=== PATIENT | male | born 1955 | race Caucasian/White ===

== ENCOUNTER 2020-09-16 10:00 | Outpatient (RCR) | payer BC, SELFPAY ==
--- NOTE | 2020-08-27 14:05 | HMH.PTOPEV ---
PT Outpatient Evaluation Rehab PT Outpatient Evaluation Start: 08/27/20 13:43 Freq: Status: Active Protocol: Document 08/27/20 13:43 GARY (Rec: 08/27/20 14:05 [email or web address] [id number]) Electronically Signed By Fran Newsome, PT 08/27/20 13:43 Outpatient Therapy Subjective History Subjective History Patient is a 65 year old male presenting to outpatient PT with reports of chronic LBP with RLE radicular symptoms that have progressively gotten worse over the past 4-5 months. Patient underwent L4/ 5 fusion approx 20 years ago, as well as lumbar spine discectomy. Observation indicates R lumbar lateral shift. Radicular symptoms specific to R heel and R anterior thigh/groin areas. Comorbidities inclulde hx of multiple lumbar spine surgeries, R knee pain Chief Complaint Pain,Paresthesia Symptom Type Ache,Sharp,Burning,Shooting Symptoms Relieved By Rest/Positioning Prior Functional Limitations None Current Functional Limitations Lifting,Housework,Standing, Squatting,Recreation Activity, Walking,Bending/Stooping Symptom Description Constant but Variable Level of pain today (0-10) 3 Pain scale - at its best (0-10) 2 Pain scale - at its worst (0-10) 8 Lumbopelvic Eval Posture Thoracic Spine Posture Standing Position Neutral Lumbar Spine Posture Standing Position Neutral Assistive device Assistive Devices None / NA Palapation tenderness right paraspinal tenderness Yes: 2/4 buttock tenderness Yes: 2/4 Lumbar/Sacral Palpation Findings Tenderness Accessory Movement L2 bilateral L3 bilateral L4 bilateral L5 bilateral S1 bilateral Range of Motion Lumbar Spine Active Flexion Range of 70 Motion (degrees) Lumbar Spine Active Extension Range of 18 inc radic Motion (degrees) Left Lumbar Spine Lateral Flexion Active 22 Range of Motion (degrees) Right Lumbar Spine Lateral Flexion 10 inc radic Active Range of Motion (degrees) Manual Muscle Test Bilateral Knee Extension Strength Grade 4 Good Knee Flexion Strength Grade 4 Good Hip Flexion Strength Grade 4 Good Extensor Halluc
== END 2020-09-16 10:05 | disposition home or self-care (01) ==
LOC: PT 10:00
PROVIDERS: PCP Internal Medicine Adolescent Medicine; Visit Provider Nurse Practitioner Family
DX: M54.41 Lumbago with sciatica, right side (principal)
CPT/HCPCS: 97010; 97012; 97014; 97110; 97163; G0283

== ENCOUNTER 2020-09-27 10:31 | Emergency (ER) | payer BC, SELFPAY ==
[2020-09-27] VITALS (7 sets, daily range): BP systolic 143–194; BP diastolic 45–83; PULSE 55–79; RESP 16–20; TEMP 37.2–37.4; O2SAT 95–99; BMI 26.6
--- NOTE | 2020-09-27 10:54 | CT_ITS ---
PROCEDURE: CT LUMBAR SPINE WO CON CLINICAL HISTORY: pain Low back pain with pain going into the right leg, prior lumbar surgery COMPARISON: No exams were available for comparison TECHNIQUE: Axial images obtained with sagittal and coronal reformats. All CT scans at the facility use one or more dose reduction, viz: automated exposure control, ma/kV adjustment per patient size (including targeted exams where dose is matched to indication, i.e. head), or iterative reconstruction technique. FINDINGS: There are no previous exams available for comparison. There is normal alignment. T10-T11: Mild degenerative disc disease. Left-sided facet and uncovertebral hypertrophy with left-sided lateral recess and foraminal narrowing. T11-T12: Degenerative disc disease with facet and ligamentum hypertrophy. 3 mm anterolisthesis of T11. There is mild wedging of T12 with loss of height anteriorly of 20 percent. T12-L1: Degenerative disc disease with endplate hypertrophic change with 2 mm retrolisthesis of T12. There is bulging disc. L1-L2: Degenerative disc disease with endplate hypertrophy with bulging disc eccentric toward the left with facet and ligamentum hypertrophy with mild left-sided foraminal narrowing. L2-L3: Degenerate disc disease with bulging disc along facet and ligamentum hypertrophy. There is a broad-based right paracentral and foraminal disc protrusion along with endplate hypertrophy on the right with moderate right lateral recess and foraminal narrowing. L3-L4: Degenerative disc disease with endplate hypertrophic change. There is bulging disc which is eccentric toward the right with prominent endplate spurring laterally on the right. There is increased soft tissue density within the right-sided neural foramen with enlargement of the foramen. This area measures 2 cm transverse and 0.9 cm AP a neoplastic process is considered such as a nerve sheath tumor. MRI without and with contrast suggested for further evaluation. An extruded herniated disc would be included in the differential diagnosis but should not cause foraminal enlargement. There is right lateral recess narrowing at this level and there is mild bilateral foraminal narrowing from bony hypertrophy. L4-5: Postsurgical changes with prior posterior laminectomy. There are cage disc spacers present with the posterior aspect of the right cage screw projecting slightly into the foraminal area. L5-S1: Degenerate disc disease with bulging disc somewhat eccentric toward the right with right lateral recess and foraminal narrowing. There is an air density present in the anterior aspect of the canal on the right and could be related to air within extruded herniated disc. MRI suggested for further evaluation. There is mild lumbar scoliosis convex left. IMPRESSION: 1. Abnormal CT of the lumbar spine with multilevel lumbar spondylosis with degenerative disc disease with bulging disc, osteophyte formation, and facet and ligamentum hypertrophy causing lateral recess narrowing and foraminal narrowing. Please see above for detailed description at each level. 2. Widening of the right L3-L4 neural foramen with increased soft tissue density in the foramen. 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 Extruded herniated disc would be included in the differential diagnosis. MRI without and with gadolinium enhancement suggested for further evaluation Dictated by: Reece Pritchard MD 09/27/2020 11:55 Reece Pritchard MD in [facility] 09/27/2020 11:55
--- NOTE | 2020-09-27 10:56 | CA_ITS ---
APPROVED REPORT Bilateral Lower Extremity Venous Study for Rate Reviewer: VIVIAN Indications Lower Extremity Pain: Right pain Vein Imaging CFV (R): compressive, spontaneous, phasic, augmentation SFJ (R): compressive, spontaneous, phasic, augmentation FEM (R): compressive, spontaneous, phasic, augmentation POP (R): Partially Compressible, Thrombus DFV (R): compressive, spontaneous, phasic, augmentation PTV (R): Compressible GSV (R): Compressible Peroneals (R):Compressible GAS (R): Compressible Findings A DVT is visualized in the popliteal vein of the right lower extremity. Reported to ED physician Conclusion A DVT is visualized in the popliteal vein of the right lower extremity. Reported to ED physician Electronically signed by : Reece Pritchard MD 09/29/2020 15:54:43
--- NOTE | 2020-09-27 10:57 | PC.NURSE ---
notified RT staff of doppler order, states she will call composition weatherboard installer staff and let us know when they will be here.
--- NOTE | 2020-09-27 11:20 | PC.NURSE ---
per RT, [facility] lab staff state they will be here in approx 1 hour for ordered test.
--- NOTE | 2020-09-27 12:21 | HMH.EDGENADL ---
ED Disposition Clinical Impression: Nerve sheath tumor, Intractable back pain, Degenerative disc disease, lumbar Disposition: Xfer Short-Term Hosp Condition on Discharge: Good Instructions: DI for Low Back Pain Referrals: Harris Romero MD [Primary Care Provider] - - Critical Care Critical Care Time: No Attestation: On 09/27/20, the high probability of a clinically significant, sudden or life threatening deterioration of the following system(s) required my full and direct attention, intervention and personal management. The time I documented below is in addition to time spent performing reported procedures but includes the following listed in this critical care notation. Medical Decision Making - Medical Records Medical records reviewed: Yes: I reviewed the patient's medical records. - Alcon Inquiry Pt receiving controlled substance: No Vital Signs: 09/27/20 10:37 09/27/20 11:15 Temperature 99.3 F Temperature Source Oral Pulse Rate [Right Radial] 79 67 Respiratory Rate 17 18 Blood Pressure [Right Arm] 194/83 H 168/7 H Blood Pressure Mean [Right Arm] 120 60 02 Sat by Pulse Oximetry 97 95 Oxygen Delivery Method Room Air Room Air Orders (Tests/Meds): ED MEDICATIONS Discontinued Medications Generic Name Dose Route Start Last Admin Trade Name Freq PRN Reason Stop Dose Admin Diazepam 5 mg 09/27/20 10:55 09/27/20 11:07 Diazepam 10mg/2ml Syringe IV 09/27/20 10:56 5 mg ONCE ONE Administration Morphine Sulfate 4 mg 09/27/20 10:55 09/27/20 11:07 Morphine 4mg/Ml Syringe IV 09/27/20 10:56 4 mg ONCE ONE Administration ORDERS Category Date Time Status CA venous doppler LE RT Stat Y 09/27/20 10:56 Ordered Medical Decision Narrative: 65-year-old male with known sciatica status post multiple back surgeries presenting with acutely worsening pain without interval trauma to the right lower extremity. Nontoxic, afebrile, hemodynamically stable, nonfocal, neuro intact. CT of the L-spine was obtained and demonstrated multilevel spondylolysis with concern for possible nerve sheath tumor. Pain was controlled with IV morphine and Valium. CBC and CMP are nonactionable. No MRI available at this facility so we will transfer for further work-up and management. Patient remained stable in my care. General Adult HPI - General Chief complaint: Back Pain/Injury Stated complaint: rt leg pain, sciatica Time Seen by Provider: 09/27/20 11:01 Mode of Arrival: Wheelchair Limitations: No Limitations Description of Symptoms (Recalled from ER Triage Doc. by RN): pt presents to ed with c/o sciatic pain that is in his posterior thigh and it radiates into his foot. pt states that he has been seeing dr romero for this complaint and the last few mornings the pain has worsened and it unbearable. no knew injury. back surgery x 2 in the past. - History of Present Illness HPI narrative: 65-year-old male with a history of sciatica presenting with acute on chronic pain to his right lower extremity that feels like electrical shooting pains from his back down into his foot on the posterior aspect of his right lower extremity. He normally takes hydrocodone for this but this has not helped in the last 2 weeks. There has been no interval trauma. He is now unable to ambulate due to the pain. He also has some numbness and tingling in his right foot. No loss or changes in bowel or bladder. No saddle anesthesia. No urinary retention. No fever, chills, nausea, vomiting, diarrhea, constipation. - Related Data Home Medications Medication Instructions Recorded Confirmed No Known Home Medications 09/27/20 09/27/20 Allergies Allergy/AdvReac Type Severity Reaction Status Date / Time No Known Allergies Allergy Verified 06/12/18 08:45 [facility] History - Hepatitis A Screen Drug use history?: No High risk sexual behaviors?: No History of sexually transmitted infection?: No Currently e
--- NOTE | 2020-09-27 12:44 | PC.NURSE ---
Addendum entered by Alyssa Armenta RN 09/27/20 12:49: [facility] Original Note: dr soto consulting with dr hidalgo with spine at [facility]. vascular reports that patient has right popliteal clot. dr soto notified. [facility].
--- NOTE | 2020-09-27 12:57 | PC.NURSE ---
[facility] has no beds available.
--- NOTE | 2020-09-27 12:59 | PC.NURSE ---
PT AND FAMILY UPDATED ON PLAN OF CARE
--- NOTE | 2020-09-27 13:01 | PC.NURSE ---
[facility] Called for pt transfer, paging hospitalist.
--- NOTE | 2020-09-27 13:25 | PC.NURSE ---
consulted with pharmacy to verify lovenox dosing.
--- NOTE | 2020-09-27 14:13 | PC.NURSE ---
dr soto consulting with dr tripp concerning possible transfer.
--- NOTE | 2020-09-27 14:34 | PC.NURSE ---
waiting for neuro surgeon to call back from [facility]
--- NOTE | 2020-09-27 14:36 | PC.NURSE ---
Dr Soto speaking with Dr Cerda from [facility]
--- NOTE | 2020-09-27 14:41 | PC.NURSE ---
patient accepted to [facility] by neurosurgery Dr Cerda. dr Cerda to consult with hospitalist. awaiting return call for bed placement.
--- NOTE | 2020-09-27 15:01 | PC.NURSE ---
called with a bed assignment for pt at this time, pt assigned to [facility] and gave number to give report and requested a face sheet.
== END 2020-09-27 15:44 | disposition short-term general hospital (02) ==
PROVIDERS: Emergency Provider Physician Assistant; PCP Internal Medicine Adolescent Medicine
DX: D49.2 Neoplasm of unspecified behavior of bone, soft tissue, and skin (principal); M51.36 Other intervertebral disc degeneration, lumbar region; Z87.891 Personal history of nicotine dependence; M54.31 Sciatica, right side
CPT/HCPCS: 72131; 93971; 96367; 96372; 96374; 96376; 99284

== ENCOUNTER → 2021-04-28 15:02 | Outpatient (CLI) | payer MEDICARE, BC, SELFPAY ==
[2021-04-28 15:33] LABS: Basophils % 0.3 % (0.1-2.0); Eosinophils # 0.2 K/mm3 (0.0-0.4); Eosinophils % 2.8 % (0.1-12.0); Hematocrit 38.6 % (42.0-52.0); Hemoglobin 12.9 g/dL (14.1-18.0); Lymphocytes % 25.4 % (10-50); Mean Corpuscular HGB Conc 33.3 g/dL (31.8-35.4); Mean Corpuscular Hemoglobin 27.7 pg (27.0-31.2); Mean Corpuscular Volume 83.3 fl (80-94); Mean Platelet Volume 7.5 fl (7.4-10.4); Monocytes # 0.5 K/mm3 (0.1-1.0); Monocytes % 5.5 % (1.7-9.3); Neutrophils # 5.3 K/mm3 (1.8-7.8); Neutrophils % 65.9 % (37.0-80.0); Platelet Count 325 K/mm3 (142-424); Red Blood Count 4.64 M/mm3 (4.60-6.20); Red Cell Distribution Width 16.1 % (11.5-17.5); White Blood Count 8.1 K/mm3 (4.8-10.8)
[2021-04-28 17:21] LABS: Chloride 101 mmol/L (98-107); Potassium 5.4 mmoL/L (3.5-5.1); Sodium 136 mmol/L (136-145)
[2021-04-28 17:24] LABS: Alanine Aminotransferase 22 U/L (12-78); Albumin Level 4.3 g/dl (3.5-5.0); Albumin/Globulin Ratio 1.5 (1.1-1.8); Alkaline Phosphatase 178 U/L (38-126); Anion Gap 15.4 mEq/L (5-15); Aspartate Amino Transferase 31 U/L (17-59); Bilirubin,Total 0.3 mg/dl (0.2-1.3); Blood Urea Nitrogen 21 mg/dl (9-20); Calcium 9.5 mg/dl (8.4-10.2); Carbon Dioxide 25 mmol/L (22.0-30.0); Estimated Glomerular Filt Rate 85 ml/min (>60); GFR (African American) 102 ML/MIN (>60); Globulin 2.9 g/dL (1.3-3.2); Glucose 90 mg/dl (74-100); Total Protein,Serum 7.2 g/dl (6.3-8.2)
== END ==
PROVIDERS: Visit Provider Nurse Practitioner Family
DX: M06.00 Rheumatoid arthritis without rheumatoid factor, unspecified site (principal); Z79.899 Other long term (current) drug therapy
CPT/HCPCS: 36415; 80053; 85025

== ENCOUNTER → 2021-11-25 11:33 | Outpatient (CLI) | payer MEDICARE, BC, SELFPAY ==
[2021-11-25 12:00] LABS: Basophils % 0.6 % (0.1-2.0); Eosinophils # 0.1 K/mm3 (0.0-0.4); Eosinophils % 1.7 % (0.1-12.0); Hematocrit 42.8 % (42.0-52.0); Hemoglobin 13.7 g/dL (14.1-18.0); Lymphocytes # 1.5 K/mm3 (0.7-4.5); Lymphocytes % 27.2 % (10-50); Mean Corpuscular HGB Conc 32.1 g/dL (31.8-35.4); Mean Corpuscular Hemoglobin 29.5 pg (27.0-31.2); Mean Corpuscular Volume 91.8 fl (80-94); Mean Platelet Volume 7.7 fl (7.4-10.4); Monocytes # 0.4 K/mm3 (0.1-1.0); Monocytes % 6.9 % (1.7-9.3); Neutrophils # 3.6 K/mm3 (1.8-7.8); Neutrophils % 63.6 % (37.0-80.0); Platelet Count 331 K/mm3 (142-424); Red Blood Count 4.66 M/mm3 (4.60-6.20); Red Cell Distribution Width 14.9 % (11.5-17.5); White Blood Count 5.6 K/mm3 (4.8-10.8)
[2021-11-25 12:32] LABS: Erythrocyte Sedimentation Rate 21 mm/hr (0-20)
[2021-11-25 12:52] LABS: Chol/HDL Ratio 4.3 (1-3.5); Cholesterol 167 mg/dl (140-200); HDL Cholesterol 39 mg/dl (40-60); Triglycerides 174 mg/dl (30-150); VLDL Cholesterol 35 mg/dL (0-40)
[2021-11-25 12:52] LABS: Alanine Aminotransferase 23 U/L (12-78); Albumin Level 4.3 g/dl (3.5-5.0); Albumin/Globulin Ratio 1.7 (1.1-1.8); Alkaline Phosphatase 117 U/L (38-126); Anion Gap 9.9 mEq/L (5-15); Aspartate Amino Transferase 32 U/L (17-59); Bilirubin,Total 0.4 mg/dl (0.2-1.3); Blood Urea Nitrogen 17 mg/dl (9-20); Calcium 9.5 mg/dl (8.4-10.2); Carbon Dioxide 31 mmol/L (22.0-30.0); Chloride 99 mmol/L (98-107); Estimated Glomerular Filt Rate 85 ml/min (>60); GFR (African American) 102 ML/MIN (>60); Globulin 2.5 g/dL (1.3-3.2); Glucose 97 mg/dl (74-100); Potassium 4.9 mmoL/L (3.5-5.1); Sodium 135 mmol/L (136-145); Total Protein,Serum 6.8 g/dl (6.3-8.2); Uric Acid 6.6 mg/dl (3.5-8.5)
[2021-11-25 13:03] LABS: Direct LDL Cholesterol 95.02 mg/dL (100-129)
[2021-11-25 13:08] LABS: C-Reactive Protein 2.8 mg/L (0-4)
== END ==
PROVIDERS: Internal Medicine; Visit Provider Nurse Practitioner Family
DX: Z00.00 Encounter for general adult medical examination without abnormal findings (principal); E78.5 Hyperlipidemia, unspecified; M06.00 Rheumatoid arthritis without rheumatoid factor, unspecified site; M10.9 Gout, unspecified; M15.9 Polyosteoarthritis, unspecified; Z79.899 Other long term (current) drug therapy
CPT/HCPCS: 36415; 80053; 80061; 84550; 85025; 85651; 86140

== ENCOUNTER 2023-01-01 09:45 | Observation (INO) | payer MEDICARE, BC, SELFPAY ==
[2023-01-01] VITALS (18 sets, daily range): BP systolic 121–155; BP diastolic 51–80; PULSE 61–85; RESP 12–22; TEMP 36.6–37; O2SAT 95–99; BMI 27.4
--- NOTE | 2023-01-01 10:18 | HMH.EDGENADL ---
Discharge Plan Disposition Patient Disposition: Home, Self-Care Prescriptions Prescriptions: No Action No Known Home Medications Referrals Follow up/Referrals: Harris Quinn MD [Primary Care Provider] - See instructions Activity Restrictions/Add. Instructions Additional Instructions/Restrictions: You presented today with nausea vomiting and diarrhea most likely viral in etiology. Please return with any significant abdominal pain or inability to tolerate anything by mouth. Clinical Impressions Clinical Impression: Nausea vomiting and diarrhea Instructions Patient Instructions: DI for Diarrhea and Traveler's Diarrhea -- Adult, DI for Diarrhea and Traveler's Diarrhea -- Child, DI for Nausea -- Adult, DI for Nausea -- Child Discharge ED Provider: Aryan Parrish General Adult HPI General Chief complaint: Nausea/Vomiting/Diarrhea Stated complaint: vomiting,diarrhea,fever,post covid Time Seen by Provider: 01/01/23 10:18 Mode of Arrival: Wheelchair Source of Information: Patient and Relative Limitations: No Limitations Description of Symptoms (Recalled from ER Triage Doc. by RN): Presents from home via POV d/t subjective fever, n/v/d since 9p last night. +COVID x 7 days; completed last dose of antivirals 12/30/22. Denies pain. History of Present Illness HPI narrative: Patient is a 67-year-old male presenting with nausea vomiting diarrhea multiple episodes since last night. States he did have some abdominal crampy discomfort however is having no pain right now currently. Denies any chest pain or shortness of breath. His daughter who accompanies him states he did have some dark emesis however he denies any melena or any hematochezia. Pain currently is at a 0. Denies any fever. States that he thought he had a subjective fever however triage vitals were negative and denies a fever at that point. Has not had any antipyretics. Does take a daily aspirin has a history of DVT but is not on any anticoagulants at this point. No sick contacts at home. Has had recent COVID that he is improving from and recently completed Paxlovid. Denies any respiratory symptoms. Related Data Home Medications Medication Instructions Recorded Confirmed No Known Home Medications 09/27/20 09/27/20 Allergies Allergy/AdvReac Type Severity Reaction Status Date / Time No Known Allergies Allergy Verified 06/12/18 08:45 [facility] Disclaimer: The information contained in this section may have been updated after the patient was seen, as this information can be updated by other users. Social History Smoking Status: Never smoker alcohol intake: never current occupational status: retired Travel in the last 8 weeks: None ROS Obtained: Yes All systems reviewed & no additional complaints except as documented Physical Exam General General appearance: alert and in no apparent distress Head Head exam: atraumatic and normocephalic Respiratory Respiratory exam: Present normal lung sounds bilaterally; Absent respiratory distress, wheezes or stridor Cardiovascular Cardiovascular exam: Absent tachycardia Abdominal Exam Abdominal exam: Present soft; Absent distention or tenderness Neurological Exam Neurological exam: Present alert and oriented X3 Medical Decision Making Alcon Inquiry Pt receiving controlled substance: No Alcon was queried for this patient: No Vital Signs: 01/01/23 09:58 01/01/23 10:31 01/01/23 11:00 Temperature 98.3 F Temperature Source Oral Pulse Rate 75 74 Pulse Rate [Right] 85 Respiratory Rate 18 21 12 Blood Pressure 133/52 L 129/54 L Blood Pressure [Right Arm] 146/75 H Blood Pressure Mean 79 79 Blood Pressure Mean [Right Arm] 98 02 Sat by Pulse Oximetry 99 99 99 Oxygen Delivery Method Room Air Room Air Room Air 01/01/23 11:30 Temperature Temperature Source Pulse Rate 78 Pulse Rate [Right] Respiratory Rate 15 Blood Pressure 124/52 L Blood Pressure [Right Arm] B
[2023-01-01 10:31] LABS: Basophils % 0.5 % (0.1-2.0); Eosinophils % 0.4 % (0.1-12.0); Hematocrit 46.5 % (42.0-52.0); Hemoglobin 15.6 g/dL (14.1-18.0); Lymphocytes # 0.5 K/mm3 (0.7-4.5); Mean Corpuscular HGB Conc 33.6 g/dL (31.8-35.4); Mean Corpuscular Volume 89.4 fl (80-94); Mean Platelet Volume 8.3 fl (7.4-10.4); Monocytes # 0.2 K/mm3 (0.1-1.0); Monocytes % 2.2 % (1.7-9.3); Neutrophils # 7.2 K/mm3 (1.8-7.8); Neutrophils % 90.8 % (37.0-80.0); Platelet Count 392 K/mm3 (142-424); Red Cell Distribution Width 14.5 % (11.5-17.5); White Blood Count 7.9 K/mm3 (4.8-10.8)
[2023-01-01 10:33] LABS: MANUAL DIFFERENTIAL MANUAL DIFFERENTIAL (MANUAL DIFF)
[2023-01-01 10:37] LABS: Alanine Aminotransferase 29 U/L (12-78); Albumin Level 4.7 g/dl (3.5-5.0); Albumin/Globulin Ratio 1.4 (1.1-1.8); Alkaline Phosphatase 143 U/L (38-126); Anion Gap 15.2 mEq/L (5-15); Aspartate Amino Transferase 33 U/L (17-59); Bilirubin,Total 0.7 mg/dl (0.2-1.3); Blood Urea Nitrogen 22 mg/dl (9-20); Calcium 9.9 mg/dl (8.4-10.2); Carbon Dioxide 30 mmol/L (22.0-30.0); Chloride 101 mmol/L (98-107); Creatinine Clearance Estimated 77 mL/min (50-200); Estimated Glomerular Filt Rate 75 ml/min (>60); GFR (African American) 90 ML/MIN (>60); Globulin 3.3 g/dL (1.3-3.2); Glucose 175 mg/dl (74-100); Potassium 4.2 mmoL/L (3.5-5.1); Sodium 142 mmol/L (136-145)
[2023-01-01 10:59] LABS: Lymphocytes % 7 % (10-50); Monocytes % 2 % (2-9); Neutrophils % 91 % (42-76); Platelet Estimate Normal; RBC Morphology Normal; Total Cells Counted 100
--- NOTE | 2023-01-01 11:36 | PC.NURSE ---
Ice chips provided. Pt attempting PO challenge. Pt updated on plan of care.
--- NOTE | 2023-01-01 11:55 | PC.NURSE ---
Pt tolerated PO challenge.
--- NOTE | 2023-01-01 12:41 | PC.NURSE ---
Dr. Parrish at bedside to reassess d/t recurrent vomiting. VO for Zofran 4mg IV.
--- NOTE | 2023-01-01 13:05 | PC.NURSE ---
Maria T provided. Phenergan administered. Daughter/patient updated on plan of care. Daughter left bedside and will return.
--- NOTE | 2023-01-01 13:30 | PC.NURSE ---
VALENTINE SANTOS at for update on POC
--- NOTE | 2023-01-01 13:39 | PC.NURSE ---
Gatorade provided. Attempting PO challenge.
--- NOTE | 2023-01-01 14:49 | PC.NURSE ---
Patient resting at this time. Tolerating oral fluids
--- NOTE | 2023-01-01 15:08 | PC.NURSE ---
Assisted patient to bathroom. +nausea/diarrhea. MD notified.
--- NOTE | 2023-01-01 15:21 | PC.NURSE ---
MD at bedside to reassess.
--- NOTE | 2023-01-01 15:29 | PC.NURSE ---
Rounded on patient; call light within reach. Dentures put in denture cups
--- NOTE | 2023-01-01 15:30 | PC.NURSE ---
Dr Parrish speaking with Dr Carney
--- NOTE | 2023-01-01 15:32 | PC.NURSE ---
ER MD at speaking with patient regarding POC
[2023-01-01 15:36] LABS: Influenza A, PCR Not Detected (NotDetected); Influenza B, PCR Not Detected (NotDetected)
--- NOTE | 2023-01-01 16:06 | PC.NURSE ---
Report called to CLEMENTINA Velasquez. Room 204-1.
[2023-01-01 16:11] LABS: Coronavirus 19, PCR Detected (NotDetected)
--- NOTE | 2023-01-01 16:36 | PC.NURSE ---
Pt arrived to the floor at this time
[2023-01-02] VITALS (7 sets, daily range): BP systolic 132–164; BP diastolic 47–58; PULSE 59–77; RESP 16–18; TEMP 36.9–37.4; O2SAT 95–100; BMI 24.6
[2023-01-02 08:30] LABS: Alanine Aminotransferase 20 U/L (12-78); Albumin Level 3.6 g/dl (3.5-5.0); Albumin/Globulin Ratio 1.4 (1.1-1.8); Alkaline Phosphatase 101 U/L (38-126); Anion Gap 10.8 mEq/L (5-15); Aspartate Amino Transferase 30 U/L (17-59); Bilirubin,Total 0.3 mg/dl (0.2-1.3); Blood Urea Nitrogen 20 mg/dl (9-20); Calcium 8.5 mg/dl (8.4-10.2); Carbon Dioxide 30 mmol/L (22.0-30.0); Chloride 106 mmol/L (98-107); Creatinine Clearance Estimated 69 mL/min (50-200); Estimated Glomerular Filt Rate 84 ml/min (>60); GFR (African American) 102 ML/MIN (>60); Globulin 2.6 g/dL (1.3-3.2); Glucose 94 mg/dl (74-100); Potassium 3.8 mmoL/L (3.5-5.1); Sodium 143 mmol/L (136-145); Total Protein,Serum 6.2 g/dl (6.3-8.2)
--- NOTE | 2023-01-02 08:59 | EXP.HP ---
History of Present Illness *Admission Date: 01/01/23 *Reason for visit:: Intractable nausea and vomiting *History of present illness: 67-year-old male with overall good health except for chronic back pain/DJD/sciatic issues who I saw last week in my office with COVID-19 infection. Given his age was placed on Paxlovid and did well over the next 3 to 4 days. He felt much better but about 36 hours ago began to suffer intractable vomiting along with diarrhea. He notes that many of his family members also had COVID-19 infection but their symptom complex had GI symptoms at the beginning of the disease. He lives at home with daughter and grandson who have been ill with a diarrheal illness but this was several days ago. He denies melena or hematochezia or fever. Work-up in the ER showed fairly normal labs and a benign abdomen exam but was admitted for IV fluids and antiemetics given his significant volume of emesis in the ER. [facility] Disclaimer: The information contained in this section may have been updated after the patient was seen, as this information can be updated by other users. Medical History (Updated 01/01/23 @ 16:53 by Eva Gomez RN) DVT (deep venous thrombosis) Surgical History Previous back surgery Family History (Updated 01/01/23 @ 16:53 by Eva Gomez RN) No significant family history Social History Smoking Status: Never smoker alcohol intake: never current occupational status: retired Travel in the last 8 weeks: None Review of Systems Review of Systems Review of systems:: pertinent systems reviewed and negative unless documented below Review of systems (narrative): Denies fevers currently, pulmonary symptoms, anginal symptoms or leg swelling. Meds Home Medications and Allergies Home Medications Medication Instructions Recorded Confirmed Type amlodipine 5 mg tablet 5 mg PO DAILY Hypertension 01/01/23 01/01/23 History aspirin 81 mg tablet,delayed 81 mg PO DAILY Heart failure 01/01/23 01/01/23 History release atorvastatin 80 mg tablet 40 mg PO DAILY Cholesterol 01/01/23 01/01/23 History bisoprolol fumarate 10 mg tablet 10 mg PO DAILY Hypertension 01/01/23 01/01/23 History folic acid 1 mg tablet 1 mg PO DAILY Supplement 01/01/23 01/01/23 History gabapentin 300 mg capsule 300 mg PO PM Rheumatoid arthritis 01/01/23 01/01/23 History hydrocodone 10 mg-acetaminophen 1 tab PO Q6HP PRN PAIN 01/01/23 01/02/23 History 325 mg tablet losartan 100 mg tablet 100 mg PO DAILY Hypertension 01/01/23 01/01/23 History methotrexate sodium 2.5 mg tablet 20 mg PO WEEKLY Arthritis 01/01/23 01/01/23 History New Prescriptions to Start Prescriptions: Allergies Allergy/AdvReac Type Severity Reaction Status Date / Time No Known Allergies Allergy Verified 06/12/18 08:45 Exam Data for Last 24 hours Vital signs and Labs for Last 24 Hours: Temp Pulse Resp BP Pulse Ox 98.5 F 70 17 138/53 L 95 01/02/23 07:47 01/02/23 07:47 01/02/23 07:47 01/02/23 07:47 01/02/23 07:47 Laboratory Results - last 24 hr 01/01/23 10:04: WBC 7.9, RBC 5.20, Hgb 15.6, Hct 46.5, MCV 89.4, MCH 30.0, MCHC 33.6, RDW 14.5, Plt Count 392, MPV 8.3, Neut % (Auto) 90.8 H, Lymph % (Auto) 6.0 L, [place] % (Auto) 2.2, Eos % (Auto) 0.4, Baso % (Auto) 0.5, Neut # (Auto) 7.2, Lymph # (Auto) 0.5 L, [place] # (Auto) 0.2, Eos # (Auto) 0.0, Baso # (Auto) 0.0, Total Counted 100, Neutrophils % (Manual) 91 H, Lymphocytes % (Manual) 7 L, Monocytes % (Manual) 2, Platelet Estimate Normal, RBC Morphology Normal 01/01/23 10:04: Sodium 142, Potassium 4.2, Chloride 101, Carbon Dioxide 30, Anion Gap 15.2 H, BUN 22 H, Creatinine 1.00, Estimated Creat Clear 77, Estimated GFR 75, Est GFR ( Amer) 90, Glucose 175 H, Calcium 9.9, Total Bilirubin 0.7, AST 33, ALT 29, Alkaline Phosphatase 143 H, Total Protein 8.0, Albumin 4.7, Globulin 3.3 H, Albumin/Globulin Ratio 1.4 02/11/23 15:27: SARS-CoV-2 (PCR
[2023-01-02 09:06] LABS: Adenovirus F 40/41, stool Not Detected (NotDetected); Astrovirus Not Detected (NotDetected); Campylobacter Not Detected (NotDetected); Clostridium Difficile A/B, PCR Not Detected (NotDetected); Cryptosporidium Not Detected (NotDetected); Cyclospora Cayetanesis Not Detected (NotDetected); Entamoeba histolytica Not Detected (NotDetected); Enteroaggregative E coli Not Detected (NotDetected); Enteropathogenic E coli Not Detected (NotDetected); Enterotoxigenic E coli Not Detected (NotDetected); Giardia lamblia Not Detected (NotDetected); Plesimonas Shigalloides, PCR Not Detected (NotDetected); Rotavirus A Not Detected (NotDetected); Salmonella, PCR Not Detected (NotDetected); Sapovirus Not Detected (NotDetected); Shiga-like toxin E coli Not Detected (NotDetected); Shigella Enterovasive E coli Not Detected (NotDetected); Vibrio Cholerae Not Detected (NotDetected); Vibrio, PCR Not Detected (NotDetected); Yersinia Entercolitica, PCR Not Detected (NotDetected)
[2023-01-02 09:49] LABS: Anion Gap 6.8 mEq/L (5-15); Blood Urea Nitrogen 20 mg/dl (9-20); Calcium 8.4 mg/dl (8.4-10.2); Carbon Dioxide 31 mmol/L (22.0-30.0); Chloride 108 mmol/L (98-107); Creatinine Clearance Estimated 69 mL/min (50-200); Estimated Glomerular Filt Rate 84 ml/min (>60); GFR (African American) 102 ML/MIN (>60); Glucose 91 mg/dl (74-100); Magnesium 1.7 mg/dl (1.6-2.3); Potassium 3.8 mmoL/L (3.5-5.1); Sodium 142 mmol/L (136-145)
[2023-01-02 11:55] LABS: Norovirus Detected (NotDetected)
[2023-01-03 03:50] VITALS: BP 142/63; PULSE 85; RESP 16; TEMP 37.1; O2SAT 97
[2023-01-03 03:51] VITALS: BMI 25.0
--- NOTE | 2023-01-03 06:03 | PC.NURSE ---
pt rested well through the night. no n/v. only 1 episode of diarrhea at the beginning of shift. stable on room air. no complaints. receiving iv fluids.
[2023-01-03 06:25] LABS: Basophils # 0.1 K/mm3 (0-0.2); Basophils % 0.8 % (0.1-2.0); Eosinophils # 0.1 K/mm3 (0.0-0.4); Eosinophils % 1.6 % (0.1-12.0); Hemoglobin 13.3 g/dL (14.1-18.0); Lymphocytes % 22.4 % (10-50); Mean Corpuscular HGB Conc 33.2 g/dL (31.8-35.4); Mean Corpuscular Hemoglobin 29.5 pg (27.0-31.2); Mean Platelet Volume 7.5 fl (7.4-10.4); Monocytes # 0.6 K/mm3 (0.1-1.0); Neutrophils % 68.2 % (37.0-80.0); Platelet Count 420 K/mm3 (142-424); Red Blood Count 4.49 M/mm3 (4.60-6.20); Red Cell Distribution Width 14.6 % (11.5-17.5); White Blood Count 8.8 K/mm3 (4.8-10.8)
[2023-01-03 06:36] LABS: Alanine Aminotransferase 18 U/L (12-78); Albumin Level 3.3 g/dl (3.5-5.0); Albumin/Globulin Ratio 1.3 (1.1-1.8); Alkaline Phosphatase 97 U/L (38-126); Anion Gap 8.5 mEq/L (5-15); Aspartate Amino Transferase 33 U/L (17-59); Bilirubin,Total 0.5 mg/dl (0.2-1.3); Blood Urea Nitrogen 13 mg/dl (9-20); Calcium 8.5 mg/dl (8.4-10.2); Carbon Dioxide 27 mmol/L (22.0-30.0); Chloride 104 mmol/L (98-107); Creatinine Clearance Estimated 70 mL/min (50-200); Estimated Glomerular Filt Rate 135 ml/min (>60); GFR (African American) 163 ML/MIN (>60); Globulin 2.5 g/dL (1.3-3.2); Glucose 87 mg/dl (74-100); Potassium 3.5 mmoL/L (3.5-5.1); Sodium 136 mmol/L (136-145); Total Protein,Serum 5.8 g/dl (6.3-8.2)
--- NOTE | 2023-01-03 07:18 | HMH.PHAINT1 ---
Pharmacy Intervention Comments: Home medication reconciliation completed using external fill history
[2023-01-03 08:00] VITALS: BP 131/56; PULSE 86; RESP 19; O2SAT 98
--- NOTE | 2023-01-03 08:45 | EXP.DC.SUM ---
General Admission date:: 01/01/23 Discharge date: 01/03/23 HPI HPI HPI: 67-year-old male with overall good health except for chronic back pain/DJD/sciatic issues who I saw last week in my office with COVID-19 infection. Given his age was placed on Paxlovid and did well over the next 3 to 4 days. He felt much better but about 36 hours ago began to suffer intractable vomiting along with diarrhea. He notes that many of his family members also had COVID-19 infection but their symptom complex had GI symptoms at the beginning of the disease. He lives at home with daughter and grandson who have been ill with a diarrheal illness but this was several days ago. He denies melena or hematochezia or fever. Work-up in the ER showed fairly normal labs and a benign abdomen exam but was admitted for IV fluids and antiemetics given his significant volume of emesis in the ER. Hospital Course Hospital Course Hospital Course: Patient did well over the last couple of days admission. Did well with clear liquids. Diarrhea resolved. PCR testing was done which showed norovirus. Patient this morning is able to take clear liquids down. No further emesis or diarrhea for the past 8 to 12 hours. He will be discharged home with supportive care. Instructed on a low-fat/no milk diet for the next 3 to 4 days. We will have appointment made in the office. Exam Data for Last 24 hours Vital signs and Labs for Last 24 Hours: Temp Pulse Resp BP Pulse Ox 98.8 F 86 19 131/56 L 98 01/03/23 03:50 01/03/23 08:00 01/03/23 08:00 01/03/23 08:00 01/03/23 08:00 Laboratory Results - last 24 hr 01/02/23 08:40: Stl Aeromonas (PCR) Not detected, Stl C. cayetanensis PCR Not detected, Stool Rotavirus (PCR) Not detected, Stl Adenov F 40/41 PCR Not detected, Stool Astrovirus (PCR) Not detected, Stool Campylobacter PCR Not detected, Stl C.difficile Tox PCR Not detected, Stool Cryptosporidium PCR Not detected, Stl E.coli Shiga Tox PCR Not detected, Stool E coli O157 PCR Not detected, Stl Enterotoxigenic E PCR Not detected, Stool EPEC (PCR) Not detected, Stool EAEC (PCR) Not detected, Stl E. histolytica PCR Not detected, Stool Giardia Lamblia PCR Not detected, Stool Salmonella PCR Not detected, Stool Sapovirus (PCR) Not detected, Stl P. shigelloides PCR Not detected, Stl Shigella/EIEC PCR Not detected, St Y.enterocolitica PCR Not detected, Stool Vibrio (PCR) Not detected, Stl Vibrio cholerae PCR Not detected, Stl Norovirus GI/GII PCR Detected A 01/02/23 09:35: Sodium 142, Potassium 3.8, Chloride 108 H, Carbon Dioxide 31 H, Anion Gap 6.8, BUN 20, Creatinine 0.90, Estimated Creat Clear 69, Estimated GFR 84, Est GFR ( Amer) 102, Glucose 91, Calcium 8.4, Magnesium 1.7 01/03/23 06:14: WBC 8.8, RBC 4.49 L, Hgb 13.3 L, Hct 40.0 L, MCV 89.0, MCH 29.5, MCHC 33.2, RDW 14.6, Plt Count 420, MPV 7.5, Neut % (Auto) 68.2, Lymph % (Auto) 22.4, [place] % (Auto) 7.0, Eos % (Auto) 1.6, Baso % (Auto) 0.8, Neut # (Auto) 6.0, Lymph # (Auto) 2.0, [place] # (Auto) 0.6, Eos # (Auto) 0.1, Baso # (Auto) 0.1 01/03/23 06:14: Sodium 136, Potassium 3.5, Chloride 104, Carbon Dioxide 27, Anion Gap 8.5, BUN 13 D, Creatinine 0.60 L D, Estimated Creat Clear 70, Estimated GFR 135, Est GFR ( Amer) 163 D, Glucose 87, Calcium 8.5, Total Bilirubin 0.5, AST 33, ALT 18, Alkaline Phosphatase 97, Total Protein 5.8 L, Albumin 3.3 L, Globulin 2.5, Albumin/Globulin Ratio 1.3 I & O for Last 24 hours: Intake & Output 12/31/22 01/01/23 01/02/23 01/03/23 11:59 11:59 11:59 11:59 Intake Total 1495 / 1495 840 / 840 Output Total 0 / 0 0 / 0 Balance 1495 / 1495 840 / 840 Weight 165 lb 147 lb 11.2 oz 150 lb 9 oz Microbiology Reports for the Last 24 Hours: Microbiology 01/02/23 08:40 Stool WBC Smear - Final Constitutional Constitutional: no acute distress *Routine HEENT Exam Head: Present normocephalic Eye: Present EOMI and PERRL ENT: Present mucous membranes moist *Routine Neck Exam Neck: Pre
--- NOTE | 2023-01-03 09:04 | HMH.PHAINT1 ---
Pharmacy Intervention Comments: Discussed discharge medications with patient. Patient verbalized understanding and had no questions at this time
--- NOTE | 2023-01-04 11:34 | CARE MANAGER ---
Contacted patient related to hospital discharge. He states he picked up his medication and is aware of follow up appointments. Denies questions and concerns. CLEMENTINA Michelle
== END 2023-01-03 10:16 | disposition home or self-care (01) ==
LOC: ER 12:08 → 2ND 15:45
PROVIDERS: Admitting Provider Family Medicine; Emergency Provider Student in an Organized Health Care Education/Training Program; PCP Internal Medicine Adolescent Medicine; Visit Provider Internal Medicine Adolescent Medicine
DX: R11.2 Nausea with vomiting, unspecified (principal); Z79.899 Other long term (current) drug therapy; I10 Essential (primary) hypertension; U07.1 COVID-19; M54.9 Dorsalgia, unspecified; M51.36 Other intervertebral disc degeneration, lumbar region; Z20.822 Contact with and (suspected) exposure to COVID-19; M51.17 Intervertebral disc disorders with radiculopathy, lumbosacral region
CPT/HCPCS: G0378; 36415; 80048; 80053; 83735; 85007; 85025; 87205; 87507; 99285; C9803; J2405; U0003; U0005

== ENCOUNTER → 2023-03-10 11:55 | Outpatient (CLI) | payer MEDICARE, BC, SELFPAY ==
--- NOTE | 2023-03-10 11:58 | XR_ITS ---
FINAL REPORT CLINICAL HISTORY: rt shoulder pain COMPARISON: None FINDINGS: RIGHT SHOULDER Three views demonstrate chronic deformity of the proximal humerus consistent with chronic fracture. No acute fracture or dislocation. There is mild AC and mild glenohumeral joint degenerative change. The visualized bony structures are well aligned. No soft tissue abnormality is seen. IMPRESSION: Degenerative changes with no acute bony abnormality. Reviewed, Interpreted and Dictated by Ramiro Duarte III, MD Transcribed by Alexandra Mercado Authenticated and [facility]
== END ==
PROVIDERS: PCP Internal Medicine Adolescent Medicine; Visit Provider Orthopaedic Surgery
DX: M25.511 Pain in right shoulder (principal)
CPT/HCPCS: 73030

== ENCOUNTER 2023-11-09 14:23 | Emergency (ER) | payer MEDICARE, BC, SELFPAY ==
--- NOTE | 2023-11-09 14:23 | ECG_ITS ---
APPROVED REPORT Exam: Resting ECG HR:75 bpm ECG Measurements Heart Rate 75 AXES QRSd 101 QRS 83 QT 339 T 120 QTc 368 Conclusion ATRIAL FIBRILLATION MODERATE T-WAVE ABNORMALITY, CONSIDER INFERIOR ISCHEMIA [-0.1+ mV T-WAVE IN II/aVF] ABNORMAL ECG UNCONFIRMED REPORT Electronically signed by : Harris Quinn MD 11/10/2023 19:47:35
[2023-11-09 14:24] VITALS: BP 164/79; PULSE 90; RESP 18; TEMP 36.9; O2SAT 99; BMI 27.4
[2023-11-09 14:34] LABS: POC Glucose,Bedside 125 (70-110)
--- NOTE | 2023-11-09 14:41 | CT_ITS ---
FINAL REPORT TECHNIQUE: NASCET technique utilized for stenosis evaluation. CLINICAL HISTORY: word finding difficulty FINDINGS: RIGHT CAROTID: There is moderate vascular calcification at the carotid bifurcation without significant stenosis. LEFT CAROTID: There is moderate vascular calcification at the carotid bifurcation. There is about 50% stenosis. VERTEBRALS: The vertebrals are patent. No significant stenosis is present. IMPRESSION: 50% stenosis of the left carotid artery. Reviewed, Interpreted and Dictated by Vega Grant MD Transcribed by Ines Burdick Authenticated and [facility]
--- NOTE | 2023-11-09 14:41 | CT_ITS ---
FINAL REPORT TECHNIQUE: Axial CT images were performed through the head. Coronal reformatted images were submitted. This study was performed with techniques to keep radiation doses as low as reasonably achievable (ALARA). Individualized dose reduction techniques using automated exposure control or adjustment of mA and/or kV according to the patient's size were employed. CLINICAL HISTORY: word finding difficulty FINDINGS: The head is asymmetrically positioned in the gantry. There is a large region of encephalomalacia in the posterior left frontal lobe consistent with sequela of prior infarct. The ventricles are normal in size. There is no evidence of hemorrhage. There is no mass or edema identified. There is no abnormal extra-axial fluid seen. The sinuses are well aerated. IMPRESSION: Chronic appearing findings without acute intracranial abnormality. Reviewed, Interpreted and Dictated by Vega Grant MD Transcribed by Ines Burdick Authenticated and [facility]
--- NOTE | 2023-11-09 14:41 | XR_ITS ---
FINAL REPORT CLINICAL HISTORY: dyspnea FINDINGS: SINGLE-VIEW CHEST The heart size is normal. The mediastinum is normal. The lungs are clear. There is no pneumothorax. IMPRESSION: No acute cardiopulmonary process. Reviewed, Interpreted and Dictated by Vega Grant MD Transcribed by Ines Burdick Authenticated and [facility]
--- NOTE | 2023-11-09 14:41 | CT_ITS ---
FINAL REPORT TECHNIQUE: thin section axial CT with and without IV contrast supplemented with multiplanar 3-D reconstruction of the head. This study was performed with techniques to keep radiation doses as low as reasonably achievable, (ALARA)individualized dose reduction techniques using automated exposure control or adjustment of mA and/or kV according to the patient's size were employed. CLINICAL HISTORY: word finding difficulty FINDINGS: The cranial circulation is unremarkable. There is no significant stenosis, aneurysm or occlusion. IMPRESSION: No acute process. Reviewed, Interpreted and Dictated by Vega Grant MD Transcribed by Ines Burdick Authenticated and [facility]
--- NOTE | 2023-11-09 14:43 | HMH.EDGENADL ---
Discharge Plan Disposition Patient Disposition: Home, Self-Care Condition: Good Prescriptions Prescriptions: New Eliquis 5 mg tablet 5 mg PO BID Qty: 60 0RF No Action methylprednisolone [Medrol (Vance)] 4 mg tablets,dose pack See Rx Instructions PO PER PKG DIR Qty: 21 0RF Rx Instructions: PO PER PKG DIR. May substitute dose equivilent Prednisone pack. losartan 100 mg Tablet 100 mg PO DAILY amlodipine 5 mg tablet 5 mg PO DAILY gabapentin 300 mg Capsule 300 mg PO PM atorvastatin 80 mg Tablet 40 mg PO DAILY bisoprolol fumarate 10 mg Tablet 10 mg PO DAILY folic acid 1 mg Tablet 1 mg PO DAILY methotrexate sodium 2.5 mg Tablet 20 mg PO WEEKLY Rx Instructions: take 8 2.5 mg pills once weekly Wednesdays hydrocodone-acetaminophen 10-325 mg Tablet 1 tab PO Q6HP PRN (Reason: PAIN) aspirin 81 mg Tablet,Delayed Release (Dr/Ec) 81 mg PO DAILY promethazine 25 mg tablet 25 mg PO Q6H PRN (Reason: nausea and vomiting) Qty: 20 0RF diphenoxylate-atropine [Lomotil] 2.5-0.025 mg tablet 1 tab PO Q6H PRN (Reason: diarrhea) Qty: 10 0RF Referrals Follow up/Referrals: John Lopes MD [Staff Physician] - See instructions Provider,MD Carmen [Referring] - See instructions Activity Restrictions/Add. Instructions Additional Instructions/Restrictions: You were evaluated in the emergency department today. On your scan, it looks like you have had an old stroke at some point in the past. You also have a 50% narrowing of your left carotid artery. You were found to have atrial fibrillation on EKG, so we are starting you on a blood thinner as discussed. Please strip picker your prescription for this and take as prescribed. Follow-up very closely with your primary care provider as well as cardiology. Your primary care provider will be able to refer you to neurology for further evaluation and management given your evidence of stroke. Return to the emergency department for new or worsening symptoms. Continue taking your aspirin and your statin at home. Clinical Impressions Clinical Impression: Word finding difficulty, A-fib, Carotid artery stenosis, Remote history of stroke Instructions Patient Instructions: DI for Stroke-Ischemic, DI for Atrial Fibrillation, Apixaban Discharge ED Provider: Meggan Cat General Adult HPI <J Aryan Parrish MD - Last Filed: 11/09/23 14:51> General Chief complaint: Neuro Symptoms/Deficit Stated complaint: Slurred speech, possible stroke Time Seen by Provider: 11/09/23 14:35 Mode of Arrival: Ambulatory Source of Information: Patient Limitations: No Limitations Description of Symptoms (Recalled from ER Triage Doc. by RN): c/o having to say his words 3/4 times before getting them out, symptoms started at 1:00. Daughter thought he was having a stroke. History of Present Illness HPI narrative: Patient is a 68-year-old male presenting today with word finding difficulty. 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 Patient denies any difficulty with speaking but does state every once a while he has a hard time with getting words out and feels like he is stuttering. Patient denies any headaches patient denies any neurologic symptoms including any changes in voice articulation, facial strength, other cranial nerve deficits, upper or lower extremity strength or sensation or any type of coordination or vision changes. Patient states because his daughter wanted him come to the emergency department this is what prompted his visit. He initially went to the urgent treatment clinic and they sent him to the emergency department. Related Data Home Medications Medic
[2023-11-09 14:51] LABS: Basophils % 0.3 % (0.1-2.0); Eosinophils # 0.1 K/mm3 (0.0-0.4); Eosinophils % 2.1 % (0.1-12.0); Hematocrit 42.3 % (42.0-52.0); Hemoglobin 14.3 g/dL (14.1-18.0); Lymphocytes # 1.7 K/mm3 (0.7-4.5); Lymphocytes % 29.4 % (10-50); Mean Corpuscular HGB Conc 33.8 g/dL (31.8-35.4); Mean Corpuscular Hemoglobin 31.1 pg (27.0-31.2); Mean Corpuscular Volume 91.7 fl (80-94); Monocytes # 0.3 K/mm3 (0.1-1.0); Monocytes % 5.5 % (1.7-9.3); Neutrophils # 3.6 K/mm3 (1.8-7.8); Neutrophils % 62.7 % (37.0-80.0); Platelet Count 311 K/mm3 (142-424); Red Blood Count 4.61 M/mm3 (4.60-6.20); Red Cell Distribution Width 15.5 % (11.5-17.5); White Blood Count 5.8 K/mm3 (4.8-10.8)
[2023-11-09 14:56] LABS: Chloride 100 mmol/L (98-107); Sodium 139 mmol/L (136-145)
[2023-11-09 14:57] LABS: Potassium 3.9 mmoL/L (3.5-5.1)
[2023-11-09 14:59] LABS: Alanine Aminotransferase 31 U/L (12-78); Alkaline Phosphatase 136 U/L (38-126); Anion Gap 13.9 mEq/L (5-15); Aspartate Amino Transferase 35 U/L (17-59); Bilirubin,Total 0.6 mg/dl (0.2-1.3); Blood Urea Nitrogen 12 mg/dl (9-20); Carbon Dioxide 29 mmol/L (22.0-30.0); Creatinine Clearance Estimated 74 mL/min (50-200); Estimated Glomerular Filt Rate 75 ml/min (>60); GFR (African American) 90 ML/MIN (>60)
[2023-11-09 15:00] LABS: Albumin Level 4.6 g/dl (3.5-5.0); Albumin/Globulin Ratio 1.7 (1.1-1.8); Calcium 9.5 mg/dl (8.4-10.2); Globulin 2.7 g/dL (1.3-3.2); Glucose 110 mg/dl (74-100); Total Protein,Serum 7.3 g/dl (6.3-8.2)
[2023-11-09 15:31] VITALS: BP 122/73; PULSE 63; O2SAT 98
--- NOTE | 2023-11-09 15:34 | PC.NURSE ---
checked on pt no needs at this time,call light at bs
[2023-11-09 16:00] VITALS: BP 127/53; PULSE 63; O2SAT 98
[2023-11-09 16:49] VITALS: BP 126/55; PULSE 69; RESP 17; TEMP 36.9; O2SAT 99
== END 2023-11-09 16:50 | disposition home or self-care (01) ==
PROVIDERS: Student in an Organized Health Care Education/Training Program; Emergency Provider Emergency Medicine; PCP Internal Medicine Adolescent Medicine
DX: I48.91 Unspecified atrial fibrillation (principal); I65.23 Occlusion and stenosis of bilateral carotid arteries; R47.89 Other speech disturbances; I10 Essential (primary) hypertension; E78.5 Hyperlipidemia, unspecified; Z86.73 Personal history of transient ischemic attack (TIA), and cerebral infarction without residual deficits; Z86.718 Personal history of other venous thrombosis and embolism; Z87.891 Personal history of nicotine dependence
CPT/HCPCS: 70450; 70496; 70498; 71045; 80053; 82962; 85025; 93005; 96360; 99285; Q9967

== ENCOUNTER 2023-11-22 07:30 | Day surgery (SDC) | payer MEDICARE, BC, SELFPAY ==
[2023-11-18 10:21] VITALS: BMI 27.4
[2023-11-22] VITALS (7 sets, daily range): BP systolic 89–151; BP diastolic 40–58; PULSE 52–69; RESP 15–17; TEMP 36.2–36.6; O2SAT 95–99
--- NOTE | 2023-11-22 07:42 | ECG_ITS ---
APPROVED REPORT Exam: Resting ECG HR:63 bpm ECG Measurements Heart Rate 63 AXES QRSd 97 QRS 61 QT 388 T 65 QTc 396 Conclusion ATRIAL FIBRILLATION ABNORMAL RHYTHM ECG UNCONFIRMED REPORT Electronically signed by : Harris Quinn MD 11/24/2023 20:39:01
--- NOTE | 2023-11-22 07:48 | CA_ITS ---
APPROVED REPORT EXAM: Comprehensive 2D, Doppler, and color-flow Echocardiogram Outside Plant Engineer: RT [place](R) Ht: 5 ft 4 in Wt: 160lbs BSA: 1.78 BP: 137/79 mmHg Indications: CP, ex smoker, SOB, HTN, AFIB, abn EKG Procedure After obtaining informed consent, patient underwent transesophageal echo in the [facility]. Type of Sedation : MAC Sedation was administered by Carmelo Sawyer C.R.N.A. Sedation start time: 9:30 Case end Time: 10:00 Sedation was achieved intravenously with: Transesophageal probe was inserted and advanced into esophagus without difficulty by Dr. Edilson Landry. Echo enhancement indication: R/O Thrombus. The GLORIA was performed without complications. Synchronized Cardioversion acheived with 150 Joules after 1 attempt(s). Rhythm following Synchronized Cardioversion: Normal Sinus Rhythm Throughout the procedure, the blood pressure, pulse oximetry, cardiac rhythm, and rate were monitored. The patient tolerated the procedure without adverse effects. Recovery from conscious sedation was uneventful and vital signs were stable. Left Ventricle The left ventricle is normal size. The left ventricular systolic function is normal. The left ventricular ejection fraction is within the normal range. There is increased LV wall thickness. There is normal LV segmental wall motion. LVEF is 55%. Right Ventricle The right ventricle is normal size. The right ventricular systolic function is normal. Atria The left atrium size is dilated. There is no thrombus suspected in the left atrium or the left atrial appendage. Spontaneous contrast was noted in the left atrial appendage. Ultrasound enhancing agent (UAE) demonstrated full opacification of the JOE with no evidence of filling defects, confirming the absence of JOE thrombus. The right atrium is dilated. Interatrial septum is intact without evidence of ASD or PFO. Aortic Valve The aortic valve is trileaflet. The aortic valve opens well. There is no aortic valvular stenosis. Trace aortic regurgitation. Mitral Valve The mitral valve is normal in structure. No evidence of mitral valve stenosis. Trace mitral regurgitation. Tricuspid Valve The tricuspid valve leaflets are thin and pliable. Mild tricuspid regurgitation. RVSP is 20-25 mmHg. Pulmonic Valve The pulmonary valve is normal in structure. Trace pulmonic regurgitation. Great Vessels The aortic root is normal in size. The ascending aorta is normal in size. Pericardium There is no pericardial effusion. Other Information Study Quality: Adequate Conclusion Normal biventricular systolic function. No significant valvular stenosis or regurgitation. Biatrial dilation. Spontaneous contrast was noted in the left atrial appendage. Ultrasound enhancing agent (UAE) demonstrated full opacification of the JOE with no evidence of filling defects, confirming the absence of JOE thrombus. Following the GLORIA, the patient underwent successful DCCV with 150J, after which he converted to NSR. Electronically signed by : Tiara Landry MD 11/22/2023 17:45:00
[2023-11-22] MEDS: LACTATED RINGERS 1000ML 1,000 ML 25 ML IV (08:04)
[2023-11-22 08:24] LABS: Basophils % 0.3 % (0.1-2.0); Eosinophils # 0.1 K/mm3 (0.0-0.4); Eosinophils % 1.6 % (0.1-12.0); Hematocrit 44.2 % (42.0-52.0); Hemoglobin 14.5 g/dL (14.1-18.0); Lymphocytes # 1.5 K/mm3 (0.7-4.5); Lymphocytes % 22.1 % (10-50); Mean Corpuscular HGB Conc 32.8 g/dL (31.8-35.4); Mean Corpuscular Hemoglobin 30.5 pg (27.0-31.2); Mean Corpuscular Volume 93.1 fl (80-94); Mean Platelet Volume 7.5 fl (7.4-10.4); Monocytes # 0.4 K/mm3 (0.1-1.0); Monocytes % 5.3 % (1.7-9.3); Neutrophils # 4.8 K/mm3 (1.8-7.8); Neutrophils % 70.6 % (37.0-80.0); Platelet Count 273 K/mm3 (142-424); Red Blood Count 4.75 M/mm3 (4.60-6.20); Red Cell Distribution Width 15.4 % (11.5-17.5); White Blood Count 6.8 K/mm3 (4.8-10.8)
[2023-11-22 08:27] LABS: Anion Gap 8.5 mEq/L (5-15); Blood Urea Nitrogen 19 mg/dl (9-20); Calcium 9.1 mg/dl (8.4-10.2); Carbon Dioxide 28 mmol/L (22.0-30.0); Chloride 104 mmol/L (98-107); Creatinine Clearance Estimated 67 mL/min (50-200); Estimated Glomerular Filt Rate 67 ml/min (>60); GFR (African American) 81 ML/MIN (>60); Glucose 97 mg/dl (74-100); Potassium 4.5 mmoL/L (3.5-5.1); Sodium 136 mmol/L (136-145)
[2023-11-22 08:27] LABS: INR 1.07 (0.9-1.1); Prothrombin Time 11.5 seconds (10.1-12.5)
--- NOTE | 2023-11-22 09:40 | EXP.ANES.CKL ---
[facility] Disclaimer: The information contained in this section may have been updated after the patient was seen, as this information can be updated by other users. Medical History Abnormal electrocardiogram [ECG] [EKG] DVT (deep venous thrombosis) History of atrial fibrillation History of hypertension History of rheumatoid arthritis Pre-op evaluation Surgical History History of foot surgery History of heart surgery Previous back surgery Family History Other Family history of coronary artery disease Social History Smoking Status: Former smoker alcohol intake: never substance use type: denies use current occupational status: retired Travel in the last 8 weeks: None [facility] Anesthesia Checklist Patient Identification Patient Identification: Verbal (Name & ) Structural Data Admitted From: Home Planned Operative Procedure/s: mirella,cardioversion Consent for Planned Operative Procedure(s) Verified: Yes Airway Assessment Mallampati Score:: Class I C-Spine Mobility Assessed: Yes TMJ Mobility Assessed: Yes Dentition: Partials Neurological Assessment Level of Consciousness: Awake, Alert and Appropriate Anesthesia Plan Anesthesia Risk discussed: Yes Anesthesia Plan: Verified ASA Class: III Anesthesia Type: MAC
[2023-11-22] MEDS: DEFINITY US ECHO CONTRAST 2ML INJ 2 MG IV (10:05)
--- NOTE | 2023-11-22 10:06 | ECG_ITS ---
APPROVED REPORT Exam: Resting ECG HR:55 bpm ECG Measurements Heart Rate 55 AXES GA 198 P 67 QRSd 106 QRS 28 QT 438 T 63 QTc 426 Conclusion SINUS BRADYCARDIA LOW QRS VOLTAGE IN PRECORDIAL LEADS [QRS DEFLECTION < 1.0 mV IN CHEST LEADS] BORDERLINE ECG UNCONFIRMED REPORT Electronically signed by : Harris Quinn MD 11/24/2023 20:38:56
== END 2023-11-22 11:00 | disposition home or self-care (01) ==
PROVIDERS: PCP Internal Medicine Adolescent Medicine; Visit Provider Internal Medicine
DX: I48.0 Paroxysmal atrial fibrillation (principal); I65.22 Occlusion and stenosis of left carotid artery; R94.31 Abnormal electrocardiogram [ECG] [EKG]; Z79.01 Long term (current) use of anticoagulants; Z79.899 Other long term (current) drug therapy
CPT/HCPCS: 80048; 85025; 85610; 92960; 93005; 93270; 93312; 93319; Q9957

== ENCOUNTER 2023-11-23 10:05 | Outpatient (CLI) | payer MEDICARE, BC, SELFPAY ==
--- NOTE | 2023-11-23 10:05 | CA_ITS ---
APPROVED REPORT EXAM: Comprehensive 2D, Doppler, and color-flow Echocardiogram Anesthesia Director: Erika Mckeon, RCS, RVS Ht: 5 ft 4 in Wt: 160lbs BSA: 1.78 BP: 137/79 mmHg Indications: Hx pediatric OHS with valve repair in 1968, AFIB, Pre-op clearance, HTN 2D Dimensions Aortic Root 2.70 cm LVEF (Rowe's) 53.50 % Left Atrium 3.36 cm LV Volume 93.40 mL RVID Base (AP4) 2.04 cm (M/F) 2.5-4.1 LV Volume Index 52.945566 mL/m2 M: 34 - 74 LVOT 1.61 cm (M/F) 1.5-2.5 EF AP4 55.70 % EF AP2 44.3 % EF BP 53.5 % GL Strain -15.1 % M-Mode Dimensions RVDd 2.03 cm (0.9-2.6) LVDd 5.06 cm (3.5-5.7) Ao Diam 3.12 cm (2.0-3.7) LVDs 2.66 cm (3.5-5.7) IVSd 0.94 cm (0.6-1.1) PWd 0.78 cm (0.6-1.1) EF (Teich) 78.60% EPSs 0.11 cm FS 47.40% EDV (Teich) 121.60 mL TAPSE 2.86 (<1.7) ESV (Teich) 26.00 mL LV Diastology E Decel Time 167 (160-240 msec) E/A Ratio 2.28 MED E' 9.2 (>= 7 cm/sec) MED A' 6.80 cm/s E'/MED E' Ratio 14.54 (<= 14) LAT E' 13.8 (>= 10 cm/sec) LAT A' 8.10 cm/s E/LAT E' Ratio 9.70 (<= 14) Aortic Valve LVOT Max 93.0 (70-110 cm/s) RAGHU Index 0.55 cm2/m2 LVOT VTI 22.25 cm AoV Peak Zachariah. 182.0 (50-130 cm/s) AI PHT 339.00 ms AO Mean GR. 7.40 (<5 mmHg) AO VTI 46.3 (18-25 cm) RAGHU (VTI) 0.98 (2.5-4.5 cm2) Mitral Valve MV E Max Zachariah. 134.0 (40-130 cm/s) MV A Velocity 59.0 (40-130 cm/s) E/A Ratio 2.28 MV Decel. Time 167 (160-240 ms) MV Mean Gr. 2.50 (<2mmHg) Tricuspid Valve TR P. Velocity 300.00 cm/s RAP Estimate 10.00 mmHg RVSP 46.00 mmHg Left Ventricle The left ventricle is normal size. The left ventricular systolic function is normal. The left ventricular ejection fraction is within the normal range. There is normal left ventricular wall thickness. There is normal LV segmental wall motion. Diastolic function is indeterminate. LVEF is 50-55%. Right Ventricle The right ventricle is normal size. The right ventricular systolic function is normal. Atria Left atrium is moderately dilated. Right atrium is moderately dilated. There is no Doppler evidence of interatrial shunt. Aortic Valve The aortic valve is mildly thickened. There is no aortic valvular stenosis. Mild aortic regurgitation. Mitral Valve There is mild mitral annular calcification (MAC). The mitral valve leaflets are mildly thickened. No evidence of mitral valve stenosis. Mild to moderate mitral regurgitation. Tricuspid Valve The tricuspid valve leaflets are thin and pliable. There is no tricuspid valve stenosis. Mild tricuspid regurgitation. RVSP is 35-40 mmHg. Pulmonic Valve The pulmonary valve is normal in structure. Trace pulmonic regurgitation. Great Vessels The aortic root is normal in size. The ascending aorta is normal in size. IVC is normal in size and collapses >50% with inspiration. Pericardium There is no pericardial effusion. Other Information Study Quality: Fair Conclusion Normal biventricular systolic function. Moderate biatrial dilation. Mild MR. Mild AI. Mild TR. Elevated RVSP 35-40 mmHg. Electronically signed by : Tiara Landry MD 11/26/2023 16:12:49
== END 2023-11-23 23:59 ==
LOC: RAD 10:05
PROVIDERS: PCP Internal Medicine Adolescent Medicine; Visit Provider Physician Assistant
DX: I48.91 Unspecified atrial fibrillation (principal); I65.29 Occlusion and stenosis of unspecified carotid artery; R94.31 Abnormal electrocardiogram [ECG] [EKG]; Z87.891 Personal history of nicotine dependence
CPT/HCPCS: 93306

== ENCOUNTER 2023-11-25 06:32 | Outpatient (CLI) | payer MEDICARE, BC, SELFPAY ==
--- NOTE | 2023-11-25 | CA_ITS ---
APPROVED REPORT Exam: Pharmacologic Technologist: Jazmine Guidry, Ht: 5 ft 4 in Wt: 160 lbs BSA: 1.78 m2 HR: 57 bpm BP: 120/40 mmHg Rhythm: sinus bradycardia Medical History Medications: Amlodipine,,,,, Aspirin,,,,, Gabapentin,,,,, Losartan,,,,, Atorvastatin,,,,, FOLIC ACID,,,,, Methotrexate,,,,, BisOPROLOL Fumarate,,,,, ElIQUIS,,,,, Hydrocodone Acetaminophen,,,,, Stress Test Details Test: LEXISCAN HR Resting HR: 57 bpm Max Heart Rate (APMHR): 153 bpm Max HR Achieved: 96 bpm Target HR (85% APMHR): 130 bpm % of APMHR: 63 Recovery HR: 74 bpm BP Resting BP: 120/40 mmHg Max BP: 132/41 mmHg Recovery BP: 115.0/39.0 mmHg ECG Resting ECG: sinus bradycardia Stress ECG: No significant ST changes Arrhythmia: None Clinical Exercise duration: 04:00 min Highest Stage Achieved: Exercise capacity: 1.0 METs Stress ECG Conclusion During lexiscan pt experinced mild chest discomfort, stomach and head discomfort. No arrhytmias noted. No significant ST changes. Conclusion: Unremarkable lexiscan stress. Myoview images reported separately. Test Summary REST . . . . . . . Sitting REST 05:23 . . 57 . 120/ 40 . . Stage 1 01:00 . . 82 . . . . Stage 2 01:00 . . 90 . 131/ 46 . . Stage 3 01:00 . . 78 . 132/ 41 . . Stage 4 01:00 . . 73 . 122/ 46 . Stop exercise at 04:00 RECOVERY 01:00 . . 71 . 115/ 39 . . RECOVERY 02:00 . . 67 . 116/ 39 . . RECOVERY 02:13 . . 72 . 116/ 39 . . Electronically signed by : Tiara Landry MD 11/27/2023 19:24:42
--- NOTE | 2023-11-25 06:48 | NM_ITS ---
APPROVED REPORT Exam: Nuclear Stress Test Indication: a-fib Patient Location: Outpatient Stress Tech: Jazmine SINHA Tech:CATHERINE Rodríguez RT(R)(N) Ht: 5 ft 10 in Wt: 200 lbs HR: 57 bpm BP: 120/40 mmHg BSA: 2.09 m2 Rhythm: Sinus bradycardia TID: 1.17 BMI: 28.6 History: Afib Procedure: Patient received 0.4 mg of intravenous Lexiscan, resting heart rate 57 bpm, resting blood pressure 120/40 mmHg, with Lexiscan maximum heart rate achieved was 96 bpm which is 85 % of the maximum predicted heart rate and blood pressure was 132/41 mmHg. With Lexiscan, patient denied any complaint of chest pain. Cardiac Stress and Resting SPECT Images: Cardiac Stress and Resting SPECT images were obtained using technetium 99m Myoview 32.6 mCi stress and 10.55 mCi at rest. Raw images demonstrate significant diaphragmatic overlap with the cardiac borders. This may affect the diagnostic interpretation of the study findings. Resting and stress imaging in supine position demonstrate a medium-sized, mild, fixed and tapered perfusion defect in the basal inferior LV wall. This is no longer visualized with prone stress imaging. Findings are suggestive of diaphragmatic attenuation. Gated imaging demonstrates normal global and regional LV systolic function. LVEF is calculated at 61%. Conclusion: Diaphragmatic attenuation is present. No definite evidence of fixed or reversible perfusion defects. Gated imaging demonstrates normal global and regional LV systolic function. LVEF is calculated at 61%. Electronically signed by : Tiara Landry MD 11/27/2023 19:29:39
[2023-11-25] MEDS: ISOTOPE MYOVIEW (PER STUDY) 1 DOSE IV (08:45)
[2023-11-25] MEDS: REGADENOSON 0.4MG/5ML SYRINGE 0.400000000000000022 MG IV (08:45)
[2023-11-25] MEDS: SODIUM CHLORIDE 0.9% 10ML SYR (RAD ONLY) 10 ML IV ×2 (08:45)
== END 2023-11-25 23:59 ==
LOC: RAD 06:33
PROVIDERS: PCP Internal Medicine Adolescent Medicine; Visit Provider Physician Assistant
DX: I48.91 Unspecified atrial fibrillation (principal); I65.29 Occlusion and stenosis of unspecified carotid artery; R94.31 Abnormal electrocardiogram [ECG] [EKG]
CPT/HCPCS: 78452; 93017; 93018; A9502; J2785

== ENCOUNTER 2023-12-21 10:24 | Outpatient (CLI) | payer MEDICARE, BC, SELFPAY ==
--- NOTE | 2023-12-21 10:27 | CA_ITS ---
FINAL REPORT TECHNIQUE: Multiple transverse and longitudinal images were performed of right the femoral-popliteal deep venous system with augmentation and compression maneuvers. CLINICAL HISTORY: RT LEG PAIN,HX DVT,PT ON ELIQUS FINDINGS: Right lower extremity duplex ultrasound demonstrates normal flow in the deep venous system. There is no abnormal echogenicity to suggest thrombus. There is normal compression and augmentation. IMPRESSION: No evidence of right DVT. Reviewed, Interpreted and Dictated by Aury Craig MD Transcribed by Lashon Scott Authenticated and [facility]
== END 2023-12-21 23:59 ==
LOC: RT 10:25
PROVIDERS: PCP Internal Medicine Adolescent Medicine; Visit Provider Specialist
DX: I48.0 Paroxysmal atrial fibrillation (principal); I48.91 Unspecified atrial fibrillation; M79.604 Pain in right leg; Z86.718 Personal history of other venous thrombosis and embolism
CPT/HCPCS: 93971

== ENCOUNTER 2023-12-23 09:43 | Outpatient (CLI) | payer MEDICARE, BC, SELFPAY ==
--- NOTE | 2023-12-23 | CA_ITS ---
FINAL REPORT CLINICAL HISTORY: SHER bruit COMPARISON: None FINDINGS: RIGHT CAROTID: CCA PSV -65 cm/sec ICA PSV -89 cm/sec ICA/CCA PSV ratio -1.5. Comments: Moderate plaque disease is noted. LEFTCAROTID: CCA PSV -94. cm/sec ICA PSV -125. cm/sec ICA/CCA PSV ratio -1.65. Comments: Moderate plaque disease is noted. Antegrade flow is seen within the vertebral arteries. IMPRESSION: Carotid stenosis classified less than 50%, with moderate plaque. Antegrade flow present in the vertebral arteries bilaterally. Reviewed, Interpreted and Dictated by Aury Craig MD Transcribed by Chary Del Cid Authenticated and [facility]
[2023-12-23 11:00] LABS: Chloride 104 mmol/L (98-107); Sodium 138 mmol/L (136-145)
[2023-12-23 11:02] LABS: Blood Urea Nitrogen 16 mg/dl (9-20); Estimated Glomerular Filt Rate 84 ml/min (>60); GFR (African American) 102 ML/MIN (>60)
[2023-12-23 11:03] LABS: Alanine Aminotransferase 29 U/L (12-78); Albumin Level 4.2 g/dl (3.5-5.0); Albumin/Globulin Ratio 1.8 (1.1-1.8); Alkaline Phosphatase 119 U/L (38-126); Aspartate Amino Transferase 35 U/L (17-59); Bilirubin,Total 0.5 mg/dl (0.2-1.3); Calcium 9.5 mg/dl (8.4-10.2); Carbon Dioxide 30 mmol/L (22.0-30.0); Globulin 2.4 g/dL (1.3-3.2); Glucose 94 mg/dl (74-100); Total Protein,Serum 6.6 g/dl (6.3-8.2)
== END 2023-12-23 23:59 ==
LOC: RT 09:43
PROVIDERS: PCP Internal Medicine Adolescent Medicine; Visit Provider Specialist
DX: I48.91 Unspecified atrial fibrillation; I63.9 Cerebral infarction, unspecified; R09.89 Other specified symptoms and signs involving the circulatory and respiratory systems
CPT/HCPCS: 36415; 80053; 93880

== ENCOUNTER 2024-01-02 15:28 | Outpatient (CLI) | payer MEDICARE, BC, SELFPAY | END 2024-01-02 23:59 | LOC: RAD 15:28 | PROVIDERS: PCP Internal Medicine Adolescent Medicine; Visit Provider Specialist | DX: I63.9 Cerebral infarction, unspecified (principal) ==

== ENCOUNTER 2024-03-20 08:44 | Outpatient (CLI) | payer MEDICARE, BC, SELFPAY ==
--- NOTE | 2024-03-20 08:58 | MR_ITS ---
FINAL REPORT TECHNIQUE: Multiplanar MR without contrast CLINICAL HISTORY: STROKE, FOLLOW UP MEMORY LOSS COMPARISON: None FINDINGS: Diffusion sequences show no signal abnormality to indicate acute infarct. There is encephalomalacia with gliosis in the right frontal lobe, likely secondary to a remote right middle cerebral artery distribution infarct. There is a chronic lacunar infarct in the right basal ganglia, and mild increased signal in the right occipital lobe, likely a small focus of encephalomalacia. There is a small old left cerebellar infarct present as well. Scattered periventricular white matter signal changes are seen compatible with mild moderate chronic ischemic gliotic disease. Mild generalized atrophy is present. No mass, hemorrhage or edema is seen. Ventricles are normal. Major vascular flow voids are intact. 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 No evidence of mass or hydrocephalus. Reviewed, Interpreted and Dictated by Aury Craig MD Transcribed by Chary Del Cid Authenticated and . [facility]
== END 2024-03-20 23:59 | disposition home or self-care (01) ==
LOC: RAD 08:46
PROVIDERS: PCP Internal Medicine Adolescent Medicine; Visit Provider Nurse Practitioner
DX: R41.3 Other amnesia (principal); I63.9 Cerebral infarction, unspecified
CPT/HCPCS: 70551

== ENCOUNTER 2024-04-30 04:13 | Emergency (ER) | payer MEDICARE, BC, SELFPAY ==
[2024-04-30 04:14] VITALS: BP 186/64; PULSE 61; RESP 20; TEMP 36.7; O2SAT 100; BMI 26.6
--- NOTE | 2024-04-30 04:17 | HMH.EDGENADL ---
Discharge Plan Disposition Patient Disposition: Home, Self-Care Condition: Good Prescriptions Prescriptions: New diclofenac sodium [Voltaren Arthritis Pain] 1 % gel 4 g topical QID Qty: 100 0RF Rx Instructions: apply to single knee, ankle, foot; for foot includes sole/toes/top of foot No Action loratadine [Claritin] 10 mg tablet 10 mg PO DAILY cholecalciferol (vitamin D3) 125 mcg (5,000 unit) capsule 125 mcg PO DAILY fish mpo-[id number]-4-vit C-vit E 2,000-650-12 mg/2.5 gram emulsion in packet See Rx Instructions PO .COMPLEX Rx Instructions: orally daily; famotidine [Pepcid] 20 mg tablet 20 mg PO DAILY buspirone 5 mg tablet 5 mg PO ONCE MDD 10 mg PRN (Reason: anxiety) Qty: 2 2RF Rx Instructions: 5 mg as needed for brain MRI. May repeat 5 mg as needed for anxiety. Eliquis 5 mg tablet See Rx Instructions .ROUTE .COMPLEX Qty: 180 3RF Dose Instruction: TAKE ONE TABLET BY MOUTH TWICE DAILY Rx Instructions: TAKE ONE TABLET BY MOUTH TWICE DAILY bisoprolol fumarate 5 mg tablet 5 mg PO DAILY Qty: 30 2RF losartan 100 mg Tablet 100 mg PO DAILY amlodipine 5 mg tablet 5 mg PO DAILY gabapentin 300 mg Capsule 300 mg PO PM atorvastatin 80 mg Tablet 40 mg PO DAILY folic acid 1 mg Tablet 1 mg PO DAILY methotrexate sodium 2.5 mg Tablet 20 mg PO WEEKLY Rx Instructions: take 8 2.5 mg pills once weekly Wednesdays hydrocodone-acetaminophen 10-325 mg Tablet 1 tab PO Q6HP PRN (Reason: PAIN) aspirin 81 mg Tablet,Delayed Release (Dr/Ec) 81 mg PO DAILY Referrals Follow up/Referrals: Harris Quinn MD [Primary Care Provider] - See instructions Activity Restrictions/Add. Instructions Additional Instructions/Restrictions: Please follow-up with the orthopedic doctor as discussed. Please return with any new or worsening symptoms. Clinical Impressions Clinical Impression: Acute pain of right shoulder Discharge ED Provider: Magnus Scott General Adult HPI General Chief complaint: Extremity Injury, Upper Stated complaint: R shoulder,R wrist, back pain Time Seen by Provider: 04/30/24 04:17 History of Present Illness HPI narrative: The patient presents with a chief complaint of severe shoulder pain that started yesterday. The patient has a history of arthritis and has been told he needs a shoulder replacement. The pain began while sitting in the living room and has worsened over the course of the evening. He denies any specific injury or event that may have caused the pain to worsen. The pain is now radiating down to the hand and wrist. The patient has tried using an ice pack and a lidocaine patch for relief, but the pain persists. He is right-handed and usually experiences pain around the shoulder joint. There is no reported swelling noted in the shoulder area. The patient takes hydrocodone (10 mg) for pain management, but it has not provided relief for the current shoulder pain. Occasional numbness in the hands is reported, but not currently. He also experiences pain in the back of the neck, which is attributed to lying down for extended periods. Please note that above description of symptoms, in this electronic medical record under categorization of recalled from ER triage doctor by RN are reflective of an initial nursing assessment, however, is not reflective of my full history and physical exam that was personally taken and clarified. Consequentially, this preceding description of symptoms, which may include the patient's categorized chief complaint in the EMR, do not reflect my personal clinical impression, and the ultimate description of history of present illness and patient stated complaints should be deferred to this section of the note. Unless stated otherwise or congruent with this section of the note, additional signs, symptoms, or incongruence should be interpreted as inaccurate with my clinical impression. Related Data Home Medications Medication Instructions Recorded Confirmed amlodipine 5 mg tablet 5 mg PO DAILY Hypertension 01/01/23 01/10/24 aspirin 81 mg tablet,delayed 81 mg PO DAILY Heart failure 01/01/23 01/10/24 release atorvastatin 80 mg tablet 40 mg PO DAILY Cholesterol 01/01/23 01/10/24 folic acid 1 mg tablet 1 mg PO DAILY Supplement 01/01/23 01/10/24 gabapentin 300 mg capsule 300 mg PO PM Rheumatoid arthritis 01/01/23 01/10/24 hydrocodone 10 mg-acetaminophen 1 tab PO Q6HP PRN PAIN 01/01/23 01/10/24 325 mg tablet losartan 100 mg tablet 100 mg PO DAILY Hypertension 01/01/23 01/10/24 methotrexate sodium 2.5 mg tablet 20 mg PO WEEKLY Arthritis 01/01/23 01/10/24 cholecalciferol (vitamin D3) 125 125 mcg PO DAILY 12/21/23 01/10/24 mcg (5,000 unit) capsule famotidine 20 mg tablet (Pepcid) 20 mg PO DAILY 12/21/23 01/10/24 fish emn--jwz C-vit E 2,000 See Rx Instructions PO .COMPLEX 12/21/23 01/10/24 mg-650 mg-12 mg/2.5 g emulsion packt loratadine 10 mg tablet (Claritin) 10 mg PO DAILY 12/21/23 01/10/24 Previous Rx's Medication Instructions Recorded buspirone 5 mg tablet 5 mg PO ONCE PRN anxiety #2 tabs 01/02/24 apixaban 5 mg tablet (Eliquis) See Rx Instructions .Route 02/14/24 .COMPLEX #180 tabs bisoprolol fumarate 5 mg tablet 5 mg PO DAILY #30 tabs 03/09/24 diclofenac sodium 1 % topical gel 4 g topical QID #100 grams 04/30/24 (Voltaren Arthritis Pain) Allergies Allergy/AdvReac Type Severity Reaction Status Date / Time No Known Allergies Allergy Verified 01/10/24 09:25 [facility] Disclaimer: The information contained in this section may have been updated after the patient was seen, as this information can be updated by other users. Medical History (Updated 04/30/24 @ 05:28 by Magnus Scott MD) Hyperlipidemia Hypertension History of hypertension History of rheumatoid arthritis History of atrial fibrillation Pre-op evaluation Abnormal electrocardiogram [ECG] [EKG] Carotid artery stenosis A-fib DVT (deep venous thrombosis) Surgical History History of foot surgery History of heart surgery Previous back surgery Family History Other Family history of coronary artery disease Social History Smoking Status: Never smoker alcohol intake: never substance use type: denies use current occupational status: retired Travel in the last 8 weeks: None ROS Obtained: Yes other As per HPI Physical Exam General General appearance: alert and in no apparent distress Head Head exam: atraumatic and normocephalic Eye Eye exam: Present normal appearance Neck Neck exam: Present normal inspection Chest Chest inspection: Present normal inspection and symmetric chest wall rise Respiratory Respiratory exam: Present normal lung sounds bilaterally; Absent respiratory distress Cardiovascular Cardiovascular exam: Present regular rate and normal rhythm Abdominal Exam Abdominal exam: Present soft Neurological Exam Neurological exam: Present alert and oriented X3 Psychiatric Psychiatric exam: Present normal affect and normal mood Skin Skin exam: Present warm and dry Other Other exam information: Tenderness to palpation of right shoulder, diffuse, distally neurovascularly intact. Medical Decision Making Medical Records Medical records reviewed: Yes I reviewed the patient's medical records. [place] Inquiry Pt receiving controlled substance: No Vital Signs: 04/30/24 04:14 04/30/24 05:44 Temperature 98.1 F 98.1 F Temperature Source Oral Oral Pulse Rate 88 Pulse Rate [Left] 61 Respiratory Rate 20 16 Blood Pressure 154/62 H Blood Pressure [Left Arm] 186/64 H Blood Pressure Mean [Left Arm] 104 Blood Pressure Source Automatic Cuff Blood Pressure Source [Left Arm] Automatic Cuff Blood Pressure Position Sitting Blood Pressure Position [Left Arm] Sitting 02 Sat by Pulse Oximetry 100 Oxygen Delivery Method Room Air Room Air Orders (Tests/Meds): ED MEDICATIONS Discontinued Medications Generic Name Dose Route Start Last Admin Trade Name Rosie PRN Reason Stop Dose Admin Diazepam 2 mg 04/30/24 05:27 04/30/24 05:35 Diazepam 2mg Tablet PO 04/30/24 05:28 Not Given ONCE ONE Diazepam 2.5 mg 04/30/24 05:35 04/30/24 05:40 Diazepam 5mg Tablet PO 04/30/24 05:36 2.5 mg ONCE ONE Administration Ibuprofen 600 mg 04/30/24 04:28 04/30/24 04:35 Ibuprofen 600 Mg Tablet PO 04/30/24 04:29 600 mg ONCE ONE Administration Methocarbamol 500 mg 04/30/24 04:28 04/30/24 04:35 Methocarbamol 500mg Tablet PO 04/30/24 04:29 500 mg ONCE STA Administration Oxycodone HCl 5 mg 04/30/24 04:28 04/30/24 04:35 Oxycodone 5mg Immediate Release Tablet PO 04/30/24 04:29 5 mg ONCE ONE Administration ORDERS Category Date Time Status XR shoulder RT min 2V Stat Exams 04/30/24 04:28 Completed Medical Decision Narrative: Patient with history and exam per above presenting for evaluation of shoulder pain Diagnoses considered include fracture, rotator cuff injury, dislocation, no clinical evidence of neck injury, vascular injury, nerve injury, stroke ED workup and treatment included: ED MEDICATIONS Discontinued Medications Generic Name Dose Route Start Last Admin Trade Name Rosie PRN Reason Stop Dose Admin Diazepam 2 mg 04/30/24 05:27 04/30/24 05:35 Diazepam 2mg Tablet PO 04/30/24 05:28 Not Given ONCE ONE Diazepam 2.5 mg 04/30/24 05:35 04/30/24 05:40 Diazepam 5mg Tablet PO 04/30/24 05:36 2.5 mg ONCE ONE Administration Ibuprofen 600 mg 04/30/24 04:28 04/30/24 04:35 Ibuprofen 600 Mg Tablet PO 04/30/24 04:29 600 mg ONCE ONE Administration Methocarbamol 500 mg 04/30/24 04:28 04/30/24 04:35 Methocarbamol 500mg Tablet PO 04/30/24 04:29 500 mg ONCE STA Administration Oxycodone HCl 5 mg 04/30/24 04:28 04/30/24 04:35 Oxycodone 5mg Immediate Release Tablet PO 04/30/24 04:29 5 mg ONCE ONE Administration ORDERS Category Date Time Status XR shoulder RT min 2V Stat Exams 04/30/24 04:28 Completed Imaging was independently visualized and interpreted by me, significant for no acute osseous abnormality, however likely rotator cuff injury. Please refer to radiology report for full details. My clinical impression at this time is most consistent with acute on chronic shoulder pain in the setting of known rotator cuff injury. Patient will follow-up with orthopedic surgery I discussed my clinical impression with patient and answered all questions. At this time, the evidence for any other entities in the differential is insufficient to warrant any further testing or ED observation. This was explained to the patient. The patient was advised that persistent or worsening symptoms require further evaluation. I confirmed the patient's understanding of this discussion. Critical Care Critical Care Time Critical Care Time: No
--- NOTE | 2024-04-30 04:28 | XR_ITS ---
PROCEDURE INFORMATION: Exam: XR Right Shoulder Exam date and time: 04/30/2024 4:31 AM Age: 69 years old Clinical indication: Pain; Shoulder; Right; Additional info: Shoulder pain TECHNIQUE: Imaging protocol: Radiologic exam of the right shoulder. Views: 2 or more views. COMPARISON: CR XR SHOULDER RT MIN 2V 03/10/2023 12:23 PM FINDINGS: Bones/joints: There is narrowing of the humeral acromial joint space with a downward sloping acromion. . Soft tissues: Normal. IMPRESSION: There is narrowing of the humeral acromial joint space with a downward sloping acromion. Consider MRI for further evaluation of possible rotator cuff tear.
[2024-04-30] MEDS: IBUPROFEN 600 MG TABLET PO (04:35)
[2024-04-30] MEDS: METHOCARBAMOL 500MG TABLET 500 MG PO (04:35)
[2024-04-30] MEDS: OXYCODONE 5MG IMMEDIATE RELEASE TABLET 5 MG PO (04:35)
[2024-04-30] MEDS: diazePAM 5MG TABLET 2.5 MG PO (05:40)
[2024-04-30 05:44] VITALS: BP 154/62; PULSE 88; RESP 16; TEMP 36.7; O2SAT 98
== END 2024-04-30 05:46 | disposition home or self-care (01) ==
PROVIDERS: Emergency Provider Emergency Medicine; PCP Internal Medicine Adolescent Medicine
DX: M25.511 Pain in right shoulder (principal); M25.531 Pain in right wrist; M79.641 Pain in right hand; M19.011 Primary osteoarthritis, right shoulder; M06.00 Rheumatoid arthritis without rheumatoid factor, unspecified site
CPT/HCPCS: 73030; 99283

== ENCOUNTER 2024-05-03 18:58 | Outpatient (CLI) | payer MEDICARE, BC, SELFPAY ==
--- NOTE | 2024-05-03 19:00 | MR_ITS ---
FINAL REPORT CLINICAL HISTORY: RIGHT SHOULDER PAIN FINDINGS: Multiplanar MR imaging of the right shoulder was performed without contrast. There are complete tears of the distal supraspinatus and infraspinatus tendons. Tendons are retracted medial to the glenoid. There is severe supraspinatus and infraspinatus muscle atrophy. There is a full-thickness tear of the superior distal subscapularis tendon with moderate to severe muscle atrophy. There is superior subluxation of the humerus with subacromial space narrowing. Large amount of fluid is seen in the subacromial/subdeltoid bursa. There is moderate AC joint degenerative change. Large joint effusion is identified. There is diffuse labral degeneration with a posterior labral tear. The long head of the biceps tendon is not seen consistent with a tear. There is abnormal T2 signal in the anterior and lateral muscle, may be related to muscle injury or myositis. Abnormal soft tissue is seen in the joint space and bursa, may represent synovitis or possible blood clot. IMPRESSION: Tears of the supraspinatus, infraspinatus, and subscapularis tendons with muscle atrophy as detailed above. Posterior labral tear. Tear of the long head of the biceps tendon. Muscle injury versus myositis. Abnormal soft tissue which may represent synovitis or possible blood clot. Reviewed, Interpreted and Dictated by Ramiro Duarte III, MD Transcribed by Ines Burdick Authenticated and [facility]
== END 2024-05-03 23:59 | disposition home or self-care (01) ==
LOC: RAD 18:58
PROVIDERS: PCP Internal Medicine Adolescent Medicine; Visit Provider Nurse Practitioner Family
DX: M25.511 Pain in right shoulder (principal)
CPT/HCPCS: 73221

== ENCOUNTER 2024-10-04 10:32 | Outpatient (CLI) | payer MEDICARE, BC, SELFPAY ==
--- NOTE | 2024-10-04 | CA_ITS ---
FINAL REPORT TECHNIQUE: Color Doppler, duplex Doppler and lopez scale sonography of the bilateral neck vasculature was performed. Velocities were measured in the carotid arteries. Stenosis evaluation based on velocity criteria. CLINICAL HISTORY: Bruit, SHER COMPARISON: None FINDINGS: The peak systolic velocity of the right common carotid artery is 65 cm/sec and internal carotid artery 104 cm/sec. The diastolic velocity in the internal carotid artery is 30 cm/sec. The ICA/CCA ratio is 1.6. Visually, a small to moderate amount of plaque is seen. These findings are consistent with less than 50% stenosis. The external carotid artery is patent. The right vertebral artery is patent with antegrade flow. The peak systolic velocity of the left common carotid artery is 91 cm/sec and internal carotid artery 113 cm/sec. The diastolic velocity in the internal carotid artery is 33 cm/sec. The ICA/CCA ratio is 1.86. Visually, a small to moderate amount of plaque is seen. These findings are consistent with less than 50% stenosis. The external carotid artery is patent. The left vertebral artery is patent with antegrade flow. IMPRESSION: Less than 50% diameter stenosis of the carotid arteries, with mild to moderate plaque. Bilateral patent vertebral arteries. If indicated, CTA or catheter angiography could further evaluate. Reviewed, Interpreted and Dictated by Ramiro Duarte III, MD Transcribed by Chary Del Cid Authenticated and [facility]
== END 2024-10-04 23:59 | disposition home or self-care (01) ==
LOC: RT 10:34
PROVIDERS: PCP Internal Medicine Adolescent Medicine; Visit Provider Nurse Practitioner
DX: I65.23 Occlusion and stenosis of bilateral carotid arteries (principal)
CPT/HCPCS: 93880

== ENCOUNTER 2024-11-16 09:00 | Outpatient (RCR) | payer MEDICARE, BC, SELFPAY | END 2024-11-16 23:59 | disposition home or self-care (01) | LOC: OT 09:00 | PROVIDERS: PCP Internal Medicine Adolescent Medicine; Visit Provider Physician Assistant | DX: M25.511 Pain in right shoulder (principal); Z96.611 Presence of right artificial shoulder joint | CPT/HCPCS: 97014; 97110; 97140; 97166; G0283 ==

== ENCOUNTER 2024-11-20 10:00 | Outpatient (RCR) | payer MEDICARE, BC, SELFPAY | END 2024-11-20 23:59 | disposition home or self-care (01) | LOC: PT 10:00 | PROVIDERS: PCP Internal Medicine Adolescent Medicine; Visit Provider Nurse Practitioner Family | DX: M54.41 Lumbago with sciatica, right side (principal) | CPT/HCPCS: 97110; 97163 ==

== ENCOUNTER 2024-12-19 15:00 | Outpatient (RCR) | payer MEDICARE, BC, SELFPAY | END 2024-12-19 23:59 | disposition home or self-care (01) | LOC: OT 15:00 | PROVIDERS: PCP Internal Medicine Adolescent Medicine; Visit Provider Physician Assistant | DX: Z96.611 Presence of right artificial shoulder joint (principal) | CPT/HCPCS: 97014; 97110; 97140; G0283 ==

== ENCOUNTER 2024-12-21 11:00 | Outpatient (RCR) | payer MEDICARE, BC, SELFPAY | END 2024-12-21 23:59 | disposition home or self-care (01) | LOC: PT 11:00 | PROVIDERS: PCP Internal Medicine Adolescent Medicine; Visit Provider Nurse Practitioner Family | DX: M54.41 Lumbago with sciatica, right side (principal) | CPT/HCPCS: 97110 ==

== ENCOUNTER 2025-01-10 10:00 | Outpatient (RCR) | payer MEDICARE, BC, SELFPAY | END 2025-01-10 23:59 | disposition home or self-care (01) | LOC: OT 10:00 | PROVIDERS: PCP Internal Medicine Adolescent Medicine; Visit Provider Physician Assistant | DX: Z96.611 Presence of right artificial shoulder joint (principal); Z98.890 Other specified postprocedural states | CPT/HCPCS: 97014; 97110; 97140; G0283 ==

== ENCOUNTER 2025-01-17 14:00 | Outpatient (RCR) | payer MEDICARE, BC, SELFPAY ==
--- NOTE | 2025-01-02 11:55 | HMH.RHREAS ---
Rehab Reassessment Rehab OP Re-assessment Start: 01/02/25 10:58 Freq: Status: Active Protocol: Document 01/02/25 11:45 PHOMiQUIN (Rec: 01/02/25 11:55 PHORNE [id number]) E-signed By Maurizio Crane, PT Oswestry Index Section 1 Pain Intensity The pain comes and goes and is moderate Section 2 Personal Care (Washing,[place]ing) increase the pain and I find it necessary to change my way of doing it Section 3 Lifting I can lift heavy weights, but it gives me extra pain Section 4 Walking I cannot walk more than 1/4 mile without increasing pain Section 5 Sitting I can sit in my favorite chair for as long as I like Section 6 Standing I cannot stand more than 1/2 hour without increasing pain Section 7 Sleeping I get pain in bed, but it does not prevent me from sleeping well Section 8 Social Life Pain has no significant effect on my social life apart from limiting Section 9 Traveling I get extra pain while traveling, but it does not compel me to seek al Section 10 Changing Degreee of Pain My pain seems to be getting better, but improvement is slow Score and Risk Level Oswestry Sc 21 Oswestry Risk Level Moderate Disability Rehab Re-assessment Subjective Subjective Pt reports he does feel better overall since initiating treatment, but continues to have increased pain with walking and standing while reaching type activities. Objective Objective Notes Pain: past 48 hr average low back pain was 4/10, at worst 7 /10. Lumbar AROM (in deg): FLEX 0- 70, EXT 0-15, R SB 0-20, L SB 0-15. MMT B LE: HIP FLEX 4+/5, HIP ABD 4+/5, KNEE EXT 4+/5, KNEE FLEX 4+/5 TTP: 0/4 lumbar spine throughout this date. Oswestry: 22 on IE vs 21 this date. Assessment Progress Assessment Progressing as Expected Assessment Notes Pt has shown improvements in overall lumbar spine AROM and B LE strength. However, he continues to have increased pain with walking and most of his ADLs, especially while using his arms in standing. Skilled therapy remains indicated to further improve core stability and reduce pain in an effort to improve pt QOL and return pt to PLOF. Patient goals met ST/5 LT/8 Plan Plan Continue per initial POC. Frequency of Therapy 2 x/wk Duration of therapy 4 wks Time and Billing Re-Eval Time 12 Re-Eval Billing Units 0 Charge for PT reassessment? No PHYSICIAN CERTIFICATION: I certify the specified therapy services for Eliza Lambert are required, authorized, and reviewed every 30 days.
== END 2025-01-17 23:59 | disposition home or self-care (01) ==
LOC: PT 14:00
PROVIDERS: PCP Internal Medicine Adolescent Medicine; Visit Provider Nurse Practitioner Family
DX: M54.41 Lumbago with sciatica, right side (principal)
CPT/HCPCS: 97014; 97110; G0283

== ENCOUNTER 2025-01-22 09:55 | Outpatient (RCR) | payer MEDICARE, BC, SELFPAY | END 2025-01-22 23:59 | disposition home or self-care (01) | LOC: PT 09:55 | PROVIDERS: PCP Internal Medicine Adolescent Medicine; Visit Provider Nurse Practitioner Family | DX: M54.41 Lumbago with sciatica, right side (principal) | CPT/HCPCS: 97014; 97110; G0283 ==

== ENCOUNTER 2025-01-30 09:55 | Emergency (ER) | payer MEDICARE, BC, SELFPAY ==
[2025-01-30] VITALS (11 sets, daily range): BP systolic 140–163; BP diastolic 58–69; PULSE 66–86; RESP 11–14; TEMP 36.6–36.9; O2SAT 96–100; BMI 28.3
--- NOTE | 2025-01-30 10:01 | ECG_ITS ---
APPROVED REPORT Exam: Resting ECG HR:69 bpm ECG Measurements Heart Rate 69 AXES NJ 172 P 61 QRSd 105 QRS 67 QT 383 T 86 QTc 401 Conclusion SINUS RHYTHM NORMAL ECG No STEMI Electronically signed by : AMARIS SWIFT, 01/31/2025 07:39:43
--- NOTE | 2025-01-30 10:13 | XR_ITS ---
FINAL REPORT TECHNIQUE: Chest PA & Lateral CLINICAL HISTORY: Right sided chest pain COMPARISON: 01/13/2021 FINDINGS: 2 views of the chest were performed. The heart size is normal. The mediastinum is within normal limits. There are mild chronic changes noted in both lungs. There is no acute cardiopulmonary process. There are no pleural effusions. There is no pneumothorax. The bony thorax appears intact. A right shoulder prosthesis is present. IMPRESSION: No acute cardiopulmonary process. Reviewed, Interpreted and Dictated by Vega Grant MD Transcribed by Airam Gonzalez Authenticated and [facility]
--- NOTE | 2025-01-30 10:14 | ED_ITS ---
Discharge Plan Disposition Patient Disposition: Home, Self-Care Condition: Good Prescriptions Prescriptions: New methocarbamol 1,000 mg tablet 1,000 mg PO QID PRN (Reason: Spasms) 3 Days Qty: 12 0RF lidocaine 5 % adhesive patch,medicated 1 patch topical DAILY Qty: 15 0RF Rx Instructions: leave on most painful area for up to 12 hrs No Action pyridoxine (vitamin B6) 50 mg tablet 50 mg PO DAILY Patient Comments: TAKE ONE TABLET BY MOUTH EVERY DAY atorvastatin 40 mg tablet 40 mg PO DAILY Patient Comments: TAKE ONE TABLET BY MOUTH EVERY DAY cyanocobalamin (vitamin B-12) 1,000 mcg/mL solution 1,000 mcg SQ MONTHLY Patient Comments: INJECT 1 ML SUBCUTANEOUSLY ONCE monthly DIRECTED (DME) BD Luer-Magdalena Syringe 3 mL 25 gauge x 1 syringe See Rx Instructions .ROUTE .MEDSUPPLY Qty: 1 Patient Comments: USE DIRECTED with b12 injection Rx Instructions: As directed loratadine [Claritin] 10 mg tablet 10 mg PO DAILY cholecalciferol (vitamin D3) 125 mcg (5,000 unit) capsule 125 mcg PO DAILY fish [id number]-[id number]-vit C-vit E 2,000-650-12 mg/2.5 gram emulsion in packet See Rx Instructions PO .COMPLEX Rx Instructions: orally daily; famotidine [Pepcid] 20 mg tablet 20 mg PO DAILY Eliquis 5 mg tablet See Rx Instructions .ROUTE .COMPLEX Qty: 180 3RF Dose Instruction: TAKE ONE TABLET BY MOUTH TWICE DAILY Rx Instructions: TAKE ONE TABLET BY MOUTH TWICE DAILY bisoprolol fumarate 5 mg tablet See Rx Instructions .ROUTE .COMPLEX Qty: 90 3RF Dose Instruction: TAKE ONE TABLET BY MOUTH EVERY DAY Rx Instructions: TAKE ONE TABLET BY MOUTH EVERY DAY losartan 100 mg Tablet 100 mg PO DAILY amlodipine 5 mg tablet 5 mg PO DAILY gabapentin 300 mg Capsule 300 mg PO PM folic acid 1 mg Tablet 1 mg PO DAILY hydrocodone-acetaminophen 10-325 mg Tablet 1 tab PO Q6HP PRN (Reason: PAIN) Referrals Follow up/Referrals: Harris Quinn MD [Primary Care Provider] - See instructions Activity Restrictions/Add. Instructions Additional Instructions/Restrictions: You likely have a muscle strain. You can take the Robaxin as prescribed. You could also use the lidocaine patches to help with symptoms. Continue the prednisone that was previously prescribed to you. Follow-up with your primary care physician if symptoms do not improve. If you develop any new or worsening symptoms, or if you become concerned for your health for any reason, return to the emergency department for evaluation Clinical Impressions Clinical Impression: Right-sided chest wall pain Print Language Print Language: Azeri Discharge ED Provider: Brad Burk General Adult HPI General Chief complaint: PAIN Stated complaint: sharp stabbing pain under R arm and pectoral muscl Time Seen by Provider: 01/30/25 10:07 History of Present Illness HPI narrative: Eliza Lambert is a 70y male with a past medical history of A-fib on Eliquis, hypertension, right shoulder surgery in July 2024 who presents to the emergency department for complaints of right-sided chest pain. Patient states that he was previously followed by occupational therapy and 5 weeks ago developed pain on the right side of his chest underneath his right armpit. He states that some of the exercises made this worse. He states that it is worse with certain movements. He states that he was seen by his primary care physician yesterday for these complaints and was told that is likely a muscle strain and was put on prednisone. He has taken 1 dose. He states that today, the pain is more sharp in nature as opposed to dull in his radiating more toward the middle of his chest. He denies any cough or fever. He denies any shortness of breath or abdominal pain or vomiting or diarrhea. Related Data Home Medications ?Medication ?Instructions ?Recorded ?Confirmed amlodipine 5 mg tablet 5 mg PO DAILY Hypertension 01/01/23 01/15/25 folic acid 1 mg tablet 1 mg PO DAILY Supplement 01/01/23 01/15/25 gabapentin 300 mg capsule 300 mg PO PM Rheumatoid arthritis 01/01/23 01/15/25 hydrocodone 10 mg-acetaminophen 1 tab PO Q6HP PRN PAIN 01/01/23 01/15/25 325 mg tablet losartan 100 mg tablet 100 mg PO DAILY Hypertension 01/01/23 01/15/25 cholecalciferol (vitamin D3) 125 125 mcg PO DAILY 12/21/23 01/15/25 mcg (5,000 unit) capsule famotidine 20 mg tablet (Pepcid) 20 mg PO DAILY 12/21/23 01/15/25 fish vor--ebz C-vit E 2,000 See Rx Instructions PO .COMPLEX 12/21/23 01/15/25 mg-650 mg-12 mg/2.5 g emulsion packt loratadine 10 mg tablet (Claritin) 10 mg PO DAILY 12/21/23 01/15/25 pyridoxine (vitamin B6) 50 mg 50 mg PO DAILY 07/17/24 01/15/25 tablet atorvastatin 40 mg tablet 40 mg PO DAILY 01/15/25 01/15/25 cyanocobalamin (vitamin B-12) 1,000 mcg SQ MONTHLY 01/15/25 01/15/25 1,000 mcg/mL injection solution syringe with needle 3 mL 25 gauge #1 ea 01/15/25 01/15/25 x 1 (BD Luer-Magdalena Syringe) Previous Rx's ?Medication ?Instructions ?Recorded apixaban 5 mg tablet (Eliquis) See Rx Instructions .Route 02/14/24 .COMPLEX #180 tabs bisoprolol fumarate 5 mg tablet See Rx Instructions .Route 06/13/24 .COMPLEX #90 tabs lidocaine 5 % topical patch 1 patch topical DAILY #15 ea 01/30/25 methocarbamol 1,000 mg tablet 1,000 mg PO QID PRN Spasms 72 01/30/25 hours #12 tabs Allergies Allergy/AdvReac Type Severity Reaction Status Date / Time No Known Allergies Allergy Verified 01/30/25 10:18 [facility] Disclaimer: The information contained in this section may have been updated after the patient was seen, as this information can be updated by other users. Medical History Hyperlipidemia Hypertension History of hypertension History of rheumatoid arthritis History of atrial fibrillation Pre-op evaluation Abnormal electrocardiogram [ECG] [EKG] Carotid artery stenosis A-fib DVT (deep venous thrombosis) Surgical History History of foot surgery History of heart surgery Previous back surgery Family History Other Family history of coronary artery disease Social History Smoking Status: Never smoker alcohol intake: never substance use type: denies use current occupational status: retired Travel in the last 8 weeks: None Have you lived/traveled outside [place] in past 30 days?: No Contact w/someone who lives/traveled outside [place] past 30 days?: No Exposure to someone with infectious disease in past 14 days?: No Do you have a fever (greater than 100.4 F or 38 C)?: No Have you tested positive for COVID-19: No Exposed to someone with COVID-19 in past 14 days?: No Do you have a sore throat?: No Do you have a cough?: No Do you have any weakness?: No Do you have any diarrhea?: No Are you experiencing any unusual bleeding?: No Do you have any muscle aches/pain?: No Do you have any abdominal pain?: No Are you experiencing loss of taste or smell?: No Other Medical History Have you received the Flu Vaccine for this season: No Have you received the Pneumonia Vaccine: Yes ROS Obtained: Yes Systems reviewed as appropriate & no additional complaints except as documented Physical Exam General General appearance: alert and in no apparent distress Comment: Appears mildly uncomfortable Head Head exam: atraumatic Eye Eye exam: Present normal appearance ENT ENT exam: Present normal external ear exam Neck Neck exam: Present full ROM Chest Chest inspection: Present symmetric chest wall rise and tenderness (Right anterior lateral chest wall just beneath the right breast but no rash or deformity.); Absent rash Respiratory Respiratory exam: Present normal lung sounds bilaterally; Absent respiratory distress Cardiovascular Cardiovascular exam: Present regular rate and normal rhythm Abdominal Exam Abdominal exam: Present soft; Absent tenderness or guarding exam: Present deferred Extremities Exam Extremities exam: Present normal inspection Back Exam Back exam: Present normal inspection Neurological Exam Neurological exam: Present alert and oriented X3 Psychiatric Psychiatric exam: Present normal affect Skin Skin exam: Present warm and dry Medical Decision Making Medical Records Screening: Per USPSTF and CDC recommendations, given the prevalence of disease in our region, it is our hospital?s policy to screen for HIV and viral Hepatitis for all patients aged 18 and over and those with ongoing risk factors. [place] Inquiry Pt receiving controlled substance: No Vital Signs: 01/30/25 09:59 01/30/25 10:00 01/30/25 10:04 Temperature 98.5 F Temperature Source Oral Pulse Rate 80 76 Pulse Rate [Right] 75 Respiratory Rate 14 Blood Pressure 163/69 H Blood Pressure [Right Arm] 163/69 H Blood Pressure Mean Blood Pressure Mean [Right Arm] 100 Blood Pressure Source Blood Pressure Source [Right Arm] Automatic Cuff Blood Pressure Position Blood Pressure Position [Right Arm] Sitting 02 Sat by Pulse Oximetry 98 96 97 Oxygen Delivery Method Room Air 01/30/25 10:15 01/30/25 10:30 01/30/25 10:31 Temperature Temperature Source Pulse Rate 66 Pulse Rate [Right] Respiratory Rate 11 L 13 Blood Pressure 163/59 H Blood Pressure [Right Arm] Blood Pressure Mean 83 Blood Pressure Mean [Right Arm] Blood Pressure Source Blood Pressure Source [Right Arm] Blood Pressure Position Blood Pressure Position [Right Arm] 02 Sat by Pulse Oximetry 100 Oxygen Delivery Method 01/30/25 10:31 01/30/25 10:45 01/30/25 11:01 Temperature Temperature Source Pulse Rate Pulse Rate [Right] Respiratory Rate 11 L 12 13 Blood Pressure 158/58 H Blood Pressure [Right Arm] Blood Pressure Mean Blood Pressure Mean [Right Arm] Blood Pressure Source Blood Pressure Source [Right Arm] Blood Pressure Position Blood Pressure Position [Right Arm] 02 Sat by Pulse Oximetry 97 Oxygen Delivery Method Room Air 01/30/25 11:30 01/30/25 12:00 01/30/25 12:18 Temperature 97.8 F Temperature Source Oral Pulse Rate 86 78 Pulse Rate [Right] Respiratory Rate 12 13 14 Blood Pressure 160/64 H 160/64 H 140/65 Blood Pressure [Right Arm] Blood Pressure Mean Blood Pressure Mean [Right Arm] Blood Pressure Source Automatic Cuff Blood Pressure Source [Right Arm] Blood Pressure Position Sitting Blood Pressure Position [Right Arm] 02 Sat by Pulse Oximetry 97 Oxygen Delivery Method Room Air Lab Data Lab Results 01/30/25 10:06: WBC 8.9, RBC 4.63, Hgb 13.4 L, Hct 40.5 L, MCV 87.5, MCH 28.9, MCHC 33.1, RDW 13.2, Plt Count 291, MPV 8.9, Neut % (Auto) 77.4, Lymph % (Auto) 18.0, [place] % (Auto) 4.2, Eos % (Auto) 0.1, Baso % (Auto) 0.1, Neut # (Auto) 6.9, Lymph # (Auto) 1.6, [place] # (Auto) 0.4, Eos # (Auto) 0.0, Baso # (Auto) 0.0, Sodium 139, Potassium 4.3, Chloride 104, Carbon Dioxide 24, Anion Gap 15.3 H, B UN 22 H, Creatinine 0.90, Estimated Creat Clear 76, Estimated GFR 84, Est GFR ( Amer) 101, Glucose 151 H, Calcium 9.6, Total Bilirubin 0.3, AST 42, ALT 37, Alkaline Phosphatase 121, Troponin I < 0.01, Total Protein 7.1, Albumin 4.6, Globulin 2.5, Albumin/Globulin Ratio 1.8, HCV Ab LARRY w/Rflx PCR Qn Negative, HIV Ag/Ab Combo Qual Negative 01/30/25 10:06 01/30/25 10:06 Orders (Tests/Meds): ED MEDICATIONS Discontinued Medications Generic Name Dose Route Start Last Admin Trade Name Freq PRN Reason Stop Dose Admin Acetaminophen 1,000 mg 01/30/25 10:17 01/30/25 10:22 Acetaminophen 500mg Tab PO 01/30/25 10:18 1,000 mg ONCE ONE Administration Ibuprofen 600 mg 01/30/25 10:13 01/30/25 10:21 Ibuprofen 600 Mg Tablet PO 01/30/25 10:14 600 mg ONCE ONE Administration Lidocaine 1 each 01/30/25 10:13 01/30/25 10:21 Lidocaine 5% Transdermal Patch TP 01/30/25 10:14 1 each ONCE ONE Administration ORDERS Category Date Time Status CXR 2 view (NOT portable) [XR chest 2V] Stat Exams 01/30/25 10:13 Completed CBC w/Auto Diff [Complete Blood Count Auto Diff] Stat Lab 01/30/25 10:06 Completed CMP [Comprehensive Metabolic Panel] Stat Lab 01/30/25 10:06 Completed HIV Combo Stat Lab 01/30/25 10:06 Completed Hepatitis C Ab Qual. W/ RFX Stat Lab 01/30/25 10:06 Completed Troponin I Stat Lab 01/30/25 10:06 Completed ECG Data Tracing #1: I reviewed this ECG and interpreted as documented below: EKG interpreted by me personally. Normal sinus rhythm ventricular rate of [address] elevation or depression. QTc normal at 401. MI interval normal at 172. Medical Decision Narrative: Eliza Lambert is a 70y male with a past medical history of A-fib on Eliquis, hypertension, right shoulder surgery in July 2024 who presents to the emergency department for complaints of right-sided chest pain. Patient states that he was previously followed by occupational therapy and 5 weeks ago developed pain on the right side of his chest underneath his right armpit. He states that some of the exercises made this worse. He states that it is worse with certain movements. He states that he was seen by his primary care physician yesterday for these complaints and was told that is likely a muscle strain and was put on prednisone. He has taken 1 dose. He states that today, the pain is more sharp in nature as opposed to dull in his radiating more toward the middle of his chest. He denies any cough or fever. He denies any shortness of breath or abdominal pain or vomiting or diarrhea. On arrival, patient is hypertensive with blood pressure 163/69, heart rate within normal limits, breathing comfortably on room air with oxygen saturation at 97% SpO2. Physical exam, stated above, revealed an uncomfortable appearing male who is in no acute distress. Cardiopulmonary exam is unremarkable with no murmurs, wheezing rales or rhonchi. He has some mild point tenderness over the right anterior lateral chest wall underneath the right breast. No swelling or erythema is noted. No rashes are appreciated. Abdomen is soft, nontender nondistended. Differential diagnosis includes, but is not limited to: ACS, pneumonia, empyema, muscle strain, pericarditis, among others. Workup in the emergency department included: 2 view chest x-ray, EKG, troponin, CMP, CBC. Patient was treated symptomatically with a lidocaine patch as well as 600 mg of ibuprofen and 1000 mg of Tylenol. Patient's EKG was grossly unremarkable without evidence of pericarditis. See interpretation above. Chest x-ray interpreted by me personally demonstrated no focal consolidation, no pneumothorax, no pulmonary effusion, no widening of the mediastinum or pneumomediastinum. See radiology report for final details. Laboratory studies revealed no leukocytosis, no significant anemia. CMP with mildly elevated anion gap of 15.3 but electrolytes otherwise within normal limits. Glucose mildly elevated 151. Liver enzymes and total bilirubin within normal limits. Initial troponin less than 0.01. On reassessment, patient reported that he has had some relief with medications and lidocaine patches provided today. Is felt that his symptoms are likely musculoskeletal in nature and unlikely to be cardiac given they are reproducible and negative workup today. Will have patient continue prednisone as prescribed and will give muscle relaxer and lidocaine patches for symptomatic relief. Instructed to follow-up with his primary care physician. Return precautions were given. All questions were answered. He demonstrated understanding and was agreed with this plan. He was then discharged from the emergency department in stable condition. Critical Care Critical Care Time Critical Care Time: No
[2025-01-30 10:19] LABS: Basophils % 0.1 % (0.1-2.0); Eosinophils % 0.1 % (0.1-12.0); Hematocrit 40.5 % (42.0-52.0); Hemoglobin 13.4 g/dL (14.1-18.0); Lymphocytes # 1.6 K/mm3 (0.7-4.5); Mean Corpuscular HGB Conc 33.1 g/dL (31.8-35.4); Mean Corpuscular Hemoglobin 28.9 pg (27.0-31.2); Mean Corpuscular Volume 87.5 fl (80-94); Mean Platelet Volume 8.9 fl (7.4-10.4); Monocytes # 0.4 K/mm3 (0.1-1.0); Monocytes % 4.2 % (1.7-9.3); Neutrophils # 6.9 K/mm3 (1.8-7.8); Neutrophils % 77.4 % (37.0-80.0); Platelet Count 291 K/mm3 (142-424); Red Blood Count 4.63 M/mm3 (4.60-6.20); Red Cell Distribution Width 13.2 % (11.5-17.5); White Blood Count 8.9 K/mm3 (4.8-10.8)
[2025-01-30] MEDS: LIDOCAINE 5% TRANSDERMAL PATCH 1 EACH TP (10:21)
[2025-01-30] MEDS: IBUPROFEN 600 MG TABLET PO (10:21)
[2025-01-30] MEDS: ACETAMINOPHEN 500MG TAB 1000 MG PO (10:22)
--- NOTE | 2025-01-30 10:22 | PC.NURSE ---
PT AMBULATORY TO RADIOLOGY
[2025-01-30 11:22] LABS: Alanine Aminotransferase 37 U/L (12-78); Albumin Level 4.6 g/dl (3.5-5.0); Alkaline Phosphatase 121 U/L (38-126); Anion Gap 15.3 mEq/L (5-15); Aspartate Amino Transferase 42 U/L (17-59); Bilirubin,Total 0.3 mg/dl (0.2-1.3); Blood Urea Nitrogen 22 mg/dl (9-20); Calcium 9.6 mg/dl (8.4-10.2); Carbon Dioxide 24 mmol/L (22.0-30.0); Chloride 104 mmol/L (98-107); Creatinine Clearance Estimated 76 mL/min (50-200); Estimated Glomerular Filt Rate 84 ml/min (>60); GFR (African American) 101 ML/MIN (>60); Glucose 151 mg/dl (74-100); Potassium 4.3 mmoL/L (3.5-5.1); Sodium 139 mmol/L (136-145)
[2025-01-30 11:29] LABS: HIV Combo NEGATIVE (Negative)
[2025-01-30 11:35] LABS: Troponin I < 0.01 ng/ml (0.00-0.034)
[2025-01-30 11:37] LABS: Hepatitis C Ab Qual. W/ RFX NEGATIVE (Negative)
[2025-01-30 11:52] LABS: Albumin/Globulin Ratio 1.8 (1.1-1.8); Globulin 2.5 g/dL (1.3-3.2); Total Protein,Serum 7.1 g/dl (6.3-8.2)
== END 2025-01-30 12:20 | disposition home or self-care (01) ==
PROVIDERS: Emergency Provider Student in an Organized Health Care Education/Training Program; PCP Internal Medicine Adolescent Medicine
DX: R07.89 Other chest pain (principal)
CPT/HCPCS: 71046; 80053; 84484; 85025; 86803; 87389; 93005; 99284

== ENCOUNTER 2025-02-19 10:08 | Outpatient (CLI) | payer MEDICARE, BC, SELFPAY ==
--- NOTE | 2025-02-19 10:09 | CT_ITS ---
FINAL REPORT TECHNIQUE: Axial CT images of the chest were obtained without contrast. Low-dose protocol was utilized. This study was performed with techniques to keep radiation doses as low as reasonably achievable (ALARA). Individualized dose reduction techniques using automated exposure control or adjustment of mA and/or kV according to the patient's size were employed. CLINICAL HISTORY: HX OF TOBACCO former smoker quit 15 years ago, 1 ppd for 56 years COMPARISON: None FINDINGS: CT CHEST WITHOUT, LOW DOSE SCREENING CTDl vol(mGy): 2.90 DLP (mGy-cm): 96.38 There is no axillary adenopathy. There is no hilar or mediastinal adenopathy. The heart size is normal. There is no pericardial or pleural effusion. Lung window images demonstrate a 2 mm nodule in the posterior right upper lobe on image 26 of series 3. Granuloma is favored given the presence of calcified granulomas in the right middle lobe. Limited images of the upper abdomen are unremarkable. IMPRESSION: No suspicious pulmonary nodule. Lung RADS category 2. Recommend 12 month follow-up low-dose chest CT per Fleischner criteria. Reviewed, Interpreted and Dictated by Aury Craig MD Transcribed by Airam Gonzalez Authenticated and [facility]
== END 2025-02-19 23:59 | disposition home or self-care (01) ==
LOC: RAD 10:09
PROVIDERS: PCP Internal Medicine Adolescent Medicine; Visit Provider Nurse Practitioner Family
DX: Z87.891 Personal history of nicotine dependence (principal)
CPT/HCPCS: 71271

== ENCOUNTER 2025-05-15 10:58 | Outpatient (CLI) | payer MEDICARE, BC, SELFPAY ==
[2025-05-15 11:45] LABS: Blood Urea Nitrogen 15 mg/dl (9-20); Estimated Glomerular Filt Rate 84 ml/min (>60); GFR (African American) 101 ML/MIN (>60)
== END 2025-05-15 23:59 | disposition home or self-care (01) ==
LOC: LAB 10:59
PROVIDERS: PCP Nurse Practitioner Family; Visit Provider Nurse Practitioner Family
DX: Z01.812 Encounter for preprocedural laboratory examination (principal)
CPT/HCPCS: 36415; 82565; 84520

== ENCOUNTER 2025-05-16 08:49 | Outpatient (POV) | payer MEDICARE, BC, SELFPAY ==
[2025-05-16 09:08] VITALS: BP 132/76; PULSE 75; RESP 18; O2SAT 96; BMI 29.2
--- NOTE | 2025-05-16 09:27 | EXP.PAIN.OV ---
HPI Data of Consult Patient: new to practice Consult date: 05/16/25 Requesting Physician: Meggan Ott APRN Primary Care Provider: Harris Quinn MD Reason for consult: Low back pain History of present illness: Mr. Lambert is a 70 year old male who presents today as a new patient. He is a referral from [facility]. Today he rates his pain a 2 out of 10 currently however with any type of increased activity such as bending twisting or walking the pain does go to at least a 5 or more. Patient states that he has had chronic back pain for years and it is progressively worsened. He denies any radiating symptoms into his legs currently. He states that he has had 3 previous back fusions and that these really did help and resolved his leg issues. He does describe the ongoing pain as an aching sensation and it does interfere with his ability perform activities of daily living such as cooking and cleaning. Patient denies any previous injection history. He has tried physical therapy and states that it did help however then he started to experience significant pain in a different area and had to stop. Patient has continued at home stretching exercise for longer than 12 weeks. Patient has also continue to use heat for temporary relief along with topicals such as capsaicin cream. He is also prescribed Powhattan and gabapentin from an outside provider. He states that the Powhattan does not really seem to work as well as he has been on it for such a long time. Patient is interested in any help we may be able to provide. Pain at rest (0-10 scale): 5 Has patient had previous pain injection?: No Conservative treatment options previously tried: Home exercise plan (Longer than 12 weeks) and Physical Therapy (Longer than 6 weeks) cc:: CC: Meggan Ott APRN [facility] Disclaimer: The information contained in this section may have been updated after the patient was seen, as this information can be updated by other users. Medical History Hyperlipidemia Hypertension History of hypertension History of rheumatoid arthritis History of atrial fibrillation Pre-op evaluation Abnormal electrocardiogram [ECG] [EKG] Carotid artery stenosis A-fib DVT (deep venous thrombosis) Surgical History History of foot surgery History of heart surgery Previous back surgery Family History Other Family history of coronary artery disease Social History (Updated 05/16/25 @ 09:09 by Summer Brady RN) Smoking Status: Never smoker alcohol intake: never substance use type: denies use current occupational status: retired Travel in the last 8 weeks?: None Review of Systems Review of Systems Review of systems:: pertinent systems reviewed and negative unless documented below Review of systems (narrative): Review of Systems: General: No recent weight changes, no fever, no sleep disturbances Respiratory: No cough, no shortness of air, no recurring pulmonary infections Cardiovascular/peripheral vascular: No chest pain, no palpitations, no edema, no shortness of breath Gastrointestinal: No new onset incontinence, normal bowel movements reported Genitourinary: No new onset incontinence Musculoskeletal: Low back pain Psychiatric: [Normal mood/affect] Neurological: [Denies weakness in extremities], [denies balance issues] Meds Home Medications and Allergies Home Medications ?Medication ?Instructions ?Recorded ?Confirmed ?Type amlodipine 5 mg tablet 5 mg PO DAILY Hypertension 01/01/23 05/16/25 History folic acid 1 mg tablet 1 mg PO DAILY Supplement 01/01/23 05/16/25 History gabapentin 300 mg capsule 300 mg PO PM Rheumatoid arthritis 01/01/23 05/16/25 History hydrocodone 10 mg-acetaminophen 1 tab PO Q6HP PRN PAIN 01/01/23 05/16/25 History 325 mg tablet losartan 100 mg tablet 100 mg PO DAILY Hypertension 01/01/23 05/16/25 History cholecalciferol (vitamin D3) 125 125 mcg PO DAILY 12/21/23 05/16/25 History mcg (5,000 unit) capsule famotidine 20 mg tablet (Pepcid) 20 mg PO DAILY 12/21/23 05/16/25 History fish jki--mer C-vit E 2,000 See Rx Instructions PO .COMPLEX 12/21/23 05/16/25 History mg-650 mg-12 mg/2.5 g emulsion packt loratadine 10 mg tablet (Claritin) 10 mg PO DAILY 12/21/23 05/16/25 History bisoprolol fumarate 5 mg tablet See Rx Instructions .Route 06/13/24 05/16/25 Rx .COMPLEX #90 tabs pyridoxine (vitamin B6) 50 mg 50 mg PO DAILY 07/17/24 05/16/25 History tablet atorvastatin 40 mg tablet 40 mg PO DAILY 01/15/25 05/16/25 History cyanocobalamin (vitamin B-12) 1,000 mcg SQ MONTHLY 01/15/25 05/16/25 History 1,000 mcg/mL injection solution syringe with needle 3 mL 25 gauge #1 ea 01/15/25 05/16/25 History x 1 (BD Luer-Magdalena Syringe) lidocaine 5 % topical patch 1 patch topical DAILY #15 ea 01/30/25 05/16/25 Rx methocarbamol 1,000 mg tablet 1,000 mg PO QID PRN Spasms 72 01/30/25 05/16/25 Rx hours #12 tabs apixaban 5 mg tablet (Eliquis) See Rx Instructions .Route 02/25/25 05/16/25 Rx .COMPLEX #180 tabs New Prescriptions to Start Prescriptions: Allergies Allergy/AdvReac Type Severity Reaction Status Date / Time No Known Allergies Allergy Verified 01/30/25 10:18 Objective Vital signs: Pulse Resp BP Pulse Ox O2 Del Method 75 18 132/76 96 Room Air 05/16/25 09:08 05/16/25 09:08 05/16/25 09:08 05/16/25 09:08 05/16/25 09:08 Narrative: Physical Exam: General: Alert and oriented x3, no acute distress, pleasant and cooperative Lungs: Respirations even and unlabored, symmetrical chest expansion Eyes: PERRL Musculoskeletal: Flexion and extension of lumbar [spine] somewhat guarded secondary to pain, [antalgic gait noted] positive Kemps test Neurological: Speech clear, no gross sensory deficit Additional findings Additional findings: FINDINGS: There are no previous exams available for comparison. There is normal alignment. T10-T11: Mild degenerative disc disease. Left-sided facet and uncovertebral hypertrophy with left-sided lateral recess and foraminal narrowing. T11-T12: Degenerative disc disease with facet and ligamentum hypertrophy. 3 mm anterolisthesis of T11. There is mild wedging of T12 with loss of height anteriorly of 20 percent. T12-L1: Degenerative disc disease with endplate hypertrophic change with 2 mm retrolisthesis of T12. There is bulging disc. L1-L2: Degenerative disc disease with endplate hypertrophy with bulging disc eccentric toward the left with facet and ligamentum hypertrophy with mild left-sided foraminal narrowing. L2-L3: Degenerate disc disease with bulging disc along facet and ligamentum hypertrophy. There is a broad-based right paracentral and foraminal disc protrusion along with endplate hypertrophy on the right with moderate right lateral recess and foraminal narrowing. L3-L4: Degenerative disc disease with endplate hypertrophic change. There is bulging disc which is eccentric toward the right with prominent endplate spurring laterally on the right. There is increased soft tissue density within the right-sided neural foramen with enlargement of the foramen. This area measures 2 cm transverse and 0.9 cm AP a neoplastic process is considered such as a nerve sheath tumor. MRI without and with contrast suggested for further evaluation. An extruded herniated disc would be included in the differential diagnosis but should not cause foraminal enlargement. There is right lateral recess narrowing at this level and there is mild bilateral foraminal narrowing from bony hypertrophy. L4-5: Postsurgical changes with prior posterior laminectomy. There are cage disc spacers present with the posterior aspect of the right cage screw projecting slightly into the foraminal area. L5-S1: Degenerate disc disease with bulging disc somewhat eccentric toward the right with right lateral recess and foraminal narrowing. There is an air density present in the anterior aspect of the canal on the right and could be related to air within extruded herniated disc. MRI suggested for further evaluation. There is mild lumbar scoliosis convex left. IMPRESSION: 1. Abnormal CT of the lumbar spine with multilevel lumbar spondylosis with degenerative disc disease with bulging disc, osteophyte formation, and facet and ligamentum hypertrophy causing lateral recess narrowing and foraminal narrowing. Please see above for detailed description at each level. 2. Widening of the right L3-L4 neural foramen with increased soft tissue density in the foramen. 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 Extruded herniated disc would be included in the differential diagnosis. MRI without and with gadolinium enhancement suggested for further evaluation Dictated by: Reece Pritchard MD 09/27/2020 11:55 Reece Pritchard MD in OV 09/27/2020 11:55 Assessment and Plan *Assessment and plan (1) Degenerative disc disease: Status: Acute Category: Medical (2) Lumbar facet arthropathy: Status: Acute Category: Medical Code(s): M47.816 - Spondylosis without myelopathy or radiculopathy, lumbar region (3) History of lumbar fusion: Status: Acute Category: Surgical Code(s): Z98.1 - Arthrodesis status (4) Chronic back pain: Status: Acute Category: Medical Code(s): M54.9 - Dorsalgia, unspecified; G89.29 - Other chronic pain Plan Patient is experiencing significant pain in his low back that is worse with bending, twisting or lifting. Patient did have limited range of motion of his lumbar spine with a positive Kemps test during today's visit. I did discuss with the patient that I do believe he would benefit from a lumbar medial branch block. Risk and benefits were discussed with the patient and he would like to proceed forward with this plan of care. Patient has tried and failed conservative therapy including oral medications, heat and ice, topicals, at home stretching exercise for longer than 12 weeks. Patient has been experiencing chronic low back pain for years. Patient has had 3 previous back surgeries. Patient was counseled that if he does get significant relief with his first lumbar medial branch block that we will plan on repeating it with the plan to progress forward to a lumbar RFA at a later date. Patient agrees with this plan of care. Patient will be scheduled for [his] first diagnostic lumbar medial branch block bilaterally L4-L5 and L5-S1 under fluoroscopy. I will also order the patient a compounded cream I did also discuss with the patient in future if with his chronic back history and history of fusions that he may be a beneficial candidate of a intrathecal pump trial. We will continue to monitor this in future. Patient has been instructed to contact the clinic with any concerns before the next appointment. Dr. Joy has reviewed this note and agrees with this plan of care. This note was dictated using voice recognition software and make contain errors or omissions. All injections are used with Lidocaine, Bupivacaine and dexamethasone unless diagnostic in which there is no steroids injected. Occasionally urine drug screen is needed to verify patient's compliance with our office pain contract. This is ordered based off specific treatments related to chronic pain with the potential to abuse certain medications.
== END 2025-05-16 23:59 | disposition home or self-care (01) ==
LOC: SC.PAIN 08:52
PROVIDERS: PCP Internal Medicine Adolescent Medicine; Visit Provider Nurse Practitioner Family
DX: M51.360 Other intervertebral disc degeneration, lumbar region with discogenic back pain only (principal); G89.29 Other chronic pain; M47.816 Spondylosis without myelopathy or radiculopathy, lumbar region; Z98.1 Arthrodesis status; Z79.899 Other long term (current) drug therapy; Z79.891 Long term (current) use of opiate analgesic
CPT/HCPCS: 99202; G0463

== ENCOUNTER 2025-05-17 12:50 | Outpatient (CLI) | payer MEDICARE, BC, SELFPAY ==
--- OUTSIDE RECORDS SUMMARY | 2025-05-17 12:52 | XMS_ITS | Encounter Summary ---
Author Organization [employer] Address [address] [place] [address] Care Team Providers Care Chiller Operator Name Role Phone Harris Quinn MD Primary Care Provider + [phone] Jackie Prado INSULATION WORKER INTERIOR SURFACE Unavailable + [phone] Encounter Details Date Type Department Care Team (Late st Contact Info) Description 09/27/2020 Transcribed Document [facility] Family Medicine [address] [place] [address] ProviderJerrica MD [address] [place] [address] Social History Tobacco Use Types Packs/Day Years Used Date Smoking Tobacco: Never Assessed Sex and Gender Information Value Date Recorded Sex Assigned at Male 06/20/2024 10:08 AM CDT Legal Sex Male 7:36 AM VOCATIONAL TRAINING DIRECTOR Gender Identity Male 06/20/2024 10:08 AM CDT Sexual Orientation Not on file documented as of this encounter Miscellaneous Notes * [employer]ner Conversion Note - Historical ProviderMD - 09/27/2020 5:07 PM VOCATIONAL TRAINING DIRECTOR Meds to Bed Enrollment Entered On: 09/29/2020 7:14 EST Performed On: 09/27/2020 17:07 EST by Magnus Ash SHAPER SET UP OPERATOR LEAD Meds to Bed Enrollment Patient Enrollment Decision: : Yes/enroll in meds to bed program Magnus Ash PHARMACY TECH LEAD - 09/29/2020 7:14 EST documented in this encounter Plan of Treatment Not on file documented as of this encounter Visit Diagnoses Not on filedocumented in this encounter Care Teams Chiller Operator Relationship Specialty Start Date End Date Harris Quinn MD [address] [place] [facility] [address] [place] [address] PCP - General Adolescent Medicine 01/12/24 Jackie Prado, INSULATION WORKER INTERIOR SURFACE [address] [place] [facility] [address], [place] [address] Referring Physician Nurse Practitioner 01/12/24 documented as of this encounter
--- OUTSIDE RECORDS SUMMARY | 2025-05-17 12:53 | XMS_ITS | Encounter Summary ---
Author Organization [employer] Address [address] [place] [address] Care Team Providers Care Petroleum Inspector Name Role Phone Harris Quinn MD Primary Care Provider + [phone] Jackie Prado HAIR DRESSER Unavailable + [phone] Encounter Details Date Type Department Care Team (Late st Contact Info) Description 09/28/2020 Transcribed Document [facility] Family Medicine [address] [place] [address] ProviderJerrica MD [address] [place] [address] Social History Tobacco Use Types Packs/Day Years Used Date Smoking Tobacco: Never Assessed Sex and Gender Information Value Date Recorded Sex Assigned at Male 06/20/2024 10:08 AM CDT Legal Sex Male 7:36 AM ASSOCIATE MANAGER AFFILIATE MARKETING Gender Identity Male 06/20/2024 10:08 AM CDT Sexual Orientation Not on file documented as of this encounter Miscellaneous Notes * Cerner Conversion Note - Historical ProviderMD - 09/28/2020 11:19 AM ASSOCIATE MANAGER AFFILIATE MARKETING Therapy Screen, OT Entered On: 09/28/2020 13:25 EST Performed On: 09/28/2020 11:19 EST by JAYNE MENDOZA OTR/[place]ien Therapy Screen, OT Medical Chart Reviewed : Yes Person Providing Information : Nurse, Patient Screen Completed : Yes Therapy Screen Findings, OT : Patient with recent functional decline Additional Therapy Screen Comment : Pt reported his RLE pain has improved since admission. Pt and RN Galindo report pt has been up in room, performing ADL I'ly. Sx planned, possibly Tues. Pt agreed w/ decision to hold OT eval until after sx. OT will screen this order. REJI JAYNE, OTR/L - 09/28/2020 13:24 EST documented in this encounter Plan of Treatment Not on file documented as of this encounter Visit Diagnoses Not on filedocumented in this encounter Care Teams Petroleum Inspector Relationship Specialty Start Date End Date Harris Quinn MD [address] [place] [facility] [address] [place] [address] PCP - General Adolescent Medicine 01/12/24 Jackie Prado, HAIR DRESSER [address] [facility] [address], [place] [address] Referring Physician Nurse Practitioner 01/12/24 documented as of this encounter
--- OUTSIDE RECORDS SUMMARY | 2025-05-17 12:53 | XMS_ITS | Encounter Summary ---
Author Organization [employer] Address [address] [place] [address] Care Team Providers Care Armor Senior Sergeant Name Role Phone Harris Quinn MD Primary Care Provider + [phone] Jackie Prado RESIDENTIAL TEAM LEADER Unavailable + [phone] Encounter Details Date Type Department Care Team (Late st Contact Info) Description 10/01/2020 Transcribed Document [facility] Family Medicine [address] [place] [address] ProviderJerrica MD [address] [place] [address] Social History Tobacco Use Types Packs/Day Years Used Date Smoking Tobacco: Never Assessed Sex and Gender Information Value Date Recorded Sex Assigned at Male 06/20/2024 10:08 AM CDT Legal Sex Male 7:36 AM PER DIEM INTERPRETER Gender Identity Male 06/20/2024 10:08 AM CDT Sexual Orientation Not on file documented as of this encounter Miscellaneous Notes * Cerner Conversion Note - Historical ProviderMD - 10/01/2020 6:00 PM PER DIEM INTERPRETER Pain Assessment Entered On: 10/02/2020 3:37 EST Performed On: 10/01/2020 19:35 EST by Armando Armenta Rn Intervention Information: acetaminophen Performed by Jessica Boyer RN on 10/01/2020 18:35:00 EST acetaminophen,650mg Oral Pain Assessment Pain Scale Goal : 2 Armando Armenta Rn - 10/02/2020 3:37 EST Electronically signed by [facility] Conversion Teletypesetter Monitor [employer]ner at 03/08/2023 11:50 PM CDT documented in this encounter Plan of Treatment Not on file documented as of this encounter Visit Diagnoses Not on filedocumented in this encounter Care Teams Armor Senior Sergeant Relationship Specialty Start Date End Date Harris Quinn MD [address] [place] [facility] [address] [place] [address] PCP - General Adolescent Medicine 01/12/24 Jackie Prado, RESIDENTIAL TEAM LEADER [address] [place] [facility] [address], [place] [address] Referring Physician Nurse Practitioner 01/12/24 documented as of this encounter
--- OUTSIDE RECORDS SUMMARY | 2025-05-17 12:53 | XMS_ITS | Encounter Summary ---
Author Organization [employer] Address [address] [place] [address] Care Team Providers Care Radiation Therapy Technician Name Role Phone Harris Quinn MD Primary Care Provider + [phone] Jackie Prado NUTRITION COUNSELOR Unavailable + [phone] Encounter Details Date Type Department Care Team (Late st Contact Info) Description 10/02/2020 Transcribed Document [facility] [address] [place] [address] Stu Liang MD [address] [place] [address] [address] [place] [address] Social History Tobacco Use Types Packs/Day Years Used Date Smoking Tobacco: Never Assessed Sex and Gender Information Value Date Recorded Sex Assigned at Male 06/20/2024 10:08 AM CDT 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 Harris Quinn DOA: 09/27/2020 DOD: HPI: Admitted with back pain and right radiculopathy CODE STATUS: Full code CONSULTS: Neurosurgery WORKUP / PROCEDURES: MRI Spine Lumbar WO W (09/27/2020 18:49) Result: MRI LUMBAR SPINE WITHOUT CONTRASTHISTORY: Severe low back pain with right leg pain, history of lumbarsurgery TECHNIQUE: Multiplanar, multisequence images of the lumbar spine wereperformed without contrast administration. Repeat T1 weighted imageswere performed with 15 mL of Dotarem gadolinium intravenously.FINDINGS: There is leftward curvature of the lumbar spine centered atthe L3 level. There is old mild anterior wedging of T12. The vertebralbodies are otherwise normal in height. There are postoperative changeswith discectomy and cage placement L4-L5. There are laminectomies at L4and L5. The STIR sequences demonstrate no bone marrow edema. There isdiffuse disc desiccation and degeneration throughout the vertebraldiscs. The conus medullaris has normal contour and normal signal withnormal termination at T12-L1. There is no abnormal contrast enhancement.T12-L1: There is mild annular bulging with slight asymmetry to the left.There is no canal stenosis. There is moderate inferior foraminalnarrowing.L1-L2: There is mild concentric annular bulge and mild facethypertrophy. There is no canal stenosis. There is mild inferiorforaminal narrowing without nerve root compression.L2-L3: There is moderate annular bulging with asymmetry to the right.There is moderate facet and mild ligamentum flavum hypertrophy. Thiscauses right lateral recess and moderate right foraminal stenosis. Thereis contact of the exiting L2 nerve root. There is contact of the [id number] root in the lateral recess.L3-L4: There is a large annular bulge. There is moderate to severe facethypertrophy with moderate central canal narrowing. There is flatteningof the right aspect of the thecal sac. There is right lateral recessstenosis. There is severe bilateral foraminal stenosis with compressionof the exiting L3 nerve roots.L4-L5: Postoperative changes at this level. There is no discabnormality. There is moderate facet hypertrophy. There is minimalinferior foraminal narrowing with no nerve root compression.L5-S1: There is a large concentric annular bulge. There is moderatefacet hypertrophy. There is a focal right paracentral protrusion causingright lateral recess stenosis. This contacts and displaces the right [id number] root. There is mild right foraminal narrowing. There is moderateleft foraminal stenosis with compression of the exiting left L5 nerveroot.IMPRESSION:1. Postoperative changes from discectomy, cage placement, andlaminectomies at L4-L5.2. No acute bony abnormalities with no abnormal enhancement.3. Diffuse degenerative disc changes with annular bulging and posteriorelement hypertrophy. There is multilevel canal and foraminal stenosis.4. There is severe bilateral foraminal stenosis and right lateral recessstenosis at L3-L4. There is severe right lateral recess stenosis atL5-S1 and moderate left foraminal stenosis at L5-S1.Images reviewed, interpreted, and dictated by Jaquan Carey MD Operative Report DATE OF PROCEDURE: 09/30/2020 SURGEON: John Cerda MD PRIMARY CARE PHYSICIAN: Harris Quinn. PREOPERATIVE DIAGNOSES: 1. Previous L4-5 fusion. 2. L2 through S1 instability and stenosis. POSTOPERATIVE DIAGNOSES: 1. Previous L4-5 fusion. 2. L2 through S1 instability and stenosis. INDICATION FOR PROCEDURE: Mr. Kay is a 65-year-old gentleman who was admitted over the weekend with intractable back and posterior right leg pain. An MRI was performed, which showed multilevel stenosis both above and below his previous fusion. Due to the severity of his pain, we elected to proceed with surgical intervention. The risks and benefits of the surgery were explained in detail. He voiced good understanding and wished to proceed. PROCEDURES: 1. L2-3, L3-4, and L5-S1 posterior laminectomy. 2. L2-3 and L3-4 posterior lumbar interbody fusion. 3. Bilateral pelvic fixation. 4. L2-3 iliac posterior instrumentation. 5. L2 through S1 posterolateral fusion. 6. Intraoperative CT scan with stereotactic navigation. HOSPITAL FOLLOWUP: 09/28/2020 Patient seen and examined, chart and H&P reviewed. Consults noted. Lab and scans reviewed. Patient is resting in bed, looks comfortable. He says that his right lower extremity pain is better. He denies any bowel or bladder symptoms. He denies any tingling or weakness. 09/29/2020 Patient is resting, complaining of right lower extremity pain and got a morphine shot this morning. Surgery plan is a still pending and neurosurgery following. He is afebrile. No chest pain or shortness of breath noted. 09/30/2020 Patient is awake alert and feeling better. Pain better than yesterday. Plan for surgery noted for today. 10/01/2020 Patient underwent back surgery as outlined above. Today he is complaining of leg bit of headache. He has not started the physical therapy. Overall feeling better, pain is improving. 10/02/2020 Patient is awake alert and responsive. No chest pain or shortness of breath. Discussed with the neurosurgery. They are planning to remove the drain today. Continue to monitor with PT and OT. Hopefully DC tomorrow. Health Status Allergies: Allergic Reactions (Selected) No Known Allergies Current medications: (Selected) Inpatient Medications Ordered Dilaudid: 0.25 mg, IV Push, Q1H, PRN: Pain (Moderate 4-6) Dilaudid: 0.5 mg, IV Push, Q1H, PRN: Pain (Moderate 4-6) Dulcolax Laxative: 10 mg, Oral, BID, PRN: Constipation Dulcolax Laxative: 10 mg, Rectal, BID, PRN: Constipation Fleet Enema: 133 mL, Rectal, Daily, PRN: Constipation Flexeril: 10 mg, Oral, TID, PRN: Spasms Lactated Ringers Injection intravenous solution 1,000 mL: 125 mL/Hr, IntraVENous Lipitor: 40 mg, Oral, Daily Lovenox: 70 mg, SubCutaneous, [id number] MiraLax: 17 Gram, Oral, Daily, PRN: Constipation Tylenol: 650 mg, Oral, Q4H Valium: 5 mg, Oral, Q8H, PRN: Muscle Spasms Zebeta: 10 mg, Oral, Daily Zofran: 4 mg, IV Push, Q4H, PRN: Nausea amLODIPine: 5 mg, Oral, Daily aspirin: 81 mg, Oral, Daily cloNIDine: 0.1 mg, Oral, Q6H, PRN: Hypertension dexAMETHasone: 2 mg, IV Push, Q8H docusate sodium: 200 mg, Oral, BID gabapentin: 300 mg, Oral, At Bedtime hydroCHLOROthiazide: 6.25 mg, Oral, Daily ketotifen ophthalmic: 1 Drop, Eyes Both, BID, PRN: Allergies morphine: 2 mg, IV Push, Q2H, PRN: Pain (Severe 7-10) oxyCODONE: 10 mg, Oral, Q4H, PRN: Pain (Moderate 4-6) oxyCODONE: 5 mg, Oral, Q4H, PRN: Pain (Mild 1-3) Prescriptions Prescribed Percocet 7.5/325 oral tablet: 1 Tab, Oral, Q4H, PRN: for pain, 50 Tab, 0 Refill(s) cyclobenzaprine 10 mg oral tablet: 1 Tab, Oral, TID, PRN: as needed for spasm, 30 Tab, 1 Refill(s) Documented Medications Documented Fish Oil 1000 mg oral capsule: 1 Cap, Oral, Daily, 0 Refill(s) acetaminophen-HYDROcodone 325 mg-10 mg oral tablet: 1 Tab, Oral, QID, PRN: for pain, 0 Refill(s) amLODIPine 5 mg oral tablet: 1 Tab, Oral, Daily, 0 Refill(s) aspirin 81 mg oral delayed release tablet: 1 Tab, Oral, Daily, 30 Tab, 0 Refill(s) atorvastatin 80 mg oral tablet: 0.5 Tab, Oral, At Bedtime, 0 Refill(s) bisoprolol-hydroCHLOROthiazide 10 mg-6.25 mg oral tablet: 1 Tab, Oral, Daily, 0 Refill(s) diclofenac sodium 75 mg oral delayed release tablet: 1 Tab, Oral, BID, 0 Refill(s) gabapentin 300 mg oral capsule: 1 Cap, Oral, At Bedtime, 0 Refill(s) olopatadine 0.1% ophthalmic solution: 1 Drop, Eyes Both, BID, PRN: Allergies, 0 Refill(s), Home Medications (11) Active acetaminophen-HYDROcodone 325 mg-10 mg oral tablet 1 Tab, PRN, Oral, QID amLODIPine 5 mg oral tablet 5 mg = 1 Tab, Oral, Daily aspirin 81 mg oral delayed release tablet 81 mg = 1 Tab, Oral, Daily atorvastatin 80 mg oral tablet 40 mg = 0.5 Tab, Oral, At Bedtime bisoprolol-hydroCHLOROthiazide 10 mg-6.25 mg oral tablet 1 Tab, Oral, Daily cyclobenzaprine 10 mg oral tablet 10 mg = 1 Tab, PRN, Oral, TID diclofenac sodium 75 mg oral delayed release tablet 75 mg = 1 Tab, Oral, BID Fish Oil 1000 mg oral capsule 1,000 mg = 1 Cap, Oral, Daily gabapentin 300 mg oral capsule 300 mg = 1 Cap, Oral, At Bedtime olopatadine 0.1% ophthalmic solution 1 Drop, PRN, Eyes Both, BID Percocet 7.5/325 oral tablet 1 Tab, PRN, Oral, Q4H Problem list: Active Problems (11) Arthritis At risk for sleep apnea Back pain Deep vein thrombosis Deviated septum GERD - Gastro-esophageal reflux disease Hiatal hernia High blood pressure Hyperlipidemia Murmur Restless legs syndrome Objective VS/Measurements Vitals Signs (last 24 hrs) Last Charted Minimum Maximum Temp 98.3 (OCT 02:) 97.9 (OCT 01 22:30) 98.2 (OCT 01:) Mon HR 65 (OCT 02:) 65 (OCT 02:) 79 (OCT 02:49) Resp Rate 18 (OCT 02:) 16 (OCT 01:51) 19 (OCT 01 22:30) SBP H 147 (OCT 02:) 128 (OCT 02:49) H 156 (OCT 01:) DBP L 48 (OCT 02:) L 44 (OCT 01:) 67 (OCT 01:51) MAP 69 (OCT 02:) 66 (OCT 01:) 90 (OCT 01:) SpO2 95 (OCT 02:) 94 (OCT 01:) 98 (OCT 01:) General: Alert and oriented, No acute distress. Eye: Pupils are equal, round and reactive to light, Extraocular movements are intact, Normal conjunctiva. HENT: Normocephalic, Oral mucosa is moist. Neck: Supple, Non-tender, No carotid bruit. Respiratory: Lungs are clear to auscultation, Respirations are non-labored, Breath sounds are equal. Cardiovascular: Normal rate, Regular rhythm. Gastrointestinal: Soft, Non-tender, Normal bowel sounds. Genitourinary: No costovertebral angle tenderness. Integumentary: Warm. Neurologic: Alert, Oriented, Normal motor function, No focal deficits. Psychiatric: Cooperative. Results Review Radiology Results (Last 48 hours) [id number] -- 09/29/2020 14:[address] in OR (09/30/2020 19:28) Result: CT SPINE LUMBAR IN THE ORINDICATION: Intraoperative exam. Back pain.TECHNIQUE: Thin section axial images were obtained through the lumbarspine with the patient in prone position. This was obtained in theoperating room to assist with surgical planning.COMPARISON: None.FINDINGS: There is a large posterior soft tissue defect. There arechanges from posterior lumbar fusion. Multilevel degenerative disease ispresent. Limited evaluation of the abdomen is unremarkable. There is anelongated nodular density at the right lung base probably representingatelectasis.IMPRESSION: Intraoperative exam during lumbar spine surgery. Please seethe operative report for further details.Images reviewed, interpreted, and dictated by Dr. Julio Craig.Transcribed by Carmelo Fontenot PA-C.I have personally viewed, interpreted and dictated the examination. Ihave read and agree with the above final transcribed report. OCT 02 03:15 \ L 9.1 / H 10.2 221 / L 29.5 \ Impression and Plan Assessment and Plan: Diagnosis. DIAGNOSIS: Acute back pain with right radiculopathy, MRI abnormality is noted. S/p lumbar laminectomies and fusion surgery as outlined above on 09/30/2020. Degenerative disc disease and has had 2 back surgeries. Acute right lower extremity DVT as per outlying venous Doppler and documented in H&P. Patient was on subcu Lovenox which is changed to subcu heparin for now. Will restart full dose of Lovenox when okay with neurosurgery Leukocytosis, likely due to steroid use. Essential hypertension / Hyperlipidemia Osteoarthritis History of some kind of cardiac valve surgery in childhood PLAN Continue with Lovenox for DVT treatment, if okay with neurosurgery Tapering off IV steroid and postoperative pain management per neurosurgery Follow with neurosurgery recommendations for post surgery care. PT and OT Follow labs and electrolytes as needed. Discussed with the patient and nursing staff this morning. documented in this encounter Plan of Treatment Not on file documented as of this encounter Visit Diagnoses Not on filedocumented in this encounter Care Teams Radiation Therapy Technician Relationship Specialty Start Date End Date Harris Quinn MD [address] [place] [address] PCP - General Adolescent Medicine 01/12/24 McNees, Jackie S Medrano, NUTRITION COUNSELOR [address], [facility] [address], [place] [id number] Referring Physician Nurse Practitioner 01/12/24 documented as of this encounter
--- OUTSIDE RECORDS SUMMARY | 2025-05-17 12:53 | XMS_ITS | Encounter Summary ---
Author Organization [employer] Address [address] [place] [address] Care Team Providers Care Workforce Analyst Name Role Phone Harris Quinn MD Primary Care Provider + [phone] Jackie Prado STORAGE BRINE WORKER Unavailable + [phone] Encounter Details Date Type Department Care Team (Late st Contact Info) Description 10/01/2020 Transcribed Document [facility] [place] [address] [place] [address] ProviderJerrica MD [address] [place] [address] Social History Tobacco Use Types Packs/Day Years Used Date Smoking Tobacco: Never Assessed Sex and Gender Information Value Date Recorded Sex Assigned at Male 06/20/2024 10:08 AM CDT 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 Gender Identity Male 06/20/2024 10:08 AM CDT Sexual Orientation Not on file documented as of this encounter Miscellaneous Notes * Cerner Conversion Note - Historical ProviderMD - 10/01/2020 11:40 AM TRAFFIC ENGINEERING DIRECTOR Treatment Intervention, OT Entered On: 10/02/2020 14:36 EST Performed On: 10/02/2020 13:25 EST by CHRISTIAN FONTANEZ OTR/Sebastien General Information, OT Visit Type, OT : Treatment Note Patient Orders : Order Date Order Ordering 09/27/2020 17:26 OT Evaluation and Treatment Ordered By: KATERINE CHUNG MD-INT 09/30/2020 20:15 Occupational Therapy Evaluation and Treatme Ordered By: TROY MCCLURE MD-SNU 10/01/2020 11:40 OT Additional Treatment Ordered By: Active Diagnoses : 09/27/2020 12:00 Pain, unspecified Therapy Diagnosis, OT : decreased independence with ADLs due to weakness Admission Date : 09/29/2020 14:34 Co-treated by, OT : Physical Therapist Personal Devices : Personal Devices No Devices Recorded Assistive Devices : Assistive Devices No Devices Recorded Precautions in Place : Log roll precautions, Other: Headache precautions CHRISTIAN FONTANEZ OTR/Sebastien - 10/02/2020 14:34 EST General Status Patient Received Status : Other: ambulating in hallway with PT Treatment Start Time : 10/02/2020 13:15 EST Patient Left Status : Up in chair, RN/PCT informed, All needs met and within reach Treatment End Time : 10/02/2020 13:25 EST Treatment Time : 10 Minute(s) CHRISTIAN FONTANEZ OTR/Sebastien - 10/02/2020 14:34 EST Self Care/Home Management, OT Lower Body Dressing Assist Level, OT : Supervision or set-up CHRISTIAN FONTANEZ OTR/Sebastien - 10/02/2020 14:34 EST Functional Mobility Mobility Grid Sit to Stand : Supervision/set-up Bed to Chair : Supervision/set-up Stand to Sit : Supervision/set-up CHRISTIAN FONTANEZ OTR/Sebastien - 10/02/2020 14:34 EST Plan of Care, OT OT Tx Plan/Goals Established w Patient : Yes CHRISTIAN FONTANEZ OTR/L - 10/02/2020 14:34 EST Usp Goals, OT Grooming LTG Grid Goal #1 Activity : Grooming Assist : Independent, modified Date to Meet : 10/15/2020 EST Goal Status : Initial goal CHRISTIAN FONTANEZ OTR/Sebastien - 10/02/2020 14:34 EST Bathing LTG Grid Goal #1 Activity : Bathing Assist : Independent, modified Date to Meet : 10/15/2020 EST Goal Status : Initial goal CHRISTIAN FONTANEZ OTR/Sebastien - 10/02/2020 14:34 EST Dressing, Lower Body LTG Grid Goal #1 Activity : Dressing, Lower Body Assist : Independent, modified Date to Meet : 10/15/2020 EST Goal Status : Initial goal CHRISTIAN FONTANEZ OTR/Sebastien - 10/02/2020 14:34 EST Toileting LTG Grid Goal #1 Activity : Toileting Assist : Independent, modified Date to Meet : 10/15/2020 EST Goal Status : Initial goal CHRISTIAN FONTANEZ OTR/L - 10/02/2020 14:34 EST Toilet Transfer LTG Grid Goal #1 Activity : Toilet Transfer, Ambulatory Assist : Independent, modified Date to Meet : 10/15/2020 EST Goal Status : Initial goal CHRISTIAN FONTANEZ OTR/L - 10/02/2020 14:34 EST Bed Mobility/ Bed Transfer LTG Grid Goal #1 Activity : Bed Mobility/Bed Transfer Assist : Independent, modified Date to Meet : 10/15/2020 EST Goal Status : Initial goal CHRISTIAN FONTANEZ OTR/L - 10/02/2020 14:34 EST Treatment Note Subjective Comment : Pt agreeable Patient's Response to Treatment : Pt tolerated tx well Additional Objective Information : Pt ambuating with PT upon arrival. Pt educated on use of AE for LB ADLs, pt verbalized and demo understanding of use. Pt left in chiar with needs met and CL in reach. Assessment : Pt progressing Plan for Treatment : Cont OT POC CHRISTIAN FONTANEZ OTR/L - 10/02/2020 14:34 EST Pain Assessment Pain Score Pre-Intervention : 4 HUSEYIN CHRISTIAN OTR/L - 10/02/2020 14:34 EST Image 1 - Images currently included in the form version of this document have not been included in the text rendition version of the form. [facility] OT Charges OT Selfcare/Hm Mgmt Ea 15 Min : 1 HUSEYIN CHRISTIAN OTR/L - 10/02/2020 14:34 EST documented in this encounter Plan of Treatment Not on file documented as of this encounter Visit Diagnoses Not on filedocumented in this encounter Care Teams Workforce Analyst Relationship Specialty Start Date End Date Harris Quinn MD [address] [place] [address] PCP - General Adolescent Medicine 01/12/24 Jackie Prado, STORAGE BRINE WORKER [address], [place] [address] Referring Physician Nurse Practitioner 01/12/24 documented as of this encounter
--- OUTSIDE RECORDS SUMMARY | 2025-05-17 12:53 | XMS_ITS | Encounter Summary ---
Author Organization [employer] Address [address] [place] [address] Care Team Providers Care Public School Teacher Name Role Phone Harris Quinn MD Primary Care Provider + [phone] Jackie Prado PHYSICAL ANTHROPOLOGIST Unavailable + [phone] Encounter Details Date Type Department Care Team (Late st Contact Info) Description 10/02/2020 Transcribed Document [facility] [place] Family Medicine [address] [place] [address] ProviderJerrica MD [address] [place] [address] Social History Tobacco Use Types Packs/Day Years Used Date Smoking Tobacco: Never Assessed Sex and Gender Information Value Date Recorded Sex Assigned at Male 06/20/2024 10:08 AM CDT 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 Conversion Spring Production Supervisor Cerner at 03/08/2023 11:35 PM CDT documented in this encounter Plan of Treatment Not on file documented as of this encounter Visit Diagnoses Not on filedocumented in this encounter Care Teams Public School Teacher Relationship Specialty Start Date End Date Harris Quinn MD [address] [facility] [address] [place] [address] PCP - General Adolescent Medicine 01/12/24 Jackie Prado, PHYSICAL ANTHROPOLOGIST [address] [facility] [address], [place] [address] Referring Physician Nurse Practitioner 01/12/24 documented as of this encounter
--- OUTSIDE RECORDS SUMMARY | 2025-05-17 12:53 | XMS_ITS | Encounter Summary ---
Author Organization [employer] Address [address] [place] [address] Care Team Providers Care Biofuels Research Scientist Name Role Phone Harris Quinn MD Primary Care Provider + [phone] Jackie Prado DUST BRUSH ASSEMBLER Unavailable + [phone] Encounter Details Date Type Department Care Team (Late st Contact Info) Description 10/01/2020 Transcribed Document [facility] [place] Family Medicine [address] [place] [address] ProviderJerrica MD [address] [place] [address] Social History Tobacco Use Types Packs/Day Years Used Date Smoking Tobacco: Never Assessed Sex and Gender Information Value Date Recorded Sex Assigned at Male 06/20/2024 10:08 AM CDT Legal Sex Male 7:36 AM PRINT PRODUCTION MANAGER Gender Identity Male 06/20/2024 10:08 AM CDT Sexual Orientation Not on file documented as of this encounter Miscellaneous Notes * Cerner Conversion Note - Historical ProviderMD - 10/01/2020 11:39 AM PRINT PRODUCTION MANAGER Treatment Intervention, PT Entered On: 10/02/2020 15:18 EST Performed On: 10/02/2020 15:01 EST by MARY BURKETT, Student-Physical Therapist General Information, PT Visit Type, PT : Treatment Note Patient Orders : Order Date Order Ordering 09/27/2020 17:26 PT Evaluation and Treatment Ordered By: KATERINE CHUNG MD-INT 09/30/2020 20:15 Physical Therapy Eval and Treat Ordered By: TROY MCCLURE MD-SNU 10/01/2020 11:39 Physical Therapy Additional Tx Ordered By: ANGÉLICA LARSEN, PT Active Diagnoses : 09/27/2020 12:00 Pain, unspecified Therapy Diagnosis, PT : decreased endurance and loss independent mobility after back sx Onset of Problem, PT : 09/29/2020 EST Admission Date : 09/29/2020 14:34 Personal Devices : Personal Devices No Devices Recorded Assistive Devices : Assistive Devices No Devices Recorded Precautions in Place : Log roll precautions, Other: Headache precautions MARY BURKETT Student-Physical Therapist - 10/02/2020 15:01 EST General Status Patient Received Status : Up in chair, Other: Back brace donned Treatment Start Time : 10/02/2020 13:05 EST Patient Left Status : Up in chair, Communication board completed, All needs met and within reach, Other: Back brace donned RN/PCT Informed Comment : Nsg. Crouch approved treatment. Treatment End Time : 10/02/2020 13:31 EST Treatment Time : 26 Minute(s) Actual Treatment Time : 26 Minute(s) MARY BURKETT Student-Physical Therapist - 10/02/2020 15:01 EST Intervention Summary O2 Pre-Intervention : Room air O2 During Intervention : Room air O2 Post-Intervention : Room air MARY BURKETT Student-Physical Therapist - 10/02/2020 15:01 EST Therapeutic Exercises Therapeutic Exercise Comment, PT : Ther ex: LAQ x20 Marching x20 MARY BURKETT Student-Physical Therapist - 10/02/2020 15:01 EST Functional Mobility Mobility Grid Sit to Stand : Supervision/set-up Stand to Sit : Supervision/set-up MARY BURKETT Student-Physical Therapist - 10/02/2020 15:01 EST Sit to Stand Device : Belt, gait Stand to Sit Device : Belt, gait MARY BURKETT Student-Physical Therapist - 10/02/2020 15:01 EST Gait Training/Assessment, PT Weight Bearing Status Maintained : Yes Weight Bearing Status : Full Gait Assistance Level : Supervision Walking Distance : 280' with back brace donned MARY BURKETT Student-Physical Therapist - 10/02/2020 15:01 EST Ambulatory Devices : None, Gait belt ILV RICHARDSON, PT - 10/02/2020 15:19 EST Cognitive Treatment, PT Orientation : Oriented x 4 MARY BURKETT Student-Physical Therapist - 10/02/2020 15:01 EST Edu Topics Physical Therapy Education Grid Gait Training : Verbalizes understanding, Returns demonstration, Needs further teaching Role of Physical Therapy : Verbalizes understanding Safety : Verbalizes understanding Stair Training : Verbalizes understanding, Returns demonstration, Needs further teaching Therapeutic Exercises : Verbalizes understanding, Returns demonstration, Needs further teaching Transfer Training : Verbalizes understanding, Returns demonstration MARY BURKETT Student-Physical Therapist - 10/02/2020 15:01 EST Indication Assesessment, PT Physical Therapy Indicated : Yes Potential Barriers To Therapy : None evident Rehabilitation Potential : Good MARY BURKETT Student-Physical Therapist - 10/02/2020 15:01 EST Plan of Care, PT PT Tx Plan/Goals Established w Patient : Yes MARY BURKETT Student-Physical Therapist - 10/02/2020 15:01 EST Marine Plumber Goals Mobility/Bed Mobility LTG PT Grid Goal #1 Goal #2 Goal #3 Activity : Supine to sit Sit to stand Sit to stand Assist : Independent, modified Independent, modified Supervision or set-up Equipment : Bed, standard Walker, front wheel Belt, gait Date to Meet : 10/15/2020 EST 10/15/2020 EST 10/02/2020 EST Goal Status : Progressing, continue Goal met Goal met Date Met : 10/02/2020 EST MARY BURKETT Student-Physical Therapist - 10/02/2020 15:01 EST MARY BURKETT, Student-Physical Therapist - 10/02/2020 15:01 EST MARY BURKETT, Student-Physical Therapist - 10/02/2020 15:01 EST Transfer LTG Grid Goal #1 Destination : Chair, with arms Assist : Independent, modified Equipment : Walker, front wheel Date to Meet : 10/15/2020 EST Goal Status : Progressing, continue MARY BURKETT Student-Physical Therapist - 10/02/2020 15:01 EST Ambulation LTG Grid Goal #1 Device : Walker, front wheel Distance : 350 ft Assist : Independent, modified Date to Meet : 10/16/2020 EST Goal Status : Progressing, continue MARY BURKETT Student-Physical Therapist - 10/02/2020 15:01 EST Stairs LTG Grid Goal #1 Device : None Number of Steps : 11 Handrail(s) : No handrails Assist : Supervision or set-up Date to Meet : 10/15/2020 EST Goal Status : Goal met Date Met : 10/02/2020 EST MARY BURKETT Student-Physical Therapist - 10/02/2020 15:01 EST Treatment Note Subjective Comment : Pt agreed to treatment. Nsg. Crouch approved treatment. Additional Objective Information : Pt verbalized his BLT percautions. Pt was supervision for sit to stand. Pt ambulated 140' to the gym with supervision and no AD. Pt performed 10 steps without handrails and supervision. Pt ambulated with supervision 140' back to his room w/o AD. Pt perfromed a stand to sit with supervision. Pt performed seated marching and LAQ. BLT precautions were maintained during treatment. MARY BURKETT Student-Physical Therapist - 10/02/2020 15:01 EST Assessment : Pt presented with decreased endurance and slow gait. Pt reported that his quads were a little sore from treatment this morning. Pt requires skilled physical therapy to improve strength and ensure a safe disch home. Plan for Treatment : Cont. PTx. PT has reviewed and agrees with note. LIV RICHARDSON, PT - 10/02/2020 15:19 EST Pain Assessment Pain Scaled Used : 0-10 Pain scale Pain Score Pre-Intervention : 2 Location : Back Pain Improved by : Medication MARY BURKETT Student-Physical Therapist - 10/02/2020 15:01 EST Image 1 - Images currently included in the form version of this document have not been included in the text rendition version of the form. Anticipated Discharge Needs, OT/PT Anticipated Discharge to : Home, with home health (Comment: S1 [LIV RICHARDSON, PT - 10/02/2020 15:19 EST] ) LIV RICHARDSON, PT - 10/02/2020 15:19 EST Anticipated Home Equipment : Belt, gait, Walker Recommend Continued Therapy at Discharge : Yes MARY BURKETT Student-Physical Therapist - 10/02/2020 15:01 EST [place] [facility] Charges PT Therap. Exercise 15 min : 1 Gait Training Each 15 Min : 1 MARY BURKETT Student-Physical Therapist - 10/02/2020 15:01 EST Electronically signed by [facility] Conversion Branch Lending Officer Cerner at 03/11/2023 9:23 AM CDT documented in this encounter Plan of Treatment Not on file documented as of this encounter Visit Diagnoses Not on filedocumented in this encounter Care Teams Biofuels Research Scientist Relationship Specialty Start Date End Date Harris Quinn MD [address] [place] [facility] [address] [place] [address] PCP - General Adolescent Medicine 01/12/24 Jackie Prado, DUST BRUSH ASSEMBLER [address] [place] [address], [place] [address] Referring Physician Nurse Practitioner 01/12/24 documented as of this encounter
--- OUTSIDE RECORDS SUMMARY | 2025-05-17 12:53 | XMS_ITS | Encounter Summary ---
Author Organization [employer] Address [address] [place] [address] Care Team Providers Care Cardiology Technologist Name Role Phone Harris Quinn MD Primary Care Provider + [phone] Jackie Prado PUBLICATIONS PRODUCTION SUPERVISOR Unavailable + [phone] Encounter Details Date Type Department Care Team (Late st Contact Info) Description 10/02/2020 Transcribed Document [facility] [place] Medicine [address] [place] [address] ProviderJerrica MD [address] [place] [address] Social History Tobacco Use Types Packs/Day Years Used Date Smoking Tobacco: Never Assessed Sex and Gender Information Value Date Recorded Sex Assigned at Male 06/20/2024 10:08 AM CDT Legal Sex Male 7:36 AM DENTAL SCHEDULER Gender Identity Male 06/20/2024 10:08 AM CDT Sexual Orientation Not on file documented as of this encounter Miscellaneous Notes * Cerner Conversion Note - Historical ProviderMD - 10/02/2020 10:00 AM DENTAL SCHEDULER Pain Assessment Entered On: 10/02/2020 13:20 EST Performed On: 10/02/2020 12:12 EST by Miko Perdomo RN Intervention Information: acetaminophen Performed by Miko Perdomo RN on 10/02/2020 11:12:00 EST acetaminophen,650mg Oral Pain Assessment Pain Scale Goal : 2 Miko Perdomo RN - 10/02/2020 13:20 EST Electronically signed by Bailey [facility] Conversion Electrical Instrument Maker Cerner at 03/08/2023 11:34 PM CDT documented in this encounter Plan of Treatment Not on file documented as of this encounter Visit Diagnoses Not on filedocumented in this encounter Care Teams Cardiology Technologist Relationship Specialty Start Date End Date Harris Quinn MD [address] [place] [facility] [address] [place] [address] PCP - General Adolescent Medicine 01/12/24 Jackie Prado, PUBLICATIONS PRODUCTION SUPERVISOR [address] [place] [facility] [address], [place] [address] Referring Physician Nurse Practitioner 01/12/24 documented as of this encounter
--- OUTSIDE RECORDS SUMMARY | 2025-05-17 12:53 | XMS_ITS | Encounter Summary ---
Author Organization [employer] Address [address] [place] [address] Care Team Providers Care Replenishment Merchandising Associate Name Role Phone Harris Quinn MD Primary Care Provider + [phone] Jackie Prado FEATHER STITCHER Unavailable + [phone] Encounter Details Date Type Department Care Team (Late st Contact Info) Description 10/01/2020 Transcribed Document [facility] [address] [address] John Cerda MD [address] [place] [address] Social History Tobacco Use Types Packs/Day Years Used Date Smoking Tobacco: Never Assessed Sex and Gender Information Value Date Recorded Sex Assigned at Male 06/20/2024 10:08 AM CDT 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 Incisional back pain. No headache. Objective VS/Measurements Vitals Signs (last 24 hrs) Last Charted Minimum Maximum Temp 97.7 (OCT 01:) 97.7 (OCT 01:) 98.6 (SEP 30:08) Mon HR 66 (OCT 01 06:15) 56 (SEP 30 10:29) 85 (SEP 30 20:08) Periph HR 49 (SEP 30 15:02) 49 (SEP 30 15:02) 49 (SEP 30 15:02) Resp Rate 16 (OCT 01:) 14 (SEP 30 15:02) 18 (SEP 30:17) SBP 121 (OCT 01:) 99 (OCT 01 02:00) H 165 (SEP 30:) DBP L 45 (OCT 01:) L 39 (OCT 01:00) 64 (SEP 30:00) MAP 63 (OCT 01:) 53 (OCT 01 02:00) 92 (SEP 30 21:00) SpO2 97 (OCT 01:) 96 (SEP 30:00) 99 (SEP 30:) AAOx3. Incision clean, dry, and intact. FREDDY with bloody drainage. Moving lower extremities well. Impression and Plan POD 1 L2-iliac fusion. Patient can sit up and participate with PT. If he develops headache while up, lay flat again. Will put FREDDY drain to suction. PT/OT. Will start heparin 500mg Q8H. documented in this encounter Plan of Treatment Not on file documented as of this encounter Visit Diagnoses Not on filedocumented in this encounter Care Teams Replenishment Merchandising Associate Relationship Specialty Start Date End Date Harris Quinn MD [address] [facility] [address] [place] [address] PCP - General Adolescent Medicine 01/12/24 Jackie Prado APRN [address] [place] [address], [place] [address] Referring Physician Nurse Practitioner 01/12/24 documented as of this encounter
--- OUTSIDE RECORDS SUMMARY | 2025-05-17 12:53 | XMS_ITS | Encounter Summary ---
Author Organization [employer] Address [address] [place] [address] Care Team Providers Care Donor Processor Name Role Phone Harris Quinn MD Primary Care Provider + [phone] Jackie Prado MEDICAL INSURANCE BILLER Unavailable + [phone] Encounter Details Date Type Department Care Team (Late st Contact Info) Description 10/01/2020 Transcribed Document [facility] [address] [place] [address] Stu Liang MD [address] [place] [address] [address] [place] [address] Social History Tobacco Use Types Packs/Day Years Used Date Smoking Tobacco: Never Assessed Sex and Gender Information Value Date Recorded Sex Assigned at Male 06/20/2024 10:08 AM CDT Legal Sex Male 7:36 AM BREAD SUPERVISOR Gender Identity Male 06/20/2024 10:08 AM CDT Sexual Orientation Not on file documented as of this encounter Miscellaneous Notes * Cerner Conversion Note - Stu Liang MD - 10/01/2020 11:38 AM EST Patient: ELIZA GUARDADO Age: 65 [...] nerve root. There is contact of the [id number] root in the lateral recess.L3-L4: There is [...] stenosis. This contacts and displaces the right [id number] root. There is mild right foraminal narrowing. [...] therapy. Overall feeling better, pain is improving. Health Status Allergies: Allergic Reactions (Selected) No Known Allergies Current medications: (Selected) Inpatient Medications Ordered Ancef: 2 Gram, 50 mL, 100 mL/Hr, IV Piggyback, Q6HInt Dilaudid: 0.25 mg, IV Push, Q1H, PRN: [...] mL/Hr, IntraVENous Lipitor: 40 mg, Oral, Daily MiraLax: 17 Gram, Oral, Daily, PRN: Constipation Tylenol: 650 mg, Oral, Q4H Valium: 5 mg, Oral, Q8H, PRN: Muscle Spasms Zebeta: 10 mg, Oral, Daily Zofran: 4 mg, IV Push, Q4H, PRN: Nausea amLODIPine: 5 mg, Oral, Daily aspirin: 81 mg, Oral, Daily cloNIDine: 0.1 mg, Oral, Q6H, PRN: Hypertension dexAMETHasone: 4 mg, IV Push, Q8H docusate sodium: 200 mg, Oral, BID gabapentin: 300 mg, Oral, At Bedtime heparin: 5,000 Units, SubCutaneous, Q8H hydroCHLOROthiazide: 6.25 mg, Oral, Daily ketotifen ophthalmic: [...] 98.6 (SEP 30:08) Mon HR 66 (OCT 01:) 62 (SEP 30:) 85 (SEP 30:08) Periph HR 49 (SEP 30 15:) 49 (SEP 30 15:02) 49 (SEP 30 15:02) Resp Rate 16 (OCT 01:) 14 (SEP 30:02) 18 (SEP 30:) SBP 121 (OCT 01:) 99 (OCT 01 02:00) H 165 (SEP 30:) DBP L 45 (OCT 01:) L 39 (OCT 01 02:00) 64 (SEP 30:00) MAP 63 (OCT 01:) 53 (OCT 01 02:00) 92 (SEP 30:00) SpO2 97 (OCT 01) 96 (SEP 30:) 99 (SEP 30:) General: Alert and oriented, No acute distress. [...] Results Review Radiology Results (Last 48 hours) [id number] -- 09/29/2020 14:[address] in OR [...] personally viewed, interpreted and dictated the examination. Jonatan read and agree with the above final transcribed report. OCT 01 03:02 137 103 H 27 / H 138 4.2 29 0.90 \ OCT 01 03:02 \ L 9.7 / H 15.0 294 / L 29.4 \ Impression and Plan Assessment and Plan: [...] for DVT treatment, if okay with neurosurgery Taper IV steroids if okay with neurosurgery Follow with neurosurgery recommendations for post surgery care. PT and OT Follow labs and electrolytes as needed. Discussed with the patient and nursing staff this morning. documented in this encounter Plan of Treatment Not on file documented as of this encounter Visit Diagnoses Not on filedocumented in this encounter Care Teams Donor Processor Relationship Specialty Start Date End Date Harris Quinn MD [address] [place] [address] [place] [address] PCP - General Adolescent Medicine 01/12/24 Jackie Prado, MEDICAL INSURANCE BILLER [address] [place] [address], [place] [address] Referring Physician Nurse Practitioner 01/12/24 documented as of this encounter
--- OUTSIDE RECORDS SUMMARY | 2025-05-17 12:53 | XMS_ITS | Encounter Summary ---
Author Organization [employer] Address [address] [place] [address] Care Team Providers Care General Administrator Name Role Phone Harris Qiunn MD Primary Care Provider + [phone] Jackie Prado SAMPLE SHOE INSPECTOR AND REWORKER Unavailable + [phone] Encounter Details Date Type Department Care Team (Late st Contact Info) Description 10/01/2020 Transcribed Document [facility] [place] Medicine [address] [place] [address] ProviderJerrica MD [address] [place] [address] Social History Tobacco Use Types Packs/Day Years Used Date Smoking Tobacco: Never Assessed Sex and Gender Information Value Date Recorded Sex Assigned at Male 06/20/2024 10:08 AM CDT Legal Sex Male 7:36 AM MOVIE STAR Gender Identity Male 06/20/2024 10:08 AM CDT Sexual Orientation Not on file documented as of this encounter Miscellaneous Notes * Cerner Conversion Note - Historical ProviderMD - 10/01/2020 10:00 AM MOVIE STAR Pain Assessment Entered On: 10/01/2020 14:41 EST Performed On: 10/01/2020 11:15 EST by Jessica Boyer RN Intervention Information: acetaminophen Performed by Jessica Boyer RN on 10/01/2020 10:15:00 EST acetaminophen,650mg Oral Pain Assessment Pain Assessment : Follow-up assessment Pain Scale Goal : 2 Pain Scale Used : 0-10 Scale Location : Back Onset : Acute Quality : Aching Pain Radiation : No Pain Worsened by : Movement Pain Intervention, Drug : Medicated Pain Improved by Intervention : Yes Jessica Boyer RN - 10/01/2020 14:40 EST Pain Scale Intensity : 4 Jessica Boyer RN - 10/01/2020 14:40 EST Image 4 - Images currently included in the form version of this document have not been included in the text rendition version of the form. Electronically signed by [facility], [facility] Conversion Permastone Installer Cerner at 03/08/2023 11:31 PM CDT documented in this encounter Plan of Treatment Not on file documented as of this encounter Visit Diagnoses Not on filedocumented in this encounter Care Teams General Administrator Relationship Specialty Start Date End Date Harris Quinn MD [address] [place] [facility] [address] [place] [address] PCP - General Adolescent Medicine 01/12/24 Jackie Prado, SAMPLE SHOE INSPECTOR AND REWORKER [address] [place] [address], [place] [address] Referring Physician Nurse Practitioner 01/12/24 documented as of this encounter
--- OUTSIDE RECORDS SUMMARY | 2025-05-17 12:53 | XMS_ITS | Encounter Summary ---
Author Organization [employer] Address [address] [place] [address] Care Team Providers Care Learning Support Assistant Name Role Phone Harris Quinn MD Primary Care Provider + [phone] Jackie Prado CARTON CATCHER Unavailable + [phone] Encounter Details Date Type Department Care Team (Late st Contact Info) Description 10/02/2020 Transcribed Document [facility] [place] Family Medicine [address] [place] [address] ProviderJerrica MD [address] [place], [place] [address] Social History Tobacco Use Types Packs/Day Years Used Date Smoking Tobacco: Never Assessed Sex and Gender Information Value Date Recorded Sex Assigned at Male 06/20/2024 10:08 AM CDT Legal Sex Male 7:36 AM ORTHO ASSISTANT Gender Identity Male 06/20/2024 10:08 AM CDT Sexual Orientation Not on file documented as of this encounter Miscellaneous Notes * Cerner Conversion Note - Historical ProviderMD - 10/02/2020 10:00 PM ORTHO ASSISTANT Pain Assessment Entered On: 10/03/2020 0:13 EST Performed On: 10/02/2020 23:00 EST by Xin Lambert RN Intervention Information: acetaminophen Performed by Xin Lambert RN on 10/02/2020 22:00:00 EST acetaminophen,650mg Oral Pain Assessment Pain Assessment : Follow-up assessment Pain Scale Goal : 2 Pain Scale Used : 0-10 Scale Xin Lambert RN - 10/03/2020 0:13 EST Pain Scale Intensity : 2 Xin Lambert RN - 10/03/2020 0:13 EST Image 4 - Images currently included in the form version of this document have not been included in the text rendition version of the form. documented in this encounter Plan of Treatment Not on file documented as of this encounter Visit Diagnoses Not on filedocumented in this encounter Care Teams Learning Support Assistant Relationship Specialty Start Date End Date Harris Quinn MD [address] [place] [facility] [address] [place] [address] PCP - General Adolescent Medicine 01/12/24 Jackie Prado, LEORA [address] [facility] [address] [place], [place] [address] Referring Physician Nurse Practitioner 01/12/24 documented as of this encounter
--- OUTSIDE RECORDS SUMMARY | 2025-05-17 12:53 | XMS_ITS | Encounter Summary ---
Author Organization [employer] Address [address] [place] [address] Care Team Providers Care Project Planner Name Role Phone Harris Quinn MD Primary Care Provider + [phone] Jackie Prado ROOFER VINYL COATING Unavailable + [phone] Encounter Details Date Type Department Care Team (Late st Contact Info) Description 09/30/2020 Transcribed Document [facility] [place] [address] [place] [address] ProviderJerrica MD [address] [place] [address] Social History Tobacco Use Types Packs/Day Years Used Date Smoking Tobacco: Never Assessed Sex and Gender Information Value Date Recorded Sex Assigned at Male 06/20/2024 10:08 AM CDT Legal Sex Male 7:36 AM 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 Gender Identity Male 06/20/2024 10:08 AM CDT Sexual Orientation Not on file documented as of this encounter Miscellaneous Notes * Cerner Conversion Note - Historical ProviderMD - 09/30/2020 8:15 PM NASCAR 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 Pain Assessment Entered On: 10/02/2020 19:28 EST Performed On: 10/02/2020 12:12 EST by Miko Perdomo RN Intervention Information: oxyCODONE Performed by Miko Perdomo RN on 10/02/2020 11:12:00 EST oxyCODONE,10mg Oral,Pain (Moderate 4-6) Pain Assessment Pain Assessment : Follow-up assessment Pain Scale Goal : 2 Miko Perdomo RN - 10/02/2020 19:28 EST Electronically signed by Bailey, [facility] Conversion Fall Internship Cerner at 03/11/2023 9:23 AM CDT documented in this encounter Plan of Treatment Not on file documented as of this encounter Visit Diagnoses Not on filedocumented in this encounter Care Teams Project Planner Relationship Specialty Start Date End Date Harris Quinn MD [address] [facility] [address] [place] [address] PCP - General Adolescent Medicine 01/12/24 Jackie Prado, ROOFER VINYL COATING [address] [facility] [address], [place] [address] Referring Physician Nurse Practitioner 01/12/24 documented as of this encounter
--- OUTSIDE RECORDS SUMMARY | 2025-05-17 12:53 | XMS_ITS | Encounter Summary ---
Author Organization [employer] Address [address] [place] [address] Care Team Providers Care Executive Director Name Role Phone Harris Quinn MD Primary Care Provider + [phone] Jackie Prado BUILDING CONSTRUCTION FOREMAN Unavailable + [phone] Encounter Details Date Type Department Care Team (Late st Contact Info) Description 10/01/2020 Transcribed Document [facility] [place] [address] [place] [address] ProviderJerrica MD [address] [place] [address] Social History Tobacco Use Types Packs/Day Years Used Date Smoking Tobacco: Never Assessed Sex and Gender Information Value Date Recorded Sex Assigned at Male 06/20/2024 10:08 AM CDT Legal Sex Male 7:36 AM REPOSSESSOR Gender Identity Male 06/20/2024 10:08 AM CDT Sexual Orientation Not on file documented as of this encounter Miscellaneous Notes * Cerner Conversion Note - Historical ProviderMD - 10/01/2020 6:00 AM REPOSSESSOR Pain Assessment Entered On: 10/01/2020 6:49 EST Performed On: 10/01/2020 7:12 EST by Armando Armenta Rn Intervention Information: acetaminophen Performed by Armando Armenta Rn on 10/01/2020 06:12:00 EST acetaminophen,650mg Oral Pain Assessment Pain Scale Goal : 2 Armando Armenta Rn - 10/01/2020 6:49 EST Electronically signed by Bailey [facility] Conversion Fingerprint Expert Cerner at 03/08/2023 11:45 PM CDT documented in this encounter Plan of Treatment Not on file documented as of this encounter Visit Diagnoses Not on filedocumented in this encounter Care Teams Executive Director Relationship Specialty Start Date End Date Harris Quinn MD [address] [place] [facility] [address] [place] [address] PCP - General Adolescent Medicine 01/12/24 Jackie Prado, BUILDING CONSTRUCTION FOREMAN [address] [place] [facility] [address], [place] [address] Referring Physician Nurse Practitioner 01/12/24 documented as of this encounter
--- OUTSIDE RECORDS SUMMARY | 2025-05-17 12:53 | XMS_ITS | Encounter Summary ---
Author Organization [employer] Address [address] [place] [address] Care Team Providers Care Director Supplier Quality Name Role Phone Harris Quinn MD Primary Care Provider + [phone] Jackie Prado BARK SKINNER Unavailable + [phone] Encounter Details Date Type Department Care Team (Late st Contact Info) Description 09/28/2020 Transcribed Document [facility] [place] [address] [place] [address] ProviderJerrica MD [address] [place] [address] Social History Tobacco Use Types Packs/Day Years Used Date Smoking Tobacco: Never Assessed Sex and Gender Information Value Date Recorded Sex Assigned at Male 06/20/2024 10:08 AM CDT Legal Sex Male 7:36 AM ADMITTING INTERVIEWER Gender Identity Male 06/20/2024 10:08 AM CDT Sexual Orientation Not on file documented as of this encounter Miscellaneous Notes * Cerner Conversion Note - Historical ProviderMD - 09/28/2020 12:09 PM ADMITTING INTERVIEWER UM Authorization Entered On: 09/28/2020 12:09 EST Performed On: 09/28/2020 12:09 EST by Rema Dawn Rn-Utilization Review Primary Insurance Authorization Authorization and Policy Numbers : Insurance 1 Health Plan: Active Tax [employer] Accounting Policy Number: [id number] Authorization Number: Insurance Primary Name : Active Tax [employer] Accounting Policy Number: [id number] Authorized Service Begin Date-Primary : 09/27/2020 EST Historical Authorization Comments-Primary : No Authorization Comments Found López, Rema L, Rn-Utilization Review - 09/28/2020 12:09 EST Electronically signed by [facility], [facility] Conversion Airplane Pilot Chief Cerner at 03/08/2023 11:33 PM CDT documented in this encounter Plan of Treatment Not on file documented as of this encounter Visit Diagnoses Not on filedocumented in this encounter Care Teams Director Supplier Quality Relationship Specialty Start Date End Date Harris Quinn MD [address] [place] [facility] [address] [place] [address] PCP - General Adolescent Medicine 01/12/24 Jackie Prado, BARK SKINNER [address] [place] [address], [place] [address] Referring Physician Nurse Practitioner 01/12/24 documented as of this encounter
--- OUTSIDE RECORDS SUMMARY | 2025-05-17 12:53 | XMS_ITS | Encounter Summary ---
Author Organization [email or web address] Address [address] [place] [address] Care Team Providers Care Drink Mixer Name Role Phone Harris Quinn MD Primary Care Provider + [phone] Jackie Prado HAND FABRIC CUTTER Unavailable + [phone] Encounter Details Date Type Department Care Team (Late st Contact Info) Description 10/02/2020 Transcribed Document [facility] [place] [address] [place] [address] ProviderJerrica MD [address] [place] [address] Social History Tobacco Use Types Packs/Day Years Used Date Smoking Tobacco: Never Assessed Sex and Gender Information Value Date Recorded Sex Assigned at Male 06/20/2024 10:08 AM CDT Legal Sex Male 7:36 AM TAPER OPERATOR Gender Identity Male 06/20/2024 10:08 AM CDT Sexual Orientation Not on file documented as of this encounter Miscellaneous Notes * Cerner Conversion Note - Historical ProviderMD - 10/02/2020 5:00 PM TAPER OPERATOR Chart Check - Review Order Profile Entered On: 10/02/2020 19:28 EST Performed On: 10/02/2020 17:00 EST by Miko Perdomo, RN Chart Check All Active Orders Reviewed : Yes Miko Perdomo RN - 10/02/2020 19:28 EST Electronically signed by Bailey [facility] Conversion Manager Telemetry Cerner at 03/08/2023 11:28 PM CDT documented in this encounter Plan of Treatment Not on file documented as of this encounter Visit Diagnoses Not on filedocumented in this encounter Care Teams Drink Mixer Relationship Specialty Start Date End Date Harris Quinn MD [address] [place] [address] [place] [address] PCP - General Adolescent Medicine 01/12/24 Jackie Prado, HAND FABRIC CUTTER [address] [place] [address], [place] [address] Referring Physician Nurse Practitioner 01/12/24 documented as of this encounter
--- OUTSIDE RECORDS SUMMARY | 2025-05-17 12:53 | XMS_ITS | Encounter Summary ---
Author Organization [employer] Address [address] [place] [address] Care Team Providers Care Ceramic Tile Installer Name Role Phone Harris Quinn MD Primary Care Provider + [phone] Jackie Prado PEOPLESOFT CRM DEVELOPER Unavailable + [phone] Encounter Details Date Type Department Care Team (Late st Contact Info) Description 09/28/2020 Transcribed Document [facility] [place] [address] [place] [address] ProviderJerrica MD [address] [place] [address] Social History Tobacco Use Types Packs/Day Years Used Date Smoking Tobacco: Never Assessed Sex and Gender Information Value Date Recorded Sex Assigned at Male 06/20/2024 10:08 AM CDT Legal Sex Male 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 OT Charges Entered On: 09/28/2020 13:26 EST Performed On: 09/28/2020 11:19 EST by JAYNE MENDOZA OTR/Sebastien Mcmanus OT Charges Screen For Database Security Administrator : 1 JAYNE MENDOZA OTR/Sebastien - 09/28/2020 13:24 EST documented in this encounter Plan of Treatment Not on file documented as of this encounter Visit Diagnoses Not on filedocumented in this encounter Care Teams Ceramic Tile Installer Relationship Specialty Start Date End Date Harris Quinn MD [address] [place] [address] [place] [address] PCP - General Adolescent Medicine 01/12/24 Jackie Prado, PEOPLESOFT CRM DEVELOPER [address] [place] [address], [place] [address] Referring Physician Nurse Practitioner 01/12/24 documented as of this encounter
--- OUTSIDE RECORDS SUMMARY | 2025-05-17 12:53 | XMS_ITS | Encounter Summary ---
Author Organization [employer] Address [address] [place] [address] Care Team Providers Care Aircraft Maintenance Technician Name Role Phone Harris Quinn MD Primary Care Provider + [phone] Jackie Prado RV MECHANIC Unavailable + [phone] Encounter Details Date Type Department Care Team (Late st Contact Info) Description 09/28/2020 Transcribed Document [facility] [place] [address] [place] [address] ProviderJerrica MD [address] [place] [address] Social History Tobacco Use Types Packs/Day Years Used Date Smoking Tobacco: Never Assessed Sex and Gender Information Value Date Recorded Sex Assigned at Male 06/20/2024 10:08 AM CDT Legal Sex Male 7:36 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 PT Charges Entered On: 09/28/2020 12:35 EST Performed On: 09/28/2020 11:24 EST by JOS PATEL PT [facility] PT Charges Physical Therapy Screen : 1 JOS PATEL PT - 09/28/2020 12:35 EST Electronically signed by Bailey [facility] Conversion Blade Groover Cerner at 03/08/2023 11:29 PM CDT documented in this encounter Plan of Treatment Not on file documented as of this encounter Visit Diagnoses Not on filedocumented in this encounter Care Teams Aircraft Maintenance Technician Relationship Specialty Start Date End Date Harris Quinn MD [address] [place] [address] [place] [address] PCP - General Adolescent Medicine 01/12/24 Jackie Prado, RV MECHANIC [address] [place] [address], [place] [address] Referring Physician Nurse Practitioner 01/12/24 documented as of this encounter
--- OUTSIDE RECORDS SUMMARY | 2025-05-17 12:53 | XMS_ITS | Encounter Summary ---
Author Organization [employer] Address [address] [place] [address] Care Team Providers Care Supervisor Patching Name Role Phone Harris Quinn MD Primary Care Provider + [phone] Jackie Prado COCOA ROASTER Unavailable + [phone] Encounter Details Date Type Department Care Team (Late st Contact Info) Description 10/02/2020 Transcribed Document [facility] Neurology - [facility] [address] [address] John Cerda MD [address] [place] [address] Social History Tobacco Use Types Packs/Day Years Used Date Smoking Tobacco: Never Assessed Sex and Gender Information Value Date Recorded Sex Assigned at Male 06/20/2024 10:08 AM CDT Legal Sex Male 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 Objective VS/Measurements Vitals Signs (last 24 hrs) Last Charted Minimum Maximum Temp 98.3 (OCT 02:10) 97.9 (OCT 01:30) 98.2 (OCT 01:) Mon HR 65 (OCT 02 06:10) 65 (OCT 02 06:10) 86 (OCT 01 08:30) Resp Rate 18 (OCT 02 06:10) 16 (OCT 01 14:51) 19 (OCT 01:30) SBP H 147 (OCT 02:) 119 (OCT 01 08:30) H 156 (OCT 01 14:51) DBP L 48 (OCT 02:10) L 44 (OCT 01:) 67 (OCT 01 14:51) MAP 69 (OCT 02:) 63 (OCT 01 08:30) 90 (OCT 01 14:51) SpO2 95 (OCT 02:) L 93 (OCT 01 08:30) 98 (OCT 01 14:51) AAOx3. Sitting up in bed. Incision clean, dry, and intact. FREDDY with 160cc last 24 hours. Ambulated with PT 280' yesterday. Impression and Plan POD 2 L2-iliac fusion. Will d/c FREDDY drain this afternoon. Continue PT/OT. Decreased dexamethasone. Likely discharge home tomorrow. documented in this encounter Plan of Treatment Not on file documented as of this encounter Visit Diagnoses Not on filedocumented in this encounter Care Teams Supervisor Patching Relationship Specialty Start Date End Date Harris Quinn MD [address] [place] [facility] [address] [place] [address] PCP - General Adolescent Medicine 01/12/24 Jackie Prado, COCOA ROASTER [address] [place] [facility] [address] [place] [address] Referring Physician Nurse Practitioner 01/12/24 documented as of this encounter
--- OUTSIDE RECORDS SUMMARY | 2025-05-17 12:53 | XMS_ITS | Encounter Summary ---
Author Organization [employer] Address [address] [place] [address] Care Team Providers Care Equity Research Associate Name Role Phone Harris Quinn MD Primary Care Provider + [phone] Jackie Prado GRINDER OUTSIDE DIAMETER Unavailable + [phone] Encounter Details Date Type Department Care Team (Late st Contact Info) Description 09/28/2020 Transcribed Document [facility] [place] [address] [place] [address] ProviderJerrica MD [address] [place] [address] Social History Tobacco Use Types Packs/Day Years Used Date Smoking Tobacco: Never Assessed Sex and Gender Information Value Date Recorded Sex Assigned at Male 06/20/2024 10:08 AM CDT Legal Sex Male 7:36 AM THIRD HAND Gender Identity Male 06/20/2024 10:08 AM CDT Sexual Orientation Not on file documented as of this encounter Miscellaneous Notes * Cerner Conversion Note - Historical ProviderMD - 09/28/2020 12:09 PM THIRD HAND UM Authorization Entered On: 09/28/2020 12:10 EST Performed On: 09/28/2020 12:09 EST by Rema Dawn Rn-Utilization Review Primary Insurance Authorization Authorization and Policy Numbers : Insurance 1 Health Plan: [employer] Policy Number: [id number] Authorization Number: Insurance Primary Name : [employer] Policy Number: [id number] Authorized Service Begin Date-Primary : 09/27/2020 EST Authorization Comments-Primary : EM TO UR TEAM TO UPGRADE TO IP IF PATIENT HAS SURGERY Historical Authorization Comments-Primary : No Authorization Comments Found Rema Dawn, Rn-Utilization Review - 09/28/2020 12:09 EST Electronically signed by Bailey [facility] Conversion Wastewater Plant Operator Cerner at 03/08/2023 11:37 PM CDT documented in this encounter Plan of Treatment Not on file documented as of this encounter Visit Diagnoses Not on filedocumented in this encounter Care Teams Equity Research Associate Relationship Specialty Start Date End Date Harris Quinn MD [address] [place] [facility] [address] [place] [address] PCP - General Adolescent Medicine 01/12/24 Jackie Prado, GRINDER OUTSIDE DIAMETER [address] [place] [facility] [address] [place], [place] [address] Referring Physician Nurse Practitioner 01/12/24 documented as of this encounter
--- OUTSIDE RECORDS SUMMARY | 2025-05-17 12:53 | XMS_ITS | Encounter Summary ---
Author Organization [employer] Address [address] [place] [address] Care Team Providers Care Visitor Services Representative Name Role Phone Harris Quinn MD Primary Care Provider + [phone] Jackie Prado RELIEF CAPTAIN Unavailable + [phone] Encounter Details Date Type Department Care Team (Late st Contact Info) Description 09/29/2020 Transcribed Document [facility] [address] [place] [address] Stu Liang MD [address] [place] [address] [address] [place] [address] Social History Tobacco Use Types Packs/Day Years Used Date Smoking Tobacco: Never Assessed Sex and Gender Information Value Date Recorded Sex Assigned at Male 06/20/2024 10:08 AM CDT 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 Harrsi Quinn DOA: 09/27/2020 DOD: HPI: Admitted with back pain and right radiculopathy CODE STATUS: Full code CONSULTS: Neurosurgery WORKUP / PROCEDURES: HOSPITAL FOLLOWUP: 09/28/2020 Patient seen and examined, [...] chest pain or shortness of breath noted. Health Status Allergies: Allergic Reactions (Selected) No Known Allergies Current medications: (Selected) Inpatient Medications Ordered Colace: 100 mg, Oral, BID, PRN: Constipation Fish Oil: 1,000 mg, Oral, Daily Flexeril: 5 mg, Oral, TID, PRN: Spasms Lipitor: 40 mg, Oral, Daily Lovenox: 70 mg, SubCutaneous, [id number] MiraLax: 17 Gram, Oral, Daily, PRN: Constipation Roxicodone: 10 mg, Oral, Q4H, PRN: Pain (Moderate 4-6) Tylenol: 650 mg, Oral, Q4H, PRN: Pain (Mild 1-3) Zebeta: 10 mg, Oral, Daily Zofran: 4 mg, IV Push, Q4H, PRN: Nausea amLODIPine: 5 mg, Oral, Daily aspirin: 81 mg, Oral, Daily cloNIDine: 0.1 mg, Oral, Q6H, PRN: Hypertension dexAMETHasone: 4 mg, IV Push, Q8H gabapentin: 300 mg, Oral, At Bedtime hydroCHLOROthiazide: 6.25 mg, Oral, Daily ketotifen ophthalmic: 1 Drop, Eyes Both, BID, PRN: Allergies morphine: 2 mg, IV Push, Q2H, PRN: Pain (Severe 7-10) Documented Medications Documented Fish Oil 1000 mg [...] BID, PRN: Allergies, 0 Refill(s), Home Medications (9) Active acetaminophen-HYDROcodone 325 mg-10 mg oral tablet 1 Tab, PRN, Oral, QID amLODIPine 5 mg oral tablet 5 mg = 1 Tab, Oral, Daily aspirin 81 mg oral delayed release tablet 81 mg = 1 Tab, Oral, Daily atorvastatin 80 mg oral tablet 40 mg = 0.5 Tab, Oral, At Bedtime bisoprolol-hydroCHLOROthiazide 10 mg-6.25 mg oral tablet 1 Tab, Oral, Daily diclofenac sodium 75 mg oral delayed release tablet 75 mg = 1 Tab, Oral, BID Fish Oil 1000 mg oral capsule 1,000 mg = 1 Cap, Oral, Daily gabapentin 300 mg oral capsule 300 mg = 1 Cap, Oral, At Bedtime olopatadine 0.1% ophthalmic solution 1 Drop, PRN, Eyes Both, BID Problem list: Active Problems (1) At risk for sleep apnea Objective VS/Measurements Vitals Signs (last 24 hrs) Last Charted Minimum Maximum Temp 97.9 (SEP 29:45) 97.9 (SEP 29:45) 98.2 (SEP 28 11:00) Mon HR 66 (SEP 29:45) 60 (SEP 29 02:30) 89 (SEP 28 18:47) Resp Rate 14 (SEP 29:45) 14 (SEP 29 06:45) 16 (SEP 28 23:00) SBP H 152 (SEP 29:45) H 146 (SEP 29 02:30) H 167 (SEP 28 15:00) DBP L 56 (SEP 29:45) L 56 (SEP 29 06:45) 70 (SEP 28 11:00) MAP 81 (SEP 29 06:45) 81 (SEP 29 06:45) 89 (SEP 28 18:47) SpO2 98 (SEP 29 06:45) L 92 (SEP 28 18:47) 98 (SEP 29 06:45) General: Alert and oriented, No acute distress. [...] Results Review Radiology Results (Last 48 hours) [id number] -- 09/27/2020 17:07 MRI Spine Lumbar WO W (09/27/2020 18:49) [...] nerve root. There is contact of the T1rsnhk root in the lateral recess.L3-L4: There is [...] stenosis. This contacts and displaces the right L2fivcw root. There is mild right foraminal narrowing. [...] interpreted, and dictated by Jaquan Carey MD No qualifying data available Impression and Plan Assessment and Plan: Diagnosis. DIAGNOSIS: Degenerative disc disease and has had 2 back surgeries. Acute back pain with right radiculopathy, MRI abnormality is noted. Acute right lower extremity DVT as per outlying venous Doppler and documented in H&P. Essential hypertension Hyperlipidemia Osteoarthritis History of some kind of cardiac valve surgery in childhood PLAN Continue current management as outlined above and reviewed. Continue with Lovenox for DVT management. Continue with IV steroids as per neurosurgery recommendations. Follow with neurosurgery regarding surgical recommendations. PT and OT Follow labs and electrolytes as needed. Pain management. Discussed with the patient this morning and he is anxiously waiting for his surgery plans. documented in this encounter Plan of Treatment Not on file documented as of this encounter Visit Diagnoses Not on filedocumented in this encounter Care Teams Visitor Services Representative Relationship Specialty Start Date End Date Harris Quinn MD [address] [place] [facility] [address] [place] [address] PCP - General Adolescent Medicine 01/12/24 Jackie Prado, LEORA [address] [place] [facility] [address], [place] [address] Referring Physician Nurse Practitioner 01/12/24 documented as of this encounter
--- OUTSIDE RECORDS SUMMARY | 2025-05-17 12:53 | XMS_ITS | Encounter Summary ---
Author Organization [employer] Address [address] [place] [address] Care Team Providers Care Cnc Mill Programmer Name Role Phone Harris Quinn MD Primary Care Provider + [phone] Jackie rPado FOUNTAIN WORKER Unavailable + [phone] Encounter Details Date Type Department Care Team (Late st Contact Info) Description 09/29/[address] 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 Gender Identity Male 06/20/2024 10:08 AM CDT Sexual Orientation Not on file documented as of this encounter Miscellaneous Notes * Cerner Conversion Note - Historical ProviderMD - 09/29/2020 2:46 PM ADMINISTRATIVE ACCOUNTANT UM Authorization Entered On: 09/29/2020 14:47 EST Performed On: 09/29/2020 14:46 EST by AUSTIN KENNEY RN-Utilization Review Primary Insurance Authorization Authorization and Policy Numbers : Insurance 1 Health Plan: [employer] Policy Number: [id number] Authorization Number: Insurance Primary Name : [employer] Policy Number: [id number] Authorization Status-Primary : Awaiting callback Authorized Service Begin Date-Primary : 09/27/2020 EST Authorization Comments-Primary : plan is for OR 09/30/2020; upgraded to IP, email to dt to update status, secure email sent to steph rick w/ demographics and initial packet attached Historical Authorization Comments-Primary : Comment 1: EM TO UR TEAM TO UPGRADE TO IP IF PATIENT HAS SURGERY (Rema Dawn, Rn-Utilization Review 09/28/2020 12:09) AUSTIN KENNEY, RN-Utilization Review - 09/29/2020 14:46 EST Electronically signed by [facility] Conversion Client Technologies Analyst Cerner at 03/08/2023 11:42 PM CDT documented in this encounter Plan of Treatment Not on file documented as of this encounter Visit Diagnoses Not on filedocumented in this encounter Care Teams Cnc Mill Programmer Relationship Specialty Start Date End Date Harris Quinn MD [address] [facility] [address] [place] [address] PCP - General Adolescent Medicine 01/12/24 Jackie Prado, FOUNTAIN WORKER [address] [facility] [address] [place] [address] Referring Physician Nurse Practitioner 01/12/24 documented as of this encounter
--- OUTSIDE RECORDS SUMMARY | 2025-05-17 12:53 | XMS_ITS | Data Portability ---
Author Organization [facility] Address [address] [facility] [address] [place] [address] Care Team Providers Care Rn Quality Name Role Phone PIYUSH ÁLVAREZ Primary Care Provider [phone] Assessment Encounter Date Assessment Date Assessment LastModified by Organization Details LastModified Time 10/22/2020 10/22/2020 Pt is s/p L2-4 PLIF 09/30/20, Dr. Bill Mcrae. Pt is in the office for staple removal. His incision healed nicely . Marco Antonio removed, steri strips applied. Pt tolerated the procedure well. [email or web address] Not available 10/23/2020 14:46:58 11/10/2020 11/10/2020 Mr. Guardado is doing well after a L2 through iliac fusion. His x-rays today look great. I gave him a printed copy of the AP and lateral views. I encouraged him to walk is much as possible. He will continue to use his brace as instructed for another couple weeks, then use it as needed [id number] ter coming months. We will see him back in 2 months to monitor his progress. [email or web address] Not available 11/10/2020 12:29:17 Plan of Treatment Reminders Order Date Submit Date Provider Last Modified By Organization Details Last Modified Time Details Appointments None record ed. Lab None record ed. Referral None record ed. Procedures None record ed. Surgeries None record ed. Imaging None record ed. Medication Orders None record ed. Patient TargetsNo targets recorded. Patient InstructionsNo instructions recorded. Reason for Referral None Reported. Results Created Date Observation Date Name Description Value Unit Range Abnormal Flag Note LastModifiedBy Organization Detail LastModifiedTime 09/27/20 20 09/27/2020 MRI, lumba r spine , w/o contr ast No observ ation record ed. [email or web address] [facility] [address] [facility] , [place], [address], 10/06/2020 08:37:59 11/10/20 20 11/10/2020 XR, lumbo sacra l spine , 2 or 3 view [facility] [address] [place] [address] [place] [address] Patidario t Name: PRABHA márquez : [birth year] 57 Patidario t 08 Orderi ng Provid er: ANABEL MALLORYT EXAM DATE: 2019 EXAM: XR LUMBAR AP/LAT CLINIC AL INFORM ATION: Back pain. IMAGES PROVID ED: AP, latera l and coned down views of the lumbar spine. COMPAR FAYE: None. FINDIN GS: There is L2 throug h sacral ballast inspector ior fixati on and interb paola fusion . No comp occasi ons are presen t. No hardwa re loosen ing or discon tinuit y. Broad scolio sis convex to the left roughl y 14 degree s. No parasp inal soft tissue diseas e. Very mild compre ssion of T12. Diffus e degene rative endpla te spurri ng is noted. IMPRES MICHAELLE: Uncomp licate d appear ing L2 throug h sacral fusion Interp reted By: Renard Worthington MD Electr onical ly Signed By: Renard Worthington MD on 2019 10:51 AM [email or web address] [facility] Radiology [facility] [address] [place] [address], [id number], 11/12/2020 14:19:59 02/06/20 21 02/05/2021 XR, lumbo sacra l spine , 2 or 3 view [facility] [address] [place] [address] [place] [address] Patidario t Name: PRABHA márquez : [birth year] 57 Patidario t 08 Orderi ng Provid er: ANABEL COLVIN EXAM DATE: 2020 EXAM: XR LUMBAR AP/LAT CLINIC AL INFORM ATION: Postop erativ e. IMAGES PROVID ED: AP, latera l, and coned- down views of the lumbar spine. COMPAR FAYE: None. FINDIN GS AND IMPRES MICHAELLE: Spinal fusion is noted at L2-S2 level with pedicu lar screws and connec ting rods. Surgic al hardwa re is satisf actori ly placed . No eviden ce of loosen ing or infect ion is seen. Degene rative change s are seen at other levels . Interp reted By: Natasha Slade MD Electr onical ly Signed By: Natasha Slade MD on 021 12:29 PM [email or web address] [facility] Radiology [address], [address], 02/05/2021 15:06:58 Result Notes Documentation Provider Name and Address Organization Details Recorded Time Xr, Lumbosacral Spine, 2 Or 3 View : [place] [address] Patient Name: ELIZA GUARDADO Patient : 1955 Patient Ordering Provider: TROY COLVIN EXAM DATE: 11/10/2020 EXAM: XR LUMBAR AP/LAT CLINICAL INFORMATION: Back pain. IMAGES PROVIDED: AP, lateral and coned down views of the lumbar spine. COMPARISON: None. FINDINGS: There is L2 through sacral posterior fixation and interbody fusion. No comp occasions are present. No hardware loosening or discontinuity. Broad scoliosis convex to the left roughly 14 degrees. No paraspinal soft tissue disease. Very mild compression of T12. Diffuse degenerative endplate spurring is noted. IMPRESSION: Uncomplicated appearing L2 through sacral fusion Interpreted By: Renard Worthington MD COLVIN MD [address] [place] [address], [phone], [facility] 11/12/2020 14:19:59 Xr, Lumbosacral Spine, 2 Or 3 View : [address] [address] Patient Name: ELIZA GUARDADO Patient : 1955 Patient Ordering Provider: TROY COLVIN EXAM DATE: 02/05/2021 EXAM: XR LUMBAR AP/LAT CLINICAL INFORMATION: Postoperative. IMAGES PROVIDED: AP, lateral, and coned-down views of the lumbar spine. COMPARISON: None. FINDINGS AND IMPRESSION: Spinal fusion is noted at L2-S2 level with pedicular screws and connecting rods. Surgical hardware is satisfactorily placed. No evidence of loosening or infection is seen. Degenerative changes are seen at other levels. Interpreted By: Demetrio Slade MD COLVIN MD [address] [place] [address], [phone] 02/05/2021 15:06:58 Medical Equipment None Reported. Allergies No known drug allergies Medications Name Sig Start Date Stop Date Status Note LastModified by Organization Details LastModified Time celecoxib 200 mg capsule TAKE ONE CAPSULE BY MOUTH EVERY DAY active Not Available Not Available No t Available cyclobenzapr ine 10 mg tablet active Not Available Not Available Not Available atorvastatin 80 mg tablet TAKE 1/2 TABLET BY MOUTH EVERY DAY active Not Available Not Available No t Available bisoprolol 10 mg-hydrochlo rothiazide 6.25 mg tablet active Not Available Not Available Not Available hydrocodone 5 mg-acetamino phen 325 mg tablet TAKE TWO TABLETS BY MOUTH EVERY 6 HOURS MAY CAUSE DROWSINESS active Not Available Not Available N ot Available prednisone 20 mg tablet TAKE THREE TABLETS BY MOUTH ONCE DAILY FOR 2 DAYS, TAKE TWO TABLETS BY MOUTH ONCE DAILY FOR 2 DAYS, TAKE ONE TABLET ONCE DAILY FOR ONE DAY --TAKE WITH FOOD-- active Not Available Not Available No t Available diphenoxylat e-atropine 2.5 mg-0.025 mg tablet TAKE ONE TABLET BY MOUTH EVERY 6 HOURS NEEDED FOR diarrhea MAY CAUSE DROWSINESS active Not Available Not Available N ot Available amlodipine 5 mg tablet TAKE ONE TABLET BY MOUTH EVERY DAY active Not Available Not Available No t Available hydrocodone 10 mg-acetamino phen 325 mg tablet TAKE ONE TABLET BY MOUTH FOUR TIMES DAILY NEEDED FOR PAIN MAY CAUSE DROWSINESS active Not Available Not Available N ot Available bisoprolol fumarate 10 mg tablet TAKE ONE TABLET BY MOUTH EVERY DAY active Not Available Not Available No t Available bisoprolol fumarate 5 mg tablet TAKE ONE TABLET BY MOUTH EVERY DAY active Not Available Not Available No t Available methotrexate sodium 2.5 mg tablet TAKE EIGHT TABLETS BY MOUTH ONCE A WEEK active Not Available Not Available No t Available dexamethason e 2 mg tablet active Not Available Not Available Not Available olopatadine 0.1 % eye drops active Not Available Not Available Not Available promethazine 25 mg tablet TAKE ONE TABLET BY MOUTH EVERY 6 HOURS NEEDED FOR NAUSEA AND VOMITING MAY CAUSE DROWSINESS active Not Available Not Available N ot Available gabapentin 300 mg capsule TAKE ONE CAPSULE BY MOUTH EVERY DAY AT BEDTIME MAY CAUSE DROWSINESS active Not Available Not Available N ot Available diclofenac sodium 75 mg tablet,delay ed release active Not Available Not Available N ot Available folic acid 1 mg tablet TAKE ONE TABLET BY MOUTH EVERY DAY active Not Available Not Available No t Available gabapentin 100 mg capsule active Not Available Not Available Not Available oxycodone-ac etaminophen 7.5 mg-325 mg tablet active Not Available Not Available No t Available methylpredni solone 4 mg tablets in a dose pack TAKE ACCORDING TO PACKAGE INSTRUCTION S --TAKE WITH FOOD-- -- FINISH ALL MEDICINE -- active Not Available Not Available Not Available losartan 100 mg tablet TAKE ONE TABLET BY MOUTH EVERY DAY active Not Available Not Available No t Available amoxicillin 875 mg-potassium clavulanate 125 mg tablet TAKE ONE TABLET BY MOUTH EVERY TWELVE HOURS FOR 10 DAYS -- FINISH ALL MEDICINE -- active Not Available Not Available Not Available cyclobenzapr ine 5 mg tablet active Not Available Not Available Not Available Eliquis 5 mg tablet TAKE ONE TABLET BY MOUTH TWICE DAILY active Not Available Not Available No t Available BinaxNOW COVID-19 Ag Self Test kit TEST DIRECTED TODAY active Not Available Not Available No t Available Vitals Date Recorded Systolic blood pressure Diastolic blood pressure Provider Name and Address Organization Details Last Updated DateTime 11/10/2020 130 mm[Hg] 80 mm[Hg] Marci Greene [facility] 11/10/2020 11:24:44 Social History None recorded. Functional Status None recorded. Mental Status None recorded. Family History Nothing Reported. Medical History No medical history recorded. Past Encounters Encounter ID Performer Location Encounter Start Date Encounter Closed Date Diagnosis/Indication Diagnosis SNOMED-CT Code Diagnosis ICD10 Code Diagnosis Note [id number] TROY COLVIN MD SURGERY SCHEDULE [address] [place] [address] 10/03/2020 15:34:22 10/06/2020 16:29:57 [id number] TROY COLVIN MD [facility] [address] [place] [address] 10/22/2020 14:54:49 10/23/2020 12:22:13 [id number] TROY COLVIN [facility] [address] [place] [address] 11/10/2020 11:08:18 11/10/2020 12:38:43 Postoperative care [id number] Z48.89 [id number] MARYLU ALEJANDRO PA-C [facility] [address] [place] [address] 02/05/2021 10:36:28 02/06/2021 12:59:52 Postoperative care [id number] Z48.89 66-year-ol d male status post extension of fusion L2 to iliac September 30, [address] Colvin here for postoperat leah follow-up. X-rays reviewed show stable placement of the hardware without evidence of loosening. I've given the patient a copy of these. Reassured the patient that he may continue to see kenroy márquez in his back pain as he continues to progress his walking tolerance and gets further from surgery. Also reassured him it may take a whole year to see kenroy willi in his lower extremity symptoms. We discussed proper body mechanics. Encouraged him to progress his activity as tolerated. We'll als briefly discussed side effects of chronic steroid use and to avoid chronic steroid use of all possible. We will allow Mr. Guardado to follow up with us as needed moving forward. pt seen by myself and dr colvin Health Concerns Section Related Observation LastModified by Organization Detai ls LastModified Time None Recorded Concern Status LastModified by Organization Details LastModified Time None Recorded Advance Directives Directive None Recorded Payers Insurance Date Sequence Insurance Name Policy Number Policy Marques Covered Member ID Marques Member ID Guarantor Name 12/29/2023 2 [place] 111 Eliza Cobos Fausto [id number] Eliza Cobos Fausto 12/29/2023 1 MEDICARE-[employer] (MEDICARE) Eliza Cobos Fausto [id number] Eliza Cobos Fausto Notes Date Note Type Note Provider Name and Address Organization Details Recorded Time 11/10/2020 text/html Mr. Guardado is recovering well from an L2 to iliac fusion. He presents today for his first visit with x-rays. He denies any significant nerve pain, just post operative soreness. TROY COLVIN MD [address] [place], [address], [facility] 11/10/2020 12:29:26 02/05/2021 text/html 66-year-old male status post extension of fusion L2 to iliac on 09/30/[address] Colvin here for postoperative follow-up. The patient states that overall he is doing well since surgery. Still has some left-sided low back pain and numbness in the right anterior lateral thigh but his severePreoperative right leg pain is much better. Is pleased with his result thus far. Of note the patient is also possibly been diagnosed with rheumatoid arthritis, He is still awaiting his blood work. He's been on 5 mg of prednisone daily, but plans to come off of this as his hand swelling pain and joint pain is improving. MARYLU ALEJANDRO PA-C [address] [place], [address], [facility] 02/05/2021 11:23:23
--- OUTSIDE RECORDS SUMMARY | 2025-05-17 12:53 | XMS_ITS | Encounter Summary ---
Author Organization [employer] Address [address] [place] [address] Care Team Providers Care Magnet Maker Name Role Phone Harris Álvarez MD Primary Care Provider + [phone] Jackie Prado TECHNICAL SUPPORT DIRECTOR Unavailable + [phone] Encounter Details Date Type Department Care Team (Late st Contact Info) Description 09/29/2020 Transcribed Document [facility] Family Medicine [address] [place] [address] ProviderJerrica MD [address] [place] [address] Social History Tobacco Use Types Packs/Day Years Used Date Smoking Tobacco: Never Assessed Sex and Gender Information Value Date Recorded Sex Assigned at Male 06/20/2024 10:08 AM CDT Legal Sex Male 7:36 AM CLERICAL SPECIALIST Gender Identity Male 06/20/2024 10:08 AM CDT Sexual Orientation Not on file documented as of this encounter Miscellaneous Notes * Cerner Conversion Note - Historical ProviderMD - 09/29/2020 3:41 PM CLERICAL SPECIALIST Initial Discharge Planning Entered On: 09/29/2020 15:43 EST Performed On: 09/29/2020 15:41 EST by RICHIE GLASGOW RN-Deputy [employer] [place] Marshal Initial Assessment I Previously Documented Living Environment : No qualifying data available. Living Situation : Home Patient Lives With : Alone Is the Patient a Caregiver at Home? : No Emergency Contact #1 : n Emergency Contact #1 Phone Number : n Emergency Contact #1 Relationship : n Emergency Contact #2 : n Emergency Contact #2 Phone Number : n Emergency Contact #2 Relationship : n Enter Doctors Name : HARRIS ÁLVAREZ (REF)MD-[facility] Does Patient have PCP Listed? : Yes RICHIE GLASGOW RN-Deputy [place] Marshal - 09/29/2020 15:41 EST Initial Assessment II Sensory and Motor Deficits : Weakness RICHIE GLASGOW RN-Deputy [place] Marshal - 09/29/2020 15:41 EST Discharge Needs I Anticipated Discharge To, CM : Home with home health, nursing home facility Current Home Treatment/Equipment : Current Home Treatment/Equipment No qualifying data available. Post Acute/Home Treatments : Walker Documentation Status Complete : Yes RICHIE GLASGOW RN-Deputy [employer] Marshal - 09/29/2020 15:41 EST Discharge Needs II Professional Skilled Services : Professional Skilled Services No qualifying data available. RICHIE GLASGOW RN-Deputy [place] Marshal - 09/29/2020 15:41 EST Narrative Note Narrative Note : 65yo male pt transferred from [facility] with c/o LBP. MRI--severe canal stenosis. NSY--pt going to OR tomorrow for L2-iliac fusion. DCP dependent upon how pt does with therapy after dc. CM will follow. RICHIE GLASGOW RN-Deputy [place] Marshal - 09/29/2020 15:41 EST Electronically signed by [email or web address], [facility] Conversion Sales Correspondence Clerk Cerner at 03/08/2023 11:41 PM CDT documented in this encounter Plan of Treatment Not on file documented as of this encounter Visit Diagnoses Not on filedocumented in this encounter Care Teams Magnet Maker Relationship Specialty Start Date End Date Harris Álvarez MD [address] [place] [address] [place] [address] PCP - General Adolescent Medicine 01/12/24 Jackie Prado, TECHNICAL SUPPORT DIRECTOR [address] [place] [address] [place] [address] [place], [place] [address] Referring Physician Nurse Practitioner 01/12/24 documented as of this encounter
--- OUTSIDE RECORDS SUMMARY | 2025-05-17 12:53 | XMS_ITS | Encounter Summary ---
Author Organization [employer] Address [address] [place] [address] Care Team Providers Care Briquette Molder Name Role Phone Harris Quinn MD Primary Care Provider + [phone] Jackie Prado CHIEF LIBRARIAN WORK WITH BLIND Unavailable + [phone] Encounter Details Date Type Department Care Team (Late st Contact Info) Description 10/02/2020 Transcribed Document [facility] [place] Medicine [address] [place] [address] ProviderJerrica MD [address] [place], [place] [address] Social History Tobacco Use Types Packs/Day Years Used Date Smoking Tobacco: Never Assessed Sex and Gender Information Value Date Recorded Sex Assigned at Male 06/20/2024 10:08 AM CDT Legal Sex Male 7:36 AM LABORATORY SECRETARY Gender Identity Male 06/20/2024 10:08 AM CDT Sexual Orientation Not on file documented as of this encounter Miscellaneous Notes * Cerner Conversion Note - Historical ProviderMD - 10/02/2020 1:49 PM LABORATORY SECRETARY On Going Discharge Planning Entered On: 10/02/2020 13:51 EST Performed On: 10/02/2020 13:49 EST by RICHIE GLASGOW RN-Test Cell TechnicianSupervisor [employer] Progress Note Discharge Arrangements : Patient Post-Acute Information Patient Name: ELIZA GUARDADO Gender: Male : [birth year] Age: 65 Years No Post-Acute Placement(s) Listed No Post-Acute Service(s) Listed No [place] Referral(s) Listed Discharge Options Discussed with Patient : DME, Home Health, Short term rehabilitation Barriers to Discharge Identified : Clinical Condition of Patient Barriers to Discharge Unresolved : Clinical Condition of Patient Is the Patient Meeting Medical Necessity : Yes RICHIE GLASGOW, RN-Test Cell Technician - 10/02/2020 13:49 EST Narrative Progress Note Narrative Progress Note : FREDDY drain continued today. Met with pt at bedside to discuss DCP. At this time, he declines HH services. He requests FRW and has no DME provider pref. Likely dc home tomorrow 10/03. CM will arrange DME/HH?? at time of dc. CM will continue to follow. Historical Progress Note : Pt is s/p L2-S1 lami and L2-4 PLIF with bilateral pelvic fixation and L2-S1 posterolateral fusion with incidental durotomy. Pt ambulated 220ft this am with PT. Likely dc home tomorrow 10/02 with HH and will obtained FRW for pt as well. CM will continue to follow. RICHIE GLASGOW RN-Test Cell Technician - 10/01/20 15:17:37 Pt going to OR this afternoon for L2-iliac fusion. Met with pt at bedside to discuss DCP. Pt lives alone. He is retired from the [employer]. His daughter and family live about 1/4 mile away. He denies use of AD/HH/Rehab stays. He had been going to [facility] outpatient PT but with no relief. He states it is crowded there and will likely go to a different outpatient PT place if appropriate. CM will continue to follow. RICHIE GLASGOW RN-Test Cell Technician - 09/30/20 11:43:19 RICHIE GLASGOW RN-Test Cell Technician - 10/02/2020 13:49 EST documented in this encounter Plan of Treatment Not on file documented as of this encounter Visit Diagnoses Not on filedocumented in this encounter Care Teams Briquette Molder Relationship Specialty Start Date End Date Harris Quinn MD [address] [place] [address] [place] [address] PCP - General Adolescent Medicine 01/12/24 Jackie Prado, CHIEF LIBRARIAN WORK WITH BLIND [address] [place] [address], [facility] [address], [place], [place] [id number] Referring Physician Nurse Practitioner 01/12/24 documented as of this encounter
--- OUTSIDE RECORDS SUMMARY | 2025-05-17 12:53 | XMS_ITS | Encounter Summary ---
Author Organization [employer] Address [address] [place] [address] Care Team Providers Care Forming Tube Selector Name Role Phone Harris Quinn MD Primary Care Provider + [phone] Jackie Prado FLOW WORKER Unavailable + [phone] Encounter Details Date Type Department Care Team (Late st Contact Info) Description 09/29/2020 Transcribed Document [facility] Neurology - [facility] [address] [address] John Cerda MD [address] [place] [address] Social History Tobacco Use Types Packs/Day Years Used Date Smoking Tobacco: Never Assessed Sex and Gender Information Value Date Recorded Sex Assigned at Male 06/20/2024 10:08 AM CDT Legal Sex Male 7:36 AM CAREER DEVELOPMENT SPECIALIST Gender Identity Male 06/20/2024 10:08 AM CDT Sexual Orientation Not on file documented as of this encounter Miscellaneous Notes * Cerner Conversion Note - John Cerda MD - 09/29/2020 2:42 PM EST Patient: ELIZA GUARDADO Age: 65 years Sex: Male : 1955 Associated Diagnoses: None Author: JENNIFER WRIGHT PA Subjective Seen this morning. Had increased right leg pain early this morning, improved with pain meds. Objective VS/Measurements Vitals Signs (last 24 hrs) Last Charted Minimum Maximum Temp 98.3 (SEP 29:) 97.9 (SEP 29:45) 98.2 (SEP 28 15:00) Mon HR 74 (SEP 29:) 60 (SEP 29 02:30) 89 (SEP 28 18:47) Resp Rate 17 (SEP 29:) 14 (SEP 29:45) 17 (SEP 29:) SBP H 156 (SEP 29:) H 146 (SEP 29 02:30) H 167 (SEP 28 15:00) DBP 64 (SEP 29:) L 56 (SEP 29:45) 68 (SEP 28 18:47) MAP 86 (SEP 29:) 81 (SEP 29:45) 89 (SEP 28 18:47) SpO2 97 (SEP 29:) L 92 (SEP 28 18:47) 98 (SEP 29 06:45) Lying in bed in NAD. 5/5 strength in bilateral LEs. Impression and Plan 65 year old male with previous L4-5 fusion, admitted with severe back and right radicular leg pain. MRI shows right L3-4 and L5-S1 lateral recess and foraminal stenosis. There is significant degeneration at L2-[address] Cerda discussed with him an L2-iliac fusion. Discussed operative plan again with patient. Plan on OR tomorrow. documented in this encounter Plan of Treatment Not on file documented as of this encounter Visit Diagnoses Not on filedocumented in this encounter Care Teams Forming Tube Selector Relationship Specialty Start Date End Date Harris Quinn MD [address] [place] [facility] [address] [place] [address] PCP - General Adolescent Medicine 01/12/24 Jackie Prado, FLOW WORKER [address] [place] [address] [place] [address], [place] [address] Referring Physician Nurse Practitioner 01/12/24 documented as of this encounter
--- OUTSIDE RECORDS SUMMARY | 2025-05-17 12:53 | XMS_ITS | Encounter Summary ---
Author Organization [employer] Address [address] [place] [address] Care Team Providers Care Shaker Operator Name Role Phone Harris Quinn MD Primary Care Provider + [phone] Jackie Prado CLAY SHOP SUPERVISOR Unavailable + [phone] Encounter Details Date Type Department Care Team (Late st Contact Info) Description 09/28/2020 Transcribed Document [facility] [address] [place] [address] Stu Liang MD [address] [place] [address] [address] [place] [address] Social History Tobacco Use Types Packs/Day Years Used Date Smoking Tobacco: Never Assessed Sex and Gender Information Value Date Recorded Sex Assigned at Male 06/20/2024 10:08 AM CDT Legal Sex Male 7:36 AM DENTAL 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 He denies any tingling or weakness. Health Status Allergies: Allergic Reactions (Selected) No Known Allergies Current medications: (Selected) Inpatient Medications Ordered Colace: 100 mg, Oral, BID, PRN: Constipation Fish Oil: 1,000 mg, Oral, Daily Flexeril: 5 mg, Oral, TID, PRN: Spasms Lipitor: 40 mg, Oral, Daily Lovenox: 70 mg, SubCutaneous, [id number] MiraLax: 17 Gram, Oral, Daily, PRN: Constipation [...] capsule: 1 Cap, Oral, Daily, 0 Refill(s) Lipitor 40 mg oral tablet: 1 Tab, Oral, Daily, 0 Refill(s) acetaminophen-HYDROcodone 325 mg-10 mg oral tablet: 1 Tab, Oral, Q6H, PRN: as needed for pain, 0 Refill(s) amLODIPine 5 mg oral tablet: 1 Tab, Oral, Daily, 0 Refill(s) aspirin 81 mg oral delayed release tablet: 1 Tab, Oral, Daily, 30 Tab, 0 Refill(s) bisoprolol-hydroCHLOROthiazide 10 mg-6.25 mg oral [...] mg oral tablet 1 Tab, PRN, Oral, Q6H amLODIPine 5 mg oral tablet 5 mg = 1 Tab, Oral, Daily aspirin 81 mg oral delayed release tablet 81 mg = 1 Tab, Oral, Daily bisoprolol-hydroCHLOROthiazide 10 mg-6.25 mg oral tablet 1 Tab, Oral, Daily diclofenac sodium 75 mg oral delayed release tablet 75 mg = 1 Tab, Oral, BID Fish Oil 1000 mg oral capsule 1,000 mg = 1 Cap, Oral, Daily gabapentin 300 mg oral capsule 300 mg = 1 Cap, Oral, At Bedtime Lipitor 40 mg oral tablet 40 mg = 1 Tab, Oral, Daily olopatadine 0.1% ophthalmic solution 1 Drop, PRN, Eyes Both, BID Problem list: Active Problems (1) At risk for sleep apnea Objective VS/Measurements Vitals Signs (last 24 hrs) Last Charted Minimum Maximum Temp 98.3 (SEP 28:30) 98.3 (SEP 28:30) 98.4 (SEP 27:20) Mon HR 74 (SEP 28:30) 68 (SEP 27:20) 74 (SEP 28:30) Resp Rate 16 (SEP 28:30) 16 (SEP 27:20) 18 (SEP 27 22:00) SBP H 155 (SEP 28:30) H 148 (SEP 27 22:00) H 155 (SEP 28 02:00) DBP 71 (SEP 28:30) L 53 (SEP 27 19:20) 71 (SEP 28:30) MAP 92 (SEP 28:30) 73 (SEP 27 19:20) 92 (SEP 28 06:30) SpO2 98 (SEP 28:30) 98 (SEP 28:30) 98 (SEP 28:) General: Alert and oriented, No acute distress. [...] Results Review Radiology Results (Last 48 hours) [id number] -- 09/27/2020 17:07 MRI Spine Lumbar WO [...] nerve root. There is contact of the O0wfkus root in the lateral recess.L3-L4: There is [...] stenosis. This contacts and displaces the right U7yoypl root. There is mild right foraminal narrowing. [...] interpreted, and dictated by Jaquan Carey MD SEP 28 02:34 136 104 22 / H 247 4.3 27 1.00 \ SEP 28 02:34 \ L 12.6 / 6.3 345 / L 39.7 \ Impression and Plan Assessment and Plan: [...] with the patient this morning and he understands the plan. documented in this encounter Plan of Treatment Not on file documented as of this encounter Visit Diagnoses Not on filedocumented in this encounter Care Teams Shaker Operator Relationship Specialty Start Date End Date Harris Quinn MD [address] [place] [facility] [address] [place] [address] PCP - General Adolescent Medicine 01/12/24 Jackie Prado, CLAY SHOP SUPERVISOR [address] [place] [facility] [address], [place] [address] Referring Physician Nurse Practitioner 01/12/24 documented as of this encounter
--- OUTSIDE RECORDS SUMMARY | 2025-05-17 12:53 | XMS_ITS | Encounter Summary ---
Author Organization [email or web address] Address [address] [place] [address] Care Team Providers Care Energy Consultant Name Role Phone Harris Quinn MD Primary Care Provider + [phone] Jackie Prado BARREL ROLLER Unavailable + [phone] Encounter Details Date Type Department Care Team (Late st Contact Info) Description 09/28/2020 Transcribed Document [facility] Family Medicine [address] [place] [address] ProviderJerrica MD [address] [place] [address] Social History Tobacco Use Types Packs/Day Years Used Date Smoking Tobacco: Never Assessed Sex and Gender Information Value Date Recorded Sex Assigned at Male 06/20/2024 10:08 AM CDT Legal Sex Male 7:36 AM SMASH FIXER Gender Identity Male 06/20/2024 10:08 AM CDT Sexual Orientation Not on file documented as of this encounter Miscellaneous Notes * Cerner Conversion Note - Historical ProviderMD - 09/28/2020 11:24 AM SMASH FIXER Therapy Screen, PT Entered On: 09/28/2020 12:34 EST Performed On: 09/28/2020 11:24 EST by JOS PATEL PT Therapy Screen, PT Medical Chart Reviewed : Yes Person Providing Information : Nurse, Patient Screen Completed : Yes Recommendation for Evaluation, PT : None Recommendations Upon Discharge : None Additional Therapy Screen Comment : Spoke with RN and pt. Both report pt moving independently in his room. Pt reports he is limited somewhat by pain, but has been able to ambulate to/from the bathroom without assistance. He agrees with PTx signing off until after surgery that is planned. JOS PATEL, PT - 09/28/2020 12:26 EST Electronically signed by Bailey, [facility] Conversion Aircraft Engine Mechanic Supervisor Lakisha at 03/08/2023 11:49 PM CDT documented in this encounter Plan of Treatment Not on file documented as of this encounter Visit Diagnoses Not on filedocumented in this encounter Care Teams Energy Consultant Relationship Specialty Start Date End Date Harris Quinn MD [address] [place] [facility] [address] [place] [address] PCP - General Adolescent Medicine 01/12/24 Jackie Prado, BARREL ROLLER [address] [place] [facility] [address], [place] [address] Referring Physician Nurse Practitioner 01/12/24 documented as of this encounter
--- OUTSIDE RECORDS SUMMARY | 2025-05-17 12:53 | XMS_ITS | Encounter Summary ---
Author Organization [employer] Address [address] [place] [address] Care Team Providers Care Newborn Photographer Name Role Phone Harris Álvarez MD Primary Care Provider + [phone] Jackie Prado Medrano CRAFT ARTIST Unavailable + [phone] Encounter Details Date Type Department Care Team (Late st Contact Info) Description 09/28/2020 Transcribed Document [facility] Neu[facility] - [facility] [address] [address] Troy Mcclure MD [address] [place] [address] Social History Tobacco Use Types Packs/Day Years Used Date Smoking Tobacco: Never Assessed Sex and Gender Information Value Date Recorded Sex Assigned at Male 06/20/2024 10:08 AM CDT Legal Sex Male 7:36 AM CURTAIN CUTTER Gender Identity Male 06/20/2024 10:08 AM CDT Sexual Orientation Not on file documented as of this encounter Miscellaneous Notes * Cerner Conversion Note - Troy Mcclure MD - 09/28/2020 10:36 AM EST Patient: ELIZA GUARDADO Age: 65 years Sex: Male : 1955 Associated Diagnoses: None Author: TROY MCCLURE MD-U Basic Information Source of history: Self. Referral source: [facility]LVAREZ (REF[facility]. Chief Complaint Severe back pain, right leg pain and weakness. History of Present Illness Mr. Guardado is a 65-year-old gentleman with a history of [place] ray cage [place] [address] Shaver. He has had chronic low back pain, but over the past few days his pain has been intractable with inability to walk. The pain is mainly down the posterior right leg, with significant numbness and tingling. 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 He was sent to [facility] for further pain control, and MR imaging. Review of Systems Reviewed in admitting H&P. Health Status Allergies: Allergic Reactions (Selected) No Known Allergies, Allergies (1) Active Reaction No Known Allergies None Documented Current medications: (Selected) Inpatient Medications Ordered Colace: 100 mg, Oral, BID, PRN: Constipation Fish Oil: 1,000 mg, Oral, Daily Flexeril: 5 mg, Oral, TID, PRN: Spasms Lipitor: 40 mg, Oral, Daily Lovenox: 70 mg, SubCutaneous, [id number] MiraLax: 17 Gram, Oral, Daily, PRN: Constipation [...] Eyes Both, BID, PRN: Allergies, 0 Refill(s), Medications (18) Active Scheduled: (9) amLODIPine 5 mg tab 5 mg 1 Tab, Oral, Daily aspirin EC 81 mg tab 81 mg 1 Tab, Oral, Daily atorvastatin 40 mg tab 40 mg 1 Tab, Oral, Daily bisoprolol 5 mg tab 10 mg 2 Tab, Oral, Daily dexAMETHasone 4 mg/1 mL inj 4 mg 1 mL, IV Push, Q8H enoxaparin 80 mg/0.8 mL inj 70 mg 0.7 mL, SubCutaneous, [id number] gabapentin 300 mg cap 300 mg 1 Cap, Oral, At Bedtime hydrochlorothiazide 25 mg tab 6.25 mg 0.25 Tab, Oral, Daily omega-3 fish oil 1,000 mg cap 1,000 mg 1 Cap, Oral, Daily Continuous: (0) PRN: (9) acetaminophen 325 mg tab 650 mg 2 Tab, Oral, Q4H cloNIDine 0.1 mg tab 0.1 mg 1 Tab, Oral, Q6H cyclobenzaprine 10 mg tab 5 mg 0.5 Tab, Oral, TID docusate sodium 100 mg cap 100 mg 1 Cap, Oral, BID ketotifen fum 0.025% ophth soln 5 mL 1 Drop, Eyes Both, BID morphine 2 mg/1 ml inj 2 mg 1 mL, IV Push, Q2H ondansetron 4 mg/2 mL inj 4 mg 2 mL, IV Push, Q4H oxyCODONE 5 mg tab 10 mg 2 Tab, Oral, Q4H polyethylene glycol 3350 pwd 17 g pkt 17 Gram 1 Packet, Oral, Daily Problem list: Medical At risk for sleep apnea / IMO [id number] / Confirmed, Active Problems (1) At risk for sleep apnea Histories Past Medical History: No active or resolved past medical history items have been selected or recorded. Family History: No family history items have been selected or recorded. Procedure history: No active procedure history items have been selected or recorded. Social History Social & Psychosocial Habits No Data Available . Physical Examination VS/Measurements Vitals Signs (last 24 hrs) Last Charted Minimum Maximum Temp 98.3 (SEP 28:30) 98.3 (SEP 28:30) 98.4 (SEP 27 19:20) Mon HR 74 (SEP 28:30) 68 (SEP 27 19:20) 74 (SEP 28:30) Resp Rate 16 (SEP 28:30) 16 (SEP 27 19:20) 18 (SEP 27 22:00) SBP H 155 (SEP 28:30) H 148 (SEP 27 22:00) H 155 (SEP 28 02:00) DBP 71 (SEP 28:30) L 53 (SEP 27:20) 71 (SEP 28:30) MAP 92 (SEP 28:30) 73 (SEP 27 19:20) 92 (SEP 28 06:30) SpO2 98 (SEP 28:30) 98 (SEP 28 06:30) 98 (SEP 28 06:30) General: NAD HEENT: Normal alert & oriented x3 perrl, eom intact face symmetric, V1-3 intact to LT bilaterally hearing grossly intact bilaterally motor: Grossly motor intact sensation: intact to light tough bilaterally UE and LE toes down going bilaterally Chest: Clear with no wheezes. Heart: Regular rate and rhythm with no rubs gallops or murmur. Abdomen: Soft and nontender. and rectal: Deferred. Extremities: No cyanosis clubbing or edema. Skin: Unremarkable. Review / Management Results review: Labs (Last four charted values) WBC 6.3 (SEP 28) HB L 12.6 (SEP 28) HCT L 39.7 (SEP 28) Plt 345 (SEP 28) Na 136 (SEP 28) L 135 (SEP 27) K 4.3 (SEP 28) 4.2 (SEP 27) Cl 104 (SEP 28) L 101 (SEP 27) CO2 27 (SEP 28) 30 (SEP 27) BUN 22 (SEP 28) 21 (SEP 27) Cr 1.00 (SEP 28) 1.00 (SEP 27) Glu R H 247 (SEP 28) H 265 (SEP 27) Ca 9.6 (SEP 28) 9.6 (SEP 27) . Impression and Plan Mr. 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 He has a small right L3 pedicle with significant degeneration at the L2-3 level also. At this point, in order to solve his problem I am recommending an L2 to iliac fusion. This will reestablish to space height and decompress the exiting nerve roots at L3-4 and L5-S1 on the right. I described this procedure in great detail to him. We discussed the risks and benefits of the operation. He understands that his back will be more stiff, but there is significant loss of flexibility at this point already, due to his previous fusion and significant arthritic changes. Specific risks of the surgery that we discussed included general anesthesia, infection, hardware failure, pseudoarthrosis, spinal fluid leakage, nerve damage and other unforeseen events. He is currently been diagnosed with a right lower extremity DVT. I will speak with the hospitalist about holding his Lovenox during surgery. We could certainly compromise on continuing the aspirin. This point, we will continue steroids and pain management. If we can get his pain under control tomorrow there would be the option of discharge and scheduling this on an outpatient basis in the next couple weeks. documented in this encounter Plan of Treatment Not on file documented as of this encounter Visit Diagnoses Not on filedocumented in this encounter Care Teams Newborn Photographer Relationship Specialty Start Date End Date Harris Álvarez MD [address] [place] [facility] [address] [place] [address] PCP - General Adolescent Medicine 01/12/24 Jackie Prado APRN [address] [place] [address] [place] [address] Referring Physician Nurse Practitioner 01/12/24 documented as of this encounter
--- OUTSIDE RECORDS SUMMARY | 2025-05-17 12:53 | XMS_ITS | Encounter Summary ---
Author Organization [employer] Address [address] [place] [address] Care Team Providers Care Blending Operator Name Role Phone Harris Quinn MD Primary Care Provider + [phone] Jackie Prado PHARMACOVIGILANCE SPECIALIST Unavailable + [phone] Encounter Details Date Type Department Care Team (Late st Contact Info) Description 10/01/2020 Transcribed Document [facility] [place] [address] [place] [address] ProviderJerrica MD [address] [place], [place] [address] Social History Tobacco Use Types Packs/Day Years Used Date Smoking Tobacco: Never Assessed Sex and Gender Information Value Date Recorded Sex Assigned at Male 06/20/2024 10:08 AM CDT Legal Sex Male 7:36 AM YARN TESTER Gender Identity Male 06/20/2024 10:08 AM CDT Sexual Orientation Not on file documented as of this encounter Miscellaneous Notes * Cerner Conversion Note - Historical ProviderMD - 10/01/2020 3:15 PM YARN TESTER On Going Discharge Planning Entered On: 10/01/2020 15:17 EST Performed On: 10/01/2020 15:15 EST by RICHIE GLASGOW RN-Self Rising Flour MixerProduct Designer Progress Note Discharge Arrangements : Patient Post-Acute Information Patient Name: ELIZA GUARDADO Gender: Male : [birth year] Age: 65 Years No Post-Acute Placement(s) Listed No Post-Acute Service(s) Listed No [place] Referral(s) Listed Discharge Options Discussed with Patient : DME, Home Health, Short term rehabilitation Barriers to Discharge Identified : Clinical Condition of Patient Barriers to Discharge Unresolved : Clinical Condition of Patient Does the Patient have a Floor to SNF Benefit? : No Is the Patient Meeting Medical Necessity : Yes RICHIE GLASGOW RN-Self Rising Flour Mixer - 10/01/2020 15:15 EST Narrative Progress Note Narrative Progress Note : Pt is s/p L2-S1 lami and L2-4 PLIF with bilateral pelvic fixation and L2-S1 posterolateral fusion with incidental durotomy. Pt ambulated 220ft this am with PT. Likely dc home tomorrow 10/02 with HH and will obtained FRW for pt as well. CM will continue to follow. Historical Progress Note : Pt going to OR this afternoon for L2-iliac fusion. Met with pt at bedside to discuss DCP. Pt lives alone. He is retired from the [employer]. His daughter and family live about 1/4 mile away. He denies use of AD/HH/Rehab stays. He had been going to [facility] outpatient PT but with no relief. He states it is crowded there and will likely go to a different outpatient PT place if appropriate. CM will continue to follow. RICHIE GLASGOW RN-Self Rising Flour Mixer - 09/30/20 11:43:19 RICHIE GLASGOW RN-Self Rising Flour Mixer - 10/01/2020 15:15 EST documented in this encounter Plan of Treatment Not on file documented as of this encounter Visit Diagnoses Not on filedocumented in this encounter Care Teams Blending Operator Relationship Specialty Start Date End Date Harris Quinn MD [address] [place] [address] [place] [address] PCP - General Adolescent Medicine 01/12/24 Jackie Prado, PHARMACOVIGILANCE SPECIALIST [address] [place] [address], [place] [address] Referring Physician Nurse Practitioner 01/12/24 documented as of this encounter
--- OUTSIDE RECORDS SUMMARY | 2025-05-17 12:53 | XMS_ITS | Encounter Summary ---
Author Organization [employer] Address [address] [place] [address] Care Team Providers Care Blast Furnace Keeper Helper Name Role Phone Harris Quinn MD Primary Care Provider + [phone] Jackie Prado PASS WORKER Unavailable + [phone] Encounter Details Date Type Department Care Team (Late st Contact Info) Description 09/27/2020 Transcribed Document [facility] [place] Family Medicine [address] [place] [address] ProviderJerrica MD [address] [place] [address] Social History Tobacco Use Types Packs/Day Years Used Date Smoking Tobacco: Never Assessed Sex and Gender Information Value Date Recorded Sex Assigned at Male 06/20/2024 10:08 AM CDT Legal Sex Male 7:36 AM SLIVER FORMER Gender Identity Male 06/20/2024 10:08 AM CDT Sexual Orientation Not on file documented as of this encounter Miscellaneous Notes * Cerner Conversion Note - Historical ProviderMD - 09/27/2020 5:26 PM SLIVER FORMER Pain Assessment Entered On: 09/30/2020 6:28 EST Performed On: 09/30/2020 4:30 EST by Armando Armenta Rn Intervention Information: oxyCODONE Performed by Armando Armenta Rn on 09/30/2020 03:30:00 EST oxyCODONE,10mg Oral,Pain (Moderate 4-6) Pain Assessment Pain Assessment : Follow-up assessment Pain Scale Used : 0-10 Scale Location : Leg, right Pain Worsened by : Movement Pain Improved by : Medication Armando Armenta Rn - 09/30/2020 6:28 EST Pain Scale Intensity : 2 Armando Armenta Rn - 09/30/2020 6:28 EST Image 4 - Images currently included in the form version of this document have not been included in the text rendition version of the form. documented in this encounter Plan of Treatment Not on file documented as of this encounter Visit Diagnoses Not on filedocumented in this encounter Care Teams Blast Furnace Keeper Helper Relationship Specialty Start Date End Date Harris Quinn MD [address] [place] [facility] [address] [place] [address] PCP - General Adolescent Medicine 01/12/24 Jackie Prado, LEORA [address] [place] [address], [place] [address] Referring Physician Nurse Practitioner 01/12/24 documented as of this encounter
--- OUTSIDE RECORDS SUMMARY | 2025-05-17 12:53 | XMS_ITS | Encounter Summary ---
Author Organization [employer] Address [address] [place] [address] Care Team Providers Care Fixing Carpenter Name Role Phone Harris Quinn MD Primary Care Provider + [phone] Jackie Prado SURFACE TO AIR WEAPONS OFFICER Unavailable + [phone] Encounter Details Date Type Department Care Team (Late st Contact Info) Description 10/02/2020 Transcribed Document [facility] Family Medicine [address] [place] [address] ProviderJerrica MD [address] [place] [address] Social History Tobacco Use Types Packs/Day Years Used Date Smoking Tobacco: Never Assessed Sex and Gender Information Value Date Recorded Sex Assigned at Male 06/20/2024 10:08 AM CDT Legal Sex Male 7:36 AM SHIM PLUG CUTTER Gender Identity Male 06/20/2024 10:08 AM CDT Sexual Orientation Not on file documented as of this encounter Miscellaneous Notes * Cerner Conversion Note - Historical ProviderMD - 10/02/2020 2:00 AM SHIM PLUG CUTTER Pain Assessment Entered On: 10/02/2020 3:37 EST Performed On: 10/02/2020 3:41 EST by Armando Armenta Rn Intervention Information: acetaminophen Performed by Armando Armenta, Rn on 10/02/2020 02:41:00 EST acetaminophen,650mg Oral Pain Assessment Pain Scale Goal : 2 Armando Armenta Rn - 10/02/2020 3:37 EST Electronically signed by Bailey [facility] Conversion Brand Protection Manager Cerheidi at 03/08/2023 11:29 PM CDT documented in this encounter Plan of Treatment Not on file documented as of this encounter Visit Diagnoses Not on filedocumented in this encounter Care Teams Fixing Carpenter Relationship Specialty Start Date End Date Harris Quinn MD [address] [place] [facility] [address] [place] [address] PCP - General Adolescent Medicine 01/12/24 Jackie Prado, SURFACE TO AIR WEAPONS OFFICER [address] [place] [facility] [address], [place] [address] Referring Physician Nurse Practitioner 01/12/24 documented as of this encounter
--- NOTE | 2025-05-17 12:54 | MR_ITS ---
FINAL REPORT TECHNIQUE: Multiplanar MR, without and with gadolinium enhancement CLINICAL HISTORY: LUMBARGO W SCIATICA/OTHER CHRONIC PAIN bilateral leg pain back surgery 2020 COMPARISON: None FINDINGS: There are extensive postoperative changes with spinal fixation extending from L2 through S1 causing severe artifact limiting assessment of the marrow. Alignment is grossly normal. T12-L1: Minimal annular disc bulge. L1-2: Borderline central canal stenosis. Hardware artifact limits exam. L2-3: Status post laminectomy without canal stenosis. L3-4: Status post laminectomy without canal stenosis. Mild bilateral neural foraminal narrowing. L4-5: Status post laminectomy without canal stenosis. Mild neural foraminal narrowing. L5-S1: Bilateral hypertrophic changes from facets causing borderline central canal stenosis. Status post laminectomy. Mild neural foraminal narrowing. IMPRESSION: Extensive postoperative changes. Mild canal stenosis at L1-2 level with remaining operative levels showing no significant canal stenosis. Reviewed, Interpreted and Dictated by Aury Craig MD Transcribed by Alexandra Mercado Authenticated and [facility]
--- OUTSIDE RECORDS SUMMARY | 2025-05-17 12:54 | XMS_ITS | Encounter Summary ---
Author Organization [employer] Address [address] [place] [address] Care Team Providers Care Digital Marketing Analyst Name Role Phone Harris Quinn MD Primary Care Provider + [phone] Jackie Prado AIR BRUSH DECORATOR Unavailable + [phone] Encounter Details Date Type Department Care Team (Late st Contact Info) Description 09/30/2020 Transcribed Document [facility] [place] [address] [place] [address] ProviderJerrica MD [address] [place] [address] Social History Tobacco Use Types Packs/Day Years Used Date Smoking Tobacco: Never Assessed Sex and Gender Information Value Date Recorded Sex Assigned at Male 06/20/2024 10:08 AM CDT Legal Sex Male 7:36 AM DESKTOP SPECIALIST Gender Identity Male 06/20/2024 10:08 AM CDT Sexual Orientation Not on file documented as of this encounter Miscellaneous Notes * Cerner Conversion Note - Historical ProviderMD - 09/30/2020 10:00 PM DESKTOP SPECIALIST Pain Assessment Entered On: 10/01/2020 2:35 EST Performed On: 09/30/2020 23:06 EST by Armando Armenta Rn Intervention Information: acetaminophen Performed by Armando Armenta Rn on 09/30/2020 22:06:00 EST acetaminophen,650mg Oral Pain Assessment Pain Scale Goal : 2 Armando Armenta Rn - 10/01/2020 2:35 EST Electronically signed by Bailey [facility] Conversion Market Research Executive Cerner at 03/08/2023 11:26 PM CDT documented in this encounter Plan of Treatment Not on file documented as of this encounter Visit Diagnoses Not on filedocumented in this encounter Care Teams Digital Marketing Analyst Relationship Specialty Start Date End Date Harris Quinn MD [address] [place] [facility] [address] [place] [address] PCP - General Adolescent Medicine 01/12/24 Jackie Prado, AIR BRUSH DECORATOR [address] [place] [facility] [address], [place] [address] Referring Physician Nurse Practitioner 01/12/24 documented as of this encounter
--- OUTSIDE RECORDS SUMMARY | 2025-05-17 12:54 | XMS_ITS | Referral Summary ---
Author Organization [employer] [facility] [employer] Address [address] [place] [address] Care Team Providers Care Pump Room Operator Name Role Phone Harris Quinn MD Primary Care Provider + [phone] Jackie Prado J2EE SOFTWARE ENGINEER Unavailable + [phone] Allergies No known active allergies Medications * This document contains information received from the source organization and may not represent a complete record from that organization. amLODIPine (NORVASC) 5 MG tablet Take 1 tablet (5 mg total) by mouth daily. 4 Active Eliquis 5 MG tablet Take 1 tablet (5 mg total) by mouth 2 (two) times daily. 4 Active atorvastatin (LIPITOR) 80 MG tablet Take 0.5 tablets (40 mg total) by mouth daily. 4 Active folic acid (FOLVITE) 1 MG tablet Take 1 tablet (1,000 mcg total) by mouth daily. 4 Active gabapentin (NEURONTIN) 300 MG capsule Take 1 capsule (300 mg total) by mouth nightly. 4 Active HYDROcodone-sandra taminophen (NORCO 5-325) 5-325 mg per tablet Take 2 tablets by mouth every 6 (six) hours. 4 Active methotrexate 2.5 MG tablet Take 8 tablets (20 mg total) by mouth once a week. 4 Active calcium carbonate-vitam in D3 (OSCAL) 250 mg-3.125 mcg (125 unit) Tab per tablet Take 1 tablet by mouth daily. Active aspirin 81 MG chewable tablet Take 1 tablet (81 mg total) by mouth daily. Active omega 6-cuu-vcw-fish oil capsule Take 1 capsule (1,000 mg total) by mouth daily. Active famotidine (PEPCID) 10 MG tablet Take 1 tablet (10 mg total) by mouth 2 (two) times daily. Active losartan-hydroc hlorothiazide (HYZAAR) 100-12.5 mg per tablet Take 1 tablet by mouth daily. Active loratadine 10 mg Cap Take by mouth. Activ e LORazepam (ATIVAN) 1 MG tablet Take 1 tab an hour before MRI and can repeat 15 minutes before MRI. 2 tablet 4 Active Additional Information Patient not taking.Reported on 09/27/2024 predniSONE (DELTASONE) 20 MG tablet Take by mouth. 4 Active bisoprolol (ZEBETA) 5 MG tablet Take 1 tablet (5 mg total) by mouth daily. 4 Active losartan (COZAAR) 100 MG tablet Take 1 tablet (100 mg total) by mouth daily. 4 Active cyanocobalamin (VITAMIN B-12) 1,000 mcg/mL injection Take 1 dose every week for 8 weeks then once monthly. 12 mL 1 4 Active syringe with needle (BD Luer-Magdalena Syringe) 3 mL 25 gauge x 1 syrg With b12. 12 each 1 4 Active pyridoxine, vitamin B6, (vitamin B-6) 50 MG tablet Take 1 tablet (50 mg total) by mouth daily. 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 Gender Identity Male 06/20/2024 10:08 AM CDT Sexual Orientation Not on file Last Filed Vital Signs Vital Sign Reading Time Taken Comments Blood Pressure 124/60 09/27/2024 11:02 AM EST Pulse 68 09/27/2024 11:02 AM EST Temperature - - Respiratory Rate 16 06/20/2024 11:34 AM EDT Oxygen Saturation 98% 09/27/2024 11:02 AM EST Inhaled Oxygen Concentration - - Weight 76.7 kg (169 lb) 09/27/2024 11:02 AM EST Height 165.1 cm (5' 5 ) 09/27/2024 11:02 AM EST Body Mass Index 28.12 09/27/2024 11:02 AM EST Plan of Treatment Not on file Insurance [facility] [place]OWN [id number] MEDICARE PART A B /[facility] Member Subscriber Plan / Payer (Ef fective 2019-Present) Name:Eliza Lambert Relation to Subscriber:Self Name:Eliza Lambert Payer ID:Not on file Group ID:[id number] Type:Not on file Address: [facility] [id number] [place] [id number] Care Teams Pump Room Operator Relationship Specialty Start Date End Date Harris Quinn MD [address] [place] [address] PCP - General Adolescent Medicine 01/12/24 Jackie Prado, J2EE SOFTWARE ENGINEER [address], [place] [address] Referring Physician Nurse Practitioner 01/12/24
--- OUTSIDE RECORDS SUMMARY | 2025-05-17 12:54 | XMS_ITS | Encounter Summary ---
Author Organization [employer] [facility] [employer] Address [address] [place] [address] Care Team Providers Care Life Scientist Name Role Phone Harris Quinn MD Primary Care Provider + [phone] Jackie Prado AUTO TRANSMISSION SPECIALIST Unavailable + [phone] Encounter Details Date Type Department Care Team (Late st Contact Info) Description 09/30/2020 Transcribed Document [facility] Family Medicine [address] [place] [address] ProviderJerrica MD [address] [place] [address] Social History Tobacco Use Types Packs/Day Years Used Date Smoking Tobacco: Never Assessed Sex and Gender Information Value Date Recorded Sex Assigned at Male 06/20/2024 10:08 AM CDT Legal Sex 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 Provided supportive presence. KALYAN VIEIRA - 09/30/2020 8:48 EST Electronically signed by [facility] Conversion Line Staker Cerner at 03/08/2023 11:30 PM CDT documented in this encounter Plan of Treatment Not on file documented as of this encounter Visit Diagnoses Not on filedocumented in this encounter Care Teams Life Scientist Relationship Specialty Start Date End Date Harris Quinn MD [address] [facility] [address] [place] [address] PCP - General Adolescent Medicine 01/12/24 Jackie Prado, AUTO TRANSMISSION SPECIALIST [address] [place] [facility] [address], [place] [address] Referring Physician Nurse Practitioner 01/12/24 documented as of this encounter
--- OUTSIDE RECORDS SUMMARY | 2025-05-17 12:54 | XMS_ITS | Encounter Summary ---
Author Organization [employer] Address [address] [place] [address] Care Team Providers Care Commodity Loan Clerk Name Role Phone Harris Quinn MD Primary Care Provider + [phone] Jackie Prado ANATOMY AND PHYSIOLOGY INSTRUCTOR Unavailable + [phone] Encounter Details Date Type Department Care Team (Late st Contact Info) Description 09/30/2020 Transcribed Document [facility] Family Medicine [address] [place] [address] ProviderJerrica MD [address] [place] [address] Social History Tobacco Use Types Packs/Day Years Used Date Smoking Tobacco: Never Assessed Sex and Gender Information Value Date Recorded Sex Assigned at Male 06/20/2024 10:08 AM CDT Legal Sex Male 7:36 AM HEAD OF DRAMA Gender Identity Male 06/20/2024 10:08 AM CDT Sexual Orientation Not on file documented as of this encounter Miscellaneous Notes * Cerner Conversion Note - Historical ProviderMD - 09/30/2020 5:03 PM HEAD OF DRAMA [facility] Main OR IntraOp Summary Primary Physician: TROY MCCLURE MD-SNU Finalized Date/Time: 10/02/20 07:54:38 Pt. Name: ELIZA LAMBERT D.O.B./Sex: 1955 Male Med Rec #: [id number] Physician: HERMINIA KNOWLES MD-INT Financial #: [id number] Pt. Type: I Room/Bed: [facility]/1 Admit/Disch: 09/29/20 14:34:00 - Institution: [facility] IntraOp Case Attendance Entry 1 Entry 2 Entry 3 Case Attendee REN, NIXON GARCIA LAURIE, MD-CHRISTIAN NIEVES APRN MD-LUISA Role Performed Surgeon/Proceduralist, Anesthesiologist of BISQUE BRUSHER/Nurse Manufacturers Service Representative First Record Time In 09/30/20 16:16:00 09/30/20 16:16:00 09/30/20 16:16:00 Time Out 09/30/20 20:05:00 09/30/20 20:05:00 09/30/20 17:44:00 Procedure Lumbar Fusion Posterior Lumbar Fusion Posterior Lumbar Fusion Posterior 3 Level 3 Level 3 Level Other Attendee Superficial Wound Closed By: Last Modified By: Vanesa Webster Rn Parker, Gwendolyn, Rn Parker, Gwendolyn, Rn 09/30/20 20:08:20 09/30/20 20:08:20 09/30/20 20:08:20 Entry 4 Entry 5 Entry 6 Case Attendee Vanesa Webster Rn LONG, PAULA R., JONATHAN YUEN RN Role Performed Design Supervisor, First Scrub, First Design Supervisor, Second Time In 09/30/20 16:16:00 09/30/20 16:16:00 09/30/20 16:16:00 Time Out 09/30/20 20:05:00 09/30/20 18:37:00 09/30/20 16:40:00 Procedure Lumbar Fusion Posterior Lumbar Fusion Posterior Lumbar Fusion Posterior 3 Level 3 Level 3 Level Other Attendee Superficial Wound Closed By: Last Modified By: Vanesa Webster Rn Parker, Gwendolyn, Rn Parker, Gwendolyn, Rn 09/30/20 20:08:20 09/30/20 20:08:20 09/30/20 20:08:20 Entry 7 Entry 8 Entry 9 Case Attendee Aysha Morel Hensley, Karen, SCHNELLE, JENNIFER, ALEC Hang Gliding Instructor Diagnostic Vacuum Truck Driver Role Performed Rock Wool Insulator Rock Wool Insulator Scrub, Second Time In 09/30/20 16:48:00 09/30/20 16:16:00 09/30/20 16:16:00 Time Out 09/30/20 20:05:00 09/30/20 20:05:00 09/30/20 20:05:00 Procedure Lumbar Fusion Posterior Lumbar Fusion Posterior Lumbar Fusion Posterior 3 Level 3 Level 3 Level Other Attendee Superficial Wound Closed By: Last Modified By: Vanesa Webster Rn Parker, Gwendolyn, Rn Parker, Gwendolyn, Rn 09/30/20 20:08:20 09/30/20 20:08:20 09/30/20 20:08:20 Entry 10 Entry 11 Entry 12 Case Attendee Sushma Maldonado, MEKA CRAFT, SC ARI MCCANN MD-ANS TECH Role Performed Design Supervisor, Second Scrub, First Anesthesiologist Time In 09/30/20 17:20:00 09/30/20 18:30:00 09/30/20 17:44:00 Time Out 09/30/20 17:35:00 09/30/20 20:05:00 09/30/20 20:05:00 Procedure Lumbar Fusion Posterior Lumbar Fusion Posterior Lumbar Fusion Posterior 3 Level 3 Level 3 Level Other Attendee RELIEF TRAVELER Superficial Wound Closed By: Last Modified By: Vanesa Webster Rn Parker, Gwendolyn, Rn Parker, Gwendolyn, Rn 09/30/20 20:08:20 09/30/20 20:08:20 09/30/20 20:08:20 [facility] IntraOp Case Attendance Audit 09/30/20 20:08:20 Mergers And Acquisitions Consultant: VALERY Modifier: CHAVEZOLYKALEB 1 <+> Time Out 1 <*> Procedure Lumbar Fusion Posterior 3 Level 2 <+> Time Out 2 <*> Procedure Lumbar Fusion Posterior 3 Level 3 <*> Procedure Lumbar Fusion Posterior 3 Level 4 <+> Time Out 4 <*> Procedure Lumbar Fusion Posterior 3 Level 5 <*> Procedure Lumbar Fusion Posterior 3 Level 6 <*> Procedure Lumbar Fusion Posterior 3 Level 7 <+> Time Out 7 <*> Procedure Lumbar Fusion Posterior 3 Level 8 <+> Time Out 8 <*> Procedure Lumbar Fusion Posterior 3 Level 9 <+> Time Out 9 <*> Procedure Lumbar Fusion Posterior 3 Level 10 <*> Procedure Lumbar Fusion Posterior 3 Level 11 <+> Time Out 11 <*> Procedure Lumbar Fusion Posterior 3 Level 12 <+> Time Out 12 <*> Procedure Lumbar Fusion Posterior 3 Level 09/30/20 19:48:33 Mergers And Acquisitions Consultant: VINITAARKER Modifier: YANAENDOLYNPARKER 3 <+> Time Out 3 <*> Procedure Lumbar Fusion Posterior 3 Level <+> 12 Case Attendee <+> 12 Role Performed <+> 12 Time In <+> 12 Procedure 09/30/20 19:02:23 Mergers And Acquisitions Consultant: VINITAARKVALENTINE Modifier: YANAENDOLYNPARKER 10 <+> Time Out 10 <*> Procedure Lumbar Fusion Posterior 3 Level 09/30/20 18:52:49 Mergers And Acquisitions Consultant: DENNISNPARKER Modifier: YANAENDOLYNPARKER 5 <+> Time Out 5 <*> Procedure Lumbar Fusion Posterior 3 Level <+> 11 Case Attendee <+> 11 Role Performed <+> 11 Time In <+> 11 Procedure <+> 11 Other Attendee 09/30/20 17:52:28 Mergers And Acquisitions Consultant: VINITAARKER Modifier: YANAENDOLYNPARKER <+> 1 Procedure 2 <*> Procedure Lumbar Fusion Posterior 3 Level 3 <*> Procedure Lumbar Fusion Posterior 3 Level 4 <*> Procedure Lumbar Fusion Posterior 3 Level 5 <*> Procedure Lumbar Fusion Posterior 3 Level 6 <*> Procedure Lumbar Fusion Posterior 3 Level 7 <*> Procedure Lumbar Fusion Posterior 3 Level 8 <*> Procedure Lumbar Fusion Posterior 3 Level 9 <*> Procedure Lumbar Fusion Posterior 3 Level 10 <*> Procedure Lumbar Fusion Posterior 3 Level 09/30/20 17:22:03 Mergers And Acquisitions Consultant: DENNISNPARKER Modifier: YANAENDOLYNPARKER 2 <*> Procedure Lumbar Fusion Posterior 3 Level 3 <*> Procedure Lumbar Fusion Posterior 3 Level 4 <*> Procedure Lumbar Fusion Posterior 3 Level 5 <*> Procedure Lumbar Fusion Posterior 3 Level 6 <*> Procedure Lumbar Fusion Posterior 3 Level 7 <*> Procedure Lumbar Fusion Posterior 3 Level 8 <*> Procedure Lumbar Fusion Posterior 3 Level 9 <+> Time In 9 <*> Procedure Lumbar Fusion Posterior 3 Level <+> 10 Case Attendee <+> 10 Role Performed <+> 10 Time In <+> 10 Procedure <+> 10 Other Attendee 09/30/20 17:11:51 Mergers And Acquisitions Consultant: VINITAARKVALENTINE Modifier: YANAENDOLYNPARKER 2 <*> Procedure Lumbar Fusion Posterior 3 Level 3 <*> Procedure Lumbar Fusion Posterior 3 Level 4 <*> Procedure Lumbar Fusion Posterior 3 Level 5 <*> Procedure Lumbar Fusion Posterior 3 Level 6 <*> Procedure Lumbar Fusion Posterior 3 Level 7 <*> Procedure Lumbar Fusion Posterior 3 Level 8 <+> Time In 8 <*> Procedure Lumbar Fusion Posterior 3 Level <+> 9 Case Attendee <+> 9 Role Performed <+> 9 Procedure 09/30/20 17:08:40 Mergers And Acquisitions Consultant: VALERY Modifier: VALERY 2 <+> Time In 2 <*> Procedure Lumbar Fusion Posterior 3 Level 3 <+> Time In 3 <*> Procedure Lumbar Fusion Posterior 3 Level 4 <+> Time In 4 <*> Procedure Lumbar Fusion Posterior 3 Level 5 <+> Time In 5 <*> Procedure Lumbar Fusion Posterior 3 Level 6 <+> Time In 6 <+> Time Out 6 <*> Procedure Lumbar Fusion Posterior 3 Level <+> 7 Case Attendee <+> 7 Role Performed <+> 7 Time In <+> 7 Procedure <+> 8 Case Attendee <+> 8 Role Performed <+> 8 Procedure [facility] IntraOp Case Times Entry 1 Patient In Room Time 09/30/20 16:16:00 Out Room Time 09/30/20 20:05:00 Anesthesia Start Time 09/30/20 16:16:00 Stop Time 09/30/20 20:05:00 Surgery / Procedure Times Start Time 09/30/20 17:03:00 Stop Time 09/30/20 19:53:00 Last Modified By: Vanesa Webster Rn 09/30/20 20:08:18 [facility] IntraOp Case Times Audit 09/30/20 20:08:18 Mergers And Acquisitions Consultant: VALERY Modifier: VALERY <+> 1 Out Room Time <+> 1 Stop Time <+> 1 Stop Time 09/30/20 17:10:31 Mergers And Acquisitions Consultant: VALERY Modifier: VALERY <+> 1 Start Time [facility] IntraOp Cautery Entry 1 ESU Identification Cautery Type Monopolar ESU ID Number [id number] ID Type Hospital Number Cautery Settings Cut Setting 8 Coag Setting 50 ESU Grounding Pad Ground Pad Type Adult Grounding Pad Site Right thigh Grounding Pad Vanesa Webster Rn Applied By Grounding Pad Site Warm, dry and intact Skin Condition Before Cautery Grounding Pad Site Warm, dry and intact Skin Condition After Cautery Last Modified By: Vanesa Webster Rn 09/30/20 17:09:48 [facility] IntraOp Communication Entry 1 Communication To Family/Significant other Comment START Communication By Vanesa Webster Rn Date and Time 09/30/20 17:03:00 Last Modified By: Vanesa Webster Rn 09/30/20 17:10:13 [facility] IntraOp Counts Verification Entry 1 Procedure Lumbar Fusion Posterior 3 Level Count Info Count Type Sponge, Sharps, Miscellaneous Counts Verification Baseline/pre-procedure Sequence Counts Performed By Count Performed By PILO ALEX[address] (Scrub) Count Performed By Vanesa Webster Rn (RN) Last Modified By: Vanesa Webster Rn 09/30/20 16:23:20 [facility] IntraOp Counts Final Entry 1 Procedure Lumbar Fusion Posterior 3 Level Final Count Info Count Type Sponge, Sharps, Miscellaneous Counts Verification Skin Closure/end of Sequence procedure Count Results Correct, surgeon notified Counts Performed By Count Performed By MEKA ALY SC RUB (Scrub) TECH Count Performed By Vanesa Webster Rn (RN) Last Modified By: Vanesa Webster Rn 09/30/20 19:32:13 [facility] IntraOp Counts Final Audit 09/30/20 19:32:13 M[employer]ers And Acquisitions Consultant: VALERY Modifier: CHAVEZOLYNPARKER 1 <*> Procedure Lumbar Fusion Posterior 3 Level 1 <+> Count Performed By (Scrub) 1 <+> Count Performed By (RN) [facility] IntraOp Departure from OR Entry 1 Integumentary Assessment Integumentary WDL with patient Assessment WDL specific variances Patient's Normal OPSITE Integumentary Variance(s) Transfer/Handoff Transfer to PACU Phase I Handoff Method Bedside/Face to face, Phone call Post-op Transport Sulma/Khalif Via Patient Transport Vanesa Webster Rn, Accompanied by CHRISTIAN OLIVER APRN Last Modified By: Vanesa Webster Rn 09/30/20 17:12:37 [facility] IntraOp Drains and Tubes Entry 1 Device Type Angelo Altman round drain Size 10 Drain/Tube Activity Inserted Drain/Tube Suction Bulb Drain/Tube Drainage Sanguineous Tube Dressing Dry, Intact Condition Surgical Drains and Continuous [place] Tubes Irrigation Last Modified By: Vanesa Webster Rn 09/30/20 19:50:00 [facility] IntraOp Dressing and Packing Entry 1 Type Dressing Location OPSITE Applied By TROY MCCLURE MD-U Last Modified By: Vanesa Webster Rn 09/30/20 17:13:17 [facility] IntraOp Fire Risk Assessment Entry 1 Fire Info Surgical Site or 0- No Incision Above the Xyphoid Open O2 Source 0- No (Mask or Cannula) Available Ignition 1- Yes (ESU, Laser, Light Source) Fire Risk 1 Assessment Score Fire Score Fire Risk Yes Assessment Complete Fire Risk Vanesa Webster Rn Assessment Verified By Fire Risk 09/30/20 16:16:00 Assessment Verified Date/Time Fire Risk Standard Fire Yes Safety Precautions Followed Last Modified By: Vanesa Webster Rn 09/30/20 17:13:53 [facility] IntraOp General Case Bobbin Drier 1 Case Information OR OR 10 [facility] Case Level 1 Room Verified Yes Wound Class I - Clean Specialty SN Neurosurgery Anesthesia Type General ASA Class 3 Diagnosis Preop Diagnosis CHRONIC EMBOLISM AND THROMBOSIS OUNSPECIFIED VEIN Postop Same As Preop No Postop Diagnosis CHRONIC EMBOLISM AND THROMBOSIS OUNSPECIFIED VEIN SEE SURGEON POST OP NOTES Last Modified By: Vanesa Webster Rn 09/30/20 17:17:05 [facility] IntraOp General Case Data Audit 09/30/20 17:17:05 Mergers And Acquisitions Consultant: VALERY Modifier: YANAENDOLYNPARKER <+> 1 Postop Same As Preop <+> 1 Postop Diagnosis 09/30/20 17:16:40 Mergers And Acquisitions Consultant: YANAENDOLYNPARKER Modifier: GWENDOLYNPARKER 1 <*> Preop Diagnosis CHRONIC EMBOLISM AND THROMBOSIS OUNSPECIFIED VEIN 09/30/20 17:16:21 Mergers And Acquisitions Consultant: YANAENDOLYNPARKER Modifier: GWENDOLYNPARKER <+> 1 Preop Diagnosis [facility] IntraOp Implant Log Entry 1 Entry 2 Entry 3 Type Implant (Synthetic) Implant (Synthetic) Implant (Synthetic) Implant Log Implant Type Other Other Other Tissue Implant Type Implant SCR SPNE CHRISTIAN FIX SCR SPNE CHRISTIAN FIX SCR SPNE CHRISTIAN FIX Identification [id number] Description Implant Quantity 2 4 2 Implant Site OPSITE OPSITE OPSITE Implant Identification Model Number Implant Identification Serial Number Implant Identification Lot Number Implant J&J:Depuy:Depuy Spine J&J:Depuy:Depuy Spine J&J:Depuy:Depuy Spine Identification Morning Show Producer Name: Implant [id number] Identification Catalog Number Implant Size [id number] 6X55MM 6X50MM Implant Has an Expiration Date Implant Expiration Date Wasted Radioactive Material Time Implanted Tissue Implant Continue for Tissue Implant Documentation Tissue Identification Number Graft Prep Per Morning Show Producer Instructions: Tissue Preparation Method: Reconstitution Solution: Reconstitution Solution Lot Number Reconstitution Solution Expiration Date: Thawing Solution Thawing Solution Lot Number Thawing Solution Expiration Date Preparation Materials, Other Preparation Materials, Other Lot Number Preparation Materials, Other Expiration Date Tissue Prepared/Processed By Morning Show Producer Paperwork Completed Implant Type Comment Last Modified By: Vanesa Webster Rn Parker, Gwendolyn, Rn Parker, Gwendolyn, Rn 09/30/20 19:43:17 09/30/20 19:43:17 09/30/20 19:43:17 Entry 4 Entry 5 Entry 6 Type Implant (Synthetic) Implant (Synthetic) Implant (Synthetic) Implant Log Implant Type Other Other Other Tissue Implant Type Implant SCR SPNE CHRISTIAN FIX SCR ILIAM [id number] SCR ILIAM 8MM X 90MM Identification [id number] Description Implant Quantity 2 1 1 Implant Site OPSITE OPSITE OPSITE Implant Identification Model Number Implant Identification Serial Number Implant Identification Lot Number Implant J&J:Depuy:Depuy Spine J&J:Depuy:Depuy Spine J&J:Depuy:Depuy Spine Identification Morning Show Producer Name: Implant [id number] Identification Catalog Number Implant Size [id number] [id number] Implant Has an Expiration Date Implant Expiration Date Wasted Radioactive Material Time Implanted Tissue Implant Continue for Tissue Implant Documentation Tissue Identification Number Graft Prep Per Morning Show Producer Instructions: Tissue Preparation Method: Reconstitution Solution: Reconstitution Solution Lot Number Reconstitution Solution Expiration Date: Thawing Solution Thawing Solution Lot Number Thawing Solution Expiration Date Preparation Materials, Other Preparation Materials, Other Lot Number Preparation Materials, Other Expiration Date Tissue Prepared/Processed By Morning Show Producer Paperwork Completed Implant Type Comment Last Modified By: Vanesa Webster Rn Parker, Gwendolyn, Rn Parker, Gwendolyn, Rn 09/30/20 19:43:17 09/30/20 19:43:17 09/30/20 19:43:17 Entry 7 Entry 8 Entry 9 Type Implant (Synthetic) Implant (Synthetic) Implant (Synthetic) Implant Log Implant Type Other Other Other Tissue Implant Type Implant MIS PARAG PLY SCRW SET CONCORDE BUL BRANDEN CONCORDE BUL BRANDEN [id number] Identification [id number] Description Implant Quantity 12 1 1 Implant Site OPSITE OPSITE OPSITE Implant Identification Model Number Implant Identification Serial Number Implant Identification Lot Number Implant J&J:Depuy:Depuy Spine J&J:Depuy:Depuy Spine J&J:Depuy:Depuy Spine Identification Morning Show Producer Name: Implant [id number] Identification Catalog Number Implant Size [id number] 9 X27 Implant Has an Expiration Date Implant Expiration Date Wasted Radioactive Material Time Implanted Tissue Implant Continue for Tissue Implant Documentation Tissue Identification Number Graft Prep Per Morning Show Producer Instructions: Tissue Preparation Method: Reconstitution Solution: Reconstitution Solution Lot Number Reconstitution Solution Expiration Date: Thawing Solution Thawing Solution Lot Number Thawing Solution Expiration Date Preparation Materials, Other Preparation Materials, Other Lot Number Preparation Materials, Other Expiration Date Tissue Prepared/Processed By Morning Show Producer Paperwork Completed Implant Type Comment Last Modified By: Vanesa Webster Rn Parker, Gwendolyn, Rn Parker, Gwendolyn, Rn 09/30/20 19:43:17 09/30/20 19:43:17 09/30/20 19:43:17 Entry 10 Type Implant (Synthetic) Implant Log Implant Type Other Tissue Implant Type Implant MOOSE SPINAL Identification [id number] Description Implant Quantity 2 Implant Site OPSITE Implant Identification Model Number Implant Identification Serial Number Implant Identification Lot Number Implant J&J:Depuy:Depuy Spine Identification Morning Show Producer Name: Implant [id number] Identification Catalog Number Implant Size 135MM Implant Has an Expiration Date Implant Expiration Date Wasted Radioactive Material Time Implanted Tissue Implant Continue for Tissue Implant Documentation Tissue Identification Number Graft Prep Per Morning Show Producer Instructions: Tissue Preparation Method: Reconstitution Solution: Reconstitution Solution Lot Number Reconstitution Solution Expiration Date: Thawing Solution Thawing Solution Lot Number Thawing Solution Expiration Date Preparation Materials, Other Preparation Materials, Other Lot Number Preparation Materials, Other Expiration Date Tissue Prepared/Processed By Morning Show Producer Paperwork Completed Implant Type Comment Last Modified By: Vanesa Webster Rn 09/30/20 19:43:17 [facility] IntraOp Implant Log Audit 09/30/20 19:43:17 Mergers And Acquisitions Consultant: VALERY Modifier: VALERY 1 <*> Implant Identification Description SCR SPNE CHRISTIAN FIX [id number] <*> Implant Quantity 1 <+> 2 Implant Identification Description <+> 2 Implant Identification Morning Show Producer Name: <+> 2 Implant Size <+> 2 Implant Site <+> 2 Implant Quantity <+> 2 Implant Identification Catalog Number <+> 2 Implant Type <+> 2 Type <+> 3 Implant Identification Description <+> 3 Implant Identification Morning Show Producer Name: <+> 3 Implant Size <+> 3 Implant Site <+> 3 Implant Quantity <+> 3 Implant Identification Catalog Number <+> 3 Implant Type <+> 3 Type <+> 4 Implant Identification Description <+> 4 Implant Identification Morning Show Producer Name: <+> 4 Implant Size <+> 4 Implant Site <+> 4 Implant Quantity <+> 4 Implant Identification Catalog Number <+> 4 Implant Type <+> 4 Type <+> 5 Implant Identification Description <+> 5 Implant Identification Morning Show Producer Name: <+> 5 Implant Site <+> 5 Implant Quantity <+> 5 Implant Identification Catalog Number <+> 5 Implant Type <+> 5 Type <+> 6 Implant Identification Description <+> 6 Implant Identification Morning Show Producer Name: <+> 6 Implant Size <+> 6 Implant Site <+> 6 Implant Quantity <+> 6 Implant Identification Catalog Number <+> 6 Implant Type <+> 6 Type <+> 7 Implant Identification Description <+> 7 Implant Identification Morning Show Producer Name: <+> 7 Implant Site <+> 7 Implant Quantity <+> 7 Implant Identification Catalog Number <+> 7 Implant Type <+> 7 Type <+> 8 Implant Identification Description <+> 8 Implant Identification Morning Show Producer Name: <+> 8 Implant Size <+> 8 Implant Site <+> 8 Implant Quantity <+> 8 Implant Identification Catalog Number <+> 8 Implant Type <+> 8 Type <+> 9 Implant Identification Description <+> 9 Implant Identification Morning Show Producer Name: <+> 9 Implant Size <+> 9 Implant Site <+> 9 Implant Quantity <+> 9 Implant Identification Catalog Number <+> 9 Implant Type <+> 9 Type <+> 10 Implant Identification Description <+> 10 Implant Identification Morning Show Producer Name: <+> 10 Implant Size <+> 10 Implant Site <+> 10 Implant Quantity <+> 10 Implant Identification Catalog Number <+> 10 Implant Type <+> 10 Type [facility] IntraOp Intraoperative Assessment Entry 1 Handoff Method Bedside/Face to face, Online nursing summary Valid History / Yes Physical in Chart Preoperative Yes Checklist Reviewed/Evaluated Allergies Reviewed Yes Patient is Latex No Sensitive Skin Assessment No Verified Present Upon IVs Arrival to OR Last Modified By: Vanesa Webster Rn 09/30/20 17:17:31 [facility] IntraOp Intraoperative Equipment Entry 1 Type Monitoring Equipment Equipment Nomi Suction System ID Number [id number] Setting HIGH Intraop Monitoring Electrocardiogram Five lead placement (ECG) Electrode Placement Blood Pressure Non-Invasive BP Device Source Blood Pressure Arm, left upper Location Pulse Oximeter Hand, right Probe Site Antiembolic Devices Scopes Photo/Video Documentation Last Modified By: Vanesa Webster Rn 09/30/20 17:18:41 [facility] IntraOp Medication Admin Entry 1 Entry 2 Entry 3 Medication/Irrigant Marcaine 0.25% 30ml lidocaine 1% w/ thrombin 5000units vial - [id number] epinephrine 1:100,000 topical powder - 30ml vial - [id number] Combo Med List Time Administered Route of LOCAL LOCAL LOCAL Administration Dose Dose 30 20 5000 Unit of Measure ml ml units Volume Administered By TROY MCCLURE TUTT, MATTHEW PAIGE, TUTT, MATTHEW PAIGE, MD-SNU MD-U -SNU Procedure Irrigation Irrigant Volume In Irrigant Volume Out Last Modified By: Vanesa Webster Rn Parker, Gwendolyn, Rn Parker, Gwendolyn, Rn 09/30/20 17:49:37 09/30/20 17:49:37 09/30/20 17:49:37 Entry 4 Entry 5 Entry 6 Medication/Irrigant Bacitracin 50,00units Neosporin 15Gm ointment vancomycin 1Gm - powder vial - [id number] Combo Med List Time Administered Route of LOCAL TOPICAL Administration Dose Dose 73453 1 Unit of Measure units pkt gram Volume Administered By TROY MCCLURE TUTT, MATTHEW PAIGE, TUTT, MATTHEW PAIGE, MD-SNU MD-SNU MD-SNU Procedure Irrigation Irrigant Volume In Irrigant Volume Out Last Modified By: Vnaesa Webster Rn Parker, Gwendolyn, Rn Parker, Gwendolyn, Rn 09/30/20 17:49:37 09/30/20 18:04:30 09/30/20 19:31:54 [facility] IntraOp Medication Admin Audit 09/30/20 19:31:54 [employer]ers And Acquisitions Consultant: GWENDOLYNPARKER Modifier: GWENDOLYNPARKER <+> 6 Medication/Irrigant <+> 6 Administered By <+> 6 Dose <+> 6 Unit of Measure 09/30/20 18:04:30 [employer]ers And Acquisitions Consultant: GWENDOLYNPARKER Modifier: GWENDOLYNPARKER <+> 5 Medication/Irrigant <+> 5 Route of Administration <+> 5 Administered By <+> 5 Unit of Measure [facility] IntraOp Patient Positioning Entry 1 Procedure Lumbar Fusion Posterior 3 Level Body Position Prone Left Arm Position Secured on padded arm board Right Arm Position Secured on padded arm board Left Leg Position Uncrossed, parallel Right Leg Position Uncrossed, parallel Feet Uncrossed Yes Pressure Points Yes Checked Positioning Devices Head Rest, Pad, Mattress, Pad, Elbow, Pad, Arm Positioned By TROY MCCLURE MD-SNU, Vanesa Webster Rn, CHRISTIAN OLIVER APRN Position Verified Positioning Yes Verified by Anesthesia Positioning Yes Verified by Surgeon Last Modified By: Vanesa Webster Rn 09/30/20 17:51:42 [facility] IntraOp Sign In Entry 1 Patient, Site, Yes Procedure Identified Surgical Consent Yes Confirmed Relevant Surgical Yes Documents Available Surgical Site Yes Marked by person performing procedure Anesthesia Machine Yes Check Completed Medication Checks Yes Completed Allergies Yes Airway Difficult No Airway/Aspiration Risk Difficult Yes Airway/Aspiration Intervention Equipment Available Blood Loss Risk No Blood Loss Yes Intervention Equipment Prepared and Ready Hypothermia Risk No Warming Measures Yes Taken Last Modified By: Vanesa Webster Rn 09/30/20 17:54:42 [facility] IntraOp Sign Out Entry 1 RN Confirmation Surgical Yes Procedure(s) Identified Instrument, Sponge Yes and Sharps Counts Correct/Documented Equipment Problems N/A Documented Specimen Labeled N/A Correctly Urinary Catheter Yes Documented in IView Lindsey Patient Yes Recovery Concerns Reviewed with Anesthesia Provider, Surgeon and RN Lindsey Patient Yes Management Concerns Reviewed with Anesthesia Provider, Surgeon and RN Safety Checklist Yes Elements Complete? RN Sign Out Vanesa Webster Rn Signature RN Sign Out 09/30/20 20:08:00 Signature Date/Time Plan of Care Outcome - Fire Risk OUTCOME STATEMENT: Goal met Patient is free from injury related to surgical fire Plan of Care Outcome - Pt Positioning OUTCOME STATEMENT: Goal met Absence of signs and symptoms of positioning injury. Plan of Care Outcome - Skin Prep OUTCOME STATEMENT: Goal met Intraoperative care is consistent with measures to prevent infection Plan of Care Outcome - Xray/Images OUTCOME STATEMENT: Goal met Absence of observable signs or symptoms of radiation injury Plan of Care Outcome - Counts OUTCOME STATEMENT: Goal met Absence of signs and symptoms of injury related to extraneous objects Last Modified By: Vanesa Webster Rn 09/30/20 20:08:31 [facility] IntraOp Sign Out Audit 09/30/20 20:08:31 [employer] Consultant: VALERY Modifier: VALERY <+> 1 RN Sign Out Signature Date/Time [facility] IntraOp Skin Prep Entry 1 Procedure Lumbar Fusion Posterior 3 Level Prescribed Yes Pre-Surgical Prep Completed Prep Area OPSITE Intraop Prep Prep Agents DuraPrep Prep by Vanesa Webster Rn Hair Removal Last Modified By: Vanesa Webster Rn 09/30/20 17:53:59 [facility] IntraOp Surgical Procedures Entry 1 Procedure Lumbar Fusion Posterior 3 Level Additional L2 - ILIAC FUSION USING Procedure AIRO Description Primary Procedure Yes Primary Surgeon TROY MCCLURE MD-SNU Start 09/30/20 17:03:00 Stop 09/30/20 19:53:00 Anesthesia Type General Specialty SN Neurosurgery Wound Class I - Clean Last Modified By: Vanesa Webster Rn 09/30/20 20:08:23 [facility] IntraOp Surgical Procedures Audit 09/30/20 20:08:23 Mergers And Acquisitions Consultant: VALERY Modifier: VALERY <+> 1 Stop [facility] IntraOp Temp Regulation Devices Entry 1 Temp Regulation Temperature Forced Air Warming Regulation Device device Temperature Upper body Regulation Site Temperature Device 43 C Setting Temperature CHRISTIAN OLIVER APRN Regulation Device Applied by Last Modified By: Vanesa Webster Rn 09/30/20 17:53:02 [facility] IntraOP Time Out Entry 1 Procedure to be Lumbar Fusion Posterior Performed 3 Level Time Out Time Out Pause Time 09/30/20 17:02:00 All activity Yes suspended (unless life threatening emergency) Team Verbally Correct patient Confirms Information identity, Correct side and site are marked, Consent form is present and accurate, Agreement on the procedure to be done, Correct patient position, Relevant images/results properly labeled/appropriately displayed, Confirm antibiotics have been administered, Confirm the skin prep has dried, Confirm prosthesis/implant/devic e is present, Performed in location of procedure after prepped/draped Antibiotic Yes Prophylaxis Administered Or In Progress Within the Last 60 Minutes Beta Nohemi N/A Administered Venous N/A Thromboembolism Prophylaxis Required Anticipated Critical Events Surgeon None expected Anesthesia Provider None expected Nursing Assures Sterility of instruments, Equipment concerns or issues, Other Essential Imaging Yes Labeled and Displayed Last Modified By: Vanesa Webster Rn 09/30/20 17:04:48 Case Comments <None> Finalized By: JAN CARPENTER Document Signatures Signed By: Vanesa Webster Rn 09/30/20 20:08 JAN CARPENTER 10/02/20 07:54 Unfinalized History Date/Time Username Reason for Unfinalizing Freetext Reason for Unfinalizing 10/02/20 07:52 [email or web address] Correct Billing Electronically signed by Bailey [facility] Conversion Tv News Director Cerner at 03/08/2023 11:47 PM CDT documented in this encounter Plan of Treatment Not on file documented as of this encounter Visit Diagnoses Not on filedocumented in this encounter Care Teams Commodity Loan Clerk Relationship Specialty Start Date End Date Harris Quinn MD [address] [place] [address] PCP - General Adolescent Medicine 01/12/24 Jackie Prado, ANATOMY AND PHYSIOLOGY INSTRUCTOR [address], [place] [id number] Referring Physician Nurse Practitioner 01/12/24 documented as of this encounter
--- OUTSIDE RECORDS SUMMARY | 2025-05-17 12:54 | XMS_ITS | Encounter Summary ---
Author Organization [employer] Address [address] [place] [address] Care Team Providers Care Marketing Administrative Assistant Name Role Phone Harris Quinn MD Primary Care Provider + [phone] Jackie Prado LOAF COUNTER Unavailable + [phone] Encounter Details Date Type Department Care Team (Late st Contact Info) Description 10/01/2020 Transcribed Document [facility] [place] Family Medicine [address] [place] [address] ProviderJerrica MD [address] [place] [address] Social History Tobacco Use Types Packs/Day Years Used Date Smoking Tobacco: Never Assessed Sex and Gender Information Value Date Recorded Sex Assigned at Male 06/20/2024 10:08 AM CDT Legal Sex Male 7:36 AM ACTIVITY DIRECTOR Gender Identity Male 06/20/2024 10:08 AM CDT Sexual Orientation Not on file documented as of this encounter Miscellaneous Notes * Cerner Conversion Note - Historical ProviderMD - 10/01/2020 2:00 AM ACTIVITY DIRECTOR Pain Assessment Entered On: 10/01/2020 2:35 EST Performed On: 10/01/2020 2:55 EST by Armando Armenta Rn Intervention Information: acetaminophen Performed by Armando Armenta, Rn on 10/01/2020 01:55:00 EST acetaminophen,650mg Oral Pain Assessment Pain Scale Goal : 2 Armando Armenta Rn - 10/01/2020 2:35 EST documented in this encounter Plan of Treatment Not on file documented as of this encounter Visit Diagnoses Not on filedocumented in this encounter Care Teams Marketing Administrative Assistant Relationship Specialty Start Date End Date Harris Quinn MD [address] [place] [facility] [address] [place] [address] PCP - General Adolescent Medicine 01/12/24 Jackie Prado, LOAF COUNTER [address] [place] [facility] [address], [place] [address] Referring Physician Nurse Practitioner 01/12/24 documented as of this encounter
--- OUTSIDE RECORDS SUMMARY | 2025-05-17 12:54 | XMS_ITS | Encounter Summary ---
Author Organization [employer] Address [address] [place] [address] Care Team Providers Care Optical Advisor Name Role Phone Harris Quinn MD Primary Care Provider + [phone] Jackie Prado VAMP STITCHER Unavailable + [phone] Encounter Details Date Type Department Care Team (Late st Contact Info) Description 09/30/2020 Transcribed Document [facility] [place] Family Medicine [address] [place] [address] ProviderJerrica MD [address] [place] [address] Social History Tobacco Use Types Packs/Day Years Used Date Smoking Tobacco: Never Assessed Sex and Gender Information Value Date Recorded Sex Assigned at Male 06/20/2024 10:08 AM CDT Legal Sex Male 7:36 AM AERONAUTICAL TEST 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 Gender Identity Male 06/20/2024 10:08 AM CDT Sexual Orientation Not on file documented as of this encounter Miscellaneous Notes * Cerner Conversion Note - Historical ProviderMD - 09/30/2020 8:15 PM AERONAUTICAL TEST ENGINEER Pain Assessment Entered On: 10/01/2020 2:35 EST Performed On: 09/30/2020 21:55 EST by Armando Armenta Rn Intervention Information: HYDROmorphone Performed by Armando Armenta Rn on 09/30/2020 21:25:00 EST HYDROmorphone,0.5mg IV Push,Right Hand,Pain (Moderate 4-6) Pain Assessment Pain Assessment : Follow-up assessment Pain Scale Goal : 2 Pain Scale Used : 0-10 Scale Location : Back Pain Worsened by : Movement Pain Improved by : Medication Armando Armenta Rn - 10/01/2020 2:35 EST Pain Scale Intensity : 4 Armando Armenta Rn - 10/01/2020 2:35 EST Image 4 - Images currently included in the form version of this document have not been included in the text rendition version of the form. documented in this encounter Plan of Treatment Not on file documented as of this encounter Visit Diagnoses Not on filedocumented in this encounter Care Teams Optical Advisor Relationship Specialty Start Date End Date Harris Quinn MD [address] [place] [facility] [address] [place] [address] PCP - General Adolescent Medicine 01/12/24 Jackie Prado, VAMP STITCHER [address], [place] [address] Referring Physician Nurse Practitioner 01/12/24 documented as of this encounter
--- OUTSIDE RECORDS SUMMARY | 2025-05-17 12:54 | XMS_ITS | Clinical Summary ---
Author Organization [employer] Address [address] [place] [address] Care Team Providers Care Clinic Specialist Name Role Phone Harris Quinn MD Primary Care Provider + [phone] Jackie Prado GI ASST Unavailable + [phone] Allergies No known active allergies Medications * [...] mg total) by mouth daily. Active omega 3-vto-hpn-fish oil capsule Take 1 capsule (1,000 mg [...] 25 Active Problems No known active problems Family History Medical History Relation Name Comments Heart disease Father Arthritis Mother Heart disease Mother Down syndrome Other Heart disease Other Relation Name Status Comments Father Mother Other Social History Tobacco Use Types Packs/Day Years [...] AM CDT Legal Sex Male 7:36 AM BROOM MAKER Gender Identity Male 06/20/2024 10:08 AM CDT [...] 09/27/2024 11:02 AM EST Plan of Treatment Health Maintenance Due Date Last Done Comments CT Colonography 1956 Colonoscopy 1955 Colorectal Cancer Screening 1956 FOBT/FIT 1956 Fit-DNA (Cologuard) 1956 Sigmoidoscopy 1956 Depression Screening (12+) 1968 Hepatitis C Screening 01/23/1974 Shingles Vaccine (Zoster) (1 of 2) 01/23/1975 Respiratory Syncytial Virus (RSV) Adult or (1 - Risk 60-74 years 1-dose series) 2016 Abdominal Aortic Aneurysm (A AA) Screen 01/23/2021 Medicare Initial AWV [id number] 01/20/2022 Pneumococcal 50+ years (2 of 2 - PCV) 10/08/2022 10/08/2021 COVID-19 VACCINE (4 - 2023-2 5 season) 2024 11/04/2021, 02/25/2021, 01/23/2021 Falls Risk Screening 11/21/2024 Influenza Vaccine (Season Ended) 2025 08/16/2023, 10/11/2022, 10/08/2021, Additional history exists Tobacco Cessation Counseling and Screening (12+) 09/27/2025 09/27/2024 DTAP/TDAP/TD VACCINES (2 - T d or Tdap) 07/21/2026 07/21/2016 Insurance MEDICARE PART A B /[facility] Care Teams Clinic Specialist Relationship Specialty Start Date End Date Harris Quinn MD [address] [facility] [address] [place] [address] PCP - General Adolescent Medicine 01/12/24 Jackie Prado, GI ASST [address] [place] [address], [place] [address] Referring Physician Nurse Practitioner 01/12/24
--- OUTSIDE RECORDS SUMMARY | 2025-05-17 12:54 | XMS_ITS | Encounter Summary ---
Author Organization [employer] Address [address] [place] [address] Care Team Providers Care Immigration Officer Name Role Phone Harris Quinn MD Primary Care Provider + [phone] Jackie Prado SOIL CONSERVATION TECHNICIAN Unavailable + [phone] Encounter Details Date Type Department Care Team (Late st Contact Info) Description 09/27/2020 Transcribed Document [facility] [place] [address] [place] [address] ProviderJerrica MD [address] [place] [address] Social History Tobacco Use Types Packs/Day Years Used Date Smoking Tobacco: Never Assessed Sex and Gender Information Value Date Recorded Sex Assigned at Male 06/20/2024 10:08 AM CDT Legal Sex Male 7:36 AM SOLAR HOT WATER 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 Gender Identity Male 06/20/2024 10:08 AM CDT Sexual Orientation Not on file documented as of this encounter Miscellaneous Notes * Cerner Conversion Note - Historical ProviderMD - 09/27/2020 5:27 PM SOLAR HOT WATER INSTALLER Consult Phone Call Documentation Entered On: 09/27/2020 18:53 EST Performed On: 09/27/2020 17:27 EST by KATHY MOTLEY, RN Phone Call for Consults Consult Phone Call/Page Attempt : First call Physician Covering for Consult : TROY MCCLURE MD-SNU Date and Time Call Returned : 09/27/2020 18:00 EST Physician Returning Call : TROY MCCLURE MD-U KATHY MOTLEY, RN - 09/27/2020 18:52 EST documented in this encounter Plan of Treatment Not on file documented as of this encounter Visit Diagnoses Not on filedocumented in this encounter Care Teams Immigration Officer Relationship Specialty Start Date End Date Harris Quinn MD [address] [place] [facility] [address] [place] [address] PCP - General Adolescent Medicine 01/12/24 Jackie Prado, SOIL CONSERVATION TECHNICIAN [address] [place] [facility] [address], [place] [address] Referring Physician Nurse Practitioner 01/12/24 documented as of this encounter
--- OUTSIDE RECORDS SUMMARY | 2025-05-17 12:54 | XMS_ITS | Encounter Summary ---
Author Organization [employer] Address [address] [place] [address] Care Team Providers Care Hematology Nurse Name Role Phone Harris Quinn MD Primary Care Provider + [phone] Jackie Prado BLIND TEACHER Unavailable + [phone] Encounter Details Date Type Department Care Team (Late st Contact Info) Description 10/03/2020 Transcribed Document [facility] [place] Family Medicine [address] [place] [address] ProviderJerrica MD [address] [place] [address] Social History Tobacco Use Types Packs/Day Years Used Date Smoking Tobacco: Never Assessed Sex and Gender Information Value Date Recorded Sex Assigned at Male 06/20/2024 10:08 AM CDT Legal Sex Male 7:36 AM TEEN COUNSELOR Gender Identity Male 06/20/2024 10:08 AM CDT Sexual Orientation Not on file documented as of this encounter Miscellaneous Notes * Cerner Conversion Note - Historical ProviderMD - 10/03/2020 2:25 PM TEEN COUNSELOR Stroke/Warfarin Instructions Entered On: 10/03/2020 14:25 EST Performed On: 10/03/2020 14:25 EST by GABY GRAVES RN Stroke/Warfarin Instructions Stroke/TIA Discharge Ins : N/A Warfarin Discharge Ins : N/A GABY GRAVES RN - 10/03/2020 14:25 EST Electronically signed by Bailey [facility] Conversion Horticultural Specialty Grower Inside Cerner at 03/08/2023 11:39 PM CDT documented in this encounter Plan of Treatment Not on file documented as of this encounter Visit Diagnoses Not on filedocumented in this encounter Care Teams Hematology Nurse Relationship Specialty Start Date End Date Harris Quinn MD [address] [place] [address] [place] [address] PCP - General Adolescent Medicine 01/12/24 Jackie Prado, BLIND TEACHER [address], [place] [address] Referring Physician Nurse Practitioner 01/12/24 documented as of this encounter
--- OUTSIDE RECORDS SUMMARY | 2025-05-17 12:54 | XMS_ITS | Encounter Summary ---
Author Organization [employer] Address [address] [place] [address] Care Team Providers Care Boiler Shop Supervisor Name Role Phone Harris Quinn MD Primary Care Provider + [phone] Jackie Prado CHIEF CONCIERGE Unavailable + [phone] Encounter Details Date Type Department Care Team (Late st Contact Info) Description 09/30/2020 Transcribed Document [facility] [place] [address] [place] [address] ProviderJerrica MD [address] [place] [address] Social History Tobacco Use Types Packs/Day Years Used Date Smoking Tobacco: Never Assessed Sex and Gender Information Value Date Recorded Sex Assigned at Male 06/20/2024 10:08 AM CDT Legal Sex Male 7:36 AM GEOLOGICAL SURVEY FIELD ASSISTANT Gender Identity Male 06/20/2024 10:08 AM CDT Sexual Orientation Not on file documented as of this encounter Miscellaneous Notes * Cerner Conversion Note - Historical ProviderMD - 09/30/2020 2:05 PM GEOLOGICAL SURVEY FIELD ASSISTANT UM Authorization Entered On: 09/30/2020 14:07 EST Performed On: 09/30/2020 14:05 EST by Lyric Gerard, Tearer Primary Insurance Authorization Authorization and Policy Numbers : Insurance 1 Health Plan: [employer] Policy Number: [id number] Authorization Number: Insurance Primary Name : [employer] Policy Number: [id number] Authorization Status-Primary : Admit approved Reference Number-Primary : [id number] Number of Days Authorized-Primary : 10 Day(s) Authorized Service Begin Date-Primary : 09/27/2020 EST Authorized Service End Date-Primary : 10/07/2020 EST Authorization Comments-Primary : Authorized per fax 09/30/2020 @ 1014. Approved inpatient stay x11 days. Next review due 10/08/2020. Historical Authorization Comments-Primary : Comment 1: plan is for OR 09/30/2020; upgraded to IP, email to dt to update status, secure email sent to [facility] w/ demographics and initial packet attached (AUSTIN KENNEY, RN-Utilization Review 09/29/2020 14:46) Comment 2: EM TO UR TEAM TO UPGRADE TO IP IF PATIENT HAS SURGERY (Rema Dawn, Rn-Utilization Review 09/28/2020 12:09) Lyric Gerard, Tearer - 09/30/2020 14:05 EST Electronically signed by [facility] Conversion Corporate Job Titles Cerner at 03/08/2023 11:37 PM CDT documented in this encounter Plan of Treatment Not on file documented as of this encounter Visit Diagnoses Not on filedocumented in this encounter Care Teams Boiler Shop Supervisor Relationship Specialty Start Date End Date Harris Quinn MD [address] [facility] [address] [place] [address] PCP - General Adolescent Medicine 01/12/24 Jackie Prado, CHIEF CONCIERGE [address] [place] [address] Referring Physician Nurse Practitioner 01/12/24 documented as of this encounter
--- OUTSIDE RECORDS SUMMARY | 2025-05-17 12:54 | XMS_ITS | Encounter Summary ---
Author Organization [employer] Address [address] [place] [address] Care Team Providers Care Structural Layout Worker Name Role Phone Harris Qunin MD Primary Care Provider + [phone] Jackie Prado Mitchell TALENT ACQUISITION RELATIONSHIP MANAGER Unavailable + [phone] Encounter Details Date Type Department Care Team (Late st Contact Info) Description 09/30/2020 Transcribed Document [facility] [address] [id number] John Cerda MD [address] [place] [address] Social History Tobacco Use Types Packs/Day Years Used Date Smoking Tobacco: Never Assessed Sex and Gender Information Value Date Recorded Sex Assigned at Male 06/20/2024 10:08 AM CDT Legal Sex Male 7:36 AM METER AND REGULATOR SHOP SUPERVISOR Gender Identity Male 06/20/2024 10:08 AM CDT Sexual Orientation Not on file documented as of this encounter Miscellaneous Notes * Cerner Conversion Note - John Cerda MD - 09/30/2020 9:13 PM EST DATE OF PROCEDURE: 09/30/2020 SURGEON: John Cerda [...] interbody fusion. 3. Bilateral pelvic fixation. 4. L2 to iliac posterior instrumentation. 5. L2 through S1 posterolateral fusion. 6. Intraoperative CT scan with stereotactic navigation. ENVIRONMENTAL SCIENCE PROGRAM DIRECTOR: None. TYPE OF ANESTHESIA: GEA. DESCRIPTION OF PROCEDURE IN DETAIL: Once consent was noted to be on chart, Mr. Lambert was taken to the operating room. He was anesthetized and placed into the prone position on a Angelo spine frame. A Jordan catheter had been placed. All pressure points were carefully checked and padded. Preoperative antibiotics were given. A time-out was called. A low-dose CT scan was performed to plan the skin incision as well as placed 2 Steinmann pins into the right iliac crest. A two-pin fixator was placed on these pins and reference array for further stereotactic navigation. A 10 blade was used to make a midline incision from L2-S2. Bovie electrocautery was used to dissect down to into the lumbosacral fascia. A subperiosteal dissection was performed throughout and scar tissue was resected off the previous L4-5 laminectomy. Once retractors were placed, a CT scan was performed for stereotactic navigation. The usual freehand techniques, the Monkey Puzzle Mediaium system, and the navigation were utilized to place pedicle screws at L2, L3, L4, L5, and S1 bilaterally. S2AI screws were placed bilaterally using stereotactic navigation. Repeat CT scan showed good placement of all instrumentation. The laminectomy was then performed at L2-3, L3-4, and L5-S1. Full decompression of each segment was achieved. A diskectomy was performed from the left-sided approach at L2-3 and a right-sided approach to L3-4. Carbon fiber cages were placed into the disk space at each of these levels. The cages were packed with recycled lamina spinous process and ViviGen. The cages showed good placement across the midline with stereotactic navigation. Full decompression was achieved of the pinched right S1 nerve. A free fragment of disk was resected from underneath the nerve. There was an incidental durotomy along the S1 nerve and this was closed with a single 4-0 Nurolon and some fat autograft was placed along it. No further CSF was visualized throughout the procedure. Posterolateral bone was decorticated at L2-3, L3-4, L4-5, and L5-S1 bilaterally. Allograft and autograft were laid in place bilaterally for posterolateral fusion. DuraSeal was used to reinforce the area of the CSF leak over top of the autograft. A mariela was placed from L2-S2 and setscrews torqued to factory specifications. A FREDDY drain was left into the epidural space and vancomycin powder was also left into the wound. 1 Vicryl reapproximated the paraspinous muscles and fascia. 2-0 Vicryl closed the space and closed the skin subcuticularly. The skin was stapled. Bacitracin and Covaderm were applied. SPECIMEN SENT: None. ESTIMATED BLOOD LOSS: 450 mL. DRAINS: Angelo Altman. COMPLICATIONS: None. /[id number] John Cerda MD MPT/AQ / MPT / MODL /[id number] CC: Harris Quinn documented in this encounter Plan of Treatment Not on file documented as of this encounter Visit Diagnoses Not on filedocumented in this encounter Care Teams Structural Layout Worker Relationship Specialty Start Date End Date Harris Quinn MD [address] [place] [facility] [address] [place] [address] PCP - General Adolescent Medicine 01/12/24 Jackie Prado APRN [address] [place] [address], [place] [address] Referring Physician Nurse Practitioner 01/12/24 documented as of this encounter
--- OUTSIDE RECORDS SUMMARY | 2025-05-17 12:54 | XMS_ITS | Encounter Summary ---
Author Organization [employer] Address [address] [place] [address] Care Team Providers Care Oxide Furnace Tender Name Role Phone Harris Quinn MD Primary Care Provider + [phone] Jackie Prado CHANCELLOR Unavailable + [phone] Encounter Details Date Type Department Care Team (Late st Contact Info) Description 09/30/2020 Transcribed Document [facility] [place] Family Medicine [address] [place] [address] ProviderJerrica MD [address] [place] [address] Social History Tobacco Use Types Packs/Day Years Used Date Smoking Tobacco: Never Assessed Sex and Gender Information Value Date Recorded Sex Assigned at Male 06/20/2024 10:08 AM CDT Legal Sex Male 7:36 AM SOUND CONTROLLER Gender Identity Male 06/20/2024 10:08 AM CDT Sexual Orientation Not on file documented as of this encounter Miscellaneous Notes * Cerner Conversion Note - Historical ProviderMD - 09/30/2020 3:02 PM SOUND CONTROLLER Procedural Documentation Entered On: 09/30/2020 15:03 EST Performed On: 09/30/2020 15:02 EST by TIM Guardado RN Procedure Documentation Procedure to be Performed : Lef tradial arterial line Time Out Pause Time : 09/30/2020 15:00 EST All Activity Suspended : Yes Team Verbally Confirms Information : Correct patient identity, Correct side and site are marked, Consent form is present and accurate, Agreement on the procedure to be done, Correct patient position, Confirm the skin prep has dried, Performed in location of procedure after prepped/draped Procedure Case Attendee : ÁLVARO WHILTEY MD-ANS Procedure Case Attendee Role : Anesthesiologist Procedure Case Attendee Role 2 : hand bookbinder Case Attendee 2 : TIM Guardado, TIM Eng RN - 09/30/2020 15:02 EST Laura Level I Post Anesthesia Assessment Laura I Activity Status : Moves 4 extremities voluntarily or on command Laura l Respiratory Component : Able to deep breathe and cough freely Laura I Circulation Component : BP 20% of preanesthetic level Laura I Consciousness : Fully awake Laura l Oxygen Saturation : Can maintain > 92% on room air Laura l Score : 10 TIM Guardado RN - 09/30/2020 15:02 EST Vital Measurements Systolic Blood Pressure : 165 mmHg (HI) Diastolic Blood Pressure : 55 mmHg (LOW) TIM Guardado RN - 09/30/2020 15:12 EST Peripheral Pulse Rate : 49 bpm (LOW) Respiratory Rate : 14 Breaths/Min Blood Pressure Location : Arterial Blood Pressure Source : Arterial Pressure Line Oxygen Saturation : 98 % Oxygen Therapy Mode : Nasal cannula Oxygen Flow Rate : 2 Liter/Min TIM Guardado RN - 09/30/2020 15:02 EST Electronically signed by [facility], [facility] Conversion Professor Of Marketing Cerner at 03/08/2023 11:49 PM CDT documented in this encounter Plan of Treatment Not on file documented as of this encounter Visit Diagnoses Not on filedocumented in this encounter Care Teams Oxide Furnace Tender Relationship Specialty Start Date End Date Harris Quinn MD [address] [place] [address] [place] [address] PCP - General Adolescent Medicine 01/12/24 Jackie Prado, LEORA [address] [place] [address], [place] [address] Referring Physician Nurse Practitioner 01/12/24 documented as of this encounter
--- OUTSIDE RECORDS SUMMARY | 2025-05-17 12:54 | XMS_ITS | Encounter Summary ---
Author Organization [employer] Address [address] [address] Care Team Providers Care Slice Cutting Machine Operator Name Role Phone Harris Quinn MD Primary Care Provider + [phone] Jackie Prado BROADCAST NEWS PRODUCER Unavailable + [phone] Encounter Details Date Type Department Care Team (Late st Contact Info) Description 10/03/2020 Transcribed Document [facility] [place] [address] [place] [address] ProviderJerrica MD [address] [place] [address] Social History Tobacco Use Types Packs/Day Years Used Date Smoking Tobacco: Never Assessed Sex and Gender Information Value Date Recorded Sex Assigned at Male 06/20/2024 10:08 AM CDT Legal Sex Male 7:36 AM GRAILS WEB APPLICATION DEVELOPER Gender Identity Male 06/20/2024 10:08 AM CDT Sexual Orientation Not on file documented as of this encounter Miscellaneous Notes * Cerner Conversion Note - Historical ProviderMD - 10/03/2020 3:48 PM GRAILS WEB APPLICATION DEVELOPER Discharge Summary, PT Entered On: 10/03/2020 15:54 EST Performed On: 10/03/2020 15:48 EST by MARY BURKETT Student-Physical Therapist Discharge Summary Reason for Discharge : Discharged from hospital Discharged to, Therapy : Home, with home health (Comment: S3 [MARY BURKETT Student-Physical Therapist - 10/03/2020 15:48 EST] ) Discharge Equipment, PT : Belt, gait, Walker MARY BURKETT, Student-Physical Therapist - 10/03/2020 15:48 EST Discharge Summary Comment, PT : Pt was supervision for sit to stand, stand to sit and bed mobility. Pt verbalized his BLT and log roll precautions. Pt ambulated 300' with no AD. Pt performed GS, QS, heel slides, marching, bent knee fall outs, and pelvic tilts. Pt was educated on his HEP and using walker to community ambulation. Pt requires home health physical therpay but no further inpatient physical therpay is required becaseu pt was discharged today. Physical therapy is signing off at this time. PT has reviewed and agrees with note. LIV RCIHARDSON, PT - 10/03/2020 15:54 EST Doctor Of Pharmacy Goals Mobility/Bed Mobility LTG PT Grid Goal #1 Goal #2 Goal #3 Activity : Supine to sit Sit to stand Sit to stand Assist : Independent, modified Independent, modified Supervision or set-up Equipment : Bed, standard Walker, front wheel Belt, gait Date to Meet : 10/15/2020 EST 10/15/2020 EST 10/02/2020 EST Goal Status : Goal met Goal met Goal met Date Met : 10/03/2020 EST 10/02/2020 EST MARY BURKETT Student-Physical Therapist - 10/03/2020 15:48 EST MARY BURKETT Student-Physical Therapist - 10/03/2020 15:48 EST MARY BURKETT Student-Physical Therapist - 10/03/2020 15:48 EST Transfer LTG Grid Goal #1 Destination : Chair, with arms Assist : Independent, modified Equipment : Walker, front wheel Date to Meet : 10/15/2020 EST Goal Status : Not met MARY BURKETT Student-Physical Therapist - 10/03/2020 15:48 EST Ambulation LTG Grid Goal #1 Device : Walker, front wheel Distance : 350 ft Assist : Independent, modified Date to Meet : 10/16/2020 EST Goal Status : Not met MARY BURKETT Student-Physical Therapist - 10/03/2020 15:48 EST Stairs LTG Grid Goal #1 Device : None Number of Steps : 11 Handrail(s) : No handrails Assist : Supervision or set-up Date to Meet : 10/15/2020 EST Goal Status : Goal met Date Met : 10/02/2020 EST MARY BURKETT Student-Physical Therapist - 10/03/2020 15:48 EST Electronically signed by Bailey, [facility] Conversion [employer] Flatbed Truck Driver Cerner at 03/08/2023 11:30 PM CDT documented in this encounter Plan of Treatment Not on file documented as of this encounter Visit Diagnoses Not on filedocumented in this encounter Care Teams Slice Cutting Machine Operator Relationship Specialty Start Date End Date Harris Quinn MD [address] [place] [facility] [address] [place] [address] PCP - General Adolescent Medicine 01/12/24 Jackie Prado, BROADCAST NEWS PRODUCER [address] [place] [facility] [address], [place] [address] Referring Physician Nurse Practitioner 01/12/24 documented as of this encounter
--- OUTSIDE RECORDS SUMMARY | 2025-05-17 12:54 | XMS_ITS | Encounter Summary ---
Author Organization [employer] Address [address] [place] [address] Care Team Providers Care Batch Plant Supervisor Name Role Phone Harris Quinn MD Primary Care Provider + [phone] Jackie Prado SKIN DRIER Unavailable + [phone] Encounter Details Date Type Department Care Team (Late st Contact Info) Description 10/03/2020 Transcribed Document [facility] Neurology - [facility] [address] [id number] John Cerda MD [address] [place] [address] Social History Tobacco Use Types Packs/Day Years Used Date Smoking Tobacco: Never Assessed Sex and Gender Information Value Date Recorded Sex Assigned at Male 06/20/2024 10:08 AM CDT Legal Sex Male 7:36 AM DRILL HAND Gender Identity Male 06/20/2024 10:08 AM CDT Sexual Orientation Not on file documented as of this encounter Miscellaneous Notes * Cerner Conversion Note - John Cerda MD - 10/03/2020 8:43 AM EST Patient: ELIZA GUARDADO Age: 65 years Sex: Male : 1955 Associated Diagnoses: None Author: JENNIFER WRIGHT PA Subjective Back pain well controlled. Leg pain improved since surgery. Objective Sitting in bed in NAD. AAOx3. Incision clean, dry, and intact. Ambulated with PT 280' yesterday. Impression and Plan POD 3 L2-iliac fusion. Ok for discharge from NS standpoint. Rx for percocet on chart. Short steroid taper. Discussed wound care and follow up. documented in this encounter Plan of Treatment Not on file documented as of this encounter Visit Diagnoses Not on filedocumented in this encounter Care Teams Batch Plant Supervisor Relationship Specialty Start Date End Date Harris Quinn MD [address] [facility] [address] [place] [address] PCP - General Adolescent Medicine 01/12/24 Jackie Prado, SKIN DRIER [address] [facility] [address], [place] [address] Referring Physician Nurse Practitioner 01/12/24 documented as of this encounter
--- OUTSIDE RECORDS SUMMARY | 2025-05-17 12:54 | XMS_ITS | Encounter Summary ---
Author Organization [employer] Address [address] [place] [address] Care Team Providers Care Industrial Cleaning Technician Name Role Phone Harris Quinn MD Primary Care Provider + [phone] Jackie Prado SANFORIZER Unavailable + [phone] Encounter Details Date Type Department Care Team (Late st Contact Info) Description 10/01/2020 Transcribed Document [facility] Family Medicine [address] [place] [address] ProviderJerrica MD [address] [place] [address] Social History Tobacco Use Types Packs/Day Years Used Date Smoking Tobacco: Never Assessed Sex and Gender Information Value Date Recorded Sex Assigned at Male 06/20/2024 10:08 AM CDT Legal Sex Male 7:36 AM MOLASSES FEED MIXER Gender Identity Male 06/20/2024 10:08 AM CDT Sexual Orientation Not on file documented as of this encounter Miscellaneous Notes * Cerner Conversion Note - Historical ProviderMD - 10/01/2020 2:00 PM MOLASSES FEED MIXER Pain Assessment Entered On: 10/01/2020 17:59 EST Performed On: 10/01/2020 15:30 EST by Jessica Boyer RN Intervention Information: acetaminophen Performed by Jessica Boyer RN on 10/01/2020 14:30:00 EST acetaminophen,650mg Oral Pain Assessment Pain Assessment : Follow-up assessment Pain Scale Goal : 2 Pain Scale Used : 0-10 Scale Location : Back Onset : Acute Jessica Boyer RN - 10/01/2020 17:58 EST Pain Scale Intensity : 4 Jessica Boyer RN - 10/01/2020 17:58 EST Image 4 - Images currently included in the form version of this document have not been included in the text rendition version of the form. documented in this encounter Plan of Treatment Not on file documented as of this encounter Visit Diagnoses Not on filedocumented in this encounter Care Teams Industrial Cleaning Technician Relationship Specialty Start Date End Date Harris Quinn MD [address] [facility] [address] [place] [address] PCP - General Adolescent Medicine 01/12/24 Jackie Prado, LEORA [address] [facility] [address], [place] [address] Referring Physician Nurse Practitioner 01/12/24 documented as of this encounter
--- OUTSIDE RECORDS SUMMARY | 2025-05-17 12:54 | XMS_ITS | Encounter Summary ---
Author Organization [employer] Address [address] [place] [address] Care Team Providers Care Cnc Mill Programmer Name Role Phone Harris Quinn MD Primary Care Provider + [phone] Jackie Prado PAPER FOLDING MACHINE OPERATOR Unavailable + [phone] Encounter Details Date Type Department Care Team (Late st Contact Info) Description 09/30/2020 Transcribed Document [facility] [place] [address] [place] [address] ProviderJerrica MD [address] [place] [address] Social History Tobacco Use Types Packs/Day Years Used Date Smoking Tobacco: Never Assessed Sex and Gender Information Value Date Recorded Sex Assigned at Male 06/20/2024 10:08 AM CDT Legal Sex Male 7:36 AM TEACHING SUPERVISOR Gender Identity Male 06/20/2024 10:08 AM CDT Sexual Orientation Not on file documented as of this encounter Miscellaneous Notes * Cerner Conversion Note - Historical ProviderMD - 09/30/2020 8:15 PM TEACHING SUPERVISOR Evaluation, Physical Therapy Entered On: 10/01/2020 11:39 EST Performed On: 10/01/2020 10:09 EST by ANGÉLICA LARSEN, PT General Information, PT Visit Type, PT : Initial evaluation Patient Orders : Order Date Order Ordering 09/27/2020 17:26 PT Evaluation and Treatment Ordered By: KATERINE CHUNG MD-INT 09/30/2020 20:15 Physical Therapy Eval and Treat Ordered By: TROY MCCLURE MD-SNU Active Diagnoses : 09/27/2020 12:00 Pain, unspecified Therapy Diagnosis, PT : decreased endurance and loss independent mobility after back sx Onset of Problem, PT : 09/30/2020 EST Admission Date : 09/29/2020 14:34 Co-treated by, PT : Occupational Therapist Personal Devices : Personal Devices No Devices Recorded Assistive Devices : Assistive Devices No Devices Recorded Precautions in Place : Other: Headache precautions General Information Comment, PT : 65 yo male adm to [facility] 09/29 for Intractable back pain, and R DVT HAD SURGERY 09/30 for L2-S1 Fusion/Lami PMHx significant for Rag Cage Fusion 1998 ANGÉLICA LARSEN, PT - 10/01/2020 11:25 EST General Status Patient Received Status : Supine in bed, Other: daughter present Treatment Start Time : 10/01/2020 9:47 EST Patient Left Status : Up in chair, RN/PCT informed, Family/Visitors at bedside, Communication board completed, All needs met and within reach RN/PCT Informed Comment : yes per RN Jessica he had to lay flat all night, we already sat him up and he had NO headache, but watch for a headache, and lay him back down IF he gets one Treatment End Time : 10/01/2020 10:09 EST Treatment Time : 22 Minute(s) Actual Treatment Time : 22 Minute(s) ANGÉLICA LARSEN, PT - 10/01/2020 11:25 EST History and Environment Living Situation, Therapy : Home Patient Lives With : Alone Persons Assisting Patient at Home : Alone, Family member(s) Professional Skilled Services : None Persons Providing Information : Patient, Family member(s) Home Equipment Therapy, PT : Crutches Crutches : Crutches, axillary Home Setup : Two story Bedroom Location : Upstairs Bathroom #1 Location : Upstairs Bathroom #1 Features : Toilet, Tub/Shower Bathroom #2 Location : Main level Bathroom #2 Features : Toilet Stairs : Yes Stair Location(s) : Inside, Outside Inside Stairs, Number of Steps : 11 Outside Stairs, Number of Steps : 1 Railing Inside : No Railing Outside : No Ramp : No ANGÉLICA LARSEN, PT - 10/01/2020 11:25 EST Prior Level of Function PT GRID Prior LOF Ambulation, Household : Independent Prior LOF Ambulation, Community : Independent Prior LOF Bed Mobility : Independent Prior LOF Toileting : Independent Prior LOF Transfer : Independent CHAVA ANGÉLICA, PT - 10/01/2020 11:25 EST History and Environment Comment, PT : daughter lives near by and has been assisting pt with shopping due to CoVid 19 situation ANGÉLICA LARSEN, PT - 10/01/2020 11:25 EST Upper Extremity Right UE Active ROM : WFL Right UE Strength : WFL Left UE Active ROM : WFL Left UE Strength : WFL ANGÉLICA LARSEN, PT - 10/01/2020 11:25 EST Lower Extremity RLE Active ROM : WFL Right LE Strength : WFL LLE Active ROM : WFL Left LE Strength : WFL Lower Extremity Comment : pain limits ROM and MMT ANGÉLICA LARSEN, PT - 10/01/2020 11:25 EST Functional Mobility Mobility Grid Bed Roll Left : Supervision/set-up Bed Scooting : Supervision/set-up Supine to Sit : Supervision/set-up Sit to Stand : Supervision/set-up Stand to Sit : Supervision/set-up ANGÉLICA LARSEN, PT - 10/01/2020 11:25 EST Supine to Sit Device : Rails Sit to Stand Device : Belt, gait, Walker, front wheel Stand to Sit Device : Belt, gait, Walker, front wheel Functional MobilityComment : no back brace, verbal cues for log roll ANGÉLICA LARSEN, PT - 10/01/2020 11:25 EST Gait Training/Assessment, PT Weight Bearing Status : Full Gait Assistance Level : Supervision Walking Distance : approx 220 ft Ambulatory Devices : Gait belt, Walker, front wheel, Other: IV, FREDDY Drain Gait Deviations : Yes Left Lower Gait Deviation : [place]se, decreased, Foot clearance, decreased Right Lower Gait Deviation : [place], decreased, Foot clearance, decreased Gait Training Comment : stopped periodically for rest breaks ANGÉLICA LARSEN, PT - 10/01/2020 11:25 EST Cognition Assessment, PT Orientation : Oriented x 4 Safety/Judgment Comment : good Follows Basic Command Assessment : yes Attention Assessment : Present ANGÉLICA LARSEN, PT - 10/01/2020 11:25 EST Edu Topics Physical Therapy Education Grid Balance Training : Returns demonstration Bed Mobility Training : Returns demonstration, Needs reinforcement Gait Training : Returns demonstration, Needs reinforcement Home Program/Exercises : Needs further teaching Precaution/Contraindication : Verbalizes understanding, Returns demonstration, Needs reinforcement Role of Physical Therapy : Verbalizes understanding Safety : Verbalizes understanding, Returns demonstration, Needs reinforcement Therapeutic Exercises : Needs further teaching Transfer Training : Returns demonstration, Needs reinforcement Use of Assistive Device : Returns demonstration, Needs reinforcement ANGÉLICA LARSEN, PT - 10/01/2020 11:25 EST Indication Assesessment, PT Physical Therapy Indicated : Yes PT Problem List : Impaired, bed mobility, Impaired, endurance tolerance, Impaired, gait, Impaired, stair mobility, Impaired, transfers, Pain limiting function Potential Barriers To Therapy : Acuity of Illness, Pain Rehabilitation Potential : Good ANGÉLICA LARSEN, PT - 10/01/2020 11:25 EST Plan of Care, PT PT Tx Plan/Goals Established w Patient : Yes PT Frequency Rehab : Daily, twice (bid) PT Duration Rehab : Fourteen days PT Treatments Planned : Bed mobility training, Gait training, Pain management, Safety education, Stair training, Therapeutic exercises, Transfer training ANGÉLICA LARSEN, PT - 10/01/2020 11:25 EST Shelter Goals Mobility/Bed Mobility LTG PT Grid Goal #1 Goal #2 Activity : Supine to sit Sit to stand Assist : Independent, modified Independent, modified Equipment : Bed, standard Walker, front wheel Date to Meet : 10/15/2020 EST 10/15/2020 EST Goal Status : Intial Goal Intial Goal ANGÉLICA LARSEN, PT - 10/01/2020 11:25 EST ANGÉLICA LARSEN, PT - 10/01/2020 11:25 EST Transfer LTG Grid Goal #1 Destination : Chair, with arms Assist : Independent, modified Equipment : Walker, front wheel Date to Meet : 10/15/2020 EST Goal Status : Intial Goal ANGÉLICA LARSEN, PT - 10/01/2020 11:25 EST Ambulation LTG Grid Goal #1 Device : Walker, front wheel Distance : 350 ft Assist : Independent, modified Date to Meet : 10/16/2020 EST Goal Status : Intial Goal ANGÉLICA LARSEN, PT - 10/01/2020 11:25 EST Stairs LTG Grid Goal #1 Device : Crutches, axillary Number of Steps : 11 Handrail(s) : No handrails Assist : Supervision or set-up Date to Meet : 10/15/2020 EST Goal Status : Intial Goal Comment : ONE or TWO crutches ANGÉLICA LARSEN, PT - 10/01/2020 11:25 EST Treatment Note Subjective Comment : agreed to PTx/OTx and getting OOB Patient's Response to Treatment : good Assessment : good effort, attentive to ed for log roll low endurance with several standing rest breaks with amb needs further rehab to ensure safety with return home alone with 11 stairs to bedroom and NO HANDRAILS Plan for Treatment : initate POC for mobility ANGÉLICA LARSEN, PT - 10/01/2020 11:25 EST Pain Assessment Pain Scaled Used : 0-10 Pain scale Pain Score Pre-Intervention : 3 Location : Back, lower, Incisional Onset : Constant ANGÉLICA LARSEN, PT - 10/01/2020 11:25 EST Image 1 - Images currently included in the form version of this document have not been included in the text rendition version of the form. Anticipated Discharge Needs, OT/PT Anticipated Discharge to : Home, with family care, Home, with home health Anticipated Home Equipment : Walker Recommend Continued Therapy at Discharge : Yes Walker : Walker, front wheel ANGÉLICA LARSEN, PT - 10/01/2020 11:25 EST Burgin PT Charges PT Eval Low Complexity : 1 ANGÉLICA LARSEN, PT - 10/01/2020 11:25 EST documented in this encounter Plan of Treatment Not on file documented as of this encounter Visit Diagnoses Not on filedocumented in this encounter Care Teams Cnc Mill Programmer Relationship Specialty Start Date End Date Harris Quinn MD [address] [facility] [address] [place] [address] PCP - General Adolescent Medicine 01/12/24 Jackie Prado, PAPER FOLDING MACHINE OPERATOR [address] [facility] [address], [place] [address] Referring Physician Nurse Practitioner 01/12/24 documented as of this encounter
--- OUTSIDE RECORDS SUMMARY | 2025-05-17 12:54 | XMS_ITS | Encounter Summary ---
Author Organization [employer] Address [address] [place] [address] Care Team Providers Care Radiological Engineer Name Role Phone Harris Quinn MD Primary Care Provider + [phone] Jackie Prado PLANIMETER OPERATOR Unavailable + [phone] Encounter Details Date Type Department Care Team (Late st Contact Info) Description 10/03/2020 Transcribed Document [facility] [address] [place] [address] Stu Liang MD [address] [place] [address] [address] [place] [address] Social History Tobacco Use Types Packs/Day Years Used Date Smoking Tobacco: Never Assessed Sex and Gender Information Value Date Recorded Sex Assigned at Male 06/20/2024 10:08 AM CDT Legal Sex Male 7:36 AM DRAWER IN JACQUARD LOOM Gender Identity Male 06/20/2024 10:08 AM CDT Sexual Orientation Not on file documented as of this encounter Miscellaneous Notes * Cerner Conversion Note - Stu Liang MD - 10/03/2020 12:19 PM EST Patient: ELIZA GUARDADO Age: 65 years Sex: Male : 1955 Associated Diagnoses: None Author: STU LIANG MD-INT Subjective PCP: Dr. Harris Quinn DOA: 09/27/2020 DOD: 10/03/2020 HPI: Admitted with back pain and right [...] nerve root. There is contact of the N8vdwth root in the lateral recess.L3-L4: There is [...] stenosis. This contacts and displaces the right B7cmsze root. There is mild right foraminal narrowing. [...] at L5-S1.Images reviewed, interpreted, and dictated by aJquan Carey MD Operative Report DATE OF PROCEDURE: [...] with PT and OT. Hopefully DC tomorrow. 10/03/2020 Patient is awake alert responsive no distress. No chest pain or shortness of breath. Ambulating and pain is well controlled. Cleared by neurosurgery for discharge. Health Status Allergies: Allergic Reactions (Selected) No [...] mg, Oral, Daily Lovenox: 70 mg, SubCutaneous, [id number] MiraLax: 17 Gram, Oral, Daily, PRN: Constipation [...] hrs) Last Charted Minimum Maximum Temp 97.9 (OCT 03:) 97.9 (OCT 03) 98.0 (OCT 03) Mon HR 71 (OCT 03) 60 (OCT 03:30) 74 (OCT 03) Resp Rate 16 (OCT 03) 16 (OCT 02 20:41) 16 (OCT 02:41) SBP H 155 (OCT 03:) 124 (OCT 03:) H 155 (OCT 03) DBP L 56 (OCT 03:) L 46 (OCT 03) L 56 (OCT 02:) MAP 81 (OCT 03:) 66 (OCT 03:) 81 (OCT 03:) SpO2 97 (OCT 03) 94 (OCT 03:) 97 (OCT 03) General: Alert and oriented, No acute distress. [...] No focal deficits. Psychiatric: Cooperative. Results Review No Radiology Results FoundNo qualifying data available Impression and Plan Assessment and Plan: Diagnosis. DIAGNOSIS: Acute back pain with right radiculopathy, MRI abnormality is noted. S/p lumbar laminectomies and fusion surgery as outlined above on 09/30/2020. Degenerative disc disease and has had 2 back surgeries. Acute right lower extremity DVT as per outlying venous Doppler and documented in H&P. Will start Eliquis he probably needed at least for 6 months recommended follow-up with PCP Leukocytosis, likely due to steroid use. Improving Essential hypertension / Hyperlipidemia Osteoarthritis History of some kind of cardiac valve surgery in childhood DC instructions 1- DC home today, if okay with neurosurgery 2- Follow-up with PCP in 1 week 3- Follow-up with neurosurgery as recommended Discharge Medications (12) Active amLODIPine 5 mg oral tablet 5 mg = 1 Tab, Oral, Daily aspirin 81 mg oral delayed release tablet 81 mg = 1 Tab, Oral, Daily atorvastatin 80 mg oral tablet 40 mg = 0.5 Tab, Oral, At Bedtime bisoprolol-hydroCHLOROthiazide 10 mg-6.25 mg oral tablet 1 Tab, Oral, Daily cyclobenzaprine 10 mg oral tablet 10 mg = 1 Tab, PRN, Oral, TID dexAMETHasone 2 mg oral tablet See Instructions. Per neurosurgery recommendations diclofenac sodium 75 mg oral delayed release tablet 75 mg = 1 Tab, Oral, BID Eliquis 5 mg oral tablet 5 mg = 1 Tab, Oral, BID - 2 tablets that is 10 mg twice a day x7 days then 1 tablet twice a day and follow with PCP Fish Oil 1000 mg oral capsule 1,000 mg = 1 Cap, Oral, Daily gabapentin 300 mg oral capsule 300 mg = 1 Cap, Oral, At Bedtime olopatadine 0.1% ophthalmic solution 1 Drop, PRN, Eyes Both, BID Percocet 7.5/325 oral tablet 1 Tab, PRN, Oral, Q4H. Per neurosurgery recommendations. DC time spent 36 minutes CC DC summary to PCP, neurosurgery documented in this encounter Plan of Treatment Not on file documented as of this encounter Visit Diagnoses Not on filedocumented in this encounter Care Teams Radiological Engineer Relationship Specialty Start Date End Date Harris Quinn MD [address] [place] [address] [place] [address] PCP - General Adolescent Medicine 01/12/24 Jackie Prado, PLANIMETER OPERATOR [address] [place] [address], [facility] [address], [place] [id number] Referring Physician Nurse Practitioner 01/12/24 documented as of this encounter
--- OUTSIDE RECORDS SUMMARY | 2025-05-17 12:54 | XMS_ITS | Encounter Summary ---
Author Organization [employer] Address [address] [place] [address] Care Team Providers Care Mixer Blender Name Role Phone Harris Quinn MD Primary Care Provider + [phone] Jackie Prado ORDER PLANNER Unavailable + [phone] Encounter Details Date Type Department Care Team (Late st Contact Info) Description 10/01/2020 Transcribed Document [facility] Family Medicine [address] [place] [address] ProviderJerrica MD [address] [place] [address] Social History Tobacco Use Types Packs/Day Years Used Date Smoking Tobacco: Never Assessed Sex and Gender Information Value Date Recorded Sex Assigned at Male 06/20/2024 10:08 AM CDT Legal Sex Male 7:36 AM BRANCH SERVICE SPECIALIST Gender Identity Male 06/20/2024 10:08 AM CDT Sexual Orientation Not on file documented as of this encounter Miscellaneous Notes * Cerner Conversion Note - Historical ProviderMD - 10/01/2020 5:00 PM BRANCH SERVICE SPECIALIST Chart Check - Review Order Profile Entered On: 10/01/2020 18:58 EST Performed On: 10/01/2020 17:00 EST by Jessica Boyer RN Chart Check Powerplans Initiated/Discontinued as Appropriate : Yes All Active Orders Reviewed : Yes Jessica Boyer RN - 10/01/2020 18:58 EST Electronically signed by Bailey [facility] Conversion Senior Payroll Specialist Cerner at 03/08/2023 11:24 PM CDT documented in this encounter Plan of Treatment Not on file documented as of this encounter Visit Diagnoses Not on filedocumented in this encounter Care Teams Mixer Blender Relationship Specialty Start Date End Date Harris Quinn MD [address] [place] [facility] [address] [place] [address] PCP - General Adolescent Medicine 01/12/24 Jackie Prado, ORDER PLANNER [address] [place] [facility] [address], [place] [address] Referring Physician Nurse Practitioner 01/12/24 documented as of this encounter
--- OUTSIDE RECORDS SUMMARY | 2025-05-17 12:54 | XMS_ITS | Encounter Summary ---
Author Organization [employer] Address [address] [place] [address] Care Team Providers Care Personal Care Aide Name Role Phone Harris Quinn MD Primary Care Provider + [phone] Jackie Prado HABITAT BIOLOGIST Unavailable + [phone] Encounter Details Date Type Department Care Team (Late st Contact Info) Description 09/27/[address] 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 Sonu Alexis Date of admission 09/27/[address] Larios Transferring facility [facility] Chief complaint right leg and back pain History of present illness Patient is 65-year-old gentleman presents as a transfer from [facility] where he presented earlier today With severe thigh calf and right lower leg pain. Patient reports a chronic back problems. He takes Lortab on chronic basis He had prior couple of back surgeries Although none since 1998. He also takes Neurontin on chronic basis. He tells me for the past 4 to 6 weeks he developed worsening posterior right thigh pain which radiates towards the calf and all the way down to the foot. This has been more pronounced in the past 2 to 3 days. Worse with ambulation and weightbearing He does not report any significant numbness tingling or weakness of lower extremity. Denies bladder or bowel function control loss. Denies any injury trauma or recent falls Denies any fever chills chest pain shortness of air cough or sputum production. Denies any prior history of blood clots or DVTs. Denies any long trip or airline journeys Due to excruciating pain, he presented at [facility]. 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 He also underwent lower extremity venous duplex which showed acute right popliteal deep venous thrombosis per verbal report Patient received morphine, Decadron, and Lovenox in the emergency room at outlying facility. Dr. Palacios the neurosurgeon on-call requested Patient be transported here for further inpatient management and our service was therefore consulted. Patient just arrived here in room 650. His daughter is present at bedside. Patient still reports some pain although does not report any tingling numbness or weakness at the moment. Past medical history is significant for prior back surgeries x2 none since 1998, some sort of cardiac valve surgery when he was 11 years old hypertension, hyperlipidemia, and osteoarthritis Social history patient is , he has 1 daughter, denies alcohol tobacco or drug abuse Family history positive for heart disease negative for blood clots or DVTs His usual home medications he tells me he is taking Lortab, bisoprolol, Neurontin, aspirin, and Lipitor Health Status Allergies: Allergic Reactions (Selected) No Known Allergies, Allergies (1) Active Reaction No Known Allergies None Documented Current medications: (Selected) Inpatient Medications Ordered Colace: 100 mg, Oral, BID, PRN: Constipation Fish Oil: 1,000 mg, Oral, Daily Flexeril: 5 mg, Oral, TID, PRN: Spasms Lipitor: 40 mg, Oral, Daily Lovenox: 1 mg/kg, SubCutaneous, U12OTim MiraLax: 17 Gram, Oral, Daily, PRN: Constipation Roxicodone: 10 mg, Oral, Q4H, PRN: Pain (Moderate 4-6) Tylenol: 650 mg, Oral, Q4H, PRN: Pain (Mild 1-3) Zofran: 4 mg, IV Push, Q4H, PRN: Nausea amLODIPine: 5 mg, Oral, Daily bisoprolol-hydroCHLOROthiazide 10 mg-6.25 mg oral tablet: 1 Tab, Oral, Daily cloNIDine: 0.1 mg, Oral, Q6H, PRN: Hypertension dexAMETHasone: 4 mg, IV Push, Q8H gabapentin: 300 mg, Oral, At Bedtime morphine: 2 mg, IV Push, Q2H, PRN: Pain (Severe 7-10) olopatadine 0.1% ophthalmic solution: 1 Drop, Eyes Both, BID, PRN: Allergies Incomplete aspirin 81 mg oral delayed release tablet: 81 mg, 1 Tab, Oral, Daily Documented Medications Documented Fish Oil 1000 mg [...] solution 1 Drop, PRN, Eyes Both, BID , Medications (16) Active Scheduled: (7) amLODIPine 5 mg tab 5 mg 1 Tab, Oral, Daily atorvastatin 40 mg tab 40 mg 1 Tab, Oral, Daily bisoprolol/hctz 10/6.25 mg tab 1 Tab, Oral, Daily dexAMETHasone 4 mg, IV Push, Q8H enoxaparin 1 mg/kg, SubCutaneous, L25PZds gabapentin 300 mg cap 300 mg 1 Cap, Oral, At Bedtime omega-3 fish oil 1,000 mg cap 1,000 mg 1 Cap, Oral, Daily Continuous: (0) PRN: (9) acetaminophen 325 mg tab 650 mg 2 Tab, Oral, Q4H cloNIDine 0.1 mg tab 0.1 mg 1 Tab, Oral, Q6H cyclobenzaprine 10 mg tab 5 mg 0.5 Tab, Oral, TID docusate sodium 100 mg cap 100 mg 1 Cap, Oral, BID morphine 2 mg/1 ml inj 2 mg 1 mL, IV Push, Q2H olopatadine 0.1% ophth soln 5 mL 1 Drop, Eyes Both, BID ondansetron 4 mg/2 mL inj 4 mg 2 mL, IV Push, Q4H oxyCODONE 5 mg tab 10 mg 2 Tab, Oral, Q4H polyethylene glycol 3350 pwd 17 g pkt 17 Gram 1 Packet, Oral, Daily Problem list: No qualifying data available Objective VS/Measurements No qualifying data available General: No acute distress. Eye: Normal conjunctiva. HENT: Normocephalic. Neck: Supple, Non-tender, No carotid bruit, No jugular venous distention. Respiratory: Lungs are clear to auscultation, Respirations are non-labored, Breath sounds are equal. Cardiovascular: Regular rhythm, No gallop, S1+ S2 No S3 or S4 [place].. Gastrointestinal: Soft, Non-tender, Non-distended, Normal bowel sounds. Genitourinary: No costovertebral angle tenderness, No inguinal tenderness. Lymphatics: No lymphadenopathy neck, axilla, groin. Musculoskeletal: Normal range of motion, Normal strength, He has tenderness in the lower lumbar spine area as well as some in the right calf and right posterior thigh area. Integumentary: Warm, No rash. Neurologic: Alert, Oriented, Normal sensory, Normal motor function, No focal deficits. Psychiatric: Cooperative, Appropriate mood & affect, Normal judgment. 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 Furthermore, he was noted to have what appears to be acute right lower extremity popliteal deep venous thrombosis. His other medical problems include hypertension dyslipidemia and osteoarthritis Patient is being admitted at this time. Will initiate dexamethasone as well as therapeutic dose of Lovenox. Also add opioid And muscle relaxants. He will be seen by neurosurgical service. I have discussed CODE STATUS with the patient and he elected full CODE STATUS I have discussed plan of care with the patient as well as his daughter and they both expressed understanding. documented in this encounter Plan of Treatment Not on file documented as of this encounter Visit Diagnoses Not on filedocumented in this encounter Care Teams Personal Care Aide Relationship Specialty Start Date End Date Harris Qiunn MD [address] [place] [facility] [address] [place] [address] PCP - General Adolescent Medicine 01/12/24 Jackie Prado, LEORA [address] [place] [address] [place] [address] Referring Physician Nurse Practitioner 01/12/24 documented as of this encounter
--- OUTSIDE RECORDS SUMMARY | 2025-05-17 12:54 | XMS_ITS | Encounter Summary ---
Author Organization [employer] Address [address] [place] [address] Care Team Providers Care Seasoning Sprayer Name Role Phone Harris Quinn MD Primary Care Provider + [phone] Jackie Prado PYTHON CONSULTANT Unavailable + [phone] Encounter Details Date Type Department Care Team (Late st Contact Info) Description 10/06/2020 Transcribed Document [facility] Family Medicine [address] [place] [address] ProviderJerrica MD [address] [place], [place] [address] Social History Tobacco Use Types Packs/Day Years Used Date Smoking Tobacco: Never Assessed Sex and Gender Information Value Date Recorded Sex Assigned at Male 06/20/2024 10:08 AM CDT 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 Gender Identity Male 06/20/2024 10:08 AM CDT Sexual Orientation Not on file documented as of this encounter Miscellaneous Notes * Cerner Conversion Note - Historical ProviderMD - 10/06/2020 1:40 PM SERVICE DIRECTOR UM Authorization Entered On: 10/06/2020 13:40 EST Performed On: 10/06/2020 13:40 EST by Rema Dawn Rn-Utilization Review Primary Insurance Authorization Authorization and Policy Numbers : Insurance 1 Health Plan: [employer] [facility] Policy Number: [id number] Authorization Number: Insurance Primary Name : [employer] [facility] Policy Number: [id number] Authorization Status-Primary : Admit approved Reference Number-Primary : [id number] Number of Days Authorized-Primary : 10 Day(s) Authorized Service Begin Date-Primary : 09/27/2020 EST Authorized Service End Date-Primary : 10/07/2020 EST Authorization Comments-Primary : D/C SUMMARY FAXED PER LAINE SOUSA ENTERED IN STAR Historical Authorization Comments-Primary : Comment 1: Authorized per fax 09/30/2020 @ 1014. Approved inpatient stay x11 days. Next review due 10/08/2020. (Lyric Gerard, Airport Manager 09/30/2020 14:05) Comment 2: plan is for OR 09/30/2020; upgraded to IP, email to dt to update status, secure email sent to [facility] w/ demographics and initial packet attached (AUSTIN KENNEY, RN-Utilization Review 09/29/2020 14:46) Comment 3: EM TO UR TEAM TO UPGRADE TO IP IF PATIENT HAS SURGERY (Rema Dawn, Rn-Utilization Review 09/28/2020 12:09) Rema Dawn, Rn-Utilization Review - 10/06/2020 13:40 EST Electronically signed by Bailey [facility] Conversion Fha Underwriter Lakisha at 03/08/2023 11:46 PM CDT documented in this encounter Plan of Treatment Not on file documented as of this encounter Visit Diagnoses Not on filedocumented in this encounter Care Teams Seasoning Sprayer Relationship Specialty Start Date End Date Harris Quinn MD [address] [facility] [address] [place] [address] PCP - General Adolescent Medicine 01/12/24 Jackie Prado, PYTHON CONSULTANT [address] [facility] [address] [place] [address] Referring Physician Nurse Practitioner 01/12/24 documented as of this encounter
--- OUTSIDE RECORDS SUMMARY | 2025-05-17 12:54 | XMS_ITS | Encounter Summary ---
Author Organization [facility] Address [address] [place] [id number] Care Team Providers Care Assistant Department Manager Name Role Phone Harris Álvarez MD Primary Care Provider [phone] Jackie Prado [employer] Unavailable + [phone] Encounter Details Date Type Department Care Team (Late st Contact Info) Description 10/03/2020 Transcribed Document [facility] [place] [facility] Family Medicine [address] [place] [address] ProviderJerrica MD [address] [place] [address] Social History Tobacco Use Types Packs/Day Years Used Date Smoking Tobacco: Never Assessed Sex and Gender Information Value Date Recorded Sex Assigned at Male 06/20/2024 10:08 AM CDT 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 Gender Identity Male 06/20/2024 10:08 AM CDT Sexual Orientation Not on file documented as of this encounter Miscellaneous Notes * Cerner Conversion Note - Jerrica ProviderMD - 10/03/2020 2:25 PM HOUSEKEEPING ASSISTANT [facility] ELIAZAR Malone [address] ELIZA GUARDADO :1955 Visit Time:09/29/2020 Your Visit Summary Your Care Team Admitting Physician - HERMINIA KNOWLES MD-INT Attending Physician - HERMINIA KNOWLES MD-INT Primary Care Physician - HARRIS ÁLVAREZ (REF)MD-[facility] Referring Physician - KNOWLES, HERMINIA K, MD-INT Your Diagnosis Chronic embolism and thrombosis of unspecified vein, Chronic embolism and thrombosis of unspecified vein Pain What to do next Instructions From Your Care Team Please STOP taking these home medications: 1. [place] (Acetaminophen -Hydrocodone) 2. Diclofenac Diet after Discharge: Resume usual diet as tolerated Activity after Discharge: As tolerated, No strenuous activity Lifting Restrictions: No heavy lifting over 10 pounds Weight Bearing: Full weight bearing Driving after Discharge: Do not drive Showering/Bathing: May shower, No tub bathing, soaking or swimming; Do not allow water to saturate incision, cover with plastic wrap as needed Notify Provider of: Fever above 100.5 for 24 hours, increase in pain, redness, swelling, drainage or foul smell at incision site Wound/Incision Care after Discharge: Keep operative site/wound site clean and dry, Change dressing with dry dressing daily and as needed Medical Equipment for Home Use: Home Health Services: Community Services: Discharge Follow Up Instructions: Follow-Up Appointments Follow Up with TROY MCCLURE When 11/10/2020 11:30 AM EST Comments Please go to [facility] at 10:30 for x-rays before going to your appointment at 11:30. Where: [address] [place] [address] [phone]- Business (1) Follow Up with TROY MCCLURE When 10/20/2020 03:30 PM EST Comments Appointment has been made for staple removal Where: [address] [place] [address] [phone]- Business (1) Medications What How Much When Instructions Next Dose acetaminophen-oxyCODONE (Percocet 7.5/ 325 oral tablet) 1 Tablet(s) Oral Every 4 Hours as needed for for pain Printed Prescription apixaban (Eliquis 5 mg oral tablet) See instructions 2 tab oral twice daily for 7 days then 1 tab oral twice daily. [facility] as directed cyclobenzaprine (cyclobenzaprine 10 mg oral tablet) 1 Tablet(s) Oral Three Times A Day as needed for as needed for spasm Refills: 1 Printed Prescription as needed dexAMETHasone (dexAMETHasone 2 mg oral tablet) See instructions 1 tab oral twice daily x 3 days, then 1 tablet daily x 3 days, then stop Pickup at [facility] tonight amLODIPine (amLODIPine 5 mg oral tablet) 1 Tablet(s) Oral Every Day in am aspirin (aspirin 81 mg oral delayed release tablet) 1 Tablet(s) Oral Every Day in am atorvastatin (atorvastatin 80 mg oral tablet) 0.5 Tablet(s) Oral At Bedtime tonight bisoprolol-hydrochlorothiazide (bisoprolol-hydroCHLOROthiazide 10 mg-6.25 mg oral tablet) 1 Tablet(s) Oral Every Day in am gabapentin (gabapentin 300 mg oral capsule) 1 Capsule(s) Oral At Bedtime tonight olopatadine ophthalmic (olopatadine 0.1% ophthalmic solution) 1 Drop(s) Eyes Both Two Times A Day as needed for Allergies tonight if needed omega-3 polyunsaturated fatty acids (Fish Oil 1000 mg oral capsule) 1 Capsule(s) Oral Every Day in am Pharmacy Information [facility] [place] [facility]: [address] [place], [place] [id number] [phone] Take your medications faithfully. Do NOT skip medication. Do NOT stop taking medications without the direction of a physician. Carry a list of your medications with you at all times, and take this medication list with you to your first follow up visit. Report any side effects. Avoid herbal remedies unless discussed with your physician. As part of your treatment plan, your physician may have prescribed a limited course of a controlled substance. This medication may be given to help people with moderate or severe pain or for other medical conditions, but there are risks involved with treatment. Common side effects may include nausea, constipation, drowsiness, sweating, itching, dry mouth, and rash. More serious side effects may include cognitive and motor impairment, like problems with thinking, concentrating, alertness, and movement (e.g. slowed reflexes), and driving and operating heavy machinery can be dangerous. It is important for you to talk to your physician if you have these side effects or questions. These controlled substances can produce physical dependence and be habit-forming if taken for an extended period of time, which means that the body has gotten used to them and may experience withdrawal symptoms if they are abruptly stopped. Withdrawal symptoms can include runny nose, sweating, goose bumps, diarrhea, abdominal cramping, rapid heartbeat, difficulty sleeping, and nervousness. Please dispose of unused and medications per your retail pharmacy guidance. Allergies No Known Allergies Immunizations This Visit No Immunizations Found Education Materials Spinal Fusion, Adult Spinal fusion is a procedure to make two or more bones in your spine (vertebrae) grow together (fuse). This procedure stops the two bones from rubbing on each other. This can help: ??? Lessen pain. ??? Prevent your spine from getting weaker or changing shape. Bone material (graft) will be put in between the spine bones that need to grow together. What happens before the procedure? Staying hydrated Follow instructions from your doctor about hydration, which may include: ??? Up to 2 hours before the procedure ??? you may continue to drink clear liquids, such as: ? Water. ? Clear fruit juice. ? Black coffee. ? Plain tea. Eating and drinking restrictions Follow instructions from your doctor about eating and drinking, which may include: ??? 8 hours before the procedure ??? stop eating heavy meals or foods such as meat, fried foods, or fatty foods. ??? 6 hours before the procedure ??? stop eating light meals or foods, such as toast or cereal. ??? 6 hours before the procedure ??? stop drinking milk or drinks that have milk in them. ??? 2 hours before the procedure ??? stop drinking clear liquids. Medicines ??? Ask your doctor about: ? Changing or stopping your normal medicines. This is important if you take diabetes medicines or blood thinners. ? Taking medicines such as aspirin and ibuprofen. These medicines can thin your blood. Do not take these medicines unless your doctor tells you to take them. ? Taking wkfu-tod-akezjba medicines, vitamins, herbs, and supplements. ??? You may be given antibiotic medicine to help prevent infection. General instructions ??? Ask your doctor how your surgery site will be marked. ??? You will have blood and pee (urine) samples taken. ??? You may also have tests that take pictures, such as: ? X-rays. ? CT scan. ? MRI. ??? Plan to have someone take you home from the hospital or clinic. ??? Plan to have a responsible adult care for you for at least 24 hours after you leave the hospital or clinic. This is important. ??? Do not use any products that have nicotine or tobacco in them. These include cigarettes and e-cigarettes. These can make your bones take longer to heal. If you need help quitting, ask your doctor. What happens during the procedure? To lower your risk of infection: ? Your health care team will wash or sanitize their hands. ? Your skin will be washed with soap. ? Hair may be removed where you will have surgery. ??? An IV tube will be put into one of your veins. ??? You will be given one or more of the following: ? A medicine to help you relax (sedative). ? A medicine to make you fall asleep (general anesthetic). ??? If bone from another part of your body is being used to fill the space between the bones of your spine: ? A surgery cut (incision) will be made over the site of the bone graft. ? A small part of the bone will be taken out. ??? A surgery cut will be made over the spine bones that will be worked on. This cut may be in one of these areas: ? Your back. ? Your belly (abdomen). ? Your side. ??? The muscles will be moved over so the doctor can see the bones of your spine. ??? If you are having this procedure because a disk in your spine bulges out too far (herniated disk), part of the disk will be taken out. ??? The space between the bones of your spine will be filled with one of these: ? Bone from another part of your body. ? Bone from someone else (bone donor). ? Bone that is not real (is artificial). ??? Screws and rods or metal plates may be used in the bones. This is to keep the spine bones still while they grow together. ??? Your muscles will be moved back into place. ??? A small tube (drain) may be put near your surgery cut(s) to help drain extra fluid. ??? Your surgery cut(s) will be closed. ??? A bandage (dressing) may be used to cover your surgery cut(s). The procedure may vary among doctors and hospitals. What happens after the procedure? Your blood pressure, heart rate, breathing rate, and blood oxygen level will be checked until the medicines you were given have worn off. ??? You will: ? Be given medicine for pain if you need it. ? Keep getting fluids and medicines through an IV tube. ? Be helped to turn in bed often by log rolling. This is when you move your whole body without twisting your back. ? Be taught how to move the right way and how to stand and walk. ??? You may be given a brace to wear while you heal. ??? You may have to wear compression stockings. These stockings help to prevent blood clots. They also lessen swelling in your legs. ??? Do not drive for 24 hours if you were given a medicine to help you relax. Summary ??? Spinal fusion is a procedure to make two or more of the bones in your spine (vertebrae) grow together (fuse). ??? Before the procedure, follow instructions from your doctor about what you can eat, drink, and take for medicine. ??? After surgery, you will be helped to turn in bed often without twisting your back. This is called log rolling. You will also be taught how to move, stand, and walk the right way. This information is not intended to replace advice given to you by your health care provider. Make sure you discuss any questions you have with your health care provider. Document Released: 03/02/2012 Document Revised: 01/03/2020 Document Reviewed: 02/21/2018 [employer] Patient Education ?? 2020 [employer]. dexamethasone (oral) (dex a METH a sone) [place], Dexamethasone Intensol, DexPak 10 Day Taperpak, DexPak 13 DayTaperpak, DexPak 6 DayTaperpak What is the most important information I should know about dexamethasone? You should not use this medicine if you have a fungal infection anywhere in your body. Tell your doctor about all your medical conditions, and all the medicines you are using. There are many other diseases that can be affected by steroid use, and many other medicines that can interact with steroids. What is dexamethasone? Dexamethasone is a steroid that prevents the release of substances in the body that cause inflammation. Dexamethasone is used to treat many different conditions such as allergic disorders, skin conditions, ulcerative colitis, arthritis, lupus, psoriasis, or breathing disorders. Dexamethasone may also be used for purposes not listed in this medication guide. What should I discuss with my healthcare provider before taking dexamethasone? You should not use dexamethasone if you are allergic to it, or if you have: ?? a fungal infection anywhere in your body. Tell your doctor if you have ever had: ?? liver disease (such as cirrhosis); ?? kidney disease; ?? a thyroid disorder; ?? malaria; ?? tuberculosis; ?? osteoporosis; ?? a muscle disorder such as myasthenia gravis; ?? diabetes (steroid medicine may increase glucose levels in your blood or urine); ?? glaucoma or cataracts; ?? herpes infection of the eyes; ?? stomach ulcers, ulcerative colitis, diverticulitis, inflammatory bowel disease; ?? depression or mental illness; ?? congestive heart failure; or ?? high blood pressure. Steroid medication affects your immune system. You may get infections more easily. Steroids can also worsen or reactivate an infection you've already had. Tell your doctor about any illness or infection you have had within the past several weeks. It is not known whether this medicine will harm an unborn baby. Tell your doctor if you are . You should not breast-feed while using dexamethasone. How should I take dexamethasone? Follow all directions on your prescription label and read all medication guides or instruction sheets. Your doctor may occasionally change your dose. Use the medicine exactly as directed. Your dose needs may change due to surgery, illness, stress, or a medical emergency. Tell your doctor about any such situation that affects you. This medicine can affect the results of certain medical tests. Tell any doctor who treats you that you are using dexamethasone. Do not stop using dexamethasone suddenly, or you could have unpleasant withdrawal symptoms. Ask your doctor how to safely stop using this medicine. In case of emergency, wear or carry medical identification to let others know you use dexamethasone. Store at room temperature away from moisture and heat. What happens if I miss a dose? Call your doctor for instructions if you miss a dose of dexamethasone. What happens if I overdose? Seek emergency medical attention or call the Poison Help line at . An overdose of dexamethasone is not expected to produce life threatening symptoms. terminal superintendent use of high doses can lead to thinning skin, easy bruising, changes in body fat (especially in your face, neck, back, and waist), increased acne or facial hair, menstrual problems, impotence, or loss of interest in sex. What should I avoid while taking dexamethasone? Avoid being near people who are sick or have infections. Call your doctor for preventive treatment if you are exposed to chickenpox or measles. These conditions can be serious or even fatal in people who are using steroid medicine. Avoid drinking alcohol while you are taking dexamethasone. Do not receive a 'live' vaccine while using dexamethasone. The vaccine may not work as well during this time, and may not fully protect you from disease. Live vaccines include measles, mumps, rubella (MMR), polio, rotavirus, typhoid, yellow fever, varicella (chickenpox), and zoster (shingles). What are the possible side effects of dexamethasone? Get emergency medical help if you have signs of an allergic reaction: hives; difficulty breathing; swelling of your face, lips, tongue, or throat. Call your doctor at once if you have: ?? muscle tightness, weakness, or limp feeling; ?? blurred vision, tunnel vision, eye pain, or seeing halos around lights; ?? shortness of breath (even with mild exertion), swelling, rapid weight gain; ?? severe depression, unusual thoughts or behavior; ?? a seizure (convulsions); ?? bloody or tarry stools, coughing up blood; ?? fast or slow heart rate, weak pulse; ?? pancreatitis--severe pain in your upper stomach spreading to your back, nausea and vomiting; ?? low potassium level--leg cramps, constipation, irregular heartbeats, fluttering in your chest, increased thirst or urination, numbness or tingling; or ?? increased blood pressure--severe headache, blurred vision, pounding in your neck or ears, anxiety, nosebleed. Dexamethasone can affect growth in children. Tell your doctor if your child is not growing at a normal rate while using this medicine. Common side effects may include: ?? fluid retention (swelling in your hands or ankles); ?? increased appetite; ?? mood changes, trouble sleeping; ?? skin rash, bruising or discoloration; ?? acne, increased sweating, increased hair growth; ?? headache, dizziness; ?? nausea, vomiting, upset stomach; ?? changes in your menstrual periods; or ?? changes in the shape or location of body fat (especially in your arms, legs, face, neck, breasts, and waist). This is not a complete list of side effects and others may occur. Call your doctor for medical advice about side effects. You may report side effects to FDA at 8-339-XGD-5844. What other drugs will affect dexamethasone? Sometimes it is not safe to use certain medications at the same time. Some drugs can affect your blood levels of other drugs you take, which may increase side effects or make the medications less effective. Tell your doctor about all your current medicines. Many drugs can affect dexamethasone, especially: ?? an antibiotic or antifungal medicine; ?? control pills or hormone replacement therapy; ?? insulin or diabetes medications you take by mouth; ?? medicine to treat dementia or Parkinson's disease; ?? a blood thinner--warfarin, Coumadin, Jantoven; or ?? NSAIDs (nonsteroidal anti-inflammatory drugs)--aspirin, ibuprofen (Advil, Motrin), naproxen (Aleve), celecoxib, diclofenac, indomethacin, meloxicam, and others. This list is not complete and many other drugs may affect dexamethasone. This includes prescription and qcps-ynw-kzsihko medicines, vitamins, and herbal products. Not all possible drug interactions are listed here. Where can I get more information? Your pharmacist can provide more information about dexamethasone. Remember, keep this and all other medicines out of the reach of children, never share your medicines with others, and use this medication only for the indication prescribed. Every effort has been made to ensure that the information provided by [employer]. ('[employer]') is accurate, up-to-date, and complete, but no guarantee is made to that effect. Drug information contained herein may be time sensitive. [employer] information has been compiled for use by healthcare practitioners and consumers in the [place] and therefore [employer] does not warrant that uses outside of the [place] are appropriate, unless specifically indicated otherwise. [employer] drug information does not endorse drugs, diagnose patients or recommend therapy. [employer] drug information is an informational resource designed to assist licensed healthcare practitioners in caring for their patients and/or to serve consumers viewing this service as a supplement to, and not a substitute for, the expertise, skill, knowledge and judgment of healthcare practitioners. The absence of a warning for a given drug or drug combination in no way should be construed to indicate that the drug or drug combination is safe, effective or appropriate for any given patient. [employer] does not assume any responsibility for any aspect of healthcare administered with the aid of information [employer] provides. The information contained herein is not intended to cover all possible uses, directions, precautions, warnings, drug interactions, allergic reactions, or adverse effects. If you have questions about the drugs you are taking, check with your doctor, nurse or pharmacist. Copyright 2195-5811 [employer]. Version: 7.01. Revision Date: 03/15/2018. apixaban (a PIX a ban) Luis Antonio What is the most important information I should know about apixaban? Apixaban increases your risk of severe or fatal bleeding, especially if you take certain medicines at the same time (including some aluu-zbv-fogqsgb medicines). It is very important to tell your doctor about all medicines you have recently used. Call your doctor at once if you have signs of bleeding such as: swelling, pain, feeling very weak or dizzy, bleeding gums, nosebleeds, heavy menstrual periods or abnormal vaginal bleeding, blood in your urine, bloody or tarry stools, coughing up blood or vomit that looks like coffee grounds, or any bleeding that will not stop. Apixaban can cause a very serious blood clot around your spinal cord if you undergo a spinal tap or receive spinal anesthesia (epidural), especially if you have a genetic spinal defect, if you have a spinal catheter in place, if you have a history of spinal surgery or repeated spinal taps, or if you are also using other drugs that can affect blood clotting. This type of blood clot can lead to long-term or permanent paralysis. Get emergency medical help if you have symptoms of a spinal cord blood clot such as back pain, numbness or muscle weakness in your lower body, or loss of bladder or bowel control. Do not stop taking apixaban unless your doctor tells you to. Stopping suddenly can increase your risk of blood clot or stroke. What is apixaban? Apixaban is used to lower the risk of stroke caused by a blood clot in people with a heart rhythm disorder called atrial fibrillation. Apixaban is also used after hip or knee replacement surgery to prevent a type of blood clot called deep vein thrombosis (DVT), which can lead to blood clots in the lungs (pulmonary embolism). Apixaban is also used to treat DVT or pulmonary embolism (PE), and to lower your risk of having a repeat DVT or PE. Apixaban may also be used for purposes not listed in this medication guide. What should I discuss with my healthcare provider before taking apixaban? You should not take apixaban if you are allergic to it, or if you have active bleeding from a surgery, injury, or other cause. Apixaban may cause you to bleed more easily, especially if you have a bleeding disorder that is inherited or caused by disease. Tell your doctor if you have an artificial heart valve, or if you have ever had: ?? liver or kidney disease; ?? if you are older than 80; or ?? if you weigh less than 132 pounds (60 kilograms). Apixaban can cause a very serious blood clot around your spinal cord if you undergo a spinal tap or receive spinal anesthesia (epidural). This type of blood clot could cause long-term paralysis, and may be more likely to occur if: ?? you have a spinal catheter in place or if a catheter has been recently removed; ?? you have a history of spinal surgery or repeated spinal taps; ?? you have recently had a spinal tap or epidural anesthesia; ?? you are taking an NSAID (nonsteroidal anti-inflammatory drug)--aspirin, ibuprofen (Advil, Motrin), naproxen (Aleve), diclofenac, indomethacin, meloxicam, and others; or ?? you are using other medicines to treat or prevent blood clots. Taking apixaban may increase the risk of bleeding while you are or during your delivery. Tell your doctor if you are or plan to become . You should not breast-feed while using this medicine. How should I take apixaban? Follow all directions on your prescription label and read all medication guides or instruction sheets. Your doctor may occasionally change your dose. Use the medicine exactly as directed. You may take apixaban with or without food. If you cannot swallow a tablet whole, crush and mix it with water, apple juice, or a spoonful of applesauce. Swallow the mixture right away without chewing. Do not save it for later use. A crushed tablet mixture may also be given through a nasogastric (NG) feeding tube. Read and carefully follow any Instructions for Use provided with your medicine. Ask your doctor or pharmacist if you do not understand these instructions. Apixaban can make it easier for you to bleed, even from a minor injury. Seek medical attention if you have bleeding that will not stop. If you need surgery or dental work, tell the doctor or dentist ahead of time if you have taken apixaban within the past 24 hours. You may need to stop taking apixaban for a short time. Do not stop taking apixaban unless your doctor tells you to. Stopping suddenly can increase your risk of blood clot or stroke. If you stop taking apixaban for any reason, your doctor may prescribe another medication to prevent blood clots until you start taking apixaban again. Store at room temperature away from moisture and heat. What happens if I miss a dose? Take the missed dose on the same day you remember it. Take your next dose at the regular time and stay on your twice-daily schedule. Do not take two doses at one time. Get your prescription refilled before you run out of medicine completely. What happens if I overdose? Seek emergency medical attention or call the Poison Help line at . What should I avoid while taking apixaban? Avoid activities that may increase your risk of bleeding or injury. Use extra care to prevent bleeding while shaving or brushing your teeth. What are the possible side effects of apixaban? Get emergency medical help if you have signs of an allergic reaction: hives; chest pain, wheezing, difficult breathing; feeling light-headed; swelling of your face, lips, tongue, or throat. Also seek emergency medical attention if you have symptoms of a spinal blood clot: back pain, numbness or muscle weakness in your lower body, or loss of bladder or bowel control. Call your doctor at once if you have: ?? easy bruising, unusual bleeding (nose, mouth, vagina, or rectum), bleeding from wounds or needle injections, any bleeding that will not stop; ?? heavy menstrual periods; ?? headache, dizziness, weakness, feeling like you might pass out; ?? urine that looks red, pink, or brown; or ?? black or bloody stools, coughing up blood or vomit that looks like coffee grounds. This is not a complete list of side effects and others may occur. Call your doctor for medical advice about side effects. You may report side effects to FDA at 7-783-UKG-8053. What other drugs will affect apixaban? Sometimes it is not safe to use certain medications at the same time. Some drugs can affect your blood levels of other drugs you take, which may increase side effects or make the medications less effective. Many other drugs (including some faqo-zbt-ofqjhsp medicines) can increase your risk of bleeding or blood clots, or your risk of developing blood clots around the brain or spinal cord during a spinal tap or epidural. It is very important to tell your doctor about all medicines you have recently used, especially: ?? any other medicines to treat or prevent blood clots; ?? a blood thinner such as heparin or warfarin (Coumadin, Jantoven); ?? an antidepressant; or ?? an NSAID (nonsteroidal anti-inflammatory drug) used parts counterman. This list is not complete and many other drugs may affect apixaban. This includes prescription and wfcq-pwv-vnbfxha medicines, vitamins, and herbal products. Not all possible drug interactions are listed here. Where can I get more information? Your pharmacist can provide more information about apixaban. Remember, keep this and all other medicines out of the reach of children, never share your medicines with others, and use this medication only for the indication prescribed. Every effort has been made to ensure that the information provided by [employer] is accurate, up-to-date, and complete, but no guarantee is made to that effect. Drug information contained herein may be time sensitive. [employer] information has been compiled for use by healthcare practitioners and consumers in the [place] and therefore [employer] does not warrant that uses outside of the [place] are appropriate, unless specifically indicated otherwise. [employer]'s drug information does not endorse drugs, diagnose patients or recommend therapy. [employer] drug information is an informational resource designed to assist licensed healthcare practitioners in caring for their patients and/or to serve consumers viewing this service as a supplement to, and not a substitute for, the expertise, skill, knowledge and judgment of healthcare practitioners. The absence of a warning for a given drug or drug combination in no way should be construed to indicate that the drug or drug combination is safe, effective or appropriate for any given patient. [employer] does not assume any responsibility for any aspect of healthcare administered with the aid of information [employer] provides. The information contained herein is not intended to cover all possible uses, directions, precautions, warnings, drug interactions, allergic reactions, or adverse effects. If you have questions about the drugs you are taking, check with your doctor, nurse or pharmacist. Copyright 2131-7847 [employer]. Version: 4.01. Revision Date: 05/11/2019. acetaminophen and oxycodone (a SEET a MIN oh fen and OX i KOE done) Endocet 10/325, Endocet 2.5/325, Endocet 5/325, Endocet 7.5/325, Nalocet, Percocet, Primlev What is the most important information I should know about acetaminophen and oxycodone? MISUSE OF OPIOID MEDICINE CAN CAUSE ADDICTION, OVERDOSE, OR . Keep the medication in a place where others cannot get to it. An overdose of acetaminophen can damage your liver or cause . Call your doctor at once if you have pain in your upper stomach, loss of appetite, dark urine, or jaundice (yellowing of your skin or eyes). Taking opioid medicine during may cause life-threatening withdrawal symptoms in the . Fatal side effects can occur if you use opioid medicine with alcohol, or with other drugs that cause drowsiness or slow your breathing. Stop taking this medicine and call your doctor right away if you have skin redness or a rash that spreads and causes blistering and peeling. What is acetaminophen and oxycodone? Acetaminophen and oxycodone is a combination medicine used to relieve moderate to severe pain. Acetaminophen and oxycodone may also be used for purposes not listed in this medication guide. What should I discuss with my healthcare provider before taking acetaminophen and oxycodone? You should not use this medicine if you are allergic to acetaminophen or oxycodone, or if you have: ?? severe asthma or breathing problems; or ?? a blockage in your stomach or intestines. Tell your doctor if you have ever had: ?? breathing problems, sleep apnea; ?? liver disease; ?? a drug or alcohol addiction; ?? kidney disease; ?? a head injury or seizures; ?? urination problems; or ?? problems with your thyroid, pancreas, or gallbladder. If you use opioid medicine while you are , your baby could become dependent on the drug. This can cause life-threatening withdrawal symptoms in the baby after it is born. Babies born dependent on opioids may need medical treatment for several weeks. Do not breastfeed. This medicine can pass into breast milk and cause drowsiness, breathing problems, or in a nursing baby. How should I take acetaminophen and oxycodone? Follow all directions on your prescription label. Never take this medicine in larger amounts, or for longer than prescribed. An overdose can damage your liver or cause . Tell your doctor if you feel an increased urge to use more of this medicine. Never share this medicine with another person, especially someone with a history of drug abuse or addiction. MISUSE CAN CAUSE ADDICTION, OVERDOSE, OR . Keep the medicine in a place where others cannot get to it. Selling or giving away acetaminophen and oxycodone is against the law. Measure liquid medicine carefully. Use the dosing syringe provided, or use a medicine dose-measuring device (not a kitchen spoon). If you need surgery or medical tests, tell the doctor ahead of time that you are using this medicine. You should not stop using this medicine suddenly. Follow your doctor's instructions about tapering your dose. Store at room temperature away from moisture and heat. Keep track of your medicine. You should be aware if anyone is using it improperly or without a prescription. Do not keep leftover opioid medication. Just one dose can cause in someone using this medicine accidentally or improperly. Ask your pharmacist where to locate a drug take-back disposal program. If there is no take-back program, flush the unused medicine down the toilet. What happens if I miss a dose? Since this medicine is used for pain, you are not likely to miss a dose. Skip any missed dose if it is almost time for your next dose. Do not use two doses at one time. What happens if I overdose? Seek emergency medical attention or call the Poison Help line at . An overdose of acetaminophen and oxycodone can be fatal. The first signs of an acetaminophen overdose include loss of appetite, nausea, vomiting, stomach pain, sweating, and confusion or weakness. Later symptoms may include pain in your upper stomach, dark urine, and yellowing of your skin or the whites of your eyes. Overdose can also cause severe muscle weakness, pinpoint pupils, very slow breathing, extreme drowsiness, or coma. What should I avoid while taking acetaminophen and oxycodone? Avoid driving or operating machinery until you know how this medicine will affect you. Dizziness or drowsiness can cause falls, accidents, or severe injuries. Do not drink alcohol. Dangerous side effects or could occur. Ask a doctor or pharmacist before using any other medicine that may contain acetaminophen (sometimes abbreviated as APAP). Taking certain medications together can lead to a fatal overdose. What are the possible side effects of acetaminophen and oxycodone? Get emergency medical help if you have signs of an allergic reaction: hives; difficulty breathing; swelling of your face, lips, tongue, or throat. Opioid medicine can slow or stop your breathing, and may occur. A person caring for you should seek emergency medical attention if you have slow breathing with long pauses, blue colored lips, or if you are hard to wake up. In rare cases, acetaminophen may cause a severe skin reaction that can be fatal. This could occur even if you have taken acetaminophen in the past and had no reaction. Stop taking this medicine and call your doctor right away if you have skin redness or a rash that spreads and causes blistering and peeling. Call your doctor at once if you have: ?? noisy breathing, sighing, shallow breathing, breathing that stops during sleep; ?? a light-headed feeling, like you might pass out; ?? weakness, tiredness, fever, unusual bruising or bleeding; ?? confusion, unusual thoughts or behavior; ?? problems with urination; ?? liver problems--nausea, upper stomach pain, tiredness, loss of appetite, dark urine, rita-colored stools, jaundice (yellowing of the skin or eyes); or ?? low cortisol levels-- nausea, vomiting, loss of appetite, dizziness, worsening tiredness or weakness. Seek medical attention right away if you have symptoms of serotonin syndrome, such as: agitation, hallucinations, fever, sweating, shivering, fast heart rate, muscle stiffness, twitching, loss of coordination, nausea, vomiting, or diarrhea. Serious side effects may be more likely in older adults and those who are overweight, malnourished, or debilitated. Long-term use of opioid medication may affect fertility (ability to have children) in men or women. It is not known whether opioid effects on fertility are permanent. Common side effects include: ?? dizziness, drowsiness, feeling tired; ?? feelings of extreme happiness or sadness; ?? nausea, vomiting, stomach pain; ?? constipation; or ?? headache. This is not a complete list of side effects and others may occur. Call your doctor for medical advice about side effects. You may report side effects to FDA at 5-629-RJZ-1088. What other drugs will affect acetaminophen and oxycodone? You may have breathing problems or withdrawal symptoms if you start or stop taking certain other medicines. Tell your doctor if you also use an antibiotic, antifungal medication, heart or blood pressure medication, seizure medication, or medicine to treat HIV or hepatitis C. Opioid medication can interact with many other drugs and cause dangerous side effects or . Be sure your doctor knows if you also use: ?? cold or allergy medicines, bronchodilator asthma/COPD medication, or a diuretic ('water pill'); ?? medicines for motion sickness, irritable bowel syndrome, or overactive bladder; ?? other narcotic medications--opioid pain medicine or prescription cough medicine; ?? a sedative like Valium--diazepam, alprazolam, lorazepam, Xanax, Klonopin, Versed, and others; ?? drugs that make you sleepy or slow your breathing--a sleeping pill, muscle relaxer, medicine to treat mood disorders or mental illness; ?? drugs that affect serotonin levels in your body--a stimulant, or medicine for depression, Parkinson's disease, migraine headaches, serious infections, or nausea and vomiting. This list is not complete. Other drugs may affect acetaminophen and oxycodone, including prescription and spiv-pae-ruxwyaj medicines, vitamins, and herbal products. Not all possible interactions are listed here. Where can I get more information? Your doctor or pharmacist can provide more information about acetaminophen and oxycodone. Remember, keep this and all other medicines out of the reach of children, never share your medicines with others, and use this medication only for the indication prescribed. Every effort has been made to ensure that the information provided by [employer] is accurate, up-to-date, and complete, but no guarantee is made to that effect. Drug information contained herein may be time sensitive. [employer] information has been compiled for use by healthcare practitioners and consumers in the [place] and therefore [employer] does not warrant that uses outside of the [place] are appropriate, unless specifically indicated otherwise. [employer] drug information does not endorse drugs, diagnose patients or recommend therapy. [employer] drug information is an informational resource designed to assist licensed healthcare practitioners in caring for their patients and/or to serve consumers viewing this service as a supplement to, and not a substitute for, the expertise, skill, knowledge and judgment of healthcare practitioners. The absence of a warning for a given drug or drug combination in no way should be construed to indicate that the drug or drug combination is safe, effective or appropriate for any given patient. [facility] does not assume any responsibility for any aspect of healthcare administered with the aid of information [facility] provides. The information contained herein is not intended to cover all possible uses, directions, precautions, warnings, drug interactions, allergic reactions, or adverse effects. If you have questions about the drugs you are taking, check with your doctor, nurse or pharmacist. Copyright 1869-9337 [facility]. Version: .. Revision Date: 12/12/2019. cyclobenzaprine (janel sanz) Gloria, Rosalinda Pac with Cyclobenzaprine, Fexmid What is the most important information I should know about cyclobenzaprine? You should not use cyclobenzaprine if you have a thyroid disorder, heart block, congestive heart failure, a heart rhythm disorder, or you have recently had a heart attack. Do not use cyclobenzaprine if you have taken an MAO inhibitor in the past 14 days, such as isocarboxazid, linezolid, phenelzine, rasagiline, selegiline, or tranylcypromine. What is cyclobenzaprine? Cyclobenzaprine is a muscle relaxant. It works by blocking nerve impulses (or pain sensations) that are sent to your brain. Cyclobenzaprine is used together with rest and physical therapy to relieve muscle spasms caused by painful conditions such as an injury. Cyclobenzaprine may also be used for purposes not listed in this medication guide. What should I discuss with my healthcare provider before taking cyclobenzaprine? You should not use cyclobenzaprine if you are allergic to it, or if you have: ?? a thyroid disorder; ?? heart block, heart rhythm disorder, congestive heart failure; or ?? if you have recently had a heart attack. Cyclobenzaprine is not approved for use by anyone younger than 15 years old. Do not use cyclobenzaprine if you have taken an MAO inhibitor in the past 14 days. A dangerous drug interaction could occur. MAO inhibitors include isocarboxazid, linezolid, phenelzine, rasagiline, selegiline, and tranylcypromine. Some medicines can interact with cyclobenzaprine and cause a serious condition called serotonin syndrome. Be sure your doctor knows if you also take stimulant medicine, opioid medicine, herbal products, or medicine for depression, mental illness, Parkinson's disease, migraine headaches, serious infections, or prevention of nausea and vomiting. Ask your doctor before making any changes in how or when you take your medications. Tell your doctor if you have ever had: ?? liver disease; ?? glaucoma; ?? enlarged prostate; or ?? problems with urination. It is not known whether this medicine will harm an unborn baby. Tell your doctor if you are or plan to become . It may not be safe to breast-feed while using this medicine. Ask your doctor about any risk. Older adults may be more sensitive to the effects of this medicine. How should I take cyclobenzaprine? Follow all directions on your prescription label and read all medication guides or instruction sheets. Your doctor may occasionally change your dose. Use the medicine exactly as directed. Cyclobenzaprine is usually taken once daily for only 2 or 3 weeks. Follow your doctor's dosing instructions very carefully. Swallow the capsule whole and do not crush, chew, break, or open it. Take the medicine at the same time each day. Call your doctor if your symptoms do not improve after 3 weeks, or if they get worse. Store at room temperature away from moisture, heat, and light. What happens if I miss a dose? Take the medicine as soon as you can, but skip the missed dose if it is almost time for your next dose. Do not take two doses at one time. What happens if I overdose? Seek emergency medical attention or call the Poison Help line at . An overdose of cyclobenzaprine can be fatal. Overdose symptoms may include severe drowsiness, vomiting, fast heartbeats, tremors, agitation, or hallucinations. What should I avoid while taking cyclobenzaprine? Avoid driving or hazardous activity until you know how this medicine will affect you. Your reactions could be impaired. Avoid drinking alcohol. Dangerous side effects could occur. What are the possible side effects of cyclobenzaprine? Get emergency medical help if you have signs of an allergic reaction: hives; difficult breathing; swelling of your face, lips, tongue, or throat. Stop using cyclobenzaprine and call your doctor at once if you have: ?? fast or irregular heartbeats; ?? chest pain or pressure, pain spreading to your jaw or shoulder; or ?? sudden numbness or weakness (especially on one side of the body), slurred speech, balance problems. Seek medical attention right away if you have symptoms of serotonin syndrome, such as: agitation, hallucinations, fever, sweating, shivering, fast heart rate, muscle stiffness, twitching, loss of coordination, nausea, vomiting, or diarrhea. Serious side effects may be more likely in older adults. Common side effects may include: ?? drowsiness, tiredness; ?? headache, dizziness; ?? dry mouth; or ?? upset stomach, nausea, constipation. This is not a complete list of side effects and others may occur. Call your doctor for medical advice about side effects. You may report side effects to FDA at 2-129-WND-6309. What other drugs will affect cyclobenzaprine? Using cyclobenzaprine with other drugs that make you drowsy can worsen this effect. Ask your doctor before using opioid medication, a sleeping pill, a muscle relaxer, or medicine for anxiety or seizures. Tell your doctor about all your other medicines, especially: ?? bupropion (Zyban, for smoking cessation); ?? meperidine; ?? tramadol; ?? verapamil; ?? cold or allergy medicine that contains an antihistamine (Benadryl and others); ?? medicine to treat Parkinson's disease; ?? medicine to treat excess stomach acid, stomach ulcer, motion sickness, or irritable bowel syndrome; ?? medicine to treat overactive bladder; or ?? bronchodilator asthma medication. This list is not complete. Other drugs may affect cyclobenzaprine, including prescription and dgyu-dlq-bxggiwj medicines, vitamins, and herbal products. Not all possible drug interactions are listed here. Where can I get more information? Your pharmacist can provide more information about cyclobenzaprine. Remember, keep this and all other medicines out of the reach of children, never share your medicines with others, and use this medication only for the indication prescribed. Every effort has been made to ensure that the information provided by [employer] is accurate, up-to-date, and complete, but no guarantee is made to that effect. Drug information contained herein may be time sensitive. [employer] information has been compiled for use by healthcare practitioners and consumers in the [place] and therefore [employer] does not warrant that uses outside of the [place] are appropriate, unless specifically indicated otherwise. [employer] drug information does not endorse drugs, diagnose patients or recommend therapy. [employer] drug information is an informational resource designed to assist licensed healthcare practitioners in caring for their patients and/or to serve consumers viewing this service as a supplement to, and not a substitute for, the expertise, skill, knowledge and judgment of healthcare practitioners. The absence of a warning for a given drug or drug combination in no way should be construed to indicate that the drug or drug combination is safe, effective or appropriate for any given patient. [employer] does not assume any responsibility for any aspect of healthcare administered with the aid of information [employer] provides. The information contained herein is not intended to cover all possible uses, directions, precautions, warnings, drug interactions, allergic reactions, or adverse effects. If you have questions about the drugs you are taking, check with your doctor, nurse or pharmacist. Copyright 2416-9084 [employer]. Version: 5.01. Revision Date: 08/16/2018. Emergency Awareness and Preventative Care STROKE is an EMERGENCY Every Minute Counts Act FAST and Check for these signs: FACE Does the face look uneven? ARM Does one arm drift down? SPEECH Does their speech sound strange? TIME Call at any sign of stroke Stroke Risk Factors Atrial Fibrillation (irregular heartbeat) Diabetes Family history of stroke Heart Disease Heavy alcohol use High Blood Pressure High Cholesterol Physical inactivity and obesity Smoking Cigarette Smoking The facts are clear, cigarette smoking will shorten your life. Smoking can cause many illnesses along the way. As a healthcare provider, we recommend that you stop smoking. Assistance with quitting is available by contacting 1-462-LRNH-NOW. This is a free resource providing counseling, support, and referral. Or you may contact your personal physician. National Suicide Prevention Lifeline: The National Suicide Prevention Lifeline is a national network of local crisis centers that provides free and confidential emotional support to people in suicidal crisis or emotional distress 24 hours a day, 7 days a week. Don't Wait! Stop a Heart Attack Before it Starts What is a heart attack? A heart attack is damage or to a part of the heart from severely decreased or lack of blood flow to the heart. Over time, arteries can become narrow from the buildup of fat and cholesterol, which is called plaque. The plaque can rupture causing a blood clot to form. When the blood clot forms, the artery can become severely narrowed or completely blocked, causing a heart attack. Heart attack is the leading cause of in the [place]. 85% of muscle damage occurs within the first 2 hours. Delay in the recognition of heart attack symptoms increases the chances of . Know the early symptoms of a heart attack: Nausea Feeling of fullness in chest Jaw Pain Pain that travels down one or both arms Fatigue/being tired Anxiety Back Pain Chest pressure, squeezing, or discomfort Shortness of breath Sweating, or a cold sweat Feeling of impending doom There are unusual signs of a heart attack, too! Women, the elderly, and diabetics may present with atypical symptoms: Fainting/dizziness Weakness Confusion Risk Factors for a Heart Attack Some heart disease risk factors, such as age and family history, cannot be changed. Others, like smoking and lack of exercise, can be changed. Smoking High Cholesterol High Blood Pressure Family History Obesity Age Gender (Males are at higher risk) Lack of Exercise Diabetes Diet Stress Excessive Alcohol Intake If you or someone you know is experiencing the signs and symptoms of a heart attack, DON???T DELAY. Call immediately and seek help. If someone collapses, perform CPR! Do not attempt to drive if you are having symptoms of heart attack. Hands-Only CPR Why Hands-Only CPR? Hands-Only CPR has been shown to be as effective as conventional CPR for cardiac arrests that occur outside of a hospital. Survival depends on immediately receiving CPR from someone nearby. How do you perform Hands-Only CPR? There are two easy steps: Call if you see a teen or adult collapse Push hard and fast in the center of the chest at a beat of 100 beats per minute. Save a life! 4 WAYS TO GET AHEAD OF SEPSIS SEPSIS is a MEDICAL EMERGENCY. Time matters! Infections put you and your family at risk for a life-threatening condition called sepsis. Sepsis is the body's extreme response to an infection. It is life-threatening, and without timely treatment, sepsis can rapidly lead to tissue damage, organ failure, and . Sepsis happens when an infection you already have-in your skin, lungs, urinary tract or somewhere else-triggers a chain reaction throughout your body. 1 PREVENT INFECTIONS Take good care of chronic conditions. Talk to your doctor about getting the recommended vaccines. 2 PRACTICE GOOD HYGIENE Wash your hands frequently. Keep cuts or open sores clean and covered until they are healed. 3 KNOW THE SYMPTOMS Confusion or disorientation Shortness of breath High heart rate Fever, shivering, or feeling very cold Extreme pain or discomfort Clammy or sweaty skin 4 ACT FAST Get medical care IMMEDIATELY if you suspect sepsis or if you have an infection that is not getting better or is getting worse. To learn more about sepsis and how to prevent infections, visit www.cdc.gov/sepsis. Test Results Laboratory or Other Results This Visit (last charted value for your 09/29/2020 visit) Hematology 10/02/2020 3:15 AM WBC: 10.2 K/uL -- Normal range between ( 3.6 and 9.5 ) RBC: 3.25 Million/uL -- Normal range between ( 4.20 and 5.70 ) Hct: 29.5 % -- Normal range between ( 40.1 and 51.0 ) Hgb: 9.1 g/dL -- Normal range between ( 13.5 and 17.3 ) Platelet Count: 221 K/uL -- Normal range between ( 163 and 369 ) MCH: 28.0 pg -- Normal range between ( 25.6 and 32.2 ) MCHC: 30.8 Gram/dL -- Normal range between ( 32.2 and 36.5 ) MCV: 90.8 fL -- Normal range between ( 79.0 and 94.8 ) Slide Review: No Eos %: 0.0 % -- Normal range between ( 0.0 and 7.0 ) Canyon #: 0.50 K/uL -- Normal range between ( 0.16 and 1.00 ) Eos #: 0.00 x10(3)/uL -- Normal range between ( 0.00 and 0.80 ) Canyon %: 4.9 % -- Normal range between ( 3.0 and 9.0 ) Baso %: 0.1 % -- Normal range between ( 0.0 and 1.5 ) Baso #: 0.01 x10(3)/uL -- Normal range between ( 0.00 and 0.20 ) RDW: 12.3 % -- Normal range between ( 11.7 and 14.9 ) Neut %: 83.7 % -- Normal range between ( 34.0 and 71.0 ) Neut #: 8.57 K/uL -- Normal range between ( 1.56 and 6.13 ) Lymph %: 10.5 % -- Normal range between ( 19.3 and 53.1 ) Lymph #: 1.08 x10(3)/uL -- Normal range between ( 1.00 and 3.90 ) MPV: 9.6 fL -- Normal range between ( 9.4 and 12.4 ) IG#: 0.08 x10(3)/uL -- Normal range between ( 0.00 and 0.05 ) IG%: 0.80 % -- Normal range between ( 0.00 and 0.60 ) nRBC: 0.030 -- Normal range between ( 0.000 and 0.012 ) Microbiology 09/29/2020 1:48 PM Novel Coronavirus 2019: Negative Blood Bank 09/30/2020 2:54 PM ABO/Rh (ECHO): B POS Antibody Screen: Negative ABSC 09/28/2020 2:34 AM ABO/Rh Repeat: B POS General Chemistry 10/01/2020 3:02 AM Creatinine Level: 0.90 mg/dL -- Normal range between ( 0.70 and 1.30 ) Sodium Level: 137 mmol/L -- Normal range between ( 136 and 146 ) Potassium Level: 4.2 mmol/L -- Normal range between ( 3.5 and 5.1 ) Chloride Level: 103 mmol/L -- Normal range between ( 102 and 112 ) Carbon Dioxide Level: 29 mmol/L -- Normal range between ( 21 and 32 ) Anion Gap: 9 -- Normal range between ( 9 and 20 ) Bilirubin Total: 0.2 mg/dL -- Normal range between ( 0.2 and 1.2 ) A/G Ratio: 0.8 -- Normal range between ( 1.1 and 2.5 ) ALT: 77 Units/Liter -- Normal range between ( 16 and 61 ) AST: 95 Units/Liter -- Normal range between ( 5 and 37 ) Globulin: 3.0 Gram/dL -- Normal range between ( 1.5 and 4.5 ) Alk Phos: 93 Units/Liter -- Normal range between ( 27 and 136 ) Bun/Creatinine: 30.0 -- Normal range between ( 8.0 and 20.0 ) Calcium Level: 8.2 mg/dL -- Normal range between ( 8.4 and 10.1 ) eGFR : >60 mL/min/1.73m2 eGFR NonAfrican: >60 mL/min/1.73m2 Glucose Level: 138 mg/dL -- Normal range between ( 74 and 106 ) Blood Urea Nitrogen: 27 mg/dL -- Normal range between ( 7 and 22 ) Protein Total: 5.4 Gram/dL -- Normal range between ( 6.4 and 8.2 ) Albumin Level: 2.4 Gram/dL -- Normal range between ( 3.4 and 5.0 ) 09/27/2020 6:41 PM Creatinine POC: 0.7 mg/dL -- Normal range between ( 0.6 and 1.3 ) Diagnostic Radiology 09/30/2020 7:[address] in OR: CR CT in OR Magnetic Resonance Imaging 09/27/2020 6:49 PM MRI Spine Lumbar WO W: MRI Spine Lumbar WO W Echo 09/29/2020 5:53 PM EC Echo Complete: EC Echo Complete Patient Name:GUARDADOELIZA I have received and understand this information and was given the opportunity to ask questions. Patient/Training And Development Rep Name: Patient/Training And Development Rep Signature: Relationship to Patient: Clinician/Hospital Training And Development Rep Signature: Date: documented in this encounter Plan of Treatment Not on file documented as of this encounter Visit Diagnoses Not on filedocumented in this encounter Care Teams Assistant Department Manager Relationship Specialty Start Date End Date Harris Álvarez MD [address] [place] [facility] [address] [place] [address] PCP - General Adolescent Medicine 01/12/24 Jackie Prado, LEORA [address] [place] [facility] [address] [place], [place] [address] Referring Physician Nurse Practitioner 01/12/24 documented as of this encounter
--- OUTSIDE RECORDS SUMMARY | 2025-05-17 12:54 | XMS_ITS | Encounter Summary ---
Author Organization [employer] Address [address] [place] [address] Care Team Providers Care Fast Food Manager Name Role Phone Harris Quinn MD Primary Care Provider + [phone] Jackie Prado CASSANDRA DEVELOPER Unavailable + [phone] Encounter Details Date Type Department Care Team (Late st Contact Info) Description 10/03/2020 Transcribed Document [facility] [place] [address] [place] [address] ProviderJerrica MD [address] [place] [address] Social History Tobacco Use Types Packs/Day Years Used Date Smoking Tobacco: Never Assessed Sex and Gender Information Value Date Recorded Sex Assigned at Male 06/20/2024 10:08 AM CDT Legal Sex Male 7:36 AM SUPERINTENDENT TESTS Gender Identity Male 06/20/2024 10:08 AM CDT Sexual Orientation Not on file documented as of this encounter Miscellaneous Notes * Cerner Conversion Note - Historical ProviderMD - 10/03/2020 3:53 PM SUPERINTENDENT TESTS On Going Discharge Planning Entered On: 10/03/2020 15:53 EST Performed On: 10/03/2020 15:53 EST by RICHIE GLASGOW RN-Maintenance FitterSenior Principal Progress Note Discharge Arrangements : Patient Post-Acute Information Patient Name: ELIZA GUARDADO Gender: Male : [birth year] Age: 65 Years No Post-Acute Placement(s) Listed No Post-Acute Service(s) Listed No Curaspan Referral(s) Listed Discharge Options Discussed with Patient : DME, Home Health, Short term rehabilitation Barriers to Discharge Identified : Clinical Condition of Patient Barriers to Discharge Unresolved : All resolved Designation of Choice Signed : Yes Patient Offered Choice/Affiliations Explained : Yes List/Info Provided Pt/Fam/Support Person : Durable medical equipment Were Referrals Sent to Post Acute Providers : Yes Does the Patient have a Floor to SNF Benefit? : No Physician Agreeable to Move Forward with D/C Plan? : Yes Did you Attend Multidisciplinary Rounds? : Yes RICHIE GLASGOW RN-Maintenance Fitter - 10/03/2020 15:53 EST Electronically signed by [facility] Conversion Medical Photographer Cerner at 03/08/2023 11:26 PM CDT documented in this encounter Plan of Treatment Not on file documented as of this encounter Visit Diagnoses Not on filedocumented in this encounter Care Teams Fast Food Manager Relationship Specialty Start Date End Date Harris Quinn MD [address] [place] [facility] [address] [place] [address] PCP - General Adolescent Medicine 01/12/24 Jackie Prado, CASSANDRA DEVELOPER [address] [place] [facility] [address] [place] [address] Referring Physician Nurse Practitioner 01/12/24 documented as of this encounter
--- OUTSIDE RECORDS SUMMARY | 2025-05-17 12:54 | XMS_ITS | Encounter Summary ---
Author Organization [employer] Address [address] [place] [address] Care Team Providers Care City Surveyor Name Role Phone Harris Quinn MD Primary Care Provider + [phone] Jackie Prado LOCK SETTER Unavailable + [phone] Encounter Details Date Type Department Care Team (Late st Contact Info) Description 09/30/2020 Transcribed Document [facility] [place] [address] [place] [address] ProviderJerrica MD [address] [place] [address] Social History Tobacco Use Types Packs/Day Years Used Date Smoking Tobacco: Never Assessed Sex and Gender Information Value Date Recorded Sex Assigned at Male 06/20/2024 10:08 AM CDT Legal Sex Male 7:36 AM LAY OUT CARPENTER Gender Identity Male 06/20/2024 10:08 AM CDT Sexual Orientation Not on file documented as of this encounter Miscellaneous Notes * Cerner Conversion Note - Historical ProviderMD - 09/30/2020 5:03 PM LAY OUT CARPENTER [facility] Main OR PACU Summary Primary Physician: TROY MCCLURE MD-SNU Finalized Date/Time: 09/30/20 21:20:47 Pt. Name: ELIZA GUARDADO D.O.B./Sex: 1955 Male Med Rec #: [id number] Physician: HERMINIA KNOWLES MD-INT Financial #: [id number] Pt. Type: I Room/Bed: [facility]/1 Admit/Disch: 09/29/20 14:34:00 - Institution: [facility] Main OR PACU I Case Times Entry 1 In PACU I 09/30/20 20:08:00 Ready for PACU 09/30/20 21:00:00 Discharge Discharge from PACU 09/30/20 21:00:00 I Last Modified By: STAR DAVILA 09/30/20 21:20:02 Finalized By: STAR DAVILA Document Signatures Signed By: STAR DAVILA 09/30/20 21:20 Electronically signed by [facility] Conversion Mailing Machine Helper Cerner at 03/08/2023 11:36 PM CDT documented in this encounter Plan of Treatment Not on file documented as of this encounter Visit Diagnoses Not on filedocumented in this encounter Care Teams City Surveyor Relationship Specialty Start Date End Date Harris Quinn MD [address] [facility] [address] [place] [address] PCP - General Adolescent Medicine 01/12/24 Jackie Prado, LOCK SETTER [address] [facility] [address], [place] [address] Referring Physician Nurse Practitioner 01/12/24 documented as of this encounter
--- OUTSIDE RECORDS SUMMARY | 2025-05-17 12:54 | XMS_ITS | Encounter Summary ---
Author Organization [employer] Address [address] [place] [address] Care Team Providers Care Medical Office Receptionist Name Role Phone Harris Quinn MD Primary Care Provider + [phone] Jackie Prado TRAINING TECHNICIAN Unavailable + [phone] Encounter Details Date Type Department Care Team (Late st Contact Info) Description 10/01/2020 Transcribed Document [facility] Family Medicine [address] [place] [address] ProviderJerrica MD [address] [place] [address] Social History Tobacco Use Types Packs/Day Years Used Date Smoking Tobacco: Never Assessed Sex and Gender Information Value Date Recorded Sex Assigned at Male 06/20/2024 10:08 AM CDT Legal Sex Male 7:36 AM CLEANING SUPERVISOR Gender Identity Male 06/20/2024 10:08 AM CDT Sexual Orientation Not on file documented as of this encounter Miscellaneous Notes * Cerner Conversion Note - Historical ProviderMD - 10/01/2020 12:47 PM CLEANING SUPERVISOR Patient: ELIZA GUARDADO Age: 65 years Sex: Male : 1955 Associated Diagnoses: None Author: TISHA RENEE, [facility] Mr. Guardado is a 65 yo male who is 1 day s/p neurosurgery for laminictomy/fusion, who also has an acute RLE DVT. Pharmacy was asked to assist with lovenox dosing in the setting of recent NS. Ht: 165cm Wt: ~72kg NKDA Vitals Signs (last 24 hrs) Last Charted Minimum Maximum Temp 98.2 (SEP 11 11:26) 97.7 (NOV 11 06:15) 98.6 (SEP 10 20:08) Mon HR 77 (OCT 01 11:26) 62 (NOV 10 14:17) 85 (SEP 10 20:08) Periph HR 49 (NOV 10 15:02) 49 (NOV 10 15:02) 49 (SEP 10 15:02) Resp Rate 18 (SEP 11 11:) 14 (SEP 30 15:02) 18 (NOV 14:17) SBP 131 (SEP 11 11:26) 99 (OCT 01 02:00) H 165 (SEP 30 15:02) DBP L 44 (OCT 01 11:) L 39 (OCT 01 02:00) 64 (SEP 30 21:00) MAP 66 (OCT 01 11:) 53 (OCT 01 02:00) 92 (SEP 30 21:00) SpO2 94 (OCT 01:) 94 (OCT 01 11:) 99 (SEP 30 14:17) Labs (Last four charted values) WBC H 15.0 (NOV 11) 6.3 (NOV 08) HB L 9.7 (NOV 11) L 12.6 (NOV 08) HCT L 29.4 (NOV 11) L 39.7 (NOV 08) Plt 294 (NOV 11) 345 (NOV 08) Na 137 (NOV 11) 136 (NOV 08) L 135 (NOV 07) K 4.2 (NOV 11) 4.3 (NOV 08) 4.2 (NOV 07) Cl 103 (NOV 11) 104 (NOV 08) L 101 (NOV 07) CO2 29 (NOV 11) 27 (NOV 08) 30 (NOV 07) BUN H 27 (NOV 11) 22 (NOV 08) 21 (NOV 07) Cr 0.90 (NOV 11) 1.00 (NOV 08) 1.00 (NOV 07) Glu R H 138 (NOV 11) H 247 (NOV 08) H 265 (NOV 07) Ca L 8.2 (NOV 11) 9.6 (NOV 08) 9.6 (NOV 07) AST H 95 (NOV 11) ALT H 77 (NOV 11) ALK P 93 (NOV 11) T Bili 0.2 (NOV 11) PTN L 5.4 (OCT 01) ALB L 2.4 (OCT 01) Creatinine Clearance (Current Encounter/Past 24 Hours) Creatinine Level 0.90 mg/dL 10/01/2020 03:43 Bun/Creatinine 30.0 HI 10/01/2020 03:43 Estimated Creatinine Clearance 72.13 mL/Min 10/01/2020 03:43 Plan: S/W NS, OK to resume full dose lovenox when OK with attending. S/W Attending, OK to resume full dose lovenox once approved by NS. Will resume lovenox 70mg SQ BID for acute RLE DVT. Thank You, Tisha Renee, PharmD documented in this encounter Plan of Treatment Not on file documented as of this encounter Visit Diagnoses Not on filedocumented in this encounter Care Teams Medical Office Receptionist Relationship Specialty Start Date End Date Harris Quinn MD [address] [place] [facility] [address] [place] [address] PCP - General Adolescent Medicine 01/12/24 Jackie Prado, TRAINING TECHNICIAN [address] [place] [facility] [address] [place] [address] Referring Physician Nurse Practitioner 01/12/24 documented as of this encounter
--- OUTSIDE RECORDS SUMMARY | 2025-05-17 12:54 | XMS_ITS | Encounter Summary ---
Author Organization [employer] Address [address] [place] [address] Care Team Providers Care Retail Service Lead Merchandiser Name Role Phone Harris Quinn MD Primary Care Provider + [phone] Jackie Prado PUMP HOUSE ENGINEER Unavailable + [phone] Encounter Details Date Type Department Care Team (Late st Contact Info) Description 10/03/[address] [facility] [place] Family Medicine [address] [place] [address] ProviderJerrica MD [address] [place] [address] Social History Tobacco Use Types Packs/Day Years Used Date Smoking Tobacco: Never Assessed Sex and Gender Information Value Date Recorded Sex Assigned at Male 06/20/2024 10:08 AM CDT Legal Sex Male 7:36 AM COUNTER SALES PERSON Gender Identity Male 06/20/2024 10:08 AM CDT Sexual Orientation Not on file documented as of this encounter Miscellaneous Notes * Cerner Conversion Note - Historical ProviderMD - 10/03/2020 3:53 PM COUNTER SALES PERSON Final Discharge Planning Entered On: 10/03/2020 15:54 EST Performed On: 10/03/2020 15:53 EST by RICHIE GLASGOW RN-Stone Banker Final Discharge Planning Discharge Arrangements : Patient Post-Acute Information Patient Name: ELIZA GUARDADO Gender: Male : [birth year] Age: 65 Years No Post-Acute Placement(s) Listed No Post-Acute Service(s) Listed No Curaspan Referral(s) Listed Patient Offered Choice/Affiliations Explained : Yes Designation of Choice Signed : Yes Important Medicare Message Reviewed With : Other: Commercial Transportation Needs : Family/Friend Follow Up Appointment Scheduled : Yes Is Patient High/Moderate Readmission Risk? : No Patient/Family Notified of Plan : Yes Is Patient Ready for Discharge? : Yes Physician Notified Patient is Ready for Discharge? : Yes Discharge To Care Management : Home/Residential/Halfway or Self Care - RICHEI GLASGOW RN-Stone Banker - 10/03/2020 15:53 EST Final Narrative Note Final Narrative Note : DC orders noted. FRW obtained from [employer] as he has no dme provider pref and it has been delivered. Pt still declining HH services. No other CM needs noted. RICHIE GLASGOW RN-Stone Banker - 10/03/2020 15:53 EST documented in this encounter Plan of Treatment Not on file documented as of this encounter Visit Diagnoses Not on filedocumented in this encounter Care Teams Retail Service Lead Merchandiser Relationship Specialty Start Date End Date Harris Quinn MD [address] [place] [address] [place] [address] PCP - General Adolescent Medicine 01/12/24 Jackie Prado, LEORA [address] [place] [address], [place] [address] Referring Physician Nurse Practitioner 01/12/24 documented as of this encounter
--- OUTSIDE RECORDS SUMMARY | 2025-05-17 12:54 | XMS_ITS | Encounter Summary ---
Author Organization [employer] Address [address] [place] [address] Care Team Providers Care Treatment Manager Name Role Phone Harris Quinn MD Primary Care Provider + [phone] Jackie Prado SCENARIO WRITER Unavailable + [phone] Encounter Details Date Type Department Care Team (Late st Contact Info) Description 09/30/2020 Transcribed Document [facility] [place] Family Medicine [address] [place] [address] ProviderJerrica MD [address] [place] [address] Social History Tobacco Use Types Packs/Day Years Used Date Smoking Tobacco: Never Assessed Sex and Gender Information Value Date Recorded Sex Assigned at Male 06/20/2024 10:08 AM CDT Legal Sex Male 7:36 AM ACCOUNT PLANNER Gender Identity Male 06/20/2024 10:08 AM CDT Sexual Orientation Not on file documented as of this encounter Miscellaneous Notes * Cerner Conversion Note - Historical ProviderMD - 09/30/2020 11:39 AM ACCOUNT PLANNER On Going Discharge Planning Entered On: 09/30/2020 11:43 EST Performed On: 09/30/2020 11:39 EST by RICHIE GLASGOW RN-Nursing TeacherAnesthesia Tech Progress Note Discharge Arrangements : Patient Post-Acute [...] Meeting Medical Necessity : Yes RICHIE GLASGOW, RN-Nursing Teacher - 09/30/2020 11:39 EST Narrative Progress Note Narrative Progress Note : Pt going to OR this afternoon for L2-iliac fusion. Met with pt at bedside to discuss DCP. Pt lives alone. He is retired from the [employer]. His daughter and family live about 1/4 mile away. He denies use of AD/HH/Rehab stays. He had been going to [facility] outpatient PT but with no relief. He states it is crowded there and will likely go to a different outpatient PT place if appropriate. CM will continue to follow. RICHIE GLASGOW RN-Nursing Teacher - 09/30/2020 11:39 EST Electronically signed by [facility] Conversion Wharfinger Chief Cerner at 03/08/2023 11:45 PM CDT documented in this encounter Plan of Treatment Not on file documented as of this encounter Visit Diagnoses Not on filedocumented in this encounter Care Teams Treatment Manager Relationship Specialty Start Date End Date Harris Quinn MD [address] [place] [facility] [address] [place] [address] PCP - General Adolescent Medicine 01/12/24 Jackie Prado, SCENARIO WRITER [address] [place] [facility] [address] [place] [address] Referring Physician Nurse Practitioner 01/12/24 documented as of this encounter
--- OUTSIDE RECORDS SUMMARY | 2025-05-17 12:54 | XMS_ITS | Encounter Summary ---
Author Organization [employer] Address [address] [place] [address] Care Team Providers Care Program Project Manager Name Role Phone Harris Quinn MD Primary Care Provider + [phone] Jackie Prado SENIOR MANAGEMENT CONSULTANT Unavailable + [phone] Encounter Details Date Type Department Care Team (Late st Contact Info) Description 09/30/2020 Transcribed Document [facility] [place] Family Medicine [address] [place] [address] ProviderJerrica MD [address] [place] [address] Social History Tobacco Use Types Packs/Day Years Used Date Smoking Tobacco: Never Assessed Sex and Gender Information Value Date Recorded Sex Assigned at Male 06/20/2024 10:08 AM CDT Legal Sex Male 7:36 AM NUTRITION THERAPIST Gender Identity Male 06/20/2024 10:08 AM CDT Sexual Orientation Not on file documented as of this encounter Miscellaneous Notes * Cerner Conversion Note - Historical ProviderMD - 09/30/2020 8:15 PM NUTRITION THERAPIST Evaluation, Occupational Therapy Entered On: 10/01/2020 11:40 EST Performed On: 10/01/2020 10:01 EST by CHRISTIAN FONTANEZ OTR/[place] General Information, OT Visit Type, OT : Initial evaluation Patient Orders : Order Date Order Ordering 09/27/2020 17:26 OT Evaluation and Treatment Ordered By: KATERINE CHUNG MD-INT 09/30/2020 20:15 Occupational Therapy Evaluation and Treatme Ordered By: TROY MCCLURE MD-SNU Active Diagnoses : 09/27/2020 12:00 Pain, unspecified Therapy Diagnosis, OT : decreased independence with ADLs due to weakness Onset of Problem, OT : 09/29/2020 EST Admission Date : 09/29/2020 14:34 Co-treated by, OT : Physical Therapist Personal Devices : Personal Devices No Devices Recorded Assistive Devices : Assistive Devices No Devices Recorded General Information Comment, OT : Diagnosis: L2-4 fusion, dural tear CHRISTIAN FONTANEZ OTR/Sebastien - 10/01/2020 11:36 EST General Status Patient Received Status : Supine in bed Treatment Start Time : 10/01/2020 9:47 EST Patient Left Status : Up in chair, RN/PCT informed, Family/Visitors at bedside, All needs met and within reach Treatment End Time : 10/01/2020 10:01 EST Treatment Time : 14 Minute(s) CHRISTIAN FONTANEZ OTR/L - 10/01/2020 11:36 EST History and Environment, OT Living Situation, Therapy : Home Patient Lives With : Alone Home Equipment, Therapy : Crutches Crutches : Crutches, axillary Home Setup : One story Stairs : Yes Stair Location(s) : Outside Outside Stairs, Number of Steps : 1 CHRISTIAN FONTANEZ OTR/L - 10/01/2020 11:36 EST Prior LOF Bathing, OT : Independent Prior LOF Bed Mobility : Independent Prior LOF Upper Body Dressing, OT : Independent Prior LOF Lower Body Dressing, OT : Independent Prior LOF Toileting : Independent Prior LOF Transfer : Independent Prior LOF Grooming, OT : Independent Prior LOF for IADLs, OT : Independent CHRISTIAN FONTANEZ OTR/Sebastien - 10/01/2020 11:36 EST Upper Extremity Right UE Active ROM : WFL Right UE Strength : WFL Left UE Active ROM : WFL Left UE Strength : WFL CHRISTIAN FONTANEZ OTR/Sebastien - 10/01/2020 11:36 EST Self Care/Home Management, OT Self Feeding Assist Level, OT : Supervision or set-up Grooming Assist Level, OT : Supervision or set-up Bathing Assist Level, OT : Assist, minimal Upper Body Dressing Assist Level, OT : Assist, minimal Lower Body Dressing Assist Level, OT : Assist, minimal Toileting Assist Level : Assist, minimal CHRISTIAN FONTANEZ OTR/Sebastien - 10/01/2020 11:36 EST Functional Mobility Mobility Grid Supine to Sit : Supervision/set-up Sit to Stand : Supervision/set-up Bed to Chair : Supervision/set-up Stand to Sit : Supervision/set-up CHRISTIAN FONTANEZ OTR/Sebastien - 10/01/2020 11:36 EST Cognition Assessment, OT Orientation : Oriented x 4 CHRISTIAN FONTANEZ OTR/Sebastien - 10/01/2020 11:36 EST Indication Assessment, OT Occupational Therapy Indicated : Yes Problem List, OT : Impaired, bed mobility, Impaired, activities daily living, Impaired functional mobility Potential Barriers, OT : None evident Rehabilitation Potential, OT : Good CHRISTIAN FONTANEZ OTR/Sebastien - 10/01/2020 11:36 EST Plan of Care, OT OT Tx Plan/Goals Established w Patient : Yes OT Frequency Rehab : Five days per week OT Duration Rehab : Fourteen days OT Treatments Planned : Activities of daily living, Functional mobility training, Therapeutic activities CHRISTIAN FONTANEZ OTR/Sebastien - 10/01/2020 11:36 EST Half-Way Goals, OT Grooming LTG Grid Goal #1 Activity : Grooming Assist : Independent, modified Date to Meet : 10/15/2020 EST Goal Status : Initial goal CHRISTIAN FONTANEZ OTR/Sebastien - 10/01/2020 11:36 EST Bathing LTG Grid Goal #1 Activity : Bathing Assist : Independent, modified Date to Meet : 10/15/2020 EST Goal Status : Initial goal CHRISTIAN FONTANEZ OTR/Sebastien - 10/01/2020 11:36 EST Dressing, Lower Body LTG Grid Goal #1 Activity : Dressing, Lower Body Assist : Independent, modified Date to Meet : 10/15/2020 EST Goal Status : Initial goal CHRISTIAN FONTANEZ OTR/Sebastien - 10/01/2020 11:36 EST Toileting LTG Grid Goal #1 Activity : Toileting Assist : Independent, modified Date to Meet : 10/15/2020 EST Goal Status : Initial goal CHRISTIAN FONTANEZ OTR/Sebastien - 10/01/2020 11:36 EST Toilet Transfer LTG Grid Goal #1 Activity : Toilet Transfer, Ambulatory Assist : Independent, modified Date to Meet : 10/15/2020 EST Goal Status : Initial goal CHRISTIAN FONTANEZ OTR/Sebastien - 10/01/2020 11:36 EST Bed Mobility/ Bed Transfer LTG Grid Goal #1 Activity : Bed Mobility/Bed Transfer Assist : Independent, modified Date to Meet : 10/15/2020 EST Goal Status : Initial goal CHRISTIAN FONTANEZ OTR/Sebastien - 10/01/2020 11:36 EST Treatment Note Subjective Comment : Pt agreeable Patient's Response to Treatment : Pt tolerated evaluation well Additional Objective Information : Pt supine upon arrival. Pt SBA supine to sit. Pt ambulated in room and hallway with SBA. Pt returned to room, left in chair with needs met and CL in reach. Pt reports no headache after mobility. Assessment : Pt will benefit from OT services during hospital admission Plan for Treatment : See goals CHRISTIAN FONTANEZ OTR/Sebastien - 10/01/2020 11:36 EST Pain Assessment Pain Score Pre-Intervention : 3 CHRISTIAN FONTANEZ OTR/L - 10/01/2020 11:36 EST Image 1 - Images currently included in the form version of this document have not been included in the text rendition version of the form. [place] OT Charges OT Eval Low Complexity : 1 CHRISTIAN FONTANEZ OTR/Sebastien - 10/01/2020 11:36 EST Electronically signed by [facility] Conversion Mobile Equipment Servicer Cerner at 03/08/2023 11:45 PM CDT documented in this encounter Plan of Treatment Not on file documented as of this encounter Visit Diagnoses Not on filedocumented in this encounter Care Teams Program Project Manager Relationship Specialty Start Date End Date Harris Quinn MD [address] [place] [address] PCP - General Adolescent Medicine 01/12/24 Jackie Prado, SENIOR MANAGEMENT CONSULTANT [address] [place] [address], [place] [address] Referring Physician Nurse Practitioner 01/12/24 documented as of this encounter
--- OUTSIDE RECORDS SUMMARY | 2025-05-17 12:54 | XMS_ITS | Encounter Summary ---
Author Organization [employer] Address [address] [place] [address] Care Team Providers Care Human Resources Office Assistant Name Role Phone Harris Quinn MD Primary Care Provider + [phone] Jackie Prado AGRICULTURAL EQUIPMENT SALES ENGINEER Unavailable + [phone] Encounter Details Date Type Department Care Team (Late st Contact Info) Description 10/03/2020 Transcribed Document [facility] [place] Medicine [address] [place] [address] ProviderJerrica MD [address] [place] [address] Social History Tobacco Use Types Packs/Day Years Used Date Smoking Tobacco: Never Assessed Sex and Gender Information Value Date Recorded Sex Assigned at Male 06/20/2024 10:08 AM CDT Legal Sex Male 7:36 AM LOCKSTITCH SHOULDER JOINER Gender Identity Male 06/20/2024 10:08 AM CDT Sexual Orientation Not on file documented as of this encounter Miscellaneous Notes * Cerner Conversion Note - Historical ProviderMD - 10/03/2020 2:21 PM LOCKSTITCH SHOULDER JOINER Patient Education Materials Follows: Spinal Fusion, Adult Spinal fusion is a [...] Up to 2 hours before the procedure ? you may continue to drink clear liquids, such as: ? Water. ? Clear fruit juice. ? Black coffee. ? Plain tea. Eating and drinking restrictions Follow instructions from your doctor about eating and drinking, which may include: ??? 8 hours before the procedure ? stop eating heavy meals or foods such as meat, fried foods, or fatty foods. ??? 6 hours before the procedure ? stop eating light meals or foods, such as toast or cereal. ??? 6 hours before the procedure ? stop drinking milk or drinks that have milk in them. ??? 2 hours before the procedure ? stop drinking clear liquids. Medicines ??? Ask your doctor about: ? Changing or stopping your normal medicines. This is important if you take diabetes medicines or blood thinners. ? Taking medicines such as aspirin and ibuprofen. These medicines can thin your blood. Do not take these medicines unless your doctor tells you to take them. ? Taking myel-ucf-fryride medicines, vitamins, herbs, and supplements. ??? You [...] 03/02/2012 Document Revised: 01/03/2020 Document Reviewed: 02/21/2018 [employer] Patient Education ? 2020 [employer]. documented in this encounter Plan of Treatment Not on file documented as of this encounter Visit Diagnoses Not on filedocumented in this encounter Care Teams Human Resources Office Assistant Relationship Specialty Start Date End Date Harris Quinn MD [address] [place] [facility] [address] [place] [address] PCP - General Adolescent Medicine 01/12/24 Jackie Prado, AGRICULTURAL EQUIPMENT SALES ENGINEER [address] [place] [address] [place], [place] [address] Referring Physician Nurse Practitioner 01/12/24 documented as of this encounter
--- OUTSIDE RECORDS SUMMARY | 2025-05-17 12:54 | XMS_ITS | Encounter Summary ---
Author Organization [employer] Address [address] [place] [address] Care Team Providers Care Software Engineering Associate Manager Name Role Phone Harris Quinn MD Primary Care Provider + [phone] Jackie Prado CAR REPAIRER APPRENTICE Unavailable + [phone] Encounter Details Date Type Department Care Team (Late st Contact Info) Description 09/27/2020 Transcribed Document [facility] [place] [address] [place] [address] ProviderJerrica MD [address] [place] [address] Social History Tobacco Use Types Packs/Day Years Used Date Smoking Tobacco: Never Assessed Sex and Gender Information Value Date Recorded Sex Assigned at Male 06/20/2024 10:08 AM CDT Legal Sex Male 7:36 AM COMMERCIAL LINES ACCOUNT MANAGER Gender Identity Male 06/20/2024 10:08 AM CDT Sexual Orientation Not on file documented as of this encounter Miscellaneous Notes * Cerner Conversion Note - Historical ProviderMD - 09/27/2020 5:04 PM COMMERCIAL LINES ACCOUNT MANAGER Admission History, Adult Entered On: 09/27/2020 17:13 EST Performed On: 09/27/2020 17:04 EST by KATHY MOTLEY RN Advance Directive Patient has Advance Directive *Q : No, patient refuses Advance Directive information KATHY MOTLEY RN - 09/27/2020 17:11 EST Anesthesia/Transfusion History Family History of Anesthesia Reaction : Prior transfusion without reaction Transfusion History : Prior anesthesia without reaction Family History of Anesthesia Reaction : None KATHY MOTLEY RN - 09/27/2020 17:11 EST Anticipated Discharge Needs Discharge To, Anticipated : Home Anticipated Discharge Needs at This Time : Occupational therapy, Physical Therapy KATHY MOTLEY RN - 09/27/2020 17:11 EST Education Topics, Admission Orientation DCP GENERIC CODE Advance Directives : Verbalizes understanding Allergy Band Applied : Verbalizes understanding Assessment/Vital Signs : Verbalizes understanding Bed Control : Verbalizes understanding Call Light : Verbalizes understanding Confidentiality : Verbalizes understanding Diet/Room Service : Verbalizes understanding Fall Prevention : Verbalizes understanding Hand Hygiene : Verbalizes understanding Healthcare Provider Visit : Verbalizes understanding ID Band Applied : Verbalizes understanding Isolation Precautions : Verbalizes understanding Orientation to Room/Bathroom : Verbalizes understanding Patient Bill of Rights : Verbalizes understanding Patient Rights/Responsibilities : Verbalizes understanding Patient Safety : Verbalizes understanding Personal Privacy Code : Verbalizes understanding Rapid Response Initiated by Patient/Family : Verbalizes understanding Rounding : Verbalizes understanding Siderails use/risks : Verbalizes understanding Skin Precautions : Verbalizes understanding Smoking Policy : Verbalizes understanding Telemetry Monitoring : Verbalizes understanding Television/Phone : Verbalizes understanding Visiting Policy : Verbalizes understanding KATHY MOTLEY RN - 09/27/2020 17:11 EST Functional Assessment Living Situation : Home Current Home Treatments : None KATHY MOTLEY RN - 09/27/2020 17:11 EST General Info Support Person/Pt Rep Name : mannie lambert [phone] Contact Password : heather christianson Support Person/Pt Rep Contact Information : daughter Want Family/Rep/Phys Notified of Admit : No Emergency Contact #1 : n Emergency Contact #1 Phone Number : n Emergency Contact #1 Relationship : n Emergency Contact #2 : n Emergency Contact #2 Phone Number : n Emergency Contact #2 Relationship : n Primary Language : Stateless Communication Barrier : None Solar Energy Engineer Needed : No KATHY MOTLEY RN - 09/27/2020 17:35 EST Fall Risk Scales ABCs Fall Injury Risk Identification : Age, Bones ABC Fall Injury Risk : Moderate to high injury risk LEE Hx Falls Immediate/Within 3 Months : No Lee Secondary Diagnosis : Yes LEE Use of Ambulatory Aid : Bed rest/Nurse assist LEE IV Therapy or IV Access : Yes Lee Gait/Transferring : Weak Lee Mental Status : Oriented to own ability Lee Fall Risk Score : 45 LEE Fall Scale Risk Level : 25-45 Medium Risk [place] Fall Interventions : Adequate lighting, Assistive devices within reach, Bed in low position, Call device within reach, Fall prevention handout/education per facility policy, Hourly comfort/safety rounds, Non-slip footwear, Personal items within reach, Reinforced to call for assistance before getting out of bed, Room free of clutter/spills, Upper side-rails up, Wheels locked, Wires/Cords secured Fall Moderate to High Risk Interventions : Supervise toileting as indicated, Transport methods appropriate to patient Fall Risk Scale Calc Temp : 0 KATHY MOTLEY RN - 09/27/2020 17:35 EST Health Histories Smoking Status : Former smoker, quit more than 30 days ago Smokeless Tobacco Status : Never KATHY MOTLEY RN - 09/27/2020 17:35 EST Social History (As Of: 09/27/2020 17:41:46 EST) Height and Weight, Clinical Dosing Height Source : Stated Height Entry Format : [place] Height, Feet : 5 ft(Converted to: 152 cm, 60 Inch) Height, Inches : 5 Inch(Converted to: 0 ft 5 Inch, 12.70 cm) Clinical Height : 165.1 cm Weight Source : Bed scale Weight Entry Format : [place] Clinical Dosing Weight : 72.77 kg Weight, Pounds : 160.1 lb Body Surface Area (BSA) : 1.8 m2 Body Mass Index : 26.7 kg/m2 (HI) [place] Body Weight : 61 kg KATHY MOTLEY, RN - 09/27/2020 17:35 EST Infectious Disease History Has the patient ever been tested for COVID-19? : No, Patient stated Does patient have symptoms of COVID-19? : No COVID19 Screening : No Experiencing Infectious Disease Symptoms : No symptoms Physical contact outside [place] in the last 30 days : No Infectious Disease History : Chicken pox/Shingles, Influenza, Measles, Mumps Tuberculosis Symptoms : None KATHY MOTLEY RN - 09/27/2020 17:35 EST Influenza Vaccine Asmt, Adult Previous Vaccines from Immunization Schedule : No qualifying data available. Influenza Immunization, Current Season : Yes KATHY MOTLEY RN - 09/27/2020 17:35 EST Pneumococcal Vaccine Previous Vaccines from Immunization Schedule : No qualifying data available. Pneumonia Immunization Received : Yes KATHY MOTLEY RN - 09/27/2020 17:35 EST Order Details Order Detail : N/A Patient Needs Meds Crushed/Liquid : No KATHY MOTLEY RN - 09/27/2020 17:35 EST Nutrition History Eating Poorly Due to Decreased Appetite : No Unplanned Weight Loss in Past 3-6 Months : No Malnutrition Screening Tool Total(mal) : 0 Malnutrition Screening Tool Risk Level : Patient not at risk KATHY MOTLEY RN - 09/27/2020 17:35 EST [place] Suicide Severity Rating Scale (C-SSRS) CSSRS Past Month Wish to be : No CSSRS Past Month Suicidal Thoughts : No CSSRS Lifetime Suicide Behavior : No Suicide Severity Rating Score : 0 Suicide Severity Rating : No Additional Care Required at this time KATHY MOTLEY RN - 09/27/2020 17:35 EST Psychosocial History Currently in Unsafe Situation : No KATHY MOTLEY RN - 09/27/2020 17:35 EST Sleep Apnea Risk Assmt Hx of Obstructive Sleep Apnea Diagnosis : No Snore Loudly : No Tired, Fatigued, or Sleepy During Day : No Observed Stopping Breathing During Sleep : No Have/Are Being Treated for Hypertension : No BMI Greater Than 35 kg/m2 : No Age over 50 Years Old : Yes Neck Circumference Greater Than 40 cm : No Gender Male : Yes STOP-BANG Sleep Apnea Risk Level Score : 2 KATHY MOTLEY RN - 09/27/2020 17:35 EST Valuables and Belongings Valuables and Belongings : Clothing Clothing : Common streetwear Clothing Disposition : Bedside KATHY MOTLEY RN - 09/27/2020 17:35 EST Electronically signed by [facility] Conversion Forestry Worker Cerner at 03/08/2023 11:43 PM CDT documented in this encounter Plan of Treatment Not on file documented as of this encounter Visit Diagnoses Not on filedocumented in this encounter Care Teams Software Engineering Associate Manager Relationship Specialty Start Date End Date Harris Quinn MD [address] [place] [address] [place] [address] PCP - General Adolescent Medicine 01/12/24 Jackie Prado, LEORA [address], [place] [address] Referring Physician Nurse Practitioner 01/12/24 documented as of this encounter
--- OUTSIDE RECORDS SUMMARY | 2025-05-17 12:54 | XMS_ITS | Encounter Summary ---
Author Organization [employer] Address [address] [place] [address] Care Team Providers Care Car Mover Name Role Phone Harris Quinn MD Primary Care Provider + [phone] Jackie Prado BOARD SETTER Unavailable + [phone] Encounter Details Date Type Department Care Team (Late st Contact Info) Description 09/30/2020 Transcribed Document [facility] [address] [place] [address] Stu Liang MD [address] [place] [address] [address] [place] [address] Social History Tobacco Use Types Packs/Day Years Used Date Smoking Tobacco: Never Assessed Sex and Gender Information Value Date Recorded Sex Assigned at Male 06/20/2024 10:08 AM CDT Legal Sex Male 7:36 AM INSTRUCTIONAL SYSTEMS SPECIALIST Gender Identity Male 06/20/2024 10:08 AM CDT Sexual Orientation Not on file documented as of this encounter Miscellaneous Notes * Cerner Conversion Note - Stu Liang MD - 09/30/2020 11:11 AM EST Patient: ELIZA GUARDADO Age: 65 [...] yesterday. Plan for surgery noted for today. Health Status Allergies: Allergic Reactions (Selected) No Known Allergies Current medications: (Selected) Inpatient Medications Ordered Colace: 100 mg, Oral, BID, PRN: Constipation Flexeril: 5 mg, Oral, TID, PRN: Spasms Lipitor: 40 mg, Oral, Daily MiraLax: 17 [...] hrs) Last Charted Minimum Maximum Temp 97.7 (SEP 30:) 97.7 (SEP 30:) 98.3 (SEP 29 11:21) Apical HR 73 (SEP 29 18:23) 73 (SEP 29 18:23) 73 (SEP 29 18:23) Mon HR 55 (SEP 30:00) 46 (SEP 30 01:36) 74 (SEP 29 11:21) Resp Rate 18 (SEP 30:00) 16 (SEP 29 14:39) 19 (SEP 30 01:36) SBP 135 (SEP 30:00) 135 (SEP 30 06:00) H 180 (SEP 29 18:22) DBP L 48 (SEP 30:) L 48 (SEP 30:) 89 (SEP 29:) MAP 68 (SEP 30:) 68 (SEP 30 06:00) 113 (SEP 29:) SpO2 96 (SEP 30:) 96 (SEP 30 01:36) 99 (SEP 29 17:00) General: Alert and oriented, No acute distress. [...] of cardiac valve surgery in childhood PLAN Patient is going for surgery today per neurosurgery notes. Continue with Lovenox for DVT management postsurgically.. Continue with IV steroids as per neurosurgery recommendations. Follow with neurosurgery regarding surgical recommendations. PT and OT Follow labs and electrolytes as needed. Pain management. Discussed with the patient this morning. documented in this encounter Plan of Treatment Not on file documented as of this encounter Visit Diagnoses Not on filedocumented in this encounter Care Teams Car Mover Relationship Specialty Start Date End Date Harris Quinn MD [address] [place] [facility] [address] [place] [address] PCP - General Adolescent Medicine 01/12/24 Jackie Prado, BOARD SETTER [address] [place] [facility] [address] [place] [address] Referring Physician Nurse Practitioner 01/12/24 documented as of this encounter
--- OUTSIDE RECORDS SUMMARY | 2025-05-17 12:54 | XMS_ITS | Encounter Summary ---
Author Organization [employer] [facility] Address [address] [place] [address] Care Team Providers Care Sports Therapist Name Role Phone Harris Quinn MD Primary Care Provider + [phone] Jackie Prado CROP CONSULTANT Unavailable + [phone] Encounter Details Date Type Department Care Team (Late st Contact Info) Description 09/30/2020 Transcribed Document [facility] Neurology - [facility] [address] [id number] John Cerda MD [facility] [place] [address] Social History Tobacco Use Types Packs/Day Years Used Date Smoking Tobacco: Never Assessed Sex and Gender Information Value Date Recorded Sex Assigned at Male 06/20/2024 10:08 AM CDT Legal Sex Male 7:36 AM 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 Objective VS/Measurements Vitals Signs (last 24 hrs) Last Charted Minimum Maximum Temp 97.7 (SEP 30:) 97.7 (SEP 30:) 98.3 (SEP 29 11:21) Apical HR 73 (SEP 29 18:23) 73 (SEP 29 18:23) 73 (SEP 29 18:23) Mon HR 55 (SEP 30 06:00) 46 (SEP 30:36) 74 (SEP 29 11:21) Resp Rate 18 (SEP 30:) 16 (SEP 29 14:39) 19 (SEP 30:36) SBP 135 (SEP 30:) 135 (SEP 30:) H 180 (SEP 29:) DBP L 48 (SEP 30:) L 48 (SEP 30:) 89 (SEP 29:) MAP 68 (SEP 30:) 68 (SEP 30:) 113 (SEP 29:) SpO2 96 (SEP 30:) 96 (SEP 30:36) 99 (SEP 29 17:00) Lying in bed in NAD. AAOx3. Moving lower extremities well. Impression and Plan 65 year old male with previous L4-5 fusion, admitted with severe back and right radicular leg pain. MRI shows right L3-4 and L5-S1 lateral recess and foraminal stenosis. There is significant degeneration at L2-3 as well. Plan for L2-iliac fusion this afternoon. Discussed again with patient. No questions. Hold lovenox and fish oil today. documented in this encounter Plan of Treatment Not on file documented as of this encounter Visit Diagnoses Not on filedocumented in this encounter Care Teams Sports Therapist Relationship Specialty Start Date End Date Harris Quinn MD [address] [place] [facility] [address] [place] [address] PCP - General Adolescent Medicine 01/12/24 Jackie Prado, CROP CONSULTANT [address] [place] [address], [place] [address] Referring Physician Nurse Practitioner 01/12/24 documented as of this encounter
[2025-05-17] MEDS: GADOTERIDOL INJ 20ML SYRINGE 15 ML IV (14:02)
[2025-05-17] MEDS: 0.9 % SODIUM CHLORIDE 50 ML VIAL 10 ML IV (14:02)
== END 2025-05-17 23:59 | disposition home or self-care (01) ==
LOC: RAD 12:51
PROVIDERS: PCP Internal Medicine Adolescent Medicine; Visit Provider Nurse Practitioner Family
DX: M48.061 Spinal stenosis, lumbar region without neurogenic claudication (principal); Z98.890 Other specified postprocedural states
CPT/HCPCS: 72158; A9576

== ENCOUNTER 2025-06-11 13:08 | Day surgery (SDC) | payer MEDICARE, BC, SELFPAY ==
[2025-06-11 13:20] VITALS: BP 124/47; PULSE 60; RESP 18; O2SAT 97; BMI 27.4
[2025-06-11 13:29] VITALS: BP 145/63; PULSE 74; PULSE 75; RESP 18; O2SAT 98
[2025-06-11] MEDS: BUPIVACAINE 0.25% 10ML INJ 25 MG IJ (13:30)
[2025-06-11] MEDS: LIDOCAINE 1% 5ML PF VIAL 5 ML (13:30)
--- NOTE | 2025-06-11 13:35 | EXP.PAIN.PRO ---
Procedure Date: 06/11/25 Time: 13:20 Anesthesiologist:: Edd Aguilar CRNA Complications:: None Pre-procedure Diagnosis:: Degenerative disc lumbar spine multilevels. Lumbar radiculopathy. Lumbar postlaminectomy syndrome. Lumbar spondylosis. Multilevel lumbar facet arthropathy. Post-procedure Diagnosis:: Same. Indications for Procedure:: Is a very pleasant 70-year-old male who comes our clinic today for round 1 diagnostic medial branch blocks/facet injections L4-5, L5-S1 level. Patient describes low lumbar back pain as constant, dull, aching. Patient reports having difficulty ambulating to the mailbox and back without severe low lumbar back pain as well as bilateral hip and leg radicular symptoms. Patient has had 3 separate lumbar fusion surgeries. He rates his pain 8/10. Procedure Details:: Informed consent was obtained and the risk and benefits of the procedure was explained to the patient. Patient was taken to the procedure room where noninvasive monitors were placed, including noninvasive blood pressure cuff as well as pulse oximeter. The area over the lumbar spine was cleansed using chlorhexidine as a cleansing solution. I anesthetized the skin and subcutaneous tissues with 1% Lidocaine. I placed 22-gauge spinal needles into the facet joint/ medial branches of L4-L5, and L5-S1 bilaterally. Needle placement was confirmed with fluoroscopy. After confirmation of needle placement, each site was injected with 1 mL of 1% lidocaine and 0.25 % Marcaine 1 mL. Patient tolerated the procedure without difficulty. There were no complications. Plan and Disposition:: Patient was reevaluated 10 minutes post procedure. He reports significant improvement in terms of his low back pain with standing, ambulating, sitting. He was discharged without incident.
[2025-06-11 13:38] VITALS: BP 143/63; PULSE 64; RESP 18; O2SAT 97
== END 2025-06-11 13:38 | disposition home or self-care (01) ==
PROVIDERS: PCP Internal Medicine Adolescent Medicine; Visit Provider Nurse Anesthetist, Certified Registered
DX: M51.16 Intervertebral disc disorders with radiculopathy, lumbar region (principal); M96.1 Postlaminectomy syndrome, not elsewhere classified; M47.26 Other spondylosis with radiculopathy, lumbar region; I65.29 Occlusion and stenosis of unspecified carotid artery; I48.91 Unspecified atrial fibrillation; I10 Essential (primary) hypertension; M06.9 Rheumatoid arthritis, unspecified; Z79.891 Long term (current) use of opiate analgesic; Z79.899 Other long term (current) drug therapy
CPT/HCPCS: 64493; 64494; 64495; J0665; J2003

== ENCOUNTER 2025-06-25 14:46 | Outpatient (POV) | payer MEDICARE, BC, SELFPAY ==
[2025-06-25 14:55] VITALS: BP 125/66; PULSE 62; RESP 14; O2SAT 97; BMI 26.6
--- OUTSIDE RECORDS SUMMARY | 2025-06-25 14:58 | XMS_ITS | Clinical Summary ---
[facility] Address [address] [place] [address] Care Team Providers Care Linotype Operator Name Role Phone Harris Quinn MD Primary Care Provider + [phone] Allergies No known active allergies Medications gabapentin (NEURONTIN) 300 MG capsule Take 1 capsule by mouth Every Evening. Active amLODIPine (NORVASC) 5 MG tablet Take 1 tablet by mouth Daily. Active atorvastatin (LIPITOR) 80 MG tablet Take 0.5 tablets by mouth Daily. Active vitamin B-6 (PYRIDOXINE) 50 MG tablet Take 1 tablet by mouth Daily. Active bisoprolol (ZEBeta) 5 MG tablet Take 1 tablet by mouth Daily. 4 Active famotidine (PEPCID) 10 MG tablet Take 2 tablets by mouth Daily As Needed for Heartburn or Indigestion. Active folic acid (FOLVITE) 1 MG tablet Take 1 tablet by mouth Daily. Active Loratadine 10 MG capsule Take 1 capsule by mouth Daily. Active losartan (COZAAR) 100 MG tablet Take 1 tablet by mouth Daily. 4 Active Pony-3 Fatty Acids (fish oil) 1000 MG capsule capsule Take 2 capsules by mouth Daily With Breakfast. Active Menthol-Methyl Salicylate (SALONPAS PAIN RELIEF PATCH EX) Apply 1 patch topically Daily As Needed (shoulder pain). Active Eliquis 5 MG tablet tablet Take 1 tablet by mouth 2 (Two) Times a Day. Resume this evening. 08/07/24 4 Active ropivacaine (NAROPIN) 0.2 % infusion (INFUSYSTEM) 2 mg/hr by Peripheral Nerve route Continuous. 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 Never 08/06/2024 Q2: How many drinks containi ng alcohol do you have on a typical day when you are drinking? Patient does not drink Q3: How often do you have si x or more drinks on one occasion? Never 08/06/2024 Hunger Vital Sign Answer Date Recorded Within the past 12 months, y ou worried that your food would run out before you got the money to buy more. Never true 08/07/20 24 Within the past 12 months, t he food you bought just didn't last and you didn't have money to get more. Never true 08/07/2024 Abuse Screen Answer Date Recorded Feels Unsafe at Home or Work/School no 08/06/2024 Feels Threatened by Someone no 07/22 Does Anyone Try to Keep You From Having Contact with Others or Doing Things Outside Your Home? no 08/06/2024 Physical Signs of Abuse Present no 08/06/2024 Housing Stability Answer Date Recorded Current Living Arrangements home 07/22 Potentially Unsafe Housing Conditions none 08/07/2024 Family and Community Support Answer Martell e Recorded Help with Day-to-Day Activities Not on file 08/29/2023 Lonely or Isolated Not on file 08/29/2023 Employment Answer Date Recorded Do you want help finding or keeping work or a victor manuel b? Not on file 08/29/2023 Disabilities Answer Date Recorded Difficulty Concentrating, Remembering or Making Decisions no 08/06/2024 Difficulty Managing Errands Independently no 08/06/2024 Education Answer Date Recorded Help with school or training? Not on file Preferred Language Iraqi 07/24/2024 Sex and Gender Information Value Date Recorded Sex Assigned at Not on file Legal Sex Male 11:20 AM EDT Gender Identity Not on file Sexual Orientation Not on file Last Filed Vital Signs Vital Sign Reading Time Taken Comments Blood Pressure 130/81 08/07/2024 10:30 AM EDT Pulse 65 08/07/2024 10:30 AM EDT Temperature 36.8 C (98.3 F) 08/07/2024 10:30 AM EDT Respiratory Rate 18 08/07/2024 10:30 AM EDT Oxygen Saturation 98% 08/07/2024 10:30 AM EDT Inhaled Oxygen Concentration - - Weight 75.3 kg (166 lb) 08/06/2024 8:35 AM EDT Height 165.1 cm (5' 5 ) 08/06/2024 8:35 AM EDT Body Mass Index 27.62 08/06/2024 8:35 AM EDT Plan of Treatment Health Maintenance Due Date Last Done Comments LIPID PANEL 1955 COLON CANCER SCREENING 5 GUERITAA R SIGMOIDOSCOPY 01/23/2001 COLONOSCOPY 01/23/2001 CT COLONOGRAPHY 01/23/2001 FECAL OCCULT BLOOD TEST 01/23/2001 FIT Testing (1 year) 01/23/2001 ZOSTER VACCINE (1 of 2) 01/23/2006 AAA SCREEN ONCE 01/23/2021 ANNUAL WELLNESS VISIT 07/18/2024 HEPATITIS C SCREENING 07/18/2024 COVID-19 Vaccine (4 - 2023-2 5 season) 2024 11/04/2021, 02/25/2021, 01/23/2021 COLOGUARD 10/30/2024 10/30/2021 COLORECTAL CANCER SCREENING 10/30/2024 INFLUENZA VACCINE 08/21/2025 08/16/2023, , 10/08/2021, Additional history exists TDAP/TD VACCINES (2 - Td or Tdap) 07/21/2026 016 Pneumococcal Vaccine 50+ Completed 02/08/2023, 09/21 Goals Goal Patient Goal Type Associated Problems Recent Progress Patient-Stated? Author Autogenera kun Goal Care Plan Autogenerated Problem No [employer] Implanted Type Area File System Installer Device Identifier Shelf Expiration Date Model / Serial / Lot Stem Hum Equinoxe Preserve 7mm - [id number] - [id number] Implanted:Qt y: 1 on 08/06/2024 by Anup Louis MD at [facility] Implant Right: Shoulder EXACTECH [id number] 02/01/2034 [id number] / [id number] / N/A Scrw Equinoxe Torq Define Rev Shldr Kt - [id number] - [id number] Implanted:Qt y: 1 on 08/06/2024 by Anup Louis MD at [facility] Implant Right: Shoulder EXACTECH [id number] 05/13/2029 [id number] / [id number] / N/A Liner Hum/Shldr Equinoxe/Rev 38mm Pls0 - [id number] - [id number] Implanted:Qt y: 1 on 08/06/2024 by Anup Louis MD at [facility] Implant Right: Shoulder EXACTECH [id number] 03/06/2029 [id number] / [id number] / N/A Try Adapt Hum/Shldr Equinoxe For/Rev/Totl Pls0 - [id number] - [id number] Implanted:Qt y: 1 on 08/06/2024 by Anup Louis MD at [facility] Implant Right: Shoulder EXACTECH [id number] 05/17/2034 [id number] / [id number] / N/A Totl Shldr Rev Jun [id number] Implanted:Qt y: 1 on 08/06/2024 by Anup Louis MD at [facility] Implant Right: Shoulder EXACTECH CAPSHOULDREVAUGE X AC / / Plt Fred Jnt Equinoxe Aug/Superior 10deg - [id number] - [id number] Implanted:Qt y: 1 on 08/06/2024 by Anup Louis MD at [facility] Implant Right: Shoulder EXACTECH [id number] 10/16/2028 [id number] / [id number] / N/A Scrw Compr Equinoxe Lk 4.5x30mm - [id number] - [id number] Implanted:Qt y: 1 on 08/06/2024 by Anup Louis MD at [facility] Implant Right: Shoulder EXACTECH [id number] 02/28/2029 [id number] / [id number] / Scrw Compr Equinoxe Lk 4.5x26mm - [id number] - [id number] Implanted:Qt y: 1 on 08/06/2024 by Anup Louis MD at [facility] Implant Right: Shoulder EXACTECH [id number] 07/27/2028 [id number] / [id number] / N/A Scrw Compr Equinoxe Lk 4.5x34mm - [id number] - [id number] Implanted:Qt y: 1 on 08/06/2024 by Anup Louis MD at [facility] Implant Right: Shoulder EXACTECH [id number] 11/09/2028 [id number] / [id number] / N/A Glenosphere Shldr/Rev Equinoxe W/Cp/Lk/Ext 38mm - [id number] - [id number] Implanted:Qt y: 1 on 08/06/2024 by Anup Louis MD at [facility] Implant Right: Shoulder EXACTECH [id number] 03/21/2034 [id number] / [id number] / N/A Scrw Lk Equinoxe Glenosphere Rev/Shldr - [id number] - [id number] Implanted:Qt y: 1 on 08/06/2024 by Anup Louis MD at [facility] Implant Right: Shoulder EXACTECH [id number] 03/18/2029 [id number] / [id number] / N/A Scrw Compr Equinoxe Lk 4.5x42mm - [id number] - [id number] Implanted:Qt y: 1 on 08/06/2024 by Anup Louis MD at [facility] Implant Right: Shoulder EXACTECH [id number] 09/23/2025 [id number] / [id number] / N/A Sut Fw #2 W/Tpr Ndl 1/2 Cir 38in 97cm 26.5mm Darryn - [id number] Implanted:Qt y: 1 on 08/06/2024 by Anup Louis MD at [facility] Implant Right: Shoulder ARTHREX [id number] 04/20/2028 [id number] / / [id number] Additional Health Concerns Active Problems Noted Date Diagnosed Date Autogenerated Problem 06/03/2025 Insurance MEDICARE A & B Member Subscriber Plan / Payer (Ef fective 2021-Present) Name:Eliza Lambert Member ID:[id number] Relation to Subscriber:Self Name:Eliza Lambert Subscriber ID:[id number] Payer ID:[id number] Group ID:Not on file Type:Not on file Address: [facility] [id number] [address] Care Teams Linotype Operator Relationship Specialty Start Date End Date Harris Quinn MD [address] [facility] [address] [place] [address] PCP - General Adolescent Medicine 07/24/24
--- NOTE | 2025-06-25 15:28 | EXP.PAIN.SOA ---
[facility] Disclaimer: The information contained in this section may have been updated after the patient was seen, as this information can be updated by other users. Medical History Hyperlipidemia Hypertension History of hypertension History of rheumatoid arthritis History of atrial fibrillation Pre-op evaluation Abnormal electrocardiogram [ECG] [EKG] Carotid artery stenosis A-fib DVT (deep venous thrombosis) Surgical History History of foot surgery History of heart surgery Previous back surgery Family History Other Family history of coronary artery disease Social History Smoking Status: Never smoker alcohol intake: never substance use type: denies use current occupational status: other Travel in the last 8 weeks?: None PM Subjective & Objective Subjective Subjective:: Patient is a pleasant 70-year-old male who presents today for follow-up of his first lumbar medial branch block bilaterally L4-L5 and L5-S1 that was a diagnostic injection on 06/11/2025. Today he rates his pain a 5 out of 10. He denies any new falls or injuries. He does state that that injection did give 95% relief and lasted for a full day. Patient states that he really had no pain during that time and felt like he was much more functional. He was able to move around easier. Patient does state that he is back to his baseline today and states the pain is worse with certain movements such as bending, twisting and lifting. Patient does state the pain is back to interfering with his ability perform activities of daily living such as cooking and cleaning. Patient would like to progress onto the next injection. Patient has tried and failed conservative therapy including oral medication, heat and ice, topicals, physical therapy and continued at home stretching exercise that was physician guided for longer than 12 weeks. His Alcon has been reviewed and is appropriate. He did get the compounded cream and states that is difficult to get onto his back but has noticed significant improvement around his wrist. Review of Systems: General: No recent weight changes, no fever, no sleep disturbances Respiratory: No cough, no shortness of air, no recurring pulmonary infections Cardiovascular/peripheral vascular: No chest pain, no palpitations, no edema, no shortness of breath Gastrointestinal: No new onset incontinence, normal bowel movements reported Genitourinary: No new onset incontinence Musculoskeletal: Low back pain Psychiatric: [Normal mood/affect] Neurological: [Denies weakness in extremities], [denies balance issues] Pain at rest (0-10 scale): 5 Objective Objective:: Physical Exam: General: Alert and oriented x3, no acute distress, pleasant and cooperative Lungs: Respirations even and unlabored, symmetrical chest expansion Eyes: PERRL Musculoskeletal: Flexion and extension of lumbar [spine] somewhat guarded secondary to pain, [antalgic gait noted] positive Kemps test Neurological: Speech clear, no gross sensory deficit Has patient had previous pain injection?: Yes Percent improvement in pain since last injection: 95% Conservative treatment options previously tried: Home exercise plan Length of treatment: Longer than 12 weeks Meds Home Medications and Allergies Home Medications ?Medication ?Instructions ?Recorded ?Confirmed ?Type amlodipine 5 mg tablet 5 mg PO DAILY Hypertension 01/01/23 06/25/25 History folic acid 1 mg tablet 1 mg PO DAILY Supplement 01/01/23 06/25/25 History gabapentin 300 mg capsule 300 mg PO PM Rheumatoid arthritis 01/01/23 06/25/25 History hydrocodone 10 mg-acetaminophen 1 tab PO Q6HP PRN PAIN 01/01/23 06/25/25 History 325 mg tablet losartan 100 mg tablet 100 mg PO DAILY Hypertension 01/01/23 06/25/25 History cholecalciferol (vitamin D3) 125 125 mcg PO DAILY 12/21/23 06/25/25 History mcg (5,000 unit) capsule famotidine 20 mg tablet (Pepcid) 20 mg PO DAILY 12/21/23 06/25/25 History fish [id number] C-vit E 2,000 See Rx Instructions PO .COMPLEX 12/21/23 06/25/25 History mg-650 mg-12 mg/2.5 g emulsion packt loratadine 10 mg tablet (Claritin) 10 mg PO DAILY 12/21/23 06/25/25 History bisoprolol fumarate 5 mg tablet See Rx Instructions .Route 06/13/24 06/25/25 Rx .COMPLEX #90 tabs pyridoxine (vitamin B6) 50 mg 50 mg PO DAILY 07/17/24 06/25/25 History tablet atorvastatin 40 mg tablet 40 mg PO DAILY 01/15/25 06/25/25 History cyanocobalamin (vitamin B-12) 1,000 mcg SQ MONTHLY 01/15/25 06/25/25 History 1,000 mcg/mL injection solution syringe with needle 3 mL 25 gauge #1 ea 01/15/25 06/25/25 History x 1 (BD Luer-Magdalena Syringe) lidocaine 5 % topical patch 1 patch topical DAILY #15 ea 01/30/25 06/25/25 Rx methocarbamol 1,000 mg tablet 1,000 mg PO QID PRN Spasms 72 01/30/25 06/25/25 Rx hours #12 tabs apixaban 5 mg tablet (Eliquis) See Rx Instructions .Route 02/25/25 06/25/25 Rx .COMPLEX #180 tabs New Prescriptions to Start Prescriptions: Allergies Allergy/AdvReac Type Severity Reaction Status Date / Time No Known Allergies Allergy Verified 01/30/25 10:18 Assessment and Plan *Assessment and plan (1) Lumbar facet arthropathy: Status: Acute Category: Medical Code(s): M47.816 - Spondylosis without myelopathy or radiculopathy, lumbar region (2) History of lumbar fusion: Status: Acute Category: Surgical Code(s): Z98.1 - Arthrodesis status (3) Degenerative disc disease: Status: Acute Category: Medical Plan Patient did have a successful first lumbar medial branch block and I did review with him regarding repeat diagnostic block. Risk and benefits were discussed with patient and he would like to proceed forward with this plan of care. Patient did have limited range of motion of his lumbar spine during today's visit with a positive Kemps test. Patient was counseled if he does get significant improvement with this second diagnostic block we will proceed forward with the lumbar RFA at a later date. Patient acknowledges understanding agrees with plan of care. Patient has continued at home stretching and exercise for longer than 12 weeks with no additional changes. Patient has had chronic low back pain for longer than 6 months and denies any radiating symptoms into his legs. Patient has failed oral medications, heat and ice, topicals. We will schedule him for the second lumbar medial branch block bilaterally L4-L5 and L5-S1 under fluoroscopy. Patient has been instructed to contact the clinic with any concerns before the next appointment. Dr. Joy has reviewed this note and agrees with this plan of care. This note was dictated using voice recognition software and make contain errors or omissions. All injections are used with Lidocaine, Bupivacaine and dexamethasone unless diagnostic in which no steroids are used. Occasionally urine drug screen is needed to verify patient's compliance with our office pain contract. This is ordered based off specific treatments related to chronic pain with the potential to abuse certain medications.
== END 2025-06-25 23:59 | disposition home or self-care (01) ==
LOC: SC.PAIN 14:48
PROVIDERS: PCP Internal Medicine Adolescent Medicine; Visit Provider Nurse Practitioner Family
DX: M47.816 Spondylosis without myelopathy or radiculopathy, lumbar region (principal); Z98.1 Arthrodesis status
CPT/HCPCS: 99212; G0463

== ENCOUNTER 2025-07-15 10:36 | Outpatient (POV) | payer MEDICARE, BC, SELFPAY ==
--- NOTE | 2025-07-15 10:55 | EXP.PAIN.SOA ---
[facility] Disclaimer: The information contained in this section may have been updated after the patient was seen, as this information can be updated by other users. Medical History Hyperlipidemia Hypertension History of hypertension History of rheumatoid arthritis History of atrial fibrillation Pre-op evaluation Abnormal electrocardiogram [ECG] [EKG] Carotid artery stenosis A-fib DVT (deep venous thrombosis) Surgical History History of foot surgery History of heart surgery Previous back surgery Family History Other Family history of coronary artery disease Social History Smoking Status: Never smoker alcohol intake: never substance use type: denies use current occupational status: other Travel in the last 8 weeks?: None Have you lived/traveled outside US in past 30 days?: No Contact w/someone who lives/traveled outside US past 30 days?: No Exposure to someone with infectious disease in past 14 days?: No Do you have a fever (greater than 100.4 F or 38 C)?: No Have you tested positive for COVID-19?: No Exposed to someone with COVID-19 in past 14 days?: No Do you have a sore throat?: No Do you have a cough?: No Do you have any weakness?: No Do you have any diarrhea?: No Are you experiencing any unusual bleeding?: No Do you have any muscle aches/pain?: No Do you have any abdominal pain?: No Are you experiencing loss of taste or smell?: No PM Subjective & Objective Subjective Subjective:: Patient is a pleasant 70-year-old male who presents today for insurance denial of his second lumbar medial branch blocks. Patient denies any new falls or injuries. He rates his pain a 7 out of 10. Patient does state he still would like to get back in for repeat injections as the first ones really did make significant improvements lasting 24 hours. Patient did right 95% relief and rated his pain during the time when it was working may be a 1 out of 10. Patient denies any new changes. He states its all they are in his low back and denies any radiating symptoms to his legs. Review of Systems: General: No recent weight changes, no fever, no sleep disturbances Respiratory: No cough, no shortness of air, no recurring pulmonary infections Cardiovascular/peripheral vascular: No chest pain, no palpitations, no edema, no shortness of breath Gastrointestinal: No new onset incontinence, normal bowel movements reported Genitourinary: No new onset incontinence Musculoskeletal: Low back pain Psychiatric: [Normal mood/affect] Neurological: [Denies weakness in extremities], [denies balance issues] Pain at rest (0-10 scale): 7 Objective Objective:: Physical Exam: General: Alert and oriented x3, no acute distress, pleasant and cooperative Lungs: Respirations even and unlabored, symmetrical chest expansion Eyes: PERRL Musculoskeletal: Flexion and extension of lumbar [spine] somewhat guarded secondary to pain, [antalgic gait noted] positive Kemps test Neurological: Speech clear, no gross sensory deficit Has patient had previous pain injection?: No Conservative treatment options previously tried: Home exercise plan Length of treatment: Longer than 12 weeks Meds Home Medications and Allergies Home Medications ?Medication ?Instructions ?Recorded ?Confirmed ?Type folic acid 1 mg tablet 1 mg PO DAILY Supplement 01/01/23 07/15/25 History gabapentin 300 mg capsule 300 mg PO PM Rheumatoid arthritis 01/01/23 07/15/25 History hydrocodone 10 mg-acetaminophen 1 tab PO Q6HP PRN PAIN 01/01/23 07/15/25 History 325 mg tablet cholecalciferol (vitamin D3) 125 125 mcg PO DAILY 12/21/23 07/15/25 History mcg (5,000 unit) capsule famotidine 20 mg tablet (Pepcid) 20 mg PO DAILY 12/21/23 07/15/25 History fish piv-yzjil2-xcy C-vit E 2,000 See Rx Instructions PO .COMPLEX 12/21/23 07/15/25 History mg-650 mg-12 mg/2.5 g emulsion packt loratadine 10 mg tablet (Claritin) 10 mg PO DAILY 12/21/23 07/15/25 History pyridoxine (vitamin B6) 50 mg 50 mg PO DAILY 07/17/24 07/15/25 History tablet atorvastatin 40 mg tablet 40 mg PO DAILY 01/15/25 07/15/25 History cyanocobalamin (vitamin B-12) 1,000 mcg SQ MONTHLY 01/15/25 07/15/25 History 1,000 mcg/mL injection solution syringe with needle 3 mL 25 gauge #1 ea 01/15/25 06/25/25 History x 1 (BD Luer-Magdalena Syringe) lidocaine 5 % topical patch 1 patch topical DAILY #15 ea 01/30/25 07/15/25 Rx methocarbamol 1,000 mg tablet 1,000 mg PO QID PRN Spasms 72 01/30/25 07/15/25 Rx hours #12 tabs apixaban 5 mg tablet (Eliquis) See Rx Instructions .Route 02/25/25 07/15/25 Rx .COMPLEX #180 tabs bisoprolol fumarate 5 mg tablet See Rx Instructions .Route 06/27/25 07/15/25 Rx .COMPLEX #90 tabs amlodipine 2.5 mg tablet 2.5 mg PO DAILY #30 tabs 07/15/25 07/15/25 Rx methotrexate sodium 2.5 mg tablet 20 mg PO WEEKLY 07/15/25 07/15/25 History valsartan 320 mg tablet 320 mg PO DAILY #30 tabs 07/15/25 07/15/25 Rx New Prescriptions to Start Prescriptions: Allergies Allergy/AdvReac Type Severity Reaction Status Date / Time No Known Allergies Allergy Verified 07/15/25 09:58 Assessment and Plan *Assessment and plan (1) History of lumbar fusion: Status: Acute Category: Surgical Code(s): Z98.1 - Arthrodesis status (2) Chronic back pain: Status: Acute Category: Medical Code(s): M54.9 - Dorsalgia, unspecified; G89.29 - Other chronic pain (3) Lumbar facet arthropathy: Status: Acute Category: Medical Code(s): M47.816 - Spondylosis without myelopathy or radiculopathy, lumbar region Plan Patient did have a successful first lumbar medial branch block and I did review with him regarding repeat diagnostic block. Patient had 95% relief lasting 24 hours with his first lumbar medial branch block. Patient stated today that he had maybe 1 out of 10 pain but it was very minimal. He had improved function with decreased pain. I do think that the patient would benefit from a second block. Risk and benefits were discussed with patient and he would like to proceed forward with this plan of care. Patient did have limited range of motion of his lumbar spine during today's visit with a positive Kemps test. Patient was counseled if he does get significant improvement with this second diagnostic block we will proceed forward with the lumbar RFA at a later date. Patient acknowledges understanding agrees with plan of care. Patient has continued at home stretching and exercise for longer than 12 weeks with no additional changes. Patient has had chronic back pain for longer than 6 months. Patient has also had previous back surgery. Patient has failed oral medications, heat and ice, topicals. We will schedule him for the second lumbar medial branch block bilaterally L4-L5 and L5-S1 under fluoroscopy. Patient has been instructed to contact the clinic with any concerns before the next appointment. Dr. Joy has reviewed this note and agrees with this plan of care. This note was dictated using voice recognition software and make contain errors or omissions. All injections are used with Lidocaine, Bupivacaine and dexamethasone unless diagnostic in which no steroids are used. Occasionally urine drug screen is needed to verify patient's compliance with our office pain contract. This is ordered based off specific treatments related to chronic pain with the potential to abuse certain medications.
--- OUTSIDE RECORDS SUMMARY | 2025-07-15 11:21 | XMS_ITS | Encounter Summary ---
Author Organization [employer] ([place], [place], [place], [place]) Address [address] [place] [address] Care Team Providers Care Messenger Copy Name Role Phone Harris Quinn MD Primary Care Provider + [phone] Jackie Prado DIRECTOR OF AVIATION Unavailable + [phone] Encounter Details Date Type Department Care Team (Late st Contact Info) Description 10/01/2020 Transcribed Document [facility] [place] Family Medicine [address] [place] [address] ProviderJerrica MD [address] [place], [place] [address] Social History Tobacco Use Types Packs/Day Years Used Date Smoking Tobacco: Never Assessed Sex and Gender Information Value Date Recorded Sex Assigned at Male 06/20/2024 10:08 AM CDT 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 Electronically signed by [facility] Conversion Screen Vent Binder Cerner at 03/08/2023 11:31 PM CDT documented in this encounter Plan of Treatment Not on file documented as of this encounter Visit Diagnoses Not on filedocumented in this encounter Care Teams Messenger Copy Relationship Specialty Start Date End Date Harris Quinn MD [address] [place] [facility] [address] [place] [address] PCP - General Adolescent Medicine 01/12/24 Jackie Prado, DIRECTOR OF AVIATION [address] [place] [facility] [address], [place] [address] Referring Physician Nurse Practitioner 01/12/24 documented as of this encounter
--- OUTSIDE RECORDS SUMMARY | 2025-07-15 11:21 | XMS_ITS | Encounter Summary ---
Author Organization [employer] ([place], [place], [place], [place]) Address [address] [place] [address] Care Team Providers Care Director Immunology Name Role Phone Harris Quinn MD Primary Care Provider + [phone] Jackie Prado MOLD OPERATOR Unavailable + [phone] Encounter Details Date Type Department Care Team (Late st Contact Info) Description 09/29/2020 Transcribed Document [facility] Neurology - [facility] [address] [id number] John Cerda MD [address] [place] [address] [address] [place] [address] Social History Tobacco Use Types Packs/Day Years Used Date Smoking Tobacco: Never Assessed Sex and Gender Information Value Date Recorded Sex Assigned at Male 06/20/2024 10:08 AM CDT 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 5/5 strength [...] filedocumented in this encounter Care Teams Director Immunology Relationship Specialty Start Date End Date Harris Quinn MD [address] [place] [facility] [address] [place] [address] PCP - General Adolescent Medicine 01/12/24 Jackie Prado, MOLD OPERATOR [address] [place] [address], [place] [address] Referring Physician Nurse Practitioner 01/12/24 documented as of this encounter
--- OUTSIDE RECORDS SUMMARY | 2025-07-15 11:21 | XMS_ITS | Encounter Summary ---
Author Organization [employer] ([place], [place], [place], [place]) Address [address] [place] [address] Care Team Providers Care Lime Supervisor Name Role Phone Harris Quinn MD Primary Care Provider + [phone] Jackie Prado ELECTRICAL CONTROLS ENGINEER Unavailable + [phone] Encounter Details Date Type Department Care Team (Late st Contact Info) Description 10/01/2020 Transcribed Document [facility] Radiology [address] [place] [phone] Stu Liang MD [address] [place] [address] [address] [place] [address] Social History Tobacco Use Types Packs/Day Years Used Date Smoking Tobacco: Never Assessed Sex and Gender Information Value Date Recorded Sex Assigned at Male 06/20/2024 10:08 AM CDT 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 There is contact of the [id number] root in the lateral recess.L3-L4: There is [...] stenosis. This contacts and displaces the right Q0lixke root. There is mild right foraminal narrowing. [...] Mon HR 66 (OCT 01:) 62 (SEP 30:17) 85 (SEP 30:08) Periph HR 49 (SEP 30:) 49 (SEP 30 15:) 49 (SEP 30 15:) Resp Rate 16 (OCT 01:) 14 (SEP 30:02) 18 (SEP 30:) SBP 121 (OCT 01:) 99 (OCT 01 02:00) H 165 (SEP 30:) DBP L 45 (OCT 01:) L 39 (OCT 01 02:00) 64 (SEP 30 21:00) MAP 63 (OCT 01:) 53 (OCT 01 02:00) 92 (SEP 30:) SpO2 97 (OCT 01:) 96 (SEP 30:00) 99 (SEP 30:) General: Alert and oriented, [...] Results Review Radiology Results (Last 48 hours) [id number] -- 09/29/2020 14:[address] in OR [...] on filedocumented in this encounter Care Teams Lime Supervisor Relationship Specialty Start Date End Date Harris Quinn MD [address] [place] [address] [place] [address] PCP - General Adolescent Medicine 01/12/24 Jackie Prado, ELECTRICAL CONTROLS ENGINEER [address] [place] [address], [place] [address] Referring Physician Nurse Practitioner 01/12/24 documented as of this encounter
--- OUTSIDE RECORDS SUMMARY | 2025-07-15 11:21 | XMS_ITS | Encounter Summary ---
Author Organization [employer] ([place], [place], [place], [place]) Address [address] [place] [address] Care Team Providers Care Software Asset Management Analyst Name Role Phone Harris Quinn MD Primary Care Provider + [phone] Jackie Prado WHITE SUGAR BOILER Unavailable + [phone] Encounter Details Date Type Department Care Team (Late st Contact Info) Description 09/28/2020 Transcribed Document [facility] [place] Family Medicine [address] [place] [address] ProviderJerrica MD [address] [place], [place] [id number] Social History Tobacco Use Types Packs/Day Years Used Date Smoking Tobacco: Never Assessed Sex and Gender Information Value Date Recorded Sex Assigned at Male 06/20/2024 10:08 AM CDT 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 Gender Identity Male 06/20/2024 10:08 AM CDT Sexual Orientation Not on file documented as of this encounter Miscellaneous Notes * Cerner Conversion Note - Jerrica ProviderMD - 09/28/2020 12:09 PM EGG SORTER UM Authorization Entered On: 09/28/2020 12:10 EST Performed On: 09/28/2020 12:09 EST by Rema Dawn Rn-Utilization Review Primary Insurance Authorization Authorization and Policy Numbers : Insurance 1 Health Plan: [employer] Policy Number: [id number] Authorization Number: Insurance Primary Name : [employer] Policy Number: [id number] Authorized Service Begin Date-Primary : 09/27/2020 EST Authorization Comments-Primary : EM TO UR TEAM TO UPGRADE TO IP IF PATIENT HAS SURGERY Historical Authorization Comments-Primary : No Authorization Comments Found Rema Dawn Rn-Utilization Review - 09/28/2020 12:09 EST Electronically signed by [facility] Conversion Medical Engineer Cerner at 03/08/2023 11:37 PM CDT documented in this encounter Plan of Treatment Not on file documented as of this encounter Visit Diagnoses Not on filedocumented in this encounter Care Teams Software Asset Management Analyst Relationship Specialty Start Date End Date Harris Quinn MD [address] [facility] [address] [place] [address] PCP - General Adolescent Medicine 01/12/24 Jackie Prado, WHITE SUGAR BOILER [address] [facility] [address], [place] [address] Referring Physician Nurse Practitioner 01/12/24 documented as of this encounter
--- OUTSIDE RECORDS SUMMARY | 2025-07-15 11:21 | XMS_ITS | Encounter Summary ---
Author Organization [employer] ([place], [place], [place], [place]) Address [address] [place] [address] Care Team Providers Care Electronic Transaction Implementer Name Role Phone Harris Quinn MD Primary Care Provider + [phone] Jackie Prado CROSS TIE MAKER Unavailable + [phone] Encounter Details Date Type Department Care Team (Late st Contact Info) Description 09/28/[address] 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 PT Charges Entered On: 09/28/2020 12:35 EST Performed On: 09/28/2020 11:24 EST by JOS PATEL PT [facility] PT Charges Physical Therapy Screen : 1 JOS PATEL PT - 09/28/2020 12:35 EST Electronically signed by [facility] Conversion Inset Cutter Cerner at 03/08/2023 11:29 PM CDT documented in this encounter Plan of Treatment Not on file documented as of this encounter Visit Diagnoses Not on filedocumented in this encounter Care Teams Electronic Transaction Implementer Relationship Specialty Start Date End Date Harris Quinn MD [address] [place] [facility] [address] [place] [address] PCP - General Adolescent Medicine 01/12/24 Jackie Prado, CROSS TIE MAKER [address] [place] [facility] [address], [place] [address] Referring Physician Nurse Practitioner 01/12/24 documented as of this encounter
--- OUTSIDE RECORDS SUMMARY | 2025-07-15 11:21 | XMS_ITS | Encounter Summary ---
Author Organization [employer] ([place], [place], [place], [place]) Address [address] [place] [address] Care Team Providers Care Upper Stitcher Name Role Phone Harris Quinn MD Primary Care Provider + [phone] Jackie Prado CEMENT CRUSHER OPERATOR Unavailable + [phone] Encounter Details Date Type Department Care Team (Late st Contact Info) Description 09/29/2020 Transcribed Document [facility] Radiology [address] [place] [phone] Stu Liang MD [address] [place] [address] [address] [place] [address] Social History Tobacco Use Types Packs/Day Years Used Date Smoking Tobacco: Never Assessed Sex and Gender Information Value Date Recorded Sex Assigned at Male 06/20/2024 10:08 AM CDT 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 Gender Identity Male 06/20/2024 10:08 AM CDT [...] mg, Oral, Daily Lovenox: 70 mg, SubCutaneous, [id number] MiraLax: 17 Gram, Oral, Daily, PRN: Constipation [...] Last Charted Minimum Maximum Temp 97.9 (SEP 29 06:45) 97.9 (SEP 29 06:45) 98.2 (SEP 28 11:00) Mon HR 66 (SEP 29 06:45) 60 (SEP 29 02:30) 89 (SEP 28 18:47) Resp Rate 14 (SEP 29:45) 14 (SEP 29 06:45) 16 (SEP 28 23:00) SBP H 152 (SEP 29 06:45) H 146 (SEP 29 02:30) H 167 (SEP 28 15:00) DBP L 56 (SEP 29:45) L 56 (SEP 29 06:45) 70 (SEP 28 11:00) MAP 81 (SEP 29 06:45) 81 (SEP 29:45) 89 (SEP 28 18:47) SpO2 98 (SEP 29:45) L 92 (SEP 28 18:47) 98 (SEP [...] Results Review Radiology Results (Last 48 hours) [id number] -- 09/27/2020 17:07 MRI Spine Lumbar WO [...] nerve root. There is contact of the T3liiwh root in the lateral recess.L3-L4: There is [...] stenosis. This contacts and displaces the right Y1ciuqd root. There is mild right foraminal narrowing. [...] on filedocumented in this encounter Care Teams Upper Stitcher Relationship Specialty Start Date End Date Harris Quinn MD [address] [place] [facility] [address] [place] [address] PCP - General Adolescent Medicine 01/12/24 Jackie Prado, CEMENT CRUSHER OPERATOR [address] [place] [facility] [address], [place] [address] Referring Physician Nurse Practitioner 01/12/24 documented as of this encounter
--- OUTSIDE RECORDS SUMMARY | 2025-07-15 11:21 | XMS_ITS | Encounter Summary ---
Author Organization [employer] ([place], [place], [place], [place]) Address [address] [place] [address] Care Team Providers Care It Engineer Name Role Phone Harris Quinn MD Primary Care Provider + [phone] Jackie Prado PHYSICS PROFESSOR Unavailable + [phone] Encounter Details Date Type Department Care Team (Late st Contact Info) Description 10/01/2020 Transcribed Document [facility] [place] [address] [place] [address] ProviderJerrica MD [address] [place] [address] Social History Tobacco Use Types Packs/Day Years Used Date Smoking Tobacco: Never Assessed Sex and Gender Information Value Date Recorded Sex Assigned at Male 06/20/2024 10:08 AM CDT Legal Sex Male 7:36 AM PSYCHOLOGY ASSISTANT Gender Identity Male 06/20/2024 10:08 AM CDT Sexual Orientation Not on file documented as of this encounter Miscellaneous Notes * [employer] Conversion Note - Historical ProviderMD - 10/01/2020 11:40 AM PSYCHOLOGY ASSISTANT Treatment Intervention, OT Entered On: 10/02/2020 14:36 [...] Treatment Time : 10 Minute(s) CHRISTIAN FONTANEZ OTR/L - 10/02/2020 14:34 EST Self Care/Home Management, OT Lower Body Dressing Assist Level, OT : Supervision or set-up CHRISTIAN FONTANEZ OTR/L - 10/02/2020 14:34 EST Functional Mobility Mobility Grid Sit to Stand : Supervision/set-up Bed to Chair : Supervision/set-up Stand to Sit : Supervision/set-up CHRISTIAN FONTANEZ OTR/L - 10/02/2020 14:34 EST Plan of Care, OT OT Tx Plan/Goals Established w Patient : Yes CHRISTIAN FONTANEZ OTR/L - 10/02/2020 14:34 EST Boot Lace Cutter Machine Goals, OT Grooming LTG Grid Goal #1 Activity : Grooming Assist : Independent, modified Date to Meet : 10/15/2020 EST Goal Status : Initial goal CHRISTIAN FONTANEZ OTR/L - 10/02/2020 14:34 EST Bathing LTG Grid Goal #1 Activity : Bathing Assist : Independent, modified Date to Meet : 10/15/2020 EST Goal Status : Initial goal CHRISTIAN FONTANEZ OTR/L - 10/02/2020 14:34 EST Dressing, Lower Body LTG Grid Goal #1 Activity : Dressing, Lower Body Assist : Independent, modified Date to Meet : 10/15/2020 EST Goal Status : Initial goal CHRISTIAN FONTANEZ OTR/L - 10/02/2020 14:34 EST Toileting LTG Grid Goal #1 Activity : Toileting Assist : Independent, modified Date to Meet : 10/15/2020 EST Goal Status : Initial goal CHRISTIAN FONTANEZ OTR/L - 10/02/2020 14:34 EST Toilet Transfer LTG Grid Goal #1 Activity : Toilet Transfer, Ambulatory Assist : Independent, modified Date to Meet : 10/15/2020 EST Goal Status : Initial goal HUSEYIN CHRISTIAN OTR/L - 10/02/2020 14:34 EST Bed Mobility/ Bed Transfer LTG Grid Goal #1 Activity : Bed Mobility/Bed Transfer Assist : Independent, modified Date to Meet : 10/15/2020 EST Goal Status : Initial goal HUSEYIN CHRISTIAN OTR/L - 10/02/2020 14:34 EST Treatment Note [...] Treatment : Cont OT POC CHRISTIAN FONTANEZ OTR/Sebastien - 10/02/2020 14:34 EST Pain Assessment Pain Score Pre-Intervention : 4 CHRISTIAN FONTANEZ OTR/L - 10/02/2020 14:34 EST Image 1 - Images currently included in the form version of this document have not been included in the text rendition version of the form. [facility] OT Charges OT Selfcare/Hm Mgmt Ea 15 Min : 1 CHRISTIAN FONTANEZ OTR/Sebastien - 10/02/2020 14:34 EST documented in this encounter Plan of Treatment Not on file documented as of this encounter Visit Diagnoses Not on filedocumented in this encounter Care Teams It Engineer Relationship Specialty Start Date End Date Harris Quinn MD [address] [place] [address] [place] [address] PCP - General Adolescent Medicine 01/12/24 Jackie Prado, PHYSICS PROFESSOR [address] [place] [address], [place] [address] Referring Physician Nurse Practitioner 01/12/24 documented as of this encounter
--- OUTSIDE RECORDS SUMMARY | 2025-07-15 11:21 | XMS_ITS | Encounter Summary ---
Author Organization [employer] ([place], [place], [place], [place]) Address [address] [place] [address] Care Team Providers Care Crystallography Teacher Name Role Phone Harris Quinn MD Primary Care Provider + [phone] Jackie Prado HADOOP ADMINISTRATOR Unavailable + [phone] Encounter Details Date Type Department Care Team (Late st Contact Info) Description 10/02/2020 Transcribed Document [facility] [place] [address] [place] [address] ProviderJerrica MD [address] [place], [place] [id number] Social History Tobacco Use Types Packs/Day Years Used Date Smoking Tobacco: Never Assessed Sex and Gender Information Value Date Recorded Sex Assigned at Male 06/20/2024 10:08 AM CDT Legal Sex Male 7:36 AM COMMISSARY REPRESENTATIVE Gender Identity Male 06/20/2024 10:08 AM CDT Sexual Orientation Not on file documented as of this encounter Miscellaneous Notes * Cerner Conversion Note - Jerrica ProviderMD - 10/02/2020 2:00 AM COMMISSARY REPRESENTATIVE Pain Assessment Entered On: 10/02/2020 3:37 EST Performed On: 10/02/2020 3:41 EST by Armando Armenta Rn Intervention Information: acetaminophen Performed by Armando Armenta Rn on 10/02/2020 02:41:00 EST acetaminophen,650mg Oral Pain Assessment Pain Scale Goal : 2 Armando Armenta Rn - 10/02/2020 3:37 EST Electronically signed by Bailey [facility] Conversion Margarine Maker Cerner at 03/08/2023 11:29 PM CDT documented in this encounter Plan of Treatment Not on file documented as of this encounter Visit Diagnoses Not on filedocumented in this encounter Care Teams Crystallography Teacher Relationship Specialty Start Date End Date Harris Quinn MD [address] [place] [facility] [address] [place] [address] PCP - General Adolescent Medicine 01/12/24 Jackie Prado, HADOOP ADMINISTRATOR [address] [place] [facility] [address], [place] [address] Referring Physician Nurse Practitioner 01/12/24 documented as of this encounter
--- OUTSIDE RECORDS SUMMARY | 2025-07-15 11:21 | XMS_ITS | Encounter Summary ---
Author Organization [employer] ([place], [place], [place], [place]) Address [address] [place] [address] Care Team Providers Care Customer Quality Specialist Name Role Phone Harris Quinn MD Primary Care Provider + [phone] Jackie Prado REPOSSESSOR Unavailable + [phone] Encounter Details Date Type Department Care Team (Late st Contact Info) Description 09/28/2020 Transcribed Document [facility] [place] [address] [place] [address] ProviderJerrica MD [address] [place], [place] [address] Social History Tobacco Use Types Packs/Day Years Used Date Smoking Tobacco: Never Assessed Sex and Gender Information Value Date Recorded Sex Assigned at Male 06/20/2024 10:08 AM CDT Legal Sex Male 7:36 AM SALES ADMINISTRATION MANAGER Gender Identity Male 06/20/2024 10:08 AM CDT Sexual Orientation Not on file documented as of this encounter Miscellaneous Notes * Cerner Conversion Note - Jerrica ProviderMD - 09/28/2020 12:09 PM SALES ADMINISTRATION MANAGER UM Authorization Entered On: 09/28/2020 12:09 EST Performed On: 09/28/2020 12:09 EST by Rema Dawn Rn-Utilization Review Primary Insurance Authorization Authorization and Policy Numbers : Insurance 1 Health Plan: [employer] Policy Number: [id number] Authorization Number: Insurance Primary Name : JOAQUIM [employer] Policy Number: [id number] Authorized Service Begin Date-Primary : 09/27/2020 EST Historical Authorization Comments-Primary : No Authorization Comments Found Rema Dawn, Rn-Utilization Review - 09/28/2020 12:09 EST Electronically signed by Bailey, [facility] Conversion Roll Tender Cerner at 03/08/2023 11:33 PM CDT documented in this encounter Plan of Treatment Not on file documented as of this encounter Visit Diagnoses Not on filedocumented in this encounter Care Teams Customer Quality Specialist Relationship Specialty Start Date End Date Harris Quinn MD [address] [place] [facility] [address] [place] [address] PCP - General Adolescent Medicine 01/12/24 Jackie Prado, REPOSSESSOR [address] [place] [facility] [address], [place] [address] Referring Physician Nurse Practitioner 01/12/24 documented as of this encounter
--- OUTSIDE RECORDS SUMMARY | 2025-07-15 11:21 | XMS_ITS | Encounter Summary ---
Author Organization [employer] ([place], [place], [place], [place]) Address [address] [place] [address] Care Team Providers Care Talent Development Consultant Name Role Phone Harris Quinn MD Primary Care Provider + [phone] Jackie Prado RELIEF MANAGER Unavailable + [phone] Encounter Details Date Type Department Care Team (Late st Contact Info) Description 10/01/2020 Transcribed Document [facility] [place] [address] [place] [address] ProviderJerrica MD [address] [place], [place] [address] Social History Tobacco Use Types Packs/Day Years Used Date Smoking Tobacco: Never Assessed Sex and Gender Information Value Date Recorded Sex Assigned at Male 06/20/2024 10:08 AM CDT Legal Sex Male 7:36 AM PATIENT ACCESS COORDINATOR Gender Identity Male 06/20/2024 10:08 AM CDT Sexual Orientation Not on file documented as of this encounter Miscellaneous Notes * Cerner Conversion Note - Historical ProviderMD - 10/01/2020 6:00 PM PATIENT ACCESS COORDINATOR Pain Assessment Entered On: 10/02/2020 3:37 EST Performed On: 10/01/2020 19:35 EST by Armando Armenta Rn Intervention Information: acetaminophen Performed by Jessica Boyer RN on 10/01/2020 18:35:00 EST acetaminophen,650mg Oral Pain Assessment Pain Scale Goal : 2 Armando Armenta Rn - 10/02/2020 3:37 EST Electronically signed by Bailey [facility] Conversion Culinary Internship Cerner at 03/08/2023 11:50 PM CDT documented in this encounter Plan of Treatment Not on file documented as of this encounter Visit Diagnoses Not on filedocumented in this encounter Care Teams Talent Development Consultant Relationship Specialty Start Date End Date Harris Quinn MD [address] [place] [facility] [address] [place] [address] PCP - General Adolescent Medicine 01/12/24 Jackie Prado, RELIEF MANAGER [address] [place] [facility] [address], [place] [address] Referring Physician Nurse Practitioner 01/12/24 documented as of this encounter
--- OUTSIDE RECORDS SUMMARY | 2025-07-15 11:21 | XMS_ITS | Encounter Summary ---
Author Organization [employer] ([place], [place], [place], [place]) Address [address] [place] [address] Care Team Providers Care Floor Installer Name Role Phone Harris Quinn MD Primary Care Provider + [phone] Jackie Prado KEYCASE ASSEMBLER Unavailable + [phone] Encounter Details Date Type Department Care Team (Late st Contact Info) Description 09/28/2020 Transcribed Document [facility] [place] [address] [place] [address] ProviderJerrica MD [address] [place], [place] [id number] Social History Tobacco Use Types Packs/Day Years Used Date Smoking Tobacco: Never Assessed Sex and Gender Information Value Date Recorded Sex Assigned at Male 06/20/2024 10:08 AM CDT Legal Sex Male 7:36 AM PUBLIC SERVICES LIBRARIAN Gender Identity Male 06/20/2024 10:08 AM CDT Sexual Orientation Not on file documented as of this encounter Miscellaneous Notes * Cerner Conversion Note - Historical ProviderMD - 09/28/2020 11:19 AM [address] LIBRARIAN [facility] OT Charges Entered On: 09/28/2020 13:26 EST Performed On: 09/28/2020 11:19 EST by JAYNE MENDOZA OTR/Sebastien Mcmanus OT Charges Screen For Linecasting Machine Keyboard Operator : 1 JAYNE MENDOZA OTR/Sebastien - 09/28/2020 13:24 EST documented in this encounter Plan of Treatment Not on file documented as of this encounter Visit Diagnoses Not on filedocumented in this encounter Care Teams Floor Installer Relationship Specialty Start Date End Date Harris Quinn MD [address] [place] [facility] [address] [place] [address] PCP - General Adolescent Medicine 01/12/24 Jackie Prado, KEYCASE ASSEMBLER [address] [place] [facility] [address], [place] [address] Referring Physician Nurse Practitioner 01/12/24 documented as of this encounter
--- OUTSIDE RECORDS SUMMARY | 2025-07-15 11:21 | XMS_ITS | Encounter Summary ---
Author Organization [employer] ([place], [place], [place], [place]) Address [address] [place] [address] Care Team Providers Care Leather Stamper Name Role Phone Harris Quinn MD Primary Care Provider + [phone] Jackie Prado CLINIC MANAGER Unavailable + [phone] Encounter Details Date Type Department Care Team (Late st Contact Info) Description 09/28/2020 Transcribed Document [facility] [place] [facility] [place] [address] [place] [address] ProviderJerrica MD [address] [place], [place] [id number] Social History Tobacco Use Types Packs/Day Years Used Date Smoking Tobacco: Never Assessed Sex and Gender Information Value Date Recorded Sex Assigned at Male 06/20/2024 10:08 AM CDT Legal Sex Male 7:36 AM COOK FISH [employer] CHIPS Gender Identity Male 06/20/2024 10:08 AM CDT Sexual Orientation Not on file documented as of this encounter Miscellaneous Notes * Cerner Conversion Note - Historical ProviderMD - 09/28/2020 11:19 AM [employer] Therapy Screen, OT Entered On: 09/28/2020 13:25 [...] after sx. OT will screen this order. JAYNE MENDOZA, OTR/L - 09/28/2020 13:24 EST Electronically signed by Bailey, [facility] Conversion Engineering Technical Writer Cerner at 03/08/2023 11:25 PM CDT documented in this encounter Plan of Treatment Not on file documented as of this encounter Visit Diagnoses Not on filedocumented in this encounter Care Teams Leather Stamper Relationship Specialty Start Date End Date Harris Quinn MD [address] [facility] [address] [place] [address] PCP - General Adolescent Medicine 01/12/24 Jackie Prado, CLINIC MANAGER 12[address] [facility] [address], [place] [address] Referring Physician Nurse Practitioner 01/12/24 documented as of this encounter
--- OUTSIDE RECORDS SUMMARY | 2025-07-15 11:21 | XMS_ITS | Encounter Summary ---
Author Organization [employer] ([place], [place], [place], [place]) Address [address] [place] [address] Care Team Providers Care Environmental Compliance Engineer Name Role Phone Harris Quinn MD Primary Care Provider + [phone] Jackie Prado PAINTING TECHNICIAN Unavailable + [phone] Encounter Details Date Type Department Care Team (Late st Contact Info) Description 10/01/2020 Transcribed Document [facility] Neurology - [facility] [address] [id number] John Cerda MD [address] [place] [address] [address] [place] [address] Social History Tobacco Use Types Packs/Day Years Used Date Smoking Tobacco: Never Assessed Sex and Gender Information Value Date Recorded Sex Assigned at Male 06/20/2024 10:08 AM CDT Legal Sex Male 7:36 AM HISTORIOGRAPHER Gender Identity Male 06/20/2024 10:08 AM CDT [...] (SEP 30:08) Mon HR 66 (OCT 01:) 56 (SEP 30 10:29) 85 (SEP 30 20:08) Periph HR 49 (SEP 30 15:02) 49 (SEP 30 15:02) 49 (SEP 30 15:02) Resp Rate 16 (OCT 01:) 14 (SEP 30 15:02) 18 (SEP 30:) SBP 121 (OCT 01:) 99 (OCT 01 02:00) H 165 (SEP 30:) DBP L 45 (OCT 01:) L 39 (OCT 01 02:00) 64 (SEP 30:00) MAP 63 (OCT 01:) 53 (OCT 01 02:00) 92 (SEP 30:00) SpO2 97 (OCT 01) 96 (SEP 30:00) 99 (SEP 30:) AAOx3. [...] on filedocumented in this encounter Care Teams Environmental Compliance Engineer Relationship Specialty Start Date End Date Harris Quinn MD [address] [place] [facility] [address] [place] [address] PCP - General Adolescent Medicine 01/12/24 Jackie Prado, PAINTING TECHNICIAN [address] [place] [address], [place] [address] Referring Physician Nurse Practitioner 01/12/24 documented as of this encounter
--- OUTSIDE RECORDS SUMMARY | 2025-07-15 11:21 | XMS_ITS | Encounter Summary ---
Author Organization [employer] ([place], [place], [place], [place]) Address [address] [place] [address] Care Team Providers Care Cash Application Clerk Name Role Phone Harris Quinn MD Primary Care Provider + [phone] Jackie Prado CASE TECHNICIAN Unavailable + [phone] Encounter Details Date Type Department Care Team (Late st Contact Info) Description 09/27/2020 Transcribed Document [facility] [place] [address] [place] [address] ProviderJerrica MD [address] [place], [place] [address] Social History Tobacco Use Types Packs/Day Years Used Date Smoking Tobacco: Never Assessed Sex and Gender Information Value Date Recorded Sex Assigned at Male 06/20/2024 10:08 AM CDT Legal Sex Male 7:36 AM CORROSION ENGINEER Gender Identity Male 06/20/2024 10:08 AM CDT Sexual Orientation Not on file documented as of this encounter Miscellaneous Notes * Cerner Conversion Note - Jerrica ProviderMD - 09/27/2020 5:07 PM CORROSION ENGINEER Meds to Bed Enrollment Entered On: 09/29/2020 7:14 EST Performed On: 09/27/2020 17:07 EST by Magnus Ash IMPREGNATOR [employer]ODU[employer] LEAD Meds to Bed Enrollment Patient Enrollment Decision: : Yes/enroll in meds to bed program Magnus Ash PHARMACY TECH LEAD - 09/29/2020 7:14 EST documented in this encounter Plan of Treatment Not on file documented as of this encounter Visit Diagnoses Not on filedocumented in this encounter Care Teams Cash Application Clerk Relationship Specialty Start Date End Date Harris Quinn MD [address] [place] [facility] [address] [place] [address] PCP - General Adolescent Medicine 01/12/24 Jackie Prado, CASE TECHNICIAN [address] [place] [facility] [address], [place] [address] Referring Physician Nurse Practitioner 01/12/24 documented as of this encounter
--- OUTSIDE RECORDS SUMMARY | 2025-07-15 11:21 | XMS_ITS | Encounter Summary ---
Author Organization [employer] ([place], [place], [place], [place]) Address [address] [place] [address] Care Team Providers Care Cable Repairer Name Role Phone Harris Quinn MD Primary Care Provider + [phone] Jackie Prado CPHT Unavailable + [phone] Encounter Details Date Type Department Care Team (Late st Contact Info) Description 09/28/2020 Transcribed Document [facility] Radiology [address] [place] [phone] Stu Liang MD [address] [place] [address] [address] [place] [address] Social History Tobacco Use Types Packs/Day Years Used Date Smoking Tobacco: Never Assessed Sex and Gender Information Value Date Recorded Sex Assigned at Male 06/20/2024 10:08 AM CDT Legal Sex Male 7:36 AM COLOR ARTIST Gender Identity Male 06/20/2024 10:08 AM CDT [...] mg, Oral, Daily Lovenox: 70 mg, SubCutaneous, Q37MBtc MiraLax: 17 Gram, Oral, Daily, PRN: Constipation [...] (SEP 27 22:00) SBP H 155 (SEP 28 06:30) H 148 (SEP 27 22:00) H 155 (SEP 28 02:00) DBP 71 (SEP 28:30) L 53 (SEP 27 19:20) 71 (SEP 28 06:30) MAP 92 (SEP 28 06:30) 73 (SEP 27 19:20) 92 (SEP 28 06:30) SpO2 98 (SEP 28:30) 98 (SEP 28 06:30) 98 (SEP 28 06:30) General: Alert and oriented, No acute distress. [...] Results Review Radiology Results (Last 48 hours) [id number] -- 09/27/2020 17:07 MRI Spine Lumbar WO [...] nerve root. There is contact of the W5wopmz root in the lateral recess.L3-L4: There is [...] stenosis. This contacts and displaces the right M0waesz root. There is mild right foraminal narrowing. [...] on filedocumented in this encounter Care Teams Cable Repairer Relationship Specialty Start Date End Date Harris Quinn MD [address] [place] [facility] [address] [place] [address] PCP - General Adolescent Medicine 01/12/24 Jackie Prado, CPHT [address] [place] [address], [place] [address] Referring Physician Nurse Practitioner 01/12/24 documented as of this encounter
--- OUTSIDE RECORDS SUMMARY | 2025-07-15 11:21 | XMS_ITS | Encounter Summary ---
Author Organization [employer] ([place], [place], [place], [place]) Address [address] [place] [address] Care Team Providers Care Brusher Name Role Phone Harris Quinn MD Primary Care Provider + [phone] Jackie Prado CALL CENTER RECEPTIONIST Unavailable + [phone] Encounter Details Date Type Department Care Team (Late st Contact Info) Description 10/01/2020 Transcribed Document [facility] [place] [address] [place] [address] ProviderJerrica MD [address] [place] [address] Social History Tobacco Use Types Packs/Day Years Used Date Smoking Tobacco: Never Assessed Sex and Gender Information Value Date Recorded Sex Assigned at Male 06/20/2024 10:08 AM CDT Legal Sex Male 7:36 AM JINRIKISHA DRIVER Gender Identity Male 06/20/2024 10:08 AM CDT Sexual Orientation Not on file documented as of this encounter Miscellaneous Notes * Cerner Conversion Note - Historical ProviderMD - 10/01/2020 11:39 AM JINRIKISHA DRIVER Treatment Intervention, PT Entered On: 10/02/2020 15:18 [...] EST Ambulatory Devices : None, Gait belt LIV RICHARDSON, PT - 10/02/2020 15:19 EST Cognitive [...] BURKETT Student-Physical Therapist - 10/02/2020 15:01 EST Correction Goals Mobility/Bed Mobility LTG PT Grid Goal [...] BURKETT Student-Physical Therapist - 10/02/2020 15:01 EST [place] PT Charges PT Therap. Exercise 15 min : 1 Gait Training Each 15 Min : 1 MARY BURKETT Student-Physical Therapist - 10/02/2020 15:01 EST Electronically signed by Bailey [facility] Conversion Molder Labels Cerner at 03/11/2023 9:23 AM CDT documented in this encounter Plan of Treatment Not on file documented as of this encounter Visit Diagnoses Not on filedocumented in this encounter Care Teams Brusher Relationship Specialty Start Date End Date Harris Quinn MD [address] [place] [facility] [address] [place] [address] PCP - General Adolescent Medicine 01/12/24 Jackie Prado, CALL CENTER RECEPTIONIST [address] [place] [facility] [address], [place] [address] Referring Physician Nurse Practitioner 01/12/24 documented as of this encounter
--- OUTSIDE RECORDS SUMMARY | 2025-07-15 11:21 | XMS_ITS | Encounter Summary ---
Author Organization [employer] ([place], [place], [place], [place]) Address [address] [place] [address] Care Team Providers Care Gluing Machine Offbearer Name Role Phone Harris Quinn MD Primary Care Provider + [phone] Jackie Prado POWER PLANT SUPERVISOR Unavailable + [phone] Encounter Details Date Type Department Care Team (Late st Contact Info) Description 09/30/2020 Transcribed Document [facility] [place] [address] [place] [address] ProviderJerrica MD [address] [place] [address] Social History Tobacco Use Types Packs/Day Years Used Date Smoking Tobacco: Never Assessed Sex and Gender Information Value Date Recorded Sex Assigned at Male 06/20/2024 10:08 AM CDT Legal Sex Male 7:36 AM KNURLING MACHINE OPERATOR Gender Identity Male 06/20/2024 10:08 AM CDT Sexual Orientation Not on file documented as of this encounter Miscellaneous Notes * Cerner Conversion Note - Jerrica ProviderMD - 09/30/2020 8:15 PM KNURLING MACHINE OPERATOR Pain Assessment Entered On: 10/02/2020 19:28 EST Performed On: 10/02/2020 12:12 EST by Miko Perdomo RN Intervention Information: oxyCODONE Performed by Miko Perdomo, RN on 10/02/2020 11:12:00 EST oxyCODONE,10mg Oral,Pain (Moderate 4-6) Pain Assessment Pain Assessment : Follow-up assessment Pain Scale Goal : 2 Miko Perdomo RN - 10/02/2020 19:28 EST Electronically signed by Bailey, [facility] Conversion Horseback Riding Instructor Cerner at 03/11/2023 9:23 AM CDT documented in this encounter Plan of Treatment Not on file documented as of this encounter Visit Diagnoses Not on filedocumented in this encounter Care Teams Gluing Machine Offbearer Relationship Specialty Start Date End Date Harris Quinn MD [address] [place] [facility] [address] [place] [address] PCP - General Adolescent Medicine 01/12/24 Jackie Prado, POWER PLANT SUPERVISOR [address] [place] [address], [place] [address] Referring Physician Nurse Practitioner 01/12/24 documented as of this encounter
--- OUTSIDE RECORDS SUMMARY | 2025-07-15 11:21 | XMS_ITS | Encounter Summary ---
Author Organization [employer] ([place], [place], [place], [place]) Address [address] [place] [address] Care Team Providers Care Signaling Project Engineer Name Role Phone Harris Álvarez MD Primary Care Provider + [phone] Jackie Prado SUPERVISOR RICE MILLING Unavailable + [phone] Encounter Details Date Type Department Care Team (Late st Contact Info) Description 09/29/2020 Transcribed Document [facility] [place] [address] [place] [address] ProviderJerrica MD [address] [place] [address] Social History Tobacco Use Types Packs/Day Years Used Date Smoking Tobacco: Never Assessed Sex and Gender Information Value Date Recorded Sex Assigned at Male 06/20/2024 10:08 AM CDT Legal Sex Male 7:36 AM BLOOD BANK BUSINESS MANAGER Gender Identity Male 06/20/2024 10:08 AM CDT Sexual Orientation Not on file documented as of this encounter Miscellaneous Notes * Cerner Conversion Note - Historical ProviderMD - 09/29/2020 3:41 PM BLOOD BANK BUSINESS MANAGER Initial Discharge Planning Entered On: 09/29/2020 15:43 EST Performed On: 09/29/2020 15:41 EST by RICHIE GLASGOW RN-Decorator Inspector Initial Assessment I Previously Documented Living Environment [...] n Enter Doctors Name : HARRIS ÁLVAREZ (REF), -SERGIO Does Patient have PCP Listed? : Yes RICHIE GLASGOW RN-Decorator Inspector - 09/29/2020 15:41 EST Initial Assessment II Sensory and Motor Deficits : Weakness RICHIE GLASGOW RN-Decorator Inspector - 09/29/2020 15:41 EST Discharge Needs I Anticipated Discharge To, CM : Home with home health, [facility] facility Current Home Treatment/Equipment : Current Home Treatment/Equipment No qualifying data available. Post Acute/Home Treatments : Walker Documentation Status Complete : Yes RICHIE GLASGOW RN-Decorator Inspector - 09/29/2020 15:41 EST Discharge Needs II Professional Skilled Services : Professional Skilled Services No qualifying data available. RICHIE GLASGOW RN-Decorator Inspector - 09/29/2020 15:41 EST Narrative Note Narrative Note : 65yo male pt transferred from [facility] with c/o LBP. MRI--severe canal stenosis. NSY--pt going to OR tomorrow for L2-iliac fusion. DCP dependent upon how pt does with therapy after dc. CM will follow. RICHIE GLASGOW RN-Decorator Inspector - 09/29/2020 15:41 EST Electronically signed by [facility] Conversion Numerical Control Programmer Cerner at 03/08/2023 11:41 PM CDT documented in this encounter Plan of Treatment Not on file documented as of this encounter Visit Diagnoses Not on filedocumented in this encounter Care Teams Signaling Project Engineer Relationship Specialty Start Date End Date Harris Álvarez MD [address] [place] [address] [place] [address] PCP - General Adolescent Medicine 01/12/24 Jackie Prado, SUPERVISOR RICE MILLING [address] [place] [address] [place] [address] Referring Physician Nurse Practitioner 01/12/24 documented as of this encounter
--- OUTSIDE RECORDS SUMMARY | 2025-07-15 11:21 | XMS_ITS | Encounter Summary ---
Author Organization [employer] ([place], [place], [place], [place]) Address [address] [place] [address] Care Team Providers Care Photocomposing Keyboard Operator Name Role Phone Harris Quinn MD Primary Care Provider + [phone] Jackie Prado RN FACULTY Unavailable + [phone] Encounter Details Date Type Department Care Team (Late st Contact Info) Description 10/01/2020 Transcribed Document [facility] Family Medicine [address] [place] [address] ProviderJerrica MD [address] [place], [place] [id number] Social History Tobacco Use Types Packs/Day Years Used Date Smoking Tobacco: Never Assessed Sex and Gender Information Value Date Recorded Sex Assigned at Male 06/20/2024 10:08 AM CDT Legal Sex Male 7:36 AM COOKEE Gender Identity Male 06/20/2024 10:08 AM CDT Sexual Orientation Not on file documented as of this encounter Miscellaneous Notes * Cerner Conversion Note - Jerrica ProviderMD - 10/01/2020 6:00 AM COOKEE Pain Assessment Entered On: 10/01/2020 6:49 EST Performed On: 10/01/2020 7:12 EST by Armando Armenta Rn Intervention Information: acetaminophen Performed by Armando Armenta Rn on 10/01/2020 06:12:00 EST acetaminophen,650mg Oral Pain Assessment Pain Scale Goal : 2 Armando Armenta Rn - 10/01/2020 6:49 EST Electronically signed by Bailey [facility] Conversion Clinical Athletic Instructor Cerner at 03/08/2023 11:45 PM CDT documented in this encounter Plan of Treatment Not on file documented as of this encounter Visit Diagnoses Not on filedocumented in this encounter Care Teams Photocomposing Keyboard Operator Relationship Specialty Start Date End Date Harris Quinn MD [address] [place] [facility] [address] [place] [address] PCP - General Adolescent Medicine 01/12/24 Jackie Prado, RN FACULTY [address] [place] [facility] [address], [place] [address] Referring Physician Nurse Practitioner 01/12/24 documented as of this encounter
--- OUTSIDE RECORDS SUMMARY | 2025-07-15 11:21 | XMS_ITS | Encounter Summary ---
Author Organization [employer] ([place], [place], [place], [place]) Address [address] [place] [address] Care Team Providers Care Head Teller Name Role Phone Harris Álvarez MD Primary Care Provider + [phone] Jackie Prado Mitchell HEMATOLOGY SPECIALIST Unavailable + [phone] Encounter Details Date Type Department Care Team (Late st Contact Info) Description 09/28/2020 Transcribed Document [facility] Neurology - [address] [phone] Troy Mcclure MD [address] [place] [address] [address] [place] [address] Social History Tobacco Use Types Packs/Day Years Used Date Smoking Tobacco: Never Assessed Sex and Gender Information Value Date Recorded Sex Assigned at Male 06/20/2024 10:08 AM CDT 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 Referral source: HARRIS ÁLVAREZ (REF)MDDEBBIE. Chief Complaint Severe back pain, right leg [...] and tingling. 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 He was sent to [facility] for further pain control, and MR [...] mg, Oral, Daily Lovenox: 70 mg, SubCutaneous, [id number] MiraLax: 17 Gram, Oral, Daily, PRN: Constipation [...] mL inj 70 mg 0.7 mL, SubCutaneous, [id number] gabapentin 300 mg cap 300 mg 1 [...] At risk for sleep apnea / IMO [id number] / Confirmed, Active Problems (1) At risk [...] Last Charted Minimum Maximum Temp 98.3 (SEP 28 06:30) 98.3 (SEP 28:30) 98.4 (SEP 27 19:20) [...] 28:30) 73 (SEP 27 19:20) 92 (SEP 28:30) SpO2 98 (SEP 28:30) 98 (SEP 28:30) 98 (SEP 28 06:30) General: NAD HEENT: [...] on filedocumented in this encounter Care Teams Head Teller Relationship Specialty Start Date End Date Harris Álvarez MD [address] [place] [facility] [address] [place] [address] PCP - General Adolescent Medicine 01/12/24 Jackie Prado, HEMATOLOGY SPECIALIST [address] [place] [address], [place] [address] Referring Physician Nurse Practitioner 01/12/24 documented as of this encounter
--- OUTSIDE RECORDS SUMMARY | 2025-07-15 11:21 | XMS_ITS | Encounter Summary ---
Author Organization [employer] ([place], [place], [place], [place]) Address [address] [place] [address] Care Team Providers Care On Site Coordinator Name Role Phone Harris Quinn MD Primary Care Provider + [phone] Jackie Prado AERODYNAMIC CONSULTANT Unavailable + [phone] Encounter Details Date Type Department Care Team (Late st Contact Info) Description 10/01/2020 Transcribed Document [facility] Family Medicine [address] [place] [address] ProviderJerrica MD [address] [place], [place] [address] Social History Tobacco Use Types Packs/Day Years Used Date Smoking Tobacco: Never Assessed Sex and Gender Information Value Date Recorded Sex Assigned at Male 06/20/2024 10:08 AM CDT 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 He is retired from the [employer]. His daughter and family live about 1/4 mile away. He denies use of AD/HH/Rehab stays. He had been going to [facility] outpatient PT but with no relief. He states it is crowded there and will likely go to a different outpatient PT place if appropriate. CM will continue to follow. RICHIE GLASGOW RN-Application Architect - 09/30/20 11:43:19 RICHIE GLASGOW RN-Application Architect - 10/01/2020 15:15 EST Electronically signed by Bailey [facility] Conversion Commissioner Of Internal Revenue Cerner at 03/08/2023 11:40 PM CDT documented in this encounter Plan of Treatment Not on file documented as of this encounter Visit Diagnoses Not on filedocumented in this encounter Care Teams On Site Coordinator Relationship Specialty Start Date End Date Harris Quinn MD [address] [place] [address] [place], [place] [address] PCP - General Adolescent Medicine 01/12/24 Jackie Prado, AERODYNAMIC CONSULTANT [address] [place] [address], [place] [address] Referring Physician Nurse Practitioner 01/12/24 documented as of this encounter
--- OUTSIDE RECORDS SUMMARY | 2025-07-15 11:21 | XMS_ITS | Encounter Summary ---
Author Organization [employer] ([place], [place], [place], [place]) Address [address] [place] [address] Care Team Providers Care Fuse Maker Name Role Phone Harris Quinn MD Primary Care Provider + [phone] Jackie Prado CERTIFIED MEDICAL TECHNICIAN ASSISTANT Unavailable + [phone] Encounter Details Date Type Department Care Team (Late st Contact Info) Description 09/28/2020 Transcribed Document [facility] Family Medicine [address] [place] [address] ProviderJerrica MD [address] [place], [place] [id number] Social History Tobacco Use Types Packs/Day Years Used Date Smoking Tobacco: Never Assessed Sex and Gender Information Value Date Recorded Sex Assigned at Male 06/20/2024 10:08 AM CDT 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 Gender Identity Male 06/20/2024 10:08 AM CDT Sexual Orientation Not on file documented as of this encounter Miscellaneous Notes * Cerner Conversion Note - Historical ProviderMD - 09/28/2020 11:24 AM V BELT CURER Therapy Screen, PT Entered On: 09/28/2020 12:34 EST Performed On: 09/28/2020 11:24 EST by JOS PATEL, PT Therapy Screen, PT Medical Chart Reviewed [...] 09/28/2020 12:26 EST Electronically signed by Bailey, [facility] Conversion Electromechanic Nedner at 03/08/2023 11:49 PM CDT documented in this encounter Plan of Treatment Not on file documented as of this encounter Visit Diagnoses Not on filedocumented in this encounter Care Teams Fuse Maker Relationship Specialty Start Date End Date Harris Quinn MD [address] [facility] [address] [place] [address] PCP - General Adolescent Medicine 01/12/24 Jackie Prado, ELORA [address] [facility] [address], [place] [address] Referring Physician Nurse Practitioner 01/12/24 documented as of this encounter
--- OUTSIDE RECORDS SUMMARY | 2025-07-15 11:21 | XMS_ITS | Encounter Summary ---
Author Organization [employer] ([place], [place], [place], [place]) Address [address] [place] [address] Care Team Providers Care Modeling Instructor Name Role Phone Harris Quinn MD Primary Care Provider + [phone] Jackie Prado MEDICAL DIRECTOR Unavailable + [phone] Encounter Details Date Type Department Care Team (Late st Contact Info) Description 10/02/2020 Transcribed Document [facility] [place] [address] [place] [address] ProviderJerrica MD [address] [place] [address] Social History Tobacco Use Types Packs/Day Years Used Date Smoking Tobacco: Never Assessed Sex and Gender Information Value Date Recorded Sex Assigned at Male 06/20/2024 10:08 AM CDT 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 Gender Identity Male 06/20/2024 10:08 AM CDT Sexual Orientation Not on file documented as of this encounter Miscellaneous Notes * Cerner Conversion Note - Historical ProviderMD - 10/02/2020 5:00 PM EXCELLENCE LEADER Chart Check - Review Order Profile Entered On: 10/02/2020 19:28 EST Performed On: 10/02/2020 17:00 EST by Miko Pedromo, RN Chart Check All Active Orders Reviewed : Yes Miko Perdomo RN - 10/02/2020 19:28 EST Electronically signed by Bailey [facility] Conversion Title Abstractor Cerner at 03/08/2023 11:28 PM CDT documented in this encounter Plan of Treatment Not on file documented as of this encounter Visit Diagnoses Not on filedocumented in this encounter Care Teams Modeling Instructor Relationship Specialty Start Date End Date Harris Quinn MD [address] [place] [facility] [address] [place] [address] PCP - General Adolescent Medicine 01/12/24 Jackie Prado, MEDICAL DIRECTOR [address] [place] [address], [place] [address] Referring Physician Nurse Practitioner 01/12/24 documented as of this encounter
--- OUTSIDE RECORDS SUMMARY | 2025-07-15 11:22 | XMS_ITS | Encounter Summary ---
Author Organization [employer] ([place], [place], [place], [place]) Address [address] [place] [address] Care Team Providers Care Rooming House Operator Name Role Phone Harris Quinn MD Primary Care Provider + [phone] Jackie Prado SILK SCREEN PRINTING RACKER Unavailable + [phone] Encounter Details Date Type Department Care Team (Late st Contact Info) Description 09/27/2020 Transcribed Document [facility] Radiology [address] [place] [phone] Yefri Mojica MD [address] [place] [address] [address] [place] [address] Social History Tobacco Use Types Packs/Day Years Used Date Smoking Tobacco: Never Assessed Sex and Gender Information Value Date Recorded Sex Assigned at Male 06/20/2024 10:08 AM CDT 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 Larios Transferring facility [facility] Chief complaint right leg and back pain History of present illness Patient is 65-year-old gentleman presents as a transfer from [facility] where he presented earlier today With [...] Due to excruciating pain, he presented at [facility]. He underwent CT scan of the [...] mg, Oral, Daily Lovenox: 1 mg/kg, SubCutaneous, [id number] MiraLax: 17 Gram, Oral, Daily, PRN: Constipation [...] IV Push, Q8H enoxaparin 1 mg/kg, SubCutaneous, [id number] gabapentin 300 mg cap 300 mg 1 [...] gallop, S1+ S2 No S3 or S4 [place].. Gastrointestinal: Soft, Non-tender, Non-distended, Normal bowel sounds. [...] on filedocumented in this encounter Care Teams Rooming House Operator Relationship Specialty Start Date End Date Harris Quinn MD [address] [place] [facility] [address] [place] [address] PCP - General Adolescent Medicine 01/12/24 Jackie Prado APRN [address] [place] [address], [place] [address] Referring Physician Nurse Practitioner 01/12/24 documented as of this encounter
--- OUTSIDE RECORDS SUMMARY | 2025-07-15 11:22 | XMS_ITS | Encounter Summary ---
Author Organization [employer] ([place], [place], [place], [place]) Address [address] [place] [address] Care Team Providers Care Boiler Tube Reamer Name Role Phone Harris Quinn MD Primary Care Provider + [phone] Jackie Prado BRICK CHIMNEY BUILDER Unavailable + [phone] Encounter Details Date Type Department Care Team (Late st Contact Info) Description 09/30/2020 Transcribed Document [facility] [place] [address] [place] [address] ProviderJerrica MD [address] [place] [address] Social History Tobacco Use Types Packs/Day Years Used Date Smoking Tobacco: Never Assessed Sex and Gender Information Value Date Recorded Sex Assigned at Male 06/20/2024 10:08 AM CDT 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 Gender Identity Male 06/20/2024 10:08 AM CDT Sexual Orientation Not on file documented as of this encounter Miscellaneous Notes * Cerner Conversion Note - Historical ProviderMD - 09/30/2020 8:15 PM MOTORCYCLE SUBASSEMBLER Evaluation, Physical Therapy Entered On: 10/01/2020 11:39 [...] PT : 65 yo male adm to [facility] 09/29 for Intractable back pain, and R [...] reach RN/PCT Informed Comment : yes per CLEMENTINA Lopez he had to lay flat all night, [...] with shopping due to CoVid 19 situation CHAVA ANGÉLICA, PT - 10/01/2020 11:25 EST Upper Extremity [...] ANGÉLICA LARSEN, PT - 10/01/2020 11:25 EST Senior Living Goals Mobility/Bed Mobility LTG PT Grid Goal [...] ANGÉLICA LARSEN, PT - 10/01/2020 11:25 EST [place] [facility] Charges PT Eval Low Complexity : 1 ANGÉLICA LARSEN, PT - 10/01/2020 11:25 EST Electronically signed by Bailey [facility] Conversion Fashion Coordinator Cerner at 03/08/2023 11:41 PM CDT documented in this encounter Plan of Treatment Not on file documented as of this encounter Visit Diagnoses Not on filedocumented in this encounter Care Teams Boiler Tube Reamer Relationship Specialty Start Date End Date Harris Quinn MD [address] [place] [facility] [address] [place] [address] PCP - General Adolescent Medicine 01/12/24 Jackie Prado, BRICK CHIMNEY BUILDER [address] [place] [address], [place] [address] Referring Physician Nurse Practitioner 01/12/24 documented as of this encounter
--- OUTSIDE RECORDS SUMMARY | 2025-07-15 11:22 | XMS_ITS | Encounter Summary ---
Author Organization [employer] ([place], [place], [place], [place]) Address [address] [place] [address] Care Team Providers Care System Software Programmer Name Role Phone Harris Quinn MD Primary Care Provider + [phone] Jackie Prado TRUCK RENTAL CLERK Unavailable + [phone] Encounter Details Date Type Department Care Team (Late st Contact Info) Description 10/02/2020 Transcribed Document [facility] [place] [address] [place] [address] ProviderJerrica MD [address] [place] [address] Social History Tobacco Use Types Packs/Day Years Used Date Smoking Tobacco: Never Assessed Sex and Gender Information Value Date Recorded Sex Assigned at Male 06/20/2024 10:08 AM CDT 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 Gender Identity Male 06/20/2024 10:08 AM CDT Sexual Orientation Not on file documented as of this encounter Miscellaneous Notes * Cerner Conversion Note - Jerrica ProviderMD - 10/02/2020 6:00 AM LAND APPRAISER Pain Assessment Entered On: 10/02/2020 9:52 EST Performed On: 10/02/2020 7:42 EST by Miko Perdomo RN Intervention Information: acetaminophen Performed by Armando Armenta Rn on 10/02/2020 06:42:00 EST acetaminophen,650mg Oral Pain Assessment Pain Assessment : Follow-up assessment Pain Scale Goal : 2 Miko Perdomo RN - 10/02/2020 9:52 EST Electronically signed by Bailey [facility] Conversion Learning Disabilities Resource Teacher Cerner at 03/08/2023 11:35 PM CDT documented in this encounter Plan of Treatment Not on file documented as of this encounter Visit Diagnoses Not on filedocumented in this encounter Care Teams System Software Programmer Relationship Specialty Start Date End Date Harris Quinn MD [address] [place] [facility] [address] [place] [address] PCP - General Adolescent Medicine 01/12/24 Jackie Prado, TRUCK RENTAL CLERK [address] [place] [facility] [address], [place] [address] Referring Physician Nurse Practitioner 01/12/24 documented as of this encounter
--- OUTSIDE RECORDS SUMMARY | 2025-07-15 11:22 | XMS_ITS | Encounter Summary ---
Author Organization [employer] ([place], [place], [place], [place]) Address [address] [place] [address] Care Team Providers Care Select Banker Name Role Phone Harris Quinn MD Primary Care Provider + [phone] Jackie Prado JOURNEYMAN POWER PLANT OPERATOR Unavailable + [phone] Encounter Details Date Type Department Care Team (Late st Contact Info) Description 09/30/2020 Transcribed Document [facility] Neurology - [facility] [address] [phone] John Cerda MD [address] [place] [address] [address] [place] [address] Social History Tobacco Use Types Packs/Day Years Used Date Smoking Tobacco: Never Assessed Sex and Gender Information Value Date Recorded Sex Assigned at Male 06/20/2024 10:08 AM CDT 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 Intraoperative CT scan with stereotactic navigation. ASSEMBLY CLEANER: None. TYPE OF ANESTHESIA: GEA. DESCRIPTION OF [...] stereotactic navigation. The usual freehand techniques, the sabio labsium system, and the navigation were utilized to [...] 450 mL. DRAINS: Angelo Altman. COMPLICATIONS: None. /[id number] John Cerda MD MPT/AQ / MPT / MODL /[id number] CC: Harris Quinn documented in this encounter Plan of Treatment Not on file documented as of this encounter Visit Diagnoses Not on filedocumented in this encounter Care Teams Select Banker Relationship Specialty Start Date End Date Harris Quinn MD [address] [place] [facility] [address] [place] [address] PCP - General Adolescent Medicine 01/12/24 Jackie Prado, JOURNEYMAN POWER PLANT OPERATOR [address] [place] [address], [place] [address] Referring Physician Nurse Practitioner 01/12/24 documented as of this encounter
--- OUTSIDE RECORDS SUMMARY | 2025-07-15 11:22 | XMS_ITS | Encounter Summary ---
Author Organization [employer] ([place], [place], [place], [place]) Address [address] [place] [address] Care Team Providers Care Multimedia Services Manager Name Role Phone Harris Quinn MD Primary Care Provider + [phone] Jackie Prado TECHNICAL COMMUNICATOR Unavailable + [phone] Encounter Details Date Type Department Care Team (Late st Contact Info) Description 09/30/2020 Transcribed Document [facility] Family Medicine [address] [place] [address] ProviderJerrica MD [address] [place], [place] [id number] Social History Tobacco Use Types Packs/Day Years Used Date Smoking Tobacco: Never Assessed Sex and Gender Information Value Date Recorded Sex Assigned at Male 06/20/2024 10:08 AM CDT 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 Electronically signed by Bailey, [facility] Conversion Muck Miner Blasting Cerner at 03/08/2023 11:26 PM CDT documented in this encounter Plan of Treatment Not on file documented as of this encounter Visit Diagnoses Not on filedocumented in this encounter Care Teams Multimedia Services Manager Relationship Specialty Start Date End Date Harris Quinn MD [address] [place] [facility] [address] [place] [address] PCP - General Adolescent Medicine 01/12/24 Jackie Prado, LEORA [address] [place] [address] [place] [address] Referring Physician Nurse Practitioner 01/12/24 documented as of this encounter
--- OUTSIDE RECORDS SUMMARY | 2025-07-15 11:22 | XMS_ITS | Encounter Summary ---
Author Organization [employer] ([place], [place], [place], [place]) Address [address] [place] [address] Care Team Providers Care Slat Basket Maker Name Role Phone Harris Quinn MD Primary Care Provider + [phone] Jackie Prado MOTOR VEHICLES INSPECTOR Unavailable + [phone] Encounter Details Date Type Department Care Team (Late st Contact Info) Description 10/02/2020 Transcribed Document [facility] Radiology [address] [place] [phone] Stu Liang MD [address] [place] [address] [address] [place] [address] Social History Tobacco Use Types Packs/Day Years Used Date Smoking Tobacco: Never Assessed Sex and Gender Information Value Date Recorded Sex Assigned at Male 06/20/2024 10:08 AM CDT 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 There is contact of the C8jodvb root in the lateral recess.L3-L4: There is [...] stenosis. This contacts and displaces the right L4cfjqt root. There is mild right foraminal narrowing. [...] mg, Oral, Daily Lovenox: 70 mg, SubCutaneous, [id number] MiraLax: 17 Gram, Oral, Daily, PRN: Constipation [...] 98.2 (OCT 01:) Mon HR 65 (OCT 02:10) 65 (OCT 02:10) 79 (OCT 02:49) Resp Rate 18 (OCT 02:) 16 (OCT 01:51) 19 (OCT 01 22:30) SBP H 147 (OCT 02:) 128 (OCT 02:49) H 156 (OCT 01:51) DBP L 48 (OCT 02:) L 44 (OCT 01:) 67 (OCT 01:51) MAP 69 (OCT 02:10) 66 (OCT 01:) 90 (OCT 01:) SpO2 [...] Results Review Radiology Results (Last 48 hours) [id number] -- 09/29/2020 14:[address] in [place] [...] on filedocumented in this encounter Care Teams Slat Basket Maker Relationship Specialty Start Date End Date Harris Quinn MD [address] [place] [address] [place] [address] PCP - General Adolescent Medicine 01/12/24 Jackie Prado, MOTOR VEHICLES INSPECTOR [address] [place] [address], [facility] [address], [place], [place] [id number] Referring Physician Nurse Practitioner 01/12/24 documented as of this encounter
--- OUTSIDE RECORDS SUMMARY | 2025-07-15 11:22 | XMS_ITS | Encounter Summary ---
Author Organization [employer] ([place], [place], [place], [place]) Address [address] [place] [address] Care Team Providers Care Branch Examiner Name Role Phone Harris Quinn MD Primary Care Provider + [phone] Jackie Prado WORKFORCE MANAGER Unavailable + [phone] Encounter Details Date Type Department Care Team (Late st Contact Info) Description 10/03/2020 Transcribed Document [facility] [place] Family Medicine [address] [place] [address] ProviderJerrica MD [address] [place], [place] [address] Social History Tobacco Use Types Packs/Day Years Used Date Smoking Tobacco: Never Assessed Sex and Gender Information Value Date Recorded Sex Assigned at Male 06/20/2024 10:08 AM CDT Legal Sex Male 7:36 AM TRIAGE RN Gender Identity Male 06/20/2024 10:08 AM CDT Sexual Orientation Not on file documented as of this encounter Miscellaneous Notes * Cerner Conversion Note - Historical ProviderMD - 10/03/2020 3:48 PM TRIAGE RN Discharge Summary, PT Entered On: 10/03/2020 15:54 [...] agrees with note. LIV RICHARDSON, PT - 10/03/2020 15:54 EST Half-Way Goals Mobility/Bed Mobility LTG PT Grid Goal [...] Student-Physical Therapist - 10/03/2020 15:48 EST MARY BURKETT, Student-Physical Therapist - 10/03/2020 15:48 EST MARY [...] 10/03/2020 15:48 EST Electronically signed by Bailey, [facility] Conversion Catalog Librarian Cerner at 03/08/2023 11:30 PM CDT documented in this encounter Plan of Treatment Not on file documented as of this encounter Visit Diagnoses Not on filedocumented in this encounter Care Teams Branch Examiner Relationship Specialty Start Date End Date Harris Quinn MD [address] [place] [facility] [address] [place] [address] PCP - General Adolescent Medicine 01/12/24 Jackie Prado, LEORA [address] [place] [address], [place] [address] Referring Physician Nurse Practitioner 01/12/24 documented as of this encounter
--- OUTSIDE RECORDS SUMMARY | 2025-07-15 11:22 | XMS_ITS | Encounter Summary ---
Author Organization [employer] ([place], [place], [place], [place]) Address [address] [place] [address] Care Team Providers Care Strings Teacher Name Role Phone Harris Quinn MD Primary Care Provider + [phone] Jackie Prado VAULT MECHANIC Unavailable + [phone] Encounter Details Date Type Department Care Team (Late st Contact Info) Description 09/30/2020 Transcribed Document [facility] Radiology [address] [place] [id number] Stu Liang MD [address] [place] [address] [address] [place] [address] Social History Tobacco Use Types Packs/Day Years Used Date Smoking Tobacco: Never Assessed Sex and Gender Information Value Date Recorded Sex Assigned at Male 06/20/2024 10:08 AM CDT 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 Sex Male 7:36 AM ASSOCIATE PROFESSOR OF ART Gender Identity Male 06/20/2024 10:08 AM CDT [...] HR 55 (SEP 30 06:00) 46 (SEP 30 01:36) 74 (SEP 29 11:21) Resp Rate 18 (SEP 30:00) 16 (SEP 29 14:39) 19 (SEP 30 01:36) SBP 135 (SEP 30:) 135 (SEP 30:00) H 180 (SEP 29:) DBP L 48 (SEP 30 06:) L 48 (SEP 30:) 89 (SEP 29:) MAP 68 (SEP 30:) 68 (SEP 30:00) 113 (SEP 29:) SpO2 96 (SEP 30:) [...] on filedocumented in this encounter Care Teams Strings Teacher Relationship Specialty Start Date End Date Harris Quinn MD [address] [place] [address] [place] [address] PCP - General Adolescent Medicine 01/12/24 Jackie Prado, VAULT MECHANIC [address] [place] [address], [place] [address] Referring Physician Nurse Practitioner 01/12/24 documented as of this encounter
--- OUTSIDE RECORDS SUMMARY | 2025-07-15 11:22 | XMS_ITS | Encounter Summary ---
Author Organization [employer] ([place], [place], [place], [place]) Address [address] [place] [address] Care Team Providers Care Skin Fitter Name Role Phone Harris Quinn MD Primary Care Provider + [phone] Jackie Prado TRAFFIC SURVEY TECHNICIAN Unavailable + [phone] Encounter Details Date Type Department Care Team (Late st Contact Info) Description 09/29/2020 Transcribed Document [facility] [place] [address] [place] [address] ProviderJerrica MD [address] [place], [place] [address] Social History Tobacco Use Types Packs/Day Years Used Date Smoking Tobacco: Never Assessed Sex and Gender Information Value Date Recorded Sex Assigned at Male 06/20/2024 10:08 AM CDT Legal Sex Male 7:36 AM BELT PUNCHER Gender Identity Male 06/20/2024 10:08 AM CDT Sexual Orientation Not on file documented as of this encounter Miscellaneous Notes * Cerner Conversion Note - Jerrica ProviderMD - 09/29/2020 2:46 PM BELT PUNCHER UM Authorization Entered On: 09/29/2020 14:47 EST Performed On: 09/29/2020 14:46 EST by AUSTIN KENNEY RN-Utilization Review Primary Insurance Authorization Authorization and Policy Numbers : Insurance 1 Health Plan: [employer] Policy Number: [id number] Authorization Number: Insurance Primary Name : STEPH [employer] Policy Number: [id number] Authorization Status-Primary : Awaiting callback Authorized Service [...] - 09/29/2020 14:46 EST Electronically signed by [facility], [facility] Conversion Revenue Field Auditor Cerner at 03/08/2023 11:42 PM CDT documented in this encounter Plan of Treatment Not on file documented as of this encounter Visit Diagnoses Not on filedocumented in this encounter Care Teams Skin Fitter Relationship Specialty Start Date End Date Harris Quinn MD [address] [facility] [address] [place] [address] PCP - General Adolescent Medicine 01/12/24 Jackie Prado, TRAFFIC SURVEY TECHNICIAN [address] [facility] [address], [place] [address] Referring Physician Nurse Practitioner 01/12/24 documented as of this encounter
--- OUTSIDE RECORDS SUMMARY | 2025-07-15 11:22 | XMS_ITS | Encounter Summary ---
Author Organization [employer] ([place], [place], [place], [place]) Address [address] [place] [address] Care Team Providers Care Bag Bundler Name Role Phone Harris Quinn MD Primary Care Provider + [phone] Jackie Prado PREPAROLE COUNSELING AIDE Unavailable + [phone] Encounter Details Date Type Department Care Team (Late st Contact Info) Description 10/02/2020 Transcribed Document [facility] [place] Family Medicine [address] [place] [address] ProviderJerrica MD [address] [place], [place] [address] Social History Tobacco Use Types Packs/Day Years Used Date Smoking Tobacco: Never Assessed Sex and Gender Information Value Date Recorded Sex Assigned at Male 06/20/2024 10:08 AM CDT Legal Sex Male 7:36 AM HOSPICE COMMUNITY LIAISON Gender Identity Male 06/20/2024 10:08 AM CDT Sexual Orientation Not on file documented as of this encounter Miscellaneous Notes * Cerner Conversion Note - Jerrica ProviderMD - 10/02/2020 1:49 PM HOSPICE COMMUNITY LIAISON On Going Discharge Planning Entered On: 10/02/2020 13:51 EST Performed On: 10/02/2020 13:49 EST by RICHIE GLASGOW RN-Metalizer Field OperationLens Mold Setter Progress Note Discharge Arrangements : Patient Post-Acute [...] Meeting Medical Necessity : Yes RICHIE GLASGOW RN-Metalizer Field Operation - 10/02/2020 13:49 EST Narrative Progress Note [...] CM will continue to follow. RICHIE GLASGOW RN-Metalizer Field Operation - 10/01/20 15:17:37 Pt going to OR this afternoon for L2-iliac fusion. Met with pt at bedside to discuss DCP. Pt lives alone. He is retired from the [employer]. His daughter and family live about 1/4 mile away. He denies use of AD/HH/Rehab stays. He had been going to [facility] outpatient PT but with no relief. He states it is crowded there and will likely go to a different outpatient PT place if appropriate. CM will continue to follow. RICHIE GLASGOW RN-Metalizer Field Operation - 09/30/20 11:43:19 RICHIE GLASGOW RN-Metalizer Field Operation - 10/02/2020 13:49 EST documented in this encounter Plan of Treatment Not on file documented as of this encounter Visit Diagnoses Not on filedocumented in this encounter Care Teams Bag Bundler Relationship Specialty Start Date End Date Harris Quinn MD [address] [place] [address] [place] [id number] PCP - General Adolescent Medicine 2/22/24 Jackie Prado, PREPAROLE COUNSELING AIDE [address] [place] [facility] [address], [facility] [address], [place], [facility], [place] Referring Physician Nurse Practitioner 01/12/24 documented as of this encounter
--- OUTSIDE RECORDS SUMMARY | 2025-07-15 11:22 | XMS_ITS | Encounter Summary ---
Author Organization [employer] ([place], [place], [place], [place]) Address [address] [place] [address] Care Team Providers Care Roving Court Reporter Name Role Phone Harris Quinn MD Primary Care Provider + [phone] Jackie Prado BILINGUAL TEACHER Unavailable + [phone] Encounter Details Date Type Department Care Team (Late st Contact Info) Description 09/30/2020 Transcribed Document [facility] [place] [address] [place] [address] ProviderJerrica MD [address] [place], [place] [id number] Social History Tobacco Use Types Packs/Day Years Used Date Smoking Tobacco: Never Assessed Sex and Gender Information Value Date Recorded Sex Assigned at Male 06/20/2024 10:08 AM CDT Legal Sex Male 7:36 AM STOCK SAW OPERATOR Gender Identity Male 06/20/2024 10:08 AM CDT Sexual Orientation Not on file documented as of this encounter Miscellaneous Notes * Cerner Conversion Note - Historical ProviderMD - 09/30/2020 8:20 AM STOCK SAW OPERATOR Spiritual Care Short Form Entered On: 09/30/2020 8:49 EST Performed On: 09/30/2020 8:20 EST by KALYAN VIEIRA General Information, Spiritual Care Spiritual Care Referred by : Mechanical Design Drafter initiated Reason for Visit : Referral/Consult Ministry Provided to : Patient Intervention/Comment/Summary Points : Pre-surgery visit. Provided supportive presence. KALYAN VIEIRA - 09/30/2020 8:48 EST documented in this encounter Plan of Treatment Not on file documented as of this encounter Visit Diagnoses Not on filedocumented in this encounter Care Teams Roving Court Reporter Relationship Specialty Start Date End Date Harris Quinn MD [address] [place] [facility] [address] [place] [address] PCP - General Adolescent Medicine 01/12/24 Jackie Prado, BILINGUAL TEACHER [address] [place] [facility] [address], [place] [address] Referring Physician Nurse Practitioner 01/12/24 documented as of this encounter
--- OUTSIDE RECORDS SUMMARY | 2025-07-15 11:22 | XMS_ITS | Encounter Summary ---
Author Organization [employer] ([place], [place], [place], [place]) Address [address] [place] [address] Care Team Providers Care Warehouse Shipping Clerk Name Role Phone Harris Quinn MD Primary Care Provider + [phone] Jackie Prado PERFECT BINDER OPERATOR Unavailable + [phone] Encounter Details Date Type Department Care Team (Late st Contact Info) Description 09/30/2020 Transcribed Document [facility] [place] [address] [place] [address] ProviderJerrica MD [address] [place], [place] [address] Social History Tobacco Use Types Packs/Day Years Used Date Smoking Tobacco: Never Assessed Sex and Gender Information Value Date Recorded Sex Assigned at Male 06/20/2024 10:08 AM CDT Legal Sex Male 7:36 AM BANDAGE WRAPPING MACHINE OPERATOR Gender Identity Male 06/20/2024 10:08 AM CDT Sexual Orientation Not on file documented as of this encounter Miscellaneous Notes * Cerner Conversion Note - Jerrica ProviderMD - 09/30/2020 2:05 PM BANDAGE WRAPPING MACHINE OPERATOR UM Authorization Entered On: 09/30/2020 14:07 EST Performed On: 09/30/2020 14:05 EST by Lyric Gerard, [employer] Primary Insurance Authorization Authorization and Policy Numbers : Insurance 1 Health Plan: [employer] Policy Number: [id number] Authorization Number: Insurance Primary Name : [employer] Policy Number: [id number] Authorization Status-Primary : Admit approved Reference Number-Primary : [id number] Number of Days Authorized-Primary : 10 Day(s) [...] rick w/ demographics and initial packet attached (AUSTIN KENNEY, RN-Utilization Review 09/29/2020 14:46) Comment 2: EM TO UR TEAM TO UPGRADE TO IP IF PATIENT HAS SURGERY (Rema Dawn, Rn-Utilization Review 09/28/2020 12:09) Lyric Gerard, [employer] D[employer] - 09/30/2020 14:05 EST Electronically signed by [facility], [facility] Conversion Bail Bondsman Cerner at 03/08/2023 11:37 PM CDT documented in this encounter Plan of Treatment Not on file documented as of this encounter Visit Diagnoses Not on filedocumented in this encounter Care Teams Warehouse Shipping Clerk Relationship Specialty Start Date End Date Harris Quinn MD [address] [place] [facility] [address] [place] [address] PCP - General Adolescent Medicine 01/12/24 Jackie Prado, PERFECT BINDER OPERATOR [address], [place] [address] Referring Physician Nurse Practitioner 01/12/24 documented as of this encounter
--- OUTSIDE RECORDS SUMMARY | 2025-07-15 11:22 | XMS_ITS | Encounter Summary ---
Author Organization [employer] ([place], [place], [place], [place]) Address [address] [place] [address] Care Team Providers Care Er Physician Name Role Phone Harris Álvarez MD Primary Care Provider + [phone] Jackie Prado FACTORY HAND Unavailable + [phone] Encounter Details Date Type Department Care Team (Late st Contact Info) Description 10/03/2020 Transcribed Document [facility] [place] Family Medicine [address] [place] [address] ProviderJerrica MD [address] [place] [address] Social History Tobacco Use Types Packs/Day Years Used Date Smoking Tobacco: Never Assessed Sex and Gender Information Value Date Recorded Sex Assigned at Male 06/20/2024 10:08 AM CDT Legal Sex Male 7:36 AM KITCHEN CHEF Gender Identity Male 06/20/2024 10:08 AM CDT Sexual Orientation Not on file documented as of this encounter Miscellaneous Notes * Cerner Conversion Note - Jerrica Clayton MD - 10/03/2020 2:25 PM KITCHEN CHEF [facility] [address] ELIZA GUARDADO :1955 Visit Time:09/29/2020 Your Visit Summary Your Care Team Admitting Physician - HERMINIA KNOWLES MD-INT Attending Physician - HERMINIA KNOWLSE MD-INT Primary Care Physician - HARRIS ÁLVAREZ (REF)MD-SERGIO Referring Physician - KNOWLES, HERMINIA K, MD-INT Your Diagnosis Chronic embolism and thrombosis of unspecified vein, Chronic embolism and thrombosis of unspecified vein Pain What to do next Instructions From Your Care Team Please STOP taking these home medications: 1. Cyril (Acetaminophen -Hydrocodone) 2. Diclofenac Diet after Discharge: [...] 11:30 AM EST Comments Please go to [facility] at 10:30 for x-rays before going to your appointment at 11:30. Where: [address] [place] [address] [address]- [facility] (1) Follow Up with TROY MCCLURE When 10/20/2020 03:30 PM EST Comments Appointment has been made for staple removal Where: [address] [place] [address] [address]- [place] (1) Medications What How Much When Instructions Next Dose acetaminophen-oxyCODONE (Percocet 7.5/ 325 oral tablet) 1 Tablet(s) Oral Every 4 Hours as needed for for pain Printed Prescription apixaban (Eliquis 5 mg oral tablet) See instructions 2 tab oral twice daily for 7 days then 1 tab oral twice daily. [facility] as directed cyclobenzaprine (cyclobenzaprine 10 mg oral tablet) 1 Tablet(s) Oral Three Times A Day as needed for as needed for spasm Refills: 1 Printed Prescription as needed dexAMETHasone (dexAMETHasone 2 mg oral tablet) See instructions 1 tab oral twice daily x 3 days, then 1 tablet daily x 3 days, then stop Pickup at [facility] tonight amLODIPine (amLODIPine 5 mg oral tablet) [...] Oral Every Day in am Pharmacy Information On License Of [facility] [place]: [address] [facility] [address] [place], [place] [id number] [phone] Take your medications faithfully. Do NOT skip [...] tells you to take them. ? Taking tdyn-eqp-vlzjaen medicines, vitamins, herbs, and supplements. ??? You [...] 03/02/2012 Document Revised: 01/03/2020 Document Reviewed: 02/21/2018 Cloud Floor Patient Education ?? 2020 [employer]. dexamethasone (oral) (dex a METH a sone) [...] not expected to produce life threatening symptoms. remote computer terminal operator use of high doses can lead to [...] may report side effects to FDA at 1-130-AGL-2117. What other drugs will affect dexamethasone? Sometimes [...] may affect dexamethasone. This includes prescription and paww-cxt-rqxqkjz medicines, vitamins, and herbal products. Not all [...] to ensure that the information provided by [employer]. ('[employer]') is accurate, up-to-date, and complete, but no guarantee is made to that effect. Drug information contained herein may be time sensitive. [employer] information has been compiled for use by healthcare practitioners and consumers in the [place] and therefore [employer] does not warrant that uses outside of the [place] are appropriate, unless specifically indicated otherwise. [employer] drug information does not endorse drugs, diagnose patients or recommend therapy. [employer] drug information is an informational resource designed [...] effective or appropriate for any given patient. [employer] does not assume any responsibility for any aspect of healthcare administered with the aid of information [employer] provides. The information contained herein is not intended to cover all possible uses, directions, precautions, warnings, drug interactions, allergic reactions, or adverse effects. If you have questions about the drugs you are taking, check with your doctor, nurse or pharmacist. Copyright 7455-2236 [employer]. Version: 7.01. Revision Date: 03/15/2018. apixaban (a PIX a ban) Luis Antonio What is the most important information I should know about apixaban? Apixaban increases your risk of severe or fatal bleeding, especially if you take certain medicines at the same time (including some wkof-ymg-txjobyf medicines). It is very important to tell [...] may report side effects to FDA at 0-363-RBT-7867. What other drugs will affect apixaban? Sometimes it is not safe to use certain medications at the same time. Some drugs can affect your blood levels of other drugs you take, which may increase side effects or make the medications less effective. Many other drugs (including some zrnf-lqf-bpwpxap medicines) can increase your risk of bleeding [...] ?? an NSAID (nonsteroidal anti-inflammatory drug) used remote computer terminal operator. This list is not complete and many other drugs may affect apixaban. This includes prescription and wwgg-qji-gfvgxos medicines, vitamins, and herbal products. Not all [...] to ensure that the information provided by [employer]. ('[employer]') is accurate, up-to-date, and complete, but no guarantee is made to that effect. Drug information contained herein may be time sensitive. [employer] information has been compiled for use by healthcare practitioners and consumers in the [place] and therefore [employer] does not warrant that uses outside of the [place] are appropriate, unless specifically indicated otherwise. [employer]'s drug information does not endorse drugs, diagnose patients or recommend therapy. [employer] drug information is an informational resource designed [...] effective or appropriate for any given patient. [employer] does not assume any responsibility for any aspect of healthcare administered with the aid of information [employer] provides. The information contained herein is not intended to cover all possible uses, directions, precautions, warnings, drug interactions, allergic reactions, or adverse effects. If you have questions about the drugs you are taking, check with your doctor, nurse or pharmacist. Copyright 9037-8407 [employer]. Version: 4.01. Revision Date: 05/11/2019. acetaminophen and [...] may report side effects to FDA at 9-943-SLV-7760. What other drugs will affect acetaminophen and [...] affect acetaminophen and oxycodone, including prescription and ggnb-czr-pvgtqod medicines, vitamins, and herbal products. Not all [...] to ensure that the information provided by [employer]. ('[employer]') is accurate, up-to-date, and complete, but no guarantee is made to that effect. Drug information contained herein may be time sensitive. [employer] information has been compiled for use by healthcare practitioners and consumers in the [place] and therefore [employer] does not warrant that uses outside of the [place] are appropriate, unless specifically indicated otherwise. [employer]'s drug information does not endorse drugs, diagnose patients or recommend therapy. [employer] drug information is an informational resource designed [...] effective or appropriate for any given patient. [facility] does not assume any responsibility for any aspect of healthcare administered with the aid of information [facility] provides. The information contained herein is not intended to cover all possible uses, directions, precautions, warnings, drug interactions, allergic reactions, or adverse effects. If you have questions about the drugs you are taking, check with your doctor, nurse or pharmacist. Copyright 0307-5282 [employer]. Version: .. Revision Date: 12/12/2019. cyclobenzaprine (janel [...] may report side effects to FDA at 4-295-LGT-5389. What other drugs will affect cyclobenzaprine? Using [...] drugs may affect cyclobenzaprine, including prescription and yfqf-ozi-fhvrauv medicines, vitamins, and herbal products. Not all [...] to ensure that the information provided by [employer]. ('Mult[employer]') is accurate, up-to-date, and complete, but no guarantee is made to that effect. Drug information contained herein may be time sensitive. [employer] information has been compiled for use by healthcare practitioners and consumers in the [place] and therefore [employer] does not warrant that uses outside of the [place] are appropriate, unless specifically indicated otherwise. [employer] drug information does not endorse drugs, diagnose patients or recommend therapy. [employer] drug information is an informational resource designed [...] effective or appropriate for any given patient. [employer] does not assume any responsibility for any aspect of healthcare administered with the aid of information [employer] provides. The information contained herein is not intended to cover all possible uses, directions, precautions, warnings, drug interactions, allergic reactions, or adverse effects. If you have questions about the drugs you are taking, check with your doctor, nurse or pharmacist. Copyright 8818-8311 [employer]. Version: 5.01. Revision Date: 08/16/2018. Emergency Awareness [...] Assistance with quitting is available by contacting 5-596-FXVC-NOW. This is a free resource providing counseling, [...] range between ( 0.0 and 7.0 ) [place] #: 0.50 K/uL -- Normal range between ( 0.16 and 1.00 ) Eos #: 0.00 x10(3)/uL -- Normal range between ( 0.00 and 0.80 ) [place] %: 4.9 % -- Normal range between [...] EC Echo Complete: EC Echo Complete Patient Name:ELIZA GUARDADO I have received and understand this information and was given the opportunity to ask questions. Patient/Leather Belt Shaper Name: Patient/Leather Belt Shaper Signature: Relationship to Patient: Clinician/Hospital Leather Belt Shaper Signature: Date: Electronically signed by Bailey, [facility] Conversion Sales Relationship Manager Cerner at 03/08/2023 11:33 PM CDT documented in this encounter Plan of Treatment Not on file documented as of this encounter Visit Diagnoses Not on filedocumented in this encounter Care Teams Er Physician Relationship Specialty Start Date End Date Harris Álvarez MD [address] [place] [facility] [address] [place] [address] PCP - General Adolescent Medicine 01/12/24 Jackie Prado, LEORA [address] [facility] [address], [place] [address] Referring Physician Nurse Practitioner 01/12/24 documented as of this encounter
--- OUTSIDE RECORDS SUMMARY | 2025-07-15 11:22 | XMS_ITS | Encounter Summary ---
Author Organization [employer] ([place], [place], [place], [place]) Address [address] [place] [address] Care Team Providers Care Clinical Research Manager Name Role Phone Harirs Quinn MD Primary Care Provider + [phone] Jackie Prado SUPERVISOR NUT PROCESSING Unavailable + [phone] Encounter Details Date Type Department Care Team (Late st Contact Info) Description 09/30/2020 Transcribed Document [facility] [address] [place] [address] ProviderJerrica MD [address] [place] [address] Social History Tobacco Use Types Packs/Day Years Used Date Smoking Tobacco: Never Assessed Sex and Gender Information Value Date Recorded Sex Assigned at Male 06/20/2024 10:08 AM CDT Legal Sex Male 7:36 AM MENTAL HEALTH NURSE Gender Identity Male 06/20/2024 10:08 AM CDT Sexual Orientation Not on file documented as of this encounter Miscellaneous Notes * Cerner Conversion Note - Jerrica ProviderMD - 09/30/2020 5:03 PM MENTAL HEALTH NURSE [facility] Main OR PACU Summary Primary Physician: TROY MCCLURE MD-SNU Finalized Date/Time: 09/30/20 21:20:47 Pt. Name: ELIZA GUARDADO./Sex: 1955 Male Med Rec #: [id number] Physician: HERMINIA KNOWLES MD-INT Financial #: [id number] Pt. Type: I Room/Bed: 650/1 Admit/Disch: 11/09/20 14:34:00 - Institution: [facility] Main OR PACU I Case Times Entry 1 In PACU I 09/30/20 20:08:00 Ready for PACU 09/30/20 21:00:00 Discharge Discharge from PACU 09/30/20 21:00:00 I Last Modified By: STAR DAVILA 09/30/20 21:20:02 Finalized By: STAR DAVILA Document Signatures Signed By: STAR DAVILA 09/30/20 21:20 Electronically signed by [facility] Conversion Open Cut Examiner Cerner at 03/08/2023 11:36 PM CDT documented in this encounter Plan of Treatment Not on file documented as of this encounter Visit Diagnoses Not on filedocumented in this encounter Care Teams Clinical Research Manager Relationship Specialty Start Date End Date Hraris Quinn MD [address] [place] [facility] [address] [place] [address] PCP - General Adolescent Medicine 01/12/24 Jackie Prado, SUPERVISOR NUT PROCESSING [address] [facility] [address], [place] [address] Referring Physician Nurse Practitioner 01/12/24 documented as of this encounter
--- OUTSIDE RECORDS SUMMARY | 2025-07-15 11:22 | XMS_ITS | Encounter Summary ---
Author Organization [employer] ([place], [place], [place], [place]) Address [address] [place] [address] Care Team Providers Care Tax Investigator Name Role Phone Harris Quinn MD Primary Care Provider + [phone] Jackie Prado UNIVERSITY LIBRARIAN Unavailable + [phone] Encounter Details Date Type Department Care Team (Late st Contact Info) Description 10/03/2020 Transcribed Document [facility] Radiology [address] [place] [id number] Stu Liang MD [address] [place] [address] [address] [place] [address] Social History Tobacco Use Types Packs/Day Years Used Date Smoking Tobacco: Never Assessed Sex and Gender Information Value Date Recorded Sex Assigned at Male 06/20/2024 10:08 AM CDT Legal Sex Male 7:36 AM [employer] SALESPERSON Gender Identity Male 06/20/2024 10:08 AM CDT [...] nerve root. There is contact of the [id number] root in the lateral recess.L3-L4: There is [...] stenosis. This contacts and displaces the right S8cfgwy root. There is mild right foraminal narrowing. [...] mg, Oral, Daily Lovenox: 70 mg, SubCutaneous, [id number] MiraLax: 17 Gram, Oral, Daily, PRN: Constipation [...] Mon HR 71 (OCT 03) 60 (OCT 03:) 74 (OCT 03) Resp Rate 16 (OCT 03) 16 (OCT 02 20:41) 16 (OCT 02:41) SBP H 155 (OCT 03) 124 (OCT 03:) H 155 (OCT 03) DBP L 56 (OCT 03) L 46 (OCT 03) L 56 (OCT 02:) MAP 81 (OCT 03) 66 (OCT 03:) 81 (OCT 03:) SpO2 97 (OCT 03) 94 (OCT 03:) 97 (OCT 03:) General: Alert and oriented, No acute distress. [...] on filedocumented in this encounter Care Teams Tax Investigator Relationship Specialty Start Date End Date Harris Quinn MD [address] [place] [address] [place] [address] PCP - General Adolescent Medicine 01/12/24 Jackie Prado, UNIVERSITY LIBRARIAN [address], [place] [address] Referring Physician Nurse Practitioner 01/12/24 documented as of this encounter
--- OUTSIDE RECORDS SUMMARY | 2025-07-15 11:22 | XMS_ITS | Encounter Summary ---
Author Organization [employer] ([place], [place], [place], [place]) Address [address] [place] [address] Care Team Providers Care Superior Court Judge Name Role Phone Harris Quinn MD Primary Care Provider + [phone] Jackie Prado GREEN PLUMBER Unavailable + [phone] Encounter Details Date Type Department Care Team (Late st Contact Info) Description 09/30/2020 Transcribed Document [facility] [place] [address] [place] [address] ProviderJerrica MD [address] [place], [place] [id number] Social History Tobacco Use Types Packs/Day Years Used Date Smoking Tobacco: Never Assessed Sex and Gender Information Value Date Recorded Sex Assigned at Male 06/20/2024 10:08 AM CDT Legal Sex Male 7:36 AM MEDICAL EDUCATOR Gender Identity Male 06/20/2024 10:08 AM CDT Sexual Orientation Not on file documented as of this encounter Miscellaneous Notes * [employer] Conversion Note - Jerrica ProviderMD - 09/30/2020 11:39 AM MEDICAL EDUCATOR On Going Discharge Planning Entered On: 09/30/2020 11:43 EST Performed On: 09/30/2020 11:39 EST by RICHIE GLASGOW RN-Manager Of Disaster RecoveryTechnical Report Writer Progress Note Discharge Arrangements : Patient Post-Acute [...] Meeting Medical Necessity : Yes RICHIE GLASGOW, RN-Manager Of Disaster Recovery - 09/30/2020 11:39 EST Narrative Progress Note Narrative Progress Note : Pt going to OR this afternoon for L2-iliac fusion. Met with pt at bedside to discuss DCP. Pt lives alone. He is retired from the [employer]. His daughter and family live about 1/4 mile away. He denies use of AD/HH/Rehab stays. He had been going to [facility] outpatient PT but with no relief. He states it is crowded there and will likely go to a different outpatient PT place if appropriate. CM will continue to follow. RICHIE GLASGOW RN-Manager Of Disaster Recovery - 09/30/2020 11:39 EST Electronically signed by Bailey [facility] Conversion Admission Discharge Rn Cerner at 03/08/2023 11:45 PM CDT documented in this encounter Plan of Treatment Not on file documented as of this encounter Visit Diagnoses Not on filedocumented in this encounter Care Teams Superior Court Judge Relationship Specialty Start Date End Date Harris Quinn MD [address] [facility] [address] [place] [address] PCP - General Adolescent Medicine 01/12/24 Jackie Prado, GREEN PLUMBER [address] [facility] [address] [place] [address] Referring Physician Nurse Practitioner 01/12/24 documented as of this encounter
--- OUTSIDE RECORDS SUMMARY | 2025-07-15 11:22 | XMS_ITS | Encounter Summary ---
Author Organization [employer] ([place], [place], [place], [place]) Address [address] [place] [address] Care Team Providers Care Rug Setter Velvet Name Role Phone Harris Quinn MD Primary Care Provider + [phone] Jackie Prado BONE CHAR KILN TENDER Unavailable + [phone] Encounter Details Date Type Department Care Team (Late st Contact Info) Description 09/30/2020 Transcribed Document [facility] Family Medicine [address] [place] [address] ProviderJerrica MD [address], [place] [address] Social History Tobacco Use Types Packs/Day Years Used Date Smoking Tobacco: Never Assessed Sex and Gender Information Value Date Recorded Sex Assigned at Male 06/20/2024 10:08 AM CDT Legal Sex Male 7:36 AM NEON SIGN ERECTOR Gender Identity Male 06/20/2024 10:08 AM CDT Sexual Orientation Not on file documented as of this encounter Miscellaneous Notes * Cerner Conversion Note - Jerrica ProviderMD - 09/30/2020 5:03 PM NEON SIGN ERECTOR [facility] Main OR IntraOp Summary Primary Physician: TROY MCCLURE MD-U Finalized Date/Time: 10/02/20 07:54:38 Pt. Name: ELIZA LAMBERT./Sex: 1955 Male Med Rec #: [id number] Physician: HERMINIA KNOWLES MD-INT Financial #: [id number] Pt. Type: I Room/Bed: 650/1 Admit/Disch: 11/09/20 14:34:00 - Institution: [facility] IntraOp Case Attendance Entry 1 Entry 2 Entry 3 Case Attendee TROY MCCLURE BARRETT, LAURIE, MD-CHRISTIAN NIEVES APRN MD-LUISA Role Performed Surgeon/Proceduralist, Anesthesiologist of MANUFACTURING TECH/Nurse Blood Bank Manager First Record Time In 09/30/20 16:16:00 09/30/20 16:16:00 09/30/20 16:16:00 Time Out 09/30/20 20:05:00 09/30/20 20:05:00 09/30/20 17:44:00 Procedure Lumbar Fusion Posterior Lumbar Fusion Posterior Lumbar Fusion Posterior 3 Level 3 Level 3 Level Other Attendee Superficial Wound Closed By: Last Modified By: Vanesa Webster, Vanesa Pugh Rn Parker, Gwendolyn, Rn 09/30/20 20:08:20 09/30/20 20:08:20 09/30/20 20:08:20 Entry 4 Entry 5 Entry 6 Case Attendee Vanesa Webster Rn LONG, PAULA R., [facility] RN Role Performed Drill Press Operator Helper, First Scrub, First Drill Press Operator Helper, Second Time In 09/30/20 16:16:00 09/30/20 16:16:00 [...] Aysha Morel Hensley, Karen, SCHNELLE, JENNIFER, ALEC Medical Staff Services Manager Diagnostic Medical Staff Credentialing Coordinator Role Performed Financial Institution Branch Manager Financial Institution Branch Manager Scrub, Second Time In 09/30/20 16:48:00 09/30/20 [...] Sushma Maldonado, MEKA CRAFT, SC ARI MCCANN MD-RADHA TECH Role Performed Drill Press Operator Helper, Second Scrub, First Anesthesiologist Time In 09/30/20 17:20:00 09/30/20 18:30:00 09/30/20 17:44:00 Time Out 09/30/20 17:35:00 09/30/20 20:05:00 09/30/20 20:05:00 Procedure Lumbar Fusion Posterior Lumbar Fusion Posterior Lumbar Fusion Posterior 3 Level 3 Level 3 Level Other Attendee RELIEF TRAVELER Superficial Wound Closed By: Last Modified By: Vanesa Webster Rn Parker, Gwendolyn, Rn Parker, Gwendolyn, Rn 09/30/20 20:08:20 09/30/20 20:08:20 09/30/20 20:08:20 [facility] IntraOp Case Attendance Audit 09/30/20 20:08:20 Electric Motor Assembler: VALERY Modifier: [email or web address] 1 <+> Time Out [...] Lumbar Fusion Posterior 3 Level 09/30/20 19:48:33 Electric Motor Assembler: DENNISNPARKER Modifier: [email or web address] 3 <+> Time Out 3 <*> Procedure Lumbar Fusion Posterior 3 Level <+> 12 Case Attendee <+> 12 Role Performed <+> 12 Time In <+> 12 Procedure 09/30/20 19:02:23 Electric Motor Assembler: DENNISNPARKER Modifier: [email or web address] 10 <+> Time Out 10 <*> Procedure Lumbar Fusion Posterior 3 Level 09/30/20 18:52:49 Electric Motor Assembler: CHAVEZOLYNPARKER Modifier: [email or web address] 5 <+> Time Out 5 <*> Procedure Lumbar Fusion Posterior 3 Level <+> 11 Case Attendee <+> 11 Role Performed <+> 11 Time In <+> 11 Procedure <+> 11 Other Attendee 09/30/20 17:52:28 Electric Motor Assembler: DENNISNPARKER Modifier: [email or web address] <+> 1 Procedure 2 <*> [...] Lumbar Fusion Posterior 3 Level 09/30/20 17:22:03 Electric Motor Assembler: DENNISNPARKER Modifier: [email or web address] 2 <*> Procedure Lumbar Fusion Posterior 3 [...] Procedure <+> 10 Other Attendee 09/30/20 17:11:51 Electric Motor Assembler: CHAVEZOLYNPARKER Modifier: [email or web address] 2 <*> Procedure Lumbar Fusion Posterior 3 [...] Role Performed <+> 9 Procedure 09/30/20 17:08:40 Electric Motor Assembler: VALERY Modifier: VALERY 2 <+> Time In [...] <+> 8 Role Performed <+> 8 Procedure [facility] IntraOp Case Times Entry 1 Patient In Room Time 09/30/20 16:16:00 Out Room Time 09/30/20 20:05:00 Anesthesia Start Time 09/30/20 16:16:00 Stop Time 09/30/20 20:05:00 Surgery / Procedure Times Start Time 09/30/20 17:03:00 Stop Time 09/30/20 19:53:00 Last Modified By: Vanesa Webster Rn 09/30/20 20:08:18 [facility] IntraOp Case Times Audit 09/30/20 20:08:18 Electric Motor Assembler: VALERY Modifier: VALERY <+> 1 Out Room Time <+> 1 Stop Time <+> 1 Stop Time 09/30/20 17:10:31 Electric Motor Assembler: VALERY Modifier: VALERY <+> 1 Start Time [facility] IntraOp Cautery Entry 1 ESU Identification Cautery Type Monopolar ESU ID Number [id number] ID Type Hospital Number Cautery Settings Cut Setting 8 Coag Setting 50 ESU Grounding Pad Ground Pad Type Adult Grounding Pad Site Right thigh Grounding Pad Vanesa Webster Rn Applied By Grounding Pad Site Warm, dry and intact Skin Condition Before Cautery Grounding Pad Site Warm, dry and intact Skin Condition After Cautery Last Modified By: Vanesa Webster Rn 09/30/20 17:09:48 [facility] IntraOp Communication Entry 1 Communication To Family/Significant other Comment START Communication By Vanesa Webster Rn Date and Time 09/30/20 17:03:00 Last Modified By: Vanesa Webster Rn 09/30/20 17:10:13 [facility] IntraOp Counts Verification Entry 1 Procedure Lumbar Fusion Posterior 3 Level Count Info Count Type Sponge, Sharps, Miscellaneous Counts Verification Baseline/pre-procedure Sequence Counts Performed By Count Performed By PILO ALEX[address]ER [address] (Scrub) Count Performed By Vanesa Webster Rn (RN) Last Modified By: Vanesa Webster Rn 09/30/20 16:23:20 [facility] IntraOp Counts Final Entry 1 Procedure Lumbar Fusion Posterior 3 Level Final Count Info Count Type Sponge, Sharps, Miscellaneous Counts Verification Skin Closure/end of Sequence procedure Count Results Correct, surgeon notified Counts Performed By Count Performed By MEKA ALY SC RUB (Scrub) TECH Count Performed By Vanesa Webster Rn (RN) Last Modified By: Vanesa Webster Rn 09/30/20 19:32:13 [facility] IntraOp Counts Final Audit 09/30/20 19:32:13 Electric Motor Assembler: DENNISNPARKER Modifier: [email or web address] 1 <*> Procedure Lumbar Fusion Posterior 3 Level 1 <+> Count Performed By (Scrub) 1 <+> Count Performed By (RN) [facility] IntraOp Departure from OR Entry 1 Integumentary Assessment Integumentary WDL with patient Assessment WDL specific variances Patient's Normal OPSITE Integumentary Variance(s) Transfer/Handoff Transfer to PACU Phase I Handoff Method Bedside/Face to face, Phone call Post-op Transport Stretcher/Khalif Via Patient Transport Vanesa Webster Rn, Accompanied by CHRISTIAN OLIVER APRN Last Modified By: Vanesa Webster Rn 09/30/20 17:12:37 [facility] IntraOp Drains and Tubes Entry 1 Device Type Angelo Altman round drain Size 10 Drain/Tube Activity Inserted Drain/Tube Suction Bulb Drain/Tube Drainage Sanguineous Tube Dressing Dry, Intact Condition Surgical Drains and Continuous [place] Tubes Irrigation Last Modified By: Vanesa Webster Rn 09/30/20 19:50:00 [facility] IntraOp Dressing and Packing Entry 1 Type Dressing Location OPSITE Applied By TROY MCCLURE MD-[facility] Last Modified By: Vanesa Webster Rn 09/30/20 17:13:17 [facility] IntraOp Fire Risk Assessment Entry 1 Fire [...] Modified By: Vanesa Webster Rn 09/30/20 17:13:53 [facility] IntraOp General Case Access Liaison 1 Case Information OR OR 10 [facility] Case Level 1 Room Verified Yes Wound Class I - Clean Specialty SN Neurosurgery Anesthesia Type General ASA Class 3 Diagnosis Preop Diagnosis CHRONIC EMBOLISM AND THROMBOSIS OUNSPECIFIED VEIN Postop Same As Preop No Postop Diagnosis CHRONIC EMBOLISM AND THROMBOSIS OUNSPECIFIED VEIN SEE SURGEON POST OP NOTES Last Modified By: Vanesa Webster Rn 09/30/20 17:17:05 [facility] IntraOp General Case Data Audit 09/30/20 17:17:05 Electric Motor Assembler: [email or web address] Modifier: [email or web address] <+> 1 Postop Same As Preop <+> 1 Postop Diagnosis 09/30/20 17:16:40 Electric Motor Assembler: [email or web address] Modifier: [email or web address] 1 <*> Preop Diagnosis CHRONIC EMBOLISM AND THROMBOSIS OUNSPECIFIED VEIN 09/30/20 17:16:21 Electric Motor Assembler: YANAENDOLYNPARKER Modifier: [email or web address] <+> 1 Preop Diagnosis [facility] IntraOp Implant Log Entry 1 Entry 2 Entry 3 Type Implant (Synthetic) Implant (Synthetic) Implant (Synthetic) Implant Log Implant Type Other Other Other Tissue Implant Type Implant SCR SPNE CHRISTIAN FIX SCR SPNE CHRISTIAN FIX SCR SPNE CHRISTIAN FIX Identification [id number] Description Implant Quantity 2 4 2 Implant Site OPSITE OPSITE OPSITE Implant Identification Model Number Implant Identification Serial Number Implant Identification Lot Number Implant J&J:Depuy:Depuy Spine J&J:Depuy:Depuy Spine J&J:Depuy:Depuy Spine Identification Registered Nurse Bone Marrow Transplant Name: Implant [id number] Identification Catalog Number Implant Size 7X55MM 6X55MM 6X50MM Implant Has an Expiration Date Implant Expiration Date Wasted Radioactive Material Time Implanted Tissue Implant Continue for Tissue Implant Documentation Tissue Identification Number Graft Prep Per Registered Nurse Bone Marrow Transplant Instructions: Tissue Preparation Method: Reconstitution Solution: Reconstitution Solution Lot Number Reconstitution Solution Expiration Date: Thawing Solution Thawing Solution Lot Number Thawing Solution Expiration Date Preparation Materials, Other Preparation Materials, Other Lot Number Preparation Materials, Other Expiration Date Tissue Prepared/Processed By Registered Nurse Bone Marrow Transplant Paperwork Completed Implant Type Comment Last Modified By: Vanesa Webster Rn Parker, Gwendolyn, Rn Parker, Gwendolyn, Rn 09/30/20 19:43:17 09/30/20 19:43:17 09/30/20 19:43:17 Entry 4 Entry 5 Entry 6 Type Implant (Synthetic) Implant (Synthetic) Implant (Synthetic) Implant Log Implant Type Other Other Other Tissue Implant Type Implant SCR SPNE CHRISTIAN FIX SCR ILIAM [id number] SCR ILIAM 8MM X 90MM Identification [id number] Description Implant Quantity 2 1 1 Implant Site OPSITE OPSITE OPSITE Implant Identification Model Number Implant Identification Serial Number Implant Identification Lot Number Implant J&J:Depuy:Depuy Spine J&J:Depuy:Depuy Spine J&J:Depuy:Depuy Spine Identification Registered Nurse Bone Marrow Transplant Name: Implant -[id number] Identification Catalog Number Implant Size 7X50MM 8X90 Implant Has an Expiration Date Implant Expiration Date Wasted Radioactive Material Time Implanted Tissue Implant Continue for Tissue Implant Documentation Tissue Identification Number Graft Prep Per Registered Nurse Bone Marrow Transplant Instructions: Tissue Preparation Method: Reconstitution Solution: Reconstitution Solution Lot Number Reconstitution Solution Expiration Date: Thawing Solution Thawing Solution Lot Number Thawing Solution Expiration Date Preparation Materials, Other Preparation Materials, Other Lot Number Preparation Materials, Other Expiration Date Tissue Prepared/Processed By Registered Nurse Bone Marrow Transplant Paperwork Completed Implant Type Comment Last Modified By: Vanesa Webster Rn Parker, Gwendolyn, Rn Parker, Gwendolyn, Rn 09/30/20 19:43:17 09/30/20 19:43:17 09/30/20 19:43:17 Entry 7 Entry 8 Entry 9 Type Implant (Synthetic) Implant (Synthetic) Implant (Synthetic) Implant Log Implant Type Other Other Other Tissue Implant Type Implant MIS PARAG PLY SCRW SET CONCORDE BUL BRANDEN CONCORDE BUL BRANDEN [id number] Identification [id number] Description Implant Quantity 12 1 1 Implant Site OPSITE OPSITE OPSITE Implant Identification Model Number Implant Identification Serial Number Implant Identification Lot Number Implant J&J:Depuy:Depuy Spine J&J:Depuy:Depuy Spine J&J:Depuy:Depuy Spine Identification Registered Nurse Bone Marrow Transplant Name: Implant [id number] Identification Catalog Number Implant Size [id number] 9 X27 Implant Has an Expiration Date Implant Expiration Date Wasted Radioactive Material Time Implanted Tissue Implant Continue for Tissue Implant Documentation Tissue Identification Number Graft Prep Per Registered Nurse Bone Marrow Transplant Instructions: Tissue Preparation Method: Reconstitution Solution: Reconstitution Solution Lot Number Reconstitution Solution Expiration Date: Thawing Solution Thawing Solution Lot Number Thawing Solution Expiration Date Preparation Materials, Other Preparation Materials, Other Lot Number Preparation Materials, Other Expiration Date Tissue Prepared/Processed By Registered Nurse Bone Marrow Transplant Paperwork Completed Implant Type Comment Last Modified By: Vanesa Webster Rn Parker, Gwendolyn, Rn Parker, Gwendolyn, Rn 09/30/20 19:43:17 09/30/20 19:43:17 09/30/20 19:43:17 Entry 10 Type Implant (Synthetic) Implant Log Implant Type Other Tissue Implant Type Implant MOOSE SPINAL Identification [id number] Description Implant Quantity 2 Implant Site OPSITE Implant Identification Model Number Implant Identification Serial Number Implant Identification Lot Number Implant J&J:Depuy:Depuy Spine Identification Registered Nurse Bone Marrow Transplant Name: Implant [id number] Identification Catalog Number Implant Size 135MM Implant Has an Expiration Date Implant Expiration Date Wasted Radioactive Material Time Implanted Tissue Implant Continue for Tissue Implant Documentation Tissue Identification Number Graft Prep Per Registered Nurse Bone Marrow Transplant Instructions: Tissue Preparation Method: Reconstitution Solution: Reconstitution Solution Lot Number Reconstitution Solution Expiration Date: Thawing Solution Thawing Solution Lot Number Thawing Solution Expiration Date Preparation Materials, Other Preparation Materials, Other Lot Number Preparation Materials, Other Expiration Date Tissue Prepared/Processed By Registered Nurse Bone Marrow Transplant Paperwork Completed Implant Type Comment Last Modified By: Vanesa Webster Rn 09/30/20 19:43:17 [facility] IntraOp Implant Log Audit 09/30/20 19:43:17 Electric Motor Assembler: FIORDALIZAVALENTINE Modifier: VALERY 1 <*> Implant Identification Description SCR SPNE CHRISTIAN FIX [id number] <*> Implant Quantity 1 <+> 2 Implant Identification Description <+> 2 Implant Identification Registered Nurse Bone Marrow Transplant Name: <+> 2 Implant Size <+> 2 Implant Site <+> 2 Implant Quantity <+> 2 Implant Identification Catalog Number <+> 2 Implant Type <+> 2 Type <+> 3 Implant Identification Description <+> 3 Implant Identification Registered Nurse Bone Marrow Transplant Name: <+> 3 Implant Size <+> 3 Implant Site <+> 3 Implant Quantity <+> 3 Implant Identification Catalog Number <+> 3 Implant Type <+> 3 Type <+> 4 Implant Identification Description <+> 4 Implant Identification Registered Nurse Bone Marrow Transplant Name: <+> 4 Implant Size <+> 4 Implant Site <+> 4 Implant Quantity <+> 4 Implant Identification Catalog Number <+> 4 Implant Type <+> 4 Type <+> 5 Implant Identification Description <+> 5 Implant Identification Registered Nurse Bone Marrow Transplant Name: <+> 5 Implant Site <+> 5 Implant Quantity <+> 5 Implant Identification Catalog Number <+> 5 Implant Type <+> 5 Type <+> 6 Implant Identification Description <+> 6 Implant Identification Registered Nurse Bone Marrow Transplant Name: <+> 6 Implant Size <+> 6 Implant Site <+> 6 Implant Quantity <+> 6 Implant Identification Catalog Number <+> 6 Implant Type <+> 6 Type <+> 7 Implant Identification Description <+> 7 Implant Identification Registered Nurse Bone Marrow Transplant Name: <+> 7 Implant Site <+> 7 Implant Quantity <+> 7 Implant Identification Catalog Number <+> 7 Implant Type <+> 7 Type <+> 8 Implant Identification Description <+> 8 Implant Identification Registered Nurse Bone Marrow Transplant Name: <+> 8 Implant Size <+> 8 Implant Site <+> 8 Implant Quantity <+> 8 Implant Identification Catalog Number <+> 8 Implant Type <+> 8 Type <+> 9 Implant Identification Description <+> 9 Implant Identification Registered Nurse Bone Marrow Transplant Name: <+> 9 Implant Size <+> 9 Implant Site <+> 9 Implant Quantity <+> 9 Implant Identification Catalog Number <+> 9 Implant Type <+> 9 Type <+> 10 Implant Identification Description <+> 10 Implant Identification Registered Nurse Bone Marrow Transplant Name: <+> 10 Implant Size <+> 10 Implant Site <+> 10 Implant Quantity <+> 10 Implant Identification Catalog Number <+> 10 Implant Type <+> 10 Type [facility] IntraOp Intraoperative Assessment Entry 1 Handoff Method Bedside/Face to face, Online nursing summary Valid History / Yes Physical in Chart Preoperative Yes Checklist Reviewed/Evaluated Allergies Reviewed Yes Patient is Latex No Sensitive Skin Assessment No Verified Present Upon IVs Arrival to OR Last Modified By: Vanesa Webster Rn 09/30/20 17:17:31 [facility] IntraOp Intraoperative Equipment Entry 1 Type Monitoring Equipment Equipment Garrett Suction System ID Number [id number] Setting HIGH Intraop Monitoring Electrocardiogram Five lead placement (ECG) Electrode Placement Blood Pressure Non-Invasive BP Device Source Blood Pressure Arm, left upper Location Pulse Oximeter Hand, right Probe Site Antiembolic Devices Scopes Photo/Video Documentation Last Modified By: Vanesa Webster Rn 09/30/20 17:18:41 [facility] IntraOp Medication Admin Entry 1 Entry 2 Entry 3 Medication/Irrigant Marcaine 0.25% 30ml lidocaine 1% w/ thrombin 5000units vial - [id number] epinephrine 1:100,000 topical powder - 30ml vial - [id number] Combo Med List Time Administered Route of LOCAL LOCAL LOCAL Administration Dose Dose 30 20 5000 Unit of Measure ml ml units Volume Administered By TROY MCCLURE TUTT, MATTHEW PAIGE, TUTT, MATTHEW PAIGE, MD-SNU MD-SNU -SNU Procedure Irrigation Irrigant Volume In Irrigant Volume Out Last Modified By: Vanesa Webster Rn Parker, Gwendolyn, Rn Parker, Gwendolyn, Rn 09/30/20 17:49:37 09/30/20 17:49:37 09/30/20 17:49:37 Entry 4 Entry 5 Entry 6 Medication/Irrigant Bacitracin 50,00units Neosporin 15Gm ointment vancomycin 1Gm - powder vial - [id number] Combo Med List Time Administered Route of LOCAL TOPICAL Administration Dose Dose 79529 1 Unit of Measure units pkt gram Volume Administered By TROY MCCLURE TUTT, MATTHEW PAIGE, TUTT, MATTHEW PAIGE, MD-SNU MD-SNU MD-SNU Procedure Irrigation Irrigant Volume In Irrigant Volume Out Last Modified By: Vanesa Webster Rn Parker, Gwendolyn, Rn Parker, Gwendolyn, Rn 09/30/20 17:49:37 09/30/20 18:04:30 09/30/20 19:31:54 [facility] IntraOp Medication Admin Audit 09/30/20 19:31:54 Electric Motor Assembler: [email or web address] Modifier: [email or web address] <+> 6 Medication/Irrigant <+> 6 Administered By <+> 6 Dose <+> 6 Unit of Measure 09/30/20 18:04:30 Electric Motor Assembler: [email or web address] Modifier: [email or web address] <+> 5 Medication/Irrigant <+> 5 Route of Administration <+> 5 Administered By <+> 5 Unit of Measure [facility] IntraOp Patient Positioning Entry 1 Procedure Lumbar [...] Modified By: Vanesa Webster Rn 09/30/20 17:51:42 [facility] IntraOp Sign In Entry 1 Patient, Site, [...] Modified By: Vanesa Webster Rn 09/30/20 17:54:42 [facility] IntraOp Sign Out Entry 1 RN Confirmation [...] Modified By: Vanesa Webster Rn 09/30/20 20:08:31 [facility] IntraOp Sign Out Audit 09/30/20 20:08:31 Electric Motor Assembler: VALERY Modifier: VALERY <+> 1 RN Sign Out Signature Date/Time [facility] IntraOp Skin Prep Entry 1 Procedure Lumbar Fusion Posterior 3 Level Prescribed Yes Pre-Surgical Prep Completed Prep Area OPSITE Intraop Prep Prep Agents DuraPrep Prep by Vanesa Webster Rn Hair Removal Last Modified By: Vanesa Webster Rn 09/30/20 17:53:59 [facility] IntraOp Surgical Procedures Entry 1 Procedure Lumbar Fusion Posterior 3 Level Additional L2 - ILIAC FUSION USING Procedure AIRO Description Primary Procedure Yes Primary Surgeon TROY MCCLURE MD-SNU Start 09/30/20 17:03:00 Stop 09/30/20 19:53:00 Anesthesia Type General Specialty SN Neurosurgery Wound Class I - Clean Last Modified By: Vanesa Webster Rn 09/30/20 20:08:23 [facility] IntraOp Surgical Procedures Audit 09/30/20 20:08:23 Electric Motor Assembler: VALERY Modifier: VALERY <+> 1 Stop [facility] IntraOp Temp Regulation Devices Entry 1 Temp Regulation Temperature Forced Air Warming Regulation Device device Temperature Upper body Regulation Site Temperature Device 43 C Setting Temperature CHRISTIAN OLIVER APRN Regulation Device Applied by Last Modified By: Vanesa Webster Rn 09/30/20 17:53:02 [facility] IntraOP Time Out Entry 1 Procedure to [...] Unfinalizing Freetext Reason for Unfinalizing 10/02/20 07:52 WATTSDR Correct Billing documented in this encounter Plan of Treatment Not on file documented as of this encounter Visit Diagnoses Not on filedocumented in this encounter Care Teams Rug Setter Velvet Relationship Specialty Start Date End Date Harris Quinn MD [address] [place] [address] [place] [address] PCP - General Adolescent Medicine 01/12/24 Jackie Prado APRN [address], [place] [address] Referring Physician Nurse Practitioner 01/12/24 documented as of this encounter
--- OUTSIDE RECORDS SUMMARY | 2025-07-15 11:22 | XMS_ITS | Encounter Summary ---
Author Organization [employer] ([place], [place], [place], [place]) Address [address] [place] [address] Care Team Providers Care Message And Delivery Service Pricer Name Role Phone Harris Quinn MD Primary Care Provider + [phone] Jackie Prado BI LEAD Unavailable + [phone] Encounter Details Date Type Department Care Team (Late st Contact Info) Description 10/03/2020 Transcribed Document [facility] Neurology - [address] [id number] John Cerda MD [address] [place] [address] [address] [place] [address] Social History Tobacco Use Types Packs/Day Years Used Date Smoking Tobacco: Never Assessed Sex and Gender Information Value Date Recorded Sex Assigned at Male 06/20/2024 10:08 AM CDT 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 [address], [place] [address] Referring Physician Nurse Practitioner 01/12/24 documented as of this encounter
--- OUTSIDE RECORDS SUMMARY | 2025-07-15 11:22 | XMS_ITS | Referral Summary ---
Author Organization [employer] ([place], [place], [place], [place]) Address [address] [place] [address] Care Team Providers Care Powerhouse Tender Name Role Phone Harris Quinn MD Primary Care Provider + [phone] Jackie Prdao ACADEMIC COMPUTING DIRECTOR Unavailable + [phone] Allergies No known active allergies Medications * [...] mg total) by mouth daily. Active omega 2-rmw-pcj-fish oil capsule Take 1 capsule (1,000 mg [...] With b12. 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
--- OUTSIDE RECORDS SUMMARY | 2025-07-15 11:22 | XMS_ITS | Encounter Summary ---
Author Organization [employer] ([place], [place], [place], [place]) Address [address] [place] [address] Care Team Providers Care Lead Cargoman Name Role Phone Harris Quinn MD Primary Care Provider + [phone] Jackie Prado GRAPHICS EDIT TECHNICIAN Unavailable + [phone] Encounter Details Date Type Department Care Team (Late st Contact Info) Description 09/30/2020 Transcribed Document [facility] [place] [address] [place] [address] ProviderJerrica MD [address] [place], [place] [id number] Social History Tobacco Use Types Packs/Day Years Used Date Smoking Tobacco: Never Assessed Sex and Gender Information Value Date Recorded Sex Assigned at Male 06/20/2024 10:08 AM CDT 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 Gender Identity Male 06/20/2024 10:08 AM CDT Sexual Orientation Not on file documented as of this encounter Miscellaneous Notes * Cerner Conversion Note - Jerrica ProviderMD - 09/30/2020 10:00 PM PAINT BRUSH MAKER Pain Assessment Entered On: 10/01/2020 2:35 EST Performed On: 09/30/2020 23:06 EST by Armando Armenta Rn Intervention Information: acetaminophen Performed by Armando Armenta Rn on 09/30/2020 22:06:00 EST acetaminophen,650mg Oral Pain Assessment Pain Scale Goal : 2 Armando Armenta Rn - 10/01/2020 2:35 EST Electronically signed by Bailey [facility] Conversion Scouring Train Operator Chief Cerner at 03/08/2023 11:26 PM CDT documented in this encounter Plan of Treatment Not on file documented as of this encounter Visit Diagnoses Not on filedocumented in this encounter Care Teams Lead Cargoman Relationship Specialty Start Date End Date Harris Quinn MD [address] [place] [facility] [address] [place] [address] PCP - General Adolescent Medicine 01/12/24 Jackie Prado, GRAPHICS EDIT TECHNICIAN [address] [place] [facility] [address], [place] [address] Referring Physician Nurse Practitioner 01/12/24 documented as of this encounter
--- OUTSIDE RECORDS SUMMARY | 2025-07-15 11:22 | XMS_ITS | Encounter Summary ---
Author Organization [employer] ([place], [place], [place], [place]) Address [address] [place] [address] Care Team Providers Care Medical Surgical Tech Name Role Phone Harris Quinn MD Primary Care Provider + [phone] Jackie Prado LENS GRINDING MACHINE OPERATOR Unavailable + [phone] Encounter Details Date Type Department Care Team (Late st Contact Info) Description 10/02/2020 Transcribed Document [facility] - [facility] [address] [id number] John Cerda MD [address] [place] [address] [address] [place] [address] Social History Tobacco Use Types Packs/Day Years Used Date Smoking Tobacco: Never Assessed Sex and Gender Information Value Date Recorded Sex Assigned at Male 06/20/2024 10:08 AM CDT 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 Sitting up in bed. Incision clean, [...] filedocumented in this encounter Care Teams Medical Surgical Tech Relationship Specialty Start Date End Date Harris Quinn MD [address] [place] [facility] [address] [place] [address] PCP - General Adolescent Medicine 01/12/24 Jackie Prado, LENS GRINDING MACHINE OPERATOR [address] [place] [address], [place] [address] Referring Physician Nurse Practitioner 01/12/24 documented as of this encounter
--- OUTSIDE RECORDS SUMMARY | 2025-07-15 11:22 | XMS_ITS | Clinical Summary ---
Author Organization [employer] ([place], [place], [place], [place]) Address [address] [place] [address] Care Team Providers Care Maintenance Technician 2Nd Shift Name Role Phone Harris uQinn MD Primary Care Provider + [phone] Jackie Prado PIZZA BAKER Unavailable + [phone] Allergies No known active allergies Medications * [...] mg total) by mouth daily. 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 Gender Identity Male 06/20/2024 10:08 AM CDT [...] 01/23/2021 Falls Risk Screening 11/21/2024 Influenza Vaccine (#1) 2025 , 10/11/2022, 10/08/2021, Additional history exists Tobacco Cessation Counseling and Screening (12+) 09/27/2025 09/27/2024 DTAP/TDAP/TD VACCINES (2 - T d or Tdap) 07/21/2026 07/21/2016 Insurance MEDICARE PART A B BLUE CROSS/BLUE SHIELD Care Teams Maintenance Technician 2Nd Shift Relationship Specialty Start Date End Date Harris Quinn MD [address] [facility] [address] [place] [address] PCP - General Adolescent Medicine 01/12/24 Jackie Prado, PIZZA BAKER [address] [facility] [address], [place] [address] Referring Physician Nurse Practitioner 01/12/24
--- OUTSIDE RECORDS SUMMARY | 2025-07-15 11:22 | XMS_ITS | Encounter Summary ---
Author Organization [employer] ([place], [place], [place], [place]) Address [address] [place] [address] Care Team Providers Care Poultry Raiser Name Role Phone Harris Quinn MD Primary Care Provider + [phone] Jackie Prado CATERING SALES MANAGER Unavailable + [phone] Encounter Details Date Type Department Care Team (Late st Contact Info) Description 09/27/2020 Transcribed Document [facility] [place] Family Medicine [address] [place] [address] ProviderJerrica MD [address] [place] [address] Social History Tobacco Use Types Packs/Day Years Used Date Smoking Tobacco: Never Assessed Sex and Gender Information Value Date Recorded Sex Assigned at Male 06/20/2024 10:08 AM CDT 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 Gender Identity Male 06/20/2024 10:08 AM CDT Sexual Orientation Not on file documented as of this encounter Miscellaneous Notes * Cerner Conversion Note - Jerrica ProviderMD - 09/27/2020 5:04 PM FILLING STATION LABORER Admission History, Adult Entered On: 09/27/2020 17:13 [...] Support Person/Pt Rep Name : mannie lambert [phone] Contact Password : heather christianson Support Person/Pt Rep Contact Information : daughter Want Family/Rep/Phys Notified of Admit : No Emergency Contact #1 : n Emergency Contact #1 Phone Number : n Emergency Contact #1 Relationship : n Emergency Contact #2 : n Emergency Contact #2 Phone Number : n Emergency Contact #2 Relationship : n Primary Language : Hungarian Communication Barrier : None Director Of Veterans Affairs Needed : No KATHY MOTLEY RN - [...] Scale Risk Level : 25-45 Medium Risk Scribner Fall Interventions : Adequate lighting, Assistive devices [...] Source : Stated Height Entry Format : [place] Height, Feet : 5 ft(Converted to: 152 cm, 60 Inch) Height, Inches : 5 Inch(Converted to: 0 ft 5 Inch, 12.70 cm) Clinical Height : 165.1 cm Weight Source : Bed scale Weight Entry Format : [place] Clinical Dosing Weight : 72.77 kg Weight, Pounds : 160.1 lb Body Surface Area (BSA) : 1.8 m2 Body Mass Index : 26.7 kg/m2 (HI) Micro Body Weight : 61 kg KATHY MOTLEY RN - 09/27/2020 17:35 EST Infectious Disease [...] KATHY MOTLEY RN - 09/27/2020 17:35 EST [place] Suicide Severity Rating Scale (C-SSRS) CSSRS Past [...] - 09/27/2020 17:35 EST Electronically signed by [facility] Conversion Dry Man Cerner at 03/08/2023 11:43 PM CDT documented in this encounter Plan of Treatment Not on file documented as of this encounter Visit Diagnoses Not on filedocumented in this encounter Care Teams Poultry Raiser Relationship Specialty Start Date End Date Harris Quinn MD [address] [place] [address] [place] [address] PCP - General Adolescent Medicine 01/12/24 Jackie Prado, CATERING SALES MANAGER [address] [place] [address], [place] [address] Referring Physician Nurse Practitioner 01/12/24 documented as of this encounter
--- OUTSIDE RECORDS SUMMARY | 2025-07-15 11:22 | XMS_ITS | Encounter Summary ---
Author Organization [employer] ([place], [place], [place], [place]) Address [address] [place] [address] Care Team Providers Care Theology Professor Name Role Phone Harris Quinn MD Primary Care Provider + [phone] Jackie Prado RAG WASHER Unavailable + [phone] Encounter Details Date Type Department Care Team (Late st Contact Info) Description 10/02/2020 Transcribed Document [facility] [place] [address] [place] [address] ProviderJerrica MD [address] [place] [address] Social History Tobacco Use Types Packs/Day Years Used Date Smoking Tobacco: Never Assessed Sex and Gender Information Value Date Recorded Sex Assigned at Male 06/20/2024 10:08 AM CDT 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 Gender Identity Male 06/20/2024 10:08 AM CDT Sexual Orientation Not on file documented as of this encounter Miscellaneous Notes * Cerner Conversion Note - Jerrica ProviderMD - 10/02/2020 10:00 AM ROCKET ENGINE MECHANIC Pain Assessment Entered On: 10/02/2020 13:20 EST Performed On: 10/02/2020 12:12 EST by Miko Perdomo RN Intervention Information: acetaminophen Performed by Miko Perdomo RN on 10/02/2020 11:12:00 EST acetaminophen,650mg Oral Pain Assessment Pain Scale Goal : 2 Miko Perdomo RN - 10/02/2020 13:20 EST Electronically signed by Bailey [facility] Conversion Spinning Doffer Cerner at 03/08/2023 11:34 PM CDT documented in this encounter Plan of Treatment Not on file documented as of this encounter Visit Diagnoses Not on filedocumented in this encounter Care Teams Theology Professor Relationship Specialty Start Date End Date Harris Quinn MD [address] [place] [facility] [address] [place] [address] PCP - General Adolescent Medicine 01/12/24 Jackie Prado, RAG WASHER [address] [place] [facility] [address], [place] [address] Referring Physician Nurse Practitioner 01/12/24 documented as of this encounter
--- OUTSIDE RECORDS SUMMARY | 2025-07-15 11:22 | XMS_ITS | Encounter Summary ---
Author Organization [employer] ([place], [place], [place], [place]) Address [address] [place] [address] Care Team Providers Care Restaurant Recruiter Name Role Phone Harris Quinn MD Primary Care Provider + [phone] Jackie Prado FUNERAL DIRECTOR/EMBALMER/OWNER Unavailable + [phone] Encounter Details Date Type Department Care Team (Late st Contact Info) Description 09/27/2020 Transcribed Document [facility] [place] [address] [place] [address] ProviderJerrica MD [address] [place] [address] Social History Tobacco Use Types Packs/Day Years Used Date Smoking Tobacco: Never Assessed Sex and Gender Information Value Date Recorded Sex Assigned at Male 06/20/2024 10:08 AM CDT Legal Sex Male 7:36 AM SENIOR ART DIRECTOR Gender Identity Male 06/20/2024 10:08 AM CDT Sexual Orientation Not on file documented as of this encounter Miscellaneous Notes * Cerner Conversion Note - Jerrica Clayton MD - 09/27/2020 5:27 PM SENIOR ART DIRECTOR Consult Phone Call Documentation Entered On: 09/27/2020 18:53 EST Performed On: 09/27/2020 17:27 EST by KATHY MOTLEY, RN Phone Call for Consults Consult Phone Call/Page Attempt : First call Physician Covering for Consult : TROY MCCLURE MD-LUISA Date and Time Call Returned : 09/27/2020 18:00 EST Physician Returning Call : TROY MCCLURE MD-U KATHY MOTLEY, RN - 09/27/2020 18:52 EST Electronically signed by Brenda Avalos Conversion Associate Professor Of Musicology Cerner at 03/08/2023 11:35 PM CDT documented in this encounter Plan of Treatment Not on file documented as of this encounter Visit Diagnoses Not on filedocumented in this encounter Care Teams Restaurant Recruiter Relationship Specialty Start Date End Date Harris Quinn MD [address] [place] [facility] [address] [place] [address] PCP - General Adolescent Medicine 01/12/24 Jackie Prado, FUNERAL DIRECTOR/EMBALMER/OWNER [address] [place] [address], [place] [address] Referring Physician Nurse Practitioner 01/12/24 documented as of this encounter
--- OUTSIDE RECORDS SUMMARY | 2025-07-15 11:22 | XMS_ITS | Encounter Summary ---
Author Organization [employer] ([place], [place], [place], [place]) Address [address] [place] [address] Care Team Providers Care Director Community Organization Name Role Phone Harris Quinn MD Primary Care Provider + [phone] Jackie Prado SUPERVISOR SOUND TECHNICIAN Unavailable + [phone] Encounter Details Date Type Department Care Team (Late st Contact Info) Description 09/27/2020 Transcribed Document [facility] [place] Family Medicine [address] [place] [address] ProviderJerrica MD [address] [place], [place] [address] Social History Tobacco Use Types Packs/Day Years Used Date Smoking Tobacco: Never Assessed Sex and Gender Information Value Date Recorded Sex Assigned at Male 06/20/2024 10:08 AM CDT 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 Electronically signed by Bailey, [facility] Conversion Drip Box Tender Cerner at 03/11/2023 9:23 AM CDT documented in this encounter Plan of Treatment Not on file documented as of this encounter Visit Diagnoses Not on filedocumented in this encounter Care Teams Director Community Organization Relationship Specialty Start Date End Date Harris Quinn MD [address] [place] [facility] [address] [place] [address] PCP - General Adolescent Medicine 01/12/24 Jackie Prado APRN [address] [place] [address], [place] [address] Referring Physician Nurse Practitioner 01/12/24 documented as of this encounter
--- OUTSIDE RECORDS SUMMARY | 2025-07-15 11:22 | XMS_ITS | Encounter Summary ---
Author Organization [id number] ([place], [place], [place], [place]) Address [address] [place] [address] Care Team Providers Care Veneer Glue Jointer Feedback Name Role Phone Harris Quinn MD Primary Care Provider + [phone] Jackie Prado ENGINEER PROCESS Unavailable + [phone] Encounter Details Date Type Department Care Team (Late st Contact Info) Description 10/03/2020 Transcribed Document [facility] [place] [address] [place] [address] ProviderJerrica MD [address] [place], [place] [address] Social History Tobacco Use Types Packs/Day Years Used Date Smoking Tobacco: Never Assessed Sex and Gender Information Value Date Recorded Sex Assigned at Male 06/20/2024 10:08 AM CDT 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 : Yes RICHIE GLASGOW RN-Loan Operations Manager - 10/03/2020 15:53 EST Electronically signed by [facility] Conversion Flat Sorting Machine Clerk Cerner at 03/08/2023 11:26 PM CDT documented in this encounter Plan of Treatment Not on file documented as of this encounter Visit Diagnoses Not on filedocumented in this encounter Care Teams Veneer Glue Jointer Feedback Relationship Specialty Start Date End Date Harris Quinn MD [address] [facility] [address] [place] [address] PCP - General Adolescent Medicine 01/12/24 Jackie Prado, ENGINEER PROCESS 1210 [facility] [address], [place] [address] Referring Physician Nurse Practitioner 01/12/24 documented as of this encounter
--- OUTSIDE RECORDS SUMMARY | 2025-07-15 11:22 | XMS_ITS | Clinical Summary ---
[facility] Address [address] [place] [address] Care Team Providers Care Band Presser Name Role Phone Harris Quinn MD Primary Care Provider + [phone] Allergies No known active allergies Medications gabapentin [...] 1 tablet by mouth Daily. 4 Active Kensal-3 Fatty Acids (fish oil) 1000 MG capsule [...] or training? Not on file Preferred Language Surinamese 07/24/2024 Sex and Gender Information Value Date [...] [employer] Implanted Type Area Manager Of Global Device Identifier Shelf Expiration Date Model / Serial / Lot Stem Hum Equinoxe Preserve 7mm - [id number] - [id number] Implanted:Qt y: 1 on 08/06/2024 by Anup Louis MD at [facility] Implant Right: Shoulder EXACTECH [id number] 02/01/2034 [id number] / [id number] / N/A Scrw Equinoxe Torq Define Rev Shldr Kt - [id number] - [id number] Implanted:Qt y: 1 on 08/06/2024 by Anup Louis MD at [facility] Implant Right: Shoulder EXACTECH [id number] 05/13/2029 [id number] / [id number] / N/A Liner Hum/Shldr Equinoxe/Rev 38mm Pls0 - [id number] - [id number] Implanted:Qt y: 1 on 08/06/2024 by Anup Louis MD at [facility] Implant Right: Shoulder EXACTECH [id number] 03/06/2029 [id number] / [id number] / N/A Try Adapt Hum/Shldr Equinoxe For/Rev/Totl Pls0 - [id number] - [id number] Implanted:Qt y: 1 on 08/06/2024 by Anup Louis MD at [facility] Implant Right: Shoulder EXACTECH [id number] 05/17/2034 [id number] / [id number] / N/A Totl Shldr Rev Jun [id number] Implanted:Qt y: 1 on 08/06/2024 by Anup Louis MD at [facility] Implant Right: Shoulder EXACTECH CAPSHOULDREVAUGE X AC / / Plt Fred Jnt Equinoxe Aug/Superior 10deg - [id number] - [id number] Implanted:Qt y: 1 on 08/06/2024 by Anup Louis MD at [facility] Implant Right: Shoulder EXACTECH [id number] 10/16/2028 [id number] / [id number] / N/A Scrw Compr Equinoxe Lk 4.5x30mm - [id number] - [id number] Implanted:Qt y: 1 on 08/06/2024 by Anup Louis MD at [facility] Implant Right: Shoulder EXACTECH [id number] 02/28/2029 [id number] / [id number] / Scrw Compr Equinoxe Lk 4.5x26mm - [id number] - [id number] Implanted:Qt y: 1 on 08/06/2024 by Anup Louis MD at [facility] Implant Right: Shoulder EXACTECH [id number] 07/27/2028 [id number] / [id number] / N/A Scrw Compr Equinoxe Lk 4.5x34mm - [id number] - [id number] Implanted:Qt y: 1 on 08/06/2024 by Anup Louis MD at [facility] Implant Right: Shoulder EXACTECH [id number] 11/09/2028 [id number] / [id number] / N/A Glenosphere Shldr/Rev Equinoxe W/Cp/Lk/Ext 38mm - [id number] - [id number] Implanted:Qt y: 1 on 08/06/2024 by Anup Louis MD at [facility] Implant Right: Shoulder EXACTECH [id number] 03/21/2034 [id number] / [id number] / N/A Scrw Lk Equinoxe Glenosphere Rev/Shldr - [id number] - [id number] Implanted:Qt y: 1 on 08/06/2024 by Anup Louis MD at [facility] Implant Right: Shoulder EXACTECH [id number] 03/18/2029 [id number] / [id number] / N/A Scrw Compr Equinoxe Lk 4.5x42mm - [id number] - [id number] Implanted:Qt y: 1 on 08/06/2024 by Anup Louis MD at [facility] Implant Right: Shoulder EXACTECH [id number] 09/23/2025 [id number] / [id number] / N/A Sut Fw #2 W/Tpr Ndl 1/2 Cir 38in 97cm 26.5mm Darryn - [id number] Implanted:Qt y: 1 on 08/06/2024 by Anup Louis MD at [facility] Implant Right: Shoulder ARTHREX [id number] 04/20/2028 [id number] / / [id number] Additional Health Concerns Active Problems Noted Date Diagnosed Date Autogenerated Problem 06/03/2025 Insurance MEDICARE A & B Member Subscriber Plan / Payer (Ef fective 2021-Present) Name:Eliza Lambert Member ID:[id number] Relation to Subscriber:Self Name:Eliza Lambert Subscriber ID:[id number] Payer ID:[id number] Group ID:Not on file Type:Not on file Address: [facility] [id number] Care Teams Band Presser Relationship Specialty Start Date End Date Harris Quinn MD [address] [facility] [address] [place] [address] PCP - General Adolescent Medicine 07/24/24
--- OUTSIDE RECORDS SUMMARY | 2025-07-15 11:22 | XMS_ITS | Encounter Summary ---
Author Organization [employer] ([place], [place], [place], [place]) Address [address] [place] [address] Care Team Providers Care Manager Furniture Name Role Phone Harris Quinn MD Primary Care Provider + [phone] Jackie Prado PILE DRIVER OPERATOR BARGE MOUNTED Unavailable + [phone] Encounter Details Date Type Department Care Team (Late st Contact Info) Description 10/02/2020 Transcribed Document [facility] [place] Family Medicine [address] [place] [address] ProviderJerrica MD [address] [place], [place] [address] Social History Tobacco Use Types Packs/Day Years Used Date Smoking Tobacco: Never Assessed Sex and Gender Information Value Date Recorded Sex Assigned at Male 06/20/2024 10:08 AM CDT Legal Sex Male 7:36 AM FUEL EFFICIENT AIRCRAFT DESIGNER Gender Identity Male 06/20/2024 10:08 AM CDT Sexual Orientation Not on file documented as of this encounter Miscellaneous Notes * Cerner Conversion Note - Jerrica ProviderMD - 10/02/2020 10:00 PM FUEL EFFICIENT AIRCRAFT DESIGNER Pain Assessment Entered On: 10/03/2020 0:13 EST [...] on filedocumented in this encounter Care Teams Manager Furniture Relationship Specialty Start Date End Date Harris Quinn MD [address] [facility] [address] [place] [address] PCP - General Adolescent Medicine 01/12/24 Jackie Prado, LEORA 1210 [facility] [address], [place] [address] Referring Physician Nurse Practitioner 01/12/24 documented as of this encounter
--- OUTSIDE RECORDS SUMMARY | 2025-07-15 11:22 | XMS_ITS | Encounter Summary ---
Author Organization [employer] ([place], [place], [place], [place]) Address [address] [place] [address] Care Team Providers Care Wool Fleece Grader Name Role Phone Harris Quinn MD Primary Care Provider + [phone] Jackie Prado DESIGN DRAFTER CHIEF Unavailable + [phone] Encounter Details Date Type Department Care Team (Late st Contact Info) Description 09/30/2020 Transcribed Document [facility] Family Medicine [address] [place] [address] ProviderJerrica MD [address] [place] [address] Social History Tobacco Use Types Packs/Day Years Used Date Smoking Tobacco: Never Assessed Sex and Gender Information Value Date Recorded Sex Assigned at Male 06/20/2024 10:08 AM CDT Legal Sex Male 7:36 AM SILVERWARE BUFFING MACHINE OPERATOR Gender Identity Male 06/20/2024 10:08 AM CDT Sexual Orientation Not on file documented as of this encounter Miscellaneous Notes * Cerner Conversion Note - Historical ProviderMD - 09/30/2020 8:15 PM SILVERWARE BUFFING MACHINE OPERATOR Evaluation, Occupational Therapy Entered On: 10/01/2020 11:40 [...] Number of Steps : 1 CHRISTIAN FONTANEZ OTR/Sebastien - 10/01/2020 11:36 EST Prior LOF Bathing, OT : Independent Prior LOF Bed Mobility : Independent Prior LOF Upper Body Dressing, OT : Independent Prior LOF Lower Body Dressing, OT : Independent Prior LOF Toileting : Independent Prior LOF Transfer : Independent Prior LOF Grooming, OT : Independent Prior LOF for IADLs, OT : Independent CHRISTIAN FONTANEZ OTR/L - 10/01/2020 11:36 EST Upper Extremity Right UE Active ROM : WFL Right UE Strength : WFL Left UE Active ROM : WFL Left UE Strength : WFL CHRISTIAN FONTANEZ OTR/L - 10/01/2020 11:36 EST Self Care/Home Management, OT Self Feeding Assist Level, OT : Supervision or set-up Grooming Assist Level, OT : Supervision or set-up Bathing Assist Level, OT : Assist, minimal Upper Body Dressing Assist Level, OT : Assist, minimal Lower Body Dressing Assist Level, OT : Assist, minimal Toileting Assist Level : Assist, minimal CHRISTIAN FONTANEZ OTR/L - 10/01/2020 11:36 EST Functional Mobility Mobility [...] CHRISTIAN FONTANEZ OTR/Sebastien - 10/01/2020 11:36 EST Dosimetrist Goals, OT Grooming LTG Grid Goal #1 [...] 10/15/2020 EST Goal Status : Initial goal HUSEYIN, OSMAN GONZALES/Sebastien - 10/01/2020 11:36 EST Treatment Note Subjective [...] Pain Score Pre-Intervention : 3 CHRISTIAN FONTANEZ OTR/Sebastien - 10/01/2020 11:36 EST Image 1 - Images currently included in the form version of this document have not been included in the text rendition version of the form. [place] OT Charges OT Eval Low Complexity : 1 CHRISTIAN FONTANEZ OTR/Sebastien - 10/01/2020 11:36 EST Electronically signed by [facility] Conversion Box Press Operator Cerner at 03/08/2023 11:45 PM CDT documented in this encounter Plan of Treatment Not on file documented as of this encounter Visit Diagnoses Not on filedocumented in this encounter Care Teams Wool Fleece Grader Relationship Specialty Start Date End Date Harris Quinn MD [address] [place] [facility] [address] [place] [address] PCP - General Adolescent Medicine 01/12/24 Jackie Prado, DESIGN DRAFTER CHIEF [address] [place] [address], [place] [address] Referring Physician Nurse Practitioner 01/12/24 documented as of this encounter
--- OUTSIDE RECORDS SUMMARY | 2025-07-15 11:23 | XMS_ITS | Encounter Summary ---
Author Organization [employer] ([place], [place], [place], [place]) Address [address] [place] [address] Care Team Providers Care Paper Hanger Name Role Phone Harris Quinn MD Primary Care Provider + [phone] Jackie Prado FURNITURE REPAIRER Unavailable + [phone] Encounter Details Date Type Department Care Team (Late st Contact Info) Description 10/06/2020 Transcribed Document [facility] Family Medicine [address] [place] [address] ProviderJerrica MD [address] [place], [place] [address] Social History Tobacco Use Types Packs/Day Years Used Date Smoking Tobacco: Never Assessed Sex and Gender Information Value Date Recorded Sex Assigned at Male 06/20/2024 10:08 AM CDT Legal Sex Male 7:36 AM TRAUMA PROGRAM MANAGER Gender Identity Male 06/20/2024 10:08 AM CDT Sexual Orientation Not on file documented as of this encounter Miscellaneous Notes * Cerner Conversion Note - Historical ProviderMD - 10/06/2020 1:40 PM TRAUMA PROGRAM MANAGER UM Authorization Entered On: 10/06/2020 13:40 EST Performed On: 10/06/2020 13:40 EST by Rema Dawn Rn-Utilization Review Primary Insurance Authorization Authorization and Policy Numbers : Insurance 1 Health Plan: [employer] Policy Number: [id number] Authorization Number: Insurance Primary Name : [employer] Policy Number: [id number] Authorization Status-Primary : Admit approved Reference Number-Primary : [id number] Number of Days Authorized-Primary : 10 Day(s) Authorized Service Begin Date-Primary : 09/27/2020 EST Authorized Service End Date-Primary : 10/07/2020 EST Authorization Comments-Primary : D/C SUMMARY FAXED PER LAINE SOUSA ENTERED IN STAR Historical Authorization Comments-Primary : Comment 1: Authorized per fax 09/30/2020 @ 1014. Approved inpatient stay x11 days. Next review due 10/08/2020. (Lyric Gerard, Flamer After Lasting 09/30/2020 14:05) Comment 2: plan is for OR 09/30/2020; upgraded to IP, email to dt to update status, secure email sent to [facility] w/ demographics and initial packet attached (AUSTIN KENNEY, RN-Utilization Review 09/29/2020 14:46) Comment 3: EM TO UR TEAM TO UPGRADE TO IP IF PATIENT HAS SURGERY (Rema Dawn, Rn-Utilization Review 09/28/2020 12:09) Rema Dawn, Rn-Utilization Review - 10/06/2020 13:40 EST documented in this encounter Plan of Treatment Not on file documented as of this encounter Visit Diagnoses Not on filedocumented in this encounter Care Teams Paper Hanger Relationship Specialty Start Date End Date Harris Quinn MD [address] [facility] [address] [place] [address] PCP - General Adolescent Medicine 01/12/24 Jackie Prado, FURNITURE REPAIRER [address] [facility] [address], [place] [address] Referring Physician Nurse Practitioner 01/12/24 documented as of this encounter
--- OUTSIDE RECORDS SUMMARY | 2025-07-15 11:23 | XMS_ITS | Encounter Summary ---
Author Organization [employer] ([place], [place], [place], [place]) Address [address] [place] [address] Care Team Providers Care Throat Cutter Name Role Phone Harris Quinn MD Primary Care Provider + [phone] Jackie Prado IP TECHNOLOGY TRANSACTIONS ATTORNEY Unavailable + [phone] Encounter Details Date Type Department Care Team (Late st Contact Info) Description 10/01/2020 Transcribed Document [facility] Family Medicine [address] [place] [address] ProviderJerrica MD [address] [place] [id number] Social History Tobacco Use Types Packs/Day Years Used Date Smoking Tobacco: Never Assessed Sex and Gender Information Value Date Recorded Sex Assigned at Male 06/20/2024 10:08 AM CDT Legal Sex Male 7:36 AM INSPECTOR EYEGLASS Gender Identity Male 06/20/2024 10:08 AM CDT Sexual Orientation Not on file documented as of this encounter Miscellaneous Notes * Cerner Conversion Note - Jerrica ProviderMD - 10/01/2020 12:47 PM INSPECTOR EYEGLASS Patient: ELIZA GUARDADO Age: 65 years Sex: Male : 1955 Associated Diagnoses: None Author: TISHA RENEE, [facility] Mr. Guardado is a 65 yo male who is 1 day s/p neurosurgery for laminictomy/fusion, who also has an acute RLE DVT. Pharmacy was asked to assist with lovenox dosing in the setting of recent NS. Ht: 165cm Wt: ~72kg NKDA Vitals Signs (last 24 hrs) Last Charted Minimum Maximum Temp 98.2 (OCT 01:) 97.7 (OCT 01 06:15) 98.6 (SEP 30 20:08) Mon HR 77 (OCT 01:) 62 (SEP 30 14:17) 85 (SEP 30 20:08) Periph HR 49 (SEP 30 15:02) 49 (SEP 30 15:02) 49 (SEP 30 15:02) Resp Rate 18 (OCT 01:) 14 (SEP 30 15:02) 18 (SEP 30 14:17) SBP 131 (OCT 01:) 99 (OCT 01 02:00) H 165 (SEP 30 15:02) DBP L 44 (OCT 01:) L 39 (OCT 01 02:00) 64 (SEP 30 21:00) MAP 66 (OCT 01:) 53 (OCT 01 02:00) 92 (SEP 30 21:00) SpO2 94 (OCT 01:) 94 (OCT 01:) 99 (SEP 30 14:17) Labs (Last four charted values) WBC H 15.0 (NOV ) 6.3 (NOV ) HB L 9.7 (NOV ) L 12.6 (NOV 08) HCT L 29.4 (NOV 11) L 39.7 (NOV 08) Plt 294 (NOV ) 345 (NOV 08) Na 137 (NOV 11) 136 (NOV 08) L 135 (NOV ) K 4.2 (NOV 11) 4.3 (NOV 08) [...] P 93 (NOV 11) T Bili 0.2 (OCT 01) PTN L 5.4 (OCT 01) ALB L [...] acute RLE DVT. Thank You, Tisha Renee, JamesD documented in this encounter Plan of Treatment Not on file documented as of this encounter Visit Diagnoses Not on filedocumented in this encounter Care Teams Throat Cutter Relationship Specialty Start Date End Date Harris Quinn MD [address] [facility] [address] [place] [address] PCP - General Adolescent Medicine 01/12/24 Jackie Prado, IP TECHNOLOGY TRANSACTIONS ATTORNEY [address] [facility] [address] [place] [address] Referring Physician Nurse Practitioner 01/12/24 documented as of this encounter
--- OUTSIDE RECORDS SUMMARY | 2025-07-15 11:23 | XMS_ITS | Encounter Summary ---
Author Organization [employer] ([place], [place], [place], [place]) Address [address] [place] [address] Care Team Providers Care Steward/Stewardess Dining Room Name Role Phone Harris Quinn MD Primary Care Provider + [phone] Jackie Prado EMBROIDERY OPERATOR Unavailable + [phone] Encounter Details Date Type Department Care Team (Late st Contact Info) Description 10/01/2020 Transcribed Document [facility] Family Medicine [address] [place] [address] ProviderJerrica MD [address] [place], [place] [id number] Social History Tobacco Use Types Packs/Day Years Used Date Smoking Tobacco: Never Assessed Sex and Gender Information Value Date Recorded Sex Assigned at Male 06/20/2024 10:08 AM CDT Legal Sex Male 7:[address] COMMISSIONER Gender Identity Male 06/20/2024 10:08 AM CDT Sexual Orientation Not on file documented as of this encounter Miscellaneous Notes * Cerner Conversion Note - Jerrica ProviderMD - 10/01/2020 2:[address] COMMISSIONER Pain Assessment Entered On: 10/01/2020 2:35 EST Performed On: 10/01/2020 2:55 EST by Armando Armenta Rn Intervention Information: acetaminophen Performed by Armando Armenta Rn on 10/01/2020 01:55:00 EST acetaminophen,650mg Oral Pain Assessment Pain Scale Goal : 2 Armando Armenta Rn - 10/01/2020 2:35 EST Electronically signed by Bailey [facility] Conversion [employer] Executive Director Cerner at 03/08/2023 11:24 PM CDT documented in this encounter Plan of Treatment Not on file documented as of this encounter Visit Diagnoses Not on filedocumented in this encounter Care Teams Steward/Stewardess Dining Room Relationship Specialty Start Date End Date Harris Quinn MD [address] [place] [facility] [address] [place] [address] PCP - General Adolescent Medicine 01/12/24 Jackie Prado, EMBROIDERY OPERATOR [address] [place] [facility] [address], [place] [address] Referring Physician Nurse Practitioner 01/12/24 documented as of this encounter
--- OUTSIDE RECORDS SUMMARY | 2025-07-15 11:23 | XMS_ITS | Encounter Summary ---
Author Organization [employer] ([place], [place], [place], [place]) Address [address] [place] [address] Care Team Providers Care Pet Ambassador Name Role Phone Harris Quinn MD Primary Care Provider + [phone] Jackie Prado EQUINE MANAGER Unavailable + [phone] Encounter Details Date Type Department Care Team (Late st Contact Info) Description 10/01/2020 Transcribed Document [facility] Family Medicine [address] [place] [address] ProviderJerrica MD [address] [place], [place] [address] Social History Tobacco Use Types Packs/Day Years Used Date Smoking Tobacco: Never Assessed Sex and Gender Information Value Date Recorded Sex Assigned at Male 06/20/2024 10:08 AM CDT Legal Sex Male 7:36 AM DIGITAL SALES MANAGER Gender Identity Male 06/20/2024 10:08 AM CDT Sexual Orientation Not on file documented as of this encounter Miscellaneous Notes * Cerner Conversion Note - Jerrica ProviderMD - 10/01/2020 2:00 PM DIGITAL SALES MANAGER Pain Assessment Entered On: 10/01/2020 17:59 EST [...] EST Pain Scale Intensity : 4 Jessica Boyer, RN - 10/01/2020 17:58 EST Image 4 - Images currently included in the form version of this document have not been included in the text rendition version of the form. documented in this encounter Plan of Treatment Not on file documented as of this encounter Visit Diagnoses Not on filedocumented in this encounter Care Teams Pet Ambassador Relationship Specialty Start Date End Date Harris Quinn MD [address] [facility] [address] [place] [address] PCP - General Adolescent Medicine 01/12/24 Jackie Prado, EQUINE MANAGER [address] [place] [facility] [address], [place] [address] Referring Physician Nurse Practitioner 01/12/24 documented as of this encounter
--- OUTSIDE RECORDS SUMMARY | 2025-07-15 11:23 | XMS_ITS | Encounter Summary ---
Author Organization [employer] ([place], [place], [place], [place]) Address [address] [place] [address] Care Team Providers Care Corporate Administrative Assistant Name Role Phone Harris Quinn MD Primary Care Provider + [phone] Jackie Prado RN CLINICAL RESOURCE Unavailable + [phone] Encounter Details Date Type Department Care Team (Late st Contact Info) Description 10/03/2020 Transcribed Document [facility] Family Medicine [address] [place] [address] ProviderJerrica MD [address] [place], [place] [address] Social History Tobacco Use Types Packs/Day Years Used Date Smoking Tobacco: Never Assessed Sex and Gender Information Value Date Recorded Sex Assigned at Male 06/20/2024 10:08 AM CDT Legal Sex Male 7:36 AM BUSINESS LIAISON OFFICER Gender Identity Male 06/20/2024 10:08 AM CDT Sexual Orientation Not on file documented as of this encounter Miscellaneous Notes * Cerner Conversion Note - Jerrica Clayton MD - 10/03/2020 3:53 PM BUSINESS LIAISON OFFICER Final Discharge Planning Entered On: 10/03/2020 15:54 EST Performed On: 10/03/2020 15:53 EST by RICHIE GLASGOW RN-Mud Analysis Well Logging Captain Final Discharge Planning Discharge Arrangements : Patient [...] : Yes Discharge To Care Management : Home/Residential/[facility]cf or Self Care - RICHIE GLASGOW RN-Mud Analysis Well Logging Captain - 10/03/2020 15:53 EST Final Narrative Note Final Narrative Note : DC orders noted. FRW obtained from [employer] as he has no dme provider pref and it has been delivered. Pt still declining HH services. No other CM needs noted. RICHIE GLASGOW RN-Mud Analysis Well Logging Captain - 10/03/2020 15:53 EST Electronically signed by Interface, [facility] Conversion [place] Gold Attendant Cerner at 03/08/2023 11:49 PM CDT documented in this encounter Plan of Treatment Not on file documented as of this encounter Visit Diagnoses Not on filedocumented in this encounter Care Teams Corporate Administrative Assistant Relationship Specialty Start Date End Date Harris Quinn MD [address] [place] [address] [place] [address] PCP - General Adolescent Medicine 01/12/24 Jackie Prado, RN CLINICAL RESOURCE [address] [place] [address] [place] [address] Referring Physician Nurse Practitioner 01/12/24 documented as of this encounter
--- OUTSIDE RECORDS SUMMARY | 2025-07-15 11:23 | XMS_ITS | Encounter Summary ---
Author Organization [employer] ([place], [place], [place], [place]) Address [address] [place] [address] Care Team Providers Care Micro Computer Specialist Name Role Phone Harris Quinn MD Primary Care Provider + [phone] Jackie Prado WORKING FOREMAN Unavailable + [phone] Encounter Details Date Type Department Care Team (Late st Contact Info) Description 09/30/2020 Transcribed Document [facility] Neurology [facility] [address] [id number] John Cerda MD [address] [place] [address] [address] [place] [address] Social History Tobacco Use Types Packs/Day Years Used Date Smoking Tobacco: Never Assessed Sex and Gender Information Value Date Recorded Sex Assigned at Male 06/20/2024 10:08 AM CDT Legal Sex Male 7:36 AM IRRIGATION ENGINEER Gender Identity Male 06/20/2024 10:08 AM [...] Last Charted Minimum Maximum Temp 97.7 (SEP 30 06:) 97.7 (SEP 30:) 98.3 (SEP 29:21) Apical HR 73 (SEP 29 18:23) 73 (SEP 29 18:23) 73 (SEP 29 18:23) Mon HR 55 (SEP 30 06:) 46 (SEP 30:36) 74 (SEP 29 11:21) Resp Rate 18 (SEP 30:) 16 (SEP 29 14:39) 19 (SEP 30:36) SBP 135 (SEP 30:) 135 (SEP 30:) H 180 (SEP 29:) DBP L 48 (SEP 30:) L 48 (SEP 30:) 89 (SEP 29:) MAP 68 (SEP 30:) 68 (SEP 30:) 113 (SEP 29:22) SpO2 96 (SEP 30:) 96 (SEP 30:36) [...] on filedocumented in this encounter Care Teams Micro Computer Specialist Relationship Specialty Start Date End Date Harris Quinn MD [address] [place] [facility] [address] [place] [address] PCP - General Adolescent Medicine 01/12/24 Jackie Prado, WORKING FOREMAN [address] [place] [address], [place] [address] Referring Physician Nurse Practitioner 01/12/24 documented as of this encounter
--- OUTSIDE RECORDS SUMMARY | 2025-07-15 11:23 | XMS_ITS | Encounter Summary ---
Author Organization [employer] ([place], [place], [place], [place]) Address [address] [place] [address] Care Team Providers Care Buckle Sewer Name Role Phone Harris Quinn MD Primary Care Provider + [phone] Jackie Prado PLASMA PROCESSING CENTRIFUGE OPERATOR Unavailable + [phone] Encounter Details Date Type Department Care Team (Late st Contact Info) Description 10/03/2020 Transcribed Document [facility] Family Medicine [address] [place] [address] ProviderJerrica MD [address] [place], [place] [address] Social History Tobacco Use Types Packs/Day Years Used Date Smoking Tobacco: Never Assessed Sex and Gender Information Value Date Recorded Sex Assigned at Male 06/20/2024 10:08 AM CDT Legal Sex Male 7:36 AM CO CHAIRMAN Gender Identity Male 06/20/2024 10:08 AM CDT Sexual Orientation Not on file documented as of this encounter Miscellaneous Notes * Cerner Conversion Note - Historical ProviderMD - 10/03/2020 2:25 PM CO CHAIRMAN Stroke/Warfarin Instructions Entered On: 10/03/2020 14:25 EST Performed On: 10/03/2020 14:25 EST by GABY GRAVES RN Stroke/Warfarin Instructions Stroke/TIA Discharge Ins : N/A Warfarin Discharge Ins : N/A GABY GRAVES RN - 10/03/2020 14:25 EST Electronically signed by Bailey [facility] Conversion Machine Feed Operator Cerner at 03/08/2023 11:39 PM CDT documented in this encounter Plan of Treatment Not on file documented as of this encounter Visit Diagnoses Not on filedocumented in this encounter Care Teams Buckle Sewer Relationship Specialty Start Date End Date Harris Quinn MD [address] [place] [facility] [address] [place] [address] PCP - General Adolescent Medicine 01/12/24 Jackie Prado, PLASMA PROCESSING CENTRIFUGE OPERATOR [address] [place] [facility] [address], [place] [address] Referring Physician Nurse Practitioner 01/12/24 documented as of this encounter
--- OUTSIDE RECORDS SUMMARY | 2025-07-15 11:23 | XMS_ITS | Encounter Summary ---
Author Organization [employer] ([place], [place], [place], [place]) Address [address] [place] [address] Care Team Providers Care Histotechnologist Supervisor Name Role Phone Harris Quinn MD Primary Care Provider + [phone] Jackie Prado BAND TEACHER Unavailable + [phone] Encounter Details Date Type Department Care Team (Late st Contact Info) Description 10/01/2020 Transcribed Document [facility] [place] [address] [place] [address] ProviderJerrica MD [address] [place], [place] [address] Social History Tobacco Use Types Packs/Day Years Used Date Smoking Tobacco: Never Assessed Sex and Gender Information Value Date Recorded Sex Assigned at Male 06/20/2024 10:08 AM CDT Legal Sex Male 7:36 AM FIELD INSURANCE SALES MANAGER Gender Identity Male 06/20/2024 10:08 AM CDT Sexual Orientation Not on file documented as of this encounter Miscellaneous Notes * Cerner Conversion Note - Historical ProviderMD - 10/01/2020 5:00 PM FIELD INSURANCE SALES MANAGER Chart Check - Review Order Profile Entered On: 10/01/2020 18:58 EST Performed On: 10/01/2020 17:00 EST by Jessica Boyer RN Chart Check Powerplans Initiated/Discontinued as Appropriate : Yes All Active Orders Reviewed : Yes Jessica Boyer RN - 10/01/2020 18:58 EST Electronically signed by Bailey [facility] Conversion Sign Writer Letterer Or Painter Cerner at 03/08/2023 11:24 PM CDT documented in this encounter Plan of Treatment Not on file documented as of this encounter Visit Diagnoses Not on filedocumented in this encounter Care Teams Histotechnologist Supervisor Relationship Specialty Start Date End Date Harris Quinn MD [address] [place] [facility] [address] [place] [address] PCP - General Adolescent Medicine 01/12/24 Jackie Prado, BAND TEACHER [address] [place] [facility] [address], [place] [address] Referring Physician Nurse Practitioner 01/12/24 documented as of this encounter
--- OUTSIDE RECORDS SUMMARY | 2025-07-15 11:23 | XMS_ITS | Encounter Summary ---
Author Organization [employer] ([place], [place], [place], [place]) Address [address] [place] [address] Care Team Providers Care Laundry Superintendent Name Role Phone Harris Quinn MD Primary Care Provider + [phone] Jackie Prado DRUM DYEING MACHINE OPERATOR Unavailable + [phone] Encounter Details Date Type Department Care Team (Late st Contact Info) Description 09/30/2020 Transcribed Document [facility] [place] [address] [place] [address] ProviderJerrica MD [address] [place] [address] Social History Tobacco Use Types Packs/Day Years Used Date Smoking Tobacco: Never Assessed Sex and Gender Information Value Date Recorded Sex Assigned at Male 06/20/2024 10:08 AM CDT Legal Sex Male 7:36 AM CAR INSTALLATIONS SUPERVISOR Gender Identity Male 06/20/2024 10:08 AM CDT Sexual Orientation Not on file documented as of this encounter Miscellaneous Notes * Cerner Conversion Note - Jerrica ProviderMD - 09/30/2020 3:02 PM CAR INSTALLATIONS SUPERVISOR Procedural Documentation Entered On: 09/30/2020 15:03 EST [...] after prepped/draped Procedure Case Attendee : ÁLVARO WHITLEY MD-ANS Procedure Case Attendee Role : Anesthesiologist Procedure Case Attendee Role 2 : nail puller Case Attendee 2 : TIM Guardado RN Wilson, DUSTI W, RN - 09/30/2020 15:02 EST Laura Level [...] - 09/30/2020 15:02 EST Electronically signed by [facility], [facility] Conversion Clinical Laboratory Technologist Cerner at 03/08/2023 11:49 PM CDT documented in this encounter Plan of Treatment Not on file documented as of this encounter Visit Diagnoses Not on filedocumented in this encounter Care Teams Laundry Superintendent Relationship Specialty Start Date End Date Harris Quinn MD [address] [place] [facility] [address] [place] [address] PCP - General Adolescent Medicine 01/12/24 Jakcie Prado, DRUM DYEING MACHINE OPERATOR [address] [place] [address] [place], [place] [address] Referring Physician Nurse Practitioner 01/12/24 documented as of this encounter
--- OUTSIDE RECORDS SUMMARY | 2025-07-15 11:23 | XMS_ITS | Encounter Summary ---
Author Organization [employer] ([place], [place], [place], [place]) Address [address] [place] [address] Care Team Providers Care Eye Surgeon Name Role Phone Harris Quinn MD Primary Care Provider + [phone] Jackie Prado CLAIM REVIEW MEDICAL DIRECTOR Unavailable + [phone] Encounter Details Date Type Department Care Team (Late st Contact Info) Description 10/03/2020 Transcribed Document [facility] [place] [address] [place] [address] ProviderJerrica MD [address] [place], [place] [address] Social History Tobacco Use Types Packs/Day Years Used Date Smoking Tobacco: Never Assessed Sex and Gender Information Value Date Recorded Sex Assigned at Male 06/20/2024 10:08 AM CDT Legal Sex Male 7:36 AM COVER MAKING MACHINE OPERATOR Gender Identity Male 06/20/2024 10:08 AM CDT Sexual Orientation Not on file documented as of this encounter Miscellaneous Notes * Cerner Conversion Note - Jerrica Clayton MD - 10/03/2020 2:21 PM COVER MAKING MACHINE OPERATOR Patient Education Materials Follows: Spinal Fusion, Adult [...] tells you to take them. ? Taking [id number] medicines, vitamins, herbs, and supplements. ??? You [...] 03/02/2012 Document Revised: 01/03/2020 Document Reviewed: 02/21/2018 [employer] Patient Education ? 2019 [employer] documented in this encounter Plan of Treatment Not on file documented as of this encounter Visit Diagnoses Not on filedocumented in this encounter Care Teams Eye Surgeon Relationship Specialty Start Date End Date Harris Quinn MD 1210 [facility] [address] [place] [address] PCP - General Adolescent Medicine 01/12/24 Jackie Prado, CLAIM REVIEW MEDICAL DIRECTOR 1210 [facility] [address] [place], [place] [address] Referring Physician Nurse Practitioner 01/12/24 documented as of this encounter
[2025-07-15 11:52] VITALS: BP 130/66; PULSE 62; RESP 14; O2SAT 97; BMI 28.3
== END 2025-07-15 23:59 | disposition home or self-care (01) ==
LOC: SC.PAIN 10:37
PROVIDERS: PCP Internal Medicine Adolescent Medicine; Visit Provider Nurse Practitioner Family
DX: M47.816 Spondylosis without myelopathy or radiculopathy, lumbar region (principal); G89.29 Other chronic pain; Z98.1 Arthrodesis status
CPT/HCPCS: 99212; G0463

== ENCOUNTER 2025-07-28 11:49 | Emergency (ER) | payer MEDICARE, BC, SELFPAY ==
[2025-07-28] VITALS (15 sets, daily range): BP systolic 100–148; BP diastolic 44–65; PULSE 70–94; RESP 11–20; TEMP 36.9–37.2; O2SAT 94–99; BMI 26.6
--- OUTSIDE RECORDS SUMMARY | 2025-07-28 12:08 | XMS_ITS | Encounter Summary ---
Author Organization [employer] ([place], [place], [place], [place]) Address [address] [place] [address] Care Team Providers Care Composing Machine Operator Name Role Phone Harris Quinn MD Primary Care Provider + [phone] Jackie Prado ALLIED HEALTH INSTRUCTOR Unavailable + [phone] Encounter Details Date Type Department Care Team (Late st Contact Info) Description 09/28/2020 Transcribed Document [facility] [place] Family Medicine [address] [place] [address] ProviderJerrica MD [address] [place], [place] [address] Social History Tobacco Use Types Packs/Day Years Used Date Smoking Tobacco: Never Assessed Sex and Gender Information Value Date Recorded Sex Assigned at Male 06/20/2024 10:08 AM CDT Legal Sex Male 7:36 AM DIRECT SUPPORT STAFF MEMBER Gender Identity Male 06/20/2024 10:08 AM CDT Sexual Orientation Not on file documented as of this encounter Miscellaneous Notes * Cerner Conversion Note - Historical ProviderMD - 09/28/2020 11:24 AM DIRECT SUPPORT STAFF MEMBER Therapy Screen, PT Entered On: 09/28/2020 12:34 [...] 09/28/2020 12:26 EST Electronically signed by Bailey, [facility] Conversion Security Flex Utility Officer Nedner at 03/08/2023 11:49 PM CDT documented in this encounter Plan of Treatment Not on file documented as of this encounter Visit Diagnoses Not on filedocumented in this encounter Care Teams Composing Machine Operator Relationship Specialty Start Date End Date Harris Quinn MD 1210 [facility] [address] [place] [address] PCP - General Adolescent Medicine 01/12/24 Jackie Prado, LEORA 1210 [facility] [address], [place] [address] Referring Physician Nurse Practitioner 01/12/24 documented as of this encounter
--- OUTSIDE RECORDS SUMMARY | 2025-07-28 12:08 | XMS_ITS | Encounter Summary ---
Author Organization [employer] ([place], [place], [place], [place]) Address [address] [place] [address] Care Team Providers Care Filenet Architect Name Role Phone Harris Quinn MD Primary Care Provider + [phone] Jackie Prado VETERINARY PARASITOLOGIST Unavailable + [phone] Encounter Details Date Type Department Care Team (Late st Contact Info) Description 09/29/2020 Transcribed Document [facility] Radiology [address] [place] [phone] Stu Liang MD [address] [place] [address] [address] [place] [address] Social History Tobacco Use Types Packs/Day Years Used Date Smoking Tobacco: Never Assessed Sex and Gender Information Value Date Recorded Sex Assigned at Male 06/20/2024 10:08 AM CDT Legal Sex Male 7:36 AM COMMUNITY REPRESENTATIVE Gender Identity Male 06/20/2024 10:08 AM CDT Sexual Orientation Not on file documented as of this encounter Miscellaneous Notes * Cerner Conversion Note - Stu Liang MD - 09/29/2020 11:01 AM EST Patient: ELIZA GUARDADO Age: 65 years Sex: Male : 1955 Associated Diagnoses: None Author: STU LINAG MD-INT Subjective PCP: Dr. Harris Quinn DOA: [...] mg, Oral, Daily Lovenox: 70 mg, SubCutaneous, [id number] MiraLax: 17 Gram, Oral, Daily, PRN: Constipation [...] Results Review Radiology Results (Last 48 hours) [id number] -- 09/27/2020 17:07 MRI Spine Lumbar WO [...] nerve root. There is contact of the R2zyoxl root in the lateral recess.L3-L4: There is [...] stenosis. This contacts and displaces the right A6rxurl root. There is mild right foraminal narrowing. [...] on filedocumented in this encounter Care Teams Filenet Architect Relationship Specialty Start Date End Date Harris Quinn MD 1210 [place] [facility] [address] [place] [address] PCP - General Adolescent Medicine 01/12/24 Jackie Prado, VETERINARY PARASITOLOGIST [address] [place] [facility] [address], [place] [address] Referring Physician Nurse Practitioner 01/12/24 documented as of this encounter
--- OUTSIDE RECORDS SUMMARY | 2025-07-28 12:08 | XMS_ITS | Encounter Summary ---
Author Organization [employer] ([place], [place], [place], [place]) Address [address] [place] [address] Care Team Providers Care Selling Specialist Name Role Phone Harris Quinn MD Primary Care Provider + [phone] Jackie Prado FLIGHT TEST DATA ACQUISITION TECHNICIAN Unavailable + [phone] Encounter Details Date Type Department Care Team (Late st Contact Info) Description 10/01/2020 Transcribed Document [facility] [place] Family Medicine [address] [place] [address] ProviderJerrica MD [address] [place] [address] Social History Tobacco Use Types Packs/Day Years Used Date Smoking Tobacco: Never Assessed Sex and Gender Information Value Date Recorded Sex Assigned at Male 06/20/2024 10:08 AM CDT Legal Sex Male 7:36 AM RAFTSMAN Gender Identity Male 06/20/2024 10:08 AM CDT Sexual Orientation Not on file documented as of this encounter Miscellaneous Notes * Cerner Conversion Note - Historical ProviderMD - 10/01/2020 11:39 AM RAFTSMAN Treatment Intervention, PT Entered On: 10/02/2020 15:18 [...] BURKETT Student-Physical Therapist - 10/02/2020 15:01 EST Data Lead Goals Mobility/Bed Mobility LTG PT Grid Goal [...] BURKETT Student-Physical Therapist - 10/02/2020 15:01 EST [place] PT Charges PT Therap. Exercise 15 min : 1 Gait Training Each 15 Min : 1 MARY BURKETT Student-Physical Therapist - 10/02/2020 15:01 EST documented in this encounter Plan of Treatment Not on file documented as of this encounter Visit Diagnoses Not on filedocumented in this encounter Care Teams Selling Specialist Relationship Specialty Start Date End Date Harris Quinn MD 1210 [place] [facility] [address] [place] [address] PCP - General Adolescent Medicine 01/12/24 Jackie Prado, FLIGHT TEST DATA ACQUISITION TECHNICIAN 1210 [place] [facility] [address], [place] [address] Referring Physician Nurse Practitioner 01/12/24 documented as of this encounter
--- OUTSIDE RECORDS SUMMARY | 2025-07-28 12:08 | XMS_ITS | Encounter Summary ---
Author Organization [employer] ([place], [place], [place], [place]) Address [address] [place] [address] Care Team Providers Care Retail Shift Supervisor Name Role Phone Harris Quinn MD Primary Care Provider + [phone] Jackie Prado HOUSECALLS NURSE Unavailable + [phone] Encounter Details Date Type Department Care Team (Late st Contact Info) Description 10/02/2020 Transcribed Document [facility] [place] Family Medicine [address] [place] [address] ProviderJerrica MD [address] [place] [address] Social History Tobacco Use Types Packs/Day Years Used Date Smoking Tobacco: Never Assessed Sex and Gender Information Value Date Recorded Sex Assigned at Male 06/20/2024 10:08 AM CDT Legal Sex Male 7:36 AM CONTRACT RECRUITER Gender Identity Male 06/20/2024 10:08 AM CDT Sexual Orientation Not on file documented as of this encounter Miscellaneous Notes * Cerner Conversion Note - Historical ProviderMD - 10/02/2020 5:00 PM CONTRACT RECRUITER Chart Check - Review Order Profile Entered On: 10/02/2020 19:28 EST Performed On: 10/02/2020 17:00 EST by Miko Perdomo, RN Chart Check All Active Orders Reviewed : Yes Miko Perdomo RN - 10/02/2020 19:28 EST Electronically signed by Bailey [facility] Conversion Vacuum Applicator Operator Cerner at 03/08/2023 11:28 PM CDT documented in this encounter Plan of Treatment Not on file documented as of this encounter Visit Diagnoses Not on filedocumented in this encounter Care Teams Retail Shift Supervisor Relationship Specialty Start Date End Date Harris Quinn MD 1210 [place] [facility] [address] [place] [address] PCP - General Adolescent Medicine 01/12/24 Jackie Prado, HOUSECALLS NURSE [address] [place] [address], [place] [address] Referring Physician Nurse Practitioner 01/12/24 documented as of this encounter
--- OUTSIDE RECORDS SUMMARY | 2025-07-28 12:08 | XMS_ITS | Encounter Summary ---
Author Organization [employer] ([place], [place], [place], [place]) Address [address] [place] [address] Care Team Providers Care Ip Paralegal Name Role Phone Harris Álvarez MD Primary Care Provider + [phone] Jackie Prado CLINICAL SUPPORT TECH Unavailable + [phone] Encounter Details Date Type Department Care Team (Late st Contact Info) Description 09/29/2020 Transcribed Document [facility] [place] Family Medicine [address] [place] [address] ProviderJerrica MD [address] [place] [address] Social History Tobacco Use Types Packs/Day Years Used Date Smoking Tobacco: Never Assessed Sex and Gender Information Value Date Recorded Sex Assigned at Male 06/20/2024 10:08 AM CDT Legal Sex Male 7:36 AM SUPERVISOR FILTER ASSEMBLY Gender Identity Male 06/20/2024 10:08 AM CDT Sexual Orientation Not on file documented as of this encounter Miscellaneous Notes * Cerner Conversion Note - Historical ProviderMD - 09/29/2020 3:41 PM SUPERVISOR FILTER ASSEMBLY Initial Discharge Planning Entered On: 09/29/2020 15:43 EST Performed On: 09/29/2020 15:41 EST by RICHIE GLASGOW RN-Pressure Dispatcher Initial Assessment I Previously Documented Living Environment [...] have PCP Listed? : Yes RICHIE GLASGOW RN-Pressure Dispatcher - 09/29/2020 15:41 EST Initial Assessment II Sensory and Motor Deficits : Weakness RICHIE GLASGOW RN-Pressure Dispatcher - 09/29/2020 15:41 EST Discharge Needs I Anticipated Discharge To, CM : Home with home health, nursing home facility Current Home Treatment/Equipment : Current Home Treatment/Equipment No qualifying data available. Post Acute/Home Treatments : Walker Documentation Status Complete : Yes RICHIE GLASGOW RN-Pressure Dispatcher - 09/29/2020 15:41 EST Discharge Needs II Professional Skilled Services : Professional Skilled Services No qualifying data available. RICHIE GLASGOW RN-Pressure Dispatcher - 09/29/2020 15:41 EST Narrative Note Narrative Note : 65yo male pt transferred from [facility] with c/o LBP. MRI--severe canal stenosis. NSY--pt going to OR tomorrow for L2-iliac fusion. DCP dependent upon how pt does with therapy after dc. CM will follow. RICHIE GLASGOW RN-Pressure Dispatcher - 09/29/2020 15:41 EST Electronically signed by [facility] Conversion Web Consultant Cerner at 03/08/2023 11:41 PM CDT documented in this encounter Plan of Treatment Not on file documented as of this encounter Visit Diagnoses Not on filedocumented in this encounter Care Teams Ip Paralegal Relationship Specialty Start Date End Date Harris Álvarez MD [address] [place] [address] [place] [address] PCP - General Adolescent Medicine 01/12/24 Jackie Prado, CLINICAL SUPPORT TECH [address] [place] [address] [place] [address] Referring Physician Nurse Practitioner 01/12/24 documented as of this encounter
--- OUTSIDE RECORDS SUMMARY | 2025-07-28 12:08 | XMS_ITS | Encounter Summary ---
Author Organization [employer] ([place], [place], [place], [place]) Address [address] [place] [address] Care Team Providers Care Construction Job Titles Name Role Phone Harris Quinn MD Primary Care Provider + [phone] Jackie Prado BOX LINER Unavailable + [phone] Encounter Details Date Type Department Care Team (Late st Contact Info) Description 10/01/2020 Transcribed Document [facility] Neurology - [facility] [address] [phone] John Cerda MD [address] [place] [address] [address] [place] [address] Social History Tobacco Use Types Packs/Day Years Used Date Smoking Tobacco: Never Assessed Sex and Gender Information Value Date Recorded Sex Assigned at Male 06/20/2024 10:08 AM CDT Legal Sex Male 7:36 AM REGULATORY SUBMISSIONS ASSOCIATE Gender Identity Male 06/20/2024 10:08 AM CDT [...] on filedocumented in this encounter Care Teams Construction Job Titles Relationship Specialty Start Date End Date Harris Quinn MD [address] [place] [facility] [address] [place] [address] PCP - General Adolescent Medicine 01/12/24 Jackie Prado, BOX LINER [address] [place] [address], [place] [address] Referring Physician Nurse Practitioner 01/12/24 documented as of this encounter
--- OUTSIDE RECORDS SUMMARY | 2025-07-28 12:08 | XMS_ITS | Encounter Summary ---
Author Organization [employer] ([place], [place], [place], [place]) Address [address] [place] [address] Care Team Providers Care Rn Utilization Management Um Name Role Phone Harris Quinn MD Primary Care Provider + [phone] Jackie Prado CREDIT VERIFIER Unavailable + [phone] Encounter Details Date Type Department Care Team (Late st Contact Info) Description 09/29/2020 Transcribed Document [facility] Neurology - [facility] [address] [phone] John Cerda MD [address] [place] [address] [address] [place] [address] Social History Tobacco Use Types Packs/Day Years Used Date Smoking Tobacco: Never Assessed Sex and Gender Information Value Date Recorded Sex Assigned at Male 06/20/2024 10:08 AM CDT Legal Sex Male 7:36 AM ORACLE DBA Gender Identity Male 06/20/2024 10:08 AM CDT [...] on filedocumented in this encounter Care Teams Rn Utilization Management Um Relationship Specialty Start Date End Date Harris Quinn MD [address] [place] [facility] [address] [place] [address] PCP - General Adolescent Medicine 01/12/24 Jackie Prado, CREDIT VERIFIER [address] [place] [address], [place] [address] Referring Physician Nurse Practitioner 01/12/24 documented as of this encounter
--- OUTSIDE RECORDS SUMMARY | 2025-07-28 12:08 | XMS_ITS | Encounter Summary ---
Author Organization [employer] ([place], [place], [place], [place]) Address [address] [place] [address] Care Team Providers Care Cco & President Name Role Phone Harris Quinn MD Primary Care Provider + [phone] Jackie Prado INSPECTOR PAWNSHOP DETAIL Unavailable + [phone] Encounter Details Date Type Department Care Team (Late st Contact Info) Description 09/28/2020 Transcribed Document [facility] [place] Family Medicine [address] [place] [address] ProviderJerrica MD [address] [place], [place] [address] Social History Tobacco Use Types Packs/Day Years Used Date Smoking Tobacco: Never Assessed Sex and Gender Information Value Date Recorded Sex Assigned at Male 06/20/2024 10:08 AM CDT Legal Sex Male 7:36 AM MONOGRAM TECHNICIAN Gender Identity Male 06/20/2024 10:08 AM CDT Sexual Orientation Not on file documented as of this encounter Miscellaneous Notes * Cerner Conversion Note - Historical ProviderMD - 09/28/2020 11:[address] OT Charges Entered On: 09/28/2020 13:26 EST Performed On: 09/28/2020 11:19 EST by JAYNE MENDOZA OTR/Sebastien Mcmanus OT Charges Screen For Inlayer Silver : 1 JAYNE MENDOZA OTR/Sebastien - 09/28/2020 13:24 EST documented in this encounter Plan of Treatment Not on file documented as of this encounter Visit Diagnoses Not on filedocumented in this encounter Care Teams Cco & President Relationship Specialty Start Date End Date Harris Quinn MD 12[address] [place] [facility] [address] [place] [address] PCP - General Adolescent Medicine 01/12/24 Jackie Prado, INSPECTOR PAWNSHOP DETAIL 1210 [place] [facility] [address], [place] [address] Referring Physician Nurse Practitioner 01/12/24 documented as of this encounter
--- OUTSIDE RECORDS SUMMARY | 2025-07-28 12:08 | XMS_ITS | Encounter Summary ---
Author Organization [employer] ([place], [place], [place], [place]) Address [address] [place] [address] Care Team Providers Care Snow Shoveler Name Role Phone Harris Quinn MD Primary Care Provider + [phone] Jackie Prado CONCRETE PRODUCTS MACHINE OPERATOR Unavailable + [phone] Encounter Details Date Type Department Care Team (Late st Contact Info) Description 10/02/2020 Transcribed Document [facility] [place] Family Medicine [address] [place] [address] ProviderJerrica MD [address] [place], [place] [address] Social History Tobacco Use Types Packs/Day Years Used Date Smoking Tobacco: Never Assessed Sex and Gender Information Value Date Recorded Sex Assigned at Male 06/20/2024 10:08 AM CDT Legal Sex Male 7:36 AM CAKE WINDER Gender Identity Male 06/20/2024 10:08 AM CDT Sexual Orientation Not on file documented as of this encounter Miscellaneous Notes * Cerner Conversion Note - Jerrica ProviderMD - 10/02/2020 1:49 PM CAKE WINDER On Going Discharge Planning Entered On: 10/02/2020 13:51 EST Performed On: 10/02/2020 13:49 EST by RICHIE GLASGOW RN-Customs InvestigatorDelivery Assistant Progress Note Discharge Arrangements : Patient Post-Acute [...] Meeting Medical Necessity : Yes RICHIE GLASGOW RN-Customs Investigator - 10/02/2020 13:49 EST Narrative Progress Note [...] CM will continue to follow. RICHIE GLASGOW RN-Customs Investigator - 10/01/20 15:17:37 Pt going to OR this afternoon for L2-iliac fusion. Met with pt at bedside to discuss DCP. Pt lives alone. He is retired from the [employer]. His daughter and family live about 1/4 mile away. He denies use of AD/HH/Rehab stays. He had been going to [facility] outpatient PT but with no relief. He states it is crowded there and will likely go to a different outpatient PT place if appropriate. CM will continue to follow. RICHIE GLASGOW RN-Customs Investigator - 09/30/20 11:43:19 RICHIE GLASGOW RN-Customs Investigator - 10/02/2020 13:49 EST documented in this encounter Plan of Treatment Not on file documented as of this encounter Visit Diagnoses Not on filedocumented in this encounter Care Teams Snow Shoveler Relationship Specialty Start Date End Date Harris Quinn MD [address] [place] [address] [place] [id number] PCP - General Adolescent Medicine 2/22/24 Jackie Prado, CONCRETE PRODUCTS MACHINE OPERATOR 1210 [place] [facility] [address], [facility] 2 A, [place], [facility]31 Referring Physician Nurse Practitioner 01/12/24 documented as of this encounter
--- OUTSIDE RECORDS SUMMARY | 2025-07-28 12:08 | XMS_ITS | Encounter Summary ---
Author Organization [employer] ([place], [place], [place], [place]) Address [address] [place] [address] Care Team Providers Care Hot Car Charger Name Role Phone Harris Quinn MD Primary Care Provider + [phone] Jackie Prado RN FIELD Unavailable + [phone] Encounter Details Date Type Department Care Team (Late st Contact Info) Description 10/01/2020 Transcribed Document [facility] Radiology [address] [place] [phone] Stu Liang MD [address] [place] [address] [address] [place] [address] Social History Tobacco Use Types Packs/Day Years Used Date Smoking Tobacco: Never Assessed Sex and Gender Information Value Date Recorded Sex Assigned at Male 06/20/2024 10:08 AM CDT Legal Sex Male 7:36 AM BOAT OUTFITTER Gender Identity Male 06/20/2024 10:08 AM CDT [...] nerve root. There is contact of the G7dokpa root in the lateral recess.L3-L4: There is [...] stenosis. This contacts and displaces the right Q4ntreq root. There is mild right foraminal narrowing. [...] Report DATE OF PROCEDURE: 09/30/2020 SURGEON: John Cedra MD PRIMARY CARE PHYSICIAN: Harris Quinn. PREOPERATIVE [...] Results Review Radiology Results (Last 48 hours) [id number] -- 09/29/2020 14:[address] in OR [...] on filedocumented in this encounter Care Teams Hot Car Charger Relationship Specialty Start Date End Date Harris Quinn MD [address] [place] [address] [place] [address] PCP - General Adolescent Medicine 01/12/24 Jackie Prado, RN FIELD [address] [place] [address], [place] [address] Referring Physician Nurse Practitioner 01/12/24 documented as of this encounter
--- OUTSIDE RECORDS SUMMARY | 2025-07-28 12:08 | XMS_ITS | Encounter Summary ---
Author Organization [employer] ([place], [place], [place], [place]) Address [address] [place] [address] Care Team Providers Care Black Topper Name Role Phone Harris Quinn MD Primary Care Provider + [phone] Jackie Prado TRAVEL MANAGER Unavailable + [phone] Encounter Details Date Type Department Care Team (Late st Contact Info) Description 09/28/2020 Transcribed Document [facility] [place] Family Medicine [address] [place] [address] ProviderJerrica MD [address] [place], [place] [id number] Social History Tobacco Use Types Packs/Day Years Used Date Smoking Tobacco: Never Assessed Sex and Gender Information Value Date Recorded Sex Assigned at Male 06/20/2024 10:08 AM CDT Legal Sex Male 7:36 AM FAST FOOD RESTAURANT MANAGER Gender Identity Male 06/20/2024 10:08 AM CDT Sexual Orientation Not on file documented as of this encounter Miscellaneous Notes * Cerner Conversion Note - Historical ProviderMD - 09/28/2020 11:24 AM FAST FOOD RESTAURANT MANAGER [facility] PT Charges Entered On: 09/28/2020 12:35 EST Performed On: 09/28/2020 11:24 EST by JOS PATEL PT [facility] PT Charges Physical Therapy Screen : 1 JOS PATEL PT - 09/28/2020 12:35 EST Electronically signed by Bailey [facility] Conversion De Icer Installer Cerner at 03/08/2023 11:29 PM CDT documented in this encounter Plan of Treatment Not on file documented as of this encounter Visit Diagnoses Not on filedocumented in this encounter Care Teams Black Topper Relationship Specialty Start Date End Date Harris Quinn MD [address] [place] [facility] [address] [place] [address] PCP - General Adolescent Medicine 01/12/24 Jackie Prado, TRAVEL MANAGER [address] [place] [facility] [address], [place] [address] Referring Physician Nurse Practitioner 01/12/24 documented as of this encounter
--- OUTSIDE RECORDS SUMMARY | 2025-07-28 12:08 | XMS_ITS | Encounter Summary ---
Author Organization [employer] ([place], [place], [place], [place]) Address [address] [place] [address] Care Team Providers Care Driver'S Education Instructor Name Role Phone Harris Quinn MD Primary Care Provider + [phone] Jakcie Prado BUSINESS ACCOUNT EXECUTIVE Unavailable + [phone] Encounter Details Date Type Department Care Team (Late st Contact Info) Description 09/29/2020 Transcribed Document [facility] [place] [address] [place] [address] ProviderJerrica MD [address] [place], [place] [id number] Social History Tobacco Use Types Packs/Day Years Used Date Smoking Tobacco: Never Assessed Sex and Gender Information Value Date Recorded Sex Assigned at Male 06/20/2024 10:08 AM CDT Legal Sex Male 7:36 AM AXLE BEARING 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 Gender Identity Male 06/20/2024 10:08 AM CDT Sexual Orientation Not on file documented as of this encounter Miscellaneous Notes * Cerner Conversion Note - Jerrica ProviderMD - 09/29/2020 2:46 PM AXLE BEARING POLISHER UM Authorization Entered On: 09/29/2020 14:47 EST Performed On: 09/29/2020 14:46 EST by AUSTIN KENNEY RN-Utilization Review Primary Insurance Authorization Authorization and Policy Numbers : Insurance 1 Health Plan: [employer] Policy Number: [id number] Authorization Number: Insurance Primary Name : [employer] Policy Number: [id number] Authorization Status-Primary : Awaiting callback Authorized Service [...] - 09/29/2020 14:46 EST Electronically signed by [facility], [facility] Conversion Continuous Mining Machine Lode Miner Cerner at 03/08/2023 11:42 PM CDT documented in this encounter Plan of Treatment Not on file documented as of this encounter Visit Diagnoses Not on filedocumented in this encounter Care Teams Driver'S Education Instructor Relationship Specialty Start Date End Date Harris Quinn MD 1210 [facility] [address] [place] [address] PCP - General Adolescent Medicine 01/12/24 Jackie Prado, BUSINESS ACCOUNT EXECUTIVE 1210 [facility] [address], [place] [address] Referring Physician Nurse Practitioner 01/12/24 documented as of this encounter
--- OUTSIDE RECORDS SUMMARY | 2025-07-28 12:08 | XMS_ITS | Encounter Summary ---
Author Organization [employer] ([place], [place], [place], [place]) Address [address] [place] [address] Care Team Providers Care Artificial Marble Worker Name Role Phone Harris Quinn MD Primary Care Provider + [phone] Jackie Prado COLLECTION TECHNICIAN Unavailable + [phone] Encounter Details Date Type Department Care Team (Late st Contact Info) Description 09/28/2020 Transcribed Document [facility] [place] [address] [place] [address] ProviderJerrica MD [address] [place], [place] [id number] Social History Tobacco Use Types Packs/Day Years Used Date Smoking Tobacco: Never Assessed Sex and Gender Information Value Date Recorded Sex Assigned at Male 06/20/2024 10:08 AM CDT Legal Sex Male 7:36 AM JUNIOR JAVA DEVELOPER Gender Identity Male 06/20/2024 10:08 AM CDT Sexual Orientation Not on file documented as of this encounter Miscellaneous Notes * Cerner Conversion Note - Jerrica ProviderMD - 09/28/2020 12:09 PM JUNIOR JAVA DEVELOPER UM Authorization Entered On: 09/28/2020 12:10 EST Performed On: 09/28/2020 12:09 EST by Rema Dawn Rn-Utilization Review Primary Insurance Authorization Authorization and Policy Numbers : Insurance 1 Health Plan: [employer] Policy Number: [id number] Authorization Number: Insurance Primary Name : JOAQUIM [employer] Policy Number: [id number] Authorized Service Begin Date-Primary : 09/27/2020 EST Authorization Comments-Primary : EM TO UR TEAM TO UPGRADE TO IP IF PATIENT HAS SURGERY Historical Authorization Comments-Primary : No Authorization Comments Found Rema Dawn Rn-Utilization Review - 09/28/2020 12:09 EST Electronically signed by Bailey [facility] Conversion Access Services Assistant Cerner at 03/08/2023 11:37 PM CDT documented in this encounter Plan of Treatment Not on file documented as of this encounter Visit Diagnoses Not on filedocumented in this encounter Care Teams Artificial Marble Worker Relationship Specialty Start Date End Date Harris Quinn MD 1210 [facility] [address] [place] [address] PCP - General Adolescent Medicine 01/12/24 Jackie Prado, COLLECTION TECHNICIAN 1210 [facility] [address], [place] [address] Referring Physician Nurse Practitioner 01/12/24 documented as of this encounter
--- OUTSIDE RECORDS SUMMARY | 2025-07-28 12:08 | XMS_ITS | Encounter Summary ---
Author Organization [employer] ([place], [place], [place], [place]) Address [address] [place] [address] Care Team Providers Care Slab Tripper Name Role Phone Harris Quinn MD Primary Care Provider + [phone] Jackie Prado LINE ASSIGNER Unavailable + [phone] Encounter Details Date Type Department Care Team (Late st Contact Info) Description 10/02/2020 Transcribed Document [facility] Neurology - [facility] [address] [id number] John Cerda MD [address] [place] [address] [address] [place] [address] Social History Tobacco Use Types Packs/Day Years Used Date Smoking Tobacco: Never Assessed Sex and Gender Information Value Date Recorded Sex Assigned at Male 06/20/2024 10:08 AM CDT Legal Sex Male 7:36 AM MANUFACTURERS REPRESENTATIVE Gender Identity Male 06/20/2024 10:08 AM [...] on filedocumented in this encounter Care Teams Slab Tripper Relationship Specialty Start Date End Date Harris Quinn MD [address] [place] [facility] [address] [place] [address] PCP - General Adolescent Medicine 01/12/24 Jackie Prado, LINE ASSIGNER [address] [place] [address], [place] [address] Referring Physician Nurse Practitioner 01/12/24 documented as of this encounter
--- OUTSIDE RECORDS SUMMARY | 2025-07-28 12:08 | XMS_ITS | Encounter Summary ---
Author Organization [employer] ([place], [place], [place], [place]) Address [address] [place] [address] Care Team Providers Care Burnisher Name Role Phone Harris Quinn MD Primary Care Provider + [phone] Jackie Prado HYDROELECTRIC PRODUCTION TECHNICIAN Unavailable + [phone] Encounter Details Date Type Department Care Team (Late st Contact Info) Description 10/02/[address] [facility] Radiology [address] [place] [id number] Stu Liang MD [address] [place] [address] [address] [place] [address] Social History Tobacco Use Types Packs/Day Years Used Date Smoking Tobacco: Never Assessed Sex and Gender Information Value Date Recorded Sex Assigned at Male 06/20/2024 10:08 AM CDT Legal Sex Male 7:36 AM SCHEDULING MANAGER Gender Identity Male 06/20/2024 10:08 AM [...] nerve root. There is contact of the [id number] root in the lateral recess.L3-L4: There is [...] stenosis. This contacts and displaces the right Z4kpems root. There is mild right foraminal narrowing. [...] mg, Oral, Daily Lovenox: 70 mg, SubCutaneous, V96PZsw MiraLax: 17 Gram, Oral, Daily, PRN: Constipation [...] Results Review Radiology Results (Last 48 hours) [id number] -- 09/29/2020 14:[address] in OR [...] on filedocumented in this encounter Care Teams Burnisher Relationship Specialty Start Date End Date Harris Quinn MD [address] [place] [address] [place] [address] PCP - General Adolescent Medicine 01/12/24 Jackie Prado, HYDROELECTRIC PRODUCTION TECHNICIAN [address] [place] [address], [facility] [address], [place], [place] [id number] Referring Physician Nurse Practitioner 01/12/24 documented as of this encounter
--- OUTSIDE RECORDS SUMMARY | 2025-07-28 12:08 | XMS_ITS | Encounter Summary ---
Author Organization [employer] ([place], [place], [place], [place]) Address [address] [place] [address] Care Team Providers Care Psychiatric Aide Name Role Phone Harris Quinn MD Primary Care Provider + [phone] Jackie Prado SAND HAULER Unavailable + [phone] Encounter Details Date Type Department Care Team (Late st Contact Info) Description 10/02/2020 Transcribed Document [facility] [place] [address] [place] [address] ProviderJerrica MD [address] [place], [place] [phone] Social History Tobacco Use Types Packs/Day Years Used Date Smoking Tobacco: Never Assessed Sex and Gender Information Value Date Recorded Sex Assigned at Male 06/20/2024 10:08 AM CDT Legal Sex Male 7:36 AM ADMINISTRATIVE SUPERVISOR Gender Identity Male 06/20/2024 10:08 AM CDT Sexual Orientation Not on file documented as of this encounter Miscellaneous Notes * Cerner Conversion Note - Jerrica ProviderMD - 10/02/2020 2:00 AM ADMINISTRATIVE SUPERVISOR Pain Assessment Entered On: 10/02/2020 3:37 EST Performed On: 10/02/2020 3:41 EST by Armando Armenta Rn Intervention Information: acetaminophen Performed by Armando Armenta Rn on 10/02/2020 02:41:00 EST acetaminophen,650mg Oral Pain Assessment Pain Scale Goal : 2 Armando Armenta Rn - 10/02/2020 3:37 EST Electronically signed by Bailey [facility] Conversion Press Shop Supervisor Cerner at 03/08/2023 11:29 PM CDT documented in this encounter Plan of Treatment Not on file documented as of this encounter Visit Diagnoses Not on filedocumented in this encounter Care Teams Psychiatric Aide Relationship Specialty Start Date End Date Harris Quinn MD [address] [place] [facility] [address] [place] [address] PCP - General Adolescent Medicine 01/12/24 Jackie Prado, SAND HAULER 1210 [place] [facility] [address], [place] [address] Referring Physician Nurse Practitioner 01/12/24 documented as of this encounter
--- OUTSIDE RECORDS SUMMARY | 2025-07-28 12:08 | XMS_ITS | Encounter Summary ---
Author Organization [employer] ([place], [place], [place], [place]) Address [address] [place] [address] Care Team Providers Care Road Supervisor Of Engines Name Role Phone Harris Quinn MD Primary Care Provider + [phone] Jackie Prado CLEAN UP PERSON Unavailable + [phone] Encounter Details Date Type Department Care Team (Late st Contact Info) Description 10/01/2020 Transcribed Document [facility] [place] [address] [place] [address] ProviderJerrica MD [address] [place], [place] [address] Social History Tobacco Use Types Packs/Day Years Used Date Smoking Tobacco: Never Assessed Sex and Gender Information Value Date Recorded Sex Assigned at Male 06/20/2024 10:08 AM CDT 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 Gender Identity Male 06/20/2024 10:08 AM CDT Sexual Orientation Not on file documented as of this encounter Miscellaneous Notes * Cerner Conversion Note - Historical ProviderMD - 10/01/2020 6:00 PM 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 Pain Assessment Entered On: 10/02/2020 3:37 EST Performed On: 10/01/2020 19:35 EST by Armando Armenta Rn Intervention Information: acetaminophen Performed by Jessica Boyer RN on 10/01/2020 18:35:00 EST acetaminophen,650mg Oral Pain Assessment Pain Scale Goal : 2 Armando Armenta Rn - 10/02/2020 3:37 EST Electronically signed by Bailey [facility] Conversion Bods Developer Cerner at 03/08/2023 11:50 PM CDT documented in this encounter Plan of Treatment Not on file documented as of this encounter Visit Diagnoses Not on filedocumented in this encounter Care Teams Road Supervisor Of Engines Relationship Specialty Start Date End Date Harris Quinn MD 12[address] [place] [facility] [address] [place] [address] PCP - General Adolescent Medicine 01/12/24 Jackie Prado, CLEAN UP PERSON 1210 [place] [facility] [address], [place] [address] Referring Physician Nurse Practitioner 01/12/24 documented as of this encounter
--- OUTSIDE RECORDS SUMMARY | 2025-07-28 12:08 | XMS_ITS | Encounter Summary ---
Author Organization [employer] ([place], [place], [place], [place]) Address [address] [place] [address] Care Team Providers Care Auto Driver Name Role Phone Harris Quinn MD Primary Care Provider + [phone] Jackie Prado SENIOR INFORMATION SECURITY ARCHITECT Unavailable + [phone] Encounter Details Date Type Department Care Team (Late st Contact Info) Description 10/01/[address] [facility] [place] Family Medicine [address] [place] [address] ProviderJerrica MD [address] [place], [place] [id number] Social History Tobacco Use Types Packs/Day Years Used Date Smoking Tobacco: Never Assessed Sex and Gender Information Value Date Recorded Sex Assigned at Male 06/20/2024 10:08 AM CDT Legal Sex Male 7:36 AM OCCUPATIONAL HEALTH SPECIALIST Gender Identity Male 06/20/2024 10:08 AM CDT Sexual Orientation Not on file documented as of this encounter Miscellaneous Notes * Cerner Conversion Note - Jerrica ProviderMD - 10/01/2020 6:00 AM OCCUPATIONAL HEALTH SPECIALIST Pain Assessment Entered On: 10/01/2020 6:49 EST Performed On: 10/01/2020 7:12 EST by Armando Armenta Rn Intervention Information: acetaminophen Performed by Armando Armenta Rn on 10/01/2020 06:12:00 EST acetaminophen,650mg Oral Pain Assessment Pain Scale Goal : 2 Armando Armenta Rn - 10/01/2020 6:49 EST Electronically signed by Bailey [facility] Conversion Factory Expert Cerner at 03/08/2023 11:45 PM CDT documented in this encounter Plan of Treatment Not on file documented as of this encounter Visit Diagnoses Not on filedocumented in this encounter Care Teams Auto Driver Relationship Specialty Start Date End Date Harris Quinn MD 12[address] [place] [facility] [address] [place] [address] PCP - General Adolescent Medicine 01/12/24 Jackie Prado, SENIOR INFORMATION SECURITY ARCHITECT 12[address] [place] [facility] [address], [place] [address] Referring Physician Nurse Practitioner 01/12/24 documented as of this encounter
--- OUTSIDE RECORDS SUMMARY | 2025-07-28 12:08 | XMS_ITS | Encounter Summary ---
Author Organization [employer] ([place], [place], [place], [place]) Address [address] [place] [address] Care Team Providers Care Cartridge Gauger Name Role Phone Harris Quinn MD Primary Care Provider + [phone] Jackie Prado EVENTS SOLUTIONS CONSULTANT Unavailable + [phone] Encounter Details Date Type Department Care Team (Late st Contact Info) Description 10/01/2020 Transcribed Document [facility] [place] [address] [place] [address] ProviderJerrica MD [address] [place], [place] [address] Social History Tobacco Use Types Packs/Day Years Used Date Smoking Tobacco: Never Assessed Sex and Gender Information Value Date Recorded Sex Assigned at Male 06/20/2024 10:08 AM CDT Legal Sex Male 7:36 AM COIN COLLECTOR Gender Identity Male 06/20/2024 10:08 AM CDT Sexual Orientation Not on file documented as of this encounter Miscellaneous Notes * Cerner Conversion Note - Jerrica ProviderMD - 10/01/2020 3:15 PM COIN COLLECTOR On Going Discharge Planning Entered On: 10/01/2020 15:17 EST Performed On: 10/01/2020 15:15 EST by RICHIE GLASGOW RN-Building CertifierPresident And Cmo Progress Note Discharge Arrangements : Patient Post-Acute [...] Meeting Medical Necessity : Yes RICHIE GLASGOW RN-Building Certifier - 10/01/2020 15:15 EST Narrative Progress Note [...] lives alone. He is retired from the [employer]. His daughter and family live about 1/4 mile away. He denies use of AD/HH/Rehab stays. He had been going to [facility] outpatient PT but with no relief. He states it is crowded there and will likely go to a different outpatient PT place if appropriate. CM will continue to follow. RICHIE GLASGOW RN-Building Certifier - 09/30/20 11:43:19 RICHIE GLASGOW RN-Building Certifier - 10/01/2020 15:15 EST Electronically signed by Bailey [facility] Conversion Aviation Technical Systems Specialist Cerner at 03/08/2023 11:40 PM CDT documented in this encounter Plan of Treatment Not on file documented as of this encounter Visit Diagnoses Not on filedocumented in this encounter Care Teams Cartridge Gauger Relationship Specialty Start Date End Date Harris Quinn MD [address] [place] [address] [place], [place] [address] PCP - General Adolescent Medicine 01/12/24 Jackie Prado, EVENTS SOLUTIONS CONSULTANT [address] [place] [address], [place] [address] Referring Physician Nurse Practitioner 01/12/24 documented as of this encounter
--- OUTSIDE RECORDS SUMMARY | 2025-07-28 12:08 | XMS_ITS | Encounter Summary ---
Author Organization [employer] ([place], [place], [place], [place]) Address [address] [place] [address] Care Team Providers Care Strategic Debriefing Officer Name Role Phone Harris Quinn MD Primary Care Provider + [phone] Jackie Prado HARD ROCK DRILL OPERATOR Unavailable + [phone] Encounter Details Date Type Department Care Team (Late st Contact Info) Description 09/27/2020 Transcribed Document [facility] [place] Family Medicine [address] [place] [address] ProviderJerrica MD [address] [place], [place] [address] Social History Tobacco Use Types Packs/Day Years Used Date Smoking Tobacco: Never Assessed Sex and Gender Information Value Date Recorded Sex Assigned at Male 06/20/2024 10:08 AM CDT Legal Sex Male 7:36 AM STUDENT AMBASSADOR Gender Identity Male 06/20/2024 10:08 AM CDT Sexual Orientation Not on file documented as of this encounter Miscellaneous Notes * Cerner Conversion Note - Jerrica ProviderMD - 09/27/2020 5:07 PM STUDENT AMBASSADOR Meds to Bed Enrollment Entered On: 09/29/2020 7:14 EST Performed On: 09/27/2020 17:07 EST by Magnus Ash THERMOFORMING MACHINE OPERATOR LEAD Meds to Bed Enrollment Patient Enrollment Decision: : Yes/enroll in meds to bed program Magnus Ash PHARMACY TECH LEAD - 09/29/2020 7:14 EST documented in this encounter Plan of Treatment Not on file documented as of this encounter Visit Diagnoses Not on filedocumented in this encounter Care Teams Strategic Debriefing Officer Relationship Specialty Start Date End Date Harris Quinn MD [address] [place] [facility] [address] [place] [address] PCP - General Adolescent Medicine 01/12/24 Jackie Prado, HARD ROCK DRILL OPERATOR 12[address] [place] [facility] [address], [place] [address] Referring Physician Nurse Practitioner 01/12/24 documented as of this encounter
--- OUTSIDE RECORDS SUMMARY | 2025-07-28 12:08 | XMS_ITS | Encounter Summary ---
Author Organization [employer] ([place], [place], [place], [place]) Address [address] [place] [address] Care Team Providers Care Reagent Tender Helper Name Role Phone Harris Quinn MD Primary Care Provider + [phone] Jackie Prado CALIBRATION LABORATORY TECHNICIAN Unavailable + [phone] Encounter Details Date Type Department Care Team (Late st Contact Info) Description 09/28/2020 Transcribed Document [facility] [place] [address] [place] [address] ProviderJerrica MD [address] [place], [place] [address] Social History Tobacco Use Types Packs/Day Years Used Date Smoking Tobacco: Never Assessed Sex and Gender Information Value Date Recorded Sex Assigned at Male 06/20/2024 10:08 AM CDT Legal Sex Male 7:36 AM PRODUCT DEVELOPMENT ACTUARY Gender Identity Male 06/20/2024 10:08 AM CDT Sexual Orientation Not on file documented as of this encounter Miscellaneous Notes * Cerner Conversion Note - Jerrica ProviderMD - 09/28/2020 12:09 PM PRODUCT DEVELOPMENT ACTUARY UM Authorization Entered On: 09/28/2020 12:09 EST Performed On: 09/28/2020 12:09 EST by Rema Dawn Rn-Utilization Review Primary Insurance Authorization Authorization and Policy Numbers : Insurance 1 Health Plan: [employer] Policy Number: [id number] Authorization Number: Insurance Primary Name : JOAQUIM [employer] Policy Number: [id number] Authorized Service Begin Date-Primary : 09/27/2020 EST Historical Authorization Comments-Primary : No Authorization Comments Found Rema Dawn, Rn-Utilization Review - 09/28/2020 12:09 EST Electronically signed by Bailey, [facility] Conversion Motor Rebuilder Cerner at 03/08/2023 11:33 PM CDT documented in this encounter Plan of Treatment Not on file documented as of this encounter Visit Diagnoses Not on filedocumented in this encounter Care Teams Reagent Tender Helper Relationship Specialty Start Date End Date Harris Quinn MD [address] [place] [facility] [address] [place] [address] PCP - General Adolescent Medicine 01/12/24 Jackie Prado, CALIBRATION LABORATORY TECHNICIAN 12[address] [place] [facility] [address], [place] [address] Referring Physician Nurse Practitioner 01/12/24 documented as of this encounter
--- OUTSIDE RECORDS SUMMARY | 2025-07-28 12:08 | XMS_ITS | Encounter Summary ---
Author Organization [employer] ([place], [place], [place], [place]) Address [address] [place] [address] Care Team Providers Care Customer Solutions Supervisor Name Role Phone Harris Quinn MD Primary Care Provider + [phone] Jackie Prado CARAMEL COLORING OPERATOR Unavailable + [phone] Encounter Details Date Type Department Care Team (Late st Contact Info) Description 10/02/2020 Transcribed Document [facility] [place] [address] [place] [address] ProviderJerrica MD [address] [place], [place] [id number] Social History Tobacco Use Types Packs/Day Years Used Date Smoking Tobacco: Never Assessed Sex and Gender Information Value Date Recorded Sex Assigned at Male 06/20/2024 10:08 AM CDT Legal Sex Male 7:36 AM CHIEF OPERATOR HYDROFORMER Gender Identity Male 06/20/2024 10:08 AM CDT Sexual Orientation Not on file documented as of this encounter Miscellaneous Notes * Cerner Conversion Note - Jerrica ProviderMD - 10/02/2020 6:00 AM CHIEF OPERATOR HYDROFORMER Pain Assessment Entered On: 10/02/2020 9:52 EST Performed On: 10/02/2020 7:42 EST by Miko Perdomo RN Intervention Information: acetaminophen Performed by Armando Armenta Rn on 10/02/2020 06:42:00 EST acetaminophen,650mg Oral Pain Assessment Pain Assessment : Follow-up assessment Pain Scale Goal : 2 Miko Perdomo RN - 10/02/2020 9:52 EST documented in this encounter Plan of Treatment Not on file documented as of this encounter Visit Diagnoses Not on filedocumented in this encounter Care Teams Customer Solutions Supervisor Relationship Specialty Start Date End Date Harris Quinn MD [address] [place] [facility] [address] [place] [address] PCP - General Adolescent Medicine 01/12/24 Jackie Prado, CARAMEL COLORING OPERATOR [address] [place] [facility] [address], [place] [address] Referring Physician Nurse Practitioner 01/12/24 documented as of this encounter
--- OUTSIDE RECORDS SUMMARY | 2025-07-28 12:08 | XMS_ITS | Encounter Summary ---
Author Organization [employer] ([place], [place], [place], [place]) Address [address] [place] [address] Care Team Providers Care Solar Development Engineer Name Role Phone Harris Álvarez MD Primary Care Provider + [phone] Jackie Prado Mitchell ORACLE OBIEE DEVELOPER Unavailable + [phone] Encounter Details Date Type Department Care Team (Late st Contact Info) Description 09/28/2020 Transcribed Document [facility] Neurology - [address] [id number] Troy Mcclure MD [address] [place] [address] [address] [place] [address] Social History Tobacco Use Types Packs/Day Years Used Date Smoking Tobacco: Never Assessed Sex and Gender Information Value Date Recorded Sex Assigned at Male 06/20/2024 10:08 AM CDT Legal Sex Male 7:36 AM METAL TANK ERECTOR Gender Identity Male 06/20/2024 10:08 AM [...] and tingling. 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 He was sent to [facility] for further pain control, and MR [...] mg, Oral, Daily Lovenox: 70 mg, SubCutaneous, [id number] MiraLax: 17 Gram, Oral, Daily, PRN: Constipation [...] mL inj 70 mg 0.7 mL, SubCutaneous, [id number] gabapentin 300 mg cap 300 mg 1 [...] At risk for sleep apnea / IMO [id number] / Confirmed, Active Problems (1) At risk [...] on filedocumented in this encounter Care Teams Solar Development Engineer Relationship Specialty Start Date End Date Harris Álvarez MD [address] [place] [facility] [address] [place] [address] PCP - General Adolescent Medicine 01/12/24 Jackie Prado, ORACLE OBIEE DEVELOPER [address] [place] [address], [place] [address] Referring Physician Nurse Practitioner 01/12/24 documented as of this encounter
--- OUTSIDE RECORDS SUMMARY | 2025-07-28 12:08 | XMS_ITS | Encounter Summary ---
Author Organization [employer] ([place], [place], [place], [place]) Address [address] [place] [address] Care Team Providers Care Program Control Analyst Name Role Phone Harris Quinn MD Primary Care Provider + [phone] Jackie Prado PROGRAM MANAGER SLP Unavailable + [phone] Encounter Details Date Type Department Care Team (Late st Contact Info) Description 10/01/2020 Transcribed Document [facility] Family Medicine [address] [place] [address] ProviderJerrica MD [address] [place] [address] Social History Tobacco Use Types Packs/Day Years Used Date Smoking Tobacco: Never Assessed Sex and Gender Information Value Date Recorded Sex Assigned at Male 06/20/2024 10:08 AM CDT Legal Sex Male 7:36 AM COMMERCIAL ROOFING ESTIMATOR Gender Identity Male 06/20/2024 10:08 AM CDT Sexual Orientation Not on file documented as of this encounter Miscellaneous Notes * Cerner Conversion Note - Historical ProviderMD - 10/01/2020 11:40 AM COMMERCIAL ROOFING ESTIMATOR Treatment Intervention, OT Entered On: 10/02/2020 14:36 [...] CHRISTIAN FONTANEZ OTR/L - 10/02/2020 14:34 EST Solar Tech Goals, OT Grooming LTG Grid Goal #1 [...] CHRISTIAN FONTANEZ OTR/Sebastien - 10/02/2020 14:34 EST Electronically signed by Brenda Avalos Conversion Janitorial Services Supervisor Cerner at 03/08/2023 11:31 PM CDT documented in this encounter Plan of Treatment Not on file documented as of this encounter Visit Diagnoses Not on filedocumented in this encounter Care Teams Program Control Analyst Relationship Specialty Start Date End Date Harris Quinn MD [address] [place] [address] [place] [address] PCP - General Adolescent Medicine 01/12/24 Jackie Prado, PROGRAM MANAGER SLP [address] [place] [address], [place] [address] Referring Physician Nurse Practitioner 01/12/24 documented as of this encounter
--- OUTSIDE RECORDS SUMMARY | 2025-07-28 12:08 | XMS_ITS | Encounter Summary ---
Author Organization [email or web address] ([place], [place], [place], [place]) Address [address] [place] [address] Care Team Providers Care Bark Grinder Name Role Phone Hraris Quinn MD Primary Care Provider + [phone] Jackie Prado STUDENT OUTREACH COORDINATOR Unavailable + [phone] Encounter Details Date Type Department Care Team (Late st Contact Info) Description 09/28/2020 Transcribed Document [facility] Radiology [address] [place] [id number] Stu Liang MD [address] [place] [address] [address] [place] [address] Social History Tobacco Use Types Packs/Day Years Used Date Smoking Tobacco: Never Assessed Sex and Gender Information Value Date Recorded Sex Assigned at Male 06/20/2024 10:08 AM CDT Legal Sex Male 7:36 AM AVIONICS SUPERVISOR Gender Identity Male 06/20/2024 10:08 AM [...] mg, Oral, Daily Lovenox: 70 mg, SubCutaneous, [id number] MiraLax: 17 Gram, Oral, Daily, PRN: Constipation [...] Results Review Radiology Results (Last 48 hours) [id number] -- 09/27/2020 17:07 MRI Spine Lumbar WO [...] nerve root. There is contact of the Z4ecpxa root in the lateral recess.L3-L4: There is [...] stenosis. This contacts and displaces the right M7nqbqj root. There is mild right foraminal narrowing. [...] on filedocumented in this encounter Care Teams Bark Grinder Relationship Specialty Start Date End Date Harris Quinn MD [address] [place] [facility] [address] [place] [address] PCP - General Adolescent Medicine 01/12/24 Jackie Prado, STUDENT OUTREACH COORDINATOR [address] [place] [address], [place] [address] Referring Physician Nurse Practitioner 01/12/24 documented as of this encounter
--- OUTSIDE RECORDS SUMMARY | 2025-07-28 12:08 | XMS_ITS | Encounter Summary ---
Author Organization [employer] ([place], [place], [place], [place]) Address [address] [place] [address] Care Team Providers Care Infrastructure Developer Name Role Phone Harris Quinn MD Primary Care Provider + [phone] Jackie Prado DRILLING RIG OPERATOR Unavailable + [phone] Encounter Details Date Type Department Care Team (Late st Contact Info) Description 09/30/2020 Transcribed Document [facility] [place] [address] [place] [address] ProviderJerrica MD [address] [place] [address] Social History Tobacco Use Types Packs/Day Years Used Date Smoking Tobacco: Never Assessed Sex and Gender Information Value Date Recorded Sex Assigned at Male 06/20/2024 10:08 AM CDT Legal Sex Male 7:36 AM SALES AND CUSTOMER RELATIONS REP Gender Identity Male 06/20/2024 10:08 AM CDT Sexual Orientation Not on file documented as of this encounter Miscellaneous Notes * Cerner Conversion Note - Jerrica ProviderMD - 09/30/2020 8:15 PM SALES AND CUSTOMER RELATIONS REP Pain Assessment Entered On: 10/02/2020 19:28 EST Performed On: 10/02/2020 12:12 EST by Miko Perdomo RN Intervention Information: oxyCODONE Performed by Miko Perdomo, RN on 10/02/2020 11:12:00 EST oxyCODONE,10mg Oral,Pain (Moderate 4-6) Pain Assessment Pain Assessment : Follow-up assessment Pain Scale Goal : 2 Miko Perdomo RN - 10/02/2020 19:28 EST documented in this encounter Plan of Treatment Not on file documented as of this encounter Visit Diagnoses Not on filedocumented in this encounter Care Teams Infrastructure Developer Relationship Specialty Start Date End Date Harris Quinn MD [address] [place] [facility] [address] [place] [address] PCP - General Adolescent Medicine 01/12/24 Jackie Prado, DRILLING RIG OPERATOR [address] [place] [address], [place] [address] Referring Physician Nurse Practitioner 01/12/24 documented as of this encounter
--- OUTSIDE RECORDS SUMMARY | 2025-07-28 12:08 | XMS_ITS | Encounter Summary ---
Author Organization [employer] ([place], [place], [place], [place]) Address [address] [place] [address] Care Team Providers Care Rat Farmer Name Role Phone Harris Quinn MD Primary Care Provider + [phone] Jackie Prado ACTIVITIES OFFICER Unavailable + [phone] Encounter Details Date Type Department Care Team (Late st Contact Info) Description 09/28/2020 Transcribed Document [facility] [place] [address] [place] [address] ProviderJerrica MD [address] [place], [place] [id number] Social History Tobacco Use Types Packs/Day Years Used Date Smoking Tobacco: Never Assessed Sex and Gender Information Value Date Recorded Sex Assigned at Male 06/20/2024 10:08 AM CDT Legal Sex Male 7:36 AM EMBEDDED LINUX 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 Gender Identity Male 06/20/2024 10:08 AM CDT Sexual Orientation Not on file documented as of this encounter Miscellaneous Notes * Cerner Conversion Note - Historical ProviderMD - 09/28/2020 11:19 AM EMBEDDED LINUX ENGINEER Therapy Screen, OT Entered On: 09/28/2020 13:25 [...] 09/28/2020 13:24 EST Electronically signed by Bailey, [facility] Conversion Engineer Sergeant Cerner at 03/08/2023 11:25 PM CDT documented in this encounter Plan of Treatment Not on file documented as of this encounter Visit Diagnoses Not on filedocumented in this encounter Care Teams Rat Farmer Relationship Specialty Start Date End Date Harris Quinn MD [address] [facility] [address] [place] [address] PCP - General Adolescent Medicine 01/12/24 Jackie Prado, ACTIVITIES OFFICER [address] [facility] [address], [place] [address] Referring Physician Nurse Practitioner 01/12/24 documented as of this encounter
--- OUTSIDE RECORDS SUMMARY | 2025-07-28 12:08 | XMS_ITS | Encounter Summary ---
Author Organization [employer] ([place], [place], [place], [place]) Address [address] [place] [address] Care Team Providers Care Field Crop Ii Farmworker Name Role Phone Harris Quinn MD Primary Care Provider + [phone] Jackie Prado SENIOR SERVICE AIDE Unavailable + [phone] Encounter Details Date Type Department Care Team (Late st Contact Info) Description 10/01/2020 Transcribed Document [facility] Family Medicine [address] [place] [address] ProviderJerrica MD [address] [place], [place] [address] Social History Tobacco Use Types Packs/Day Years Used Date Smoking Tobacco: Never Assessed Sex and Gender Information Value Date Recorded Sex Assigned at Male 06/20/2024 10:08 AM CDT Legal Sex Male 7:36 AM CLERICAL AIDE TEACHER Gender Identity Male 06/20/2024 10:08 AM CDT Sexual Orientation Not on file documented as of this encounter Miscellaneous Notes * Cerner Conversion Note - Jerrica ProviderMD - 10/01/2020 10:00 AM CLERICAL AIDE TEACHER Pain Assessment Entered On: 10/01/2020 14:41 EST [...] version of the form. Electronically signed by [facility], [facility] Conversion Visitor Services Specialist Cerner at 03/08/2023 11:31 PM CDT documented in this encounter Plan of Treatment Not on file documented as of this encounter Visit Diagnoses Not on filedocumented in this encounter Care Teams Field Crop Ii Farmworker Relationship Specialty Start Date End Date Harris Quinn MD [address] [place] [facility] [address] [place] [address] PCP - General Adolescent Medicine 01/12/24 Jackie Prado, SENIOR SERVICE AIDE [address] [place] [facility] [address], [place] [address] Referring Physician Nurse Practitioner 01/12/24 documented as of this encounter
--- OUTSIDE RECORDS SUMMARY | 2025-07-28 12:09 | XMS_ITS | Encounter Summary ---
Author Organization [employer] ([place], [place], [place], [place]) Address [address] [place] [address] Care Team Providers Care Neurosurgery Physician Name Role Phone Harris Quinn MD Primary Care Provider + [phone] Jackie Prado GEOSCIENCE TECHNICIAN Unavailable + [phone] Encounter Details Date Type Department Care Team (Late st Contact Info) Description 10/01/2020 Transcribed Document [facility] [place] [address] [place] [address] ProviderJerrica MD [address] [place], [place] [id number] Social History Tobacco Use Types Packs/Day Years Used Date Smoking Tobacco: Never Assessed Sex and Gender Information Value Date Recorded Sex Assigned at Male 06/20/2024 10:08 AM CDT Legal Sex Male 7:36 AM SUPERVISOR LEAD REFINERY Gender Identity Male 06/20/2024 10:08 AM CDT Sexual Orientation Not on file documented as of this encounter Miscellaneous Notes * Cerner Conversion Note - Jerrica ProviderMD - 10/01/2020 2:00 AM SUPERVISOR LEAD REFINERY Pain Assessment Entered On: 10/01/2020 2:35 EST Performed On: 10/01/2020 2:55 EST by Armando Armenta Rn Intervention Information: acetaminophen Performed by Armando Armenta Rn on 10/01/2020 01:55:00 EST acetaminophen,650mg Oral Pain Assessment Pain Scale Goal : 2 Armando Armenta Rn - 10/01/2020 2:35 EST Electronically signed by Bailey [facility] Conversion Cooking Appliance Repair Technician Cerner at 03/08/2023 11:24 PM CDT documented in this encounter Plan of Treatment Not on file documented as of this encounter Visit Diagnoses Not on filedocumented in this encounter Care Teams Neurosurgery Physician Relationship Specialty Start Date End Date Harris Quinn MD [address] [place] [facility] [address] [place] [address] PCP - General Adolescent Medicine 01/12/24 Jackie Prado, GEOSCIENCE TECHNICIAN [address] [place] [facility] [address], [place] [address] Referring Physician Nurse Practitioner 01/12/24 documented as of this encounter
--- OUTSIDE RECORDS SUMMARY | 2025-07-28 12:09 | XMS_ITS | Encounter Summary ---
Author Organization [employer] ([place], [place], [place], [place]) Address [address] [place] [address] Care Team Providers Care Instructional Coordinator Name Role Phone Harris Álvarez MD Primary Care Provider + [phone] Jackie Prado STATISTICAL DEVELOPER Unavailable + [phone] Encounter Details Date Type Department Care Team (Late st Contact Info) Description 10/03/[address] [facility] Family Medicine [address] [place] [address] ProviderJerrica MD [address] [place] [address] Social History Tobacco Use Types Packs/Day Years Used Date Smoking Tobacco: Never Assessed Sex and Gender Information Value Date Recorded Sex Assigned at Male 06/20/2024 10:08 AM CDT Legal Sex Male 7:36 AM COOK HOUSE SUPERVISOR Gender Identity Male 06/20/2024 10:08 AM CDT Sexual Orientation Not on file documented as of this encounter Miscellaneous Notes * Cerner Conversion Note - Jerrica Clayton MD - 10/03/2020 2:25 PM COOK HOUSE SUPERVISOR [facility] [place] [address] ELIZA GUARDADO :1955 Visit Time:09/29/2020 Your [...] Please STOP taking these home medications: 1. Millry (Acetaminophen -Hydrocodone) 2. Diclofenac Diet after Discharge: [...] 11:30 AM EST Comments Please go to [facility] [address] at 10:30 for x-rays before going to your appointment at 11:30. Where: [address] [place] [address] [address]- Tastemaker (1) Follow Up with TROY MCCLURE When 10/20/2020 03:30 PM EST Comments Appointment has been made for staple removal Where: [address] [place] [address] [address]- Tastemaker (1) Medications What How Much When Instructions Next Dose acetaminophen-oxyCODONE (Percocet 7.5/ 325 oral tablet) 1 Tablet(s) Oral Every 4 Hours as needed for for pain Printed Prescription apixaban (Eliquis 5 mg oral tablet) See instructions 2 tab oral twice daily for 7 days then 1 tab oral twice daily. [facility] as directed cyclobenzaprine (cyclobenzaprine 10 mg oral tablet) 1 Tablet(s) Oral Three Times A Day as needed for as needed for spasm Refills: 1 Printed Prescription as needed dexAMETHasone (dexAMETHasone 2 mg oral tablet) See instructions 1 tab oral twice daily x 3 days, then 1 tablet daily x 3 days, then stop Pickup at [facility] tonight amLODIPine (amLODIPine 5 mg oral [...] Oral Every Day in am Pharmacy Information [facility] [place]: [address] [facility] [address] [place], [place] [id number] [phone] Take your medications faithfully. Do NOT skip [...] tells you to take them. ? Taking jvee-diw-nrewhxl medicines, vitamins, herbs, and supplements. ??? You [...] 03/02/2012 Document Revised: 01/03/2020 Document Reviewed: 02/21/2018 [employer] Patient Education ?? 2020 Melodeo. dexamethasone (oral) (dex a METH a sone) [...] expected to produce life threatening symptoms. terminal make up operator use of high doses can lead [...] may report side effects to FDA at 2-422-NTG-2135. What other drugs will affect dexamethasone? Sometimes [...] may affect dexamethasone. This includes prescription and yxpv-inh-mtwrchf medicines, vitamins, and herbal products. Not all [...] to ensure that the information provided by [employer]. ('[employer]') is accurate, up-to-date, and complete, but no guarantee is made to that effect. Drug information contained herein may be time sensitive. [employer] information has been compiled for use by healthcare practitioners and consumers in the [place] and therefore [employer] does not warrant that uses outside of the [place] are appropriate, unless specifically indicated otherwise. [employer] drug information does not endorse drugs, diagnose patients or recommend therapy. [employer] drug information is an informational resource designed [...] effective or appropriate for any given patient. [employer] does not assume any responsibility for any aspect of healthcare administered with the aid of information [employer] provides. The information contained herein is not intended to cover all possible uses, directions, precautions, warnings, drug interactions, allergic reactions, or adverse effects. If you have questions about the drugs you are taking, check with your doctor, nurse or pharmacist. Copyright 0037-0743 [employer]. Version: 7.01. Revision Date: 03/15/2018. apixaban (a PIX a ban) Luis Antonio What is the most important information I should know about apixaban? Apixaban increases your risk of severe or fatal bleeding, especially if you take certain medicines at the same time (including some zgmg-srg-kyknmip medicines). It is very important to tell [...] may report side effects to FDA at 2-288-KTS-4248. What other drugs will affect apixaban? Sometimes it is not safe to use certain medications at the same time. Some drugs can affect your blood levels of other drugs you take, which may increase side effects or make the medications less effective. Many other drugs (including some fzzh-hlm-ipphvog medicines) can increase your risk of bleeding [...] ?? an NSAID (nonsteroidal anti-inflammatory drug) used chcf. This list is not complete and many other drugs may affect apixaban. This includes prescription and tuja-zny-ridqfsl medicines, vitamins, and herbal products. Not all [...] to ensure that the information provided by [employer]. ('[employer]') is accurate, up-to-date, and complete, but no guarantee is made to that effect. Drug information contained herein may be time sensitive. [employer] information has been compiled for use by healthcare practitioners and consumers in the [place] and therefore [employer] does not warrant that uses outside of the [place] are appropriate, unless specifically indicated otherwise. [employer]'s drug information does not endorse drugs, diagnose patients or recommend therapy. [employer] drug information is an informational resource designed [...] effective or appropriate for any given patient. [employer] does not assume any responsibility for any aspect of healthcare administered with the aid of information [employer] provides. The information contained herein is not intended to cover all possible uses, directions, precautions, warnings, drug interactions, allergic reactions, or adverse effects. If you have questions about the drugs you are taking, check with your doctor, nurse or pharmacist. Copyright 6047-8896 [employer]. Version: 4.01. Revision Date: 05/11/2019. acetaminophen and [...] may report side effects to FDA at 3-439-MOM-5851. What other drugs will affect acetaminophen and [...] affect acetaminophen and oxycodone, including prescription and xxfo-ohy-tskinvw medicines, vitamins, and herbal products. Not all [...] to ensure that the information provided by [employer]. ('[employer]') is accurate, up-to-date, and complete, but no guarantee is made to that effect. Drug information contained herein may be time sensitive. [employer] information has been compiled for use by healthcare practitioners and consumers in the [place] and therefore [employer] does not warrant that uses outside of the [place] are appropriate, unless specifically indicated otherwise. [employer]'s drug information does not endorse drugs, diagnose patients or recommend therapy. [employer] drug information is an informational resource designed [...] effective or appropriate for any given patient. [facility] does not assume any responsibility for any aspect of healthcare administered with the aid of information [facility] provides. The information contained herein is not intended to cover all possible uses, directions, precautions, warnings, drug interactions, allergic reactions, or adverse effects. If you have questions about the drugs you are taking, check with your doctor, nurse or pharmacist. Copyright 8918-9842 [employer]. Version: .. Revision Date: 12/12/2019. cyclobenzaprine (janel [...] may report side effects to FDA at 2-289-PLJ-1839. What other drugs will affect cyclobenzaprine? Using [...] drugs may affect cyclobenzaprine, including prescription and rdbr-rmb-qezefbd medicines, vitamins, and herbal products. Not all [...] to ensure that the information provided by [employer]. ('[employer]') is accurate, up-to-date, and complete, but no guarantee is made to that effect. Drug information contained herein may be time sensitive. [employer] information has been compiled for use by healthcare practitioners and consumers in the [place] and therefore [employer] does not warrant that uses outside of the [place] are appropriate, unless specifically indicated otherwise. [employer] drug information does not endorse drugs, diagnose patients or recommend therapy. [employer] drug information is an informational resource designed [...] effective or appropriate for any given patient. [employer] does not assume any responsibility for any aspect of healthcare administered with the aid of information [employer] provides. The information contained herein is not intended to cover all possible uses, directions, precautions, warnings, drug interactions, allergic reactions, or adverse effects. If you have questions about the drugs you are taking, check with your doctor, nurse or pharmacist. Copyright 3537-7406 [employer]. Version: 5.01. Revision Date: 08/16/2018. Emergency Awareness [...] Assistance with quitting is available by contacting 8-156-IFNL-NOW. This is a free resource providing counseling, [...] range between ( 0.0 and 7.0 ) Izard #: 0.50 K/uL -- Normal range between ( 0.16 and 1.00 ) Eos #: 0.00 x10(3)/uL -- Normal range between ( 0.00 and 0.80 ) Izard %: 4.9 % -- Normal range between [...] was given the opportunity to ask questions. Patient/Engineering Programmer Name: Patient/Engineering Programmer Signature: Relationship to Patient: Clinician/Hospital Engineering Programmer Signature: Date: Electronically signed by Bailey, [facility] Conversion Journalist Cerner at 03/08/2023 11:33 PM CDT documented in this encounter Plan of Treatment Not on file documented as of this encounter Visit Diagnoses Not on filedocumented in this encounter Care Teams Instructional Coordinator Relationship Specialty Start Date End Date Harris Álvarez MD [address] [place] [facility] [address] [place] [address] PCP - General Adolescent Medicine 01/12/24 Jackie Prado, LEORA [address] [facility] [address], [place] [address] Referring Physician Nurse Practitioner 01/12/24 documented as of this encounter
--- OUTSIDE RECORDS SUMMARY | 2025-07-28 12:09 | XMS_ITS | Clinical Summary ---
Author Organization [employer] ([place], [place], [place], [place]) Address [address] [address] Care Team Providers Care Computer Operations Specialist Name Role Phone Harris Quinn MD Primary Care Provider + [phone] Jackie Prado BLEACH TESTER Unavailable + [phone] Allergies No known active allergies Medications * [...] mg total) by mouth daily. Active omega 5-zfe-emd-fish oil capsule Take 1 capsule (1,000 mg [...] CDT Legal Sex Male 7:36 AM AERONAUTICAL INSPECTOR Gender Identity Male 06/20/2024 10:08 AM CDT [...] (2 of 2 - PCV) 10/08/2022 10/08/2021 Falls Risk Screening 11/21/2024 COVID-19 VACCINE (4 - 2024-2 6 season) 2025 11/04/2021, 02/25/2021, 01/23/2021 Influenza Vaccine (#1) 2025 , 10/11/2022, 10/08/2021, Additional history exists Tobacco Cessation Counseling and Screening (12+) 09/27/2025 09/27/2024 DTAP/TDAP/TD VACCINES (2 - T d or Tdap) 07/21/2026 07/21/2016 Insurance MEDICARE PART A B BLUE CROSS/BLUE SHIELD Care Teams Computer Operations Specialist Relationship Specialty Start Date End Date Harris Quinn MD [address] [facility] [address] [place] [address] PCP - General Adolescent Medicine 01/12/24 Jackie Prado, BLEACH TESTER [address] [facility] [address], [place] [address] Referring Physician Nurse Practitioner 01/12/24
--- OUTSIDE RECORDS SUMMARY | 2025-07-28 12:09 | XMS_ITS | Encounter Summary ---
Author Organization [employer] ([place], [place], [place], [place]) Address [address] [place] [address] Care Team Providers Care Wound Care Center Consultant Name Role Phone Harris Quinn MD Primary Care Provider + [phone] Jackie Prado TEST AUTOMATION ARCHITECT Unavailable + [phone] Encounter Details Date Type Department Care Team (Late st Contact Info) Description 09/30/2020 Transcribed Document [facility] [place] [address] [place] [address] ProviderJerrica MD [address] [place] [address] Social History Tobacco Use Types Packs/Day Years Used Date Smoking Tobacco: Never Assessed Sex and Gender Information Value Date Recorded Sex Assigned at Male 06/20/2024 10:08 AM CDT Legal Sex Male 7:36 AM LEAD 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 Gender Identity Male 06/20/2024 10:08 AM CDT Sexual Orientation Not on file documented as of this encounter Miscellaneous Notes * [employer]ner Conversion Note - Jerrica ProviderMD - 09/30/2020 3:02 PM LEAD TECHNICAL WRITER Procedural Documentation Entered On: 09/30/2020 15:03 EST [...] Anesthesiologist Procedure Case Attendee Role 2 : market asset protection manager Case Attendee 2 : TIM Guardado RN [...] - 09/30/2020 15:02 EST Electronically signed by [facility] Conversion Road Test Examiner Cerner at 03/08/2023 11:49 PM CDT documented in this encounter Plan of Treatment Not on file documented as of this encounter Visit Diagnoses Not on filedocumented in this encounter Care Teams Wound Care Center Consultant Relationship Specialty Start Date End Date Harris Quinn MD [address] [place] [facility] [address] [place] [address] PCP - General Adolescent Medicine 01/12/24 Jackie Prado, TEST AUTOMATION ARCHITECT [address] [place] [address] [place], [place] [address] Referring Physician Nurse Practitioner 01/12/24 documented as of this encounter
--- OUTSIDE RECORDS SUMMARY | 2025-07-28 12:09 | XMS_ITS | Encounter Summary ---
Author Organization [employer] ([place], [place], [place], [place]) Address [address] [place] [address] Care Team Providers Care Clothes Designer Name Role Phone Harris Quinn MD Primary Care Provider + [phone] LIGHT SERVICER SUPERVISOR Unavailable + [phone] Encounter Details Date Type Department Care Team (Late st Contact Info) Description 10/01/2020 Transcribed Document [facility] [place] Family Medicine [address] [place] [address] ProviderJerrica MD [address] [place], [place] [id number] Social History Tobacco Use Types Packs/Day Years Used Date Smoking Tobacco: Never Assessed Sex and Gender Information Value Date Recorded Sex Assigned at Male 06/20/2024 10:08 AM CDT Legal Sex Male 7:36 AM DIRECTOR FACILITIES MAINTENANCE Gender Identity Male 06/20/2024 10:08 AM CDT Sexual Orientation Not on file documented as of this encounter Miscellaneous Notes * [employer]ner Conversion Note - Jerrica ProviderMD - 10/01/2020 12:47 PM DIRECTOR FACILITIES MAINTENANCE Patient: ELIZA GUARDADO Age: 65 years Sex: Male : 1955 Associated Diagnoses: None Author: TISHA RENEE, [facility] Mr. Guardado is a [...] on filedocumented in this encounter Care Teams Clothes Designer Relationship Specialty Start Date End Date Harris Quinn MD [address] [facility] [address] [place] [address] PCP - General Adolescent Medicine 01/12/24 Jackie Prado, STREET LIGHT SERVICER SUPERVISOR [address] [facility] [address] [place] [address] Referring Physician Nurse Practitioner 01/12/24 documented as of this encounter
--- OUTSIDE RECORDS SUMMARY | 2025-07-28 12:09 | XMS_ITS | Encounter Summary ---
Author Organization [employer] ([place], [place], [place], [place]) Address [address] [place] [address] Care Team Providers Care Genetic Counselor Name Role Phone Harris Quinn MD Primary Care Provider + [phone] Jackie Prado ELEVATOR TENDER Unavailable + [phone] Encounter Details Date Type Department Care Team (Late st Contact Info) Description 10/03/2020 Transcribed Document [facility] [place] Family Medicine [address] [place] [address] ProviderJerrica MD [address] [place], [place] [id number] Social History Tobacco Use Types Packs/Day Years Used Date Smoking Tobacco: Never Assessed Sex and Gender Information Value Date Recorded Sex Assigned at Male 06/20/2024 10:08 AM CDT Legal Sex Male 7:36 AM HEAD OF BUSINESS DEVELOPMENT Gender Identity Male 06/20/2024 10:08 AM CDT Sexual Orientation Not on file documented as of this encounter Miscellaneous Notes * [employer]ner Conversion Note - Jerrica Clayton MD - 10/03/2020 2:21 PM HEAD OF BUSINESS DEVELOPMENT Patient Education Materials Follows: Spinal Fusion, Adult [...] tells you to take them. ? Taking [id number]-[id number] medicines, vitamins, herbs, and supplements. ??? You [...] 03/02/2012 Document Revised: 01/03/2020 Document Reviewed: 02/21/2018 [email or web address] Patient Education ? 2019 [employer] documented in this encounter Plan of Treatment Not on file documented as of this encounter Visit Diagnoses Not on filedocumented in this encounter Care Teams Genetic Counselor Relationship Specialty Start Date End Date Harris Quinn MD [address] [facility] [address] [place] [address] PCP - General Adolescent Medicine 01/12/24 Jackie Prado, ELEVATOR TENDER [address] [facility] [address] [place], [place] [address] Referring Physician Nurse Practitioner 01/12/24 documented as of this encounter
--- OUTSIDE RECORDS SUMMARY | 2025-07-28 12:09 | XMS_ITS | Encounter Summary ---
Author Organization [employer] ([place], [place], [place], [place]) Address [address] [place] [address] Care Team Providers Care Supervisor Inspection Department Name Role Phone Harris Quinn MD Primary Care Provider + [phone] Jackie Prado MESSENGER FLOORPERSON Unavailable + [phone] Encounter Details Date Type Department Care Team (Late st Contact Info) Description 09/30/2020 Transcribed Document [facility] Family Medicine [address] [place] [address] ProviderJerrica MD [address] [place], [place] [address] Social History Tobacco Use Types Packs/Day Years Used Date Smoking Tobacco: Never Assessed Sex and Gender Information Value Date Recorded Sex Assigned at Male 06/20/2024 10:08 AM CDT Legal Sex Male 7:36 AM KNITTING INSPECTOR Gender Identity Male 06/20/2024 10:08 AM CDT Sexual Orientation Not on file documented as of this encounter Miscellaneous Notes * Cerner Conversion Note - Jerrica ProviderMD - 09/30/2020 5:03 PM KNITTING INSPECTOR [facility] Main OR IntraOp Summary Primary Physician: TROY MCCLURE MD-U Finalized Date/Time: 10/02/20 07:54:38 Pt. Name: ELIZA LAMBERT./Sex: 1955 Male Med Rec #: [id number] Physician: HERMINIA KNOWLES MD-INT Financial #: [id number] Pt. Type: I Room/Bed: 650/1 Admit/Disch: 11/09/20 14:34:00 - Institution: [facility] IntraOp Case Attendance Entry 1 Entry 2 Entry 3 Case Attendee TROY MCCLURE BARRETT, LAURIE, MD-CHRISTIAN NIEVES APRN MD-LUISA Role Performed Surgeon/Proceduralist, Anesthesiologist of PUBLIC RELATIONS COUNSELOR/Nurse Pound Attendant First Record Time In 09/30/20 16:16:00 09/30/20 [...] Vanesa Webster Rn LONG, PAULA R., [facility] RN Role Performed Commissioner Conservation Of Resources, First Scrub, First Commissioner Conservation Of Resources, Second Time In 09/30/20 16:16:00 09/30/20 16:16:00 [...] Aysha Morel Hensley, Karen, SCHNELLE, JENNIFER, ALEC Videotape Operator Diagnostic Dried Yeast Supervisor Role Performed Implementation Consultant Implementation Consultant Scrub, Second Time In 09/30/20 16:48:00 09/30/20 [...] SC ARI MCCANN MD-RADHA TECH Role Performed Commissioner Conservation Of Resources, Second Scrub, First Anesthesiologist Time In 09/30/20 17:20:00 09/30/20 18:30:00 09/30/20 17:44:00 Time Out 09/30/20 17:35:00 09/30/20 20:05:00 09/30/20 20:05:00 Procedure Lumbar Fusion Posterior Lumbar Fusion Posterior Lumbar Fusion Posterior 3 Level 3 Level 3 Level Other Attendee RELIEF TRAVELER Superficial Wound Closed By: Last Modified By: Vanesa Webster Rn Parker, Gwendolyn, Rn Parker, Gwendolyn, Rn 09/30/20 20:08:20 09/30/20 20:08:20 09/30/20 20:08:20 [facility] IntraOp Case Attendance Audit 09/30/20 20:08:20 Base Ply Hand: VALERY Modifier: CHAVEZOLYKALEB 1 <+> Time Out [...] Lumbar Fusion Posterior 3 Level 09/30/20 19:48:33 Base Ply Hand: DENNISNPARKER Modifier: GWENDOLYNPARKER 3 <+> Time Out 3 <*> Procedure Lumbar Fusion Posterior 3 Level <+> 12 Case Attendee <+> 12 Role Performed <+> 12 Time In <+> 12 Procedure 09/30/20 19:02:23 Base Ply Hand: DENNISNPARKER Modifier: GWENDOLYNPARKER 10 <+> Time Out 10 <*> Procedure Lumbar Fusion Posterior 3 Level 09/30/20 18:52:49 Base Ply Hand: CHAVEZOLYNPARKER Modifier: GWENDOLYNPARKER 5 <+> Time Out 5 <*> Procedure Lumbar Fusion Posterior 3 Level <+> 11 Case Attendee <+> 11 Role Performed <+> 11 Time In <+> 11 Procedure <+> 11 Other Attendee 09/30/20 17:52:28 Base Ply Hand: DENNISNPARKER Modifier: YANAENDOLYNPARKER <+> 1 Procedure 2 [...] Lumbar Fusion Posterior 3 Level 09/30/20 17:22:03 Base Ply Hand: DENNISNPARKER Modifier: GWENDOLYNPARKER 2 <*> Procedure Lumbar [...] Procedure <+> 10 Other Attendee 09/30/20 17:11:51 Base Ply Hand: CHAVEZOLYNPARKER Modifier: GWENDOLYNPARKER 2 <*> Procedure Lumbar [...] Role Performed <+> 9 Procedure 09/30/20 17:08:40 Base Ply Hand: VALERY Modifier: VALERY 2 <+> Time In [...] <+> 8 Role Performed <+> 8 Procedure [facility] IntraOp Case Times Entry 1 Patient In Room Time 09/30/20 16:16:00 Out Room Time 09/30/20 20:05:00 Anesthesia Start Time 09/30/20 16:16:00 Stop Time 09/30/20 20:05:00 Surgery / Procedure Times Start Time 09/30/20 17:03:00 Stop Time 09/30/20 19:53:00 Last Modified By: Vanesa Webster Rn 09/30/20 20:08:18 [facility] IntraOp Case Times Audit 09/30/20 20:08:18 Base Ply Hand: VALERY Modifier: VALERY <+> 1 Out Room Time <+> 1 Stop Time <+> 1 Stop Time 09/30/20 17:10:31 Base Ply Hand: VALERY Modifier: VALERY <+> 1 Start Time [facility] IntraOp Cautery Entry 1 ESU Identification Cautery Type Monopolar ESU ID Number [id number] ID Type Hospital Number Cautery Settings Cut Setting 8 Coag Setting 50 ESU Grounding Pad Ground Pad Type Adult Grounding Pad Site Right thigh Grounding Pad Vanesa Webster Rn Applied By Grounding Pad Site Warm, dry and intact Skin Condition Before Cautery Grounding Pad Site Warm, dry and intact Skin Condition After Cautery Last Modified By: Vanesa Webster Rn 09/30/20 17:09:48 [facility] IntraOp Communication Entry 1 Communication To Family/Significant other Comment START Communication By Vanesa Webster Rn Date and Time 09/30/20 17:03:00 Last Modified By: Vanesa Webster Rn 09/30/20 17:10:13 [facility] IntraOp Counts Verification Entry 1 Procedure Lumbar Fusion Posterior 3 Level Count Info Count Type Sponge, Sharps, Miscellaneous Counts Verification Baseline/pre-procedure Sequence Counts Performed By Count Performed By PILO ALEXANDER ST (Scrub) Count Performed By Vanesa Webster Rn (RN) Last Modified By: Vanesa Webster Rn 09/30/20 16:23:20 [facility] IntraOp Counts Final Entry 1 Procedure Lumbar Fusion Posterior 3 Level Final Count Info Count Type Sponge, Sharps, Miscellaneous Counts Verification Skin Closure/end of Sequence procedure Count Results Correct, surgeon notified Counts Performed By Count Performed By MEKA ALY SC RUB (Scrub) TECH Count Performed By Vanesa Webster Rn (RN) Last Modified By: Vanesa Webster Rn 09/30/20 19:32:13 [facility] IntraOp Counts Final Audit 09/30/20 19:32:13 Base Ply Hand: DENNISNPARKER Modifier: CHAVEZOLYNPARKER 1 <*> Procedure Lumbar Fusion Posterior 3 Level 1 <+> Count Performed By (Scrub) 1 <+> Count Performed By (RN) [facility] IntraOp Departure from OR Entry 1 Integumentary Assessment Integumentary WDL with patient Assessment WDL specific variances Patient's Normal OPSITE Integumentary Variance(s) Transfer/Handoff Transfer to PACU Phase I Handoff Method Bedside/Face to face, Phone call Post-op Transport Stretcher/Khalif Via Patient Transport Vanesa Webster Rn, Accompanied by CHRISTIAN OLIVER APRN Last Modified By: Vanesa Webster Rn 09/30/20 17:12:37 [facility] IntraOp Drains and Tubes Entry 1 Device Type Angelo Altman round drain Size 10 Drain/Tube Activity Inserted Drain/Tube Suction Bulb Drain/Tube Drainage Sanguineous Tube Dressing Dry, Intact Condition Surgical Drains and Continuous Spencer Tubes Irrigation Last Modified By: Vanesa Webster Rn 09/30/20 19:50:00 [facility] IntraOp Dressing and Packing Entry 1 Type Dressing Location OPSITE Applied By TROY MCCLURE MD-[facility] Last Modified By: Vanesa Webster Rn 09/30/20 17:13:17 [facility] IntraOp Fire Risk Assessment Entry 1 Fire [...] Modified By: Vanesa Webster Rn 09/30/20 17:13:53 [facility] IntraOp General Case Lead Presser 1 Case Information OR OR 10 [facility] Case Level 1 Room Verified Yes Wound Class I - Clean Specialty SN Neurosurgery Anesthesia Type General ASA Class 3 Diagnosis Preop Diagnosis CHRONIC EMBOLISM AND THROMBOSIS OUNSPECIFIED VEIN Postop Same As Preop No Postop Diagnosis CHRONIC EMBOLISM AND THROMBOSIS OUNSPECIFIED VEIN SEE SURGEON POST OP NOTES Last Modified By: Vanesa Webster Rn 09/30/20 17:17:05 [facility] IntraOp General Case Data Audit 09/30/20 17:17:05 Base Ply Hand: DENNISNPARKER Modifier: GWENDOLYNPARKER <+> 1 Postop Same As Preop <+> 1 Postop Diagnosis 09/30/20 17:16:40 Base Ply Hand: YANAENDOLYNPARKER Modifier: GWENDOLYNPARKER 1 <*> Preop Diagnosis CHRONIC EMBOLISM AND THROMBOSIS OUNSPECIFIED VEIN 09/30/20 17:16:21 Base Ply Hand: YANAENDOLYNPARKER Modifier: GWENDOLYNPARKER <+> 1 Preop Diagnosis [facility] IntraOp Implant Log Entry 1 Entry 2 Entry 3 Type Implant (Synthetic) Implant (Synthetic) Implant (Synthetic) Implant Log Implant Type Other Other Other Tissue Implant Type Implant SCR SPNE CHRISTIAN FIX SCR SPNE CHRISTIAN FIX SCR SPNE CHRISTIAN FIX Identification [id number] Description Implant Quantity 2 4 2 Implant Site OPSITE OPSITE OPSITE Implant Identification Model Number Implant Identification Serial Number Implant Identification Lot Number Implant J&J:Depuy:Depuy Spine J&J:Depuy:Depuy Spine J&J:Depuy:Depuy Spine Identification Transformation Analyst Name: Implant [id number] Identification Catalog Number Implant Size 7X55MM 6X55MM 6X50MM Implant Has an Expiration Date Implant Expiration Date Wasted Radioactive Material Time Implanted Tissue Implant Continue for Tissue Implant Documentation Tissue Identification Number Graft Prep Per Transformation Analyst Instructions: Tissue Preparation Method: Reconstitution Solution: Reconstitution Solution Lot Number Reconstitution Solution Expiration Date: Thawing Solution Thawing Solution Lot Number Thawing Solution Expiration Date Preparation Materials, Other Preparation Materials, Other Lot Number Preparation Materials, Other Expiration Date Tissue Prepared/Processed By Transformation Analyst Paperwork Completed Implant Type Comment Last Modified By: Vanesa Webster Rn Parker, Gwendolyn, Rn Parker, Gwendolyn, Rn 09/30/20 19:43:17 09/30/20 19:43:17 09/30/20 19:43:17 Entry 4 Entry 5 Entry 6 Type Implant (Synthetic) Implant (Synthetic) Implant (Synthetic) Implant Log Implant Type Other Other Other Tissue Implant Type Implant SCR SPNE CHRISTIAN FIX SCR ILIAM [id number] SCR ILIAM 8MM X 90MM Identification [id number] Description Implant Quantity 2 1 1 Implant Site OPSITE OPSITE OPSITE Implant Identification Model Number Implant Identification Serial Number Implant Identification Lot Number Implant J&J:Depuy:Depuy Spine J&J:Depuy:Depuy Spine J&J:Depuy:Depuy Spine Identification Transformation Analyst Name: Implant -750 [id number] Identification Catalog Number Implant Size [id number] 8X90 Implant Has an Expiration Date Implant Expiration Date Wasted Radioactive Material Time Implanted Tissue Implant Continue for Tissue Implant Documentation Tissue Identification Number Graft Prep Per Transformation Analyst Instructions: Tissue Preparation Method: Reconstitution Solution: Reconstitution Solution Lot Number Reconstitution Solution Expiration Date: Thawing Solution Thawing Solution Lot Number Thawing Solution Expiration Date Preparation Materials, Other Preparation Materials, Other Lot Number Preparation Materials, Other Expiration Date Tissue Prepared/Processed By Transformation Analyst Paperwork Completed Implant Type Comment Last Modified By: Vanesa Webster Rn Parker, Gwendolyn, Rn Parker, Gwendolyn, Rn 09/30/20 19:43:17 09/30/20 19:43:17 09/30/20 19:43:17 Entry 7 Entry 8 Entry 9 Type Implant (Synthetic) Implant (Synthetic) Implant (Synthetic) Implant Log Implant Type Other Other Other Tissue Implant Type Implant MIS PARAG PLY SCRW SET CONCORDE BUL BRANDEN CONCORDE BUL BRANDEN [id number] Identification [id number] Description Implant Quantity 12 1 1 Implant Site OPSITE OPSITE OPSITE Implant Identification Model Number Implant Identification Serial Number Implant Identification Lot Number Implant J&J:Depuy:Depuy Spine J&J:Depuy:Depuy Spine J&J:Depuy:Depuy Spine Identification Transformation Analyst Name: Implant [id number] Identification Catalog Number Implant Size [id number] 9 X27 Implant Has an Expiration Date Implant Expiration Date Wasted Radioactive Material Time Implanted Tissue Implant Continue for Tissue Implant Documentation Tissue Identification Number Graft Prep Per Transformation Analyst Instructions: Tissue Preparation Method: Reconstitution Solution: Reconstitution Solution Lot Number Reconstitution Solution Expiration Date: Thawing Solution Thawing Solution Lot Number Thawing Solution Expiration Date Preparation Materials, Other Preparation Materials, Other Lot Number Preparation Materials, Other Expiration Date Tissue Prepared/Processed By Transformation Analyst Paperwork Completed Implant Type Comment Last Modified By: Vanesa Webster Rn Parker, Gwendolyn, Rn Parker, Gwendolyn, Rn 09/30/20 19:43:17 09/30/20 19:43:17 09/30/20 19:43:17 Entry 10 Type Implant (Synthetic) Implant Log Implant Type Other Tissue Implant Type Implant MOOSE SPINAL Identification [id number] Description Implant Quantity 2 Implant Site OPSITE Implant Identification Model Number Implant Identification Serial Number Implant Identification Lot Number Implant J&J:Depuy:Depuy Spine Identification Transformation Analyst Name: Implant [id number] Identification Catalog Number Implant Size 135MM Implant Has an Expiration Date Implant Expiration Date Wasted Radioactive Material Time Implanted Tissue Implant Continue for Tissue Implant Documentation Tissue Identification Number Graft Prep Per Transformation Analyst Instructions: Tissue Preparation Method: Reconstitution Solution: Reconstitution Solution Lot Number Reconstitution Solution Expiration Date: Thawing Solution Thawing Solution Lot Number Thawing Solution Expiration Date Preparation Materials, Other Preparation Materials, Other Lot Number Preparation Materials, Other Expiration Date Tissue Prepared/Processed By Transformation Analyst Paperwork Completed Implant Type Comment Last Modified By: Vanesa Webster Rn 09/30/20 19:43:17 [facility] IntraOp Implant Log Audit 09/30/20 19:43:17 Base Ply Hand: FIORDALIZAVALENTINE Modifier: VALERY 1 <*> Implant Identification Description SCR SPNE CHRISTIAN FIX [id number] <*> Implant Quantity 1 <+> 2 Implant Identification Description <+> 2 Implant Identification Transformation Analyst Name: <+> 2 Implant Size <+> 2 Implant Site <+> 2 Implant Quantity <+> 2 Implant Identification Catalog Number <+> 2 Implant Type <+> 2 Type <+> 3 Implant Identification Description <+> 3 Implant Identification Transformation Analyst Name: <+> 3 Implant Size <+> 3 Implant Site <+> 3 Implant Quantity <+> 3 Implant Identification Catalog Number <+> 3 Implant Type <+> 3 Type <+> 4 Implant Identification Description <+> 4 Implant Identification Transformation Analyst Name: <+> 4 Implant Size <+> 4 Implant Site <+> 4 Implant Quantity <+> 4 Implant Identification Catalog Number <+> 4 Implant Type <+> 4 Type <+> 5 Implant Identification Description <+> 5 Implant Identification Transformation Analyst Name: <+> 5 Implant Site <+> 5 Implant Quantity <+> 5 Implant Identification Catalog Number <+> 5 Implant Type <+> 5 Type <+> 6 Implant Identification Description <+> 6 Implant Identification Transformation Analyst Name: <+> 6 Implant Size <+> 6 Implant Site <+> 6 Implant Quantity <+> 6 Implant Identification Catalog Number <+> 6 Implant Type <+> 6 Type <+> 7 Implant Identification Description <+> 7 Implant Identification Transformation Analyst Name: <+> 7 Implant Site <+> 7 Implant Quantity <+> 7 Implant Identification Catalog Number <+> 7 Implant Type <+> 7 Type <+> 8 Implant Identification Description <+> 8 Implant Identification Transformation Analyst Name: <+> 8 Implant Size <+> 8 Implant Site <+> 8 Implant Quantity <+> 8 Implant Identification Catalog Number <+> 8 Implant Type <+> 8 Type <+> 9 Implant Identification Description <+> 9 Implant Identification Transformation Analyst Name: <+> 9 Implant Size <+> 9 Implant Site <+> 9 Implant Quantity <+> 9 Implant Identification Catalog Number <+> 9 Implant Type <+> 9 Type <+> 10 Implant Identification Description <+> 10 Implant Identification Transformation Analyst Name: <+> 10 Implant Size <+> 10 Implant Site <+> 10 Implant Quantity <+> 10 Implant Identification Catalog Number <+> 10 Implant Type <+> 10 Type [facility] IntraOp Intraoperative Assessment Entry 1 Handoff Method Bedside/Face to face, Online nursing summary Valid History / Yes Physical in Chart Preoperative Yes Checklist Reviewed/Evaluated Allergies Reviewed Yes Patient is Latex No Sensitive Skin Assessment No Verified Present Upon IVs Arrival to OR Last Modified By: Vanesa Webster Rn 09/30/20 17:17:31 [facility] IntraOp Intraoperative Equipment Entry 1 Type Monitoring Equipment Equipment Garrett Suction System ID Number [id number] Setting HIGH Intraop Monitoring Electrocardiogram Five lead placement (ECG) Electrode Placement Blood Pressure Non-Invasive BP Device Source Blood Pressure Arm, left upper Location Pulse Oximeter Hand, right Probe Site Antiembolic Devices Scopes Photo/Video Documentation Last Modified By: Vanesa Webster Rn 09/30/20 17:18:41 [facility] IntraOp Medication Admin Entry 1 Entry 2 Entry 3 Medication/Irrigant Marcaine 0.25% 30ml lidocaine 1% w/ thrombin 5000units vial - [id number] epinephrine 1:100,000 topical powder - 30ml vial - [id number] Combo Med List Time Administered Route of [...] ointment vancomycin 1Gm - powder vial - [id number] Combo Med List Time Administered Route of LOCAL TOPICAL Administration Dose Dose 33339 1 Unit of Measure units pkt gram Volume Administered By TROY MCCLURE TUTT, MATTHEW PAIGE, TUTT, MATTHEW PAIGE, MD-SNU MD-SNU MD-SNU Procedure Irrigation Irrigant Volume In Irrigant Volume Out Last Modified By: Vanesa Webster Rn Parker, Gwendolyn, Rn Parker, Gwendolyn, Rn 09/30/20 17:49:37 09/30/20 18:04:30 09/30/20 19:31:54 [facility] IntraOp Medication Admin Audit 09/30/20 19:31:54 Base Ply Hand: YANAENDOLYNPARKER Modifier: GWENDOLYNPARKER <+> 6 Medication/Irrigant <+> 6 Administered By <+> 6 Dose <+> 6 Unit of Measure 09/30/20 18:04:30 Base Ply Hand: GWENDOLYNPARKER Modifier: GWENDOLYNPARKER <+> 5 Medication/Irrigant <+> 5 Route of Administration <+> 5 Administered By <+> 5 Unit of Measure [facility] IntraOp Patient Positioning Entry 1 Procedure Lumbar [...] Modified By: Vanesa Webster Rn 09/30/20 17:51:42 [facility] IntraOp Sign In Entry 1 Patient, Site, [...] Modified By: Vanesa Webster Rn 09/30/20 17:54:42 [facility] IntraOp Sign Out Entry 1 RN Confirmation [...] Modified By: Vanesa Webster Rn 09/30/20 20:08:31 [facility] IntraOp Sign Out Audit 09/30/20 20:08:31 Base Ply Hand: VALERY Modifier: VALERY <+> 1 RN Sign Out Signature Date/Time [facility] IntraOp Skin Prep Entry 1 Procedure Lumbar Fusion Posterior 3 Level Prescribed Yes Pre-Surgical Prep Completed Prep Area OPSITE Intraop Prep Prep Agents DuraPrep Prep by Vanesa Webster Rn Hair Removal Last Modified By: Vanesa Webster Rn 09/30/20 17:53:59 [facility] IntraOp Surgical Procedures Entry 1 Procedure Lumbar Fusion Posterior 3 Level Additional L2 - ILIAC FUSION USING Procedure AIRO Description Primary Procedure Yes Primary Surgeon TROY MCCLURE MD-SNU Start 09/30/20 17:03:00 Stop 09/30/20 19:53:00 Anesthesia Type General Specialty SN Neurosurgery Wound Class I - Clean Last Modified By: Vanesa Webster Rn 09/30/20 20:08:23 [facility] IntraOp Surgical Procedures Audit 09/30/20 20:08:23 Base Ply Hand: VALERY Modifier: VALERY <+> 1 Stop [facility] IntraOp Temp Regulation Devices Entry 1 Temp Regulation Temperature Forced Air Warming Regulation Device device Temperature Upper body Regulation Site Temperature Device 43 C Setting Temperature CHRISTIAN OLIVER APRN Regulation Device Applied by Last Modified By: Vanesa Webster Rn 09/30/20 17:53:02 [facility] IntraOP Time Out Entry 1 Procedure to [...] 17:04:48 Case Comments <None> Finalized By: JAN CARPENETR Document Signatures Signed By: Vanesa Webster Rn 09/30/20 20:08 JAN CARPENTER 10/02/20 07:54 Unfinalized History Date/Time Username Reason for Unfinalizing Freetext Reason for Unfinalizing 10/02/20 07:52 [email or web address] Correct Billing Electronically signed by Sunday Avalos Conversion Certified Medical Coding Specialist Cerner at 03/08/2023 11:47 PM CDT documented in this encounter Plan of Treatment Not on file documented as of this encounter Visit Diagnoses Not on filedocumented in this encounter Care Teams Supervisor Inspection Department Relationship Specialty Start Date End Date Harris Quinn MD [address] [place] [address] PCP - General Adolescent Medicine 01/12/24 Jackie Prado APRN [address], [place] [address] Referring Physician Nurse Practitioner 01/12/24 documented as of this encounter
--- OUTSIDE RECORDS SUMMARY | 2025-07-28 12:09 | XMS_ITS | Encounter Summary ---
Author Organization [employer] ([place], [place], [place], [place]) Address [address] [place] [address] Care Team Providers Care Prototype Assembler Electronics Name Role Phone Harris Quinn MD Primary Care Provider + [phone] Jackie Prado LIVING SPECIALIST Unavailable + [phone] Encounter Details Date Type Department Care Team (Late st Contact Info) Description 09/30/2020 Transcribed Document [facility] [place] [address] [place] [address] ProviderJerrica MD [address], [place] [address] Social History Tobacco Use Types Packs/Day Years Used Date Smoking Tobacco: Never Assessed Sex and Gender Information Value Date Recorded Sex Assigned at Male 06/20/2024 10:08 AM CDT Legal Sex Male 7:36 AM SENIOR TREASURY ANALYST Gender Identity Male 06/20/2024 10:08 AM CDT Sexual Orientation Not on file documented as of this encounter Miscellaneous Notes * Cerner Conversion Note - Jerrica ProviderMD - 09/30/2020 2:05 PM SENIOR TREASURY ANALYST [facility] Authorization Entered On: 09/30/2020 14:07 EST Performed On: 09/30/2020 14:05 EST by Lyric Gerard, Measurement Supervisor Primary Insurance Authorization Authorization and Policy Numbers : Insurance 1 Health Plan: [employer] Policy Number: [id number] Authorization Number: Insurance Primary Name : [employer] Policy Number: [id number] Authorization Status-Primary : Admit approved Reference Number-Primary : [id number] Number of Days Authorized-Primary : 10 Day(s) [...] Dawn, Rn-Utilization Review 09/28/2020 12:09) Lyric Gerard, Measurement Supervisor - 09/30/2020 14:05 EST Electronically signed by [facility] Conversion Active Directory Architect Cerner at 03/08/2023 11:37 PM CDT documented in this encounter Plan of Treatment Not on file documented as of this encounter Visit Diagnoses Not on filedocumented in this encounter Care Teams Prototype Assembler Electronics Relationship Specialty Start Date End Date Harris Quinn MD [address] [place] [address] PCP - General Adolescent Medicine 01/12/24 Jackie Prado, LIVING SPECIALIST [address], [place] [address] Referring Physician Nurse Practitioner 01/12/24 documented as of this encounter
--- OUTSIDE RECORDS SUMMARY | 2025-07-28 12:09 | XMS_ITS | Encounter Summary ---
Author Organization [employer] ([place], [place], [place], [place]) Address [address] [place] [address] Care Team Providers Care Binder Cutter Name Role Phone Harris Quinn MD Primary Care Provider + [phone] Jackie Prado SALES COORDINATOR Unavailable + [phone] Encounter Details Date Type Department Care Team (Late st Contact Info) Description 10/03/2020 Transcribed Document [facility] [place] [address] [place] [address] ProviderJerrica MD [address] [place], [place] [id number] Social History Tobacco Use Types Packs/Day Years Used Date Smoking Tobacco: Never Assessed Sex and Gender Information Value Date Recorded Sex Assigned at Male 06/20/2024 10:08 AM CDT Legal Sex Male 7:36 AM PHOSPHATIC FERTILIZER SUPERVISOR Gender Identity Male 06/20/2024 10:08 AM CDT Sexual Orientation Not on file documented as of this encounter Miscellaneous Notes * [employer]ner Conversion Note - Historical ProviderMD - 10/03/2020 3:48 PM PHOSPHATIC FERTILIZER SUPERVISOR Discharge Summary, PT Entered On: 10/03/2020 15:54 [...] LIV RICHARDSON, PT - 10/03/2020 15:54 EST Intermediate Goals Mobility/Bed Mobility LTG PT Grid Goal [...] 10/03/2020 15:48 EST Electronically signed by Bailey, [facility] Conversion Banquet Houseperson Cerner at 03/08/2023 11:30 PM CDT documented in this encounter Plan of Treatment Not on file documented as of this encounter Visit Diagnoses Not on filedocumented in this encounter Care Teams Binder Cutter Relationship Specialty Start Date End Date Harris Quinn MD [address] [place] [facility] [address] [place] [address] PCP - General Adolescent Medicine 01/12/24 Jackie Prado, LEORA [address] [place] [address], [place] [address] Referring Physician Nurse Practitioner 01/12/24 documented as of this encounter
--- OUTSIDE RECORDS SUMMARY | 2025-07-28 12:09 | XMS_ITS | Encounter Summary ---
Author Organization [employer] ([place], [place], [place], [place]) Address [address] [place] [address] Care Team Providers Care Cleat Layer Name Role Phone Harris Quinn MD Primary Care Provider + [phone] Jackie Prado CHANGE ROOM ATTENDANT Unavailable + [phone] Encounter Details Date Type Department Care Team (Late st Contact Info) Description 09/27/2020 Transcribed Document [facility] Radiology [address] [place] [id number] Yefri Mojica MD [address] [place] [address] [address] [place] [address] Social History Tobacco Use Types Packs/Day Years Used Date Smoking Tobacco: Never Assessed Sex and Gender Information Value Date Recorded Sex Assigned at Male 06/20/2024 10:08 AM CDT Legal Sex Male 7:36 AM ORCHARDIST Gender Identity Male 06/20/2024 10:08 AM CDT [...] 65-year-old gentleman presents as a transfer from [facility] where he presented earlier today With [...] Due to excruciating pain, he presented at [facility]. He underwent CT scan of the [...] mg, Oral, Daily Lovenox: 1 mg/kg, SubCutaneous, [id number] MiraLax: 17 Gram, Oral, Daily, PRN: Constipation [...] IV Push, Q8H enoxaparin 1 mg/kg, SubCutaneous, [id number] gabapentin 300 mg cap 300 mg 1 [...] gallop, S1+ S2 No S3 or S4 Jay.. Gastrointestinal: Soft, Non-tender, Non-distended, Normal bowel sounds. [...] on filedocumented in this encounter Care Teams Cleat Layer Relationship Specialty Start Date End Date Harris Quinn MD [address] [place] [facility] [address] [place] [address] PCP - General Adolescent Medicine 01/12/24 Jackie Prado APRN [address] [place] [address], [place] [address] Referring Physician Nurse Practitioner 01/12/24 documented as of this encounter
--- OUTSIDE RECORDS SUMMARY | 2025-07-28 12:09 | XMS_ITS | Encounter Summary ---
Author Organization [employer] ([place], [place], [place], [place]) Address [address] [place] [address] Care Team Providers Care Stay Cutter Name Role Phone Harris Quinn MD Primary Care Provider + [phone] Jackie Prado DIRECTOR OF SUPPLY CHAIN Unavailable + [phone] Encounter Details Date Type Department Care Team (Late st Contact Info) Description 09/30/2020 Transcribed Document [facility] [place] Family Medicine [address] [place] [address] ProviderJerrica MD [address] [place], [place] [id number] Social History Tobacco Use Types Packs/Day Years Used Date Smoking Tobacco: Never Assessed Sex and Gender Information Value Date Recorded Sex Assigned at Male 06/20/2024 10:08 AM CDT Legal Sex Male 7:36 AM GAS COMBUSTION ENGINEER Gender Identity Male 06/20/2024 10:08 AM CDT Sexual Orientation Not on file documented as of this encounter Miscellaneous Notes * Cerner Conversion Note - Jerrica ProviderMD - 09/30/2020 10:00 PM GAS COMBUSTION ENGINEER Pain Assessment Entered On: 10/01/2020 2:35 EST Performed On: 09/30/2020 23:06 EST by Armando Armenta Rn Intervention Information: acetaminophen Performed by Armando Armenta Rn on 09/30/2020 22:06:00 EST acetaminophen,650mg Oral Pain Assessment Pain Scale Goal : 2 Armando Armenta Rn - 10/01/2020 2:35 EST Electronically signed by Bailey [facility] Conversion Drug And Alcohol Counsellor Cerner at 03/08/2023 11:26 PM CDT documented in this encounter Plan of Treatment Not on file documented as of this encounter Visit Diagnoses Not on filedocumented in this encounter Care Teams Stay Cutter Relationship Specialty Start Date End Date Harris Quinn MD [address] [place] [facility] [address] [place] [address] PCP - General Adolescent Medicine 01/12/24 Jackie Prado, DIRECTOR OF SUPPLY CHAIN [address] [place] [facility] [address], [place] [address] Referring Physician Nurse Practitioner 01/12/24 documented as of this encounter
--- OUTSIDE RECORDS SUMMARY | 2025-07-28 12:09 | XMS_ITS | Referral Summary ---
Author Organization [employer] ([place], [place], [place], [place]) Address [address] [place] [address] Care Team Providers Care Cycle Counter Name Role Phone Harris Quinn MD Primary Care Provider + [phone] Jackie Prado DEPARTMENT HEAD COLLEGE OR UNIVERSITY Unavailable + [phone] Allergies No known active allergies Medications * [...] mg total) by mouth daily. Active omega 3-eoi-sfd-fish oil capsule Take 1 capsule (1,000 mg [...] AM CDT Legal Sex Male 7:36 AM KEY PUNCH OPERATOR Gender Identity Male 06/20/2024 10:08 AM [...] Treatment Not on file Insurance [place] [id number] MEDICARE PART A B CROSS/BLUE SHIELD Care Teams Cycle Counter Relationship Specialty Start Date End Date Harris Quinn MD [address] [place] [facility] [address] [place] [address] PCP - General Adolescent Medicine 01/12/24 Jackie Prado, DEPARTMENT HEAD COLLEGE OR UNIVERSITY [address] [place] [address], [place] [address] Referring Physician Nurse Practitioner 01/12/24
--- OUTSIDE RECORDS SUMMARY | 2025-07-28 12:09 | XMS_ITS | Encounter Summary ---
Author Organization [employer] ([place], [place], [place], [place]) Address [address] [place] [address] Care Team Providers Care Process Laboratory Specialist Name Role Phone Harris Quinn MD Primary Care Provider + [phone] Jackie Prado DRY FOLDER CLOTH Unavailable + [phone] Encounter Details Date Type Department Care Team (Late st Contact Info) Description 09/30/2020 Transcribed Document [facility] Neurology - [facility] [address] [phone] John Cerda MD [address] [place] [address] [address] [place] [address] Social History Tobacco Use Types Packs/Day Years Used Date Smoking Tobacco: Never Assessed Sex and Gender Information Value Date Recorded Sex Assigned at Male 06/20/2024 10:08 AM CDT Legal Sex Male 7:36 AM LITHOGRAPHER APPRENTICE Gender Identity Male 06/20/2024 10:08 AM [...] on filedocumented in this encounter Care Teams Process Laboratory Specialist Relationship Specialty Start Date End Date Harris Quinn MD [address] [place] [facility] [address] [place] [address] PCP - General Adolescent Medicine 01/12/24 Jackie Prado, DRY FOLDER CLOTH [address] [place] [address], [place] [address] Referring Physician Nurse Practitioner 01/12/24 documented as of this encounter
--- OUTSIDE RECORDS SUMMARY | 2025-07-28 12:09 | XMS_ITS | Encounter Summary ---
Author Organization [employer] ([place], [place], [place], [place]) Address [address] [place] [address] Care Team Providers Care Audio Visual Equipment Rental Clerk Name Role Phone Harris Quinn MD Primary Care Provider + [phone] Jackie Prado HAND WORKER Unavailable + [phone] Encounter Details Date Type Department Care Team (Late st Contact Info) Description 09/30/[address] [facility] [place] [address] [place] [address] ProviderJerrica MD [address] [place], [place] [address] Social History Tobacco Use Types Packs/Day Years Used Date Smoking Tobacco: Never Assessed Sex and Gender Information Value Date Recorded Sex Assigned at Male 06/20/2024 10:08 AM CDT Legal Sex Male 7:36 AM FOREST SUPERVISOR Gender Identity Male 06/20/2024 10:08 AM CDT Sexual Orientation Not on file documented as of this encounter Miscellaneous Notes * Cerner Conversion Note - Jerrica ProviderMD - 09/30/2020 11:39 AM FOREST SUPERVISOR On Going Discharge Planning Entered On: 09/30/2020 11:43 EST Performed On: 09/30/2020 11:39 EST by RICHIE GLASGOW RN-Cattle StickerAtomic Fuel Assembler Progress Note Discharge Arrangements : Patient Post-Acute [...] Meeting Medical Necessity : Yes RICHIE GLASGOW, RN-Cattle Sticker - 09/30/2020 11:39 EST Narrative Progress Note Narrative Progress Note : Pt going to OR this afternoon for L2-iliac fusion. Met with pt at bedside to discuss DCP. Pt lives alone. He is retired from the [employer]. His daughter and family live about 1/4 mile away. He denies use of AD/HH/Rehab stays. He had been going to [facility] outpatient PT but with no relief. He states it is crowded there and will likely go to a different outpatient PT place if appropriate. CM will continue to follow. RICHIE GLASGOW RN-Cattle Sticker - 09/30/2020 11:39 EST Electronically signed by Bailey [facility] Conversion Counter Waiter Cerner at 03/08/2023 11:45 PM CDT documented in this encounter Plan of Treatment Not on file documented as of this encounter Visit Diagnoses Not on filedocumented in this encounter Care Teams Audio Visual Equipment Rental Clerk Relationship Specialty Start Date End Date Harris Quinn MD [address] [facility] [address] [place] [address] PCP - General Adolescent Medicine 01/12/24 Jackie Prado, HAND WORKER [address] [facility] [address] [place] [address] Referring Physician Nurse Practitioner 01/12/24 documented as of this encounter
--- OUTSIDE RECORDS SUMMARY | 2025-07-28 12:09 | XMS_ITS | Encounter Summary ---
Author Organization [employer] ([place], [place], [place], [place]) Address [address] [place] [address] Care Team Providers Care Calf Skinner Name Role Phone Harris Quinn MD Primary Care Provider + [phone] Jackie Prado TUBER HELPER Unavailable + [phone] Encounter Details Date Type Department Care Team (Late st Contact Info) Description 10/02/2020 Transcribed Document [facility] [place] [address] [place] [address] ProviderJerrica MD [address] [place] [address] Social History Tobacco Use Types Packs/Day Years Used Date Smoking Tobacco: Never Assessed Sex and Gender Information Value Date Recorded Sex Assigned at Male 06/20/2024 10:08 AM CDT Legal Sex Male 7:36 AM ELECTRIC FAN ASSEMBLER Gender Identity Male 06/20/2024 10:08 AM CDT Sexual Orientation Not on file documented as of this encounter Miscellaneous Notes * Cerner Conversion Note - Jerrica ProviderMD - 10/02/2020 10:00 AM ELECTRIC FAN ASSEMBLER Pain Assessment Entered On: 10/02/2020 13:20 EST Performed On: 10/02/2020 12:12 EST by Miko Perdomo RN Intervention Information: acetaminophen Performed by Miko Perdomo RN on 10/02/2020 11:12:00 EST acetaminophen,650mg Oral Pain Assessment Pain Scale Goal : 2 Miko Perdomo RN - 10/02/2020 13:20 EST Electronically signed by Bailey [facility] Conversion Transit Authority Police Officer Cerner at 03/08/2023 11:34 PM CDT documented in this encounter Plan of Treatment Not on file documented as of this encounter Visit Diagnoses Not on filedocumented in this encounter Care Teams Calf Skinner Relationship Specialty Start Date End Date Harris Quinn MD [address] [place] [facility] [address] [place] [address] PCP - General Adolescent Medicine 01/12/24 Jackie Prado, TUBER HELPER [address] [place] [facility] [address], [place] [address] Referring Physician Nurse Practitioner 01/12/24 documented as of this encounter
--- OUTSIDE RECORDS SUMMARY | 2025-07-28 12:09 | XMS_ITS | Encounter Summary ---
Author Organization [employer] ([place], [place], [place], [place]) Address [address] [place] [address] Care Team Providers Care Chip Mixing Machine Operator Name Role Phone Harris Quinn MD Primary Care Provider + [phone] Jackie Prado FORESTRY CONSULTANT Unavailable + [phone] Encounter Details Date Type Department Care Team (Late st Contact Info) Description 09/30/2020 Transcribed Document [facility] Neurology - [facility] [address] [phone] John Cerda MD [address] [place] [address] [address] [place] [address] Social History Tobacco Use Types Packs/Day Years Used Date Smoking Tobacco: Never Assessed Sex and Gender Information Value Date Recorded Sex Assigned at Male 06/20/2024 10:08 AM CDT Legal Sex 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 Intraoperative CT scan with stereotactic navigation. JINGLE WRITER: None. TYPE OF ANESTHESIA: GEA. DESCRIPTION OF [...] stereotactic navigation. The usual freehand techniques, the [place] Illuminationium system, and the navigation were utilized to [...] 450 mL. DRAINS: Angelo Altman. COMPLICATIONS: None. /[id number] John Cerda MD MPT/AQ / MPT / MODL /[id number] CC: Harris Quinn documented in this encounter Plan of Treatment Not on file documented as of this encounter Visit Diagnoses Not on filedocumented in this encounter Care Teams Chip Mixing Machine Operator Relationship Specialty Start Date End Date Harris Quinn MD [address] [place] [facility] [address] [place] [address] PCP - General Adolescent Medicine 01/12/24 Jackie Prado, FORESTRY CONSULTANT [address] [place] [address], [place] [address] Referring Physician Nurse Practitioner 01/12/24 documented as of this encounter
--- OUTSIDE RECORDS SUMMARY | 2025-07-28 12:09 | XMS_ITS | Encounter Summary ---
Author Organization [employer] ([place], [place], [place], [place]) Address [address] [place] [address] Care Team Providers Care Radiological Metallurgist Name Role Phone Harris Quinn MD Primary Care Provider + [phone] Jackie Prado YIELD LOSS INSPECTOR Unavailable + [phone] Encounter Details Date Type Department Care Team (Late st Contact Info) Description 10/03/2020 Transcribed Document [facility] Neurology - [address] [phone] John Cerda MD [address] [place] [address] [address] [place] [address] Social History Tobacco Use Types Packs/Day Years Used Date Smoking Tobacco: Never Assessed Sex and Gender Information Value Date Recorded Sex Assigned at Male 06/20/2024 10:08 AM CDT Legal Sex Male 7:36 AM TREE PRUNER Gender Identity Male 06/20/2024 10:08 AM CDT [...] filedocumented in this encounter Care Teams Radiological Metallurgist Relationship Specialty Start Date End Date Harris Quinn MD [address] [place] [facility] [address] [place] [address] PCP - General Adolescent Medicine 01/12/24 Jackie Prado, YIELD LOSS INSPECTOR [address] [place] [facility] [address], [place] [address] Referring Physician Nurse Practitioner 01/12/24 documented as of this encounter
--- OUTSIDE RECORDS SUMMARY | 2025-07-28 12:09 | XMS_ITS | Encounter Summary ---
Author Organization [employer] ([place], [place], [place], [place]) Address [address] [place] [address] Care Team Providers Care Calciminer Name Role Phone Harris Quinn MD Primary Care Provider + [phone] Jackie Prado HYDROMETEOROLOGY TEACHER Unavailable + [phone] Encounter Details Date Type Department Care Team (Late st Contact Info) Description 10/03/2020 Transcribed Document [facility] [place] [address] [place] [address] ProviderJerrica MD [address] [place], [place] [address] Social History Tobacco Use Types Packs/Day Years Used Date Smoking Tobacco: Never Assessed Sex and Gender Information Value Date Recorded Sex Assigned at Male 06/20/2024 10:08 AM CDT Legal Sex Male 7:36 AM OPHTHALMOLOGY TECHNICIAN Gender Identity Male 06/20/2024 10:08 AM CDT Sexual Orientation Not on file documented as of this encounter Miscellaneous Notes * Cerner Conversion Note - Jerrica ProviderMD - 10/03/2020 3:53 PM OPHTHALMOLOGY TECHNICIAN On Going Discharge Planning Entered On: 10/03/2020 15:53 EST Performed On: 10/03/2020 15:53 EST by RICHIE GLASGOW RN-Associate Director Data & AnalyticsSprinkler Repair Technician Progress Note Discharge Arrangements : Patient Post-Acute [...] Attend Multidisciplinary Rounds? : Yes RICHIE GLASGOW RN-Associate Director Data & Analytics - 10/03/2020 15:53 EST Electronically signed by [facility] Conversion Geophysical Laboratory Chief Cerner at 03/08/2023 11:26 PM CDT documented in this encounter Plan of Treatment Not on file documented as of this encounter Visit Diagnoses Not on filedocumented in this encounter Care Teams Calciminer Relationship Specialty Start Date End Date Harris Quinn MD [address] [facility] [address] [place] [address] PCP - General Adolescent Medicine 01/12/24 Jackie Prado, HYDROMETEOROLOGY TEACHER 12[address] [facility] [address], [place] [address] Referring Physician Nurse Practitioner 01/12/24 documented as of this encounter
--- OUTSIDE RECORDS SUMMARY | 2025-07-28 12:09 | XMS_ITS | Encounter Summary ---
Author Organization [employer] ([place], [place], [place], [place]) Address [address] [place] [address] Care Team Providers Care Md Ophthalmologist Name Role Phone Harris Quinn MD Primary Care Provider + [phone] Jackie Prado NURSE'S AIDES TEACHER Unavailable + [phone] Encounter Details Date Type Department Care Team (Late st Contact Info) Description 10/02/2020 Transcribed Document [facility] [place] Medicine [address] [place] [address] ProviderJerrica MD [address] [place], [place] [address] Social History Tobacco Use Types Packs/Day Years Used Date Smoking Tobacco: Never Assessed Sex and Gender Information Value Date Recorded Sex Assigned at Male 06/20/2024 10:08 AM CDT Legal Sex Male 7:36 AM BIOFUELS TECHNOLOGY MANAGER Gender Identity Male 06/20/2024 10:08 AM CDT Sexual Orientation Not on file documented as of this encounter Miscellaneous Notes * [employer]ner Conversion Note - Jerrica ProviderMD - 10/02/2020 10:00 PM BIOFUELS TECHNOLOGY MANAGER Pain Assessment Entered On: 10/03/2020 0:13 EST [...] on filedocumented in this encounter Care Teams Md Ophthalmologist Relationship Specialty Start Date End Date Harris Quinn MD [address] [facility] [address] [place] [address] PCP - General Adolescent Medicine 01/12/24 Jackie Prado, LEORA 1210 [facility] [address], [place] [address] Referring Physician Nurse Practitioner 01/12/24 documented as of this encounter
--- OUTSIDE RECORDS SUMMARY | 2025-07-28 12:09 | XMS_ITS | Encounter Summary ---
Author Organization [employer] ([place], [place], [place], [place]) Address [address] [place] [address] Care Team Providers Care Cardiothoracic Surgeon Name Role Phone Harris Quinn MD Primary Care Provider + [phone] Jackie Prado SPA TECHNICIAN Unavailable + [phone] Encounter Details Date Type Department Care Team (Late st Contact Info) Description 10/06/2020 Transcribed Document [facility] [place] [address] [place] [address] ProviderJerrica MD [address] [place], [place] [address] Social History Tobacco Use Types Packs/Day Years Used Date Smoking Tobacco: Never Assessed Sex and Gender Information Value Date Recorded Sex Assigned at Male 06/20/2024 10:08 AM CDT Legal Sex Male 7:36 AM LEAD SETTER Gender Identity Male 06/20/2024 10:08 AM CDT Sexual Orientation Not on file documented as of this encounter Miscellaneous Notes * [employer]ner Conversion Note - Historical ProviderMD - 10/06/2020 1:40 PM LEAD SETTER UM Authorization Entered On: 10/06/2020 13:40 EST Performed On: 10/06/2020 13:40 EST by Rema Dawn Rn-Utilization Review Primary Insurance Authorization Authorization and Policy Numbers : Insurance 1 Health Plan: [employer] Policy Number: [id number] Authorization Number: Insurance Primary Name : [employer] FED Policy Number: [id number] Authorization Status-Primary : Admit approved Reference Number-Primary : [id number] Number of Days Authorized-Primary : 10 Day(s) Authorized Service Begin Date-Primary : 09/27/2020 EST Authorized Service End Date-Primary : 10/07/2020 EST Authorization Comments-Primary : D/C SUMMARY FAXED PER LAINE SOUSA ENTERED IN STAR Historical Authorization Comments-Primary : Comment 1: Authorized per fax 09/30/2020 @ 1014. Approved inpatient stay x11 days. Next review due 10/08/2020. (Lyric Gerard, Machine Packaging Technician 09/30/2020 14:05) Comment 2: plan is for OR 09/30/2020; upgraded to IP, email to dt to update status, secure email sent to [facility] w/ demographics and initial packet attached ([place] [...] on filedocumented in this encounter Care Teams Cardiothoracic Surgeon Relationship Specialty Start Date End Date Harris Quinn MD 12[address] [facility] [address] [place] [address] PCP - General Adolescent Medicine 01/12/24 Jackie Prado, SPA TECHNICIAN 1210 [facility] [address], [place] [address] Referring Physician Nurse Practitioner 01/12/24 documented as of this encounter
--- OUTSIDE RECORDS SUMMARY | 2025-07-28 12:09 | XMS_ITS | Encounter Summary ---
Author Organization [employer] ([place], [place], [place], [place]) Address [address] [place] [address] Care Team Providers Care Poultry Boner Name Role Phone Harris Quinn MD Primary Care Provider + [phone] Jackie Prado SHANK STAPLER Unavailable + [phone] Encounter Details Date Type Department Care Team (Late st Contact Info) Description 09/30/2020 Transcribed Document [facility] [place] [address] [place] [address] ProviderJerrica MD [address] [place] [address] Social History Tobacco Use Types Packs/Day Years Used Date Smoking Tobacco: Never Assessed Sex and Gender Information Value Date Recorded Sex Assigned at Male 06/20/2024 10:08 AM CDT Legal Sex Male 7:36 AM MAJOR GIFTS MANAGER Gender Identity Male 06/20/2024 10:08 AM CDT Sexual Orientation Not on file documented as of this encounter Miscellaneous Notes * Cerner Conversion Note - Jerrica ProviderMD - 09/30/2020 5:03 PM MAJOR GIFTS MANAGER [facility] Main OR PACU Summary Primary Physician: TROY MCCLURE MD-SNU Finalized Date/Time: 09/30/20 21:20:47 Pt. Name: ELIZA GUARDADO./Sex: 1955 Male Med Rec #: [id number] Physician: HERMINIA KNOWLES MD-INT Financial #: [id number] Pt. Type: I Room/Bed: 650/1 Admit/Disch: 11/09/20 14:34:00 - Institution: [facility] Main OR PACU I Case Times Entry 1 In PACU I 09/30/20 20:08:00 Ready for PACU 09/30/20 21:00:00 Discharge Discharge from PACU 09/30/20 21:00:00 I Last Modified By: STAR DAVILA 09/30/20 21:20:02 Finalized By: STAR DAVILA Document Signatures Signed By: STAR DAVLIA 09/30/20 21:20 documented in this encounter Plan of Treatment Not on file documented as of this encounter Visit Diagnoses Not on filedocumented in this encounter Care Teams Poultry Boner Relationship Specialty Start Date End Date Harris Quinn MD [address] [place] [facility] [address] [place] [address] PCP - General Adolescent Medicine 01/12/24 Jackie Prado, SHANK STAPLER [address] [facility] [address], [place] [address] Referring Physician Nurse Practitioner 01/12/24 documented as of this encounter
--- OUTSIDE RECORDS SUMMARY | 2025-07-28 12:09 | XMS_ITS | Encounter Summary ---
Author Organization [employer] ([place], [place], [place], [place]) Address [address] [place] [address] Care Team Providers Care Telephone Information Clerk Name Role Phone Harris Quinn MD Primary Care Provider + [phone] Jackie Prado LAYOUT ARTIST Unavailable + [phone] Encounter Details Date Type Department Care Team (Late st Contact Info) Description 10/01/2020 Transcribed Document [facility] [place] Family Medicine [address] [place] [address] ProviderJerrica MD [address] [place], [place] [address] Social History Tobacco Use Types Packs/Day Years Used Date Smoking Tobacco: Never Assessed Sex and Gender Information Value Date Recorded Sex Assigned at Male 06/20/2024 10:08 AM CDT Legal Sex Male 7:36 AM QUALITY CONTROL OPERATOR Gender Identity Male 06/20/2024 10:08 AM CDT Sexual Orientation Not on file documented as of this encounter Miscellaneous Notes * Cerner Conversion Note - Historical ProviderMD - 10/01/2020 5:00 PM QUALITY CONTROL OPERATOR Chart Check - Review Order Profile Entered On: 10/01/2020 18:58 EST Performed On: 10/01/2020 17:00 EST by Jessica Boyer RN Chart Check Powerplans Initiated/Discontinued as Appropriate : Yes All Active Orders Reviewed : Yes Jessica Boyer RN - 10/01/2020 18:58 EST documented in this encounter Plan of Treatment Not on file documented as of this encounter Visit Diagnoses Not on filedocumented in this encounter Care Teams Telephone Information Clerk Relationship Specialty Start Date End Date Harris Quinn MD [address] [place] [facility] [address] [place] [address] PCP - General Adolescent Medicine 01/12/24 Jackie Prado, LAYOUT ARTIST [address] [place] [facility] [address], [place] [address] Referring Physician Nurse Practitioner 01/12/24 documented as of this encounter
--- OUTSIDE RECORDS SUMMARY | 2025-07-28 12:09 | XMS_ITS | Clinical Summary ---
Author Organization [facility] Address [address] [place] [address] Care Team Providers Care Evaluation Engineer Name Role Phone Harris Quinn MD Primary Care Provider + [phone] Allergies No known active allergies Medications gabapentin [...] 1 tablet by mouth Daily. 4 Active [place]-3 Fatty Acids (fish oil) 1000 MG capsule [...] or training? Not on file Preferred Language Mozambican 07/24/2024 Sex and Gender Information Value Date [...] LIPID PANEL 1955 COLON CANCER SCREENING 5 MATTY R SIGMOIDOSCOPY 01/23/2001 COLONOSCOPY 01/23/2001 CT COLONOGRAPHY 01/23/2001 FECAL OCCULT BLOOD TEST 01/23/2001 FIT Testing (1 year) 01/23/2001 ZOSTER VACCINE (1 of 2) 01/23/2006 AAA SCREEN ONCE 01/23/2021 ANNUAL WELLNESS VISIT 07/18/2024 HEPATITIS C SCREENING 07/18/2024 COLOGUARD 10/30/2024 10/30/2021 COLORECTAL CANCER SCREENING 10/30/2024 COVID-19 Vaccine (2024-2 6 season) 2025 11/04/2021, 02/25/2021, 01/23/2021 INFLUENZA VACCINE 08/21/2025 08/16/2023, , 10/08/2021, Additional history exists TDAP/TD VACCINES (2 - Td or Tdap) 07/21/2026 016 Pneumococcal Vaccine 50+ Completed 02/08/2023, 09/21 Goals Goal Patient Goal Type Associated Problems Recent Progress Patient-Stated? Author Autogenera kun Goal Care Plan Autogenerated Problem No [facility] [place] [employer] Devices Implanted Type Area Infant Lead Teacher Device Identifier Shelf Expiration Date Model / Serial / Lot Stem Hum Equinoxe Preserve 7mm - [id number] - [id number] Implanted:Qt y: 1 on 08/06/2024 by Anup Louis MD at [facility] Implant Right: Shoulder EXACTECH [id number] 02/01/2034 [id number] / [id number] / N/A Scrw Equinoxe Torq Define Rev Shldr Kt - [id number] - [id number] Implanted:Qt y: 1 on 08/06/2024 by Anup Louis MD at [facility] Implant Right: Shoulder EXACTECH [id number] 05/13/2029 [id number] / [id number] / N/A Liner Hum/Shldr Equinoxe/Rev 38mm Pls0 - [id number] - [id number] Implanted:Qt y: 1 on 08/06/2024 by Anup Louis MD at [facility] Implant Right: Shoulder EXACTECH [id number] 03/06/2029 [id number] / [id number] / N/A Try Adapt Hum/Shldr Equinoxe For/Rev/Totl Pls0 - [id number] - [id number] Implanted:Qt y: 1 on 08/06/2024 by Anup Louis MD at [facility] Implant Right: Shoulder EXACTECH [id number] 05/17/2034 [id number] / [id number] / N/A Totl Shldr Rev Jun [id number] Implanted:Qt y: 1 on 08/06/2024 by Anup Louis MD at [facility] Implant Right: Shoulder EXACTECH CAPSHOULDREVAUGE X AC / / Plt Fred Jnt Equinoxe Aug/Superior 10deg - [id number] - [id number] Implanted:Qt y: 1 on 08/06/2024 by Anup Louis MD at [facility] Implant Right: Shoulder EXACTECH [id number] 10/16/2028 [id number] / [id number] / N/A Scrw Compr Equinoxe Lk 4.5x30mm - [id number] - [id number] Implanted:Qt y: 1 on 08/06/2024 by Anup Louis MD at [facility] Implant Right: Shoulder EXACTECH [id number] 02/28/2029 [id number] / [id number] / Scrw Compr Equinoxe Lk 4.5x26mm - [id number] - [id number] Implanted:Qt y: 1 on 08/06/2024 by Anup Louis MD at [facility] Implant Right: Shoulder EXACTECH [id number] 07/27/2028 [id number] / [id number] / N/A Scrw Compr Equinoxe Lk 4.5x34mm - [id number] - [id number] Implanted:Qt y: 1 on 08/06/2024 by Anup Louis MD at [facility] Implant Right: Shoulder EXACTECH [id number] 11/09/2028 [id number] / [id number] / N/A Glenosphere Shldr/Rev Equinoxe W/Cp/Lk/Ext 38mm - [id number] - [id number] Implanted:Qt y: 1 on 08/06/2024 by Anup Louis MD at [facility] Implant Right: Shoulder EXACTECH [id number] 03/21/2034 [id number] / [id number] / N/A Scrw Lk Equinoxe Glenosphere Rev/Shldr - [id number] - [id number] Implanted:Qt y: 1 on 08/06/2024 by Anup Louis MD at [facility] Implant Right: Shoulder EXACTECH [id number] 03/18/2029 [id number] / [id number] / N/A Scrw Compr Equinoxe Lk 4.5x42mm - [id number] - [id number] Implanted:Qt y: 1 on 08/06/2024 by Anup Louis MD at [facility] Implant Right: Shoulder EXACTECH [id number] 09/23/2025 [id number] / [id number] / N/A Sut Fw #2 W/Tpr Ndl 1/2 Cir 38in 97cm 26.5mm Darryn - [id number] Implanted:Qt y: 1 on 08/06/2024 by Anup Louis MD at [facility] Implant Right: Shoulder ARTHREX [id number] 04/20/2028 [id number] / / [id number] Additional Health Concerns Active Problems Noted Date Diagnosed Date Autogenerated Problem 06/03/2025 Insurance MEDICARE A & B Member Subscriber Plan / Payer (Ef fective 2021-Present) Name:Eliza Lambert Member ID:[id number] Relation to Subscriber:Self Name:Eliza Lambert Subscriber ID:[id number] Payer ID:[id number] Group ID:Not on file Type:Not on file Address: [facility] [id number] [address] Care Teams Evaluation Engineer Relationship Specialty Start Date End Date Harris Quinn MD [address] [facility] [address] [place] [address] PCP - General Adolescent Medicine 07/24/24
--- OUTSIDE RECORDS SUMMARY | 2025-07-28 12:09 | XMS_ITS | Encounter Summary ---
Author Organization [employer] ([place], [place], [place], [place]) Address [address] [place] [address] Care Team Providers Care Equipment Tester Name Role Phone Harris Quinn MD Primary Care Provider + [phone] Jackie Prado SENIOR PARTNER Unavailable + [phone] Encounter Details Date Type Department Care Team (Late st Contact Info) Description 09/27/2020 Transcribed Document [facility] [place] [address] [place] [address] ProviderJerrica MD [address] [place] [address] Social History Tobacco Use Types Packs/Day Years Used Date Smoking Tobacco: Never Assessed Sex and Gender Information Value Date Recorded Sex Assigned at Male 06/20/2024 10:08 AM CDT Legal Sex Male 7:36 AM SIDER MECHANIC Gender Identity Male 06/20/2024 10:08 AM CDT Sexual Orientation Not on file documented as of this encounter Miscellaneous Notes * Cerner Conversion Note - Jerrica Clayton MD - 09/27/2020 5:27 PM SIDER MECHANIC Consult Phone Call Documentation Entered On: 09/27/2020 18:53 EST Performed On: 09/27/2020 17:27 EST by KATHY MOTLEY, RN Phone Call for Consults Consult Phone Call/Page Attempt : First call Physician Covering for Consult : TROY MCCLURE MD-LUISA Date and Time Call Returned : 09/27/2020 18:00 EST Physician Returning Call : TORY MCCLURE MD-U KATHY MOTLEY, RN - 09/27/2020 18:52 EST documented in this encounter Plan of Treatment Not on file documented as of this encounter Visit Diagnoses Not on filedocumented in this encounter Care Teams Equipment Tester Relationship Specialty Start Date End Date Harris Quinn MD [address] [place] [facility] [address] [place] [address] PCP - General Adolescent Medicine 01/12/24 Jackie Prado, SENIOR PARTNER [address] [place] [address], [place] [address] Referring Physician Nurse Practitioner 01/12/24 documented as of this encounter
--- OUTSIDE RECORDS SUMMARY | 2025-07-28 12:09 | XMS_ITS | Encounter Summary ---
Author Organization [employer] ([place], [place], [place], [place]) Address [address] [place] [address] Care Team Providers Care Hvac Service Tech Name Role Phone Harris Quinn MD Primary Care Provider + [phone] Jackie Prado CRIMINALIST Unavailable + [phone] Encounter Details Date Type Department Care Team (Late st Contact Info) Description 10/03/2020 Transcribed Document [facility] [place] Family Medicine [address] [place] [address] ProviderJerrica MD [address] [place], [place] [address] Social History Tobacco Use Types Packs/Day Years Used Date Smoking Tobacco: Never Assessed Sex and Gender Information Value Date Recorded Sex Assigned at Male 06/20/2024 10:08 AM CDT Legal Sex Male 7:36 AM PRECAST MOLDER Gender Identity Male 06/20/2024 10:08 AM CDT Sexual Orientation Not on file documented as of this encounter Miscellaneous Notes * Cerner Conversion Note - Historical ProviderMD - 10/03/2020 2:25 PM PRECAST MOLDER Stroke/Warfarin Instructions Entered On: 10/03/2020 14:25 EST Performed On: 10/03/2020 14:25 EST by GABY GRAVES RN Stroke/Warfarin Instructions Stroke/TIA Discharge Ins : N/A Warfarin Discharge Ins : N/A GABY GRAVES RN - 10/03/2020 14:25 EST Electronically signed by Bailey [facility] Conversion Wallpaper Installer Cerner at 03/08/2023 11:39 PM CDT documented in this encounter Plan of Treatment Not on file documented as of this encounter Visit Diagnoses Not on filedocumented in this encounter Care Teams Hvac Service Tech Relationship Specialty Start Date End Date Harris Quinn MD [address] [place] [facility] [address] [place] [address] PCP - General Adolescent Medicine 01/12/24 Jackie Prado, CRIMINALIST [address] [place] [facility] [address], [place] [address] Referring Physician Nurse Practitioner 01/12/24 documented as of this encounter
--- OUTSIDE RECORDS SUMMARY | 2025-07-28 12:09 | XMS_ITS | Encounter Summary ---
Author Organization [employer] ([place], [place], [place], [place]) Address [address] [place] [address] Care Team Providers Care Heavy Duty Press Operator Name Role Phone Harris Quinn MD Primary Care Provider + [phone] Jackie Prado DIRECTOR PHARMACEUTICAL Unavailable + [phone] Encounter Details Date Type Department Care Team (Late st Contact Info) Description 09/30/2020 Transcribed Document [facility] Radiology [address] [place] [id number] Stu Liang MD [address] [place] [address] [address] [place] [address] Social History Tobacco Use Types Packs/Day Years Used Date Smoking Tobacco: Never Assessed Sex and Gender Information Value Date Recorded Sex Assigned at Male 06/20/2024 10:08 AM CDT Legal Sex Male 7:36 AM PHARMACEUTICAL LABORATORY TECHNICIAN Gender Identity Male 06/20/2024 10:08 AM CDT Sexual Orientation Not on file documented as of this encounter Miscellaneous Notes * Cerner Conversion Note - Stu Liang MD - 09/30/2020 11:11 AM EST Patient: EILZA GUARDADO Age: 65 years Sex: Male : [...] on filedocumented in this encounter Care Teams Heavy Duty Press Operator Relationship Specialty Start Date End Date Harris Quinn MD [address] [place] [address] [place] [address] PCP - General Adolescent Medicine 01/12/24 Jackie Prado, DIRECTOR PHARMACEUTICAL [address] [place] [address], [place] [address] Referring Physician Nurse Practitioner 01/12/24 documented as of this encounter
--- OUTSIDE RECORDS SUMMARY | 2025-07-28 12:09 | XMS_ITS | Encounter Summary ---
Author Organization [employer] ([place], [place], [place], [place]) Address [address] [place] [address] Care Team Providers Care Civil Engineer'S Aide Name Role Phone Harris Quinn MD Primary Care Provider + [phone] Jackie Prado COUNTER SERVER Unavailable + [phone] Encounter Details Date Type Department Care Team (Late st Contact Info) Description 10/03/2020 Transcribed Document [facility] [place] Medicine [address] [place] [address] ProviderJerrica MD [address] [place], [place] [address] Social History Tobacco Use Types Packs/Day Years Used Date Smoking Tobacco: Never Assessed Sex and Gender Information Value Date Recorded Sex Assigned at Male 06/20/2024 10:08 AM CDT Legal Sex Male 7:36 AM MODELING AGENT Gender Identity Male 06/20/2024 10:08 AM CDT Sexual Orientation Not on file documented as of this encounter Miscellaneous Notes * Cerner Conversion Note - Jerrica Clayton MD - 10/03/2020 3:53 PM MODELING AGENT Final Discharge Planning Entered On: 10/03/2020 15:54 EST Performed On: 10/03/2020 15:53 EST by RICHIE GLASGOW RN-Executive Director Contract Shop Final Discharge Planning Discharge Arrangements : Patient [...] : Yes Discharge To Care Management : Home/Residential/Mcc or Self Care - RICHIE GLASGOW RN-Executive Director Contract Shop - 10/03/2020 15:53 EST Final Narrative Note Final Narrative Note : DC orders noted. FRW obtained from [facility] as he has no dme provider pref and it has been delivered. Pt still declining HH services. No other CM needs noted. RICHIE GLASGOW RN-Executive Director Contract Shop - 10/03/2020 15:53 EST Electronically signed by Interface, [facility] Conversion Player Development Executive Cerner at 03/08/2023 11:49 PM CDT documented in this encounter Plan of Treatment Not on file documented as of this encounter Visit Diagnoses Not on filedocumented in this encounter Care Teams Civil Engineer'S Aide Relationship Specialty Start Date End Date Harris Quinn MD [address] [place] [address] [place] [address] PCP - General Adolescent Medicine 01/12/24 Jackie Prado, COUNTER SERVER [address] [place] [address] [place] [address] Referring Physician Nurse Practitioner 01/12/24 documented as of this encounter
--- OUTSIDE RECORDS SUMMARY | 2025-07-28 12:09 | XMS_ITS | Encounter Summary ---
Author Organization [employer] ([place], [place], [place], [place]) Address [address] [place] [address] Care Team Providers Care Production Leader Name Role Phone Harris Quinn MD Primary Care Provider + [phone] Jackie Prado MECHANICS HANDYMAN Unavailable + [phone] Encounter Details Date Type Department Care Team (Late st Contact Info) Description 10/01/2020 Transcribed Document [facility] [place] Family Medicine [address] [place] [address] ProviderJerrica MD [address] [place], [place] [address] Social History Tobacco Use Types Packs/Day Years Used Date Smoking Tobacco: Never Assessed Sex and Gender Information Value Date Recorded Sex Assigned at Male 06/20/2024 10:08 AM CDT Legal Sex Male 7:36 AM PAYROLL AUDITOR Gender Identity Male 06/20/2024 10:08 AM CDT Sexual Orientation Not on file documented as of this encounter Miscellaneous Notes * Cerner Conversion Note - Jerrica ProviderMD - 10/01/2020 2:00 PM PAYROLL AUDITOR Pain Assessment Entered On: 10/01/2020 17:59 EST [...] on filedocumented in this encounter Care Teams Production Leader Relationship Specialty Start Date End Date Harris Quinn MD [address] [facility] [address] [place] [address] PCP - General Adolescent Medicine 01/12/24 Jackie Prado, MECHANICS HANDYMAN [address] [place] [facility] [address], [place] [address] Referring Physician Nurse Practitioner 01/12/24 documented as of this encounter
--- OUTSIDE RECORDS SUMMARY | 2025-07-28 12:09 | XMS_ITS | Encounter Summary ---
Author Organization [employer] ([place], [place], [place], [place]) Address [address] [place] [address] Care Team Providers Care Rustic Fence Builder Name Role Phone Harris Quinn MD Primary Care Provider + [phone] Jackie Prado CORRECTIONAL SUPERVISING COOK Unavailable + [phone] Encounter Details Date Type Department Care Team (Late st Contact Info) Description 09/30/[address] [facility] [place] Family Medicine [address] [place] [address] ProviderJerrica MD [address] [place], [place] [id number] Social History Tobacco Use Types Packs/Day Years Used Date Smoking Tobacco: Never Assessed Sex and Gender Information Value Date Recorded Sex Assigned at Male 06/20/2024 10:08 AM CDT Legal Sex Male 7:36 AM VALIDATION MANAGER Gender Identity Male 06/20/2024 10:08 AM CDT Sexual Orientation Not on file documented as of this encounter Miscellaneous Notes * Cerner Conversion Note - Jerrica ProviderMD - 09/30/2020 8:15 PM VALIDATION MANAGER Pain Assessment Entered On: 10/01/2020 2:35 EST [...] the form. Electronically signed by Bailey, [facility] Conversion Flatbed Driver Cerner at 03/08/2023 11:26 PM CDT documented in this encounter Plan of Treatment Not on file documented as of this encounter Visit Diagnoses Not on filedocumented in this encounter Care Teams Rustic Fence Builder Relationship Specialty Start Date End Date Harris Quinn MD [address] [place] [facility] [address] [place] [address] PCP - General Adolescent Medicine 01/12/24 Jackie Prado, LEORA [address] [place] [address], [place] [address] Referring Physician Nurse Practitioner 01/12/24 documented as of this encounter
--- OUTSIDE RECORDS SUMMARY | 2025-07-28 12:09 | XMS_ITS | Encounter Summary ---
Author Organization [employer] ([place], [place], [place], [place]) Address [address] [place] [address] Care Team Providers Care Vice President Financial Name Role Phone Harris Quinn MD Primary Care Provider + [phone] Jackie Prado PERSONNEL GENERALIST MANAGER Unavailable + [phone] Encounter Details Date Type Department Care Team (Late st Contact Info) Description 10/03/[address] [facility] Radiology [address] [place] [phone] Stu Liang MD [address] [place] [address] [address] [place] [address] Social History Tobacco Use Types Packs/Day Years Used Date Smoking Tobacco: Never Assessed Sex and Gender Information Value Date Recorded Sex Assigned at Male 06/20/2024 10:08 AM CDT Legal Sex Male 7:36 AM VALUE STREAM MANAGER Gender Identity Male 06/20/2024 10:08 AM [...] nerve root. There is contact of the [id number] root in the lateral recess.L3-L4: There is [...] stenosis. This contacts and displaces the right Y3xdsvg root. There is mild right foraminal narrowing. [...] mg, Oral, Daily Lovenox: 70 mg, SubCutaneous, [id number] MiraLax: 17 Gram, Oral, Daily, PRN: Constipation [...] on filedocumented in this encounter Care Teams Vice President Financial Relationship Specialty Start Date End Date Harris Quinn MD [address] [place] [address] [place] [address] PCP - General Adolescent Medicine 01/12/24 Jackie Prado, PERSONNEL GENERALIST MANAGER [address] [place] [address], [place] [address] Referring Physician Nurse Practitioner 01/12/24 documented as of this encounter
--- OUTSIDE RECORDS SUMMARY | 2025-07-28 12:09 | XMS_ITS | Encounter Summary ---
Author Organization [employer] ([place], [place], [place], [place]) Address [address] [place] [address] Care Team Providers Care Accredited Farm Manager Name Role Phone Harris Quinn MD Primary Care Provider + [phone] Jackie Prado CASHIER TUBE ROOM Unavailable + [phone] Encounter Details Date Type Department Care Team (Late st Contact Info) Description 09/30/[address] [facility] [place] Family Medicine [address] [place] [address] ProviderJerrica MD [address] [place] [address] Social History Tobacco Use Types Packs/Day Years Used Date Smoking Tobacco: Never Assessed Sex and Gender Information Value Date Recorded Sex Assigned at Male 06/20/2024 10:08 AM CDT Legal Sex Male 7:36 AM TUFTING MACHINE FIXER Gender Identity Male 06/20/2024 10:08 AM CDT Sexual Orientation Not on file documented as of this encounter Miscellaneous Notes * Cerner Conversion Note - Historical ProviderMD - 09/30/2020 8:15 PM TUFTING MACHINE FIXER Evaluation, Occupational Therapy Entered On: 10/01/2020 11:40 [...] Functional mobility training, Therapeutic activities CHRISTIAN FONTANEZ OTR/eSbastien - 10/01/2020 11:36 EST Prison Goals, OT Grooming LTG Grid Goal #1 [...] the text rendition version of the form. [place] OT Charges OT Eval Low Complexity : 1 CHRISTIAN FONTANEZ OTR/Sebastien - 10/01/2020 11:36 EST Electronically signed by [facility] [place], [facility] Conversion Bend Sorter Cerner at 03/08/2023 11:45 PM CDT documented in this encounter Plan of Treatment Not on file documented as of this encounter Visit Diagnoses Not on filedocumented in this encounter Care Teams Accredited Farm Manager Relationship Specialty Start Date End Date Harris Quinn MD [address] [place] [facility] [address] [place] [address] PCP - General Adolescent Medicine 01/12/24 Jackie Prado, CASHIER TUBE ROOM [address] [place] [address], [place] [address] Referring Physician Nurse Practitioner 01/12/24 documented as of this encounter
--- OUTSIDE RECORDS SUMMARY | 2025-07-28 12:09 | XMS_ITS | Encounter Summary ---
Author Organization [employer] ([place], [place], [place], [place]) Address [address] [place] [address] Care Team Providers Care Band Salvager Name Role Phone Harris Quinn MD Primary Care Provider + [phone] Jackie Prado CRUSHED STONE GRADER Unavailable + [phone] Encounter Details Date Type Department Care Team (Late st Contact Info) Description 09/30/2020 Transcribed Document [facility] [place] Family Medicine [address] [place] [address] ProviderJerrica MD [address] [place] [address] Social History Tobacco Use Types Packs/Day Years Used Date Smoking Tobacco: Never Assessed Sex and Gender Information Value Date Recorded Sex Assigned at Male 06/20/2024 10:08 AM CDT Legal Sex Male 7:36 AM HUMAN FACTORS ENGINEER Gender Identity Male 06/20/2024 10:08 AM CDT Sexual Orientation Not on file documented as of this encounter Miscellaneous Notes * [employer]ner Conversion Note - Historical ProviderMD - 09/30/2020 8:15 PM HUMAN FACTORS ENGINEER Evaluation, Physical Therapy Entered On: 10/01/2020 11:39 [...] PT : 65 yo male adm to [facility] 09/29 for Intractable back pain, and R [...] ANGÉLICA LARSEN, PT - 10/01/2020 11:25 EST Director Packaging Goals Mobility/Bed Mobility LTG PT Grid Goal [...] ANGÉLICA LARSEN, PT - 10/01/2020 11:25 EST [facility] PT Charges PT Eval Low Complexity : 1 ANGÉLICA LARSEN, PT - 10/01/2020 11:25 EST Electronically signed by [facility] Conversion Data Support Analyst Cerner at 03/08/2023 11:41 PM CDT documented in this encounter Plan of Treatment Not on file documented as of this encounter Visit Diagnoses Not on filedocumented in this encounter Care Teams Band Salvager Relationship Specialty Start Date End Date Harris Quinn MD [address] [facility] [address] [place] [address] PCP - General Adolescent Medicine 01/12/24 Jackie Prado, CRUSHED STONE GRADER [address], [place] [address] Referring Physician Nurse Practitioner 01/12/24 documented as of this encounter
--- OUTSIDE RECORDS SUMMARY | 2025-07-28 12:09 | XMS_ITS | Encounter Summary ---
Author Organization [employer] ([place], [place], [place], [place]) Address [address] [place] [address] Care Team Providers Care Thermometer Tester Name Role Phone Harris Quinn MD Primary Care Provider + [phone] Jackie Prado REFINISHER Unavailable + [phone] Encounter Details Date Type Department Care Team (Late st Contact Info) Description 09/27/2020 Transcribed Document [facility] [place] [address] [place] [address] ProviderJerrica MD [address] [place] [address] Social History Tobacco Use Types Packs/Day Years Used Date Smoking Tobacco: Never Assessed Sex and Gender Information Value Date Recorded Sex Assigned at Male 06/20/2024 10:08 AM CDT Legal Sex Male 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 Gender Identity Male 06/20/2024 10:08 AM CDT Sexual Orientation Not on file documented as of this encounter Miscellaneous Notes * [employer]ner Conversion Note - Jerrica ProviderMD - 09/27/2020 5:04 PM INSPECTOR MACHINE CUT GLASS Admission History, Adult Entered On: 09/27/2020 17:13 [...] Support Person/Pt Rep Name : mannie lambert [phone] Contact Password : heather christianson Support Person/Pt Rep Contact Information : daughter Want Family/Rep/Phys Notified of Admit : No Emergency Contact #1 : n Emergency Contact #1 Phone Number : n Emergency Contact #1 Relationship : n Emergency Contact #2 : n Emergency Contact #2 Phone Number : n Emergency Contact #2 Relationship : n Primary Language : Nigerian Communication Barrier : None Deck Hand Needed : No KATHY MOTLEY RN - [...] Scale Risk Level : 25-45 Medium Risk [place] Fall Interventions : Adequate lighting, Assistive devices [...] Source : Stated Height Entry Format : [place] Height, Feet : 5 ft(Converted to: 152 cm, 60 Inch) Height, Inches : 5 Inch(Converted to: 0 ft 5 Inch, 12.70 cm) Clinical Height : 165.1 cm Weight Source : Bed scale Weight Entry Format : [place] Clinical Dosing Weight : 72.77 kg Weight, Pounds : 160.1 lb Body Surface Area (BSA) : 1.8 m2 Body Mass Index : 26.7 kg/m2 (HI) [place] Body Weight : 61 kg KATHY MOTLEY [...] KATHY MOTLEY RN - 09/27/2020 17:35 EST [place] Suicide Severity Rating Scale (C-SSRS) CSSRS Past [...] - 09/27/2020 17:35 EST Electronically signed by [facility] Conversion Database Engineer Cerner at 03/08/2023 11:43 PM CDT documented in this encounter Plan of Treatment Not on file documented as of this encounter Visit Diagnoses Not on filedocumented in this encounter Care Teams Thermometer Tester Relationship Specialty Start Date End Date Harris Quinn MD [address] [place] [address] [place] [address] PCP - General Adolescent Medicine 01/12/24 Jackie Prado, REFINISHER [address] [place] [address], [place] [address] Referring Physician Nurse Practitioner 01/12/24 documented as of this encounter
--- OUTSIDE RECORDS SUMMARY | 2025-07-28 12:09 | XMS_ITS | Encounter Summary ---
Author Organization [employer] ([place], [place], [place], [place]) Address [address] [place] [address] Care Team Providers Care Freight Sales Broker Name Role Phone Harris Quinn MD Primary Care Provider + [phone] Jackie Prado MINERAL WOOL INSULATION SUPERVISOR Unavailable + [phone] Encounter Details Date Type Department Care Team (Late st Contact Info) Description 09/27/2020 Transcribed Document [facility] [place] [address] [place] [address] ProviderJerrica MD [address] [place], [place] [id number] Social History Tobacco Use Types Packs/Day Years Used Date Smoking Tobacco: Never Assessed Sex and Gender Information Value Date Recorded Sex Assigned at Male 06/20/2024 10:08 AM CDT Legal Sex Male 7:36 AM CONTRACT ACCOUNTANT Gender Identity Male 06/20/2024 10:08 AM CDT Sexual Orientation Not on file documented as of this encounter Miscellaneous Notes * Cerner Conversion Note - Jerrica Clayton MD - 09/27/2020 5:26 PM CONTRACT ACCOUNTANT Pain Assessment Entered On: 09/30/2020 6:28 EST [...] of the form. Electronically signed by Bailey, [facility] Conversion Director Treasurer Cerner at 03/11/2023 9:23 AM CDT documented in this encounter Plan of Treatment Not on file documented as of this encounter Visit Diagnoses Not on filedocumented in this encounter Care Teams Freight Sales Broker Relationship Specialty Start Date End Date Harris Quinn MD [address] [facility] [address] [place] [address] PCP - General Adolescent Medicine 01/12/24 Jackie Prado APRN [address] [place] [address], [place] [address] Referring Physician Nurse Practitioner 01/12/24 documented as of this encounter
--- OUTSIDE RECORDS SUMMARY | 2025-07-28 12:09 | XMS_ITS | Encounter Summary ---
Author Organization [employer] ([place], [place], [place], [place]) Address [address] [place] [address] Care Team Providers Care Hydraulic Tester Name Role Phone Harris Quinn MD Primary Care Provider + [phone] Jackie Prado ELECTRONIC DRAFTER Unavailable + [phone] Encounter Details Date Type Department Care Team (Late st Contact Info) Description 09/30/2020 Transcribed Document [facility] [place] Family Medicine [address] [place] [address] ProviderJerrica MD [address] [place], [place] [id number] Social History Tobacco Use Types Packs/Day Years Used Date Smoking Tobacco: Never Assessed Sex and Gender Information Value Date Recorded Sex Assigned at Male 06/20/2024 10:08 AM CDT Legal Sex Male 7:36 AM CUSTOMS CONSULTANT Gender Identity Male 06/20/2024 10:08 AM CDT Sexual Orientation Not on file documented as of this encounter Miscellaneous Notes * [employer]ner Conversion Note - Historical ProviderMD - 09/30/2020 8:20 AM CUSTOMS CONSULTANT Spiritual Care Short Form Entered On: 09/30/2020 8:49 EST Performed On: 09/30/2020 8:20 EST by KALYAN VIEIRA General Information, Spiritual Care Spiritual Care Referred by : Pipe Line Repairer initiated Reason for Visit : Referral/Consult Ministry Provided to : Patient Intervention/Comment/Summary Points : Pre-surgery visit. Provided supportive presence. KALYAN VIEIRA - 09/30/2020 8:48 EST Electronically signed by [facility] Conversion Tool Die Maker Cerner at 03/08/2023 11:30 PM CDT documented in this encounter Plan of Treatment Not on file documented as of this encounter Visit Diagnoses Not on filedocumented in this encounter Care Teams Hydraulic Tester Relationship Specialty Start Date End Date Harris Quinn MD [address] [facility] [address] [place] [address] PCP - General Adolescent Medicine 01/12/24 Jackie Prado, ELECTRONIC DRAFTER [address] [facility] [address], [place] [address] Referring Physician Nurse Practitioner 01/12/24 documented as of this encounter
--- NOTE | 2025-07-28 12:11 | XR_ITS ---
PROCEDURE INFORMATION: Exam: XR Chest Exam date and time: 07/28/2025 12:15 PM Age: 70 years old Clinical indication: Other: Covid TECHNIQUE: Imaging protocol: Radiologic exam of the chest. Views: 2 views. COMPARISON: 1. CT LUNG SCREENING 02/19/2025 10:11 AM 2. Chest x-ray dated January 30, 2025. 3. Chest x-ray dated November 09, 2023. FINDINGS: Lungs: No CHF. No new airspace consolidation suspicious for pneumonia. Pleural spaces: No large pleural effusion. No pneumothorax. Heart/Mediastinum: Heart size is within normal limits. Mediastinal contours are smooth. Vasculature: Mild central vascular fullness. Carotid artery calcifications are present on the left. Bones/joints: Moderate to severe scoliosis. Multilevel advanced degenerative changes are present throughout the spine. Status post prior right shoulder arthroplasty. IMPRESSION: No acute findings within the chest.
--- NOTE | 2025-07-28 12:12 | CT_ITS ---
PROCEDURE INFORMATION: Exam: CT Cervical Spine Without Contrast Exam date and time: 07/28/2025 12:35 PM Age: 70 years old Clinical indication: Injury or trauma; Fall; Other: Pain TECHNIQUE: Imaging protocol: Computed tomography of the cervical spine without contrast. Radiation optimization: All CT scans at this facility use at least one of these dose optimization techniques: automated exposure control; mA and/or kV adjustment per patient size (includes targeted exams where dose is matched to clinical indication); or iterative reconstruction. COMPARISON: CT ANGIO NECK 11/09/2023 3:07 PM FINDINGS: Bones: There is rotatory positioning of C1 relative to C2, likely positional. Please correlate clinically. Dextroconvex curvature of the cervical spine is noted. There is no evidence for acute cervical fracture. There is straightening of the cervical lordosis. Multilevel spondylosis is present with disc osteophyte, uncovertebral spurring and facet arthropathy. There is no significant cord compression. Notable neural foraminal stenosis is noted at multiple levels primarily due to uncovertebral spurring and facet arthropathy, worst on the right at C5-C6 and C6-C7 where there is severe narrowing. Lungs: Lung apices are normal. Soft tissues: Unremarkable. IMPRESSION: No evidence for acute cervical fracture.
--- NOTE | 2025-07-28 12:12 | CT_ITS ---
PROCEDURE INFORMATION: Exam: CT Head Without Contrast Exam date and time: 07/28/2025 12:33 PM Age: 70 years old Clinical indication: Injury or trauma; Fall; Other: Pain; Additional info: Fall on blood thinners TECHNIQUE: Imaging protocol: Computed tomography of the head without contrast. Radiation optimization: All CT scans at this facility use at least one of these dose optimization techniques: automated exposure control; mA and/or kV adjustment per patient size (includes targeted exams where dose is matched to clinical indication); or iterative reconstruction. COMPARISON: MR HEAD/BRAIN WO CON 03/20/2024 8:59 AM FINDINGS: Brain: There is no mass effect, midline shift, acute hemorrhage, extra-axial fluid collection or acute lobar infarct. 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 Cerebral ventricles: No ventriculomegaly. Paranasal sinuses: Mucosal thickening and polypoid disease is noted within ethmoid air cells and the floor of the right maxillary antrum. Mastoid air cells: Visualized mastoid air cells are well aerated. Bones: Unremarkable. No acute fracture. Soft tissues: Unremarkable. IMPRESSION: No acute intracranial process.
--- NOTE | 2025-07-28 12:15 | ECG_ITS ---
APPROVED REPORT Exam: Resting ECG HR:85 bpm ECG Measurements Heart Rate 85 AXES ND 181 P 54 QRSd 97 QRS 31 QT 362 T 78 QTc 404 Conclusion SINUS RHYTHM NORMAL ECG UNCONFIRMED REPORT Electronically signed by : Fredo Andrew, 07/28/2025 16:09:51
--- NOTE | 2025-07-28 12:16 | ED_ITS ---
<Statement entered by Fredo Andrew MD - 07/28/25 16:07> I was consulted by the LEA, and we discussed the complexity of problems being addressed. I approved the treatment and management plan for this patient's care in the emergency department, thus performing a substantial portion of the medical decision making. Fredo Andrew MD Discharge Plan Disposition Patient Disposition: Home, Self-Care Condition: Good Prescriptions Prescriptions: No Action pyridoxine (vitamin B6) 50 mg tablet 50 mg PO DAILY Patient Comments: TAKE ONE TABLET BY MOUTH EVERY DAY atorvastatin 40 mg tablet 40 mg PO DAILY Patient Comments: TAKE ONE TABLET BY MOUTH EVERY DAY cyanocobalamin (vitamin B-12) 1,000 mcg/mL solution 1,000 mcg SQ MONTHLY Patient Comments: INJECT 1 ML SUBCUTANEOUSLY ONCE monthly DIRECTED (DME) BD Luer-Magdalena Syringe 3 mL 25 gauge x 1 syringe See Rx Instructions .ROUTE .MEDSUPPLY Qty: 1 Patient Comments: USE DIRECTED with b12 injection Rx Instructions: As directed methotrexate sodium 2.5 mg tablet 20 mg PO WEEKLY Patient Comments: TAKE EIGHT TABLETS BY MOUTH ONCE WEEKLY amlodipine 2.5 mg tablet 2.5 mg PO DAILY Qty: 30 2RF valsartan 320 mg tablet 320 mg PO DAILY Qty: 30 2RF loratadine [Claritin] 10 mg tablet 10 mg PO DAILY cholecalciferol (vitamin D3) 125 mcg (5,000 unit) capsule 125 mcg PO DAILY fish [id number]-5-vit C-vit E 2,000-650-12 mg/2.5 gram emulsion in packet See Rx Instructions PO .COMPLEX Rx Instructions: orally daily; famotidine [Pepcid] 20 mg tablet 20 mg PO DAILY Eliquis 5 mg tablet See Rx Instructions .ROUTE .COMPLEX Qty: 180 3RF Dose Instruction: TAKE ONE TABLET BY MOUTH TWICE DAILY Rx Instructions: TAKE ONE TABLET BY MOUTH TWICE DAILY bisoprolol fumarate 5 mg tablet See Rx Instructions .ROUTE .COMPLEX Qty: 90 3RF Dose Instruction: TAKE ONE TABLET BY MOUTH EVERY DAY Rx Instructions: TAKE ONE TABLET BY MOUTH EVERY DAY methocarbamol 1,000 mg tablet 1,000 mg PO QID PRN (Reason: Spasms) 3 Days Qty: 12 0RF lidocaine 5 % adhesive patch,medicated 1 patch topical DAILY Qty: 15 0RF Rx Instructions: leave on most painful area for up to 12 hrs gabapentin 300 mg Capsule 300 mg PO PM folic acid 1 mg Tablet 1 mg PO DAILY hydrocodone-acetaminophen 10-325 mg Tablet 1 tab PO Q6HP PRN (Reason: PAIN) Referrals Follow up/Referrals: Harris Quinn MD [Primary Care Provider, Internal Medicine] - See instructions Activity Restrictions/Add. Instructions Additional Instructions/Restrictions: No sign of a bacterial infection. Likely viral. Viruses can take 7-14 days to run their course. Nasal saline and bulb syringe or nose Shante to remove nasal drainage to help with nasal congestion. Hard to eat, drink, sleep with nasal congestion so important to keep this cleaned out. Monitor temp. Tylenol or Motrin as needed for pain or fever Encourage fluids, water, Gatorade, Powerade, Pedialyte if /toddler/child Warm salt water gargles Warm fluids Sore throat lozenges Sleep elevated Humidifier/vaporizer Follow-up immediately for new or worsening symptoms or no noticeable improvement over the next 48-72 hours. Clinical Impressions Clinical Impression: COVID, Weakness Instructions Patient Instructions: DI for Muscle Weakness, COVID-19 Print Language Print Language: Cameroonian Discharge ED Provider: Fredo Andrew General Adult HPI General Chief complaint: Weakness Stated complaint: AO 07/27/2025 Covid test 07/27/2025 Time Seen by Provider: 07/28/25 12:13 Mode of Arrival: Wheelchair Source of Information: Patient and Relative Description of Symptoms (Recalled from ER Triage Doc. by RN): positive home covid test yesterday. pt is experiencing weakness and diarrhea since . he takes methotrexate for RA. eliquis for afib fell off the couch x2 History of Present Illness HPI narrative: 70-year-old male presents for weakness and diarrhea since Tuesday. Patient states on Tuesday he started with diarrhea and then last night started having a sore throat and his daughter did a home COVID test which was positive. This morning while sleeping on the couch fell twice once hitting forehead and the other hit in the side of his head. Patient states his legs were weak causing him to fall Related Data Home Medications ?Medication ?Instructions ?Recorded ?Confirmed folic acid 1 mg tablet 1 mg PO DAILY Supplement 10/1307/15/25 gabapentin 300 mg capsule 300 mg PO PM Rheumatoid arth ritis 01/01/23 07/15/25 hydrocodone 10 mg-acetaminophen 1 tab PO Q6HP PRN PAIN 01/01/23 07/15/25 325 mg tablet cholecalciferol (vitamin D3) 125 125 mcg PO DAILY 11/2307/15/25 mcg (5,000 unit) capsule famotidine 20 mg tablet (Pepcid) 20 mg PO DAILY 07/15/25 fish [id number] C-vit E 2,000 See Rx Instructions PO .COMPLEX 12/21/23 07/15/25 mg-650 mg-12 mg/2.5 g emulsion packt loratadine 10 mg tablet (Claritin) 10 mg PO DAILY 11/2307/15/25 pyridoxine (vitamin B6) 50 mg 50 mg PO DAILY 07/17/24 07/15/25 tablet atorvastatin 40 mg tablet 40 mg PO DAILY 01/15/2506/22 cyanocobalamin (vitamin B-12) 1,000 mcg SQ MONTHLY 07/15/25 1,000 mcg/mL injection solution syringe with needle 3 mL 25 gauge #1 ea 01/15/2507/15 x 1 (BD Luer-Magdalena Syringe) methotrexate sodium 2.5 mg tablet 20 mg PO WEEKLY 06/2207/15/25 Previous Rx's ?Medication ?Instructions ?Recorded lidocaine 5 % topical patch 1 patch topical DAILY #15 ea 01/30/25 methocarbamol 1,000 mg tablet 1,000 mg PO QID PRN Spas ms 72 01/30/25 hours #12 tabs apixaban 5 mg tablet (Eliquis) See Rx Instructions .Ro rita 02/25/25 .COMPLEX #180 tabs bisoprolol fumarate 5 mg tablet See Rx Instructions .R oute 06/27/25 .COMPLEX #90 tabs amlodipine 2.5 mg tablet 2.5 mg PO DAILY #30 tabs valsartan 320 mg tablet 320 mg PO DAILY #30 tabs Allergies Allergy/AdvReac Type Severity Reaction Status Date / Time No Known Allergies Allergy Verified 07/15/25 09:58 [facility] Disclaimer: The information contained in this section may have been updated after the patient was seen, as this information can be updated by other users. 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) Smoking Status: Never smoker alcohol intake: never substance use type: denies use current occupational status: other Travel in the last 8 weeks?: None Have you lived/traveled outside [place] in past 30 days?: No Contact w/someone who lives/traveled outside US past 30 days?: No Exposure to someone with infectious disease in past 14 days?: No Do you have a fever (greater than 100.4 F or 38 C)?: No Have you tested positive for COVID-19?: Yes Exposed to someone with COVID-19 in past 14 days?: No Do you have a sore throat?: Yes Do you have a cough?: Yes Do you have any weakness?: No Do you have any diarrhea?: Yes Are you experiencing any unusual bleeding?: No Do you have any muscle aches/pain?: No Do you have any abdominal pain?: No Are you experiencing loss of taste or smell?: No Other Medical History Have you received the Flu Vaccine for this season: Yes Have you received the Pneumonia Vaccine: Yes ROS Obtained: Yes All systems reviewed & no additional complaints except as documented Constitutional Constitutional: Reports system reviewed and no additional complaints, except as documented, Reports as per HPI and Reports weakness ENT Ears, Nose, Mouth, and Throat: Reports system reviewed and no additional complaints, except as documented, Reports as per HPI and Reports sore throat Gastrointestinal Gastrointestingal: Reports system reviewed and no additional complaints, except as documented, as per HPI and diarrhea Neurologic Neurologic: Reports system reviewed and no additional complaints, except as documented, Reports as per HPI and Reports weakness Physical Exam General General appearance: alert and in no apparent distress Head Head exam: atraumatic and normal inspection Eye Eye exam: Present normal appearance and PERRL ENT ENT exam: Present normal exam, normal oropharynx and mucous membranes moist Neck Neck exam: Present normal inspection and full ROM Respiratory Respiratory exam: Present normal lung sounds bilaterally Cardiovascular Cardiovascular exam: Present regular rate and normal rhythm Abdominal Exam Abdominal exam: Present soft and normal bowel sounds; Absent tenderness Neurological Exam Neurological exam: Present alert and oriented X3 Skin Skin exam: Present warm and intact Medical Decision Making Medical Records Medical records reviewed: Yes I reviewed the patient's medical records. Screening: Per USPSTF and CDC recommendations, given the prevalence of disease in our region, it is our hospital?s policy to screen for HIV and viral Hepatitis for all patients aged 18 and over and those with ongoing risk factors. Alcon Inquiry Pt receiving controlled substance: No Alcon was queried for this patient: No Vital Signs: 07/28/25 11:57 07/28/25 12:01 07/28/25 12:18 Temperature 98.5 F Temperature Source Oral Pulse Rate 89 87 Pulse Rate [Orthostatic Lying] Pulse Rate [Orthostatic Sitting] Pulse Rate [Orthostatic Standing] Pulse Rate [Right] 88 Respiratory Rate 18 Blood Pressure 117/54 L 115/48 L Blood Pressure [Orthostatic Lying Left Arm] Blood Pressure [Orthostatic Sitting] Blood Pressure [Orthostatic Standing] Blood Pressure [Right Arm] 112/57 L Blood Pressure Mean [Right Arm] 75 02 Sat by Pulse Oximetry 95 94 L 95 Oxygen Delivery Method Room Air 07/28/25 12:20 07/28/25 12:21 07/28/25 12:25 Temperature Temperature Source Pulse Rate 88 86 Pulse Rate [Orthostatic Lying] 83 Pulse Rate [Orthostatic Sitting] 88 Pulse Rate [Orthostatic Standing] 94 H Pulse Rate [Right] Respiratory Rate Blood Pressure 100/44 L 107/49 L Blood Pressure [Orthostatic Lying Left Arm] 115/48 L Blood Pressure [Orthostatic Sitting] 100/44 L Blood Pressure [Orthostatic Standing] 107/49 L Blood Pressure [Right Arm] Blood Pressure Mean [Right Arm] 02 Sat by Pulse Oximetry 95 95 Oxygen Delivery Method 07/28/25 12:41 07/28/25 13:00 07/28/25 13:20 Temperature Temperature Source Pulse Rate 80 73 78 Pulse Rate [Orthostatic Lying] Pulse Rate [Orthostatic Sitting] Pulse Rate [Orthostatic Standing] Pulse Rate [Right] Respiratory Rate 17 12 14 Blood Pressure 129/48 L 134/51 L 124/54 L Blood Pressure [Orthostatic Lying Left Arm] Blood Pressure [Orthostatic Sitting] Blood Pressure [Orthostatic Standing] Blood Pressure [Right Arm] Blood Pressure Mean [Right Arm] 02 Sat by Pulse Oximetry 95 97 98 Oxygen Delivery Method 07/28/25 13:40 07/28/25 14:00 07/28/25 14:20 Temperature Temperature Source Pulse Rate 70 73 71 Pulse Rate [Orthostatic Lying] Pulse Rate [Orthostatic Sitting] Pulse Rate [Orthostatic Standing] Pulse Rate [Right] Respiratory Rate 13 13 14 Blood Pressure 131/62 143/65 H 140/62 Blood Pressure [Orthostatic Lying Left Arm] Blood Pressure [Orthostatic Sitting] Blood Pressure [Orthostatic Standing] Blood Pressure [Right Arm] Blood Pressure Mean [Right Arm] 02 Sat by Pulse Oximetry 98 99 99 Oxygen Delivery Method Lab Data Lab results reviewed: Yes I reviewed the patient's lab results. Lab Results 07/28/25 12:10: WBC 8.0, RBC 4.10 L, Hgb 12.4 L, Hct 37.7 L, MCV 92.0, MCH 30.2, MCHC 32.9, RDW 13.1, Plt Count 240, MPV 9.1, Neut % (Auto) 85.1 H, Lymph % (Auto) 7.0 L, [place] % (Auto) 7.4, Eos % (Auto) 0.1, Baso % (Auto) 0.1, Neut # (Auto) 6.8, Lymph # (Auto) 0.6 L, [place] # (Auto) 0.6, Eos # (Auto) 0.0, Baso # (Auto) 0.0, Sodium 138, Potassium 4.1, Chloride 106, Carbon Dioxide 25, Anion Gap 11.1, BUN 16, Creatinine 1.00, Estimated Creat Clear 72, Estimated GFR 74, Est GFR ( Amer) 90, Glucose 125 H, Calcium 9.5, Total Bilirubin 0.4, AST 34, ALT 30, Alkaline Phosphatase 115, Total Protein 6.9, Albumin 4.2, Globulin 2.7, Albumin/Globulin Ratio 1.6, HCV Ab LARRY w/Rflx PCR Qn Negative, HIV Ag/Ab Combo Qual Negative 07/28/25 12:18: SARS-CoV-2 (PCR) Detected A, Influenza A Untype (PCR) Not detected, Influenza Type B (PCR) Not detected 07/28/25 12:10 07/28/25 12:10 Orders (Tests/Meds): ED MEDICATIONS Discontinued Medications Generic Name Dose Route Start Last Admin Trade Name Shawnq PRN Reason Stop Dose Admin Sodium Chloride 500 mls @ 999 mls/hr 07/28/25 12:15 07/28/25 13:39 Sod Chlor 0.9% 1000ml Bag IV 07/28/25 12:45 Infused .Q31M ONE Infusion ORDERS Category Date Time Status CT cervical spine wo con Stat Cat Scan 07/28/25 12:[address] head/brain wo con Stat Cat Scan 07/28/25 12:12 Completed Chest XR 2 view (NOT portable) [XR chest 2V] Stat Exams 07/28/25 12:11 Completed CBC w/Auto Diff [Complete Blood Count Auto Diff] Stat Lab 07/28/25 12:10 Completed CMP [Comprehensive Metabolic Panel] Stat Lab 07/28/25 12:10 Completed HIV Combo Routine Lab 07/28/25 12:10 Completed Hepatitis C Ab Qual. W/ RFX Routine Lab 07/28/25 12:10 Completed Rapid PCR Covid and Flu A/B Stat Lab 07/28/25 12:18 Completed Medical Decision Narrative: In summary patient is a 70-year-old male who presents to the emergency department for evaluation of weakness, fall, COVID-positive. Patient is hemodynamically stable upon arrival, afebrile. Unremarkable physical exam. Differential diagnosis includes COVID, head injury, dehydration. Initial workup will be conducted with COVID flu swab, labs, CT of the head and neck, chest x- ray. Initial inventions include normal saline 1000 mL and p.o. challenge. Initial workup reviewed by in labs, CT negative, COVID-positive. Upon repeat evaluation patient resting comfortably in stretcher, was able to walk to the bathroom and back to bed without any problem. Patient was also able to drink water and keep it down. Given this patient appropriate for discharge at this time will discharge home. Critical Care Critical Care Time Critical Care Time: No
[2025-07-28 12:19] LABS: Hematocrit 37.7 % (42.0-52.0); Hemoglobin 12.4 g/dL (14.1-18.0); Immature Granulocytes % 0.3 %; Mean Corpuscular HGB Conc 32.9 g/dL (31.8-35.4); Mean Corpuscular Hemoglobin 30.2 pg (27.0-31.2); Mean Corpuscular Volume 92.0 fl (80-94); Nucleated Red Blood Cells % 0 %; Platelet Count 240 K/mm3 (142-424); Red Blood Count 4.10 M/mm3 (4.60-6.20); Red Cell Distribution Width-SD 43.0 fL; White Blood Count 8.0 K/mm3 (4.8-10.8)
[2025-07-28 12:20] LABS: Influenza A, PCR Not Detected (NotDetected); Influenza B, PCR Not Detected (NotDetected)
[2025-07-28 12:22] LABS: Albumin Level 4.2 g/dl (3.5-5.0); Chloride 106 mmol/L (98-107); Potassium 4.1 mmoL/L (3.5-5.1); Sodium 138 mmol/L (136-145)
[2025-07-28 12:24] LABS: Blood Urea Nitrogen 16 mg/dl (9-20); Creatinine Clearance Estimated 72 mL/min (50-200); Creatinine,Serum 1.00 mg/dl (0.66-1.25); Estimated Glomerular Filt Rate 74 ml/min (>60)
[2025-07-28 12:25] LABS: Alanine Aminotransferase 30 U/L (12-78); Albumin/Globulin Ratio 1.6 (1.1-1.8); Alkaline Phosphatase 115 U/L (38-126); Anion Gap 11.1 mEq/L (5-15); Aspartate Amino Transferase 34 U/L (17-59); Bilirubin,Total 0.4 mg/dl (0.2-1.3); Calcium 9.5 mg/dl (8.4-10.2); Carbon Dioxide 25 mmol/L (22.0-30.0); GFR (African American) 90 ML/MIN (>60); Globulin 2.7 g/dL (1.3-3.2); Glucose 125 mg/dl (74-100); Total Protein,Serum 6.9 g/dl (6.3-8.2)
[2025-07-28] MEDS: 0.9 % SODIUM CHLORIDE 1000ML 500 ML 999 ML IV (12:39)
[2025-07-28 13:22] LABS: Coronavirus 19, PCR Detected (NotDetected)
[2025-07-28 13:40] LABS: Hepatitis C Ab Qual. W/ RFX NEGATIVE (Negative)
== END 2025-07-28 15:36 | disposition home or self-care (01) ==
PROVIDERS: Nurse Practitioner Family; Emergency Provider Emergency Medicine; PCP Internal Medicine Adolescent Medicine
DX: U07.1 COVID-19 (principal); E78.5 Hyperlipidemia, unspecified; I10 Essential (primary) hypertension; I48.91 Unspecified atrial fibrillation
CPT/HCPCS: 70450; 71046; 72125; 80053; 85025; 86803; 87389; 87636; 93005; 99285; J7030

== ENCOUNTER 2025-09-03 12:54 | Day surgery (SDC) | payer MEDICARE, BC, SELFPAY ==
[2025-09-03 13:04] VITALS: BP 143/65; PULSE 64; RESP 16; O2SAT 98; BMI 44.1
[2025-09-03] MEDS: BUPIVACAINE 0.25% 10ML INJ 25 MG IJ (13:06)
[2025-09-03] MEDS: LIDOCAINE 1% 5ML PF VIAL 5 ML (13:06)
[2025-09-03 13:07] VITALS: BP 141/50; PULSE 67; RESP 18; O2SAT 97
[2025-09-03] MEDS: DEXAMETHASONE 10MG/ML 1ML VIAL 10 MG (13:07)
[2025-09-03 13:09] VITALS: BP 141/50; PULSE 67; RESP 18; O2SAT 97
--- NOTE | 2025-09-03 13:09 | P.PCN_ITS ---
Procedure Date: 09/03/25 Time: 13:00 Anesthesiologist:: Milton Aguilar CRNA Complications:: None Pre-procedure Diagnosis:: Degenerative disc lumbar spine multilevels. Lumbar radiculopathy. Lumbar spondylosis. Multilevel lumbar facet arthropathy. Lumbar postlaminectomy syndrome. Post-procedure Diagnosis:: Same. Indications for Procedure:: Patient is a very pleasant 70-year-old male who comes our clinic today for round 2 diagnostic lumbar medial branch blocks/facet injections at bilateral L4-5, L5- S1 level. Patient describes significant improvement terms of his overall low back pain lasting 2 to 3 hours after previous injection same level. He describes low back pain as constant, dull, aching. Patient is status post 3 separate thoracolumbar spine surgeries including fusion. He rates his pain today 04/30. Procedure Details:: Informed consent was obtained and the risk and benefits of the procedure was explained to the patient. Patient was taken to the procedure room where noninvasive monitors were placed, including noninvasive blood pressure cuff as well as pulse oximeter. The area over the lumbar spine was cleansed using chlorhexidine as a cleansing solution. I anesthetized the skin and subcutaneous tissues with 1% Lidocaine. I placed 22-gauge spinal needles into the facet joint/ medial branches of L4-L5, and L5-S1 bilaterally. Needle placement was confirmed with fluoroscopy. After confirmation of needle placement, each site was injected with 1 mL of 1% lidocaine and 0.25 % Marcaine 1 mL. Patient tolerated the procedure without difficulty. There were no complications. Plan and Disposition:: Patient was discharged without incident.
[2025-09-03 13:11] VITALS: BP 135/67; PULSE 64; RESP 16; O2SAT 97
== END 2025-09-03 13:11 | disposition home or self-care (01) ==
PROVIDERS: PCP Internal Medicine Adolescent Medicine; Visit Provider Nurse Anesthetist, Certified Registered
DX: M47.26 Other spondylosis with radiculopathy, lumbar region; I48.91 Unspecified atrial fibrillation; I10 Essential (primary) hypertension; I25.10 Atherosclerotic heart disease of native coronary artery without angina pectoris; E78.5 Hyperlipidemia, unspecified; M06.9 Rheumatoid arthritis, unspecified; Z86.718 Personal history of other venous thrombosis and embolism; Z79.01 Long term (current) use of anticoagulants; Z79.899 Other long term (current) drug therapy
CPT/HCPCS: 64493; 64494; J0665; J1100; J2003

== ENCOUNTER 2025-11-12 13:06 | Day surgery (SDC) | payer MEDICARE, BC, SELFPAY ==
[2025-11-12 13:10] VITALS: BP 150/86; PULSE 60; RESP 16; O2SAT 96; BMI 28.3
[2025-11-12 13:22] VITALS: BP 166/52; PULSE 57; RESP 18; O2SAT 100
--- NOTE | 2025-11-12 13:24 | P.PCN_ITS ---
Procedure Date: 11/12/25 Time: 13:10 Anesthesiologist:: Milton Aguilar CRNA Complications:: None Pre-procedure Diagnosis:: Lumbar spondylosis. Multilevel lumbar facet arthropathy. Degenerative disc lumbar spine Post-procedure Diagnosis:: Same Indications for Procedure:: Patient is a pleasant 70-year-old male who comes to clinic today for bilateral lumbar radiofrequency ablation of the L4-5 and L5-S1 level. Patient describes low lumbar back pain as constant, dull, aching. He reports having difficulty with lumbar flexion, extension, left and right rotation. He rates his pain 7/10. Procedure Details:: Procedure Details: Lumbar RFA Informed consent was obtained and the risk and benefits of the procedure was explained to the patient. Patient was placed prone on the procedure table. The patient was prepped and draped in sterile fashion. C-arm fluoroscopy was used to view the lumbar spine. The skin and subcutaneous tissues were anesthetized using lidocaine. I placed 20-gauge RF needles into the facet joints of L3-L4, L4-L5 and L5-S1 bilaterally. We underwent sensory stimulation. There is good sensory stimulation at 0.8 V. We underwent motor stimulation. There is no motor stimulation at 2 V. We then anesthetized these levels with lidocaine and Depo- Medrol. I used a total of 10 mg of dexamethasone for all 3 levels. I then burned all 3 levels of L3-L4, L4-5 and L5-S1 bilaterally for 4 minutes at 80 ?C. Patient tolerated the procedure well with no complication. Plan and Disposition:: We will follow-up with this patient in 2 weeks. We will reevaluate her symptoms at that time. Plan and Disposition:: Patient was discharged without incident.
[2025-11-12] MEDS: BUPIVACAINE 0.25% 10ML INJ 25 MG IJ (13:25)
[2025-11-12] MEDS: DEXAMETHASONE 10MG/ML 1ML VIAL 10 MG (13:26)
[2025-11-12] MEDS: LIDOCAINE 1% 5ML PF VIAL 5 ML (13:26)
[2025-11-12 13:35] VITALS: BP 158/69; PULSE 67; RESP 16; O2SAT 100
== END 2025-11-12 13:35 | disposition home or self-care (01) ==
PROVIDERS: PCP Internal Medicine Adolescent Medicine; Visit Provider Nurse Anesthetist, Certified Registered
DX: M47.816 Spondylosis without myelopathy or radiculopathy, lumbar region (principal); M51.360 Other intervertebral disc degeneration, lumbar region with discogenic back pain only; E78.5 Hyperlipidemia, unspecified; I10 Essential (primary) hypertension; I48.91 Unspecified atrial fibrillation; I65.29 Occlusion and stenosis of unspecified carotid artery; Z86.718 Personal history of other venous thrombosis and embolism; Z79.01 Long term (current) use of anticoagulants; Z79.02 Long term (current) use of antithrombotics/antiplatelets; Z79.899 Other long term (current) drug therapy
CPT/HCPCS: 64635; 64636; J0665; J1100; J2003